=== PATIENT | female | born 1985 | race African-American/Black ===

== ENCOUNTER 2021-06-19 17:02 | Emergency (ER) | payer MEDICAID, OTHER ==
[2021-06-19 21:24] VITALS: BP 117/75
--- NOTE | 2021-06-19 21:38 | REPVR ---
PROCEDURE INFORMATION: Exam: XR Left Ankle Exam date and time: 06/19/2021 8:50 PM Age: 35 years old Clinical indication: Other: Left; Additional info: Left ankle pain TECHNIQUE: Imaging protocol: XR Left ankle. Views: 3 or more views. COMPARISON: No relevant prior studies available. FINDINGS: Bones/joints: Normal. Soft tissues: Normal. IMPRESSION: No acute findings. Electronically signed by: Joe Andrea On 06/19/2021 21:37:33 PM
== END 2021-06-19 21:26 | disposition home or self-care (01) ==
LOC: M ED 17:02
DX: F43.0 Acute stress reaction (principal); F31.9 Bipolar disorder, unspecified; Z88.5 Allergy status to narcotic agent; Z88.8 Allergy status to other drugs, medicaments and biological substances; Z91.040 Latex allergy status; J30.2 Other seasonal allergic rhinitis; F17.210 Nicotine dependence, cigarettes, uncomplicated; F12.20 Cannabis dependence, uncomplicated

== ENCOUNTER 2021-06-21 20:52 | Emergency (ER) | payer MEDICAID, OTHER ==
[~2021-06-21] VITALS: Ht 154.9 cm; Wt 62.7 kg
--- OUTSIDE RECORDS SUMMARY | 2021-06-21 20:56 | CCD | Continuity of Care Document ---
Author [place] Resendez [facility] Organization Unknown Address [facility] [address] [place] [address] Phone [phone] Care Team Providers Care Chief Dispatcher Name Role Phone Narinder Lima M.D. AUTM [phone] [facility]M [facility] 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 other cause Narinder Lima MD Onset: 12/14/2016 Mood disorder Ry Rodriguez PA-C Onset: 11/04/2017 Personality disorder Jesus Soliz LCSW Onset: 06/19/2020 Cannabis dependence, uncomplicated Jesus Soliz LCSW Onse t: 06/19/2020 Cobalamin deficiency Narinder Lima MD Onset: 05/07/2021 Allergic rhinitis Narinder Lima MD Onset: 02/04/2021 Migraine without aura, not refractory Narinder Lima MD On set: 02/04/2021 Social History Type Date Description Comments Sex Unknown Tobacco Use Start: Unknown Light tobacco smoker (10 or fewe r cigarettes/day) Tobacco Use Start: Unknown Never Smoked Cigars Tobacco Use Start: Unknown Never Smoked A Pipe Tobacco Use Start: Unknown Never Used Smokeless Tobacco ETOH Use Denies alcohol use Recreational Drug Use Regularly uses Marijuana s tates she will stop during Tobacco Use Start: Unknown Patient is a current smoker, smo kes every day ANASTASIA: 01/06/2020 Estimated Date of Delivery Based on LMP ANASTASIA: 07/12/2016 Estimated Date of Delivery Based on Final ANASTASIA Allergies and adverse reactions Active Allergies Criticality Reaction | Severity Comments Date Opioids Unable to assess criticality Urticaria | Mild 03/23/2016 NKFA Unable to assess criticality 03/23/2016 Latex Unable to assess criticality Hives | Moderate 01/11/2017 Seasonal Unable to assess criticality 08/12/2020 Medications Active Medications SIG Qnty Indications Ordering Provide r Date Metronidazole 500mg Tablets one tab by mouth twice daily for 7 days 14tabs Carlos Ybarra M.D. 05/19/2021 Fluconazole 150mg Tablets take 1 by mouth once on days 1, 3 and 7 #3 3tabs Ezequiel Capone 05/19/2021 Cipro 250mg Tablets 1 tab by mouth twice a day 6tabs Narinder Lima MD 05/08/2021 Emgality 120mg/ml Solution Auto-In ject give one dose sc monthly. 3ml G43.009 Narinder Lima MD Fluconazole 150mg Tablets take 1 by mouth once on days 1, 3 and 7 #3 3tabs B37.3 Ezequiel Capone 05/07/2021 Vitamin B-12 1000mcg Tablets 1 by mouth every day 90tabs Narinder Lima MD 03/24/2021 Rizatriptan Benzoate 10mg Tablets Dispers dissolve 1 tablet in mouth once daily as needed max of 6 headaches per week (may repeat once after two hrs) 18tabs Narinder Lima MD 01/02/2021 Vraylar 1.5mg Capsules take one capsule by mouth daily for thoughts 30caps F31.60 Derek Pyle MD 1 10/11/2019 F60.9 F06.33 Ibuprofen 800mg Tablets Garret Donohue 08/09/2020 Vitamin D (Ergocalciferol) 1.25mg (29878 Ut) Capsules 1 cap by mouth every two weeks 6caps E55.9 Narinder Lima MD 05/13/2020 Montelukast Sodium 10mg Tablets 1 by mouth every day 90tabs J30.9 Narinder Lima MD 05/13/2020 History Medications Rizatriptan Benzoate 10mg Tablets Dispers Dissolve 1 Tablet In Mouth Once Daily as Needed Max Of 2-4 Headaches Per Week 12tabs G43.109 Narinder Lima MD 01/02/2021 - 01/02/2021 Naproxen 500mg Tablets one tablet by mouth twice a day, after meals, as needed, for pain. 28tabs M62.830 Gray Schmitt MD 12/24/2020 - 05/07/2021 Tizanidine HCL 4mg Tablets 1 tablet by mouth every [address], or operate machinery, while taking this medication. 42tabs M62.830 Kat Schmitt MD 12/24/2020 - Medications Administered in Office Medication SIG Qnty Indications Ordering Provider Date Ketorolac (Toradol) Inj 30MG/ML Injection Juliana Hogan PA-C 1 Ketorolac (Toradol) Inj 30MG/ML Injection Jose F Negro PA-C 12/01/19 21 Ketorolac (Toradol) Inj 30MG/ML Injection Narinder Lima MD 11/18/19 17 Immunizations CPT Code Status Date Vaccine Lot # [id number] Given 05/13/2020 Influenza (>= 6 Months) P.F. Vaccine [id number] Given 06/14/2018 Influenza (>= 6 Months) P.F. Vaccine [id number] Vital Signs Date Vital Result Comment 05/07/2021 1:52pm BP Systolic 128 mmHg BP Diastolic 82 mmHg Respiratory Rate 16 /min 05/07/2021 1:24pm BP Systolic 134 mmHg BP Diastolic 72 mmHg Heart Rate 88 /min Body Temperature 97.3 F Respiratory Rate 18 /min O2 % BldC Oximetry 93 % Weight 148.00 lb Weight 67.133 kg Height 61 inches 5'1" BMI (Body Mass Index) 28.0 kg/m2 BSA (Body Surface Area) 1.66 m2 Results Test Acquired Date Facility Test Result H/L Range Note Covid And Flu 05/30/2021 [facility] Influenza A Amplification NEGATIVE Normal Negative 1 Influenza B Amplification NEGATIVE Normal Negative 2 RSV Amplification NEGATIVE Normal Negative 3 Sars Covid-19 Amplification NEGATIVE Normal Negative 4 Laboratory test finding 05/30/2021 [facility] [place] Level 0.34 mEq/L Low 0.60-1.20 5 Liver Profile 05/30/2021 [facility] Ast/Sgot 19 U/L Normal 7-37 Alt/SGPT 23 U/L Normal 12-78 Alkaline Phosphatase 83 U/L Normal 45-117 Bilirubin,Total 0.7 mg/dL Normal 0.2-1.0 Bilirubin,Direct 0.2 mg/dL Normal 0.0-0.2 Total Protein 8.1 GM/DL Normal 6.4-8.2 Albumin 4.4 GM/DL Normal 3.2-5.2 Albumin/Globulin Ratio 1.2 Normal 1.2-2.2 Basic Metabolic Profile 05/30/2021 [facility] Glucose, Fasting 96 mg/dL Normal 70-100 Blood Urea Nitrogen 18 mg/dL Normal 7-18 Creatinine For GFR 1.05 mg/dL Normal 0.55-1.30 Glomerular Filtration Rate > 60.0 Normal >60 6 Sodium Level 141 mEq/L Normal 136-145 Potassium Serum 3.8 mEq/L Normal 3.5-5.1 Chloride Level 107 mEq/L Normal 98-107 Carbon Dioxide Level 26 mEq/L Normal 21-32 Anion Gap 8 mEq/L Normal 8-16 Calcium Level 10.2 mg/dL High 8.5-10.1 Laboratory test finding 05/30/2021 [facility] Ethyl Alcohol (Ethanol) < 0.003 % Normal 0.000-0.010 7 Salicylate Level 5.4 mg/dL Normal 5.0-30.0 8 Acetaminophen Level < 2.0 UG/ML Low 10.0-30.0 9 Thyroid Stimulating Hormone 0.283 uIU/ML Low 0.358-3.740 10 HCG Serum Qualitative NEGATIVE Normal Negative 11 Drug Eval Toxicology ED Only 05/30/2021 [facility] Amphetamines Level Urine NEGATIVE Normal Negative Barbiturates Urine NEGATIVE Normal Negative Benzodiazepines Urine NEGATIVE Normal Negative Cannabinoids Urine POSITIVE High Negative Cocaine Metabolite Urine POSITIVE High Negative Methadone Urine NEGATIVE Normal Negative Opiates Urine NEGATIVE Normal Negative Phencyclidine Urine NEGATIVE Normal Negative 12 Complete Blood Count 05/30/2021 [facility] White Blood Count 17.0 10 High 4.0-10.0 Red Blood Count 4.67 10 Normal 4.00-5.40 Hemoglobin 14.4 g/dL Normal 12.0-15.5 Hematocrit 44.1 % Normal 36.0-47.0 Mean Corpuscular Volume 94.4 fl Normal 80.0-96.0 Mean Corpuscular Hemoglobin 30.8 pg Normal 27.0-33.0 Mean Corpuscular HGB Conc 32.7 g/dL Normal 32.0-36.5 Red Cell Distribution Width 13.5 % Normal 11.5-14.5 Platelet Count, Automated 356 10 Normal 150-450 Nucleated Red Blood Cell % 0.0 % Normal 0-0 Comprehensive Metabolic Panel 05/16/2021 [facility] Comprehensive Metabo (SEE NOTE) 13, 14 Sodium 138 mEq/L 134 - 153 Potassium 4.0 mEq/L 3.6 - 5.0 Chloride 104 mEq/L 98 - 107 Co2 23 mEq/L 22 - 30 Glucose 100 mg/dL High 70 - 99 BUN 12 mg/dL 7 - 21 Creatinine 0.6 mg/dL Low 0.7 - 1.5 BUN/Creat 20 8 - 27 Total Protein 7.1 g/dL 6.3 - 8.2 Albumin 4.8 g/dL 3.9 - 5.0 Globulin 2.3 GM/DL Low 2.4 - 3.2 A/G Ratio 2.1 High 0.8 - 2.0 Calcium 9.6 mg/dL 8.4 - 10.2 Total Bili <0.7 mg/dL 0.2 - 1.3 Alkaline Phos 75 U/L 38 - 126 Sgot/Ast 13 U/L 5 - 40 SGPT/Alt 11 U/L 7 - 56 Anion Gap 11.0 mmol/L 8.0 - 16.0 Age 35 yrs Non-Aa GFR >60 mL/min Afr Amer GFR >60 mL/min 15 HCV Fibrosure 05/16/2021 [facility] Fibrosis Score 0.02 NA 0.00-0.21 Fibrosis Stage COMMENT 16 Necroinflammat ActivityScore 0.03 NA 0.00-0.17 Necroinflammat ActivityGrade A0-No activity Alpha 2-Macroglobulins,Qn 157 mg/dL 110-276 Haptoglobin 228 mg/dL 33-278 Apolipoprotein A-1 105 mg/dL Low 116-209 Bilirubin, Total 0.1 mg/dL 0.0-1.2 GGT 12 IU/L 0-60 Alt (SGPT) P5P 13 IU/L 0-40 Interpretations: COMMENT 17 Fibrosis Scoring: COMMENT 18 Necroinflamm ActivityScoring: COMMENT 19 Limitations: COMMENT 20 Comment: WILL FOLLOW Herpes I&II Igm AB 05/16/2021 [facility] HSV, IgM I/II Combination <0.91 Ratio 0.00-0.90 21 Herpes Simplex Virus I/II Igg 05/16/2021 [facility] HSV 1 IgG, Type Spec <0.91 index 0.00-0.90 22 HSV 2 IgG, Type Spec 2.06 index High 0.00-0.90 23 HSV-2 IgG SupplementalTest Positive Abnormal Negative 2 4 HIV Panel 05/16/2021 [facility] HIV Screen 4thGeneration wRfx Non Reactive Non Reacti ve Laboratory test finding 05/16/2021 [facility] Syphilis NON-REACTIVE Normal:Non Reactive Hepatitis B Surf Antigen NONREACTIVE Normal:Non React stephanie Hep C Antibody With Reflex Quant PCR <0.1 s/coratio 0. 0-0.9 Laboratory test finding 05/16/2021 [facility] Ferritin Fallon 47.6 ng/mL 3.0 - 105 Iron Binding Capacity 05/16/2021 [facility] Iron 45 g/dL 42 - 135 Uibc 215 g/dL 112 - 347 Tibc 260 g/dL 250 - 450 Iron Sat 17 % Laboratory test finding 05/16/2021 [facility] Vitamin D (25-Hydroxy) 23 NG/ML 25 CBC W/Automated Diff 05/16/2021 [facility] CBC W/Automated Diff (SEE NOTE) 26 WBC 12.6 10^3/uL High 4.2 - 11.0 RBC 4.44 10^6/uL 4.20 - 5.40 Hemoglobin 14.0 g/dL 12.0 - 16.0 Hematocrit 41.6 % 37.0 - 47.0 MCV 93.7 fL 81.0 - 101 MCH 31.5 pg 27.0 - 34.0 MCHC 33.7 g/dL 31.0 - 36.0 RDW 13.9 % 11.5 - 14.5 Platelets 210 10^3/uL 150 - 450 MPV 9.1 fL 7.4 - 10.4 Neut 66.7 % 37.0 - 80.0 Lymph 24.8 % Low 25.0 - 40.0 Kendall 6.6 % 3.0 - 8.0 Eos 1.4 % 0.0 - 7.0 Baso 0.2 % 0.0 - 2.5 %Ig 0.3 % High 0.0 - 0.0 %NRBC 0.0 % 0.0 - 0.0 #Neut 8.36 10^3/uL High 2.00 - 6.90 #Lymph 3.12 10^3/uL 0.60 - 3.40 #Kendall 0.83 10^3/uL 0.00 - 0.90 #Eos 0.18 10^3/uL 0.00 - 0.70 #Baso 0.03 10^3/uL 0.00 - 0.20 #Ig 0.04 10^3/uL 0.00 - 0.10 #NRBC 0.00 10^3/uL 0.00 - 0.00 Manual Diff NOT INDICATED RBC Morph NOT INDICATED Laboratory test finding 05/16/2021 [facility] Vitamin B12 Serum 353 pg/mL 232 - 1245 Covid-19 05/12/2021 [facility] Sars-CoV-2, Bev Not Detected Not Detected 27, 28 Sars-CoV-2, Bev 2 Day Tat Performed Cuture Urine 05/07/2021 [facility] Culture Urine (SEE NOTE) 29, 30 Ua With Reflex To Ua Culture 05/07/2021 [facility] Ua Reflex To Ua Cult (SEE NOTE) 31 Source R Color yellow Normal: Yellow Clarity hazy Normal: Clear Spec Krebs 1.020 1.001 - 1.030 pH 6 5 - 9 Glucose NORM Normal: Negative Bilirubin NEG Normal: Negative Ketone NEG Normal: Negative Protein 15 Normal: Negative Nitrite POS Normal: Negative Blood 10 Abnormal Normal: Negative Leuk Est 25 Normal: Negative Urobilinogen NOR less than 1.0 mg/dL Microscopic See Below WBC 5 - 7 Abnormal Normal: None Seen RBC 1 - 3 Normal: None Seen Epithelial None Seen Normal: None Seen Bacteria 3+ LARGE Abnormal Normal: None Seen Mucous 1+ Normal: None Seen Yeast Few Abnormal 32 Chlamydia GC/Trich 05/07/2021 [facility] Source: Genital 33 Chlamydia by Bev Negative Negative Gonococcus by Bev Negative Negative Trich vag by Bev Negative Negative Bacterial Vaginosis 05/07/2021 [facility] Source: Genital Ladi species Positive Abnormal Negative Gardnerella vaginalis Positive Abnormal Negative Trichomonas vaginalis Negative Negative Chlamydia/GC 05/07/2021 [facility] Chlam Trach QL Dna Probe <pending> GC By Dna Cervical Mucus <pending> Affirm Vaginitis Panel 05/07/2021 [facility] Z#Other Observations <pending> Covid-19 04/13/2021 [facility] Sars-CoV-2, Bev Not Detected Not Detected 34 Sars-CoV-2, Bev 2 Day Tat Performed Laboratory test finding 03/26/2021 [facility] Ferritin 73 NG/ML Normal 8-252 35 Total Iron Binding Capacit 03/26/2021 [facility] Iron (Fe) 78 g/dL Normal 50-170 Total Iron Binding Capacity 256 g/dL Normal 250-450 Percent Saturation 30.5 % Normal 13.2-45.0 Comprehensive Metabolic Profil 03/26/2021 [facility] Glucose, Fasting 109 mg/dL High 70-100 Blood Urea Nitrogen 14 mg/dL Normal 7-18 Creatinine For GFR 0.66 mg/dL Normal 0.55-1.30 Glomerular Filtration Rate > 60.0 Normal >60 3 6 Sodium Level 141 mEq/L Normal 136-145 Potassium Serum 3.9 mEq/L Normal 3.5-5.1 Chloride Level 111 mEq/L High 98-107 Carbon Dioxide Level 26 mEq/L Normal 21-32 Anion Gap 4 mEq/L Low 8-16 Calcium Level 8.9 mg/dL Normal 8.5-10.1 Ast/Sgot 12 U/L Normal 7-37 Alt/SGPT 18 U/L Normal 12-78 Alkaline Phosphatase 76 U/L Normal 45-117 Bilirubin,Total 0.5 mg/dL Normal 0.2-1.0 Total Protein 7.2 GM/DL Normal 6.4-8.2 Albumin 3.9 GM/DL Normal 3.2-5.2 Albumin/Globulin Ratio 1.2 Normal 1.2-2.2 CBC With Differential 03/26/2021 [facility] White Blood Count 9.9 10 Normal 4.0-10.0 Red Blood Count 4.22 10 Normal 4.00-5.40 Hemoglobin 13.1 g/dL Normal 12.0-15.5 Hematocrit 39.7 % Normal 36.0-47.0 Mean Corpuscular Volume 94.1 fl Normal 80.0-96.0 Mean Corpuscular Hemoglobin 31.0 pg Normal 27.0-33.0 Mean Corpuscular HGB Conc 33.0 g/dL Normal 32.0-36.5 Red Cell Distribution Width 14.5 % Normal 11.5-14.5 Platelet Count, Automated 245 10 Normal 150-450 Neutrophils % 64.3 % Normal 36.0-66.0 Lymph % 27.1 % Normal 24.0-44.0 Kendall % 6.4 % Normal 2.0-8.0 Eos % 1.5 % Normal 0.0-3.0 Baso % 0.3 % Normal 0.0-1.0 Immature Granulocyte % 0.4 % Normal 0-3.0 Nucleated Red Blood Cell % 0.0 % Normal 0-0 Neutrophils # 6.4 10 Normal 1.5-8.5 Lymph # 2.7 10 Normal 1.5-5.0 Kendall # 0.6 10 Normal 0.0-0.8 Eos # 0.2 10 Normal 0.0-0.5 Baso # 0.0 10 Normal 0.0-0.2 Covid-19 02/07/2021 [facility] Sars-CoV-2, Bev Not Detected Not Detected 37 Sars-CoV-2, Bev 2 Day Tat Performed Laboratory test finding 02/04/2021 [facility] l Ferritin Fallon 63.5 ng/mL 3.0 - 105 38 Iron Binding Capacity 02/04/2021 [facility] Iron 58 g/dL 42 - 135 Uibc 173 g/dL 112 - 347 Tibc 231 g/dL Low 250 - 450 Iron Sat 25 % CBC W/Automated Diff 02/04/2021 [facility] CBC W/Automated Diff (SEE NOTE) 39 WBC 10.1 10^3/uL 4.2 - 11.0 RBC 4.55 10^6/uL 4.20 - 5.40 Hemoglobin 13.7 g/dL 12.0 - 16.0 Hematocrit 41.2 % 37.0 - 47.0 MCV 90.5 fL 81.0 - 101 MCH 30.1 pg 27.0 - 34.0 MCHC 33.3 g/dL 31.0 - 36.0 RDW 15.1 % High 11.5 - 14.5 Platelets 259 10^3/uL 150 - 450 MPV 9.1 fL 7.4 - 10.4 Neut 54.3 % 37.0 - 80.0 Lymph 34.6 % 25.0 - 40.0 Kendall 7.5 % 3.0 - 8.0 Eos 2.8 % 0.0 - 7.0 Baso 0.4 % 0.0 - 2.5 %Ig 0.4 % High 0.0 - 0.0 %NRBC 0.0 % 0.0 - 0.0 #Neut 5.48 10^3/uL 2.00 - 6.90 #Lymph 3.49 10^3/uL High 0.60 - 3.40 #Kendall 0.76 10^3/uL 0.00 - 0.90 #Eos 0.28 10^3/uL 0.00 - 0.70 #Baso 0.04 10^3/uL 0.00 - 0.20 #Ig 0.04 10^3/uL 0.00 - 0.10 #NRBC 0.00 10^3/uL 0.00 - 0.00 Manual Diff NOT INDICATED RBC Morph NOT INDICATED Laboratory test finding 02/04/2021 [facility] l Vitamin B12 Serum 204 pg/mL Low 232 - 1245 Vitamin D (25-Hydroxy) 19 NG/ML 40 Comprehensive Metabolic Panel 02/04/2021 [facility] Comprehensive Metabo (SEE NOTE) 41 Sodium 138 mEq/L 134 - 153 Potassium 4.2 mEq/L 3.6 - 5.0 Chloride 104 mEq/L 98 - 107 Co2 24 mEq/L 22 - 30 Glucose 106 mg/dL High 70 - 99 BUN 8 mg/dL 7 - 21 Creatinine 0.6 mg/dL Low 0.7 - 1.5 BUN/Creat 13 8 - 27 Total Protein 6.8 g/dL 6.3 - 8.2 Albumin 4.5 g/dL 3.9 - 5.0 Globulin 2.3 GM/DL Low 2.4 - 3.2 A/G Ratio 2.0 0.8 - 2.0 Calcium 9.3 mg/dL 8.4 - 10.2 Total Bili <0.7 mg/dL 0.2 - 1.3 Alkaline Phos 89 U/L 38 - 126 Sgot/Ast 16 U/L 5 - 40 SGPT/Alt 7 U/L 7 - 56 Anion Gap 10.0 mmol/L 8.0 - 16.0 Age 35 yrs Non-Aa GFR >60 mL/min Afr Amer GFR >60 mL/min 42 Laboratory test finding 01/27/2021 [facility] T4 - Free 1.27 ng/dL 0.93 - 1.70 TSH Highly Sensitive 0.34 uIU/mL Low 0.47 - 5.01 Inhouse-Influenza A&B Rna Prob 12/13/2020 In Office Influenza Virus A QL PCR negative Negative Influenza Virus B QL PCR negative Negative Laboratory test finding 12/13/2020 [facility] Coronavirus Covid-19 Not Detected Not Detected 43 1 Negative results do not prec lude influenza or RSV virus infection and should not be used as the sole basis for treatment or other patient management decisions. 2 Negative results do not prec lude influenza or RSV virus infection and should not be used as the sole basis for treatment or other patient management decisions. 3 Negative results do not prec lude influenza or RSV virus infection and should not be used as the sole basis for treatment or other patient management decisions. 4 A false negative result may occur if a specimen is improperly collected, transported or handled. False negative results may also occur if inadequate numbers of organisms are present in the specimen. As with any molecular test, mutations within the target regions of Xpert Xpress SARS-CoV-2 could affect primer and/or probe binding resulting in failure to detect the presence of virus. This test cannot rule out diseases caused by other bacterial or viral pathogens. DISCLAIMER: Testing was performed using the [employer] SARS-CoV-2 test. This test was developed and its performance characteristics determined by [employer]. This test has not been FDA cleared or approved. This test has been authorized by FDA under an Emergency Use Authorization (EUA). This test is only authorized for the duration of time the declaration that circumstances exist justifying the authorization of the emergency use of in vitro diagnostic tests for detection of SARS-CoV-2 virus and/or diagnosis of COVID-19 infection under section 564(b)(1) of the Act, 21 U.S.C. 360bbb-3(b)(1), unless the authorization is terminated or revoked sooner. 5 note:<nlbl:demographic_chang ed> 6 Units are mL/min/1.73 m2 Chronic Kidney Disease Staging per NKF: Stage I & II GFR >=60 Normal to Mildly Decreased Stage III GFR 30-59 Moderately Decreased Stage IV GFR 15-29 Severely Decreased Stage V GFR <15 Very Little GFR Left ESRD GFR <15 on [facility] 7 note:<nlbl:demographic_chang ed> 8 note:<nlbl:demographic_chang ed> 9 note:<nlbl:demographic_[facility] ed> 10 note:<nlbl:demographic_[facility] ed> 11 note:<nlbl:demographic_[facility] ed> 12 ALL PRESUMPTIVE POSITIVE FINDINGS ARE UNCONFIRMED THRESHOLD IN NG/ML AMPHETAMINES/METHAMPHET 1000 BARBITURATES 200 BENZODIAZEPINES 200 CANNABINOIDS (THC) 50 COCAINE METABOLITE 300 METHADONE 300 OPIATES 300 PHENCYCLIDINE 25 RESULTS ARE FOR MEDICAL PURPOSES ONLY. ALL URINE SPECIMENS WILL BE SAVED FOR 3 DAYS. IF CONFIRMATION OF A PRESUMPTIVE POSITIVE SCREEN RESULT IS DESIRED, CALL CHEMISTRY ([phone]) AND REQUEST URINE TO BE SENT TO REFERENCE LAB. FOR A LIST OF CLOSELY RELATED COMPOUNDS PLEASE CALL THE LAB. 13 .~.~<DG1.3.1>D51.9</DG1.3.1><DG1.3.1>D51.9</DG1.3.1><DG1.3.1>E55.9</DG1.3.1><DG1 .3.1 Is patient fasting? N~.~.~<DG1.3.1>D51.9</DG1.3.1><DG1.3.1> D51.9</DG1.3.1><DG1.3.1>E55.9</DG1.3. .~.~<DG1.3.1>D51.9</DG1.3.1><DG1.3.1>D51.9</DG1.3.1><DG1.3.1>E55.9</DG1.3.1><DG1 .3.1 .~.~<DG1.3.1>D51.9& lt;/DG1.3.1><DG1.3.1>D51.9</DG1.3.1><DG1.3.1>E55.9</DG1.3.1><DG1.3.1 .~.~<DG1.3.1>D51.9</DG1.3.1><DG1.3.1>D51.9</DG1.3.1><DG1.3.1>E55.9</DG1.3.1><DG1 .3.1 14 COMPREHENSIVE METABOLIC PANE L 15 Male GFR Interprentation 20-49 yrs >60 mL/min Normal 50-59 yrs >56 mL/min Normal 60-69 yrs >49 mL/min Normal 70-79yrs >42 mL/min Normal 80 and above >35 mL/min Normal Female GFR Interpretation 20-39 yrs >60 mL/min Normal 40-49 yrs >58 mL/min Normal 50-59 yrs >51 mL/min Normal 60-69 yrs >45 mL/min Normal 70-79 yrs >39 mL/min Normal 80 and above >32 mL/min Normal 16 F0 - No fibrosis 17 Quantitative results of 6 bi ochemical tests are analyzed using a computational algorithm to provide a quantitative surrogate marker (0.0-1.0) for liver fibrosis (METAVIR F0-F4) and for necroinflammatory activity (METAVIR A0-A3). 18 <=0.21 = Stage F0 - No fibro sis 0.21 - 0.27 = Stage F0 - F1 0.27 - 0.31 = Stage F1 - Portal fibrosis 0.31 - 0.48 = Stage F1 - F2 0.48 - 0.58 = Stage F2 - Bridging fibros is with few septa 0.58 - 0.72 = Stage F3 - Bridging fibros is with many septa 0.72 - 0.74 = Stage F3 - F4 >0.74 = Stage F4 - Cirrhosis 19 <0.17 = Grade A0 - No Activi ty 0.17 - 0.29 = Grade A0 - A1 0.29 - 0.36 = Grade A1 - Minimal activit y 0.36 - 0.52 = Grade A1 - A2 0.52 - 0.60 = Grade A2 - Moderate activi ty 0.60 - 0.62 = Grade A2 - A3 >0.62 = Grade A3 - Severe activity 20 The negative predictive valu e of a Fibrotest score <0.31 (absence of clinically significant fibrosis) was 85% when compared to liver biopsy in 1,270 HCV infected patients with a 38% prevalence of significant liver fibrosis (F2, 3 or 4). The positive predictive value of a Fibro- test score >0.48 (F2, 3, 4) was 61% in that same patient cohort. HCV FibroSURE is not recommended in patients with Gilbert Disease, acute hemolysis (e.g. HCV ribavirin therapy mediated hemolysis) acute hepa- titis of the liver, extra-hepatic cholestasis, transplant patients, and/or renal insufficiency patients. Any of these clinical situations may lead to inaccurate quantitative predictions of fibrosis and necroinflammatory activity in the liver. 21 Negative <0.91 Equivocal 0.91 - 1.09 Positive >1.09 22 Negative <0.91 Equivocal 0.91 - 1.09 Positive >1.09 Note: Negative indicates no antibodies detected to HSV-1. Equivocal may suggest early infection. If clinically appropriate, retest at later date. Positive indicates antibodies detected to HSV-1. 23 Negative <0.91 Equivocal 0.91 - 1.09 Positive >1.09 Note: Negative indicates no antibodies detected to HSV-2. Equivocal may suggest early infection. If clinically appropriate, retest at later date. Positive indicates antibodies detected to HSV-2. 24 HSV-2 IgG HSV-2 IgG Type Specific Confirmation Interpretation Positive/Equivocal Positive Indicates the presence of detectable IgG antibodies to HSV-2. Positive/Equivocal Negative Unable to confirm the presence of IgG antibodies to HSV-2. Recommend retesting in 2-4 weeks. 25 VITAMIN-D(25HYDROXY) Deficiency: <=20 ng/ml Insufficiency: 21-29 ng/ml Preferred level: => 30 ng/ml 26 COMPLETE BLOOD COUNT 27 .~.~Z11.59 28 This nucleic acid amplificat ion test was developed and its performance characteristics determined by [employer]. Nucleic acid amplification tests include RT-PCR and TMA. This test has not been FDA cleared or approved. This test has been authorized by FDA under an Emergency Use Authorization (EUA). This test is only authorized for the duration of time the declaration that circumstances exist justifying the authorization of the emergency use of in vitro diagnostic tests for detection of SARS-CoV-2 virus and/or diagnosis of COVID-19 infection under section 564(b)(1) of the Act, 21 U.S.C. 360bbb-3(b) (1), unless the authorizatio n is terminated or revoked sooner. When diagnostic testing is negative, the possibility of a false negative result should be considered in the context of a patient's recent exposures and the presence of clinical signs and symptoms consistent with COVID-19. An individual without symptoms of COVID-19 and who is not shedding SARS-CoV-2 virus would expect to have a negative (not detected) result in this assay. 29 .~.~R30.0 30 _CULTURE URINE_ ^$[id number] ^^[id number] $$[id number] ^^[id number] $$[id number] $$802113 $$431069 $$521880 $$134280 $$167370 $$523439 $$652342 $$604336 $$396670 $$643484 $$157361 $$000880 $$306326 $$903817 $$932123 $$723211 $$158035 $$482564 $$507748 $$258491 $$440477 $$625174 ^^058116 $$986273 $$557592 $$[id number] -- Continued on next page -- Patient: POORNIMA Denney Order: [id number] Page 2 Culture: CULTURE URINE Status: Final -- Continued on next page -- Patient: POORNIMA Denney Order: [id number] Page 2 Culture: CULTURE URINE Status: Prelim -- Continued on next page -- Patient: POORNIMA Denney Order: [id number] Page 2 Culture: CULTURE URINE Status: Prelim $$[id number] $$[id number] REPORTED DATE/TIME: 05/14/2021 12:06 Culture: CULTURE URINE Status: Final Isolate 1 Escherichia coli Flag: A . . . . . . .1 Greater than 100,000 colony forming units per mL Cefazolin <=4 ug/mL Cefazolin with an CRISTINA <=16 predicts susceptibility to the oral agents cefaclor, cefdinir, cefpodoxime, cefprozil, cefuroxime, cephalexin, and loracarbef when used for therapy of uncomplicated urinary tract infections due to E. coli, Klebsiella pneumoniae, and Proteus mirabilis. Previous result entered on 05/13/2021 09:26 ET Escherichia coli Susceptibility results being verified. Final report to follow. Previous result entered on 05/11/2021 07:12 ET Gram negative rods Urine Culture,Comprehensive: P1 Escherichia coli Flag: A Patient: POORNIMA Denney Order: [id number] Page 3 Culture: CULTURE URINE Status: Final ISOLATE 1 Escherichia coli Isolate 1 Antibiotic CRISTINA Int Units ug/mL Amoxicillin/Clavulanic Acid S S . . . . . .20-8 Ampicillin S S . . . . . .28-1 Cefepime S S . . . . . .6644-9 Ceftriaxone S S . . . . . .141-2 Cefuroxime S S . . . . . .145-3 Ciprofloxacin S S . . . . . .185-9 Ertapenem S S . . . . . .48062-1 Gentamicin S S . . . . . .267-5 Imipenem S S . . . . . .279-0 Levofloxacin S S . . . . . .26798-6 Meropenem S S . . . . . .6652-2 Nitrofurantoin S S . . . . . .363-2 Piperacillin/Tazobactam S S . . . . . .412-7 Tetracycline S S . . . . . .496-0 Tobramycin S S . . . . . .508-2 Trimethoprim/Sulfa S S . . . . . .516-5 P1 Test performed by: [facility] #: [id number] [address] [place] [address] [id number] [facility] [id number] Materials Development Engineer : Armando Lang MD NPI #: Molded Rubber Goods Cutter : 05/12/[id number].XMT.SENT REF 05/13/21.1623.XMT.SENT REF 05/14/21.1406.XMT.SENT REF 31 URINALYSIS 32 HYPAE YEAST 33 {SOURCE: Genital 34 This nucleic acid amplificat ion test was developed and its performance characteristics determined by [employer]. Nucleic acid amplification tests include RT-PCR and TMA. This test has not been FDA cleared or approved. This test has been authorized by FDA under an Emergency Use Authorization (EUA). This test is only authorized for the duration of time the declaration that circumstances exist justifying the authorization of the emergency use of in vitro diagnostic tests for detection of SARS-CoV-2 virus and/or diagnosis of COVID-19 infection under section 564(b)(1) of the Act, 21 U.S.C. 360bbb-3(b) (1), unless the authorizatio n is terminated or revoked sooner. When diagnostic testing is negative, the possibility of a false negative result should be considered in the context of a patient's recent exposures and the presence of clinical signs and symptoms consistent with COVID-19. An individual without symptoms of COVID-19 and who is not shedding SARS-CoV-2 virus would expect to have a negative (not detected) result in this assay. 35 note:<nlbl:[facility]_chang ed> 36 Units are mL/min/1.73 m2 Chronic Kidney Disease Staging per NKF: Stage I & II GFR >=60 Normal to Mildly Decreased Stage III GFR 30-59 Moderately Decreased Stage IV GFR 15-29 Severely Decreased Stage V GFR <15 Very Little GFR Left ESRD GFR <15 on [facility] 37 This nucleic acid amplificat ion test was developed and its performance characteristics determined by [employer]. Nucleic acid amplification tests include RT-PCR and TMA. This test has not been FDA cleared or approved. This test has been authorized by FDA under an Emergency Use Authorization (EUA). This test is only authorized for the duration of time the declaration that circumstances exist justifying the authorization of the emergency use of in vitro diagnostic tests for detection of SARS-CoV-2 virus and/or diagnosis of COVID-19 infection under section 564(b)(1) of the Act, 21 U.S.C. 360bbb-3(b) (1), unless the authorizatio n is terminated or revoked sooner. When diagnostic testing is negative, the possibility of a false negative result should be considered in the context of a patient's recent exposures and the presence of clinical signs and symptoms consistent with COVID-19. An individual without symptoms of COVID-19 and who is not shedding SARS-CoV-2 virus would expect to have a negative (not detected) result in this assay. 38 Is patient fasting? N 39 COMPLETE BLOOD COUNT 40 VITAMIN-D(25HYDROXY) Deficiency: <=20 ng/ml Insufficiency: 21-29 ng/ml Preferred level: => 30 ng/ml 41 COMPREH[address]IVE METABOLIC PANE L 42 Male GFR Interprentation 20-49 yrs >60 mL/min Normal 50-59 yrs >56 mL/min Normal 60-69 yrs >49 mL/min Normal 70-79yrs >42 mL/min Normal 80 and above >35 mL/min Normal Female GFR Interpretation 20-39 yrs >60 mL/min Normal 40-49 yrs >58 mL/min Normal 50-59 yrs >51 mL/min Normal 60-69 yrs >45 mL/min Normal 70-79 yrs >39 mL/min Normal 80 and above >32 mL/min Normal 43 This nucleic acid amplificat ion test was developed and its performance characteristics determined by [employer]. Nucleic acid amplification tests include RT-PCR and TMA. This test has not been FDA cleared or approved. This test has been authorized by FDA under an Emergency Use Authorization (EUA). This test is only authorized for the duration of time the declaration that circumstances exist justifying the authorization of the emergency use of in vitro diagnostic tests for detection of SARS-CoV-2 virus and/or diagnosis of COVID-19 infection under section 564(b)(1) of the Act, 21 U.S.C. 360bbb-3(b) (1), unless the authorizatio n is terminated or revoked sooner. When diagnostic testing is negative, the possibility of a false negative result should be considered in the context of a patient's recent exposures and the presence of clinical signs and symptoms consistent with COVID-19. An individual without symptoms of COVID-19 and who is not shedding SARS-CoV-2 virus would expect to have a negative (not detected) result in this assay. Procedures Date Code Description Status 05/07/2021 51078 Office/Outpatient Established Lo w MDM 20-29 Min Completed 05/07/2021 26319 Office/Outpatient New Low MDM 30 -44 Minutes Completed 05/07/2021 13879 Admin Patient Focused Health Ris k Assessment Instrument Completed 05/07/2021 14987 Brief Emotional/Beha v Assessment W/ Scoring Doc Per Standard Inst Completed 04/30/2021 27314 Office/Outpatient Established Mo d MDM 30-39 Min Completed 04/18/2021 74758 Office Visit New Level 1 Complet ed 04/13/2021 38500 Office/Outpatient Established Lo w MDM 20-29 Min Completed 04/13/2021 45586 Pulse Oximetry Single Determinat ion Completed 02/04/2021 52957 Office/Outpatient Established Lo w MDM 20-29 Min Completed 01/27/2021 82337 Office/Outpatient Established Mo d MDM 30-39 Min Completed 12/24/2020 48740 Office/Outpatient Established Lo w MDM 20-29 Min Completed 12/21/2020 52078 Office/Outpatient Established Lo w MDM 20-29 Min Completed 12/13/2020 31369 Office/Outpatient Established Lo w MDM 20-29 Min Completed Medical Devices Description No Information Available Encounters Description No Information Available Assessments Date Code Description Provider 06/11/2021 F31.60 Bipolar disorder, current episod e mixed, unspecified EM Muñiz, CASAC 06/11/2021 F12.20 Cannabis dependence, uncomplicat ed EM Muñiz, CASAC 06/03/2021 F31.60 Bipolar disorder, current episod e mixed, unspecified EM Muñiz, CASAC 06/03/2021 F12.20 Cannabis dependence, uncomplicat ed Amara Velazquez LM, CASAC 05/28/2021 F31.60 Bipolar disorder, current episod e mixed, unspecified Amara Velazquez LM, CASAC 05/28/2021 F12.20 Cannabis dependence, uncomplicat ed EM Muñiz, CASAC 05/14/2021 F31.60 Bipolar disorder, current episod e mixed, unspecified EM Muñiz, CASAC 05/14/2021 F12.20 Cannabis dependence, uncomplicat ed EM Muñiz, CASAC 05/07/2021 B37.3 Candidiasis of vulva and vagina Alma Kristyn, POT PUSHER 05/07/2021 Z11.3 Encounter for screen ing for infections with a predominantly sexual mode of transmission Alma O'joshua, POT PUSHER 05/07/2021 G43.009 Migraine without aur a, not intractable, without status migrainosus Narinder Lima MD 05/07/2021 E55.9 Vitamin D deficiency, unspecifie d Narinder Lima MD 05/07/2021 D51.9 Vitamin B12 deficiency anemia, u nspecified Narinder Lima MD 04/30/2021 F31.60 Bipolar disorder, current episod e mixed, unspecified Ry Rodriguez PA-C 04/30/2021 F12.20 Cannabis dependence, uncomplicat ed Ry Rodriguez PA-C 04/30/2021 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, in remission HANSEL FrancisC 04/18/2021 J06.9 Acute upper respiratory infectio n, unspecified Antwan Ragland, HANSELC 04/13/2021 A09 Infectious gastroenteritis and c olitis, unspecified Emmie Baker, IRIS-C 04/11/2021 F31.60 Bipolar disorder, current episod e mixed, unspecified EM Muñiz, CASAC 04/11/2021 F12.20 Cannabis dependence, uncomplicat ed EM Muñiz, CASAC 04/11/2021 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, in remission EM Greco, CASAC 03/12/2021 F31.60 Bipolar disorder, current episod e mixed, unspecified EM Muñiz, CASAC 03/12/2021 F12.20 Cannabis dependence, uncomplicat ed EM Muñiz, CASAC 03/12/2021 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, in remission EM Greco, CASAC 02/05/2021 F31.60 Bipolar disorder, current episod e mixed, unspecified EM Muñiz, CASAC 02/05/2021 F12.20 Cannabis dependence, uncomplicat ed EM Muñiz, CASAC 02/05/2021 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, in remission EM Greco, CASAC 02/04/2021 G43.009 Migraine without aur a, not intractable, without status migrainosus Narinder Lima MD 02/04/2021 E55.9 Vitamin D deficiency, unspecifie d Narinder Lima MD 02/04/2021 J30.9 Allergic rhinitis, unspecified H arjuank Patricia Lima MD 02/04/2021 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 Narinder Lima MD 02/04/2021 E61.1 Iron deficiency Narinder Lima MD 01/27/2021 F31.60 Bipolar disorder, current episod e mixed, unspecified Ry Rodriguez PA-C 01/27/2021 F12.20 Cannabis dependence, uncomplicat ed Ry Rodriguez PA-C 01/27/2021 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, in remission Santiago Rodriguez PA-C 01/01/2021 F31.60 Bipolar disorder, current episod e mixed, unspecified EM Muñiz, CASASHER 01/01/2021 F12.20 Cannabis dependence, uncomplicat ed EM Muñiz, MILTONAC 01/01/2021 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, in remission EM Greco, CASAC 12/24/2020 M62.830 Muscle spasm of back Ynoi Medel, NEETA 12/21/2020 G43.009 Migraine without aur a, not intractable, without status migrainosus Juliana Hogan PA-C 12/13/2020 R05 Cough Chiki Baldwin NP Plan of Treatment Future Appointment(s):* 07/02/2021 3:00 pm - EM Muñiz CASAC at [facility] * 06/25/2021 3:00 pm - EM Muñiz CASAC at [facility] * 06/18/2021 2:00 pm - EM Muñiz CASAC at [facility] * 06/18/2021 11:00 am - Narinder Lima MD at [facility] * 06/17/2021 1:40 pm - Ry Rodriguez PA-C at [facility] * 08/14/2021 1:00 pm - Narinder Lima MD at [facility] 12/10/2019 - IRIS Dooley* W19.xxxA Accidental fall* Instructions:* 1. Stay at home for 3 days for recovery. 2. Acetaminophen 325, mg. q8h. po. prn. patient has this at home 3. follow up with PCP as needed. go to ER for any vaginal leakage, bleeding. abnormal fetus activity or any worse symptoms. Patient ud erstood well. * Z34.00 Normal * S89.90xA Injury of knee Functional Status Description No Information Available Mental Status Description No Information Available Referrals Description No Information Available
--- OUTSIDE RECORDS SUMMARY | 2021-06-21 20:56 | CCD | Continuity of Care Document ---
Author [place] Resendez [facility] Organization Unknown Address [facility] [address] [place] [address] Phone [phone] Care Team Providers Care Poem Writer Name Role Phone Narinder Lima M.D. AUTM [phone] [facility] AUTM [facility] AUTM [phone] [facility] AUTM Problems Active Problems Provider Date Migraine with [...] Garret Donohue 08/09/2020 Vitamin D (Ergocalciferol) 1.25mg (02684 Ut) Capsules 1 cap by mouth every [...] CPT Code Status Date Vaccine Lot # [id number] Given 05/13/2020 Influenza (>= 6 Months) P.F. Vaccine [id number] Given 06/14/2018 Influenza (>= 6 Months) P.F. [...] H/L Range Note Covid And Flu 05/30/2021 [facility] Influenza A Amplification NEGATIVE Normal Negative 1 Influenza B Amplification NEGATIVE Normal Negative 2 RSV Amplification NEGATIVE Normal Negative 3 Sars Covid-19 Amplification NEGATIVE Normal Negative 4 Laboratory test finding 05/30/2021 [facility] [place] Level 0.34 mEq/L Low 0.60-1.20 5 Liver Profile 05/30/2021 [facility] Ast/Sgot 19 U/L Normal 7-37 Alt/SGPT 23 U/L Normal 12-78 Alkaline Phosphatase 83 U/L Normal 45-117 Bilirubin,Total 0.7 mg/dL Normal 0.2-1.0 Bilirubin,Direct 0.2 mg/dL Normal 0.0-0.2 Total Protein 8.1 GM/DL Normal 6.4-8.2 Albumin 4.4 GM/DL Normal 3.2-5.2 Albumin/Globulin Ratio 1.2 Normal 1.2-2.2 Basic Metabolic Profile 05/30/2021 [facility] Glucose, Fasting 96 mg/dL Normal 70-100 Blood [...] mg/dL High 8.5-10.1 Laboratory test finding 05/30/2021 [facility] Ethyl Alcohol (Ethanol) < 0.003 % Normal 0.000-0.010 7 Salicylate Level 5.4 mg/dL Normal 5.0-30.0 8 Acetaminophen Level < 2.0 UG/ML Low 10.0-30.0 9 Thyroid Stimulating Hormone 0.283 uIU/ML Low 0.358-3.740 10 HCG Serum Qualitative NEGATIVE Normal Negative 11 Drug Eval Toxicology ED Only 05/30/2021 [facility] Amphetamines Level Urine NEGATIVE Normal Negative Barbiturates Urine NEGATIVE Normal Negative Benzodiazepines Urine NEGATIVE Normal Negative Cannabinoids Urine POSITIVE High Negative Cocaine Metabolite Urine POSITIVE High Negative Methadone Urine NEGATIVE Normal Negative Opiates Urine NEGATIVE Normal Negative Phencyclidine Urine NEGATIVE Normal Negative 12 Complete Blood Count 05/30/2021 [facility] White Blood Count 17.0 10 High 4.0-10.0 [...] % Normal 0-0 Comprehensive Metabolic Panel 05/16/2021 [facility] Comprehensive Metabo (SEE NOTE) 13, 14 Sodium [...] GFR >60 mL/min 15 HCV Fibrosure 05/16/2021 [facility] Fibrosis Score 0.02 NA 0.00-0.21 Fibrosis Stage [...] WILL FOLLOW Herpes I&II Igm AB 05/16/2021 [facility] HSV, IgM I/II Combination <0.91 Ratio 0.00-0.90 21 Herpes Simplex Virus I/II Igg 05/16/2021 [facility] HSV 1 IgG, Type Spec <0.91 index 0.00-0.90 22 HSV 2 IgG, Type Spec 2.06 index High 0.00-0.90 23 HSV-2 IgG SupplementalTest Positive Abnormal Negative 2 4 HIV Panel 05/16/2021 [facility] HIV Screen 4thGeneration wRfx Non Reactive Non Reacti ve Laboratory test finding 05/16/2021 [facility] Syphilis NON-REACTIVE Normal:Non Reactive Hepatitis B Surf Antigen NONREACTIVE Normal:Non React stephanie Hep C Antibody With Reflex Quant PCR <0.1 s/coratio 0. 0-0.9 Laboratory test finding 05/16/2021 [facility] Ferritin Fallon 47.6 ng/mL 3.0 - 105 Iron Binding Capacity 05/16/2021 [facility] Iron 45 g/dL 42 - 135 Uibc 215 g/dL 112 - 347 Tibc 260 g/dL 250 - 450 Iron Sat 17 % Laboratory test finding 05/16/2021 [facility] Vitamin D (25-Hydroxy) 23 NG/ML 25 CBC W/Automated Diff 05/16/2021 [facility] CBC W/Automated Diff (SEE NOTE) 26 WBC [...] Lymph 24.8 % Low 25.0 - 40.0 [place] 6.6 % 3.0 - 8.0 Eos 1.4 % 0.0 - 7.0 Baso 0.2 % 0.0 - 2.5 %Ig 0.3 % High 0.0 - 0.0 %NRBC 0.0 % 0.0 - 0.0 #Neut 8.36 10^3/uL High 2.00 - 6.90 #Lymph 3.12 10^3/uL 0.60 - 3.40 #Bleckley 0.83 10^3/uL 0.00 - 0.90 #Eos 0.18 10^3/uL 0.00 - 0.70 #Baso 0.03 10^3/uL 0.00 - 0.20 #Ig 0.04 10^3/uL 0.00 - 0.10 #NRBC 0.00 10^3/uL 0.00 - 0.00 Manual Diff NOT INDICATED RBC Morph NOT INDICATED Laboratory test finding 05/16/2021 [facility] Vitamin B12 Serum 353 pg/mL 232 - 1245 Covid-19 05/12/2021 [facility] Sars-CoV-2, Bev Not Detected Not Detected 27, 28 Sars-CoV-2, Bev 2 Day Tat Performed Cuture Urine 05/07/2021 [facility] Culture Urine (SEE NOTE) 29, 30 Ua With Reflex To Ua Culture 05/07/2021 [facility] spital Ua Reflex To Ua Cult (SEE NOTE) 31 Source R Color yellow Normal: Yellow Clarity hazy Normal: Clear Spec [place] 1.020 1.001 - 1.030 pH 6 5 [...] Yeast Few Abnormal 32 Chlamydia GC/Trich 05/07/2021 [facility] Source: Genital 33 Chlamydia by Bev Negative Negative Gonococcus by Bev Negative Negative Trich vag by Bev Negative Negative Bacterial Vaginosis 05/07/2021 [facility] Source: Genital Ladi species Positive Abnormal Negative Gardnerella vaginalis Positive Abnormal Negative Trichomonas vaginalis Negative Negative Chlamydia/GC 05/07/2021 [facility] Chlam Trach QL Dna Probe <pending> GC By Dna Cervical Mucus <pending> Affirm Vaginitis Panel 05/07/2021 [facility] Z#Other Observations <pending> Covid-19 04/13/2021 [facility] Sars-CoV-2, Bev Not Detected Not Detected 34 Sars-CoV-2, Bev 2 Day Tat Performed Laboratory test finding 03/26/2021 [facility] Ferritin 73 NG/ML Normal 8-252 35 Total Iron Binding Capacit 03/26/2021 [facility] Iron (Fe) 78 g/dL Normal 50-170 Total Iron Binding Capacity 256 g/dL Normal 250-450 Percent Saturation 30.5 % Normal 13.2-45.0 Comprehensive Metabolic Profil 03/26/2021 [facility] Glucose, Fasting 109 mg/dL High 70-100 Blood [...] 1.2 Normal 1.2-2.2 CBC With Differential 03/26/2021 [facility] White Blood Count 9.9 10 Normal 4.0-10.0 [...] 36.0-66.0 Lymph % 27.1 % Normal 24.0-44.0 Ble[place] % 6.4 % Normal 2.0-8.0 Eos % 1.5 % Normal 0.0-3.0 Baso % 0.3 % Normal 0.0-1.0 Immature Granulocyte % 0.4 % Normal 0-3.0 Nucleated Red Blood Cell % 0.0 % Normal 0-0 Neutrophils # 6.4 10 Normal 1.5-8.5 Lymph # 2.7 10 Normal 1.5-5.0 [place]ley # 0.6 10 Normal 0.0-0.8 Eos # 0.2 10 Normal 0.0-0.5 Baso # 0.0 10 Normal 0.0-0.2 Covid-19 02/07/2021 [facility] Sars-CoV-2, Bev Not Detected Not Detected 37 Sars-CoV-2, Bev 2 Day Tat Performed Laboratory test finding 02/04/2021 [facility] l Ferritin Fallon 63.5 ng/mL 3.0 - 105 38 Iron Binding Capacity 02/04/2021 [facility] Iron 58 g/dL 42 - 135 Uibc 173 g/dL 112 - 347 Tibc 231 g/dL Low 250 - 450 Iron Sat 25 % CBC W/Automated Diff 02/04/2021 [facility] CBC W/Automated Diff (SEE NOTE) 39 WBC [...] 80.0 Lymph 34.6 % 25.0 - 40.0 [place] 7.5 % 3.0 - 8.0 Eos 2.8 % 0.0 - 7.0 Baso 0.4 % 0.0 - 2.5 %Ig 0.4 % High 0.0 - 0.0 %NRBC 0.0 % 0.0 - 0.0 #Neut 5.48 10^3/uL 2.00 - 6.90 #Lymph 3.49 10^3/uL High 0.60 - 3.40 #Bleckley 0.76 10^3/uL 0.00 - 0.90 #Eos 0.28 10^3/uL 0.00 - 0.70 #Baso 0.04 10^3/uL 0.00 - 0.20 #Ig 0.04 10^3/uL 0.00 - 0.10 #NRBC 0.00 10^3/uL 0.00 - 0.00 Manual Diff NOT INDICATED RBC Morph NOT INDICATED Laboratory test finding 02/04/2021 [facility] l Vitamin B12 Serum 204 pg/mL Low 232 - 1245 Vitamin D (25-Hydroxy) 19 NG/ML 40 Comprehensive Metabolic Panel 02/04[facility] Comprehensive Metabo (SEE NOTE) 41 [...] >60 mL/min 42 Laboratory test finding 01/27/2021 [facility] T4 - Free 1.27 ng/dL 0.93 - 1.70 TSH Highly Sensitive 0.34 uIU/mL Low 0.47 - 5.01 Inhouse-Influenza A&B Rna Prob 12/13/2020 In Office Influenza Virus A QL PCR negative Negative Influenza Virus B QL PCR negative Negative Laboratory test finding 12/13/2020 [facility] Coronavirus Covid-19 Not Detected Not Detected [...] pathogens. DISCLAIMER: Testing was performed using the [employer] SARS-CoV-2 test. This test was developed and its performance characteristics determined by [employer]. This test has not been FDA cleared [...] Little GFR Left ESRD GFR <15 on [employer] 7 note:<nlbl:demographic_chang ed> 8 note:<nlbl:demographic_chang ed> 9 note:<nlbl:demographic_[facility] ed> 10 note:<nlbl:demographic_[facility] ed> 11 note:<nlbl:demographic_[facility] ed> 12 ALL PRESUMPTIVE POSITIVE FINDINGS [...] developed and its performance characteristics determined by [employer]. Nucleic acid amplification tests include RT-PCR and [...] this assay. 29 .~.~R30.0 30 _CULTURE URINE_ ^$552178 ^^[id number] $$466027 ^^025632 $$853826 $$472406 $$000126 $$696646 $$826565 $$691741 $$827464 $$649541 $$504239 $$153062 $$171565 $$940548 $$412599 $$611034 $$971386 $$222282 $$671731 $$931916 $$449934 $$279904 $$502063 $$083070 $$561163 ^^272761 $$064891 $$588962 $$643257 -- Continued on next page -- Patient: POORNIMA Denney Order: [id number] Page 2 Culture: CULTURE URINE Status: Final -- Continued on next page -- Patient: POORNIMA Denney Order: [id number] Page 2 Culture: CULTURE URINE Status: Prelim -- Continued on next page -- Patient: POORNIMA Denney Order: [id number] Page 2 Culture: CULTURE URINE Status: Prelim $$[id number] $$[id number] REPORTED DATE/TIME: 05/14/2021 12:06 Culture: CULTURE URINE [...] coli Flag: A Patient: POORNIMA Denney Order: [id number] Page 3 Culture: CULTURE URINE Status: Final [...] S S . . . . . .36296-7 Gentamicin S S . . . . . .267-5 Imipenem S S . . . . . .279-0 Levofloxacin S S . . . . . .87405-0 Meropenem S S . . . . . .6652-2 Nitrofurantoin S S . . . . . .363-2 Piperacillin/Tazobactam S S . . . . . .412-7 Tetracycline S S . . . . . .496-0 Tobramycin S S . . . . . .508-2 Trimethoprim/Sulfa S S . . . . . .516-5 P1 [facility] #: [id number] [address] [place] [address] Avenue [id number] [facility] [id number] Access Services Assistant : Armando Lang MD NPI #: Balloon Sander : 05/12/[email or web address].XMT.SENT REF 05/13/21.1623.XMT.SENT REF 05/14/21.1406.XMT.SENT REF 31 URINALYSIS 32 HYPAE YEAST 33 {SOURCE: Genital 34 This nucleic acid amplificat ion test was developed and its performance characteristics determined by [employer]. Nucleic acid amplification tests include RT-PCR and [...] (not detected) result in this assay. 35 note:<nlbl:[facility]_chang ed> 36 Units are mL/min/1.73 m2 Chronic Kidney Disease Staging per NKF: Stage I & II GFR >=60 Normal to Mildly Decreased Stage III GFR 30-59 Moderately Decreased Stage IV GFR 15-29 Severely Decreased Stage V GFR <15 Very Little GFR Left ESRD GFR <15 on [employer] 37 This nucleic acid amplificat ion test was developed and its performance characteristics determined by [employer]. Nucleic acid amplification tests include RT-PCR and [...] developed and its performance characteristics determined by [employer]. Nucleic acid amplification tests include RT-PCR and [...] assay. Procedures Date Code Description Status 05/07/2021 99981 Office/Outpatient Established Lo w MDM 20-29 Min Completed 05/07/2021 17964 Office/Outpatient New Low MDM 30 -44 Minutes Completed 05/07/2021 57093 Admin Patient Focused Health Ris k Assessment Instrument Completed 05/07/2021 45806 Brief Emotional/Beha v Assessment W/ Scoring Doc Per Standard Inst Completed 04/30/2021 60710 Office/Outpatient Established Mo d MDM 30-39 Min Completed 04/18/2021 87827 Office Visit New Level 1 Complet ed 04/13/2021 67984 Office/Outpatient Established Lo w MDM 20-29 Min Completed 04/13/2021 24105 Pulse Oximetry Single Determinat ion Completed 02/04/2021 75652 Office/Outpatient Established Lo w MDM 20-29 Min Completed 01/27/2021 87348 Office/Outpatient Established Mo d MDM 30-39 Min Completed 12/24/2020 33952 Office/Outpatient Established Lo w MDM 20-29 Min Completed 12/21/2020 82145 Office/Outpatient Established Lo w MDM 20-29 Min Completed 12/13/2020 39439 Office/Outpatient Established Lo w MDM 20-29 Min [...] Candidiasis of vulva and vagina Alma Kristyn, [employer] 05/07/2021 Z11.3 Encounter for screen ing for infections with a predominantly sexual mode of transmission Alma O'joshua, MACHINE TO[employer] RE[employer]DER 05/07/2021 G43.009 Migraine without aur a, not [...] CASAC 12/24/2020 M62.830 Muscle spasm of back Yoni Medel, NEETA 12/21/2020 G43.009 Migraine without aur a, not intractable, without status migrainosus Juliana Hogan PA-C 12/13/2020 R05 Cough Chiki Baldwin NP Plan of Treatment Future Appointment(s):* 07/02/2021 3:00 pm - EM Muñiz CASAC at [facility] * 06/25/2021 3:00 pm - EM Muñiz CASAC at [facility] * 06/18/2021 2:00 pm - EM Muñiz CASAC at [facility] * 06/18/2021 11:00 am - Narinder Lima MD at [facility] * 06/17/2021 1:40 pm - Ry Rodriguez PA-C at [facility] * 08/14/2021 1:00 pm - Narinder Lima MD at [facility] 12/10/2019 - IRIS Dooley* W19.xxxA Accidental fall* [...]
--- OUTSIDE RECORDS SUMMARY | 2021-06-21 20:56 | CCD | Continuity of Care Document ---
Author Author Houston LIMA M.D. Organization Unknown Address [address] [place] [id number] Phone [phone] Care Team Providers Care Cloth Worker Name Role Phone Narinder Lima M.D. AUTM [phone] [facility] [address] [facility] AUTM [facility] AUTM [phone] [facility] AUTM Problems Active [...] and 7 #3 3tabs Ezequiel Capone 05/19/2021 Emgality 120mg/ml Solution Auto-In ject give one [...] Garret Donohue 08/09/2020 Vitamin D (Ergocalciferol) 1.25mg (07637 Ut) Capsules 1 cap by mouth every two weeks 6caps E55.9 Narinder Lima MD 05/13/2020 Montelukast Sodium 10mg Tablets 1 by mouth every day 90tabs J30.9 Narinder Lima MD 05/13/2020 History Medications Cipro 250mg Tablets 1 tab by mouth twice a day 6tabs Narinder Lima MD 05/08/2021 - 06/18/2021 Rizatriptan Benzoate 10mg Tablets Dispers Dissolve 1 [...] CPT Code Status Date Vaccine Lot # [id number] Given 05/13/2020 Influenza (>= 6 Months) P.F. Vaccine [id number] Given 06/14/2018 Influenza (>= 6 Months) P.F. Vaccine [id number] Vital Signs Date Vital Result Comment 06/18/2021 11:09am BP Systolic 110 mmHg BP Diastolic 72 mmHg Heart Rate 70 /min Body Temperature 97.1 F Respiratory Rate 18 /min O2 % BldC Oximetry 99 % Weight 139.00 lb Weight 63.050 kg Height 64 inches 5'4" BMI (Body Mass Index) 23.9 kg/m2 BSA (Body Surface Area) 1.68 m2 05/07/2021 1:52pm BP Systolic 128 mmHg BP Diastolic 82 mmHg Respiratory Rate 16 /min Results Test Acquired Date Facility Test Result H/L Range Note Covid And Flu 05/30/2021 [facility] Influenza A Amplification NEGATIVE Normal Negative 1 Influenza B Amplification NEGATIVE Normal Negative 2 RSV Amplification NEGATIVE Normal Negative 3 Sars Covid-19 Amplification NEGATIVE Normal Negative 4 Laboratory test finding 05/30/2021 [facility] Merritt Level 0.34 mEq/L Low 0.60-1.20 5 Liver Profile 05/30/2021 [facility] Ast/Sgot 19 U/L Normal 7-37 Alt/SGPT 23 U/L Normal 12-78 Alkaline Phosphatase 83 U/L Normal 45-117 Bilirubin,Total 0.7 mg/dL Normal 0.2-1.0 Bilirubin,Direct 0.2 mg/dL Normal 0.0-0.2 Total Protein 8.1 GM/DL Normal 6.4-8.2 Albumin 4.4 GM/DL Normal 3.2-5.2 Albumin/Globulin Ratio 1.2 Normal 1.2-2.2 Basic Metabolic Profile 05/30/2021 [facility] Glucose, Fasting 96 mg/dL Normal 70-100 [...] mg/dL High 8.5-10.1 Laboratory test finding 05/30/2021 [facility] Ethyl Alcohol (Ethanol) < 0.003 % Normal 0.000-0.010 7 Salicylate Level 5.4 mg/dL Normal 5.0-30.0 8 Acetaminophen Level < 2.0 UG/ML Low 10.0-30.0 9 Thyroid Stimulating Hormone 0.283 uIU/ML Low 0.358-3.740 10 HCG Serum Qualitative NEGATIVE Normal Negative 11 Drug Eval Toxicology ED Only 05/30/2021 [facility] Amphetamines Level Urine NEGATIVE Normal Negative Barbiturates Urine NEGATIVE Normal Negative Benzodiazepines Urine NEGATIVE Normal Negative Cannabinoids Urine POSITIVE High Negative Cocaine Metabolite Urine POSITIVE High Negative Methadone Urine NEGATIVE Normal Negative Opiates Urine NEGATIVE Normal Negative Phencyclidine Urine NEGATIVE Normal Negative 12 Complete Blood Count 05/30/2021 [facility] White Blood Count 17.0 10 High [...] % Normal 0-0 Comprehensive Metabolic Panel 05/16/2021 [facility] Comprehensive Metabo (SEE NOTE) 13, 14 [...] GFR >60 mL/min 15 HCV Fibrosure 05/16/2021 [facility] Fibrosis Score 0.02 NA 0.00-0.21 Fibrosis [...] WILL FOLLOW Herpes I&II Igm AB 05/16/2021 [facility] HSV, IgM I/II Combination <0.91 Ratio 0.00-0.90 21 Herpes Simplex Virus I/II Igg 05/16/2021 [facility] HSV 1 IgG, Type Spec <0.91 index 0.00-0.90 22 HSV 2 IgG, Type Spec 2.06 index High 0.00-0.90 23 HSV-2 IgG SupplementalTest Positive Abnormal Negative 2 4 HIV Panel 05/16/2021 [facility] HIV Screen 4thGeneration wRfx Non Reactive Non Reacti ve Laboratory test finding 05/16/2021 [facility] Syphilis NON-REACTIVE Normal:Non Reactive Hepatitis B Surf Antigen NONREACTIVE Normal:Non React stephanie Hep C Antibody With Reflex Quant PCR <0.1 s/coratio 0. 0-0.9 Laboratory test finding 05/16/2021 [facility] Ferritin Fallon 47.6 ng/mL 3.0 - 105 Iron Binding Capacity 05/16/2021 [facility] Iron 45 g/dL 42 - 135 Uibc 215 g/dL 112 - 347 Tibc 260 g/dL 250 - 450 Iron Sat 17 % Laboratory test finding 05/16/2021 [facility] Vitamin D (25-Hydroxy) 23 NG/ML 25 CBC W/Automated Diff 05/16/2021 [facility] CBC W/Automated Diff (SEE NOTE) 26 [...] Lymph 24.8 % Low 25.0 - 40.0 Gregg 6.6 % 3.0 - 8.0 Eos 1.4 % 0.0 - 7.0 Baso 0.2 % 0.0 - 2.5 %Ig 0.3 % High 0.0 - 0.0 %NRBC 0.0 % 0.0 - 0.0 #Neut 8.36 10^3/uL High 2.00 - 6.90 #Lymph 3.12 10^3/uL 0.60 - 3.40 #Gregg 0.83 10^3/uL 0.00 - 0.90 #Eos 0.18 10^3/uL 0.00 - 0.70 #Baso 0.03 10^3/uL 0.00 - 0.20 #Ig 0.04 10^3/uL 0.00 - 0.10 #NRBC 0.00 10^3/uL 0.00 - 0.00 Manual Diff NOT INDICATED RBC Morph NOT INDICATED Laboratory test finding 05/16/2021 [facility] l Vitamin B12 Serum 353 pg/mL 232 - 1245 Covid-19 05/12/2021 [facility] Sars-CoV-2, Bev Not Detected Not Detected 27, 28 Sars-CoV-2, Bev 2 Day Tat Performed Chlamydia/GC 05/07/2021 [facility] Chlam Trach QL Dna Probe <pending> GC By Dna Cervical Mucus <pending> Cuture Urine 05/07/2021 [facility] Culture Urine (SEE NOTE) 29, 30 Ua With Reflex To Ua Culture 05/07/2021 [facility] spital Ua Reflex To Ua Cult (SEE NOTE) 31 Source R Color yellow Normal: Yellow Clarity hazy Normal: Clear Spec [place] 1.020 1.001 - 1.030 pH 6 5 [...] Yeast Few Abnormal 32 Chlamydia GC/Trich 05/07/2021 [facility] Source: Genital 33 Chlamydia by Bev Negative Negative Gonococcus by Bev Negative Negative Trich vag by Bev Negative Negative Bacterial Vaginosis 05/07/2021 [facility] Source: Genital Ladi species Positive Abnormal Negative Gardnerella vaginalis Positive Abnormal Negative Trichomonas vaginalis Negative Negative Affirm Vaginitis Panel 05/07/2021 [facility] Z#Other Observations <pending> Covid-19 04/13/2021 [facility] Sars-CoV-2, Bev Not Detected Not Detected 34 Sars-CoV-2, Bev 2 Day Tat Performed Total Iron Binding Capacit 03/26/2021 [facility] Iron (Fe) 78 g/dL Normal 50-170 Total Iron Binding Capacity 256 g/dL Normal 250-450 Percent Saturation 30.5 % Normal 13.2-45.0 Laboratory test finding 03/26/2021 [facility] Ferritin 73 NG/ML Normal 8-252 35 Comprehensive Metabolic Profil 03/26/2021 [facility] Glucose, Fasting 109 mg/dL High 70-100 [...] 1.2 Normal 1.2-2.2 CBC With Differential 03/26/2021 [facility] White Blood Count 9.9 10 Normal [...] 36.0-66.0 Lymph % 27.1 % Normal 24.0-44.0 Gregg % 6.4 % Normal 2.0-8.0 Eos % 1.5 % Normal 0.0-3.0 Baso % 0.3 % Normal 0.0-1.0 Immature Granulocyte % 0.4 % Normal 0-3.0 Nucleated Red Blood Cell % 0.0 % Normal 0-0 Neutrophils # 6.4 10 Normal 1.5-8.5 Lymph # 2.7 10 Normal 1.5-5.0 Gregg # 0.6 10 Normal 0.0-0.8 Eos # 0.2 10 Normal 0.0-0.5 Baso # 0.0 10 Normal 0.0-0.2 Covid-19 02/07/2021 [facility] Sars-CoV-2, Bev Not Detected Not Detected 37 Sars-CoV-2, Bev 2 Day Tat Performed Laboratory test finding 02/04/2021 [facility] l Ferritin Fallon 63.5 ng/mL 3.0 - 105 38 Iron Binding Capacity 02/04/2021 [facility] Iron 58 g/dL 42 - 135 Uibc 173 g/dL 112 - 347 Tibc 231 g/dL Low 250 - 450 Iron Sat 25 % CBC W/Automated Diff 02/04/2021 [facility] CBC W/Automated Diff (SEE NOTE) 39 [...] 80.0 Lymph 34.6 % 25.0 - 40.0 Gregg 7.5 % 3.0 - 8.0 Eos 2.8 % 0.0 - 7.0 Baso 0.4 % 0.0 - 2.5 %Ig 0.4 % High 0.0 - 0.0 %NRBC 0.0 % 0.0 - 0.0 #Neut 5.48 10^3/uL 2.00 - 6.90 #Lymph 3.49 10^3/uL High 0.60 - 3.40 #Gregg 0.76 10^3/uL 0.00 - 0.90 #Eos 0.28 10^3/uL 0.00 - 0.70 #Baso 0.04 10^3/uL 0.00 - 0.20 #Ig 0.04 10^3/uL 0.00 - 0.10 #NRBC 0.00 10^3/uL 0.00 - 0.00 Manual Diff NOT INDICATED RBC Morph NOT INDICATED Laboratory test finding 02/04/2021 [facility] l Vitamin B12 Serum 204 pg/mL Low 232 - 1245 Vitamin D (25-Hydroxy) 19 NG/ML 40 Comprehensive Metabolic Panel 02/04/2021 [facility] Comprehensive Metabo (SEE NOTE) 41 [...] >60 mL/min 42 Laboratory test finding 01/27/2021 [facility] T4 - Free 1.27 ng/dL 0.93 - 1.70 TSH Highly Sensitive 0.34 uIU/mL Low 0.47 - 5.01 1 Negative results do not prec lude [...] pathogens. DISCLAIMER: Testing was performed using the [employer] SARS-CoV-2 test. This test was developed and its performance characteristics determined by [employer]. This test has not been FDA cleared [...] Little GFR Left ESRD GFR <15 on [facility] [employer] 7 note:<nlbl:demographic_[facility] ed> 8 note:<nlbl:demographic_[facility] ed> 9 note:<nlbl:demographic_[facility] ed> 10 note:<nlbl:demographic_ ed> 11 note:<nlbl:demographic_[facility] ed> 12 ALL PRESUMPTIVE POSITIVE FINDINGS [...] developed and its performance characteristics determined by [employer]. Nucleic acid amplification tests include RT-PCR and [...] this assay. 29 .~.~R30.0 30 _CULTURE URINE_ ^$[id number] ^^887486 $$725874 ^^072568 $$986049 $$540183 $$724719 $$471528 $$054888 $$699682 $$355102 $$110141 $$491206 $$489059 $$154593 $$798655 $$975156 $$140679 $$909972 $$284490 $$344499 $$591604 $$127647 $$066137 $$561782 $$258356 $$280125 ^^578138 $$934481 $$559434 $$590079 -- Continued on next page -- Patient: POORNIMA Denney Order: [id number] Page 2 Culture: CULTURE URINE Status: Final -- Continued on next page -- Patient: POORNIMA Denney Order: Page 2 Culture: CULTURE URINE Status: Prelim -- Continued on next page -- Patient: POORNIMA Denney Order: Page 2 Culture: CULTURE URINE Status: Prelim $$[id number] $$[id number] REPORTED DATE/TIME: 05/14/2021 12:06 Culture: CULTURE URINE [...] coli Flag: A Patient: POORNIMA Denney Order: [id number] Page 3 Culture: CULTURE URINE Status: Final [...] S S . . . . . .95520-7 Gentamicin S S . . . . . .267-5 Imipenem S S . . . . . .279-0 Levofloxacin S S . . . . . .95333-1 Meropenem S S . . . . . .6652-2 Nitrofurantoin S S . . . . . .363-2 Piperacillin/Tazobactam S S . . . . . .412-7 Tetracycline S S . . . . . .496-0 Tobramycin S S . . . . . .508-2 Trimethoprim/Sulfa S S . . . . . .516-5 P1 Test performed by: [facility] #: [id number] [address] [id number] [facility] [address] Sales Associate Fishing : Armando Lang MD NPI #: Applications Consultant : 05/12/[email or web address].SENT REF 05/13/21.1623.XMT.SENT REF 05/14/21.1406.XMT.SENT REF 31 URINALYSIS 32 HYPAE YEAST 33 {SOURCE: Genital 34 This nucleic acid amplificat ion test was developed and its performance characteristics determined by [employer]. Nucleic acid amplification tests include RT-PCR and [...] (not detected) result in this assay. 35 note:<nlbl:demographic_chang ed> 36 Units are mL/min/1.73 m2 Chronic Kidney Disease Staging per NKF: Stage I & II GFR >=60 Normal to Mildly Decreased Stage III GFR 30-59 Moderately Decreased Stage IV GFR 15-29 Severely Decreased Stage V GFR <15 Very Little GFR Left ESRD GFR <15 on [employer] [employer] 37 This nucleic acid amplificat ion test was developed and its performance characteristics determined by [employer]. Nucleic acid amplification tests include RT-PCR and [...] Normal 80 and above >32 mL/min Normal Procedures Date Code Description Status 05/07/2021 17844 Office/Outpatient Established Lo w MDM 20-29 Min Completed 05/07/2021 51996 Office/Outpatient New Low MDM 30 -44 Minutes Completed 05/07/2021 35916 Admin Patient Focused Health Ris k Assessment Instrument Completed 05/07/2021 48573 Brief Emotional/Beha v Assessment W/ Scoring Doc Per Standard Inst Completed 04/30/2021 81499 Office/Outpatient Established Mo d MDM 30-39 Min Completed 04/18/2021 18975 Office Visit New Level 1 Complet ed 04/13/2021 20278 Office/Outpatient Established Lo w MDM 20-29 Min Completed 04/13/2021 33327 Pulse Oximetry Single Determinat ion Completed 02/04/2021 09882 Office/Outpatient Established Lo w MDM 20-29 Min Completed 01/27/2021 55896 Office/Outpatient Established Mo d MDM 30-39 Min Completed 12/24/2020 37420 Office/Outpatient Established Lo w MDM 20-29 Min Completed 12/21/2020 63521 Office/Outpatient Established Lo w MDM 20-29 Min Completed Medical Devices Description No Information Available Encounters Description No Information Available Assessments Date Code Description Provider 06/11/2021 F31.60 Bipolar disorder, current episod e mixed, unspecified Amara Velazquez LM, CASAC 06/11/2021 F12.20 Cannabis dependence, uncomplicat ed Amara Velazquez LM, CASAC 06/03/2021 F31.60 Bipolar disorder, current episod e mixed, unspecified Amara Velazquez [facility], [facility] 06/03/2021 F12.20 Cannabis dependence, uncomplicat ed Amara Velazquez [facility], [facility] 05/28/2021 F31.60 Bipolar disorder, current episod e mixed, unspecified Amara Velazquez [facility], [facility] 05/28/2021 F12.20 Cannabis dependence, uncomplicat ed Amara Velazquez [facility], [facility] 05/14/2021 F31.60 Bipolar disorder, current episod e mixed, unspecified Amara Velazquez [facility], [facility] 05/14/2021 F12.20 Cannabis dependence, uncomplicat ed Amara Velazquez [facility], [facility] 05/07/2021 B37.3 Candidiasis of vulva and vagina Alma Simons, SENIOR ANALYST [employer] 05/07/2021 Z11.3 Encounter for screen ing for infections with a predominantly sexual mode of transmission Alma Simons, NEETA 05/07/2021 G43.009 Migraine without aur a, not intractable, without status migrainosus Narinder Lima MD 05/07/2021 E55.9 Vitamin D deficiency, unspecifie d Narinder Lima MD 05/07/2021 D51.9 Vitamin B12 deficiency anemia, u nspecified Narinder Lima MD 04/30/2021 F31.60 Bipolar disorder, current episod e mixed, unspecified Ry Rodriguez PA-C 04/30/2021 F12.20 Cannabis dependence, uncomplicat ed Ry Rodriguez PA-C 04/30/2021 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, in remission Santiago Rodriguez PA-C 04/18/2021 J06.9 Acute upper respiratory infectio n, unspecified Antwan Ragland PA-C 04/13/2021 A09 Infectious gastroenteritis and c olitis, unspecified Emmie Baker PA-C 04/11/2021 F31.60 Bipolar disorder, current episod e mixed, unspecified Amara Marcus [facility], [facility] 04/11/2021 F12.20 Cannabis dependence, uncomplicat ed Amara Velazquez LM, CASAC 04/11/2021 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, in remission Alec Velazquez [facility], [facility] 03/12/2021 F31.60 Bipolar disorder, current episod e mixed, unspecified Amara Velazquez [facility], [facility] 03/12/2021 F12.20 Cannabis dependence, uncomplicat ed Amara Velazquez [facility], [facility] 03/12/2021 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, in remission Alec Velazquez [facility], [facility] 02/05/2021 F31.60 Bipolar disorder, current episod e mixed, unspecified Amara Velazquez [facility], [facility] 02/05/2021 F12.20 Cannabis dependence, uncomplicat ed Amara Velazquez [facility], [facility] 02/05/2021 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, in remission Alec Velazquez [facility], [facility] 02/04/2021 G43.009 Migraine without aur a, not intractable, without status migrainosus Narinder Lima MD 02/04/2021 E55.9 Vitamin D deficiency, unspecifie d Narinder Lima MD 02/04/2021 J30.9 Allergic rhinitis, unspecified H jes Lima MD 02/04/2021 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 Narinder Lima MD 02/04/2021 E61.1 Iron deficiency Narinder Lima MD 01/27/2021 F31.60 Bipolar disorder, current episod e mixed, unspecified Ry Rodriguez PA-C 01/27/2021 F12.20 Cannabis dependence, uncomplicat ed Ry Rodriguez PA-C 01/27/2021 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, in remission Santiago Rodriguez PA-C 01/01/2021 F31.60 Bipolar disorder, current episod e mixed, unspecified Amara Velazquez [facility], [facility] 01/01/2021 F12.20 Cannabis dependence, uncomplicat ed Amara Velazquez [facility], [facility] 01/01/2021 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, in remission Alec Velazquez [facility], [facility] 12/24/2020 M62.830 Muscle spasm of back Yoni Medel, SENIOR ANALYST [employer] 12/21/2020 G43.009 Migraine without aur a, not intractable, without status migrainosus Juliana Hogan PA-C Plan of Treatment Future Appointment(s):* 12/17/2021 7:20 am - Narinder Lima MD at [facility] * 07/02/2021 3:00 pm - EM Muñiz, DIANDRA at [facility] * 06/25/2021 3:00 pm - EM Muñiz, DIANDRA at [facility] Functional Status Description No Information Available Mental Status Description No Information Available Referrals Description No Information Available
--- OUTSIDE RECORDS SUMMARY | 2021-06-21 20:56 | CCD | Continuity of Care Document ---
Author Houston Resendez [facility] Organization Unknown Address [facility] [address] [place] [address] Phone [phone] Care Team Providers Care Spray Ii Painter Name Role Phone Narinder Lima M.D. AUTM [phone] [facility]M [facility] AUTM [facility] AUTM [phone] Problems Active Problems Provider Date Migraine with [...] Garret Donohue 08/09/2020 Vitamin D (Ergocalciferol) 1.25mg (08771 Ut) Capsules 1 cap by mouth every [...] CPT Code Status Date Vaccine Lot # [id number] Given 05/13/2020 Influenza (>= 6 Months) P.F. Vaccine [id number] Given 06/14/2018 Influenza (>= 6 Months) P.F. [...] H/L Range Note Covid And Flu 05/30/2021 [facility] Influenza A Amplification NEGATIVE Normal Negative 1 Influenza B Amplification NEGATIVE Normal Negative 2 RSV Amplification NEGATIVE Normal Negative 3 Sars Covid-19 Amplification NEGATIVE Normal Negative 4 Laboratory test finding 05/30/2021 [facility] [place] Level 0.34 mEq/L Low 0.60-1.20 5 Liver Profile 05/30/2021 [facility] Ast/Sgot 19 U/L Normal 7-37 Alt/SGPT 23 U/L Normal 12-78 Alkaline Phosphatase 83 U/L Normal 45-117 Bilirubin,Total 0.7 mg/dL Normal 0.2-1.0 Bilirubin,Direct 0.2 mg/dL Normal 0.0-0.2 Total Protein 8.1 GM/DL Normal 6.4-8.2 Albumin 4.4 GM/DL Normal 3.2-5.2 Albumin/Globulin Ratio 1.2 Normal 1.2-2.2 Basic Metabolic Profile 05/30/2021 [facility] Glucose, Fasting 96 mg/dL Normal 70-100 [...] mg/dL High 8.5-10.1 Laboratory test finding 05/30/2021 [facility] Ethyl Alcohol (Ethanol) < 0.003 % Normal 0.000-0.010 7 Salicylate Level 5.4 mg/dL Normal 5.0-30.0 8 Acetaminophen Level < 2.0 UG/ML Low 10.0-30.0 9 Thyroid Stimulating Hormone 0.283 uIU/ML Low 0.358-3.740 10 HCG Serum Qualitative NEGATIVE Normal Negative 11 Drug Eval Toxicology ED Only 05/30/2021 [facility] Ronald Amphetamines Level Urine NEGATIVE Normal Negative Barbiturates Urine NEGATIVE Normal Negative Benzodiazepines Urine NEGATIVE Normal Negative Cannabinoids Urine POSITIVE High Negative Cocaine Metabolite Urine POSITIVE High Negative Methadone Urine NEGATIVE Normal Negative Opiates Urine NEGATIVE Normal Negative Phencyclidine Urine NEGATIVE Normal Negative 12 Complete Blood Count 05/30/2021 [facility] White Blood Count 17.0 10 High [...] % Normal 0-0 Comprehensive Metabolic Panel 05/16/2021 [facility] Comprehensive Metabo (SEE NOTE) 13, 14 [...] GFR >60 mL/min 15 HCV Fibrosure 05/16/2021 [facility] Fibrosis Score 0.02 NA 0.00-0.21 [...] WILL FOLLOW Herpes I&II Igm AB 05/16/2021 [facility] HSV, IgM I/II Combination <0.91 Ratio 0.00-0.90 21 Herpes Simplex Virus I/II Igg 05/16/2021 [facility] HSV 1 IgG, Type Spec <0.91 index 0.00-0.90 22 HSV 2 IgG, Type Spec 2.06 index High 0.00-0.90 23 HSV-2 IgG SupplementalTest Positive Abnormal Negative 2 4 HIV Panel 05/16/2021 [facility] HIV Screen 4thGeneration wRfx Non Reactive Non Reacti ve Laboratory test finding 05/16/2021 [facility] Syphilis NON-REACTIVE Normal:Non Reactive Hepatitis B Surf Antigen NONREACTIVE Normal:Non React stephanie Hep C Antibody With Reflex Quant PCR <0.1 s/coratio 0. 0-0.9 Laboratory test finding 05/16/2021 [facility] Ferritin Fallon 47.6 ng/mL 3.0 - 105 Iron Binding Capacity 05/16/2021 [facility] Iron 45 g/dL 42 - 135 Uibc 215 g/dL 112 - 347 Tibc 260 g/dL 250 - 450 Iron Sat 17 % Laboratory test finding 05/16/2021 [facility] Vitamin D (25-Hydroxy) 23 NG/ML 25 CBC W/Automated Diff 05/16/2021 [facility] CBC W/Automated Diff (SEE NOTE) [...] Lymph 24.8 % Low 25.0 - 40.0 [place] 6.6 % 3.0 - 8.0 Eos 1.4 % 0.0 - 7.0 Baso 0.2 % 0.0 - 2.5 %Ig 0.3 % High 0.0 - 0.0 %NRBC 0.0 % 0.0 - 0.0 #Neut 8.36 10^3/uL High 2.00 - 6.90 #Lymph 3.12 10^3/uL 0.60 - 3.40 #[place] 0.83 10^3/uL 0.00 - 0.90 #Eos 0.18 10^3/uL 0.00 - 0.70 #Baso 0.03 10^3/uL 0.00 - 0.20 #Ig 0.04 10^3/uL 0.00 - 0.10 #NRBC 0.00 10^3/uL 0.00 - 0.00 Manual Diff NOT INDICATED RBC Morph NOT INDICATED Laboratory test finding 05/16/2021 [facility] Vitamin B12 Serum 353 pg/mL 232 - 1245 Covid-19 05/12/2021 [facility] Sars-CoV-2, Bev Not Detected Not Detected 27, 28 Sars-CoV-2, Bev 2 Day Tat Performed Cuture Urine 05/07/2021 [facility] Culture Urine (SEE NOTE) 29, 30 Ua With Reflex To Ua Culture 05/07/2021 [facility] Ua Reflex To Ua Cult (SEE NOTE) 31 Source R Color yellow Normal: Yellow Clarity hazy Normal: Clear Spec [place] 1.020 1.001 - 1.030 pH 6 5 [...] Yeast Few Abnormal 32 Chlamydia GC/Trich 05/07/2021 [facility] Source: Genital 33 Chlamydia by Bev Negative Negative Gonococcus by Bev Negative Negative Trich vag by Bev Negative Negative Bacterial Vaginosis 05/07/2021 [facility] Source: Genital Ladi species Positive Abnormal Negative Gardnerella vaginalis Positive Abnormal Negative Trichomonas vaginalis Negative Negative Chlamydia/GC 05/07/2021 [facility] Chlam Trach QL Dna Probe <pending> GC By Dna Cervical Mucus <pending> Affirm Vaginitis Panel 05/07/2021 [facility] Z#Other Observations <pending> Covid-19 04/13/2021 [facility] Sars-CoV-2, Bev Not Detected Not Detected 34 Sars-CoV-2, Bev 2 Day Tat Performed Laboratory test finding 03/26/2021 [facility] Ferritin 73 NG/ML Normal 8-252 35 Total Iron Binding Capacit 03/26/2021 [facility] Iron (Fe) 78 g/dL Normal 50-170 Total Iron Binding Capacity 256 g/dL Normal 250-450 Percent Saturation 30.5 % Normal 13.2-45.0 Comprehensive Metabolic Profil 03/26/2021 [facility] Glucose, Fasting 109 mg/dL High 70-100 [...] 1.2 Normal 1.2-2.2 CBC With Differential 03/26/2021 [facility] White Blood Count 9.9 10 Normal [...] 36.0-66.0 Lymph % 27.1 % Normal 24.0-44.0 [place] % 6.4 % Normal 2.0-8.0 Eos % 1.5 % Normal 0.0-3.0 Baso % 0.3 % Normal 0.0-1.0 Immature Granulocyte % 0.4 % Normal 0-3.0 Nucleated Red Blood Cell % 0.0 % Normal 0-0 Neutrophils # 6.4 10 Normal 1.5-8.5 Lymph # 2.7 10 Normal 1.5-5.0 [place] # 0.6 10 Normal 0.0-0.8 Eos # 0.2 10 Normal 0.0-0.5 Baso # 0.0 10 Normal 0.0-0.2 Covid-19 02/07/2021 [facility] Sars-CoV-2, Bev Not Detected Not Detected 37 Sars-CoV-2, Bev 2 Day Tat Performed Laboratory test finding 02/04/2021 [facility] l Ferritin Fallon 63.5 ng/mL 3.0 - 105 38 Iron Binding Capacity 02/04/2021 [facility] Iron 58 g/dL 42 - 135 Uibc 173 g/dL 112 - 347 Tibc 231 g/dL Low 250 - 450 Iron Sat 25 % CBC W/Automated Diff 02/04/2021 [facility] CBC W/Automated Diff (SEE NOTE) [...] 80.0 Lymph 34.6 % 25.0 - 40.0 [place] 7.5 % 3.0 - 8.0 Eos 2.8 % 0.0 - 7.0 Baso 0.4 % 0.0 - 2.5 %Ig 0.4 % High 0.0 - 0.0 %NRBC 0.0 % 0.0 - 0.0 #Neut 5.48 10^3/uL 2.00 - 6.90 #Lymph 3.49 10^3/uL High 0.60 - 3.40 #[place] 0.76 10^3/uL 0.00 - 0.90 #Eos 0.28 10^3/uL 0.00 - 0.70 #Baso 0.04 10^3/uL 0.00 - 0.20 #Ig 0.04 10^3/uL 0.00 - 0.10 #NRBC 0.00 10^3/uL 0.00 - 0.00 Manual Diff NOT INDICATED RBC Morph NOT INDICATED Laboratory test finding 02/04/2021 [facility] l Vitamin B12 Serum 204 pg/mL Low 232 - 1245 Vitamin D (25-Hydroxy) 19 NG/ML 40 Comprehensive Metabolic Panel 02/04/2021 [facility] Comprehensive Metabo (SEE NOTE) 41 [...] >60 mL/min 42 Laboratory test finding 01/27/2021 [facility] T4 - Free 1.27 ng/dL 0.93 - 1.70 TSH Highly Sensitive 0.34 uIU/mL Low 0.47 - 5.01 Inhouse-Influenza A&B Rna Prob 12/13/2020 In Office Influenza Virus A QL PCR negative Negative Influenza Virus B QL PCR negative Negative Laboratory test finding 12/13/2020 [facility] Coronavirus Covid-19 Not Detected Not Detected [...] pathogens. DISCLAIMER: Testing was performed using the [employer] SARS-CoV-2 test. This test was developed and its performance characteristics determined by [employer]. This test has not been FDA cleared [...] Little GFR Left ESRD GFR <15 on [facility] 7 note:<nlbl:demographic_chang ed> 8 note:<nlbl:demographic_chang ed> 9 note:<nlbl:demographic_[facility]> 10 note:<nlbl:demographic[facility]> 11 note:<nlbl:demographic_[facility]> 12 ALL PRESUMPTIVE POSITIVE FINDINGS ARE [...] developed and its performance characteristics determined by [employer]. Nucleic acid amplification tests include RT-PCR and [...] this assay. 29 .~.~R30.0 30 _CULTURE URINE_ ^$233372 ^^[id number] $$536101 ^^831865 $$099051 $$035135 $$748560 $$259924 $$308180 $$056957 $$595086 $$081967 $$618417 $$574599 $$425912 $$869101 $$050040 $$070464 $$307003 $$416087 $$668239 $$772875 $$393199 $$989821 $$108568 $$282183 $$875650 ^^070717 $$679699 $$350043 $$816012 -- Continued on next page -- Patient: POORNIMA Denney Order: [id number] Page 2 Culture: CULTURE URINE Status: Final -- Continued on next page -- Patient: POORNIMA Denney Order: [id number] Page 2 Culture: CULTURE URINE Status: Prelim -- Continued on next page -- Patient: POORNIMA Denney Order: [id number] Page 2 Culture: CULTURE URINE Status: Prelim $$[id number] $$[id number] REPORTED DATE/TIME: 05/14/2021 12:06 Culture: CULTURE URINE [...] coli Flag: A Patient: POORNIMA Denney Order: [id number] Page 3 Culture: CULTURE URINE Status: Final [...] S S . . . . . .64001-9 Gentamicin S S . . . . . .267-5 Imipenem S S . . . . . .279-0 Levofloxacin S S . . . . . .51938-4 Meropenem S S . . . . . .6652-2 Nitrofurantoin S S . . . . . .363-2 Piperacillin/Tazobactam S S . . . . . .412-7 Tetracycline S S . . . . . .496-0 Tobramycin S S . . . . . .508-2 Trimethoprim/Sulfa S S . . . . . .516-5 P1 [facility]: [facility] #: [id number] [address] [place] [address] Avenue [id number] [facility] [address] Commercial Manager : Armando Lang MD NPI #: Bun Panner : 05/12/[email or web address].XMT.SENT REF 05/13/21.1623.XMT.SENT REF 05/14/21.1406.XMT.SENT REF 31 URINALYSIS 32 HYPAE YEAST 33 {SOURCE: Genital 34 This nucleic acid amplificat ion test was developed and its performance characteristics determined by [employer]. Nucleic acid amplification tests include RT-PCR and [...] (not detected) result in this assay. 35 note:<nlbl:[facility] ed> 36 Units are mL/min/1.73 m2 Chronic Kidney Disease Staging per NKF: Stage I & II GFR >=60 Normal to Mildly Decreased Stage III GFR 30-59 Moderately Decreased Stage IV GFR 15-29 Severely Decreased Stage V GFR <15 Very Little GFR Left ESRD GFR <15 on PHARMACY CLINICAL SPECIALIST 37 This nucleic acid amplificat ion test was developed and its performance characteristics determined by [employer]. Nucleic acid amplification tests include RT-PCR and [...] developed and its performance characteristics determined by [employer]. Nucleic acid amplification tests include RT-PCR and [...] assay. Procedures Date Code Description Status 05/07/2021 33017 Office/Outpatient Established Lo w MDM 20-29 Min Completed 05/07/2021 17643 Office/Outpatient New Low MDM 30 -44 Minutes Completed 05/07/2021 83880 Admin Patient Focused Health Ris k Assessment Instrument Completed 05/07/2021 40149 Brief Emotional/Beha v Assessment W/ Scoring Doc Per Standard Inst Completed 04/30/2021 99612 Office/Outpatient Established Mo d MDM 30-39 Min Completed 04/18/2021 17951 Office Visit New Level 1 Complet ed 04/13/2021 82213 Office/Outpatient Established Lo w MDM 20-29 Min Completed 04/13/2021 78147 Pulse Oximetry Single Determinat ion Completed 02/04/2021 18403 Office/Outpatient Established Lo w MDM 20-29 Min Completed 01/27/2021 82132 Office/Outpatient Established Mo d MDM 30-39 Min Completed 12/24/2020 45279 Office/Outpatient Established Lo w MDM 20-29 Min Completed 12/21/2020 34915 Office/Outpatient Established Lo w MDM 20-29 Min Completed 12/13/2020 22499 Office/Outpatient Established Lo w MDM 20-29 Min [...] Candidiasis of vulva and vagina Alma Kristyn, BRICK SORTER 05/07/2021 Z11.3 Encounter for screen ing for infections with a predominantly sexual mode of transmission Alma O'joshua, BRICK SORTER 05/07/2021 G43.009 Migraine without aur a, not [...] 3:00 pm - EM Muñiz CASAC at [facility] * 06/25/2021 3:00 pm - EM Muñiz CASAC at [facility] * 06/18/2021 2:00 pm - EM Muñiz CASAC at [facility] * 06/18/2021 11:00 am - Narinder Lima MD at [facility] * 06/17/2021 1:40 pm - Ry Rodriguez PA-C at [facility] * 08/14/2021 1:00 pm - Narinder Lima MD at [facility] 12/10/2019 - IRIS Dooley* [id number] Accidental fall* [...]
--- OUTSIDE RECORDS SUMMARY | 2021-06-21 20:57 | CCD | Continuity of Care Document ---
Author Houston Resendez [facility] Organization Unknown Address [facility] [address] [place] [address] Phone [phone] Care Team Providers Care Processing Associate Name Role Phone Narinder Lima M.D. AUTM [phone] [facility] AUTM [phone] [facility] AUTM [phone] [facility] AUTM [phone] Problems Active Problems Provider Date Migraine with [...] Date of Delivery Based on Final ANASTASIA Allergies, Adverse Reactions, Alerts Active Allergies Criticality Reaction | Severity Comments [...] Garret Donohue 08/09/2020 Vitamin D (Ergocalciferol) 1.25mg (82881 Ut) Capsules 1 cap by mouth every [...] CPT Code Status Date Vaccine Lot # [id number] Given 05/13/2020 Influenza (>= 6 Months) P.F. Vaccine [id number] Given 06/14/2018 Influenza (>= 6 Months) P.F. [...] Date Facility Test Result H/L Range Note Herpes Simplex Virus I/II Igg 05[facility]16[facility]20[facility] 1 IgG, Type Spec <0.91 index 0.00-0.90 1 HSV 2 IgG, Type Spec 2.06 index High 0.00-0.90 2 HSV-2 IgG SupplementalTest Positive Abnormal Negative 3 Laboratory test finding 05/16/2021 [facility] Vitamin B12 Serum 353 pg/mL 232 - 1245 4 HCV Fibrosure 05/16/2021 [facility] Fibrosis Score 0.02 NA 0.00-0.21 Fibrosis Stage COMMENT 5 Necroinflammat ActivityScore 0.03 NA 0.00-0.17 Necroinflammat ActivityGrade A0-No activity Alpha 2-Macroglobulins,Qn 157 mg/dL 110-276 Haptoglobin 228 mg/dL 33-278 Apolipoprotein A-1 105 mg/dL Low 116-209 Bilirubin, Total 0.1 mg/dL 0.0-1.2 GGT 12 IU/L 0-60 Alt (SGPT) P5P 13 IU/L 0-40 Interpretations: COMMENT 6 Fibrosis Scoring: COMMENT 7 Necroinflamm ActivityScoring: COMMENT 8 Limitations: COMMENT 9 Comment: WILL FOLLOW Herpes I&II Igm AB 05/16/2021 [facility] HSV, IgM I/II Combination <0.91 Ratio 0.00-0.90 10 HIV Panel 05/16/2021 [facility] HIV Screen 4thGeneration wRfx Non Reactive Non Reacti ve Laboratory test finding 05/16/2021 [facility] Syphilis NON-REACTIVE Normal:Non Reactive Hepatitis B Surf Antigen NONREACTIVE Normal:Non React stephanie Hep C Antibody With Reflex Quant PCR <0.1 s/coratio 0. 0-0.9 Comprehensive Metabolic Panel 05/16/2021 [facility] Comprehensive Metabo (SEE NOTE) 11 Sodium 138 mEq/L 134 - 153 Potassium [...] >60 mL/min Afr Amer GFR >60 mL/min 12 Laboratory test finding 05/16/2021 [facility] Ferritin Fallon 47.6 ng/mL 3.0 - 105 Iron Binding Capacity 05/16/2021 [facility] Iron 45 g/dL 42 - 135 Uibc 215 g/dL 112 - 347 Tibc 260 g/dL 250 - 450 Iron Sat 17 % Laboratory test finding 05/16/2021 [facility] Vitamin D (25-Hydroxy) 23 NG/ML 13 CBC W/Automated Diff 05/16/2021 [facility] CBC W/Automated Diff (SEE NOTE) 14 WBC 12.6 10^3/uL High 4.2 - 11.0 [...] Lymph 24.8 % Low 25.0 - 40.0 [place] 6.6 % 3.0 - 8.0 Eos 1.4 % 0.0 - 7.0 Baso 0.2 % 0.0 - 2.5 %Ig 0.3 % High 0.0 - 0.0 %NRBC 0.0 % 0.0 - 0.0 #Neut 8.36 10^3/uL High 2.00 - 6.90 #Lymph 3.12 10^3/uL 0.60 - 3.40 #[place] 0.83 10^3/uL 0.00 - 0.90 #Eos 0.18 10^3/uL 0.00 - 0.70 #Baso 0.03 10^3/uL 0.00 - 0.20 #Ig 0.04 10^3/uL 0.00 - 0.10 #NRBC 0.00 10^3/uL 0.00 - 0.00 Manual Diff NOT INDICATED RBC Morph NOT INDICATED Covid-19 05/12/2021 [facility] Sars-CoV-2, Bev Not Detected Not Detected 15, 16 Sars-CoV-2, Bev 2 Day Tat Performed Cuture Urine 05/07/2021 [facility] Culture Urine (SEE NOTE) 17, 18 Ua With Reflex To Ua Culture 05/07/2021 [facility] spital Ua Reflex To Ua Cult (SEE NOTE) 19 Source R Color yellow Normal: Yellow Clarity hazy Normal: Clear Spec [place] 1.020 1.001 - 1.030 pH 6 5 [...] 1+ Normal: None Seen Yeast Few Abnormal 20 Chlamydia GC/Trich 05/07/2021 [facility] Source: Genital 21 Chlamydia by Bev Negative Negative Gonococcus by Bev Negative Negative Trich vag by Bev Negative Negative Bacterial Vaginosis 05/07/2021 [facility] Source: Genital Ladi species Positive Abnormal Negative Gardnerella vaginalis Positive Abnormal Negative Trichomonas vaginalis Negative Negative Chlamydia/GC 05/07/2021 [facility] Chlam Trach QL Dna Probe <pending> GC By Dna Cervical Mucus <pending> Affirm Vaginitis Panel 05/07/2021 [facility] Z#Other Observations <pending> Covid-19 04/13/2021 [facility] Sars-CoV-2, Bev Not Detected Not Detected 22 Sars-CoV-2, Bev 2 Day Tat Performed Laboratory test finding 03/26/2021 [facility] Ferritin 73 NG/ML Normal 8-252 23 Total Iron Binding Capacit 03/26/2021 [facility] Iron (Fe) 78 g/dL Normal 50-170 Total Iron Binding Capacity 256 g/dL Normal 250-450 Percent Saturation 30.5 % Normal 13.2-45.0 Comprehensive Metabolic Profil 03/26/2021 [facility] Glucose, Fasting 109 mg/dL High 70-100 Blood Urea Nitrogen 14 mg/dL Normal 7-18 Creatinine For GFR 0.66 mg/dL Normal 0.55-1.30 Glomerular Filtration Rate > 60.0 Normal >60 2 4 Sodium Level 141 mEq/L Normal 136-145 Potassium [...] 1.2 Normal 1.2-2.2 CBC With Differential 03/26/2021 [facility] White Blood Count 9.9 10 [...] 36.0-66.0 Lymph % 27.1 % Normal 24.0-44.0 [place] % 6.4 % Normal 2.0-8.0 Eos % 1.5 % Normal 0.0-3.0 Baso % 0.3 % Normal 0.0-1.0 Immature Granulocyte % 0.4 % Normal 0-3.0 Nucleated Red Blood Cell % 0.0 % Normal 0-0 Neutrophils # 6.4 10 Normal 1.5-8.5 Lymph # 2.7 10 Normal 1.5-5.0 [place] # 0.6 10 Normal 0.0-0.8 Eos # 0.2 10 Normal 0.0-0.5 Baso # 0.0 10 Normal 0.0-0.2 Covid-19 02/07/2021 [facility] Sars-CoV-2, Bev Not Detected Not Detected 25 Sars-CoV-2, Bev 2 Day Tat Performed Laboratory test finding 02/04/2021 [facility] l Ferritin Fallon 63.5 ng/mL 3.0 - 105 26 Iron Binding Capacity 02/04/2021 [facility] Iron 58 g/dL 42 - 135 Uibc 173 g/dL 112 - 347 Tibc 231 g/dL Low 250 - 450 Iron Sat 25 % CBC W/Automated Diff 02/04/2021 [facility] CBC W/Automated Diff (SEE NOTE) 27 WBC 10.1 10^3/uL 4.2 - 11.0 RBC [...] 80.0 Lymph 34.6 % 25.0 - 40.0 [place] 7.5 % 3.0 - 8.0 Eos 2.8 % 0.0 - 7.0 Baso 0.4 % 0.0 - 2.5 %Ig 0.4 % High 0.0 - 0.0 %NRBC 0.0 % 0.0 - 0.0 #Neut 5.48 10^3/uL 2.00 - 6.90 #Lymph 3.49 10^3/uL High 0.60 - 3.40 #[place] 0.76 10^3/uL 0.00 - 0.90 #Eos 0.28 10^3/uL 0.00 - 0.70 #Baso 0.04 10^3/uL 0.00 - 0.20 #Ig 0.04 10^3/uL 0.00 - 0.10 #NRBC 0.00 10^3/uL 0.00 - 0.00 Manual Diff NOT INDICATED RBC Morph NOT INDICATED Laboratory test finding [facility] B12 Serum 204 pg/mL Low 232 - 1245 Vitamin D (25-Hydroxy) 19 NG/ML 28 Comprehensive Metabolic Panel 02/04/2021 [facility] Comprehensive Metabo (SEE NOTE) 29 Sodium 138 mEq/L 134 - 153 Potassium [...] >60 mL/min Afr Amer GFR >60 mL/min 30 Laboratory test finding 01/27/2021 [facility] T4 - Free 1.27 ng/dL 0.93 - 1.70 TSH Highly Sensitive 0.34 uIU/mL Low 0.47 - 5.01 Inhouse-Influenza A&B Rna Prob 12/13/2020 In Office Influenza Virus A QL PCR negative Negative Influenza Virus B QL PCR negative Negative Laboratory test finding 12/13/2020 [facility] Coronavirus Covid-19 Not Detected Not Detected 31 1 Negative <0.91 Equivocal 0.91 - 1.09 Positive >1.09 Note: Negative indicates no antibodies detected to HSV-1. Equivocal may suggest early infection. If clinically appropriate, retest at later date. Positive indicates antibodies detected to HSV-1. 2 Negative <0.91 Equivocal 0.91 - 1.09 Positive >1.09 Note: Negative indicates no antibodies detected to HSV-2. Equivocal may suggest early infection. If clinically appropriate, retest at later date. Positive indicates antibodies detected to HSV-2. 3 HSV-2 IgG HSV-2 IgG Type Specific Confirmation Interpretation Positive/Equivocal Positive Indicates the presence of detectable IgG antibodies to HSV-2. Positive/Equivocal Negative Unable to confirm the presence of IgG antibodies to HSV-2. Recommend retesting in 2-4 weeks. 4 .~.~<DG1.3.1>D51.9</DG1.3.1><DG1.3.1>D51.9</DG1.3.1><DG1.3.1>E55.9</DG1.3.1><DG1 .3.1 Is patient fasting? N~.~.~<DG1.3.1>D51.9</DG1.3.1><DG1.3.1> D51.9</DG1.3.1><DG1.3.1>E55.9</DG1.3. .~.~<DG1.3.1>D51.9</DG1.3.1><DG1.3.1>D51.9</DG1.3.1><DG1.3.1>E55.9</DG1.3.1><DG1 .3.1 .~.~<DG1.3.1>D51.9& lt;/DG1.3.1><DG1.3.1>D51.9</DG1.3.1><DG1.3.1>E55.9</DG1.3.1><DG1.3.1 .~.~<DG1.3.1>D51.9</DG1.3.1><DG1.3.1>D51.9</DG1.3.1><DG1.3.1>E55.9</DG1.3.1><DG1 .3.1 5 F0 - No fibrosis 6 Quantitative results of 6 bi ochemical tests are analyzed using a computational algorithm to provide a quantitative surrogate marker (0.0-1.0) for liver fibrosis (METAVIR F0-F4) and for necroinflammatory activity (METAVIR A0-A3). 7 <=0.21 = Stage F0 - No fibro [...] F4 >0.74 = Stage F4 - Cirrhosis 8 <0.17 = Grade A0 - No Activi ty 0.17 - 0.29 = Grade A0 - A1 0.29 - 0.36 = Grade A1 - Minimal activit y 0.36 - 0.52 = Grade A1 - A2 0.52 - 0.60 = Grade A2 - Moderate activi ty 0.60 - 0.62 = Grade A2 - A3 >0.62 = Grade A3 - Severe activity 9 The negative predictive valu e of a [...] fibrosis and necroinflammatory activity in the liver. 10 Negative <0.91 Equivocal 0.91 - 1.09 Positive >1.09 11 COMPREHENSIVE METABOLIC PANE L 12 Male GFR Interprentation 20-49 yrs >60 mL/min Normal 50-59 yrs >56 mL/min Normal 60-69 yrs >49 mL/min Normal 70-79yrs >42 mL/min Normal 80 and above >35 mL/min Normal Female GFR Interpretation 20-39 yrs >60 mL/min Normal 40-49 yrs >58 mL/min Normal 50-59 yrs >51 mL/min Normal 60-69 yrs >45 mL/min Normal 70-79 yrs >39 mL/min Normal 80 and above >32 mL/min Normal 13 VITAMIN-D(25HYDROXY) Deficiency: <=20 ng/ml Insufficiency: 21-29 ng/ml Preferred level: => 30 ng/ml 14 COMPLETE BLOOD COUNT 15 .~.~Z11.59 16 This nucleic acid amplificat ion test was developed and its performance characteristics determined by [employer]. Nucleic acid amplification tests include RT-PCR and [...] negative (not detected) result in this assay. 17 .~.~R30.0 18 _CULTURE URINE_ ^$200527 ^^031770 $$278397 ^^775358 $$397610 $$114445 $$001263 $$217403 $$124070 $$699833 $$243621 $$601172 $$652430 $$042482 $$594509 $$031396 $$476760 $$594211 $$635153 $$227999 $$787236 $$553551 $$105408 $$639220 $$163368 $$968008 $$002142 ^^227072 $$541156 $$793012 $$147780 -- Continued on next page -- Patient: POORNIMA eDnney Order: [id number] Page 2 Culture: CULTURE URINE Status: Final -- Continued on next page -- Patient: POORNIMA Denney Order: [id number] Page 2 Culture: CULTURE URINE Status: Prelim -- Continued on next page -- Patient: POORNIMA Denney Order: [id number] Page 2 Culture: CULTURE URINE Status: Prelim $$[id number] $$[id number] REPORTED DATE/TIME: 05/14/2021 12:06 Culture: CULTURE URINE [...] coli Flag: A Patient: POORNIMA Denney Order: [id number] Page 3 Culture: CULTURE URINE Status: Final [...] S S . . . . . .87532-7 Gentamicin S S . . . . . .267-5 Imipenem S S . . . . . .279-0 Levofloxacin S S . . . . . .25418-6 Meropenem S S . . . . . .6652-2 Nitrofurantoin S S . . . . . .363-2 Piperacillin/Tazobactam S S . . . . . .412-7 Tetracycline S S . . . . . .496-0 Tobramycin S S . . . . . .508-2 Trimethoprim/Sulfa S S . . . . . .516-5 P1 Test performed by: [facility] #: [id number] [address] [place] [address] [address] [id number] [facility] [address] Motorboat Operator : Armando Lang MD NPI #: Tip Banding Machine Operator : 05/12/21.0645.XMT.SENT REF 05/13/21.1623.XMT.SENT REF 05/14/21.1406.XMT.SENT REF 19 URINALYSIS 20 HYPAE YEAST 21 {SOURCE: Genital 22 This nucleic acid amplificat ion test was developed and its performance characteristics determined by [employer]. Nucleic acid amplification tests include RT-PCR and [...] negative (not detected) result in this assay. 23 note:<nlbl:kristan_manuel ed> 24 Units are mL/min/1.73 m2 Chronic Kidney Disease Staging per NKF: Stage I & II GFR >=60 Normal to Mildly Decreased Stage III GFR 30-59 Moderately Decreased Stage IV GFR 15-29 Severely Decreased Stage V GFR <15 Very Little GFR Left ESRD GFR <15 on COMPLAINT SPECIALIST 25 This nucleic acid amplificat ion test was developed and its performance characteristics determined by [employer]. Nucleic acid amplification tests include RT-PCR and [...] negative (not detected) result in this assay. 26 Is patient fasting? N 27 COMPLETE BLOOD COUNT 28 VITAMIN-D(25HYDROXY) Deficiency: <=20 ng/ml Insufficiency: 21-29 ng/ml Preferred level: => 30 ng/ml 29 COMPREHENSIVE METABOLIC PANE L 30 Male GFR Interprentation 20-49 yrs >60 mL/min Normal 50-59 yrs >56 mL/min Normal 60-69 yrs >49 mL/min Normal 70-79yrs >42 mL/min Normal 80 and above >35 mL/min Normal Female GFR Interpretation 20-39 yrs >60 mL/min Normal 40-49 yrs >58 mL/min Normal 50-59 yrs >51 mL/min Normal 60-69 yrs >45 mL/min Normal 70-79 yrs >39 mL/min Normal 80 and above >32 mL/min Normal 31 This nucleic acid amplificat ion test was developed and its performance characteristics determined by [employer]. Nucleic acid amplification tests include RT-PCR and [...] assay. Procedures Date Code Description Status 05/07/2021 54580 Office/Outpatient Established Lo w MDM 20-29 Min Completed 05/07/2021 81439 Office/Outpatient New Low MDM 30 -44 Minutes Completed 05/07/2021 48928 Admin Patient Focused Health Ris k Assessment Instrument Completed 05/07/2021 87347 Brief Emotional/Beha v Assessment W/ Scoring Doc Per Standard Inst Completed 04/30/2021 72405 Office/Outpatient Established Mo d MDM 30-39 Min Completed 04/18/2021 71835 Office Visit New Level 1 Complet ed 04/13/2021 32476 Office/Outpatient Established Lo w MDM 20-29 Min Completed 04/13/2021 66719 Pulse Oximetry Single Determinat ion Completed 02/04/2021 44168 Office/Outpatient Established Lo w MDM 20-29 Min Completed 01/27/2021 75378 Office/Outpatient Established Mo d MDM 30-39 Min Completed 12/24/2020 79803 Office/Outpatient Established Lo w MDM 20-29 Min Completed 12/21/2020 90982 Office/Outpatient Established Lo w MDM 20-29 Min Completed 12/13/2020 01135 Office/Outpatient Established Lo w MDM 20-29 Min Completed 11/30/2020 87118 Office Visit New Level 1 Complet ed Medical Devices Description No Information Available Encounters Description No Information Available Assessments Date Code Description Provider 05/28/2021 F31.60 Bipolar disorder, current episod e mixed, unspecified EM Muñiz, CASAC 05/28/2021 F12.20 Cannabis dependence, uncomplicat ed EM Muñiz, CASAC 05/14/2021 F31.60 Bipolar disorder, current episod e mixed, unspecified EM Muñiz, CASAC 05/14/2021 F12.20 Cannabis dependence, uncomplicat ed EM Muñiz, CASAC 05/07/2021 B37.3 Candidiasis of vulva and vagina Alma Simons, NEETA 05/07/2021 Z11.3 Encounter for screen ing for [...] current episod e mixed, unspecified Amara Velazquez [facility], CASAC 03/12/2021 F12.20 Cannabis dependence, uncomplicat ed Amara Velazquez [facility], CASAC 03/12/2021 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, in remission Alec Velazquez LM, CASAC 02/05/2021 F31.60 Bipolar disorder, current episod e mixed, unspecified Amara Velazquez [facility], CASAC 02/05/2021 F12.20 Cannabis dependence, uncomplicat ed Amara Velazquez [facility], CASAC 02/05/2021 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, in remission Alec Velazquez [facility], CASAC 02/04/2021 G43.009 Migraine without aur a, [...] current episod e mixed, unspecified Amara Velazquez [facility], CASAC 01/01/2021 F12.20 Cannabis dependence, uncomplicat ed Amara Velazquez [facility], CASAC 01/01/2021 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, in remission Alec Velazquez [facility], CASAC 12/24/2020 M62.830 Muscle spasm of back Yoni Dsouza vondachuy, CONTENT ANALYST 12/21/2020 G43.009 Migraine without aur a, not intractable, without status migrainosus Juliana Hogan PA-C 12/13/2020 R05 Cough Chiki Baldwin NP 12/04/2020 F31.60 Bipolar disorder, current episod e mixed, unspecified EM Muñiz, DIANDRA 12/04/2020 F12.20 Cannabis dependence, uncomplicat ed EM Muñiz, DIANDRA 12/04/2020 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, in remission EM Greco, DIANDRA 11/30/2020 G43.009 Migraine without aur a, not intractable, without status migrainosus Jose F Negro PA-C Plan of Treatment Future Appointment(s):* 06/11/2021 5:00 pm - EM Muñiz CASAC at [facility] * 06/17/2021 1:40 pm - Ry Rodriguez PA-C at Behavioral Health * 08/14/2021 1:00 pm - Narinder Lima MD at [facility] * 05/29/2021 10:00 am - Alma Simons NP at [facility] * 06/10/2021 2:40 pm - Ry Rodriguez PA-C at Behavior[facility] Health * 06/10/2021 2:00 pm - EM Muñiz CASAC at Behavior[facility] Health 04/18/2021 - Antwan Ragland PA-C* J06.9 Acute upper respiratory infection, unspecified Functional Status Description No Information Available Mental Status Description No Information Available Referrals Description No Information Available
--- OUTSIDE RECORDS SUMMARY | 2021-06-21 20:57 | CCD | Continuity of Care Document ---
Author Houston Resendez [facility] Organization Unknown Address [facility] [address] [place] [address] Phone [phone] Care Team Providers Care Sample Washer Name Role Phone Narinder Lima M.D. AUTM [phone] [facility] AUTM [phone] [facility] AUTM [facility] AUTM Problems Active Problems [...] Soliz LCSW Onset: 06/19/2020 Cannabis dependence, uncomplicated Jessu Soliz LCSW Onse t: 06/19/2020 Cobalamin deficiency [...] Garret Donohue 08/09/2020 Vitamin D (Ergocalciferol) 1.25mg (34139 Ut) Capsules 1 cap by mouth every [...] CPT Code Status Date Vaccine Lot # [id number] Given 05/13/2020 Influenza (>= 6 Months) P.F. Vaccine [id number] Given 06/14/2018 Influenza (>= 6 Months) P.F. [...] Note Herpes Simplex Virus I/II Igg 05/16/2021 [facility] HSV 1 IgG, Type Spec <0.91 index 0.00-0.90 1 HSV 2 IgG, Type Spec 2.06 index High 0.00-0.90 2 HSV-2 IgG SupplementalTest Positive Abnormal Negative 3 Laboratory test finding 05/16/2021 [facility] Vitamin B12 Serum 353 pg/mL 232 - 1245 4 HCV Fibrosure 05/16/2021 [facility] Fibrosis Score 0.02 NA 0.00-0.21 Fibrosis [...] WILL FOLLOW Herpes I&II Igm AB 05/16/2021 [facility] HSV, IgM I/II Combination <0.91 Ratio 0.00-0.90 10 HIV Panel 05/16/2021 [facility] HIV Screen 4thGeneration wRfx Non Reactive Non Reacti ve Laboratory test finding 05/16/2021 [facility] Syphilis NON-REACTIVE Normal:Non Reactive Hepatitis B Surf Antigen NONREACTIVE Normal:Non React stephanie Hep C Antibody With Reflex Quant PCR <0.1 s/coratio 0. 0-0.9 Comprehensive Metabolic Panel 05/16/2021 [facility] Comprehensive Metabo (SEE NOTE) 11 [...] >60 mL/min 12 Laboratory test finding 05/16/2021 [facility] Ferritin Fallon 47.6 ng/mL 3.0 - 105 Iron Binding Capacity 05/16/2021 [facility] Iron 45 g/dL 42 - 135 Uibc 215 g/dL 112 - 347 Tibc 260 g/dL 250 - 450 Iron Sat 17 % Laboratory test finding 05/16/2021 [facility] Vitamin D (25-Hydroxy) 23 NG/ML 13 CBC W/Automated Diff 05/16/2021 [facility] CBC W/Automated Diff (SEE NOTE) 14 [...] Lymph 24.8 % Low 25.0 - 40.0 [place] 6.6 % 3.0 - 8.0 Eos 1.4 % 0.0 - 7.0 Baso 0.2 % 0.0 - 2.5 %Ig 0.3 % High 0.0 - 0.0 %NRBC 0.0 % 0.0 - 0.0 #Neut 8.36 10^3/uL High 2.00 - 6.90 #Lymph 3.12 10^3/uL 0.60 - 3.40 #[place] 0.83 10^3/uL 0.00 - 0.90 #Eos 0.18 10^3/uL 0.00 - 0.70 #Baso 0.03 10^3/uL 0.00 - 0.20 #Ig 0.04 10^3/uL 0.00 - 0.10 #NRBC 0.00 10^3/uL 0.00 - 0.00 Manual Diff NOT INDICATED RBC Morph NOT INDICATED Covid-19 05/12/2021 [facility] Sars-CoV-2, Bev Not Detected Not Detected 15, 16 Sars-CoV-2, Bev 2 Day Tat Performed Cuture Urine 05/07/2021 [facility] Culture Urine (SEE NOTE) 17, 18 Ua With Reflex To Ua Culture 05/07/2021 [facility] spital Ua Reflex To Ua Cult (SEE NOTE) 19 Source R Color yellow Normal: Yellow Clarity hazy Normal: Clear Spec Eugene 1.020 1.001 - 1.030 pH 6 5 [...] Yeast Few Abnormal 20 Chlamydia GC/Trich 05/07/2021 [facility] Source: Genital 21 Chlamydia by Bev Negative Negative Gonococcus by Bev Negative Negative Trich vag by Bev Negative Negative Bacterial Vaginosis 05/07/2021 [facility] Source: Genital Ladi species Positive Abnormal Negative Gardnerella vaginalis Positive Abnormal Negative Trichomonas vaginalis Negative Negative Chlamydia/GC 05/07/2021 [facility] Chlam Trach QL Dna Probe <pending> GC By Dna Cervical Mucus <pending> Affirm Vaginitis Panel 05/07/2021 [facility] Z#Other Observations <pending> Covid-19 04/13/2021 [facility] Sars-CoV-2, Bev Not Detected Not Detected 22 Sars-CoV-2, Bev 2 Day Tat Performed Laboratory test finding 03/26/2021 [facility] Ferritin 73 NG/ML Normal 8-252 23 Total Iron Binding Capacit 03/26/2021 [facility] Iron (Fe) 78 g/dL Normal 50-170 Total Iron Binding Capacity 256 g/dL Normal 250-450 Percent Saturation 30.5 % Normal 13.2-45.0 Comprehensive Metabolic Profil 03/26/2021 [facility] Glucose, Fasting 109 mg/dL High 70-100 [...] 1.2 Normal 1.2-2.2 CBC With Differential 03/26/2021 [facility] White Blood Count 9.9 10 Normal [...] 36.0-66.0 Lymph % 27.1 % Normal 24.0-44.0 [place] % 6.4 % Normal 2.0-8.0 Eos % 1.5 % Normal 0.0-3.0 Baso % 0.3 % Normal 0.0-1.0 Immature Granulocyte % 0.4 % Normal 0-3.0 Nucleated Red Blood Cell % 0.0 % Normal 0-0 Neutrophils # 6.4 10 Normal 1.5-8.5 Lymph # 2.7 10 Normal 1.5-5.0 [place] # 0.6 10 Normal 0.0-0.8 Eos # 0.2 10 Normal 0.0-0.5 Baso # 0.0 10 Normal 0.0-0.2 Covid-19 02/07/2021 [facility] Sars-CoV-2, Bev Not Detected Not Detected 25 Sars-CoV-2, Bev 2 Day Tat Performed Laboratory test finding 02/04/2021 [facility] Ferritin Fallon 63.5 ng/mL 3.0 - 105 26 Iron Binding Capacity 02/04/2021 [facility] Iron 58 g/dL 42 - 135 Uibc 173 g/dL 112 - 347 Tibc 231 g/dL Low 250 - 450 Iron Sat 25 % CBC W/Automated Diff 02/04/2021 [facility] CBC W/Automated Diff (SEE NOTE) 27 [...] 80.0 Lymph 34.6 % 25.0 - 40.0 [place] 7.5 % 3.0 - 8.0 Eos 2.8 % 0.0 - 7.0 Baso 0.4 % 0.0 - 2.5 %Ig 0.4 % High 0.0 - 0.0 %NRBC 0.0 % 0.0 - 0.0 #Neut 5.48 10^3/uL 2.00 - 6.90 #Lymph 3.49 10^3/uL High 0.60 - 3.40 #[place] 0.76 10^3/uL 0.00 - 0.90 #Eos 0.28 10^3/uL 0.00 - 0.70 #Baso 0.04 10^3/uL 0.00 - 0.20 #Ig 0.04 10^3/uL 0.00 - 0.10 #NRBC 0.00 10^3/uL 0.00 - 0.00 Manual Diff NOT INDICATED RBC Morph NOT INDICATED Laboratory test [facility] B12 Serum 204 pg/mL Low 232 - 1245 Vitamin D (25-Hydroxy) 19 NG/ML 28 Comprehensive Metabolic Panel 02/04/2021 [facility] Comprehensive Metabo (SEE NOTE) 29 [...] >60 mL/min 30 Laboratory test finding 01/27/2021 [facility] T4 - Free 1.27 ng/dL 0.93 - 1.70 TSH Highly Sensitive 0.34 uIU/mL Low 0.47 - 5.01 Inhouse-Influenza A&B Rna Prob 12/13/2020 In Office Influenza Virus A QL PCR negative Negative Influenza Virus B QL PCR negative Negative Laboratory test finding 12/13/2020 [facility] Coronavirus Covid-19 Not Detected Not Detected [...] developed and its performance characteristics determined by [employer]. Nucleic acid amplification tests include RT-PCR and [...] this assay. 17 .~.~R30.0 18 _CULTURE URINE_ ^$703494 ^^587561 $$540025 ^^738475 $$188124 $$931668 $$398436 $$580851 $$014377 $$263229 $$253878 $$208893 $$211467 $$090180 $$819791 $$590635 $$291411 $$616438 $$904285 $$023224 $$008584 $$173749 $$709296 $$825530 $$326195 $$336243 $$336926 ^^956215 $$593101 $$830391 $$915114 -- Continued on next page -- Patient: POORNIMA Denney Order: [id number] Page 2 Culture: CULTURE URINE Status: Final -- Continued on next page -- Patient: POORNIMA Denney Order: [id number] Page 2 Culture: CULTURE URINE Status: Prelim -- Continued on next page -- Patient: POORNIMA Denney Order: [id number] Page 2 Culture: CULTURE URINE Status: Prelim $$[id number] $$[id number] REPORTED DATE/TIME: 05/14/2021 12:06 Culture: CULTURE URINE [...] coli Flag: A Patient: POORNIMA Denney Order: [id number] Page 3 Culture: CULTURE URINE Status: Final [...] S S . . . . . .91449-5 Gentamicin S S . . . . . .267-5 Imipenem S S . . . . . .279-0 Levofloxacin S S . . . . . .48960-1 Meropenem S S . . . . . .6652-2 Nitrofurantoin S S . . . . . .363-2 Piperacillin/Tazobactam S S . . . . . .412-7 Tetracycline S S . . . . . .496-0 Tobramycin S S . . . . . .508-2 Trimethoprim/Sulfa S S . . . . . .516-5 P1 Test performed by: [employer] [facility] #: [id number] [address] [place] [address] [address] [phone] [facility] [address] [address] And Building Decorator : Armando Lang MD NPI #: Maternity Floor Supervisor : 05/12/[email or web address].SENT REF 05/13/21.1623.XMT.SENT REF 05/14/21.1406.XMT.SENT REF 19 URINALYSIS 20 HYPAE YEAST 21 {SOURCE: Genital 22 This nucleic acid amplificat ion test was developed and its performance characteristics determined by [employer]. 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 Nucleic acid amplification tests include RT-PCR and [...] developed and its performance characteristics determined by [employer]. Nucleic acid amplification tests include RT-PCR and [...] assay. Procedures Date Code Description Status 05/07/2021 18070 Office/Outpatient Established Lo w MDM 20-29 Min Completed 05/07/2021 38543 Office/Outpatient New Low MDM 30 -44 Minutes Completed 05/07/2021 04136 Admin Patient Focused Health Ris k Assessment Instrument Completed 05/07/2021 85453 Brief Emotional/Beha v Assessment W/ Scoring Doc Per Standard Inst Completed 04/30/2021 32130 Office/Outpatient Established Mo d MDM 30-39 Min Completed 04/18/2021 14293 Office Visit New Level 1 Complet ed 04/13/2021 17314 Office/Outpatient Established Lo w MDM 20-29 Min Completed 04/13/2021 02836 Pulse Oximetry Single Determinat ion Completed 02/04/2021 51940 Office/Outpatient Established Lo w MDM 20-29 Min Completed 01/27/2021 20699 Office/Outpatient Established Mo d MDM 30-39 Min Completed 12/24/2020 36658 Office/Outpatient Established Lo w MDM 20-29 Min Completed 12/21/2020 91446 Office/Outpatient Established Lo w MDM 20-29 Min Completed 12/13/2020 88727 Office/Outpatient Established Lo w MDM 20-29 Min Completed 11/30/2020 48012 Office Visit New Level 1 Complet ed [...] current episod e mixed, unspecified Amara Velazquez [facility], [facility] 03/12/2021 F12.20 Cannabis dependence, uncomplicat ed Amara Velazquez [facility], [facility] 03/12/2021 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, in remission Alec Velazquez LM, [facility] 02/05/2021 F31.60 Bipolar disorder, current episod e mixed, unspecified Amara Velazquez [facility], [facility] 02/05/2021 F12.20 Cannabis dependence, uncomplicat ed Amara Velazquez [facility], [facility] 02/05/2021 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, in remission Alec Velazquez [facility], [facility] 02/04/2021 G43.009 Migraine without aur [...] current episod e mixed, unspecified Amara Velazquez [facility], [facility] 01/01/2021 F12.20 Cannabis dependence, uncomplicat ed Amara Velazquez [facility], [facility] 01/01/2021 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, in remission Alec Velazquez [facility], [facility] 12/24/2020 M62.830 Muscle spasm of back Yoni Dsouza vondachuy, [employer] 12/21/2020 G43.009 Migraine without aur a, not [...] pm - Narinder Lima MD at [facility] * 05/29/2021 10:00 am - Alma Simons NP at [facility] * 06/10/2021 2:40 pm - Ry Rodriguez PA-C at [facility] * 06/10/2021 2:00 pm - EM Muñiz [facility] at [facility] 04/18/2021 - Antwan Ragland PA-C* J06.9 Acute upper respiratory infection, unspecified Functional Status Description No Information Available Mental Status Description No Information Available Referrals Description No Information Available
--- OUTSIDE RECORDS SUMMARY | 2021-06-21 20:57 | CCD | Continuity of Care Document ---
Author Author Houston LIMA M.D. Organization Unknown Address [address] [place] [id number] Phone [phone] Care Team Providers Care Maintenance Man Name Role Phone Narinder Lima M.D. AUTM [phone] [facility] [address] [facility] AUTM [facility] AUTM [phone] [facility] AUTM [phone] Problems Active Problems Provider Date Migraine with [...] Garret Donohue 08/09/2020 Vitamin D (Ergocalciferol) 1.25mg (07680 Ut) Capsules 1 cap by mouth every [...] CPT Code Status Date Vaccine Lot # [id number] Given 05/13/2020 Influenza (>= 6 Months) P.F. Vaccine [id number] Given 06/14/2018 Influenza (>= 6 Months) P.F. [...] H/L Range Note Covid And Flu 05/30/2021 [facility] Influenza A Amplification NEGATIVE Normal Negative 1 Influenza B Amplification NEGATIVE Normal Negative 2 RSV Amplification NEGATIVE Normal Negative 3 Sars Covid-19 Amplification NEGATIVE Normal Negative 4 Laboratory test finding 05/30/2021 [facility] Honalo Level 0.34 mEq/L Low 0.60-1.20 5 Liver Profile 05/30/2021 [facility] Ast/Sgot 19 U/L Normal 7-37 Alt/SGPT 23 U/L Normal 12-78 Alkaline Phosphatase 83 U/L Normal 45-117 Bilirubin,Total 0.7 mg/dL Normal 0.2-1.0 Bilirubin,Direct 0.2 mg/dL Normal 0.0-0.2 Total Protein 8.1 GM/DL Normal 6.4-8.2 Albumin 4.4 GM/DL Normal 3.2-5.2 Albumin/Globulin Ratio 1.2 Normal 1.2-2.2 Basic Metabolic Profile 05/30/2021 [facility] Glucose, Fasting 96 mg/dL Normal 70-100 Blood [...] mg/dL High 8.5-10.1 Laboratory test finding 05/30/2021 [facility] Ethyl Alcohol (Ethanol) < 0.003 % Normal 0.000-0.010 7 Salicylate Level 5.4 mg/dL Normal 5.0-30.0 8 Acetaminophen Level < 2.0 UG/ML Low 10.0-30.0 9 Thyroid Stimulating Hormone 0.283 uIU/ML Low 0.358-3.740 10 HCG Serum Qualitative NEGATIVE Normal Negative 11 Drug Eval Toxicology ED Only 05/30/2021 [facility] ([place], [place]) Ronald Amphetamines Level Urine NEGATIVE Normal Negative Barbiturates Urine NEGATIVE Normal Negative Benzodiazepines Urine NEGATIVE Normal Negative Cannabinoids Urine POSITIVE High Negative Cocaine Metabolite Urine POSITIVE High Negative Methadone Urine NEGATIVE Normal Negative Opiates Urine NEGATIVE Normal Negative Phencyclidine Urine NEGATIVE Normal Negative 12 Complete Blood Count 05/30/2021 [facility] White Blood Count 17.0 10 High 4.0-10.0 [...] % Normal 0-0 Comprehensive Metabolic Panel 05/16/2021 [facility] Comprehensive Metabo (SEE NOTE) 13, 14 [...] GFR >60 mL/min 15 HCV Fibrosure 05/16/2021 [facility] Fibrosis Score 0.02 NA 0.00-0.21 Fibrosis [...] WILL FOLLOW Herpes I&II Igm AB 05/16/2021 [facility] HSV, IgM I/II Combination <0.91 Ratio 0.00-0.90 21 Herpes Simplex Virus I/II Igg 05/16/2021 [facility]ital HSV 1 IgG, Type Spec <0.91 index 0.00-0.90 22 HSV 2 IgG, Type Spec 2.06 index High 0.00-0.90 23 HSV-2 IgG SupplementalTest Positive Abnormal Negative 2 4 HIV Panel 05/16/2021 [facility] HIV Screen 4thGeneration wRfx Non Reactive Non Reacti ve Laboratory test finding 05/16/2021 [facility] Syphilis NON-REACTIVE Normal:Non Reactive Hepatitis B Surf Antigen NONREACTIVE Normal:Non React stephanie Hep C Antibody With Reflex Quant PCR <0.1 s/coratio 0. 0-0.9 Laboratory test finding 05/16/2021 [facility] Ferritin Fallon 47.6 ng/mL 3.0 - 105 Iron Binding Capacity 05/16/2021 [facility] Iron 45 g/dL 42 - 135 Uibc 215 g/dL 112 - 347 Tibc 260 g/dL 250 - 450 Iron Sat 17 % Laboratory test finding 05/16/2021 [facility] Vitamin D (25-Hydroxy) 23 NG/ML 25 CBC W/Automated Diff 05/16/2021 [facility] CBC W/Automated Diff (SEE NOTE) 26 [...] Lymph 24.8 % Low 25.0 - 40.0 [place] 6.6 % 3.0 - 8.0 Eos 1.4 % 0.0 - 7.0 Baso 0.2 % 0.0 - 2.5 %Ig 0.3 % High 0.0 - 0.0 %NRBC 0.0 % 0.0 - 0.0 #Neut 8.36 10^3/uL High 2.00 - 6.90 #Lymph 3.12 10^3/uL 0.60 - 3.40 #[place] 0.83 10^3/uL 0.00 - 0.90 #Eos 0.18 10^3/uL 0.00 - 0.70 #Baso 0.03 10^3/uL 0.00 - 0.20 #Ig 0.04 10^3/uL 0.00 - 0.10 #NRBC 0.00 10^3/uL 0.00 - 0.00 Manual Diff NOT INDICATED RBC Morph NOT INDICATED Laboratory test finding 05/16/2021 [facility] l Vitamin B12 Serum 353 pg/mL 232 - 1245 Covid-19 05/12/2021 [facility] Sars-CoV-2, Bev Not Detected Not Detected 27, 28 Sars-CoV-2, Bev 2 Day Tat Performed Cuture Urine 05/07/2021 [facility] Culture Urine (SEE NOTE) 29, 30 Ua With Reflex To Ua Culture 05/07/2021 [facility] spital Ua Reflex To Ua Cult (SEE NOTE) 31 Source R Color yellow Normal: Yellow Clarity hazy Normal: Clear Spec [place] 1.020 1.001 - 1.030 pH 6 5 [...] Yeast Few Abnormal 32 Chlamydia GC/Trich 05/07/2021 [facility] Source: Genital 33 Chlamydia by Bev Negative Negative Gonococcus by Bev Negative Negative Trich vag by Bev Negative Negative Bacterial Vaginosis 05/07/2021 [facility] Source: Genital Ladi species Positive Abnormal Negative Gardnerella vaginalis Positive Abnormal Negative Trichomonas vaginalis Negative Negative Chlamydia/GC 05/07/2021 [facility] Chlam Trach QL Dna Probe <pending> GC By Dna Cervical Mucus <pending> Affirm Vaginitis Panel 05/07/2021 [facility] Z#Other Observations <pending> Covid-19 04/13/2021 [facility] Sars-CoV-2, Bev Not Detected Not Detected 34 Sars-CoV-2, Bev 2 Day Tat Performed Laboratory test finding 03/26/2021 [facility] Ferritin 73 NG/ML Normal 8-252 35 Total Iron Binding Capacit 03/26/2021 [facility] Iron (Fe) 78 g/dL Normal 50-170 Total Iron Binding Capacity 256 g/dL Normal 250-450 Percent Saturation 30.5 % Normal 13.2-45.0 Comprehensive Metabolic Profil 03/26/2021 [facility] Glucose, Fasting 109 mg/dL High 70-100 Blood [...] 1.2 Normal 1.2-2.2 CBC With Differential 03/26/2021 [facility] White Blood Count 9.9 10 Normal 4.0-10.0 [...] 36.0-66.0 Lymph % 27.1 % Normal 24.0-44.0 [place] % 6.4 % Normal 2.0-8.0 Eos % 1.5 % Normal 0.0-3.0 Baso % 0.3 % Normal 0.0-1.0 Immature Granulocyte % 0.4 % Normal 0-3.0 Nucleated Red Blood Cell % 0.0 % Normal 0-0 Neutrophils # 6.4 10 Normal 1.5-8.5 Lymph # 2.7 10 Normal 1.5-5.0 [place] # 0.6 10 Normal 0.0-0.8 Eos # 0.2 10 Normal 0.0-0.5 Baso # 0.0 10 Normal 0.0-0.2 Covid-19 02/07/2021 [facility] Sars-CoV-2, Bev Not Detected Not Detected 37 Sars-CoV-2, Bev 2 Day Tat Performed Laboratory test finding 02/04/2021 [facility] l Ferritin Fallon 63.5 ng/mL 3.0 - 105 38 Iron Binding Capacity 02/04/2021 [facility] Iron 58 g/dL 42 - 135 Uibc 173 g/dL 112 - 347 Tibc 231 g/dL Low 250 - 450 Iron Sat 25 % CBC W/Automated Diff 02/04/2021 [facility] CBC W/Automated Diff (SEE NOTE) 39 [...] 80.0 Lymph 34.6 % 25.0 - 40.0 [place] 7.5 % 3.0 - 8.0 Eos 2.8 % 0.0 - 7.0 Baso 0.4 % 0.0 - 2.5 %Ig 0.4 % High 0.0 - 0.0 %NRBC 0.0 % 0.0 - 0.0 #Neut 5.48 10^3/uL 2.00 - 6.90 #Lymph 3.49 10^3/uL High 0.60 - 3.40 #[place] 0.76 10^3/uL 0.00 - 0.90 #Eos 0.28 10^3/uL 0.00 - 0.70 #Baso 0.04 10^3/uL 0.00 - 0.20 #Ig 0.04 10^3/uL 0.00 - 0.10 #NRBC 0.00 10^3/uL 0.00 - 0.00 Manual Diff NOT INDICATED RBC Morph NOT INDICATED Laboratory test finding 02/04/2021 [facility] l Vitamin B12 Serum 204 pg/mL Low 232 - 1245 Vitamin D (25-Hydroxy) 19 NG/ML 40 Comprehensive Metabolic Panel 02/04/2021 [facility] Comprehensive Metabo (SEE NOTE) 41 [...] >60 mL/min 42 Laboratory test finding 01/27/2021 [facility] l T4 - Free 1.27 ng/dL 0.93 - 1.70 TSH Highly Sensitive 0.34 uIU/mL Low 0.47 - 5.01 Inhouse-Influenza A&B Rna Prob 12/13/2020 In Office Influenza Virus A QL PCR negative Negative Influenza Virus B QL PCR negative Negative Laboratory test finding 12/13/2020 [facility] Coronavirus Covid-19 Not Detected Not Detected 43 [...] pathogens. DISCLAIMER: Testing was performed using the [employer] SARS-CoV-2 test. This test was developed and its performance characteristics determined by [employer]. This test has not been FDA cleared [...] Little GFR Left ESRD GFR <15 on EXTRUDING PRESS OPERATOR 7 note:<nlbl:demographic_chang ed> 8 note:<nlbl:demographic_chang ed> 9 note:<nlbl:demographic_[facility] ed> 10 note:<nlbl:demographic_[facility] ed> 11 note:<nlbl:demographic_[facility] ed> 12 ALL PRESUMPTIVE POSITIVE FINDINGS [...] developed and its performance characteristics determined by [employer]. Nucleic acid amplification tests include RT-PCR and [...] this assay. 29 .~.~R30.0 30 _CULTURE URINE_ ^$084584 ^^[id number] $$560093 ^^615018 $$980664 $$123561 $$066255 $$977467 $$488750 $$921558 $$557745 $$804889 $$757627 $$577897 $$415188 $$705167 $$369919 $$146066 $$647265 $$210251 $$139901 $$410794 $$986257 $$952432 $$355455 $$182467 $$187451 ^^263451 $$518042 $$405500 $$330604 -- Continued on next page -- Patient: POORNIMA Denney Order: Page 2 Culture: CULTURE URINE Status: Final -- Continued on next page -- Patient: POORNIMA Denney Order: Page 2 Culture: CULTURE URINE Status: Prelim -- Continued on next page -- Patient: POORNIMA Denney Order: Page 2 Culture: CULTURE URINE Status: Prelim $$[id number] $$[id number] REPORTED DATE/TIME: 05/14/2021 12:06 Culture: CULTURE URINE [...] coli Flag: A Patient: POORNIMA Denney Order: [id number] Page 3 Culture: CULTURE URINE Status: Final [...] S S . . . . . .35336-3 Gentamicin S S . . . . . .267-5 Imipenem S S . . . . . .279-0 Levofloxacin S S . . . . . .96634-3 Meropenem S S . . . . . .6652-2 Nitrofurantoin S S . . . . . .363-2 Piperacillin/Tazobactam S S . . . . . .412-7 Tetracycline S S . . . . . .496-0 Tobramycin S S . . . . . .508-2 Trimethoprim/Sulfa S S . . . . . .516-5 P1 Test performed by: [facility] #: [id number] [address] [id number] [facility] [id number] Corporate Travel Expert : Armando Lang MD NPI #: Production Stage Manager : 05/12/21.0645.XMT.SENT REF 05/13/21.1623.XMT.SENT REF 05/14/21.1406.XMT.SENT REF 31 URINALYSIS 32 HYPAE YEAST 33 {SOURCE: Genital 34 This nucleic acid amplificat ion test was developed and its performance characteristics determined by [employer]. Nucleic acid amplification tests include RT-PCR and [...] (not detected) result in this assay. 35 note:<nlbl:[facility]_chang ed> 36 Units are mL/min/1.73 m2 Chronic Kidney Disease Staging per NKF: Stage I & II GFR >=60 Normal to Mildly Decreased Stage III GFR 30-59 Moderately Decreased Stage IV GFR 15-29 Severely Decreased Stage V GFR <15 Very Little GFR Left ESRD GFR <15 on EXTRUDING PRESS OPERATOR 37 This nucleic acid amplificat ion test was developed and its performance characteristics determined by [employer]. Nucleic acid amplification tests include RT-PCR and [...] developed and its performance characteristics determined by [employer]. Nucleic acid amplification tests include RT-PCR and [...] assay. Procedures Date Code Description Status 05/07/2021 85151 Office/Outpatient Established Lo w MDM 20-29 Min Completed 05/07/2021 79111 Office/Outpatient New Low MDM 30 -44 Minutes Completed 05/07/2021 62585 Admin Patient Focused Health Ris k Assessment Instrument Completed 05/07/2021 11151 Brief Emotional/Beha v Assessment W/ Scoring Doc Per Standard Inst Completed 04/30/2021 87967 Office/Outpatient Established Mo d MDM 30-39 Min Completed 04/18/2021 91284 Office Visit New Level 1 Complet ed 04/13/2021 90570 Office/Outpatient Established Lo w MDM 20-29 Min Completed 04/13/2021 17517 Pulse Oximetry Single Determinat ion Completed 02/04/2021 99035 Office/Outpatient Established Lo w MDM 20-29 Min Completed 01/27/2021 24162 Office/Outpatient Established Mo d MDM 30-39 Min Completed 12/24/2020 98394 Office/Outpatient Established Lo w MDM 20-29 Min Completed 12/21/2020 87961 Office/Outpatient Established Lo w MDM 20-29 Min Completed 12/13/2020 50531 Office/Outpatient Established Lo w MDM 20-29 Min Completed Medical Devices Description No Information Available Encounters Description No Information Available Assessments Date Code Description Provider 06/03/2021 F31.60 Bipolar disorder, current episod e mixed, unspecified Amara Velazquez LM, CASAC 06/03/2021 F12.20 Cannabis dependence, uncomplicat ed Amara Velazquez LM, CASAC 05/28/2021 F31.60 Bipolar disorder, current episod e mixed, unspecified Amara Velazquez LM, CASAC 05/28/2021 F12.20 Cannabis dependence, uncomplicat ed Amara Velazquez [facility], CASAC 05/14/2021 F31.60 Bipolar disorder, current episod e mixed, unspecified Amara Velazquez LM, CASAC 05/14/2021 F12.20 Cannabis dependence, uncomplicat ed Amara Velazquez LM, CASAC 05/07/2021 B37.3 Candidiasis of vulva and vagina Alma Simons NP 05/07/2021 Z11.3 Encounter for screen ing for infections with a predominantly sexual mode of transmission Alma Simons NP 05/07/2021 G43.009 Migraine without aur a, not intractable, without status migrainosus Narinder Lima MD 05/07/2021 E55.9 Vitamin D deficiency, unspecifie d Narinder Lima MD 05/07/2021 D51.9 Vitamin B12 deficiency anemia, u nspecified Narinder Lima MD 04/30/2021 F31.60 Bipolar disorder, current episod e mixed, unspecified HANSEL MedinaC 04/30/2021 F12.20 Cannabis dependence, uncomplicat ed Ry Rodriguez, HANSELC 04/30/2021 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, in remission HANSEL FrancisC 04/18/2021 J06.9 Acute upper respiratory infectio n, unspecified Antwan Ragland, HANSELC 04/13/2021 A09 Infectious gastroenteritis and c olitis, unspecified [facility] Baker[facility] 04/11/2021 F31.60 Bipolar disorder, current episod e mixed, unspecified Amara Velazquez LM, CASAC 04/11/2021 F12.20 Cannabis dependence, uncomplicat ed Amara Velazquez [facility], CASAC 04/11/2021 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, in remission Alec Velazquez LM, CASAC 03/12/2021 F31.60 Bipolar disorder, current episod e mixed, unspecified Amara Velazquez LM, CASAC 03/12/2021 F12.20 Cannabis dependence, uncomplicat ed Amara Velazquez [facility], CASAC 03/12/2021 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, in remission Alec Velazquez LM, CASAC 02/05/2021 F31.60 Bipolar disorder, current episod e mixed, unspecified Amara Velazquez [facility], CASAC 02/05/2021 F12.20 Cannabis dependence, uncomplicat ed Amara Velazquez [facility], CASAC 02/05/2021 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, in remission Alec Velazquez LM, CASAC 02/04/2021 G43.009 Migraine without aur a, [...] episod e mixed, unspecified EM Muñiz, CASAC 01/01/2021 F12.20 Cannabis dependence, uncomplicat ed EM Muñiz, CASAC 01/01/2021 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, in remission EM Greco, CASAC 12/24/2020 M62.830 Muscle spasm of back Yoni Medel, NEETA 12/21/2020 G43.009 Migraine without aur a, not intractable, without status migrainosus Juliana Hogan PA-C 12/13/2020 R05 Cough Chiki Baldwin NP Plan of Treatment Future Appointment(s):* 07/02/2021 3:00 pm - EM Mu[facility]iz, [facility]A [facility] * 06/25/2021 3:00 pm - EM Muñiz, DIANDRA at [facility] * 06/18/2021 2:00 pm - EM Muñiz, DIANDRA at [facility] * 06/12/2021 2:00 pm - EM Muñiz, DIANDRA at [facility] * 06/18/2021 11:00 am - Narinder Lima MD at [facility] * 06/11/2021 5:00 pm - EM Muñiz, DIANDRA at [facility] * 06/17/2021 1:40 pm - Ry Rodriguez PA-C at [facility] * 08/14/2021 1:00 pm - Narinder Lima MD at [facility] * 06/10/2021 2:40 pm - Ry Rodriguez PA-C at [facility] 12/10/2019 - IRIS Dooley* W19.xxxA Accidental fall* [...]
--- OUTSIDE RECORDS SUMMARY | 2021-06-21 20:57 | CCD | Continuity of Care Document ---
Author Author Houston LIMA M.D. Organization Unknown Address [address] [place] [id number] Phone [phone] Care Team Providers Care Battery Checker Name Role Phone Narinder Lima M.D. AUTM [phone] [facility] [address] [facility] AUTM [facility] AUTM [facility] AUTM Problems Active [...] Garret Donohue 08/09/2020 Vitamin D (Ergocalciferol) 1.25mg (25485 Ut) Capsules 1 cap by mouth every [...] CPT Code Status Date Vaccine Lot # [id number] Given 05/13/2020 Influenza (>= 6 Months) P.F. Vaccine [id number] Given 06/14/2018 Influenza (>= 6 Months) P.F. [...] H/L Range Note Covid And Flu 05/30/2021 [facility] Influenza A Amplification NEGATIVE Normal Negative 1 Influenza B Amplification NEGATIVE Normal Negative 2 RSV Amplification NEGATIVE Normal Negative 3 Sars Covid-19 Amplification NEGATIVE Normal Negative 4 Laboratory test finding 05/30/2021 [facility] [place] Level 0.34 mEq/L Low 0.60-1.20 5 Liver Profile 05/30/2021 [facility] Ast/Sgot 19 U/L Normal 7-37 Alt/SGPT 23 U/L Normal 12-78 Alkaline Phosphatase 83 U/L Normal 45-117 Bilirubin,Total 0.7 mg/dL Normal 0.2-1.0 Bilirubin,Direct 0.2 mg/dL Normal 0.0-0.2 Total Protein 8.1 GM/DL Normal 6.4-8.2 Albumin 4.4 GM/DL Normal 3.2-5.2 Albumin/Globulin Ratio 1.2 Normal 1.2-2.2 Basic Metabolic Profile 05/30/2021 [facility] Glucose, Fasting 96 mg/dL Normal 70-100 [...] mg/dL High 8.5-10.1 Laboratory test finding 05/30/2021 [facility] Ethyl Alcohol (Ethanol) < 0.003 % Normal 0.000-0.010 7 Salicylate Level 5.4 mg/dL Normal 5.0-30.0 8 Acetaminophen Level < 2.0 UG/ML Low 10.0-30.0 9 Thyroid Stimulating Hormone 0.283 uIU/ML Low 0.358-3.740 10 HCG Serum Qualitative NEGATIVE Normal Negative 11 Drug Eval Toxicology ED Only 05/30/2021 [facility] [place] Amphetamines Level Urine NEGATIVE Normal Negative Barbiturates Urine NEGATIVE Normal Negative Benzodiazepines Urine NEGATIVE Normal Negative Cannabinoids Urine POSITIVE High Negative Cocaine Metabolite Urine POSITIVE High Negative Methadone Urine NEGATIVE Normal Negative Opiates Urine NEGATIVE Normal Negative Phencyclidine Urine NEGATIVE Normal Negative 12 Complete Blood Count 05/30/2021 [facility] White Blood Count 17.0 10 High [...] % Normal 0-0 Comprehensive Metabolic Panel 05/16/2021 [facility] Comprehensive Metabo (SEE NOTE) 13, 14 Sodium [...] GFR >60 mL/min 15 HCV Fibrosure 05/16/2021 [facility] Fibrosis Score 0.02 NA 0.00-0.21 Fibrosis [...] WILL FOLLOW Herpes I&II Igm AB 05/16/2021 [facility] HSV, IgM I/II Combination <0.91 Ratio 0.00-0.90 21 Herpes Simplex Virus I/II Igg 05/16/2021 [facility] HSV 1 IgG, Type Spec <0.91 index 0.00-0.90 22 HSV 2 IgG, Type Spec 2.06 index High 0.00-0.90 23 HSV-2 IgG SupplementalTest Positive Abnormal Negative 2 4 HIV Panel 05/16/2021 [facility] HIV Screen 4thGeneration wRfx Non Reactive Non Reacti ve Laboratory test finding 05/16/2021 [facility] Syphilis NON-REACTIVE Normal:Non Reactive Hepatitis B Surf Antigen NONREACTIVE Normal:Non React stephanie Hep C Antibody With Reflex Quant PCR <0.1 s/coratio 0. 0-0.9 Laboratory test finding 05/16/2021 [facility] Ferritin [place] 47.6 ng/mL 3.0 - 105 Iron Binding Capacity 05/16/2021 [facility] Iron 45 g/dL 42 - 135 Uibc 215 g/dL 112 - 347 Tibc 260 g/dL 250 - 450 Iron Sat 17 % Laboratory test finding 05/16/2021 [facility] Vitamin D (25-Hydroxy) 23 NG/ML 25 CBC W/Automated Diff 05/16/2021 [facility] CBC W/Automated Diff (SEE NOTE) 26 [...] Lymph 24.8 % Low 25.0 - 40.0 [place] 6.6 % 3.0 - 8.0 Eos 1.4 % 0.0 - 7.0 Baso 0.2 % 0.0 - 2.5 %Ig 0.3 % High 0.0 - 0.0 %NRBC 0.0 % 0.0 - 0.0 #Neut 8.36 10^3/uL High 2.00 - 6.90 #Lymph 3.12 10^3/uL 0.60 - 3.40 #[place] 0.83 10^3/uL 0.00 - 0.90 #Eos 0.18 10^3/uL 0.00 - 0.70 #Baso 0.03 10^3/uL 0.00 - 0.20 #Ig 0.04 10^3/uL 0.00 - 0.10 #NRBC 0.00 10^3/uL 0.00 - 0.00 Manual Diff NOT INDICATED RBC Morph NOT INDICATED Laboratory test finding 05/16/2021 [facility] Vitamin B12 Serum 353 pg/mL 232 - 1245 Covid-19 05/12/2021 [facility] Sars-CoV-2, Bev Not Detected Not Detected 27, 28 Sars-CoV-2, Bev 2 Day Tat Performed Cuture Urine 05/07/2021 [facility] Culture Urine (SEE NOTE) 29, 30 Ua With Reflex To Ua Culture 05/07/2021 [facility] spital Ua Reflex To Ua Cult (SEE NOTE) 31 Source R Color yellow Normal: Yellow Clarity hazy Normal: Clear Spec [place] 1.020 1.001 - 1.030 pH 6 5 [...] Yeast Few Abnormal 32 Chlamydia GC/Trich 05/07/2021 [facility] Source: Genital 33 Chlamydia by Bev Negative Negative Gonococcus by Bev Negative Negative Trich vag by Bev Negative Negative Bacterial Vaginosis 05/07/2021 [facility] Source: Genital Ladi species Positive Abnormal Negative Gardnerella vaginalis Positive Abnormal Negative Trichomonas vaginalis Negative Negative Chlamydia/GC 05/07/2021 [facility] Chlam Trach QL Dna Probe <pending> GC By Dna Cervical Mucus <pending> Affirm Vaginitis Panel 05/07/2021 [facility] Z#Other Observations <pending> Covid-19 04/13/2021 [facility] Sars-CoV-2, Bev Not Detected Not Detected 34 Sars-CoV-2, Bev 2 Day Tat Performed Laboratory test finding 03/26/2021 [facility] Ferritin 73 NG/ML Normal 8-252 35 Total Iron Binding Capacit 03/26/2021 [facility] Iron (Fe) 78 g/dL Normal 50-170 Total Iron Binding Capacity 256 g/dL Normal 250-450 Percent Saturation 30.5 % Normal 13.2-45.0 Comprehensive Metabolic Profil 03/26/2021 [facility] Glucose, Fasting 109 mg/dL High 70-100 [...] 1.2 Normal 1.2-2.2 CBC With Differential 03/26/2021 [facility] White Blood Count 9.9 10 Normal [...] 36.0-66.0 Lymph % 27.1 % Normal 24.0-44.0 [place] % 6.4 % Normal 2.0-8.0 Eos % 1.5 % Normal 0.0-3.0 Baso % 0.3 % Normal 0.0-1.0 Immature Granulocyte % 0.4 % Normal 0-3.0 Nucleated Red Blood Cell % 0.0 % Normal 0-0 Neutrophils # 6.4 10 Normal 1.5-8.5 Lymph # 2.7 10 Normal 1.5-5.0 [place] # 0.6 10 Normal 0.0-0.8 Eos # 0.2 10 Normal 0.0-0.5 Baso # 0.0 10 Normal 0.0-0.2 Covid-19 02/07/2021 [facility] Sars-CoV-2, Bev Not Detected Not Detected 37 Sars-CoV-2, Bev 2 Day Tat Performed Laboratory test finding 02/04/2021 [facility] Ferritin [place] 63.5 ng/mL 3.0 - 105 38 Iron Binding Capacity 02/04/2021 [facility] Iron 58 g/dL 42 - 135 Uibc 173 g/dL 112 - 347 Tibc 231 g/dL Low 250 - 450 Iron Sat 25 % CBC W/Automated Diff 02/04/2021 [facility] CBC W/Automated Diff (SEE NOTE) 39 [...] 80.0 Lymph 34.6 % 25.0 - 40.0 [place] 7.5 % 3.0 - 8.0 Eos 2.8 % 0.0 - 7.0 Baso 0.4 % 0.0 - 2.5 %Ig 0.4 % High 0.0 - 0.0 %NRBC 0.0 % 0.0 - 0.0 #Neut 5.48 10^3/uL 2.00 - 6.90 #Lymph 3.49 10^3/uL High 0.60 - 3.40 #[place] 0.76 10^3/uL 0.00 - 0.90 #Eos 0.28 10^3/uL 0.00 - 0.70 #Baso 0.04 10^3/uL 0.00 - 0.20 #Ig 0.04 10^3/uL 0.00 - 0.10 #NRBC 0.00 10^3/uL 0.00 - 0.00 Manual Diff NOT INDICATED RBC Morph NOT INDICATED Laboratory test finding 02/04/2021 [facility] l Vitamin B12 Serum 204 pg/mL Low 232 - 1245 Vitamin D (25-Hydroxy) 19 NG/ML 40 Comprehensive Metabolic Panel 02/04/2021 [facility] Comprehensive Metabo (SEE NOTE) 41 [...] >60 mL/min 42 Laboratory test finding 01/27/2021 [facility] T4 - Free 1.27 ng/dL 0.93 - 1.70 TSH Highly Sensitive 0.34 uIU/mL Low 0.47 - 5.01 Inhouse-Influenza A&B Rna Prob 12/13/2020 In Office Influenza Virus A QL PCR negative Negative Influenza Virus B QL PCR negative Negative Laboratory test finding 12/13/2020 [facility] Coronavirus Covid-19 Not Detected Not Detected [...] pathogens. DISCLAIMER: Testing was performed using the [employer] SARS-CoV-2 test. This test was developed and its performance characteristics determined by [employer]. This test has not been FDA cleared [...] Little GFR Left ESRD GFR <15 on CSO 7 note:<nlbl:demographic_chang ed> 8 note:<nlbl:demographic_chang ed> 9 note:<nlbl:demographic_[facility] ed> 10 note:<nlbl:demographic_[facility] ed> 11 note:<nlbl:demographic_[facility] ed> 12 ALL PRESUMPTIVE POSITIVE FINDINGS [...] developed and its performance characteristics determined by [employer]. Nucleic acid amplification tests include RT-PCR and [...] this assay. 29 .~.~R30.0 30 _CULTURE URINE_ ^$[id number] ^^[id number] $$740710 ^^712162 $$390664 $$183713 $$388018 $$870010 $$389066 $$535972 $$923573 $$819904 $$886061 $$616630 $$597322 $$518422 $$923282 $$430938 $$583632 $$407067 $$588106 $$757566 $$807478 $$608280 $$509899 $$951111 $$425979 ^^110997 $$529883 $$146107 $$916583 -- Continued on next page -- Patient: POORNIMA Denney Order: Page 2 Culture: CULTURE URINE Status: Final -- Continued on next page -- Patient: POORNIMA Denney Order: Page 2 Culture: CULTURE URINE Status: Prelim -- Continued on next page -- Patient: POORNIMA Denney Order: Page 2 Culture: CULTURE URINE Status: Prelim $$[id number] $$[id number] REPORTED DATE/TIME: 05/14/2021 12:06 Culture: CULTURE URINE [...] coli Flag: A Patient: POORNIMA Denney Order: [id number] Page 3 Culture: CULTURE URINE Status: Final [...] S S . . . . . .23882-1 Gentamicin S S . . . . . .267-5 Imipenem S S . . . . . .279-0 Levofloxacin S S . . . . . .22659-6 Meropenem S S . . . . [...] by: [facility] #: [id number] [address] [id number] [facility] [id number] Sports Intern : Armando Lang MD NPI #: Insights Strategist : 05/12/[email or web address].SENT REF 05/13/21.1623.XMT.SENT REF 05/14/21.1406.XMT.SENT REF 31 URINALYSIS 32 HYPAE YEAST 33 {SOURCE: Genital 34 This nucleic acid amplificat ion test was developed and its performance characteristics determined by [employer]. Nucleic acid amplification tests include RT-PCR and [...] (not detected) result in this assay. 35 note:<nlbl:[facility]_chang ed> 36 Units are mL/min/1.73 m2 Chronic Kidney Disease Staging per NKF: Stage I & II GFR >=60 Normal to Mildly Decreased Stage III GFR 30-59 Moderately Decreased Stage IV GFR 15-29 Severely Decreased Stage V GFR <15 Very Little GFR Left ESRD GFR <15 on CSO 37 This nucleic acid amplificat ion test was developed and its performance characteristics determined by [employer]. Nucleic acid amplification tests include RT-PCR and [...] developed and its performance characteristics determined by [employer]. Nucleic acid amplification tests include RT-PCR and [...] assay. Procedures Date Code Description Status 05/07/2021 09265 Office/Outpatient Established Lo w MDM 20-29 Min Completed 05/07/2021 42602 Office/Outpatient New Low MDM 30 -44 Minutes Completed 05/07/2021 50338 Admin Patient Focused Health Ris k Assessment Instrument Completed 05/07/2021 44432 Brief Emotional/Beha v Assessment W/ Scoring Doc Per Standard Inst Completed 04/30/2021 31487 Office/Outpatient Established Mo d MDM 30-39 Min Completed 04/18/2021 79111 Office Visit New Level 1 Complet ed 04/13/2021 93362 Office/Outpatient Established Lo w MDM 20-29 Min Completed 04/13/2021 53660 Pulse Oximetry Single Determinat ion Completed 02/04/2021 87303 Office/Outpatient Established Lo w MDM 20-29 Min Completed 01/27/2021 45239 Office/Outpatient Established Mo d MDM 30-39 Min Completed 12/24/2020 41671 Office/Outpatient Established Lo w MDM 20-29 Min Completed 12/21/2020 93180 Office/Outpatient Established Lo w MDM 20-29 Min Completed 12/13/2020 49631 Office/Outpatient Established Lo w MDM 20-29 Min [...] dependence, uncomplicat ed Amara Velazquez [facility], [facility] 05/14/2021 F31.60 Bipolar disorder, [...] gastroenteritis and c olitis, unspecified Emmie Baker, [facility] 04/11/2021 F31.60 Bipolar disorder, current episod e mixed, unspecified Amara Velazquez LM, [facility] 04/11/2021 F12.20 Cannabis dependence, uncomplicat ed Amara Velazquez [facility], [facility] 04/11/2021 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, in remission Alec Velazquez LM, [facility] 03/12/2021 F31.60 Bipolar disorder, current episod e mixed, unspecified Amara Velazquez LM, [facility] 03/12/2021 F12.20 Cannabis dependence, uncomplicat ed Amara Velazquez [facility], [facility] 03/12/2021 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, in remission Alec Velazquez LM, [facility] 02/05/2021 F31.60 Bipolar disorder, current episod e mixed, unspecified Amara Velazquez [facility], [facility] 02/05/2021 F12.20 Cannabis dependence, uncomplicat ed Amara Velazquez [facility] 02/05/2021 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, [...] Appointment(s):* 07/02/2021 3:00 pm - EM Muñiz, IDANDRA at [facility] * 06/25/2021 3:00 pm - EM Muñiz, DIANDRA at [facility] * 06/18/2021 2:00 pm - EM Muñiz, DIANDRA at [facility] * 06/12/2021 2:00 pm - EM Muñiz, DIANDRA at [facility] * 06/18/2021 11:00 am - Narinder Lima MD at [facility] * 06/11/2021 5:00 pm - EM Muñiz, DIANDRA at [facility] * 06/17/2021 1:40 pm - Ry Rodriguez PA-C at [facility] * 08/14/2021 1:00 pm - Narinder Lima MD at [facility] Practice * 06/10/2021 2:40 pm - Ry Rodriguez PA-C at [facility] 12/10/2019 - IRIS Dooley* [id number] Accidental [...]
--- OUTSIDE RECORDS SUMMARY | 2021-06-21 20:57 | CCD | Continuity of Care Document ---
Author [facility] Organization Unknown Address [facility] [address] [place] [address] Phone [phone] Care Team Providers Care Content Development Manager Name Role Phone Narinder Lima M.D. AUTM [phone] [facility] AUTM Problems Active [...] Garret Donohue 08/09/2020 Vitamin D (Ergocalciferol) 1.25mg (10868 Ut) Capsules 1 cap by mouth every [...] CPT Code Status Date Vaccine Lot # [id number] Given 05/13/2020 Influenza (>= 6 Months) P.F. Vaccine [id number] Given 06/14/2018 Influenza (>= 6 Months) P.F. [...] H/L Range Note Covid And Flu 05/30/2021 [facility] Influenza A Amplification NEGATIVE Normal Negative 1 Influenza B Amplification NEGATIVE Normal Negative 2 RSV Amplification NEGATIVE Normal Negative 3 Sars Covid-19 Amplification NEGATIVE Normal Negative 4 Laboratory test finding 05/30/2021 [facility] Clarita Level 0.34 mEq/L Low 0.60-1.20 5 Liver Profile 05/30/2021 [facility] Ast/Sgot 19 U/L Normal 7-37 Alt/SGPT 23 U/L Normal 12-78 Alkaline Phosphatase 83 U/L Normal 45-117 Bilirubin,Total 0.7 mg/dL Normal 0.2-1.0 Bilirubin,Direct 0.2 mg/dL Normal 0.0-0.2 Total Protein 8.1 GM/DL Normal 6.4-8.2 Albumin 4.4 GM/DL Normal 3.2-5.2 Albumin/Globulin Ratio 1.2 Normal 1.2-2.2 Basic Metabolic Profile 05/30/2021 [facility] Glucose, Fasting 96 mg/dL Normal 70-100 Blood [...] mg/dL High 8.5-10.1 Laboratory test finding 05/30/2021 [facility] Ethyl Alcohol (Ethanol) < 0.003 % Normal 0.000-0.010 7 Salicylate Level 5.4 mg/dL Normal 5.0-30.0 8 Acetaminophen Level < 2.0 UG/ML Low 10.0-30.0 9 Thyroid Stimulating Hormone 0.283 uIU/ML Low 0.358-3.740 10 HCG Serum Qualitative NEGATIVE Normal Negative 11 Drug Eval Toxicology ED Only 05/30/2021 [facility] Ronald Amphetamines Level Urine NEGATIVE Normal Negative Barbiturates Urine NEGATIVE Normal Negative Benzodiazepines Urine NEGATIVE Normal Negative Cannabinoids Urine POSITIVE High Negative Cocaine Metabolite Urine POSITIVE High Negative Methadone Urine NEGATIVE Normal Negative Opiates Urine NEGATIVE Normal Negative Phencyclidine Urine NEGATIVE Normal Negative 12 Complete Blood Count 05/30/2021 [facility] White Blood Count 17.0 10 High 4.0-10.0 [...] % Normal 0-0 Comprehensive Metabolic Panel 05/16/2021 [facility] Comprehensive Metabo (SEE NOTE) 13, 14 [...] GFR >60 mL/min 15 HCV Fibrosure 05/16/2021 [facility] Fibrosis Score 0.02 NA 0.00-0.21 [...] WILL FOLLOW Herpes I&II Igm AB 05/16/2021 [facility] HSV, IgM I/II Combination <0.91 Ratio 0.00-0.90 21 Herpes Simplex Virus I/II Igg 05/16/2021 [facility] HSV 1 IgG, Type Spec <0.91 index 0.00-0.90 22 HSV 2 IgG, Type Spec 2.06 index High 0.00-0.90 23 HSV-2 IgG SupplementalTest Positive Abnormal Negative 2 4 HIV Panel 05/16/2021 [facility] HIV Screen 4thGeneration wRfx Non Reactive Non Reacti ve Laboratory test finding 05/16/2021 [facility] Syphilis NON-REACTIVE Normal:Non Reactive Hepatitis B Surf Antigen NONREACTIVE Normal:Non React stephanie Hep C Antibody With Reflex Quant PCR <0.1 s/coratio 0. 0-0.9 Laboratory test finding 05/16/2021 [facility] Ferritin Fallon 47.6 ng/mL 3.0 - 105 Iron Binding Capacity 05/16/2021 [facility] Iron 45 g/dL 42 - 135 Uibc 215 g/dL 112 - 347 Tibc 260 g/dL 250 - 450 Iron Sat 17 % Laboratory test finding 05/16/2021 [facility] Vitamin D (25-Hydroxy) 23 NG/ML 25 CBC W/Automated Diff 05/16/2021 [facility] CBC W/Automated Diff (SEE NOTE) [...] Lymph 24.8 % Low 25.0 - 40.0 [place] 6.6 % 3.0 - 8.0 Eos 1.4 % 0.0 - 7.0 Baso 0.2 % 0.0 - 2.5 %Ig 0.3 % High 0.0 - 0.0 %NRBC 0.0 % 0.0 - 0.0 #Neut 8.36 10^3/uL High 2.00 - 6.90 #Lymph 3.12 10^3/uL 0.60 - 3.40 #[place] 0.83 10^3/uL 0.00 - 0.90 #Eos 0.18 10^3/uL 0.00 - 0.70 #Baso 0.03 10^3/uL 0.00 - 0.20 #Ig 0.04 10^3/uL 0.00 - 0.10 #NRBC 0.00 10^3/uL 0.00 - 0.00 Manual Diff NOT INDICATED RBC Morph NOT INDICATED Laboratory test finding 05/16/2021 [facility] l Vitamin B12 Serum 353 pg/mL 232 - 1245 Covid-19 05/12/2021 [facility] Sars-CoV-2, Bev Not Detected Not Detected 27, 28 Sars-CoV-2, Bev 2 Day Tat Performed Cuture Urine 05/07/2021 [facility] Culture Urine (SEE NOTE) 29, 30 Ua With Reflex To Ua Culture 05/07/[address] [facility] spital Ua Reflex To Ua Cult (SEE NOTE) 31 Source R Color yellow Normal: Yellow Clarity hazy Normal: Clear Spec [place] 1.020 1.001 - 1.030 pH 6 5 [...] Yeast Few Abnormal 32 Chlamydia GC/Trich 05/07/2021 [facility] Source: Genital 33 Chlamydia by Bev Negative Negative Gonococcus by Bev Negative Negative Trich vag by Bev Negative Negative Bacterial Vaginosis 05/07/2021 [facility] Source: Genital Ladi species Positive Abnormal Negative Gardnerella vaginalis Positive Abnormal Negative Trichomonas vaginalis Negative Negative Chlamydia/GC 05/07/2021 [facility] Chlam Trach QL Dna Probe <pending> GC By Dna Cervical Mucus <pending> Affirm Vaginitis Panel 05/07/2021 [facility] Z#Other Observations <pending> Covid-19 04/13/2021 [facility] Sars-CoV-2, Bev Not Detected Not Detected 34 Sars-CoV-2, Bev 2 Day Tat Performed Laboratory test finding 03/26/2021 [facility] Ferritin 73 NG/ML Normal 8-252 35 Total Iron Binding Capacit 03/26/2021 [facility] Iron (Fe) 78 g/dL Normal 50-170 Total Iron Binding Capacity 256 g/dL Normal 250-450 Percent Saturation 30.5 % Normal 13.2-45.0 Comprehensive Metabolic Profil 03/26/2021 [facility] Glucose, Fasting 109 mg/dL High 70-100 Blood [...] 1.2 Normal 1.2-2.2 CBC With Differential 03/26/2021 [facility] White Blood Count 9.9 10 Normal 4.0-10.0 [...] 36.0-66.0 Lymph % 27.1 % Normal 24.0-44.0 [place] % 6.4 % Normal 2.0-8.0 Eos % 1.5 % Normal 0.0-3.0 Baso % 0.3 % Normal 0.0-1.0 Immature Granulocyte % 0.4 % Normal 0-3.0 Nucleated Red Blood Cell % 0.0 % Normal 0-0 Neutrophils # 6.4 10 Normal 1.5-8.5 Lymph # 2.7 10 Normal 1.5-5.0 [place] # 0.6 10 Normal 0.0-0.8 Eos # 0.2 10 Normal 0.0-0.5 Baso # 0.0 10 Normal 0.0-0.2 Covid-19 02/07/2021 [facility] Sars-CoV-2, Bev Not Detected Not Detected 37 Sars-CoV-2, Bev 2 Day Tat Performed Laboratory test finding 02/04/2021 [facility] l Ferritin Fallon 63.5 ng/mL 3.0 - 105 38 Iron Binding Capacity 02/04/2021 [facility] Iron 58 g/dL 42 - 135 Uibc 173 g/dL 112 - 347 Tibc 231 g/dL Low 250 - 450 Iron Sat 25 % CBC W/Automated Diff 02/04/2021 [facility] CBC W/Automated Diff (SEE NOTE) [...] 80.0 Lymph 34.6 % 25.0 - 40.0 [place] 7.5 % 3.0 - 8.0 Eos 2.8 % 0.0 - 7.0 Baso 0.4 % 0.0 - 2.5 %Ig 0.4 % High 0.0 - 0.0 %NRBC 0.0 % 0.0 - 0.0 #Neut 5.48 10^3/uL 2.00 - 6.90 #Lymph 3.49 10^3/uL High 0.60 - 3.40 #[place] 0.76 10^3/uL 0.00 - 0.90 #Eos 0.28 10^3/uL 0.00 - 0.70 #Baso 0.04 10^3/uL 0.00 - 0.20 #Ig 0.04 10^3/uL 0.00 - 0.10 #NRBC 0.00 10^3/uL 0.00 - 0.00 Manual Diff NOT INDICATED RBC Morph NOT INDICATED Laboratory test finding 02/04/2021 [facility] l Vitamin B12 Serum 204 pg/mL Low 232 - 1245 Vitamin D (25-Hydroxy) 19 NG/ML 40 Comprehensive Metabolic Panel 02/04/2021 [facility] Comprehensive Metabo (SEE NOTE) 41 [...] >60 mL/min 42 Laboratory test finding 01/27/2021 [facility] T4 - Free 1.27 ng/dL 0.93 - 1.70 TSH Highly Sensitive 0.34 uIU/mL Low 0.47 - 5.01 Inhouse-Influenza A&B Rna Prob 12/13/2020 In Office Influenza Virus A QL PCR negative Negative Influenza Virus B QL PCR negative Negative Laboratory test finding 12/13/2020 [facility] Coronavirus Covid-19 Not Detected Not Detected [...] pathogens. DISCLAIMER: Testing was performed using the [employer] SARS-CoV-2 test. This test was developed and its performance characteristics determined by [employer]. This test has not been FDA cleared [...] Little GFR Left ESRD GFR <15 on FILM PAINTER 7 note:<nlbl:demographic_chang ed> 8 note:<nlbl:demographic_chang ed> 9 note:<nlbl:demographic_[facility] ed> 10 note:<nlbl:demographic_[facility] ed> 11 note:<nlbl:demographic_[facility] ed> 12 ALL PRESUMPTIVE POSITIVE FINDINGS [...] developed and its performance characteristics determined by [employer]. Nucleic acid amplification tests include RT-PCR and [...] this assay. 29 .~.~R30.0 30 _CULTURE URINE_ ^$[id number] ^^239200 $$059753 ^^349122 $$043881 $$625952 $$365010 $$229112 $$638986 $$331803 $$799623 $$952194 $$402751 $$454153 $$920097 $$438116 $$091308 $$830732 $$090271 $$207629 $$823113 $$340937 $$766556 $$751624 $$687505 $$611250 $$699333 ^^045673 $$683422 $$577723 $$565406 -- Continued on next page -- Patient: POORNIMA Denney Order: [id number] Page 2 Culture: CULTURE URINE Status: Final -- Continued on next page -- Patient: POORNIMA Denney Order: [id number] Page 2 Culture: CULTURE URINE Status: Prelim -- Continued on next page -- Patient: POORNIMA Denney Order: [id number] Page 2 Culture: CULTURE URINE Status: Prelim $$[id number] $$[id number] REPORTED DATE/TIME: 05/14/2021 12:06 Culture: CULTURE URINE [...] coli Flag: A Patient: POORNIMA Denney Order: [id number] Page 3 Culture: CULTURE URINE Status: Final [...] S S . . . . . .59650-8 Gentamicin S S . . . . . .267-5 Imipenem S S . . . . . .279-0 Levofloxacin S S . . . . . .43968-5 Meropenem S S . . . . . .6652-2 Nitrofurantoin S S . . . . . .363-2 Piperacillin/Tazobactam S S . . . . . .412-7 Tetracycline S S . . . . . .496-0 Tobramycin S S . . . . . .508-2 Trimethoprim/Sulfa S S . . . . . .516-5 P1 Test performed by: [facility] #: [id number] [facility] [address] [id number] [facility] [address] Animal Caregiver : Armando Lang MD NPI #: Piano Stringer : 05/12/[email or web address].XMT.SENT REF 05/13/21.1623.XMT.SENT REF 05/14/21.1406.XMT.SENT REF 31 URINALYSIS 32 HYPAE YEAST 33 {SOURCE: Genital 34 This nucleic acid amplificat ion test was developed and its performance characteristics determined by [employer]. Nucleic acid amplification tests include RT-PCR and [...] (not detected) result in this assay. 35 note:<nlbl:[facility]_chang ed> 36 Units are mL/min/1.73 m2 Chronic Kidney Disease Staging per NKF: Stage I & II GFR >=60 Normal to Mildly Decreased Stage III GFR 30-59 Moderately Decreased Stage IV GFR 15-29 Severely Decreased Stage V GFR <15 Very Little GFR Left ESRD GFR <15 on FILM PAINTER 37 This nucleic acid amplificat ion test was developed and its performance characteristics determined by [employer]. Nucleic acid amplification tests include RT-PCR and [...] developed and its performance characteristics determined by [employer]. Nucleic acid amplification tests include RT-PCR and [...] assay. Procedures Date Code Description Status 05/07/2021 15664 Office/Outpatient Established Lo w MDM 20-29 Min Completed 05/07/2021 79827 Office/Outpatient New Low MDM 30 -44 Minutes Completed 05/07/2021 43024 Admin Patient Focused Health Ris k Assessment Instrument Completed 05/07/2021 70056 Brief Emotional/Beha v Assessment W/ Scoring Doc Per Standard Inst Completed 04/30/2021 17407 Office/Outpatient Established Mo d MDM 30-39 Min Completed 04/18/2021 78809 Office Visit New Level 1 Complet ed 04/13/2021 27170 Office/Outpatient Established Lo w MDM 20-29 Min Completed 04/13/2021 77031 Pulse Oximetry Single Determinat ion Completed 02/04/2021 74401 Office/Outpatient Established Lo w MDM 20-29 Min Completed 01/27/2021 95458 Office/Outpatient Established Mo d MDM 30-39 Min Completed 12/24/2020 84111 Office/Outpatient Established Lo w MDM 20-29 Min Completed 12/21/2020 08203 Office/Outpatient Established Lo w MDM 20-29 Min Completed 12/13/2020 12688 Office/Outpatient Established Lo w MDM 20-29 Min [...] F12.20 Cannabis dependence, uncomplicat ed Amara [facility] 05/14/2021 F31.60 Bipolar disorder, [...] gastroenteritis and c olitis, unspecified Emmie Baker, [facility] 04/11/2021 F31.60 Bipolar disorder, current episod e mixed, unspecified Amara Velazquez LM, [facility] 04/11/2021 F12.20 Cannabis dependence, uncomplicat ed Am[facility]az[facility] 04/11/2021 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, in remission Alec Velazquez LM, [facility] 03/12/2021 F31.60 Bipolar disorder, current episod e mixed, unspecified Amara Velazquez LM, [facility] 03/12/2021 F12.20 Cannabis dependence, uncomplicat ed Amara Velazquez LM, [facility] 03/12/2021 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, in remission Alec Velazquez LM, [facility] 02/05/2021 F31.60 Bipolar disorder, current episod e mixed, unspecified Amara Velazquez [facility] 02/05/2021 F12.20 Cannabis dependence, uncomplicat ed Amara Velazquez [facility] 02/05/2021 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, [...] M62.830 Muscle spasm of back Yoni Medel, [employer] 12/21/2020 G43.009 Migraine without aur a, not intractable, without status migrainosus Juliana Hogan PA-C 12/13/2020 R05 Cough Chiki Baldwin , [employer] 12/04/2020 F31.60 Bipolar disorder, current episod e mixed, unspecified EM Muñiz, [facility] 12/04/2020 F12.20 Cannabis dependence, uncomplicat ed EM Muñiz, [facility] 12/04/2020 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, in remission EM Greco, [facility] Plan of Treatment Future Appointment(s):* 07/02/2021 3:00 pm - EM Muñiz [facility] * 06/25/2021 3:00 pm - EM Muñiz [facility] at [facility] * 06/18/2021 2:00 pm - EM Muñiz [facility] at [facility] * 06/12/2021 2:00 pm - EM Muñiz [facility] at [facility] * 06/18/2021 11:00 am - Narinder Lima MD at [facility] * 06/11/2021 5:00 pm - Amara Velazquez LM, [facility] at [facility] * 06/17/2021 1:40 pm - Ry Rodriguez PA-C at Behavior[facility] * 08/14/2021 1:00 pm - Narinder Lima MD at [facility] * 06/10/2021 2:40 pm - Ry Rodriguez PA-C at [facility] 04/18/2021 - Antwan Ragland PA-C* J06.9 Acute upper respiratory infection, unspecified Functional Status Description No Information Available Mental Status Description No Information Available Referrals Description No Information Available
--- OUTSIDE RECORDS SUMMARY | 2021-06-21 20:58 | CCD | Continuity of Care Document ---
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 AUTM [phone] [facility] [address] [facility] AUTM [facility] AUTM [phone] [facility] AUTM [phone] Problems Active Problems Provider Date Migraine with [...] Garret Donohue 08/09/2020 Vitamin D (Ergocalciferol) 1.25mg (41092 Ut) Capsules 1 cap by mouth every [...] CPT Code Status Date Vaccine Lot # [id number] Given 05/13/2020 Influenza (>= 6 Months) P.F. Vaccine [id number] Given 06/14/2018 Influenza (>= 6 Months) P.F. [...] Date Facility Test Result H/L Range Note CBC W/Automated Diff 05/16/2021 [facility] CBC W/Automated Diff (SEE NOTE) 1, 2 WBC 12.6 10^3/uL High 4.2 - 11.0 [...] Lymph 24.8 % Low 25.0 - 40.0 Erath 6.6 % 3.0 - 8.0 Eos 1.4 % 0.0 - 7.0 Baso 0.2 % 0.0 - 2.5 %Ig 0.3 % High 0.0 - 0.0 %NRBC 0.0 % 0.0 - 0.0 #Neut 8.36 10^3/uL High 2.00 - 6.90 #Lymph 3.12 10^3/uL 0.60 - 3.40 #Erath 0.83 10^3/uL 0.00 - 0.90 #Eos 0.18 10^3/uL 0.00 - 0.70 #Baso 0.03 10^3/uL 0.00 - 0.20 #Ig 0.04 10^3/uL 0.00 - 0.10 #NRBC 0.00 10^3/uL 0.00 - 0.00 Manual Diff NOT INDICATED RBC Morph NOT INDICATED Laboratory test finding 05/16/2021 [facility] Vitamin D (25-Hydroxy) 23 NG/ML 3 Iron Binding Capacity 05/16/2021 [facility] Iron 45 g/dL 42 - 135 Uibc 215 g/dL 112 - 347 Tibc 260 g/dL 250 - 450 Iron Sat 17 % Laboratory test finding 05/16/2021 [facility] Ferritin Fallon 47.6 ng/mL 3.0 - 105 Comprehensive Metabolic Panel 05/16/2021 [facility] Comprehensive Metabo (SEE NOTE) 4 Sodium 138 mEq/L 134 - 153 Potassium [...] >60 mL/min Afr Amer GFR >60 mL/min 5 Laboratory test finding 05/16/2021 [facility] Syphilis NON-REACTIVE Normal:Non Reactive Hepatitis B Surf Antigen NONREACTIVE Normal:Non React stephanie Hep C Antibody With Reflex Quant PCR <0.1 s/coratio 0. 0-0.9 HIV Panel 05/16/2021 [facility] HIV Screen 4thGeneration wRfx Non Reactive Non Reacti ve Herpes Simplex Virus I/II Igg 05/16/2021 [facility] HSV 1 IgG, Type Spec <0.91 index 0.00-0.90 6 HSV 2 IgG, Type Spec 2.06 index High 0.00-0.90 7 HSV-2 IgG SupplementalTest Positive Abnormal Negative 8 Herpes I&II Igm AB 05/16/2021 [facility] HSV, IgM I/II Combination <0.91 Ratio 0.00-0.90 9 Laboratory test finding 05/16/2021 [facility] Vitamin B12 Serum 353 pg/mL 232 - 1245 Covid-19 05/12/2021 [facility] Sars-CoV-2, Bev Not Detected Not Detected 10, 11 Sars-CoV-2, Bev 2 Day Tat Performed Bacterial Vaginosis 05/07/2021 [facility] Source: Genital 12 Ladi species Positive Abnormal Negative Gardnerella vaginalis Positive Abnormal Negative Trichomonas vaginalis Negative Negative Cuture Urine 05/07/2021 [facility] Culture Urine (SEE NOTE) 13, 14 Ua With Reflex To Ua Culture 05/07/2021 [facility] spital Ua Reflex To Ua Cult (SEE NOTE) 15 Source R Color yellow Normal: Yellow Clarity hazy Normal: Clear Spec [place] 1.020 1.001 - 1.030 pH 6 5 [...] 1+ Normal: None Seen Yeast Few Abnormal 16 Chlamydia GC/Trich 05/07/2021 [facility] Source: Genital 17 Chlamydia by Bev Negative Negative Gonococcus by Bev Negative Negative Trich vag by Bev Negative Negative Chlamydia/GC 05/07/2021 [facility] Chlam Trach QL Dna Probe <pending> GC By Dna Cervical Mucus <pending> Affirm Vaginitis Panel 05/07/2021 [facility] Z#Other Observations <pending> Covid-19 04/13/2021 [facility] Sars-CoV-2, Bev Not Detected Not Detected 18 Sars-CoV-2, Bev 2 Day Tat Performed Laboratory test finding 03/26/2021 [facility] Ferritin 73 NG/ML Normal 8-252 19 Total Iron Binding Capacit 03/26/2021 [facility] Iron (Fe) 78 g/dL Normal 50-170 Total Iron Binding Capacity 256 g/dL Normal 250-450 Percent Saturation 30.5 % Normal 13.2-45.0 Comprehensive Metabolic Profil 03/26/2021 [facility] Glucose, Fasting 109 mg/dL High 70-100 Blood Urea Nitrogen 14 mg/dL Normal 7-18 Creatinine For GFR 0.66 mg/dL Normal 0.55-1.30 Glomerular Filtration Rate > 60.0 Normal >60 2 0 Sodium Level 141 mEq/L Normal 136-145 Potassium [...] 1.2 Normal 1.2-2.2 CBC With Differential 03/26/2021 [facility] White Blood Count 9.9 10 [...] 36.0-66.0 Lymph % 27.1 % Normal 24.0-44.0 Erath % 6.4 % Normal 2.0-8.0 Eos % 1.5 % Normal 0.0-3.0 Baso % 0.3 % Normal 0.0-1.0 Immature Granulocyte % 0.4 % Normal 0-3.0 Nucleated Red Blood Cell % 0.0 % Normal 0-0 Neutrophils # 6.4 10 Normal 1.5-8.5 Lymph # 2.7 10 Normal 1.5-5.0 Erath # 0.6 10 Normal 0.0-0.8 Eos # 0.2 10 Normal 0.0-0.5 Baso # 0.0 10 Normal 0.0-0.2 Covid-19 02/07/2021 [facility] Sars-CoV-2, Bev Not Detected Not Detected 21 Sars-CoV-2, Bev 2 Day Tat Performed Laboratory test finding 02/04/2021 [facility] Ferritin Fallon 63.5 ng/mL 3.0 - 105 22 Iron Binding Capacity 02/04/2021 [facility] Iron 58 g/dL 42 - 135 Uibc 173 g/dL 112 - 347 Tibc 231 g/dL Low 250 - 450 Iron Sat 25 % CBC W/Automated Diff 02/04/2021 [facility] CBC W/Automated Diff (SEE NOTE) 23 WBC 10.1 10^3/uL 4.2 - 11.0 RBC [...] 80.0 Lymph 34.6 % 25.0 - 40.0 Erath 7.5 % 3.0 - 8.0 Eos 2.8 % 0.0 - 7.0 Baso 0.4 % 0.0 - 2.5 %Ig 0.4 % High 0.0 - 0.0 %NRBC 0.0 % 0.0 - 0.0 #Neut 5.48 10^3/uL 2.00 - 6.90 #Lymph 3.49 10^3/uL High 0.60 - 3.40 #Erath 0.76 10^3/uL 0.00 - 0.90 #Eos 0.28 10^3/uL 0.00 - 0.70 #Baso 0.04 10^3/uL 0.00 - 0.20 #Ig 0.04 10^3/uL 0.00 - 0.10 #NRBC 0.00 10^3/uL 0.00 - 0.00 Manual Diff NOT INDICATED RBC Morph NOT INDICATED Laboratory test finding 02/04/2021 [facility] Vitamin B12 Serum 204 pg/mL Low 232 - 1245 Vitamin D (25-Hydroxy) 19 NG/ML 24 Comprehensive Metabolic Panel 02/04/2021 [facility] Comprehensive Metabo (SEE NOTE) 25 Sodium 138 mEq/L 134 - 153 Potassium [...] >60 mL/min Afr Amer GFR >60 mL/min 26 Laboratory test finding 01/27/2021 [facility] T4 - Free 1.27 ng/dL 0.93 - 1.70 TSH Highly Sensitive 0.34 uIU/mL Low 0.47 - 5.01 Inhouse-Influenza A&B Rna Prob 12/13/2020 In Office Influenza Virus A QL PCR negative Negative Influenza Virus B QL PCR negative Negative Laboratory test finding 12/13/2020 [facility] Coronavirus Covid-19 Not Detected Not Detected 27 Covid-19 11/21/2020 [facility] Sars-CoV-2, Bev Not Detected Not Detected 28 Sars-CoV-2, Bev 2 Day Tat Performed 1 .~.~<DG1.3.1>D51.9</DG1.3.1><DG1.3.1>D51.9</DG1.3.1><DG1.3.1>E55.9</DG1.3.1><DG1 .3.1 Is patient fasting? N~.~.~<DG1.3.1>D51.9</DG1.3.1><DG1.3.1> D51.9</DG1.3.1><DG1.3.1>E55.9</DG1.3. .~.~<DG1.3.1>D51.9</DG1.3.1><DG1.3.1>D51.9</DG1.3.1><DG1.3.1>E55.9</DG1.3.1><DG1 .3.1 .~.~<DG1.3.1>D51.9& lt;/DG1.3.1><DG1.3.1>D51.9</DG1.3.1><DG1.3.1>E55.9</DG1.3.1><DG1.3.1 .~.~<DG1.3.1>D51.9</DG1.3.1><DG1.3.1>D51.9</DG1.3.1><DG1.3.1>E55.9</DG1.3.1><DG1 .3.1 2 COMPLETE BLOOD COUNT 3 VITAMIN-D(25HYDROXY) Deficiency: <=20 ng/ml Insufficiency: 21-29 ng/ml Preferred level: => 30 ng/ml 4 COMPREHENSIVE METABOLIC PANE L 5 Male GFR Interprentation 20-49 yrs >60 mL/min Normal 50-59 yrs >56 mL/min Normal 60-69 yrs >49 mL/min Normal 70-79yrs >42 mL/min Normal 80 and above >35 mL/min Normal Female GFR Interpretation 20-39 yrs >60 mL/min Normal 40-49 yrs >58 mL/min Normal 50-59 yrs >51 mL/min Normal 60-69 yrs >45 mL/min Normal 70-79 yrs >39 mL/min Normal 80 and above >32 mL/min Normal 6 Negative <0.91 Equivocal 0.91 - 1.09 Positive >1.09 Note: Negative indicates no antibodies detected to HSV-1. Equivocal may suggest early infection. If clinically appropriate, retest at later date. Positive indicates antibodies detected to HSV-1. 7 Negative <0.91 Equivocal 0.91 - 1.09 Positive >1.09 Note: Negative indicates no antibodies detected to HSV-2. Equivocal may suggest early infection. If clinically appropriate, retest at later date. Positive indicates antibodies detected to HSV-2. 8 HSV-2 IgG HSV-2 IgG Type Specific Confirmation Interpretation Positive/Equivocal Positive Indicates the presence of detectable IgG antibodies to HSV-2. Positive/Equivocal Negative Unable to confirm the presence of IgG antibodies to HSV-2. Recommend retesting in 2-4 weeks. 9 Negative <0.91 Equivocal 0.91 - 1.09 Positive >1.09 10 .~.~Z11.59 11 This nucleic acid amplificat ion test was developed and its performance characteristics determined by [employer]. Nucleic acid amplification tests include RT-PCR and [...] negative (not detected) result in this assay. 12 {SOURCE: Genital 13 .~.~R30.0 14 _CULTURE URINE_ ^$[id number] ^^503900 $$372111 ^^839329 $$031020 $$523639 $$473551 $$861316 $$874370 $$675927 $$385854 $$146027 $$401203 $$378155 $$009352 $$750670 $$747963 $$275049 $$416167 $$542996 $$246793 $$819345 $$459131 $$714825 $$869639 $$212391 $$544976 ^^208635 $$861463 $$996328 $$142887 -- Continued on next page -- Patient: POORNIMA Denney Order: [id number] Page 2 Culture: CULTURE URINE Status: Final -- Continued on next page -- Patient: POORNIMA Denney Order: [id number] Page 2 Culture: CULTURE URINE Status: Prelim -- Continued on next page -- Patient: POORNIMA CURRY L Order: [id number] Page 2 Culture: CULTURE URINE Status: Prelim $$[id number] $$[id number] REPORTED DATE/TIME: 05/14/2021 12:06 Culture: CULTURE URINE [...] coli Flag: A Patient: POORNIMA Denney Order: [id number] Page 3 Culture: CULTURE URINE Status: Final [...] S S . . . . . .77924-9 Gentamicin S S . . . . . .267-5 Imipenem S S . . . . . .279-0 Levofloxacin S S . . . . . .45453-4 Meropenem S S . . . . . .6652-2 Nitrofurantoin S S . . . . . .363-2 Piperacillin/Tazobactam S S . . . . . .412-7 Tetracycline S S . . . . . .496-0 Tobramycin S S . . . . . .508-2 Trimethoprim/Sulfa S S . . . . . .516-5 P1 Test performed by: [facility] #: [id number] [address] [place] [id number] [facility] [address] Inventory Control Supervisor : Armando Lang MD NPI #: Supervisor Of Guidance And Testing : 05/12/21.0645.XMT.SENT REF 05/13/21.1623.XMT.SENT REF 05/14/21.1406.XMT.SENT REF 15 URINALYSIS 16 HYPAE YEAST 17 {SOURCE: Genital 18 This nucleic acid amplificat ion test was developed and its performance characteristics determined by [employer]. Nucleic acid amplification tests include RT-PCR and [...] negative (not detected) result in this assay. 19 note:<nlbl:demographic_chang ed> 20 Units are mL/min/1.73 m2 Chronic Kidney Disease Staging per NKF: Stage I & II GFR >=60 Normal to Mildly Decreased Stage III GFR 30-59 Moderately Decreased Stage IV GFR 15-29 Severely Decreased Stage V GFR <15 Very Little GFR Left ESRD GFR <15 on BUILDING SERVICES TECHNICIAN 21 This nucleic acid amplificat ion test was developed and its performance characteristics determined by [employer]. Nucleic acid amplification tests include RT-PCR and [...] negative (not detected) result in this assay. 22 Is patient fasting? N 23 COMPLETE BLOOD COUNT 24 VITAMIN-D(25HYDROXY) Deficiency: <=20 ng/ml Insufficiency: 21-29 ng/ml Preferred level: => 30 ng/ml 25 COMPREHENSIVE METABOLIC PANE L 26 Male GFR Interprentation 20-49 yrs >60 mL/min Normal 50-59 yrs >56 mL/min Normal 60-69 yrs >49 mL/min Normal 70-79yrs >42 mL/min Normal 80 and above >35 mL/min Normal Female GFR Interpretation 20-39 yrs >60 mL/min Normal 40-49 yrs >58 mL/min Normal 50-59 yrs >51 mL/min Normal 60-69 yrs >45 mL/min Normal 70-79 yrs >39 mL/min Normal 80 and above >32 mL/min Normal 27 This nucleic acid amplificat ion test was developed and its performance characteristics determined by [employer]. Nucleic acid amplification tests include RT-PCR and [...] negative (not detected) result in this assay. 28 This nucleic acid amplificat ion test was developed and its performance characteristics determined by [employer]. Nucleic acid amplification tests include RT-PCR and [...] assay. Procedures Date Code Description Status 05/07/2021 59949 Office/Outpatient Established Lo w MDM 20-29 Min Completed 05/07/2021 76662 Office/Outpatient New Low MDM 30 -44 Minutes Completed 05/07/2021 51158 Admin Patient Focused Health Ris k Assessment Instrument Completed 05/07/2021 49597 Brief Emotional/Beha v Assessment W/ Scoring Doc Per Standard Inst Completed 04/30/2021 22313 Office/Outpatient Established Mo d MDM 30-39 Min Completed 04/18/2021 15960 Office Visit New Level 1 [facility] ed 04/13/2021 41736 Office/Outpatient Established Lo w MDM 20-29 Min Completed 04/13/2021 45335 Pulse Oximetry Single Determinat ion Completed 02/04/2021 98346 Office/Outpatient Established Lo w MDM 20-29 Min Completed 01/27/2021 60201 Office/Outpatient Established Mo d MDM 30-39 Min Completed 12/24/2020 01712 Office/Outpatient Established Lo w MDM 20-29 Min Completed 12/21/2020 86301 Office/Outpatient Established Lo w MDM 20-29 Min Completed 12/13/2020 62796 Office/Outpatient Established Lo w MDM 20-29 Min Completed 11/30/2020 48717 Office Visit [facility] 1 [facility] ed Medical Devices Description No Information Available Encounters Description No Information Available Assessments Date Code Description Provider 05/14/2021 F31.60 Bipolar disorder, current episod e [...] 04/30/2021 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, in remission Santiago Rodriguez, TOMAS 04/18/2021 J06.9 Acute upper respiratory infectio n, unspecified Antwan Burnettecht, TOMAS 04/13/2021 A09 Infectious gastroenteritis and c olitis, unspecified Emmie Wattsbetsy, HANSELC 04/11/2021 F31.60 Bipolar disorder, current episod e mixed, unspecified Amarameño Velazquez [facility], CASAC 04/11/2021 F12.20 Cannabis dependence, uncomplicat ed Amara Marcus [facility], [facility] 04/11/2021 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, in remission Alec urena Marcus [facility], [facility] 03/12/2021 F31.60 Bipolar disorder, current episod e mixed, unspecified Amara Marcus [facility], [facility] 03/12/2021 F12.20 Cannabis dependence, uncomplicat ed Amara Marcus [facility], [facility] 03/12/2021 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, in remission Alec urena Marcus [facility], [facility] 02/05/2021 F31.60 Bipolar disorder, current episod e mixed, unspecified Amara Velazquez [facility], [facility] 02/05/2021 F12.20 Cannabis dependence, uncomplicat ed Amara Marcus [facility], [facility] 02/05/2021 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, in remission Alec Velazquez [facility], CASAC 02/04/2021 G43.009 Migraine without aur [...] e mixed, unspecified Amara Velazquez LM, CASAC 01/01/2021 F12.20 Cannabis dependence, uncomplicat ed Amara BRIGHT Velazquez, CASAC 01/01/2021 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, in remission Alec urena BRIGHT Velazquez, CASAC 12/24/2020 M62.830 Muscle spasm of back Yoni Medel, TRUCKSMITH 12/21/2020 G43.009 Migraine without aur a, not intractable, without status migrainosus Juliana Hogan PA-C 12/13/2020 R05 Cough Chiki Baldwin , TRUCKSMITH 12/04/2020 F31.60 Bipolar disorder, current episod e mixed, unspecified Amara Velazquez LM, CASAC 12/04/2020 F12.20 Cannabis dependence, uncomplicat ed Amara BRIGHT Velazqeuz, CASAC 12/04/2020 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, in remission Alec urena BRIGHT Velazquez, CASAC 11/30/2020 G43.009 Migraine without aur a, not intractable, without status migrainosus Jose F Negro PA-C Plan of Treatment Future Appointment(s):* 05/28/2021 2:40 pm - Ry [facility]-C [facility] * 05/28/2021 3:00 pm - EM Muñiz CASAC at [facility] * 08/14/2021 1:00 pm - Narinder Lima MD at [facility] * 05/29/2021 10:00 am - Alma Simons NP at [facility] * 06/10/2021 2:40 pm - Ry Rodriguez PA-C at [facility] * 06/10/2021 2:00 pm - EM Muñiz, DIANDRA at [facility] 04/18/2021 - Antwan Ragland PA-C* J06.9 Acute upper respiratory infection, unspecified Functional Status Description No Information Available Mental Status Description No Information Available Referrals Description No Information Available
--- OUTSIDE RECORDS SUMMARY | 2021-06-21 20:58 | CCD | Continuity of Care Document ---
Author Author Houston LIND Organization Unknown Address [address] [place] [id number] Phone [phone] Care Team Providers Care Social Studies Department Chair Name Role Phone Narinder Lima M.D. AUTM [phone] [facility] [address] [facility] AUTM [facility] AUTM [phone] Problems Active Problems Provider Date Migraine with [...] LCSW Onse t: 06/19/2020 Cobalamin deficiency Narinder iLma MD Onset: 05/07/2021 Allergic rhinitis Narinder Lima [...] Garret Donohue 08/09/2020 Vitamin D (Ergocalciferol) 1.25mg (02662 Ut) Capsules 1 cap by mouth every [...] CPT Code Status Date Vaccine Lot # [id number] Given 05/13/2020 Influenza (>= 6 Months) P.F. Vaccine [id number] Given 06/14/2018 Influenza (>= 6 Months) P.F. [...] H/L Range Note CBC W/Automated Diff 05/16/2021 [facility] CBC W/Automated Diff (SEE NOTE) 1, 2 [...] Lymph 24.8 % Low 25.0 - 40.0 Lamoure 6.6 % 3.0 - 8.0 Eos 1.4 % 0.0 - 7.0 Baso 0.2 % 0.0 - 2.5 %Ig 0.3 % High 0.0 - 0.0 %NRBC 0.0 % 0.0 - 0.0 #Neut 8.36 10^3/uL High 2.00 - 6.90 #Lymph 3.12 10^3/uL 0.60 - 3.40 #Lamoure 0.83 10^3/uL 0.00 - 0.90 #Eos 0.18 10^3/uL 0.00 - 0.70 #Baso 0.03 10^3/uL 0.00 - 0.20 #Ig 0.04 10^3/uL 0.00 - 0.10 #NRBC 0.00 10^3/uL 0.00 - 0.00 Manual Diff NOT INDICATED RBC Morph NOT INDICATED Laboratory test finding 05/16/2021 [facility] Vitamin B12 Serum 353 pg/mL 232 - 1245 Herpes I&II Igm AB 05/16/2021 [facility] HSV, IgM I/II Combination <0.91 Ratio 0.00-0.90 3 Herpes Simplex Virus I/II Igg 05/16/2021 [facility] HSV 1 IgG, Type Spec <0.91 index 0.00-0.90 4 HSV 2 IgG, Type Spec 2.06 index High 0.00-0.90 5 HSV-2 IgG SupplementalTest Positive Abnormal Negative 6 HIV Panel 05/16/2021 [facility] HIV Screen 4thGeneration wRfx Non Reactive Non Reacti ve Laboratory test finding 05/16/2021 [facility] Syphilis NON-REACTIVE Normal:Non Reactive Hepatitis B Surf Antigen NONREACTIVE Normal:Non React stephanie Hep C Antibody With Reflex Quant PCR <0.1 s/coratio 0. 0-0.9 Comprehensive Metabolic Panel 05/16/2021 [facility] Comprehensive Metabo (SEE NOTE) 7 Sodium 138 mEq/L 134 - 153 Potassium [...] >60 mL/min Afr Amer GFR >60 mL/min 8 Laboratory test finding 05/16/2021 [facility] Ferritin Fallon 47.6 ng/mL 3.0 - 105 Iron Binding Capacity 05/16/2021 [facility] Iron 45 g/dL 42 - 135 Uibc 215 g/dL 112 - 347 Tibc 260 g/dL 250 - 450 Iron Sat 17 % Laboratory test finding 05/16/2021 [facility] Vitamin D (25-Hydroxy) 23 NG/ML 9 Covid-19 05/12/2021 [facility] Sars-CoV-2, Bev Not Detected Not Detected 10, 11 Sars-CoV-2, Bev 2 Day Tat Performed Cuture Urine 05/07/2021 [facility] Culture Urine (SEE NOTE) 12, 13 Ua With Reflex To Ua Culture 05/07/2021 [facility] sp[facility] Ua Reflex To Ua Cult (SEE NOTE) 14 Source R Color yellow Normal: Yellow Clarity hazy Normal: Clear Spec Juliaetta 1.020 1.001 - 1.030 pH 6 5 [...] 1+ Normal: None Seen Yeast Few Abnormal 15 Chlamydia GC/Trich 05/07/2021 [facility] Source: Genital 16 Chlamydia by Bev Negative Negative Gonococcus by Bev Negative Negative Trich vag by Bev Negative Negative Bacterial Vaginosis 05/07/2021 [facility] Source: Genital Ladi species Positive Abnormal Negative Gardnerella vaginalis Positive Abnormal Negative Trichomonas vaginalis Negative Negative Laboratory test finding 05/07/2021 [facility] Pallidum AB QL Serum <pending> Hepatitis C Fibrosure 05/07/2021 [facility] Hepatitis C AB Ser QN Eia <pending> .STI Panel WWW 05/07/2021 [facility] Pallidum Igg AB W/RFX Ser <pending> Hepatitis C Antibody W/Refelx <pending> Hepatitis B Surface Ag QL Eia <pending> Chlamydia/GC 05/07/2021 [facility] Chlam Trach QL Dna Probe <pending> GC By Dna Cervical Mucus <pending> Affirm Vaginitis Panel 05/07/2021 [facility] Z#Other Observations <pending> Covid-19 04/13/2021 [facility] Sars-CoV-2, Bev Not Detected Not Detected 17 Sars-CoV-2, Bev 2 Day Tat Performed Laboratory test finding 03/26/2021 [facility] Ferritin 73 NG/ML Normal 8-252 18 Total Iron Binding Capacit 03/26/2021 [facility] Iron (Fe) 78 g/dL Normal 50-170 Total Iron Binding Capacity 256 g/dL Normal 250-450 Percent Saturation 30.5 % Normal 13.2-45.0 Comprehensive Metabolic Profil 03/26/2021 [facility] Glucose, Fasting 109 mg/dL High 70-100 Blood Urea Nitrogen 14 mg/dL Normal 7-18 Creatinine For GFR 0.66 mg/dL Normal 0.55-1.30 Glomerular Filtration Rate > 60.0 Normal >60 1 9 Sodium Level 141 mEq/L Normal 136-145 Potassium [...] 1.2 Normal 1.2-2.2 CBC With Differential 03/26/2021 [facility] White Blood Count 9.9 10 [...] 36.0-66.0 Lymph % 27.1 % Normal 24.0-44.0 Lamoure % 6.4 % Normal 2.0-8.0 Eos % 1.5 % Normal 0.0-3.0 Baso % 0.3 % Normal 0.0-1.0 Immature Granulocyte % 0.4 % Normal 0-3.0 Nucleated Red Blood Cell % 0.0 % Normal 0-0 Neutrophils # 6.4 10 Normal 1.5-8.5 Lymph # 2.7 10 Normal 1.5-5.0 Lamoure # 0.6 10 Normal 0.0-0.8 Eos # 0.2 10 Normal 0.0-0.5 Baso # 0.0 10 Normal 0.0-0.2 Covid-19 02/07/2021 [facility] Sars-CoV-2, Bev Not Detected Not Detected 20 Sars-CoV-2, Bev 2 Day Tat Performed Laboratory test finding 02/04/2021 [facility] l Ferritin Fallon 63.5 ng/mL 3.0 - 105 21 Iron Binding Capacity 02/04/2021 [facility] Iron 58 g/dL 42 - 135 Uibc 173 g/dL 112 - 347 Tibc 231 g/dL Low 250 - 450 Iron Sat 25 % CBC W/Automated Diff 02/04/2021 [facility] CBC W/Automated Diff (SEE NOTE) 22 WBC 10.1 10^3/uL 4.2 - 11.0 RBC [...] 80.0 Lymph 34.6 % 25.0 - 40.0 Lamoure 7.5 % 3.0 - 8.0 Eos 2.8 % 0.0 - 7.0 Baso 0.4 % 0.0 - 2.5 %Ig 0.4 % High 0.0 - 0.0 %NRBC 0.0 % 0.0 - 0.0 #Neut 5.48 10^3/uL 2.00 - 6.90 #Lymph 3.49 10^3/uL High 0.60 - 3.40 #Lamoure 0.76 10^3/uL 0.00 - 0.90 #Eos 0.28 10^3/uL 0.00 - 0.70 #Baso 0.04 10^3/uL 0.00 - 0.20 #Ig 0.04 10^3/uL 0.00 - 0.10 #NRBC 0.00 10^3/uL 0.00 - 0.00 Manual Diff NOT INDICATED RBC Morph NOT INDICATED Laboratory test finding 02/04/2021 [facility] Vitamin B12 Serum 204 pg/mL Low 232 - 1245 Vitamin D (25-Hydroxy) 19 NG/ML 23 Comprehensive Metabolic Panel 02/04/2021 [facility] Comprehensive Metabo (SEE NOTE) 24 Sodium 138 mEq/L 134 - 153 Potassium [...] >60 mL/min Afr Amer GFR >60 mL/min 25 Laboratory test finding 01/27/2021 [facility] T4 - Free 1.27 ng/dL 0.93 - 1.70 TSH Highly Sensitive 0.34 uIU/mL Low 0.47 - 5.01 Inhouse-Influenza A&B Rna Prob 12/13/2020 In Office Influenza Virus A QL PCR negative Negative Influenza Virus B QL PCR negative Negative Laboratory test finding 12/13/2020 [facility] Coronavirus Covid-19 Not Detected Not Detected 26 Covid-19 11/21/2020 [facility] Sars-CoV-2, Bev Not Detected Not Detected 27 Sars-CoV-2, Bev 2 Day Tat Performed 1 .~.~<DG1.3.1>D51.9</DG1.3.1><DG1.3.1>D51.9</DG1.3.1><DG1.3.1>E55.9</DG1.3.1><DG1 .3.1 Is patient fasting? N~.~.~<DG1.3.1>D51.9</DG1.3.1><DG1.3.1> D51.9</DG1.3.1><DG1.3.1>E55.9</DG1.3. .~.~<DG1.3.1>D51.9</DG1.3.1><DG1.3.1>D51.9</DG1.3.1><DG1.3.1>E55.9</DG1.3.1><DG1 .3.1 .~.~<DG1.3.1>D51.9& lt;/DG1.3.1><DG1.3.1>D51.9</DG1.3.1><DG1.3.1>E55.9</DG1.3.1><DG1.3.1 .~.~<DG1.3.1>D51.9</DG1.3.1><DG1.3.1>D51.9</DG1.3.1><DG1.3.1>E55.9</DG1.3.1><DG1 .3.1 2 COMPLETE BLOOD COUNT 3 Negative <0.91 Equivocal 0.91 - 1.09 Positive >1.09 4 Negative <0.91 Equivocal 0.91 - 1.09 Positive >1.09 Note: Negative indicates no antibodies detected to HSV-1. Equivocal may suggest early infection. If clinically appropriate, retest at later date. Positive indicates antibodies detected to HSV-1. 5 Negative <0.91 Equivocal 0.91 - 1.09 Positive >1.09 Note: Negative indicates no antibodies detected to HSV-2. Equivocal may suggest early infection. If clinically appropriate, retest at later date. Positive indicates antibodies detected to HSV-2. 6 HSV-2 IgG HSV-2 IgG Type Specific Confirmation Interpretation Positive/Equivocal Positive Indicates the presence of detectable IgG antibodies to HSV-2. Positive/Equivocal Negative Unable to confirm the presence of IgG antibodies to HSV-2. Recommend retesting in 2-4 weeks. 7 COMPREHENSIVE METABOLIC PANE L 8 Male GFR Interprentation 20-49 yrs >60 mL/min Normal 50-59 yrs >56 mL/min Normal 60-69 yrs >49 mL/min Normal 70-79yrs >42 mL/min Normal 80 and above >35 mL/min Normal Female GFR Interpretation 20-39 yrs >60 mL/min Normal 40-49 yrs >58 mL/min Normal 50-59 yrs >51 mL/min Normal 60-69 yrs >45 mL/min Normal 70-79 yrs >39 mL/min Normal 80 and above >32 mL/min Normal 9 VITAMIN-D(25HYDROXY) Deficiency: <=20 ng/ml Insufficiency: 21-29 ng/ml Preferred level: => 30 ng/ml 10 .~.~Z11.59 11 This nucleic acid amplificat ion test was developed and its performance characteristics determined by [employer]. Nucleic acid amplification tests include RT-PCR and [...] (not detected) result in this assay. 12 .~.~R30.0 13 _CULTURE URINE_ ^$111359 ^^577122 $$399415 ^^458210 $$186866 $$957602 $$502902 $$201280 $$892530 $$716347 $$169765 $$463650 $$293079 $$743144 $$780480 $$483324 $$547393 $$707181 $$912592 $$791924 $$343960 $$829143 $$396424 $$570795 $$463031 $$455195 $$420895 ^^486032 $$541840 $$597454 $$193980 -- Continued on next page -- Patient: POORNIMA Denney Order: [id number] Page 2 Culture: CULTURE URINE Status: Final -- Continued on next page -- Patient: POORNIMA Denney Order: [id number] Page 2 Culture: CULTURE URINE Status: Prelim -- Continued on next page -- Patient: POORNIMA Denney Order: [id number] Page 2 Culture: CULTURE URINE Status: Prelim $$[id number] $$[id number] REPORTED DATE/TIME: 05/14/2021 12:06 Culture: CULTURE URINE [...] coli Flag: A Patient: POORNIMA Denney Order: [id number] Page 3 Culture: CULTURE URINE Status: Final [...] S S . . . . . .44500-9 Gentamicin S S . . . . . .267-5 Imipenem S S . . . . . .279-0 Levofloxacin S S . . . . . .49877-8 Meropenem S S . . . . . .6652-2 Nitrofurantoin S S . . . . . .363-2 Piperacillin/Tazobactam S S . . . . . .412-7 Tetracycline S S . . . . . .496-0 Tobramycin S S . . . . . .508-2 Trimethoprim/Sulfa S S . . . . . .516-5 P1 Test performed by: [employer] [facility] #: [id number] [address] [place] [phone] [facility] [phone] [employer] Operator : Armando Lang MD NPI #: Animal [employer] Hunter : 05/12/21.0645.XMT.SENT REF 05/13/21.1623.XMT.SENT REF 05/14/21.1406.XMT.SENT REF 14 URINALYSIS 15 HYPAE YEAST 16 {SOURCE: Genital 17 This nucleic acid amplificat ion test was developed and its performance characteristics determined by [employer]. Nucleic acid amplification tests include RT-PCR and [...] negative (not detected) result in this assay. 18 note:<nlbl:kristan_chang ed> 19 Units are mL/min/1.73 m2 Chronic Kidney Disease Staging per NKF: Stage I & II GFR >=60 Normal to Mildly Decreased Stage III GFR 30-59 Moderately Decreased Stage IV GFR 15-29 Severely Decreased Stage V GFR <15 Very Little GFR Left ESRD GFR <15 on [employer] 20 This nucleic acid amplificat ion test was developed and its performance characteristics determined by [employer]. Nucleic acid amplification tests include RT-PCR and [...] negative (not detected) result in this assay. 21 Is patient fasting? N 22 COMPLETE BLOOD COUNT 23 VITAMIN-D(25HYDROXY) Deficiency: <=20 ng/ml Insufficiency: 21-29 ng/ml Preferred level: => 30 ng/ml 24 COMPREHENSIVE METABOLIC PANE L 25 Male GFR Interprentation 20-49 yrs >60 mL/min Normal 50-59 yrs >56 mL/min Normal 60-69 yrs >49 mL/min Normal 70-79yrs >42 mL/min Normal 80 and above >35 mL/min Normal Female GFR Interpretation 20-39 yrs >60 mL/min Normal 40-49 yrs >58 mL/min Normal 50-59 yrs >51 mL/min Normal 60-69 yrs >45 mL/min Normal 70-79 yrs >39 mL/min Normal 80 and above >32 mL/min Normal 26 This nucleic acid amplificat ion test was developed and its performance characteristics determined by [employer]. Nucleic acid amplification tests include RT-PCR and [...] negative (not detected) result in this assay. 27 This nucleic acid amplificat ion test was developed and its performance characteristics determined by [employer]. Nucleic acid amplification tests include RT-PCR and [...] assay. Procedures Date Code Description Status 05/07/2021 73266 Office/Outpatient Established Lo w MDM 20-29 Min Completed 05/07/2021 94570 Office/Outpatient New Low MDM 30 -44 Minutes Completed 05/07/2021 19362 Admin Patient Focused Health Ris k Assessment Instrument Completed 05/07/2021 90881 Brief Emotional/Beha v Assessment W/ Scoring Doc Per Standard Inst Completed 04/30/2021 57054 Office/Outpatient Established Mo d MDM 30-39 Min Completed 04/18/2021 21927 Office Visit New Level 1 [facility] ed 04/13/2021 62610 Office/Outpatient Established Lo w MDM 20-29 Min Completed 04/13/2021 16058 Pulse Oximetry Single Determinat ion Completed 02/04/2021 32645 Office/Outpatient Established Lo w MDM 20-29 Min Completed 01/27/2021 79834 Office/Outpatient Established Mo d MDM 30-39 Min Completed 12/24/2020 72981 Office/Outpatient Established Lo w MDM 20-29 Min Completed 12/21/2020 59444 Office/Outpatient Established Lo w MDM 20-29 Min Completed 12/13/2020 05296 Office/Outpatient Established Lo w MDM 20-29 Min Completed 11/30/2020 20314 Office Visit New Level 1 [facility] ed Medical Devices Description No Information Available [...] J06.9 Acute upper respiratory infectio n, unspecified HANSEL LopezC 04/13/2021 A09 Infectious gastroenteritis and c olitis, unspecified Emmie Baker, HANSELC 04/11/2021 F31.60 Bipolar disorder, current episod e mixed, unspecified Amara Velazquez LM, CASAC 04/11/2021 F12.20 Cannabis dependence, uncomplicat ed Amara Velazquez LM, CASAC 04/11/2021 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, CASAC 03/12/2021 F12.20 Cannabis dependence, uncomplicat ed Amara Velazquez [facility], CASAC 03/12/2021 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, in remission Alec Velazquez LM, CASAC 02/05/2021 F31.60 Bipolar disorder, current episod e mixed, unspecified Amara Velazquez LM, CASAC 02/05/2021 F12.20 Cannabis dependence, uncomplicat ed Amara Velazquez [facility], CASAC 02/05/2021 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, in [...] M62.830 Muscle spasm of back Yoni Medel, [employer]OT WORK[employer] 12/21/2020 G43.009 Migraine without aur a, not intractable, without status migrainosus Juliana Hogan PA-C 12/13/2020 R05 Cough Star ADarlene Baldwin , [employer] 12/04/2020 F31.60 Bipolar disorder, current episod e mixed, unspecified EM Muñiz, CASAC 12/04/2020 F12.20 Cannabis dependence, uncomplicat ed EM Muñiz, CASAC 12/04/2020 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, in remission EM Greco, CASAC 11/30/2020 G43.009 Migraine without aur a, not intractable, without status migrainosus Jose F Negro PA-C Plan of Treatment Future Appointment(s):* 05/28/2021 2:40 pm - Ry Rodriguez PA-C at [facility] * 05/28/2021 3:00 pm - EM Muñiz, DIANDRA at [facility] * 08/14/2021 1:00 pm - Narinder Lima MD at [facility] * 05/29/2021 10:00 am - Alma Simons NP [facility] * 06/10/2021 2:40 pm - Ry Rodriguez PA-C at [facility] * 06/10/2021 2:00 pm - Amara Velazquez [facility], DIANDRA at [facility] 04/18/2021 - Antwan Ragland PA-C* J06.9 Acute upper respiratory infection, unspecified Functional Status Description No Information Available Mental Status Description No Information Available Referrals Description No Information Available
--- OUTSIDE RECORDS SUMMARY | 2021-06-21 20:58 | CCD | Continuity of Care Document ---
Author Author Houston LIND Organization Unknown Address [address] [place] [address] Phone [phone] Care Team Providers Care Retail Advertising Executive Name Role Phone Narinder Lima M.D. AUTM [phone] [facility] [address] [facility] AUTM [phone] [facility] AUTM [facility] AUTM Problems Active [...] Garret Donohue 08/09/2020 Vitamin D (Ergocalciferol) 1.25mg (62035 Ut) Capsules 1 cap by mouth every [...] CPT Code Status Date Vaccine Lot # [id number] Given 05/13/2020 Influenza (>= 6 Months) P.F. Vaccine [id number] Given 06/14/2018 Influenza (>= 6 Months) P.F. [...] H/L Range Note CBC W/Automated Diff 05/16/2021 [facility] CBC W/Automated Diff (SEE NOTE) 1, 2 [...] Lymph 24.8 % Low 25.0 - 40.0 Vilas 6.6 % 3.0 - 8.0 Eos 1.4 % 0.0 - 7.0 Baso 0.2 % 0.0 - 2.5 %Ig 0.3 % High 0.0 - 0.0 %NRBC 0.0 % 0.0 - 0.0 #Neut 8.36 10^3/uL High 2.00 - 6.90 #Lymph 3.12 10^3/uL 0.60 - 3.40 #Vilas 0.83 10^3/uL 0.00 - 0.90 #Eos 0.18 10^3/uL 0.00 - 0.70 #Baso 0.03 10^3/uL 0.00 - 0.20 #Ig 0.04 10^3/uL 0.00 - 0.10 #NRBC 0.00 10^3/uL 0.00 - 0.00 Manual Diff NOT INDICATED RBC Morph NOT INDICATED Laboratory test finding 05/16/2021 [facility] Vitamin D (25-Hydroxy) 23 NG/ML 3 Iron Binding Capacity 05/16/2021 [facility] Iron 45 g/dL 42 - 135 Uibc 215 g/dL 112 - 347 Tibc 260 g/dL 250 - 450 Iron Sat 17 % Laboratory test finding 05/16/2021 [facility] Ferritin Fallon 47.6 ng/mL 3.0 - 105 Comprehensive Metabolic Panel 05/16/2021 [facility] ospital Comprehensive Metabo (SEE NOTE) 4 Sodium [...] >60 mL/min 5 Laboratory test finding 05/16/2021 [facility] Syphilis NON-REACTIVE Normal:Non Reactive Hepatitis B Surf Antigen NONREACTIVE Normal:Non React stephanie Hep C Antibody With Reflex Quant PCR <0.1 s/coratio 0. 0-0.9 HIV Panel 05/16/2021 [facility] HIV Screen 4thGeneration wRfx Non Reactive Non Reacti ve Herpes Simplex Virus I/II Igg 05/16/2021 [facility] 1 IgG, Type Spec <0.91 index 0.00-0.90 6 HSV 2 IgG, Type Spec 2.06 index High 0.00-0.90 7 HSV-2 IgG SupplementalTest Positive Abnormal Negative 8 Herpes I&II Igm AB 05/16/2021 [facility] HSV, IgM I/II Combination <0.91 Ratio 0.00-0.90 9 Laboratory test finding 05/16/2021 [facility] Vitamin B12 Serum 353 pg/mL 232 - 1245 Covid-19 05/12/2021 [facility] Sars-CoV-2, Bev Not Detected Not Detected 10, 11 Sars-CoV-2, Bev 2 Day Tat Performed Bacterial Vaginosis 05/07/2021 [facility] Source: Genital 12 Ladi species Positive Abnormal Negative Gardnerella vaginalis Positive Abnormal Negative Trichomonas vaginalis Negative Negative Cuture Urine 05/07/2021 [facility] Culture Urine (SEE NOTE) 13, 14 Ua With Reflex To Ua Culture 05/07/[address] [facility] spital Ua Reflex To Ua Cult (SEE NOTE) 15 Source R Color yellow Normal: Yellow Clarity hazy Normal: Clear Spec [place] 1.020 1.001 - 1.030 pH 6 5 [...] Yeast Few Abnormal 16 Chlamydia GC/Trich 05/07/2021 [facility] Source: Genital 17 Chlamydia by Bev Negative Negative Gonococcus by Bev Negative Negative Trich vag by Bev Negative Negative Chlamydia/GC 05/07/2021 [facility] Chlam Trach QL Dna Probe <pending> GC By Dna Cervical Mucus <pending> Affirm Vaginitis Panel 05/07/2021 [facility] Z#Other Observations <pending> Covid-19 04/13/2021 [facility] Sars-CoV-2, Bev Not Detected Not Detected 18 Sars-CoV-2, Bev 2 Day Tat Performed Laboratory test finding 03/26/2021 [facility] Ferritin 73 NG/ML Normal 8-252 19 Total Iron Binding Capacit 03/26/2021 [facility] [...] 36.0-66.0 Lymph % 27.1 % Normal 24.0-44.0 Vilas % 6.4 % Normal 2.0-8.0 Eos % 1.5 % Normal 0.0-3.0 Baso % 0.3 % Normal 0.0-1.0 Immature Granulocyte % 0.4 % Normal 0-3.0 Nucleated Red Blood Cell % 0.0 % Normal 0-0 Neutrophils # 6.4 10 Normal 1.5-8.5 Lymph # 2.7 10 Normal 1.5-5.0 Vilas # 0.6 10 Normal 0.0-0.8 Eos # 0.2 10 Normal 0.0-0.5 Baso # 0.0 10 Normal 0.0-0.2 Covid-19 02/07/2021 [facility] Sars-CoV-2, Bev Not Detected Not Detected 21 Sars-CoV-2, Bev 2 Day Tat Performed Laboratory test finding 02/04/2021 [facility] Ferritin Fallon 63.5 ng/mL 3.0 - 105 22 Iron Binding Capacity 02/04/2021 [facility] Iron 58 g/dL 42 - 135 Uibc 173 g/dL 112 - 347 Tibc 231 g/dL Low 250 - 450 Iron Sat 25 % CBC W/Automated Diff 02/04/2021 [facility] CBC W/Automated Diff (SEE NOTE) 23 WBC [...] 80.0 Lymph 34.6 % 25.0 - 40.0 Vilas 7.5 % 3.0 - 8.0 Eos 2.8 % 0.0 - 7.0 Baso 0.4 % 0.0 - 2.5 %Ig 0.4 % High 0.0 - 0.0 %NRBC 0.0 % 0.0 - 0.0 #Neut 5.48 10^3/uL 2.00 - 6.90 #Lymph 3.49 10^3/uL High 0.60 - 3.40 #Vilas 0.76 10^3/uL 0.00 - 0.90 #Eos 0.28 10^3/uL 0.00 - 0.70 #Baso 0.04 10^3/uL 0.00 - 0.20 #Ig 0.04 10^3/uL 0.00 - 0.10 #NRBC 0.00 10^3/uL 0.00 - 0.00 Manual Diff NOT INDICATED RBC Morph NOT INDICATED Laboratory test finding 02/04/2021 [facility] Vitamin B12 Serum 204 pg/mL Low 232 - 1245 Vitamin D (25-Hydroxy) 19 NG/ML 24 Comprehensive Metabolic Panel 02/04/2021 [facility] Comprehensive Metabo (SEE NOTE) 25 [...] >60 mL/min 26 Laboratory test finding 01/27/2021 [facility] T4 - Free 1.27 ng/dL 0.93 - 1.70 TSH Highly Sensitive 0.34 uIU/mL Low 0.47 - 5.01 Inhouse-Influenza A&B Rna Prob 12/13/2020 In Office Influenza Virus A QL PCR negative Negative Influenza Virus B QL PCR negative Negative Laboratory test finding 12/13/2020 [facility] Coronavirus Covid-19 Not Detected Not Detected 27 Covid-19 11/21/2020 [facility] Sars-CoV-2, Bev Not Detected Not Detected 28 [...] developed and its performance characteristics determined by [employer]. Nucleic acid amplification tests include RT-PCR and [...] {SOURCE: Genital 13 .~.~R30.0 14 _CULTURE URINE_ ^$261486 ^^149055 $$154501 ^^014817 $$777609 $$838119 $$312192 $$254703 $$789222 $$612029 $$743627 $$258557 $$972961 $$157601 $$480257 $$961476 $$581066 $$195531 $$611268 $$628296 $$016477 $$428005 $$590888 $$231489 $$978959 $$975238 $$831420 ^^739487 $$824828 $$015162 $$969525 -- Continued on next page -- Patient: POORNIMA Denney Order: [id number] Page 2 Culture: CULTURE URINE Status: Final -- Continued on next page -- Patient: POORNIMA Denney Order: [id number] Page 2 Culture: CULTURE URINE Status: Prelim -- Continued on next page -- Patient: POORNIMA CURRY L Order: [id number] Page 2 Culture: CULTURE URINE Status: Prelim $$[id number] $$[id number] REPORTED DATE/TIME: 05/14/2021 12:06 Culture: CULTURE URINE [...] coli Flag: A Patient: POORNIMA Denney Order: [id number] Page 3 Culture: CULTURE URINE Status: Final [...] S S . . . . . .12164-0 Gentamicin S S . . . . . .267-5 Imipenem S S . . . . . .279-0 Levofloxacin S S . . . . . .47249-4 Meropenem S S . . . . . .6652-2 Nitrofurantoin S S . . . . . .363-2 Piperacillin/Tazobactam S S . . . . . .412-7 Tetracycline S S . . . . . .496-0 Tobramycin S S . . . . . .508-2 Trimethoprim/Sulfa S S . . . . . .516-5 P1 Test performed by: [employer] [facility] #: [id number] [address] [place] [phone] [facility] [address] Slate Splitter : Armando Lang MD NPI #: Environmental Services Supervisor : 05/12/21.0645.XMT.SENT REF 05/13/21.1623.XMT.SENT REF 05/14/21.1406.XMT.SENT REF 15 URINALYSIS 16 HYPAE YEAST 17 {SOURCE: Genital 18 This nucleic acid amplificat ion test was developed and its performance characteristics determined by [employer]. Nucleic acid amplification tests include RT-PCR and [...] Little GFR Left ESRD GFR <15 on WIRE STITCHER OPERATOR 21 This nucleic acid amplificat ion test was developed and its performance characteristics determined by [employer]. Nucleic acid amplification tests include RT-PCR and [...] developed and its performance characteristics determined by [employer]. Nucleic acid amplification tests include RT-PCR and [...] developed and its performance characteristics determined by [employer]. Nucleic acid amplification tests include RT-PCR and [...] assay. Procedures Date Code Description Status 05/07/2021 04561 Office/Outpatient Established Lo w MDM 20-29 Min Completed 05/07/2021 35812 Office/Outpatient New Low MDM 30 -44 Minutes Completed 05/07/2021 11037 Admin Patient Focused Health Ris k Assessment Instrument Completed 05/07/2021 22767 Brief Emotional/Beha v Assessment W/ Scoring Doc Per Standard Inst Completed 04/30/2021 67539 Office/Outpatient Established Mo d MDM 30-39 Min Completed 04/18/2021 44711 Office Visit New Level 1 [facility] ed 04/13/2021 23173 Office/Outpatient Established Lo w MDM 20-29 Min Completed 04/13/2021 42376 Pulse Oximetry Single Determinat ion Completed 02/04/2021 99312 Office/Outpatient Established Lo w MDM 20-29 Min Completed 01/27/2021 44503 Office/Outpatient Established Mo d MDM 30-39 Min Completed 12/24/2020 91016 Office/Outpatient Established Lo w MDM 20-29 Min Completed 12/21/2020 65859 Office/Outpatient Established Lo w MDM 20-29 Min Completed 12/13/2020 73269 Office/Outpatient Established Lo w MDM 20-29 Min Completed 11/30/2020 50423 Office Visit [facility] 1 [facility] ed [...] current episod e mixed, unspecified Amarameño Velazquez [facility], [facility] 04/11/2021 F12.20 Cannabis dependence, uncomplicat ed Amara Marcus [facility] 04/11/2021 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, in remission Alec urena Marcus [facility] 03/12/2021 F31.60 Bipolar disorder, current episod e mixed, unspecified Amara Marcus [facility], [facility] 03/12/2021 F12.20 Cannabis dependence, uncomplicat ed Amara Marcus [facility] 03/12/2021 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, in remission Alec urena Marcus [facility] 02/05/2021 F31.60 Bipolar disorder, current episod e mixed, unspecified Amara Velazquez [facility] 02/05/2021 F12.20 Cannabis dependence, uncomplicat ed Amara Marcus [facility] 02/05/2021 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, in remission Alec Velazquez [facility] 02/04/2021 G43.009 Migraine without aur a, [...] M62.830 Muscle spasm of back Yoni Medel, INVESTMENT RECOVERY TECHNICIAN 12/21/2020 G43.009 Migraine without aur a, not intractable, without status migrainosus Juliana Hogan PA-C 12/13/2020 R05 Cough Chiki Baldwin , INVESTMENT RECOVERY TECHNICIAN 12/04/2020 F31.60 Bipolar disorder, current episod e mixed, unspecified Amara Velazquez LM, CASAC 12/04/2020 F12.20 Cannabis dependence, uncomplicat ed Amara BRIGHT Velazquez, CASAC 12/04/2020 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, in remission Alec urena BRIGHT Velazquez, CASAC 11/30/2020 G43.009 Migraine without aur a, not intractable, without status migrainosus Jose F Negro PA-C Plan of Treatment Future Appointment(s):* 05/28/2021 2:40 pm - Ry Rodriguez PA-C at [facility] * 05/28/2021 3:00 pm - EM Muñiz [facility] at [facility] * 08/14/2021 1:00 pm - Narinder Lima MD at [facility] * 05/29/2021 10:00 am - [facility] * 06/10/2021 2:40 pm - Ry Rodriguez PA-C at [facility] * 06/10/2021 2:00 pm - EM Muñiz, DIANDRA at [facility] 04/18/2021 - Antwan Ragland PA-C* J06.9 Acute upper respiratory infection, unspecified Functional Status Description No Information Available Mental Status Description No Information Available Referrals Description No Information Available
--- OUTSIDE RECORDS SUMMARY | 2021-06-21 20:58 | CCD | Continuity of Care Document ---
Author Author Houston LIND Organization Unknown Address [address] [place] [address] Phone [phone] Care Team Providers Care Commissioning Specialist Name Role Phone Narinder Lima M.D. AUTM [phone] [facility] [address] [facility] AUTM [facility] AUTM [phone] [facility] AUTM [phone] Problems Active Problems Provider Date Migraine with [...] Garret Donohue 08/09/2020 Vitamin D (Ergocalciferol) 1.25mg (67648 Ut) Capsules 1 cap by mouth every [...] CPT Code Status Date Vaccine Lot # 96101 Given 05/13/2020 Influenza (>= 6 Months) P.F. Vaccine [id number] Given 06/14/2018 Influenza (>= 6 Months) P.F. [...] H/L Range Note CBC W/Automated Diff 05/16/2021 [facility] CBC W/Automated Diff (SEE NOTE) 1, [...] Lymph 24.8 % Low 25.0 - 40.0 Kaufman 6.6 % 3.0 - 8.0 Eos 1.4 % 0.0 - 7.0 Baso 0.2 % 0.0 - 2.5 %Ig 0.3 % High 0.0 - 0.0 %NRBC 0.0 % 0.0 - 0.0 #Neut 8.36 10^3/uL High 2.00 - 6.90 #Lymph 3.12 10^3/uL 0.60 - 3.40 #Kaufman 0.83 10^3/uL 0.00 - 0.90 #Eos 0.18 10^3/uL 0.00 - 0.70 #Baso 0.03 10^3/uL 0.00 - 0.20 #Ig 0.04 10^3/uL 0.00 - 0.10 #NRBC 0.00 10^3/uL 0.00 - 0.00 Manual Diff NOT INDICATED RBC Morph NOT INDICATED Laboratory test finding 05/16/2021 [facility] Vitamin B12 Serum 353 pg/mL 232 - 1245 Herpes I&II Igm AB 05/16/2021 [facility] HSV, IgM I/II Combination <0.91 Ratio 0.00-0.90 3 Herpes Simplex Virus I/II Igg 05/16/2021 [facility] ospital HSV 1 IgG, Type Spec <0.91 index 0.00-0.90 4 HSV 2 IgG, Type Spec 2.06 index High 0.00-0.90 5 HSV-2 IgG SupplementalTest Positive Abnormal Negative 6 HIV Panel 05/16/2021 [facility] HIV Screen 4thGeneration wRfx Non Reactive Non Reacti ve Laboratory test finding 05/16/2021 [facility] Syphilis NON-REACTIVE Normal:Non Reactive Hepatitis B Surf Antigen NONREACTIVE Normal:Non React stephanie Hep C Antibody With Reflex Quant PCR <0.1 s/coratio 0. 0-0.9 Comprehensive Metabolic Panel 05/16/2021 [facility]ital Comprehensive Metabo (SEE NOTE) 7 Sodium [...] >60 mL/min 8 Laboratory test finding 05/16/2021 [facility] Ferritin Fallon 47.6 ng/mL 3.0 - 105 Iron Binding Capacity 05/16/2021 [facility] Iron 45 g/dL 42 - 135 Uibc 215 g/dL 112 - 347 Tibc 260 g/dL 250 - 450 Iron Sat 17 % Laboratory test finding 05/16/2021 [facility] Vitamin D (25-Hydroxy) 23 NG/ML 9 Covid-19 05/12/2021 [facility] Sars-CoV-2, Bev Not Detected Not Detected 10, 11 Sars-CoV-2, Bev 2 Day Tat Performed Cuture Urine 05/07/2021 [facility] Culture Urine (SEE NOTE) 12, 13 Ua With Reflex To Ua Culture 05/07/2021 [facility] spital Ua Reflex To Ua Cult (SEE NOTE) 14 Source R Color yellow Normal: Yellow Clarity hazy Normal: Clear Spec [place] 1.020 1.001 - 1.030 pH 6 5 [...] Yeast Few Abnormal 15 Chlamydia GC/Trich 05/07/2021 [facility] Source: Genital 16 Chlamydia by Bev Negative Negative Gonococcus by Bev Negative Negative Trich vag by Bev Negative Negative Bacterial Vaginosis 05/07/2021 [facility] Source: Genital Ladi species Positive Abnormal [...] Z#Other Observations <pending> Covid-19 04/13/2021 [facility] Sars-CoV-2, Bev Not Detected Not Detected 17 Sars-CoV-2, Bev 2 Day Tat Performed Laboratory test finding 03/26/2021 [facility] Ferritin 73 NG/ML Normal 8-252 18 Total Iron Binding Capacit 03/26/2021 [facility] Iron (Fe) 78 g/dL Normal 50-170 Total Iron Binding Capacity 256 g/dL Normal 250-450 Percent Saturation 30.5 % Normal 13.2-45.0 Comprehensive Metabolic Profil 03/26/2021 [facility] Glucose, Fasting 109 mg/dL High 70-100 Blood [...] With Differential 03/26/2021 [facility] White Blood Count 9.9 10 Normal 4.0-10.0 [...] 36.0-66.0 Lymph % 27.1 % Normal 24.0-44.0 Kaufman % 6.4 % Normal 2.0-8.0 Eos % 1.5 % Normal 0.0-3.0 Baso % 0.3 % Normal 0.0-1.0 Immature Granulocyte % 0.4 % Normal 0-3.0 Nucleated Red Blood Cell % 0.0 % Normal 0-0 Neutrophils # 6.4 10 Normal 1.5-8.5 Lymph # 2.7 10 Normal 1.5-5.0 Kaufman # 0.6 10 Normal 0.0-0.8 Eos # 0.2 10 Normal 0.0-0.5 Baso # 0.0 10 Normal 0.0-0.2 Covid-19 02/07/2021 [facility] Sars-CoV-2, Bev Not Detected Not Detected 20 Sars-CoV-2, Bev 2 Day Tat Performed Laboratory test finding 02/04/2021 [facility] l Ferritin Fallon 63.5 ng/mL 3.0 - 105 21 Iron Binding Capacity 02/04/2021 [facility] Iron 58 g/dL 42 - 135 Uibc 173 g/dL 112 - 347 Tibc 231 g/dL Low 250 - 450 Iron Sat 25 % CBC W/Automated Diff 02/04/2021 [facility] CBC W/Automated Diff (SEE NOTE) 22 WBC [...] 80.0 Lymph 34.6 % 25.0 - 40.0 Kaufman 7.5 % 3.0 - 8.0 Eos 2.8 % 0.0 - 7.0 Baso 0.4 % 0.0 - 2.5 %Ig 0.4 % High 0.0 - 0.0 %NRBC 0.0 % 0.0 - 0.0 #Neut 5.48 10^3/uL 2.00 - 6.90 #Lymph 3.49 10^3/uL High 0.60 - 3.40 #Kaufman 0.76 10^3/uL 0.00 - 0.90 #Eos 0.28 10^3/uL 0.00 - 0.70 #Baso 0.04 10^3/uL 0.00 - 0.20 #Ig 0.04 10^3/uL 0.00 - 0.10 #NRBC 0.00 10^3/uL 0.00 - 0.00 Manual Diff NOT INDICATED RBC Morph NOT INDICATED Laboratory test finding 02/04/2021 [facility] Vitamin B12 Serum 204 pg/mL Low 232 - 1245 Vitamin D (25-Hydroxy) 19 NG/ML 23 Comprehensive Metabolic Panel 02/04/2021 [facility] Comprehensive Metabo (SEE NOTE) 24 Sodium [...] >60 mL/min 25 Laboratory test finding 01/27/2021 [facility] T4 - Free 1.27 ng/dL 0.93 - 1.70 TSH Highly Sensitive 0.34 uIU/mL Low 0.47 - 5.01 Inhouse-Influenza A&B Rna Prob 12/13/2020 In Office Influenza Virus A QL PCR negative Negative Influenza Virus B QL PCR negative Negative Laboratory test finding 12/13/2020 [facility] Coronavirus Covid-19 Not Detected Not Detected 26 Covid-19 11/21/2020 [facility] Sars-CoV-2, Bev Not Detected Not Detected 27 [...] developed and its performance characteristics determined by [employer]. Nucleic acid amplification tests include RT-PCR and [...] this assay. 12 .~.~R30.0 13 _CULTURE URINE_ ^$358289 ^^323131 $$034555 ^^868185 $$852825 $$482166 $$671496 $$825825 $$665350 $$670318 $$242875 $$145478 $$315003 $$820229 $$744612 $$142791 $$242202 $$390919 $$230149 $$650766 $$363316 $$416851 $$077630 $$298735 $$343529 $$353170 $$808904 ^^742903 $$706736 $$659580 $$802090 -- Continued on next page -- Patient: POORNIMA Denney Order: [id number] Page 2 Culture: CULTURE URINE Status: Final -- Continued on next page -- Patient: POORNIMA Denney Order: [id number] Page 2 Culture: CULTURE URINE Status: Prelim -- Continued on next page -- Patient: POORNIMA Denney Order: [id number] Page 2 Culture: CULTURE URINE Status: Prelim $$[id number] $$[id number] REPORTED DATE/TIME: 05/14/2021 12:06 Culture: CULTURE URINE [...] coli Flag: A Patient: POORNIMA Denney Order: [id number] Page 3 Culture: CULTURE URINE Status: Final [...] S S . . . . . .97438-4 Gentamicin S S . . . . . .267-5 Imipenem S S . . . . . .279-0 Levofloxacin S S . . . . . .28271-0 Meropenem S S . . . . . .6652-2 Nitrofurantoin S S . . . . . .363-2 Piperacillin/Tazobactam S S . . . . . .412-7 Tetracycline S S . . . . . .496-0 Tobramycin S S . . . . . .508-2 Trimethoprim/Sulfa S S . . . . . .516-5 P1 Test performed by: [employer] [facility] #: [id number] [address] [place] [address] [phone] [facility] [address] Cook Helper Pastry : Armando Lang MD NPI #: Patient Intake Representative : 05/12/21.0645.XMT.SENT REF 05/13/21.1623.XMT.SENT REF 05/14/21.1406.XMT.SENT REF 14 URINALYSIS 15 HYPAE YEAST 16 {SOURCE: Genital 17 This nucleic acid amplificat ion test was developed and its performance characteristics determined by [employer]. Nucleic acid amplification tests include RT-PCR and [...] Little GFR Left ESRD GFR <15 on HOMICIDE SQUAD COMMANDING OFFICER 20 This nucleic acid amplificat ion test was developed and its performance characteristics determined by [employer]. Nucleic acid amplification tests include RT-PCR and [...] developed and its performance characteristics determined by [employer]. Nucleic acid amplification tests include RT-PCR and [...] developed and its performance characteristics determined by [employer]. Nucleic acid amplification tests include RT-PCR and [...] assay. Procedures Date Code Description Status 05/07/2021 91136 Office/Outpatient Established Lo w MDM 20-29 Min Completed 05/07/2021 34292 Office/Outpatient New Low MDM 30 -44 Minutes Completed 05/07/2021 09609 Admin Patient Focused Health Ris k Assessment Instrument Completed 05/07/2021 87272 Brief Emotional/Beha v Assessment W/ Scoring Doc Per Standard Inst Completed 04/30/2021 43404 Office/Outpatient Established Mo d MDM 30-39 Min Completed 04/18/2021 12844 Office Visit New Level 1 [facility] ed 04/13/2021 02683 Office/Outpatient Established Lo w MDM 20-29 Min Completed 04/13/2021 47006 Pulse Oximetry Single Determinat ion Completed 02/04/2021 41401 Office/Outpatient Established Lo w MDM 20-29 Min Completed 01/27/2021 88815 Office/Outpatient Established Mo d MDM 30-39 Min Completed 12/24/2020 75768 Office/Outpatient Established Lo w MDM 20-29 Min Completed 12/21/2020 03720 Office/Outpatient Established Lo w MDM 20-29 Min Completed 12/13/2020 35516 Office/Outpatient Established Lo w MDM 20-29 Min Completed 11/30/2020 12109 Office Visit New Level 1 [facility] ed Medical Devices Description No Information Available Encounters Description No Information Available Assessments Date Code Description Provider 05/14/2021 F31.60 Bipolar disorder, current episod e mixed, unspecified EM Muñiz, CASAC 05/14/2021 F12.20 Cannabis dependence, uncomplicat ed ME Muñiz, CASAC 05/07/2021 B37.3 Candidiasis of vulva [...] mixed, unspecified Amara Velazquez [facility] 03/12/2021 F12.20 Cannabis dependence, uncomplicat ed Amara Velazquez [facility] 03/12/2021 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, in remission Alec Velazquez LM, CASAC 02/05/2021 F31.60 Bipolar disorder, current episod e mixed, unspecified Amara Velazquez LM, CASAC 02/05/2021 F12.20 Cannabis dependence, uncomplicat ed Amara Velazquez [facility] 02/05/2021 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, [...] M62.830 Muscle spasm of back Yoni Medel, DECATING MACHINE OPERATOR 12/21/2020 G43.009 Migraine without aur a, not intractable, without status migrainosus Juliana Hogan PA-C 12/13/2020 R05 Cough Star ADarlene Baldwin , DECATING MACHINE OPERATOR 12/04/2020 F31.60 Bipolar disorder, current episod [...] 1:00 pm - Narinder Lima MD at [facility] * 05/29/2021 10:00 am - Alma Simons NP [facility] * 06/10/2021 2:40 pm - Ry Rodriguez PA-C at [facility] * 06/10/2021 2:00 pm - Amara Velazquez [facility], DIANDRA at [facility] 04/18/2021 - Antwan Ragland PA-C* J06.9 Acute upper respiratory infection, unspecified Functional Status Description No Information Available Mental Status Description No Information Available Referrals Description No Information Available
--- OUTSIDE RECORDS SUMMARY | 2021-06-21 20:58 | CCD | Continuity of Care Document ---
Author Author Houston LIMA M.D. Organization Unknown Address [address] [place] [address] Phone [phone] Care Team Providers Care Test Automation Architect Name Role Phone Narinder Lima M.D. AUTM [phone] [facility] [address] [facility] AUTM [facility] AUTM [facility] AUTM Problems Active [...] SIG Qnty Indications Ordering Provide r Date Cipro 250mg Tablets 1 tab by mouth [...] Garret Donohue 08/09/2020 Vitamin D (Ergocalciferol) 1.25mg (77397 Ut) Capsules 1 cap by mouth every [...] CPT Code Status Date Vaccine Lot # 15034 Given 05/13/2020 Influenza (>= 6 Months) P.F. Vaccine [id number] Given 06/14/2018 Influenza (>= 6 Months) P.F. [...] Date Facility Test Result H/L Range Note Covid-19 05/12/2021 [facility] Sars-CoV-2, Bev Not Detected Not Detected 1, 2 Sars-CoV-2, Bev 2 Day Tat Performed Affirm Vaginitis Panel 05/07/2021 [facility] Z#Other Observations <pending> Chlamydia/GC 05/07/2021 [facility] Chlam Trach QL Dna Probe <pending> GC By Dna Cervical Mucus <pending> .STI Panel WWW 05/07/2021 [facility] T Pallidum Igg AB W/RFX Ser <pending> Hepatitis C Antibody W/Refelx <pending> Hepatitis B Surface Ag QL Eia <pending> Hepatitis C Fibrosure 05/07/2021 [facility] Hepatitis C AB Ser QN Eia <pending> Laboratory test finding 05/07/2021 [facility] T Pallidum AB QL Serum <pending> Bacterial Vaginosis 05/07/2021 [facility] Source: Genital 3 Ladi species Positive Abnormal Negative Gardnerella vaginalis Positive Abnormal Negative Trichomonas vaginalis Negative Negative Chlamydia GC/Trich 05/07/2021 [facility] Source: Genital Chlamydia by Bev Negative Negative Gonococcus by Bev Negative Negative Trich vag by Bev Negative Negative Ua With Reflex To Ua Culture 05/07/2021 [facility] spital Ua Reflex To Ua Cult (SEE NOTE) 4, 5 Source R Color yellow Normal: Yellow Clarity hazy Normal: Clear Spec Bishop 1.020 1.001 - 1.030 pH 6 5 [...] 1+ Normal: None Seen Yeast Few Abnormal 6 Cuture Urine 05/07/2021 [facility] Culture Urine (SEE NOTE) 7 Covid-19 04/13/2021 [facility] Sars-CoV-2, Bev Not Detected Not Detected 8 Sars-CoV-2, Bev 2 Day Tat Performed CBC With Differential 03/26/2021 [facility] White Blood Count 9.9 10 Normal [...] 36.0-66.0 Lymph % 27.1 % Normal 24.0-44.0 [place] % 6.4 % Normal 2.0-8.0 Eos % 1.5 % Normal 0.0-3.0 Baso % 0.3 % Normal 0.0-1.0 Immature Granulocyte % 0.4 % Normal 0-3.0 Nucleated Red Blood Cell % 0.0 % Normal 0-0 Neutrophils # 6.4 10 Normal 1.5-8.5 Lymph # 2.7 10 Normal 1.5-5.0 [place] # 0.6 10 Normal 0.0-0.8 Eos # 0.2 10 Normal 0.0-0.5 Baso # 0.0 10 Normal 0.0-0.2 Laboratory test finding 03/26/2021 [facility] Ferritin 73 NG/ML Normal 8-252 9 Total Iron Binding Capacit 03/26/2021 [facility] Iron (Fe) 78 g/dL Normal 50-170 Total Iron Binding Capacity 256 g/dL Normal 250-450 Percent Saturation 30.5 % Normal 13.2-45.0 Comprehensive Metabolic Profil 03/26/2021 [facility] Glucose, Fasting 109 mg/dL High 70-100 Blood Urea Nitrogen 14 mg/dL Normal 7-18 Creatinine For GFR 0.66 mg/dL Normal 0.55-1.30 Glomerular Filtration Rate > 60.0 Normal >60 1 0 Sodium Level 141 mEq/L Normal 136-145 [...] Normal 3.2-5.2 Albumin/Globulin Ratio 1.2 Normal 1.2-2.2 Covid-19 02/07/2021 [facility] Sars-CoV-2, Bev Not Detected Not Detected 11 Sars-CoV-2, Bev 2 Day Tat Performed Laboratory test finding 02/04/2021 [facility] l Ferritin Fallon 63.5 ng/mL 3.0 - 105 12 Iron Binding Capacity 02/04/2021 [facility] Iron 58 g/dL 42 - 135 Uibc 173 g/dL 112 - 347 Tibc 231 g/dL Low 250 - 450 Iron Sat 25 % CBC W/Automated Diff 02/04/2021 [facility] CBC W/Automated Diff (SEE NOTE) 13 WBC 10.1 10^3/uL 4.2 - 11.0 RBC [...] 80.0 Lymph 34.6 % 25.0 - 40.0 [place] 7.5 % 3.0 - 8.0 Eos 2.8 % 0.0 - 7.0 Baso 0.4 % 0.0 - 2.5 %Ig 0.4 % High 0.0 - 0.0 %NRBC 0.0 % 0.0 - 0.0 #Neut 5.48 10^3/uL 2.00 - 6.90 #Lymph 3.49 10^3/uL High 0.60 - 3.40 #[place]yenne 0.76 10^3/uL 0.00 - 0.90 #Eos 0.28 10^3/uL 0.00 - 0.70 #Baso 0.04 10^3/uL 0.00 - 0.20 #Ig 0.04 10^3/uL 0.00 - 0.10 #NRBC 0.00 10^3/uL 0.00 - 0.00 Manual Diff NOT INDICATED RBC Morph NOT INDICATED Laboratory test finding 02/04/2021 [facility] Vitamin B12 Serum 204 pg/mL Low 232 - 1245 Vitamin D (25-Hydroxy) 19 NG/ML 14 Comprehensive Metabolic Panel 02/04/2021 [facility] ospital Comprehensive Metabo (SEE NOTE) 15 Sodium 138 mEq/L 134 - 153 Potassium [...] >60 mL/min Afr Amer GFR >60 mL/min 16 Laboratory test finding 01/27/2021 [facility] T4 - Free 1.27 ng/dL 0.93 - 1.70 TSH Highly Sensitive 0.34 uIU/mL Low 0.47 - 5.01 Inhouse-Influenza A&B Rna Prob 12/13/2020 In Office Influenza Virus A QL PCR negative Negative Influenza Virus B QL PCR negative Negative Laboratory test finding 12/13/2020 [facility] Coronavirus Covid-19 Not Detected Not Detected 17 Covid-19 11/21/2020 [facility] Sars-CoV-2, Bev Not Detected Not Detected 18 Sars-CoV-2, Bev 2 Day Tat Performed 1 .~.~Z11.59 2 This nucleic acid amplificat ion test was developed and its performance characteristics determined by [employer]. Nucleic acid amplification tests include RT-PCR [...] negative (not detected) result in this assay. 3 {SOURCE: Genital 4 .~.~R30.0 5 URINALYSIS 6 HYPAE YEAST 7 _CULTURE URINE_ ^$787285 ^^066574 $$817809 ^^185103 $$670518 $$170280 $$403033 $$670234 $$665484 $$859124 $$820308 $$334729 $$376297 $$390250 $$759690 $$822043 $$224368 $$024120 $$151785 $$868386 $$216970 $$256656 $$674493 $$975100 $$771770 $$079704 $$784398 ^^296562 $$973317 $$468737 $$222326 -- Continued on next page -- Patient: POORNIMA Denney Order: [id number] Page 2 Culture: CULTURE URINE Status: Final -- Continued on next page -- Patient: POORNIMA Denney Order: [id number] Page 2 Culture: CULTURE URINE Status: Prelim -- Continued on next page -- Patient: POORNIMA Denney Order: [id number] Page 2 Culture: CULTURE URINE Status: Prelim $$[id number] $$[id number] REPORTED DATE/TIME: 05/14/2021 12:06 Culture: CULTURE URINE [...] coli Flag: A Patient: POORNIMA Denney Order: [id number] Page 3 Culture: CULTURE URINE Status: Final [...] S S . . . . . .28585-8 Gentamicin S S . . . . . .267-5 Imipenem S S . . . . . .279-0 Levofloxacin S S . . . . . .63686-9 Meropenem S S . . . . . .6652-2 Nitrofurantoin S S . . . . . .363-2 Piperacillin/Tazobactam S S . . . . . .412-7 Tetracycline S S . . . . . .496-0 Tobramycin S S . . . . . .508-2 Trimethoprim/Sulfa S S . . . . . .516-5 P1 Test performed by: [employer] [facility] #: [id number] [address] [place] [id number] [facility] [address] Plate Grainer : Armando Lang MD NPI #: Multigraph Operator : 05/12/21.0645.XMT.SENT REF 05/13/21.1623.XMT.SENT REF 05/14/21.1406.XMT.SENT REF 8 This nucleic acid amplificat ion test was developed and its performance characteristics determined by [employer]. Nucleic acid amplification tests include RT-PCR [...] negative (not detected) result in this assay. 9 note:<nlbl:demographic_chang ed> 10 Units are mL/min/1.73 m2 Chronic Kidney Disease Staging per NKF: Stage I & II GFR >=60 Normal to Mildly Decreased Stage III GFR 30-59 Moderately Decreased Stage IV GFR 15-29 Severely Decreased Stage V GFR <15 Very Little GFR Left ESRD GFR <15 on HELICOPTER MECHANIC 11 This nucleic acid amplificat ion test was developed and its performance characteristics determined by [employer]. Nucleic acid amplification tests include RT-PCR [...] (not detected) result in this assay. 12 Is patient fasting? N 13 COMPLETE BLOOD COUNT 14 VITAMIN-D(25HYDROXY) Deficiency: <=20 ng/ml Insufficiency: 21-29 ng/ml Preferred level: => 30 ng/ml 15 COMPREHENSIVE METABOLIC PANE L 16 Male GFR Interprentation 20-49 yrs >60 mL/min Normal 50-59 yrs >56 mL/min Normal 60-69 yrs >49 mL/min Normal 70-79yrs >42 mL/min Normal 80 and above >35 mL/min Normal Female GFR Interpretation 20-39 yrs >60 mL/min Normal 40-49 yrs >58 mL/min Normal 50-59 yrs >51 mL/min Normal 60-69 yrs >45 mL/min Normal 70-79 yrs >39 mL/min Normal 80 and above >32 mL/min Normal 17 This nucleic acid amplificat ion test was developed and its performance characteristics determined by [employer]. Nucleic acid amplification tests include RT-PCR [...] (not detected) result in this assay. 18 This nucleic acid amplificat ion test was developed and its performance characteristics determined by [employer]. Nucleic acid amplification tests include RT-PCR [...] assay. Procedures Date Code Description Status 05/07/2021 66473 Office/Outpatient Established Lo w MDM 20-29 Min Completed 05/07/2021 03221 Office/Outpatient New Low MDM 30 -44 Minutes Completed 05/07/2021 62861 Admin Patient Focused Health Ris k Assessment Instrument Completed 05/07/2021 59886 Brief Emotional/Beha v Assessment W/ Scoring Doc Per Standard Inst Completed 04/30/2021 69908 Office/Outpatient Established Mo d MDM 30-39 Min Completed 04/18/2021 97415 Office Visit New Level 1 [facility] ed 04/13/2021 18826 Office/Outpatient Established Lo w MDM 20-29 Min Completed 04/13/2021 88475 Pulse Oximetry Single Determinat ion Completed 02/04/2021 03739 Office/Outpatient Established Lo w MDM 20-29 Min Completed 01/27/2021 20818 Office/Outpatient Established Mo d MDM 30-39 Min Completed 12/24/2020 85700 Office/Outpatient Established Lo w MDM 20-29 Min Completed 12/21/2020 51043 Office/Outpatient Established Lo w MDM 20-29 Min Completed 12/13/2020 63917 Office/Outpatient Established Lo w MDM 20-29 Min Completed 11/30/2020 92581 Office Visit New Level 1 [facility] ed Medical Devices Description No Information Available Encounters Description No Information Available Assessments Date Code Description Provider 05/14/2021 F31.60 Bipolar disorder, current episod e mixed, unspecified EM Muñiz, DIANDRA 05/14/2021 F12.20 Cannabis dependence, uncomplicat ed EM Muñiz, DIANDRA 05/07/2021 B37.3 Candidiasis of vulva and vagina Alma O'joshua, NEETA 05/07/2021 Z11.3 Encounter for screen ing [...] current episod e mixed, unspecified Amara Velazquez [facility] 01/01/2021 F12.20 Cannabis dependence, uncomplicat ed Amara Velazquez [facility] 01/01/2021 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, in remission Alec Velazquez [facility] 12/24/2020 M62.830 Muscle spasm of back Yoni Medel, WEDGER 12/21/2020 G43.009 Migraine without aur a, not intractable, without status migrainosus Juliana Hogan PA-C 12/13/2020 R05 Cough Chiki Baldwin , WEDGER 12/04/2020 F31.60 Bipolar disorder, current episod e mixed, unspecified Amara Velazquez [facility] 12/04/2020 F12.20 Cannabis dependence, uncomplicat ed Amara Velazquez [facility] 12/04/2020 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, in remission Alec Velazquez [facility] 11/30/2020 G43.009 Migraine without aur a, not intractable, without status migrainosus Jose F Negro PA-C Plan of Treatment Future Appointment(s):* 05/28/2021 2:40 pm - Ry Rodriguez [facility]-C at [facility] * 05/28/2021 3:00 pm - EM Muñiz, DIANDRA at [facility] * 08/14/2021 1:00 pm - Narinder Lima MD at [facility] * 05/29/2021 10:00 am - Alma Simons NP at [facility] * 06/10/2021 2:40 pm - Ry Rodriguez PA-C at [facility] * 06/10/2021 2:00 pm - EM Muñiz, DIANDRA at [facility] 04/18/2021 - Antwan Ragland PA-C* J06.9 Acute upper respiratory infection, unspecified Functional Status Description No Information Available Mental Status Description No Information Available Referrals Description No Information Available
--- OUTSIDE RECORDS SUMMARY | 2021-06-21 20:58 | CCD | Continuity of Care Document ---
Author Author Houston LIMA M.D. Organization Unknown Address [address] [place] [address] Phone [phone] Care Team Providers Care Twenty One Dealer Name Role Phone Narinder Lima M.D. AUTM [phone] [facility] [address] [facility] AUTM [phone] [facility] AUTM [facility] AUTM [phone] Problems Active Problems Provider Date Migraine with [...] Garret Donohue 08/09/2020 Vitamin D (Ergocalciferol) 1.25mg (16233 Ut) Capsules 1 cap by mouth every [...] CPT Code Status Date Vaccine Lot # 40521 Given 05/13/2020 Influenza (>= 6 Months) P.F. Vaccine [id number] Given 06/14/2018 Influenza (>= 6 Months) P.F. [...] H/L Range Note CBC W/Automated Diff 05/16/2021 [facility] CBC W/Automated Diff (SEE NOTE) 1, [...] Lymph 24.8 % Low 25.0 - 40.0 [place] 6.6 % 3.0 - 8.0 Eos 1.4 % 0.0 - 7.0 Baso 0.2 % 0.0 - 2.5 %Ig 0.3 % High 0.0 - 0.0 %NRBC 0.0 % 0.0 - 0.0 #Neut 8.36 10^3/uL High 2.00 - 6.90 #Lymph 3.12 10^3/uL 0.60 - 3.40 #[place] 0.83 10^3/uL 0.00 - 0.90 #Eos 0.18 10^3/uL 0.00 - 0.70 #Baso 0.03 10^3/uL 0.00 - 0.20 #Ig 0.04 10^3/uL 0.00 - 0.10 #NRBC 0.00 10^3/uL 0.00 - 0.00 Manual Diff NOT INDICATED RBC Morph NOT INDICATED Laboratory test finding 05/16/2021 [facility] Vitamin D (25-Hydroxy) 23 NG/ML 3 Iron Binding Capacity 05/16/2021 [facility] Iron 45 g/dL 42 - 135 Uibc 215 g/dL 112 - 347 Tibc 260 g/dL 250 - 450 Iron Sat 17 % Laboratory test finding 05/16/2021 [facility] Ferritin Fallon 47.6 ng/mL 3.0 - 105 Comprehensive Metabolic Panel 05/16/2021 [facility] ospital Comprehensive Metabo (SEE NOTE) 4 [...] >60 mL/min 5 Laboratory test finding 05/16/2021 [facility] Syphilis NON-REACTIVE Normal:Non Reactive Hepatitis B Surf Antigen NONREACTIVE Normal:Non React stephanie Hep C Antibody With Reflex Quant PCR <0.1 s/coratio 0. 0-0.9 HIV Panel 05/16/2021 [facility] HIV Screen 4thGeneration wRfx Non Reactive Non Reacti ve Herpes Simplex Virus I/II Igg 05/16/2021 [facility] HSV 1 IgG, Type Spec <0.91 index 0.00-0.90 6 HSV 2 IgG, Type Spec 2.06 index High 0.00-0.90 7 HSV-2 IgG SupplementalTest Positive Abnormal Negative 8 Herpes I&II Igm AB 05/16/2021 [facility] HSV, IgM I/II Combination <0.91 Ratio 0.00-0.90 9 Laboratory test finding 05/16/2021 [facility] Vitamin B12 Serum 353 pg/mL 232 - 1245 Covid-19 05/12/2021 [facility] Sars-CoV-2, Bev Not Detected Not Detected 10, 11 Sars-CoV-2, Bev 2 Day Tat Performed Bacterial Vaginosis 05/07/2021 [facility] Source: Genital 12 Ladi species Positive Abnormal Negative Gardnerella vaginalis Positive Abnormal Negative Trichomonas vaginalis Negative Negative Cuture Urine 05/07/2021 [facility] Culture Urine (SEE NOTE) 13, 14 Ua With Reflex To Ua Culture 05/07/2021 [facility] spital Ua Reflex To Ua Cult (SEE NOTE) 15 Source R Color yellow Normal: Yellow Clarity hazy Normal: Clear Spec [place] 1.020 1.001 - 1.030 pH 6 5 [...] Yeast Few Abnormal 16 Chlamydia GC/Trich 05/07/2021 [facility] Source: Genital 17 Chlamydia by Bev Negative Negative Gonococcus by Bev Negative Negative Trich vag by Bev Negative Negative Chlamydia/GC 05/07/2021 [facility] Chlam Trach QL Dna Probe <pending> GC By Dna Cervical Mucus <pending> Affirm Vaginitis Panel 05/07/2021 [facility] Z#Other Observations <pending> Covid-19 04/13/2021 [facility] Sars-CoV-2, Bev Not Detected Not Detected 18 Sars-CoV-2, Bev 2 Day Tat Performed Laboratory test finding 03/26/2021 [facility] Ferritin 73 NG/ML Normal 8-252 19 Total Iron Binding Capacit 03/26/2021 [facility] Iron (Fe) 78 g/dL Normal 50-170 Total Iron Binding Capacity 256 g/dL Normal 250-450 Percent Saturation 30.5 % Normal 13.2-45.0 Comprehensive Metabolic Profil 03/26/2021 [facility] Glucose, Fasting 109 mg/dL High 70-100 Blood [...] 1.2 Normal 1.2-2.2 CBC With Differential 03/26/2021 [facility] White Blood Count 9.9 10 Normal 4.0-10.0 [...] 36.0-66.0 Lymph % 27.1 % Normal 24.0-44.0 [place] % 6.4 % Normal 2.0-8.0 Eos % 1.5 % Normal 0.0-3.0 Baso % 0.3 % Normal 0.0-1.0 Immature Granulocyte % 0.4 % Normal 0-3.0 Nucleated Red Blood Cell % 0.0 % Normal 0-0 Neutrophils # 6.4 10 Normal 1.5-8.5 Lymph # 2.7 10 Normal 1.5-5.0 [place] # 0.6 10 Normal 0.0-0.8 Eos # 0.2 10 Normal 0.0-0.5 Baso # 0.0 10 Normal 0.0-0.2 Covid-19 02/07/2021 [facility] Sars-CoV-2, Bev Not Detected Not Detected 21 Sars-CoV-2, Bev 2 Day Tat Performed Laboratory test finding 02/04/2021 [facility] Ferritin Fallon 63.5 ng/mL 3.0 - 105 22 Iron Binding Capacity 02/04/2021 [facility] Iron 58 g/dL 42 - 135 Uibc 173 g/dL 112 - 347 Tibc 231 g/dL Low 250 - 450 Iron Sat 25 % CBC W/Automated Diff 02/04/2021 [facility] CBC W/Automated Diff (SEE NOTE) 23 [...] 80.0 Lymph 34.6 % 25.0 - 40.0 [place] 7.5 % 3.0 - 8.0 Eos 2.8 % 0.0 - 7.0 Baso 0.4 % 0.0 - 2.5 %Ig 0.4 % High 0.0 - 0.0 %NRBC 0.0 % 0.0 - 0.0 #Neut 5.48 10^3/uL 2.00 - 6.90 #Lymph 3.49 10^3/uL High 0.60 - 3.40 #[place] 0.76 10^3/uL 0.00 - 0.90 #Eos 0.28 10^3/uL 0.00 - 0.70 #Baso 0.04 10^3/uL 0.00 - 0.20 #Ig 0.04 10^3/uL 0.00 - 0.10 #NRBC 0.00 10^3/uL 0.00 - 0.00 Manual Diff NOT INDICATED RBC Morph NOT INDICATED Laboratory test finding 02/04/2021 [facility] Vitamin B12 Serum 204 pg/mL Low 232 - 1245 Vitamin D (25-Hydroxy) 19 NG/ML 24 Comprehensive Metabolic Panel 02/04/2021 [facility] Metabo (SEE NOTE) 25 Sodium [...] >60 mL/min 26 Laboratory test finding 01/27/2021 [facility] T4 - Free 1.27 ng/dL 0.93 - 1.70 TSH Highly Sensitive 0.34 uIU/mL Low 0.47 - 5.01 Inhouse-Influenza A&B Rna Prob 12/13/2020 In Office Influenza Virus A QL PCR negative Negative Influenza Virus B QL PCR negative Negative Laboratory test finding 12/13/2020 [facility] Coronavirus Covid-19 Not Detected Not Detected 27 Covid-19 11/21/2020 [facility] Sars-CoV-2, Bev Not Detected Not Detected [...] developed and its performance characteristics determined by [employer]. Nucleic acid amplification tests include RT-PCR and [...] {SOURCE: Genital 13 .~.~R30.0 14 _CULTURE URINE_ ^$541537 ^^131110 $$684100 ^^812307 $$608407 $$236191 $$778261 $$740166 $$538720 $$340512 $$221738 $$768959 $$596546 $$823999 $$985280 $$773184 $$021239 $$079823 $$223945 $$718838 $$321962 $$397765 $$072537 $$199277 $$088634 $$779051 $$590806 ^^786510 $$254912 $$944610 $$210345 -- Continued on next page -- Patient: POORNIMA Denney Order: [id number] Page 2 Culture: CULTURE URINE Status: Final -- Continued on next page -- Patient: POORNIMA Denney Order: [id number] Page 2 Culture: CULTURE URINE Status: Prelim -- Continued on next page -- Patient: POORNIMA CURRY L Order: [id number] Page 2 Culture: CULTURE URINE Status: Prelim $$[id number] $$[id number] REPORTED DATE/TIME: 05/14/2021 12:06 Culture: CULTURE URINE [...] coli Flag: A Patient: POORNIMA Denney Order: [id number] Page 3 Culture: CULTURE URINE Status: Final [...] S S . . . . . .47191-8 Gentamicin S S . . . . . .267-5 Imipenem S S . . . . . .279-0 Levofloxacin S S . . . . . .11736-5 Meropenem S S . . . . . .6652-2 Nitrofurantoin S S . . . . . .363-2 Piperacillin/Tazobactam S S . . . . . .412-7 Tetracycline S S . . . . . .496-0 Tobramycin S S . . . . . .508-2 Trimethoprim/Sulfa S S . . . . . .516-5 P1 Test performed by: [employer] [facility] #: [id number] [address] [place] [address] [id number] [facility] [address] Longshore Equipment Operator : Armando Lang MD NPI #: Journeyman Welder : 05/12/21.0645.XMT.SENT REF 05/13/21.1623.XMT.SENT REF 05/14/21.1406.XMT.SENT REF 15 URINALYSIS 16 HYPAE YEAST 17 {SOURCE: Genital 18 This nucleic acid amplificat ion test was developed and its performance characteristics determined by [employer]. Nucleic acid amplification tests include RT-PCR and [...] Little GFR Left ESRD GFR <15 on TRICOT KNITTING MACHINE OPERATOR 21 This nucleic acid amplificat ion test was developed and its performance characteristics determined by [employer]. Nucleic acid amplification tests include RT-PCR and [...] developed and its performance characteristics determined by [employer]. Nucleic acid amplification tests include RT-PCR and [...] developed and its performance characteristics determined by [employer]. Nucleic acid amplification tests include RT-PCR and [...] assay. Procedures Date Code Description Status 05/07/2021 96214 Office/Outpatient Established Lo w MDM 20-29 Min Completed 05/07/2021 30429 Office/Outpatient New Low MDM 30 -44 Minutes Completed 05/07/2021 77850 Admin Patient Focused Health Ris k Assessment Instrument Completed 05/07/2021 18094 Brief Emotional/Beha v Assessment W/ Scoring Doc Per Standard Inst Completed 04/30/2021 80939 Office/Outpatient Established Mo d MDM 30-39 Min Completed 04/18/2021 47929 Office Visit New Level 1 [facility] ed 04/13/2021 87069 Office/Outpatient Established Lo w MDM 20-29 Min Completed 04/13/2021 82273 Pulse Oximetry Single Determinat ion Completed 02/04/2021 19912 Office/Outpatient Established Lo w MDM 20-29 Min Completed 01/27/2021 21327 Office/Outpatient Established Mo d MDM 30-39 Min Completed 12/24/2020 57981 Office/Outpatient Established Lo w MDM 20-29 Min Completed 12/21/2020 62894 Office/Outpatient Established Lo w MDM 20-29 Min Completed 12/13/2020 72173 Office/Outpatient Established Lo w MDM 20-29 Min Completed 11/30/2020 69940 Office Visit [facility] 1 [facility] ed Medical Devices Description No Information [...] current episod e mixed, unspecified Amarameño Velazquez [facility] 04/11/2021 F12.20 Cannabis dependence, uncomplicat ed Amara Marcus [facility] 04/11/2021 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, in remission Alec urena Marcus [facility] 03/12/2021 F31.60 Bipolar disorder, current episod e mixed, unspecified Amara Marcus [facility] 03/12/2021 F12.20 Cannabis dependence, uncomplicat ed Amara Marcus [facility] 03/12/2021 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, in remission Alec urena Marcus [facility] 02/05/2021 F31.60 Bipolar disorder, current episod e mixed, unspecified Amara Velazquez [facility] 02/05/2021 F12.20 Cannabis dependence, uncomplicat ed Amara Marcus [facility] 02/05/2021 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, in remission Alec Velazquez [facility] 02/04/2021 G43.009 Migraine without aur [...] M62.830 Muscle spasm of back Yoni Medel, PHYSICAL LABORATORY ASSISTANT 12/21/2020 G43.009 Migraine without aur a, not intractable, without status migrainosus Juliana Hogan PA-C 12/13/2020 R05 Cough Chiki Baldwin , PHYSICAL LABORATORY ASSISTANT 12/04/2020 F31.60 Bipolar disorder, current episod e [...] 3:00 pm - EM Muñiz [facility] at [facility] * 08/14/2021 1:00 pm - Narinder Lima MD at [facility] * 05/29/2021 10:00 am - Alma Simons NP at [facility] * 06/10/2021 2:40 pm - Ry Rodriguez PA-C at [facility] * 06/10/2021 2:00 pm - EM Muñiz, DIANDRA at [facility] 04/18/2021 - Antwan Ragland PA-C* J06.9 Acute upper respiratory infection, unspecified Functional Status Description No Information Available Mental Status Description No Information Available Referrals Description No Information Available
--- OUTSIDE RECORDS SUMMARY | 2021-06-21 20:59 | CCD | Continuity of Care Document ---
Author Author Houston YEPEZ VOCATIONAL COORDINATOR Organization Unknown Address [address] [place] [address] Phone [phone] Care Team Providers Care Editor Managing Newspaper Name Role Phone Narinder Lima M.D. AUTM [phone] [facility] AUTM [phone] [facility] AUTM [phone] [facility] AUTM Problems Active [...] Garret Donohue 08/09/2020 Vitamin D (Ergocalciferol) 1.25mg (97956 Ut) Capsules 1 cap by mouth every two weeks 6caps E55.9 Narinder Lima MD 05/13/2020 Montelukast Sodium 10mg Tablets 1 by mouth every day 90tabs Gray30.9 Narinder Lima MD 05/13/2020 History Medications Rizatriptan [...] CPT Code Status Date Vaccine Lot # [id number] Given 05/13/2020 Influenza (>= 6 Months) P.F. Vaccine [id number] Given 06/14/2018 Influenza (>= 6 Months) P.F. [...] Date Facility Test Result H/L Range Note Laboratory test finding 05/12/2021 [facility] Covid-19 <pending> Affirm Vaginitis Panel 05/07/2021 [facility] [...] AB QL Serum <pending> Bacterial Vaginosis 05/07/2021 [facility] Source: Genital 1 Ladi species Positive Abnormal Negative Gardnerella vaginalis Positive Abnormal Negative Trichomonas vaginalis Negative Negative Chlamydia GC/Trich 05/07/2021 [facility] Source: Genital Chlamydia by Bev Negative Negative Gonococcus by Bev Negative Negative Trich vag by Bev Negative Negative Ua With Reflex To Ua Culture 05/07/[address] [facility] spital Ua Reflex To Ua Cult (SEE NOTE) 2, 3 Source R Color yellow Normal: Yellow Clarity hazy Normal: Clear Spec [place] 1.020 1.001 - 1.030 pH 6 5 [...] 1+ Normal: None Seen Yeast Few Abnormal 4 Covid-19 04/13/2021 [facility] Sars-CoV-2, Bev Not Detected Not Detected 5 Sars-CoV-2, Bev 2 Day Tat Performed CBC With Differential 03/26/2021 [facility] White Blood Count 9.9 10 [...] 36.0-66.0 Lymph % 27.1 % Normal 24.0-44.0 [place] % 6.4 % Normal 2.0-8.0 Eos % 1.5 % Normal 0.0-3.0 Baso % 0.3 % Normal 0.0-1.0 Immature Granulocyte % 0.4 % Normal 0-3.0 Nucleated Red Blood Cell % 0.0 % Normal 0-0 Neutrophils # 6.4 10 Normal 1.5-8.5 Lymph # 2.7 10 Normal 1.5-5.0 [place] # 0.6 10 Normal 0.0-0.8 Eos # 0.2 10 Normal 0.0-0.5 Baso # 0.0 10 Normal 0.0-0.2 Laboratory test finding 03/26/2021 [facility] Ferritin 73 NG/ML Normal 8-252 6 Total Iron Binding Capacit 03/26/2021 [facility] Iron (Fe) 78 g/dL Normal 50-170 Total Iron Binding Capacity 256 g/dL Normal 250-450 Percent Saturation 30.5 % Normal 13.2-45.0 Comprehensive Metabolic Profil 03/26/2021 [facility] Glucose, Fasting 109 mg/dL High 70-100 Blood Urea Nitrogen 14 mg/dL Normal 7-18 Creatinine For GFR 0.66 mg/dL Normal 0.55-1.30 Glomerular Filtration Rate > 60.0 Normal >60 7 Sodium Level 141 mEq/L Normal 136-145 Potassium [...] Albumin/Globulin Ratio 1.2 Normal 1.2-2.2 Covid-19 02/07/2021 [facility] Sars-CoV-2, Bev Not Detected Not Detected 8 Sars-CoV-2, Bev 2 Day Tat Performed Laboratory test finding 02/04/2021 [facility] Ferritin Fallon 63.5 ng/mL 3.0 - 105 9 Iron Binding Capacity 02/04/2021 [facility] Iron 58 g/dL 42 - 135 Uibc 173 g/dL 112 - 347 Tibc 231 g/dL Low 250 - 450 Iron Sat 25 % CBC W/Automated Diff 02/04/2021 [facility] CBC W/Automated Diff (SEE NOTE) 10 WBC 10.1 10^3/uL 4.2 - 11.0 RBC [...] 80.0 Lymph 34.6 % 25.0 - 40.0 [place] 7.5 % 3.0 - 8.0 Eos 2.8 % 0.0 - 7.0 Baso 0.4 % 0.0 - 2.5 %Ig 0.4 % High 0.0 - 0.0 %NRBC 0.0 % 0.0 - 0.0 #Neut 5.48 10^3/uL 2.00 - 6.90 #Lymph 3.49 10^3/uL High 0.60 - 3.40 #[place] 0.76 10^3/uL 0.00 - 0.90 #Eos 0.28 10^3/uL 0.00 - 0.70 #Baso 0.04 10^3/uL 0.00 - 0.20 #Ig 0.04 10^3/uL 0.00 - 0.10 #NRBC 0.00 10^3/uL 0.00 - 0.00 Manual Diff NOT INDICATED RBC Morph NOT INDICATED Laboratory test finding 02/04/2021 [facility] Vitamin B12 Serum 204 pg/mL Low 232 - 1245 Vitamin D (25-Hydroxy) 19 NG/ML 11 Comprehensive Metabolic Panel 02/04/2021 [facility] Comprehensive Metabo (SEE NOTE) 12 Sodium 138 mEq/L 134 - 153 Potassium [...] >60 mL/min Afr Amer GFR >60 mL/min 13 Laboratory test finding 01/27/2021 [facility] T4 - Free 1.27 ng/dL 0.93 - 1.70 TSH Highly Sensitive 0.34 uIU/mL Low 0.47 - 5.01 Inhouse-Influenza A&B Rna Prob 12/13/2020 In Office Influenza Virus A QL PCR negative Negative Influenza Virus B QL PCR negative Negative Laboratory test finding 12/13/2020 [facility] Coronavirus Covid-19 Not Detected Not Detected 14 Covid-19 11/21/2020 [facility] Sars-CoV-2, Bev Not Detected Not Detected 15 Sars-CoV-2, Bev 2 Day Tat Performed 1 {SOURCE: Genital 2 .~.~R30.0 3 URINALYSIS 4 HYPAE YEAST 5 This nucleic acid amplificat ion test was developed and its performance characteristics determined by [employer]. Nucleic acid amplification tests include RT-PCR and [...] negative (not detected) result in this assay. 6 note:<nlbl:[facility]> 7 Units are mL/min/1.73 m2 Chronic Kidney Disease Staging per NKF: Stage I & II GFR >=60 Normal to Mildly Decreased Stage III GFR 30-59 Moderately Decreased Stage IV GFR 15-29 Severely Decreased Stage V GFR <15 Very Little GFR Left ESRD GFR <15 on SECURITY ANALYST 8 This nucleic acid amplificat ion test was developed and its performance characteristics determined by [employer]. Nucleic acid amplification tests include RT-PCR and [...] (not detected) result in this assay. 9 Is patient fasting? N 10 COMPLETE BLOOD COUNT 11 VITAMIN-D(25HYDROXY) Deficiency: <=20 ng/ml Insufficiency: 21-29 ng/ml Preferred level: => 30 ng/ml 12 COMPREHENSIVE METABOLIC PANE L 13 Male GFR Interprentation 20-49 yrs >60 mL/min Normal 50-59 yrs >56 mL/min Normal 60-69 yrs >49 mL/min Normal 70-79yrs >42 mL/min Normal 80 and above >35 mL/min Normal Female GFR Interpretation 20-39 yrs >60 mL/min Normal 40-49 yrs >58 mL/min Normal 50-59 yrs >51 mL/min Normal 60-69 yrs >45 mL/min Normal 70-79 yrs >39 mL/min Normal 80 and above >32 mL/min Normal 14 This nucleic acid amplificat ion test was developed and its performance characteristics determined by [employer]. Nucleic acid amplification tests include RT-PCR and [...] negative (not detected) result in this assay. 15 This nucleic acid amplificat ion test was developed and its performance characteristics determined by [employer]. Nucleic acid amplification tests include RT-PCR and [...] assay. Procedures Date Code Description Status 05/07/2021 73925 Office/Outpatient Established Lo w MDM 20-29 Min Completed 05/07/2021 64443 Office/Outpatient New Low MDM 30 -44 Minutes Completed 05/07/2021 71157 Admin Patient Focused Health Ris k Assessment Instrument Completed 05/07/2021 30888 Brief Emotional/Beha v Assessment W/ Scoring Doc Per Standard Inst Completed 04/30/2021 41320 Office/Outpatient Established Mo d MDM 30-39 Min Completed 04/18/2021 62846 Office Visit New Level 1 [facility] 04/13/2021 20895 Office/Outpatient Established Lo w MDM 20-29 Min Completed 04/13/2021 35268 Pulse Oximetry Single Determinat ion Completed 02/04/2021 63587 Office/Outpatient Established Lo w MDM 20-29 Min Completed 01/27/2021 72324 Office/Outpatient Established Mo d MDM 30-39 Min Completed 12/24/2020 18292 Office/Outpatient Established Lo w MDM 20-29 Min Completed 12/21/2020 44260 Office/Outpatient Established Lo w MDM 20-29 Min Completed 12/13/2020 43444 Office/Outpatient Established Lo w MDM 20-29 Min Completed 11/30/2020 52667 Office Visit New Level 1 [facility] Medical Devices Description No Information Available Encounters Type Date Location Provider Dx Diagnosis Office Visit 05/07/2021 2:15[address] [facility] Alma Simons NP B37.3 Candidiasis of vulva and vagina Z11.3 Encntr screen for infections w sexl mode of transmiss Assessments Date Code Description Provider 05/07/2021 B37.3 Candidiasis of vulva and vagina Alma Simons, VOCATIONAL COORDINATOR 05/07/2021 Z11.3 Encounter for screen ing for infections with a predominantly sexual mode of transmission Alma O'joshua, VOCATIONAL COORDINATOR 05/07/2021 G43.009 Migraine without aur a, not [...] gastroenteritis and c olitis, unspecified Emmie Baker, TOMAS 04/11/2021 F31.60 Bipolar disorder, current episod e [...] 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, in remission Alec Velazquez [facility], [facility] 02/04/2021 G43.009 Migraine without aur a, not intractable, without status migrainosus Narinder Lima MD 02/04/2021 E55.9 Vitamin D deficiency, unspecifie d Narinder Lima MD 02/04/2021 J30.9 Allergic rhinitis, unspecified H arjenna Lima MD 02/04/2021 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 Narinder Lima MD 02/04/2021 E61.1 Iron deficiency Narinder Lima MD 01/27/2021 F31.60 Bipolar disorder, current episod e mixed, unspecified Ry Rodriguez PA-C 01/27/2021 F12.20 Cannabis dependence, uncomplicat ed Ry Rodriguez PA-C 01/27/2021 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, in remission Santiago Rodriguez PA-C 01/01/2021 F31.60 Bipolar disorder, current episod e mixed, unspecified Amara Velazquez [facility] 01/01/2021 F12.20 Cannabis dependence, uncomplicat ed Amara Velazquez [facility] 01/01/2021 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, in remission Alec Velazquez [facility] 12/24/2020 M62.830 Muscle spasm of back Yoni Medel, VOCATIONAL COORDINATOR 12/21/2020 G43.009 Migraine without aur a, not intractable, without status migrainosus Juliana Hogan PA-C 12/13/2020 R05 Cough Star ADarlene Yepez , VOCATIONAL COORDINATOR 12/04/2020 F31.60 Bipolar disorder, current episod e mixed, unspecified Amara Velazquez [facility] 12/04/2020 F12.20 Cannabis dependence, uncomplicat ed Amara Velazquez [facility] 12/04/2020 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, in remission Alec Velazquez [facility] 11/30/2020 G43.009 Migraine without aur a, not intractable, without status migrainosus Jsoe F Negro PA-C 11/13/2020 F31.60 Bipolar disorder, current episod e mixed, unspecified EM Muñiz, DIANDRA 11/13/2020 F12.20 Cannabis dependence, uncomplicat ed EM Muñiz, DIANDRA 11/13/2020 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, in remission EM Greco, DIANDRA Plan of Treatment Future Appointment(s):* 08/14/2021 1:00 pm - Narinder Lima MD at [facility] * 05/29/2021 10:00 am - Alma Simons NP at [facility] * 06/10/2021 2:40 pm - Ry Rodriguez PA-C at [facility] * 06/10/2021 2:00 pm - EM Muñiz [facility] at [facility] 04/18/2021 - Antwan Ragland PA-C* J06.9 Acute upper respiratory infection, unspecified Functional Status Description No Information Available Mental Status Description No Information Available Referrals Description No Information Available
--- OUTSIDE RECORDS SUMMARY | 2021-06-21 20:59 | CCD | Continuity of Care Document ---
Author Houston Resendez [facility] Organization Unknown Address [facility] [address] [place] [address] Phone [phone] Care Team Providers Care Industrial Services Worker Name Role Phone Narinder Lima M.D. AUTM [phone] [facility] AUTM [facility] AUTM [phone] [facility] AUTM Problems Active [...] Garret Donohue 08/09/2020 Vitamin D (Ergocalciferol) 1.25mg (85617 Ut) Capsules 1 cap by mouth every two weeks 6caps E55.9 Narinder Lima MD 05/13/2020 Montelukast Sodium 10mg Tablets 1 by mouth every day 90tabs J30.9 Narinder iLma MD 05/13/2020 History Medications Rizatriptan Benzoate 10mg [...] CPT Code Status Date Vaccine Lot # 00864 Given 05/13/2020 Influenza (>= 6 Months) P.F. Vaccine [id number] Given 06/14/2018 Influenza (>= 6 Months) P.F. [...] Test Result H/L Range Note Covid-19 05/12/2021 [facility] Sars-CoV-2, Bev Not Detected Not Detected [...] AB QL Serum <pending> Bacterial Vaginosis 05/07/2021 [facility] Source: Genital 3 Ladi species Positive Abnormal Negative Gardnerella vaginalis Positive Abnormal Negative Trichomonas vaginalis Negative Negative Chlamydia GC/Trich 05/07/2021 [facility] Source: Genital Chlamydia by Bev Negative Negative Gonococcus by Bev Negative Negative Trich vag by Bev Negative Negative Ua With Reflex To Ua Culture 05/07/2021 [facility] spital Ua Reflex To Ua Cult (SEE NOTE) 4, 5 Source R Color yellow Normal: Yellow Clarity hazy Normal: Clear Spec [place] 1.020 1.001 - 1.030 pH 6 5 [...] Yeast Few Abnormal 6 Cuture Urine 05/07/2021 [facility] Culture Urine (SEE NOTE) 7 Covid-19 04/13/2021 [facility] Sars-CoV-2, Bev Not Detected Not Detected 8 Sars-CoV-2, Bev 2 Day Tat Performed CBC With Differential 03/26/2021 [facility] White Blood Count 9.9 10 Normal [...] 36.0-66.0 Lymph % 27.1 % Normal 24.0-44.0 [place] % 6.4 % Normal 2.0-8.0 Eos % 1.5 % Normal 0.0-3.0 Baso % 0.3 % Normal 0.0-1.0 Immature Granulocyte % 0.4 % Normal 0-3.0 Nucleated Red Blood Cell % 0.0 % Normal 0-0 Neutrophils # 6.4 10 Normal 1.5-8.5 Lymph # 2.7 10 Normal 1.5-5.0 [place] # 0.6 10 Normal 0.0-0.8 Eos # 0.2 10 Normal 0.0-0.5 Baso # 0.0 10 Normal 0.0-0.2 Laboratory test finding 03/26/2021 [facility] Ferritin 73 NG/ML Normal 8-252 9 Total Iron Binding Capacit 03/26/2021 [facility] Iron (Fe) 78 g/dL Normal 50-170 Total Iron Binding Capacity 256 g/dL Normal 250-450 Percent Saturation 30.5 % Normal 13.2-45.0 Comprehensive Metabolic Profil 03/26/2021 [facility] Glucose, Fasting 109 mg/dL High 70-100 [...] Albumin/Globulin Ratio 1.2 Normal 1.2-2.2 Covid-19 02/07/2021 [facility] Sars-CoV-2, Bev Not Detected Not Detected 11 Sars-CoV-2, Bev 2 Day Tat Performed Laboratory test finding 02/04/2021 [facility] l Ferritin Fallon 63.5 ng/mL 3.0 - 105 12 Iron Binding Capacity 02/04/2021 [facility] Iron 58 g/dL 42 - 135 Uibc 173 g/dL 112 - 347 Tibc 231 g/dL Low 250 - 450 Iron Sat 25 % CBC W/Automated Diff 02/04/2021 [facility] CBC W/Automated Diff (SEE NOTE) 13 [...] 80.0 Lymph 34.6 % 25.0 - 40.0 [place] 7.5 % 3.0 - 8.0 Eos 2.8 % 0.0 - 7.0 Baso 0.4 % 0.0 - 2.5 %Ig 0.4 % High 0.0 - 0.0 %NRBC 0.0 % 0.0 - 0.0 #Neut 5.48 10^3/uL 2.00 - 6.90 #Lymph 3.49 10^3/uL High 0.60 - 3.40 #[place] 0.76 10^3/uL 0.00 - 0.90 #Eos 0.28 10^3/uL 0.00 - 0.70 #Baso 0.04 10^3/uL 0.00 - 0.20 #Ig 0.04 10^3/uL 0.00 - 0.10 #NRBC 0.00 10^3/uL 0.00 - 0.00 Manual Diff NOT INDICATED RBC Morph NOT INDICATED Laboratory test finding 02/04/2021 [facility] Vitamin B12 Serum 204 pg/mL Low 232 - 1245 Vitamin D (25-Hydroxy) 19 NG/ML 14 Comprehensive Metabolic Panel 02/04/2021 [facility] ospital Comprehensive Metabo (SEE NOTE) 15 Sodium [...] >60 mL/min 16 Laboratory test finding 01/27/2021 [facility] T4 - Free 1.27 ng/dL 0.93 - 1.70 TSH Highly Sensitive 0.34 uIU/mL Low 0.47 - 5.01 Inhouse-Influenza A&B Rna Prob 12/13/2020 In Office Influenza Virus A QL PCR negative Negative Influenza Virus B QL PCR negative Negative Laboratory test finding 12/13/2020 [facility] Coronavirus Covid-19 Not Detected Not Detected 17 Covid-19 11/21/2020 [facility] Sars-CoV-2, Bev Not Detected Not Detected 18 Sars-CoV-2, Bev 2 Day Tat Performed 1 .~.~Z11.59 2 This nucleic acid amplificat ion test was developed and its performance characteristics determined by [email or web address]. Nucleic acid amplification tests include RT-PCR and [...] URINALYSIS 6 HYPAE YEAST 7 _CULTURE URINE_ ^$170956 ^^773946 $$330490 ^^415487 $$177542 $$010424 $$511508 $$753715 $$576483 $$393148 $$549511 $$466337 $$026129 $$578082 $$861833 $$600810 $$425468 $$923090 $$969402 $$836795 $$709569 $$960027 $$650044 $$037081 $$959300 $$146607 $$993716 ^^237309 $$825945 $$146809 $$124813 -- Continued on next page -- Patient: POORNIMA Denney Order: [id number] Page 2 Culture: CULTURE URINE Status: Final -- Continued on next page -- Patient: POORNIMA Denney Order: [id number] Page 2 Culture: CULTURE URINE Status: Prelim -- Continued on next page -- Patient: POORNIMA Denney Order: [id number] Page 2 Culture: CULTURE URINE Status: Prelim $$[id number] $$[id number] REPORTED DATE/TIME: 05/14/2021 12:06 Culture: CULTURE URINE [...] coli Flag: A Patient: POORNIMA Denney Order: [id number] Page 3 Culture: CULTURE URINE Status: Final [...] S S . . . . . .82621-1 Gentamicin S S . . . . . .267-5 Imipenem S S . . . . . .279-0 Levofloxacin S S . . . . . .21681-0 Meropenem S S . . . . . .6652-2 Nitrofurantoin S S . . . . . .363-2 Piperacillin/Tazobactam S S . . . . . .412-7 Tetracycline S S . . . . . .496-0 Tobramycin S S . . . . . .508-2 Trimethoprim/Sulfa S S . . . . . .516-5 P1 Test performed by: [employer] [facility] #: [id number] [address] [place] [address] [id number] [facility] [address] Engine Repairer Service : Armando Lang MD NPI #: [place] : 05/12/21.0645.XMT.SENT REF 05/13/21.1623.XMT.SENT REF 05/14/21.1406.XMT.SENT REF 8 This nucleic acid amplificat ion test was developed and its performance characteristics determined by [email or web address]. Nucleic acid amplification tests include RT-PCR and [...] Little GFR Left ESRD GFR <15 on SHODDY MILL WORKER 11 This nucleic acid amplificat ion test was developed and its performance characteristics determined by [email or web address]. Nucleic acid amplification tests include RT-PCR and [...] developed and its performance characteristics determined by [email or web address]. Nucleic acid amplification tests include RT-PCR and [...] developed and its performance characteristics determined by [email or web address]. Nucleic acid amplification tests include RT-PCR and [...] assay. Procedures Date Code Description Status 05/07/2021 81025 Office/Outpatient Established Lo w MDM 20-29 Min Completed 05/07/2021 44670 Office/Outpatient New Low MDM 30 -44 Minutes Completed 05/07/2021 24371 Admin Patient Focused Health Ris k Assessment Instrument Completed 05/07/2021 93066 Brief Emotional/Beha v Assessment W/ Scoring Doc Per Standard Inst Completed 04/30/2021 70765 Office/Outpatient Established Mo d MDM 30-39 Min Completed 04/18/2021 18602 Office Visit New Level 1 [facility] ed 04/13/2021 99998 Office/Outpatient Established Lo w MDM 20-29 Min Completed 04/13/2021 77192 Pulse Oximetry Single Determinat ion Completed 02/04/2021 26725 Office/Outpatient Established Lo w MDM 20-29 Min Completed 01/27/2021 64745 Office/Outpatient Established Mo d MDM 30-39 Min Completed 12/24/2020 91773 Office/Outpatient Established Lo w MDM 20-29 Min Completed 12/21/2020 25423 Office/Outpatient Established Lo w MDM 20-29 Min Completed 12/13/2020 29771 Office/Outpatient Established Lo w MDM 20-29 Min Completed 11/30/2020 09975 Office Visit New Level 1 [facility] ed Medical Devices Description No Information Available Encounters Description No Information Available Assessments Date Code Description Provider 05/07/2021 B37.3 Candidiasis of vulva and vagina Alma Simons NP 05/07/2021 Z11.3 Encounter for screen ing for infections with a predominantly sexual mode of transmission Alma Simons NP 05/07/2021 G43.009 Migraine without aur a, not intractable, without status migrainosus Narinder I. Lima, MD 05/07/2021 E55.9 Vitamin D deficiency, unspecifie d Narinder Lima MD 05/07/2021 D51.9 Vitamin B12 deficiency anemia, u nspecified Narinder Lima MD 04/30/2021 F31.60 Bipolar disorder, current episod e mixed, unspecified HANSEL [facility] 04/30/2021 F12.20 Cannabis dependence, uncomplicat ed Ry Rodriguez, HANSELC 04/30/2021 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, in remission Santiago Rodriguez, HANSELC 04/18/2021 J06.9 Acute upper respiratory infectio n, unspecified Antwan Ragland, HANSELC 04/13/2021 A09 Infectious gastroenteritis and c olitis, unspecified Emmie Baker, HANSELC 04/11/2021 F31.60 Bipolar disorder, current episod e mixed, unspecified Amara Velazquez LM, [facility] 04/11/2021 F12.20 Cannabis dependence, uncomplicat ed Amara Velazquez [facility] 04/11/2021 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, in remission Alec Velazquez LM, [facility] 03/12/2021 F31.60 Bipolar disorder, current episod e mixed, unspecified Amara Velazquez [facility] 03/12/2021 F12.20 Cannabis dependence, uncomplicat ed Amara Velazquez [facility] 03/12/2021 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, in remission Alec Velazquez LM, [facility] 02/05/2021 F31.60 Bipolar disorder, current episod e mixed, unspecified Amara Vealzquez [facility] 02/05/2021 F12.20 Cannabis dependence, uncomplicat ed Amara Velazquez [facility] 02/05/2021 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, in remission [...] M62.830 Muscle spasm of back Yoni Medel, PLASTERER APPRENTICE 12/21/2020 G43.009 Migraine without aur a, not intractable, without status migrainosus Juliana Hogan PA-C 12/13/2020 R05 Cough Chiki Baldwin , PLASTERER APPRENTICE 12/04/2020 F31.60 Bipolar disorder, current episod e mixed, unspecified EM Muñiz, [facility] 12/04/2020 F12.20 Cannabis dependence, uncomplicat ed EM Muñiz, [facility] 12/04/2020 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, in remission EM Greco, [facility] 11/30/2020 G43.009 Migraine without aur a, not intractable, without status migrainosus Jose F Negro PA-C 11/13/2020 F31.60 Bipolar disorder, current episod e mixed, unspecified EM Muñiz, [facility] 11/13/2020 F12.20 Cannabis dependence, uncomplicat ed EM Muñiz, CAS[facility] 11/13/2020 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, in remission EM Greco, CAS[facility] Plan of Treatment Future Appointment(s):* 05/28/2021 3:00 pm - EM Muñiz, DIANDRA at [facility] * 05/15/2021 10:40 am - Ry Rodriguez PA-C at [facility] * 08/14/2021 1:00 pm - Narinder Lima MD at [facility] * 05/29/2021 10:00 am - Alma Simons NP at [facility] * 06/10/2021 2:40 pm - Ry Rodriguez PA-C at [facility] * 06/10/2021 2:00 pm - EM Muñiz, DIANDRA at [facility] 04/18/2021 - Antwan Ragland PA-C* J06.9 Acute upper respiratory infection, unspecified Functional Status Description No Information Available Mental Status Description No Information Available Referrals Description No Information Available
--- OUTSIDE RECORDS SUMMARY | 2021-06-21 20:59 | CCD | Continuity of Care Document ---
Author Author Houston LIMA M.D. Organization Unknown Address [address] [place] [id number] Phone [phone] Care Team Providers Care Information Security Engineer Name Role Phone Narinder Lima M.D. AUTM [phone] [facility] [address] [facility] AUTM [facility] AUTM [facility] AUTM Problems Active Problems [...] Tablets 1 by mouth every day 90tabs Narindre Lima MD 03/24/2021 Rizatriptan Benzoate 10mg Tablets [...] Garret Donohue 08/09/2020 Vitamin D (Ergocalciferol) 1.25mg (23543 Ut) Capsules 1 cap by mouth every [...] CPT Code Status Date Vaccine Lot # [id number] Given 05/13/2020 Influenza (>= 6 Months) P.F. Vaccine [id number] Given 06/14/2018 Influenza (>= 6 Months) P.F. [...] Date Facility Test Result H/L Range Note Chlamydia/GC 05/07/2021 [facility] Chlam Trach QL [...] Choice T Pallidum AB QL Serum <pending> [facility] (SEE NOTE) 1, 2 Source R Color yellow Normal: Yellow Clarity hazy Normal: Clear Spec [place] 1.020 1.001 - 1.030 pH 6 5 [...] 1+ Normal: None Seen Yeast Few Abnormal 3 Affirm Vaginitis Panel 05/07/2021 [facility] Z#Other Observations <pending> Covid-19 04/13/2021 [facility] Sars-CoV-2, Bev Not Detected Not Detected 4 Sars-CoV-2, Bev 2 Day Tat Performed Total Iron Binding Capacit 03/26/2021 [facility] Iron (Fe) 78 g/dL Normal 50-170 Total Iron Binding Capacity 256 g/dL Normal 250-450 Percent Saturation 30.5 % Normal 13.2-45.0 Laboratory test finding 03/26/2021 [facility] Ferritin 73 NG/ML Normal 8-252 5 Comprehensive Metabolic Profil 03/26/2021 [facility] Glucose, Fasting 109 mg/dL High 70-100 [...] 1.2 Normal 1.2-2.2 CBC With Differential 03/26/2021 [facility] White Blood Count 9.9 10 Normal [...] 36.0-66.0 Lymph % 27.1 % Normal 24.0-44.0 Patrick % 6.4 % Normal 2.0-8.0 Eos % 1.5 % Normal 0.0-3.0 Baso % 0.3 % Normal 0.0-1.0 Immature Granulocyte % 0.4 % Normal 0-3.0 Nucleated Red Blood Cell % 0.0 % Normal 0-0 Neutrophils # 6.4 10 Normal 1.5-8.5 Lymph # 2.7 10 Normal 1.5-5.0 Patrick # 0.6 10 Normal 0.0-0.8 Eos # 0.2 10 Normal 0.0-0.5 Baso # 0.0 10 Normal 0.0-0.2 Covid-19 02/07/2021 [facility] Sars-CoV-2, Bev Not Detected Not Detected 7 Sars-CoV-2, Bev 2 Day Tat Performed Laboratory test finding 02/04/2021 [facility] Ferritin Fallon 63.5 ng/mL 3.0 - 105 8 Iron Binding Capacity 02/04/2021 [facility] Iron 58 g/dL 42 - 135 Uibc 173 g/dL 112 - 347 Tibc 231 g/dL Low 250 - 450 Iron Sat 25 % CBC W/Automated Diff 02/04/2021 [facility] CBC W/Automated Diff (SEE NOTE) 9 WBC 10.1 10^3/uL 4.2 - 11.0 RBC [...] 80.0 Lymph 34.6 % 25.0 - 40.0 Patrick 7.5 % 3.0 - 8.0 Eos 2.8 % 0.0 - 7.0 Baso 0.4 % 0.0 - 2.5 %Ig 0.4 % High 0.0 - 0.0 %NRBC 0.0 % 0.0 - 0.0 #Neut 5.48 10^3/uL 2.00 - 6.90 #Lymph 3.49 10^3/uL High 0.60 - 3.40 #Patrick 0.76 10^3/uL 0.00 - 0.90 #Eos 0.28 10^3/uL 0.00 - 0.70 #Baso 0.04 10^3/uL 0.00 - 0.20 #Ig 0.04 10^3/uL 0.00 - 0.10 #NRBC 0.00 10^3/uL 0.00 - 0.00 Manual Diff NOT INDICATED RBC Morph NOT INDICATED Laboratory test finding 02/04/2021 [facility] Vitamin B12 Serum 204 pg/mL Low 232 - 1245 Vitamin D (25-Hydroxy) 19 NG/ML 10 Comprehensive Metabolic Panel 02/04/2021 [facility] Comprehensive Metabo (SEE NOTE) 11 Sodium 138 [...] GFR >60 mL/min 12 Laboratory test finding 01/27/2021 [facility] T4 - Free 1.27 ng/dL 0.93 - 1.70 TSH Highly Sensitive 0.34 uIU/mL Low 0.47 - 5.01 Inhouse-Influenza A&B Rna Prob 12/13/2020 In Office Influenza Virus A QL PCR negative Negative Influenza Virus B QL PCR negative Negative Laboratory test finding 12/13/2020 [facility] Coronavirus Covid-19 Not Detected Not Detected 13 Covid-19 11/21/2020 [facility] Sars-CoV-2, Bev Not Detected Not Detected 14 Sars-CoV-2, Bev 2 Day Tat Performed 1 .~.~R30.0 2 URINALYSIS 3 HYPAE YEAST 4 This nucleic acid amplificat ion test was developed and its performance characteristics determined by [employer]. Nucleic acid amplification tests include RT-PCR and [...] negative (not detected) result in this assay. 5 note:<nlbl:[facility] ed> 6 Units are mL/min/1.73 m2 Chronic Kidney Disease Staging per NKF: Stage I & II GFR >=60 Normal to Mildly Decreased Stage III GFR 30-59 Moderately Decreased Stage IV GFR 15-29 Severely Decreased Stage V GFR <15 Very Little GFR Left ESRD GFR <15 on COOKEE 7 This nucleic acid amplificat ion test was developed and its performance characteristics determined by [employer]. Nucleic acid amplification tests include RT-PCR and [...] negative (not detected) result in this assay. 8 Is patient fasting? N 9 COMPLETE BLOOD COUNT 10 VITAMIN-D(25HYDROXY) Deficiency: <=20 ng/ml Insufficiency: 21-29 ng/ml Preferred level: => 30 ng/ml 11 COMPREHENSIVE METABOLIC PANE L 12 Male [...] 80 and above >32 mL/min Normal 13 This nucleic acid amplificat ion test was developed and its performance characteristics determined by [employer]. Nucleic acid amplification tests include RT-PCR and [...] negative (not detected) result in this assay. 14 This nucleic acid amplificat ion test was developed and its performance characteristics determined by [employer]. Nucleic acid amplification tests include RT-PCR and [...] assay. Procedures Date Code Description Status 05/07/2021 30790 Office/Outpatient Established Lo w MDM 20-29 Min Completed 05/07/2021 20735 Office/Outpatient New Low MDM 30 -44 Minutes Completed 05/07/2021 13094 Admin Patient Focused Health Ris k Assessment Instrument Completed 05/07/2021 12068 Brief Emotional/Beha v Assessment W/ Scoring Doc Per Standard Inst Completed 04/30/2021 19577 Office/Outpatient Established Mo d MDM 30-39 Min Completed 04/18/2021 02070 Office Visit New Level 1 [facility] ed 04/13/2021 06048 Office/Outpatient Established Lo w MDM 20-29 Min Completed 04/13/2021 90435 Pulse Oximetry Single Determinat ion Completed 02/04/2021 90489 Office/Outpatient Established Lo w MDM 20-29 Min Completed 01/27/2021 20373 Office/Outpatient Established Mo d MDM 30-39 Min Completed 12/24/2020 67648 Office/Outpatient Established Lo w MDM 20-29 Min Completed 12/21/2020 93045 Office/Outpatient Established Lo w MDM 20-29 Min Completed 12/13/2020 52271 Office/Outpatient Established Lo w MDM 20-29 Min Completed 11/30/2020 81898 Office Visit Count Includes [facility] ed Medical Devices Description No Information Available Encounters Type Date Location Provider Dx Diagnosis Office Visit 05/07/2021 2:15p [facility] Alma Simons NP B37.3 Candidiasis of vulva and vagina Z11.3 Encntr screen for infections w sexl mode of transmiss Office Visit 05/07/2021 1:00p Family Practice Narinder Lima MD G4 3.009 Migraine w/o aura, not intractable, w/o status migrainosus E55.9 Vitamin D deficiency, unspec ified D51.9 Vitamin B12 deficiency anemi a, unspecified Assessments Date Code Description Provider 05/07/2021 B37.3 Candidiasis of vulva and vagina Alma Simons NP 05/07/2021 Z11.3 Encounter for screen ing for infections with a predominantly sexual mode of transmission Alma Damian'joshua, [employer]AN DRIVER HELPER 05/07/2021 G43.009 Migraine without aur a, not [...] disorder, current episod e mixed, unspecified EM Muiñz, CASAC 03/12/2021 F12.20 Cannabis dependence, uncomplicat ed EM Muñiz, CASAC 03/12/2021 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, in remission EM Greco, CASAC 02/05/2021 F31.60 Bipolar disorder, current episod e mixed, unspecified EM Muñiz, CASAC 02/05/2021 F12.20 Cannabis dependence, uncomplicat ed Amara Velazquez LM, CASAC 02/05/2021 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, in remission [...] dependence, uncomplicat ed Amara Velazquez LM, CASAC 01/01/2021 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, in remission Alec Velazquez LM, CASAC 12/24/2020 M62.830 Muscle spasm of back Yoni Dsouza vazquez, [employer] 12/21/2020 G43.009 Migraine without aur a, not intractable, without status migrainosus Juliana Hogan, HANSELC 12/13/2020 R05 Cough Chiki Baldwin , [employer] 12/04/2020 F31.60 Bipolar disorder, current episod e mixed, unspecified Amara Velazquez LM, CASAC 12/04/2020 F12.20 Cannabis dependence, uncomplicat ed Amara Velazquez [facility], CASAC 12/04/2020 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, in remission EM Greco, CASAC 11/30/2020 G43.009 Migraine without aur a, not intractable, without status migrainosus HANSEL ButtsC 11/13/2020 F31.60 Bipolar disorder, current episod e mixed, unspecified Amara Velazquez LM, CASAC 11/13/2020 F12.20 Cannabis dependence, uncomplicat ed EM Muñiz, DIANDRA 11/13/2020 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, in remission EM Greco, DIANDRA Plan of Treatment Future Appointment(s):* 08/14/2021 1:00 pm - Narinder Lima MD at [facility] * 05/29/2021 10:00 am - Alma Simons NP at [facility] * 06/10/2021 2:40 pm - Ry Rodriguez PA-C at Behavioral Health * 06/10/2021 2:00 pm - EM Muñiz, DIANDRA at [facility] 05/07/2021 - Narinder Lima MD* G43.009 Migraine without aura, not intractable, without status migrainosus* New Medication:* Emgality 120 mg/ml - give one dose sc monthly. * New Labs:* Comprehensive Metabolic Panel, Ordered: 05/07/21 * Comments:* She has about five headaches a month. Prescribed Emgality 120 mg/mL one dose subcutaneously once a month. * E55.9 Vitamin D deficiency, unspecified* New Labs:* Vitamin D (25-Hydroxy), Ordered: 05/07/21 * Comments:* She is on Vitamin D 1.25 mg twice monthly. Continue to monitor with periodic blood work. * D51.9 Vitamin B12 deficiency anemia, unspecified* New Labs:* Vitamin B12 Serum, Ordered: 05/07/21 * CBC W/Automated Diff, Ordered: 05/07/21 * Iron Binding Capacity, Ordered: 05/07/21 * Iron, Ordered: 05/07/21 * Ferritin Fallon, Ordered: 05/07/21 * Comments:* She is on vitamin B12 1000 mcg one tablet daily. Continue to monitor with periodic blood work. Functional Status Description No Information Available Mental Status Description No Information Available Referrals Description No Information Available
--- OUTSIDE RECORDS SUMMARY | 2021-06-21 20:59 | CCD | Continuity of Care Document ---
Author Author Houston YEPEZ ARCHIVES TECHNICIAN Organization Unknown Address [address] [place] [address] Phone [phone] Care Team Providers Care Distribution Center Administrator Name Role Phone Narinder Lima M.D. AUTM [phone] [facility] AUTM [facility] AUTM [phone] [facility] AUTM [phone] Problems Active Problems Provider Date Migraine with [...] Garret Donohue 08/09/2020 Vitamin D (Ergocalciferol) 1.25mg (54160 Ut) Capsules 1 cap by mouth every [...] CPT Code Status Date Vaccine Lot # [id number] Given 05/13/2020 Influenza (>= 6 Months) P.F. Vaccine [id number] Given 06/14/2018 Influenza (>= 6 Months) P.F. [...] Test Result H/L Range Note Covid-19 05/12/2021 [facility] Sars-CoV-2, Bev Not Detected Not Detected 1, [...] AB QL Serum <pending> Bacterial Vaginosis 05/07/2021 [facility] Source: Genital 3 Ladi species Positive Abnormal Negative Gardnerella vaginalis Positive Abnormal Negative Trichomonas vaginalis Negative Negative Chlamydia GC/Trich 05/07/2021 [facility] Source: Genital Chlamydia by Bev Negative Negative Gonococcus by Bev Negative Negative Trich vag by Bev Negative Negative Ua With Reflex To Ua Culture 05/07/2021 [facility] spital Ua Reflex To Ua Cult (SEE NOTE) 4, 5 Source R Color yellow Normal: Yellow Clarity hazy Normal: Clear Spec [place] 1.020 1.001 - 1.030 pH 6 5 [...] Yeast Few Abnormal 6 Cuture Urine 05/07/2021 [facility] Culture Urine (SEE NOTE) 7 Covid-19 04/13/2021 [facility] Sars-CoV-2, Bev Not Detected Not Detected 8 Sars-CoV-2, Bev 2 Day Tat Performed CBC With Differential 03/26/2021 [facility] White Blood Count 9.9 10 [...] 36.0-66.0 Lymph % 27.1 % Normal 24.0-44.0 Posey % 6.4 % Normal 2.0-8.0 Eos % 1.5 % Normal 0.0-3.0 Baso % 0.3 % Normal 0.0-1.0 Immature Granulocyte % 0.4 % Normal 0-3.0 Nucleated Red Blood Cell % 0.0 % Normal 0-0 Neutrophils # 6.4 10 Normal 1.5-8.5 Lymph # 2.7 10 Normal 1.5-5.0 Posey # 0.6 10 Normal 0.0-0.8 Eos # 0.2 10 Normal 0.0-0.5 Baso # 0.0 10 Normal 0.0-0.2 Laboratory test finding 03/26/2021 [facility] Ferritin 73 NG/ML Normal 8-252 9 Total Iron Binding Capacit 03/26/2021 [facility] Iron (Fe) 78 g/dL Normal 50-170 Total Iron Binding Capacity 256 g/dL Normal 250-450 Percent Saturation 30.5 % Normal 13.2-45.0 Comprehensive Metabolic Profil 03/26/2021 [facility] Glucose, Fasting 109 mg/dL High [...] Albumin/Globulin Ratio 1.2 Normal 1.2-2.2 Covid-19 02/07/2021 [facility] Sars-CoV-2, Bev Not Detected Not Detected 11 Sars-CoV-2, Bev 2 Day Tat Performed Laboratory test finding 02/04/2021 [facility] Ferritin Fallon 63.5 ng/mL 3.0 - 105 12 Iron Binding Capacity 02/04/2021 [facility] Iron 58 g/dL 42 - 135 Uibc 173 g/dL 112 - 347 Tibc 231 g/dL Low 250 - 450 Iron Sat 25 % CBC W/Automated Diff 02/04/2021 [facility] CBC W/Automated Diff (SEE NOTE) 13 WBC [...] 80.0 Lymph 34.6 % 25.0 - 40.0 Posey 7.5 % 3.0 - 8.0 Eos 2.8 % 0.0 - 7.0 Baso 0.4 % 0.0 - 2.5 %Ig 0.4 % High 0.0 - 0.0 %NRBC 0.0 % 0.0 - 0.0 #Neut 5.48 10^3/uL 2.00 - 6.90 #Lymph 3.49 10^3/uL High 0.60 - 3.40 #Posey 0.76 10^3/uL 0.00 - 0.90 #Eos 0.28 10^3/uL 0.00 - 0.70 #Baso 0.04 10^3/uL 0.00 - 0.20 #Ig 0.04 10^3/uL 0.00 - 0.10 #NRBC 0.00 10^3/uL 0.00 - 0.00 Manual Diff NOT INDICATED RBC Morph NOT INDICATED Laboratory test finding 02/04/2021 [facility] Vitamin B12 Serum 204 pg/mL Low 232 - 1245 Vitamin D (25-Hydroxy) 19 NG/ML 14 Comprehensive Metabolic Panel 02/04/2021 [facility]abo (SEE NOTE) 15 Sodium 138 [...] >60 mL/min 16 Laboratory test finding 01/27/2021 [facility] T4 - Free 1.27 ng/dL 0.93 - 1.70 TSH Highly Sensitive 0.34 uIU/mL Low 0.47 - 5.01 Inhouse-Influenza A&B Rna Prob 12/13/2020 In Office Influenza Virus A QL PCR negative Negative Influenza Virus B QL PCR negative Negative Laboratory test finding 12/13/2020 [facility] Coronavirus Covid-19 Not Detected Not Detected 17 Covid-19 11/21/2020 [facility] Sars-CoV-2, Bev Not Detected Not Detected 18 Sars-CoV-2, Bev 2 Day Tat Performed 1 .~.~Z11.59 2 This nucleic acid amplificat ion test was developed and its performance characteristics determined by [email or web address]. Nucleic acid amplification tests include RT-PCR and [...] URINALYSIS 6 HYPAE YEAST 7 _CULTURE URINE_ ^$406596 ^^901250 $$485723 ^^820773 $$151700 $$060450 $$465421 $$380391 $$631751 $$291514 $$129593 $$362390 $$133144 $$561582 $$368249 $$522816 $$764169 $$532125 $$074391 $$177805 $$043924 $$991607 $$314548 $$708196 $$567971 $$359308 $$489131 ^^201280 $$443528 $$548392 $$008122 -- Continued on next page -- Patient: POORNIMA Denney Order: [id number] Page 2 Culture: CULTURE URINE Status: Final -- Continued on next page -- Patient: POORNIMA Denney Order: [id number] Page 2 Culture: CULTURE URINE Status: Prelim -- Continued on next page -- Patient: POORNIMA Denney Order: [id number] Page 2 Culture: CULTURE URINE Status: Prelim $$[id number] $$[id number] REPORTED DATE/TIME: 05/14/2021 12:06 Culture: CULTURE URINE [...] coli Flag: A Patient: POORNIMA Denney Order: [id number] Page 3 Culture: CULTURE URINE Status: Final [...] S S . . . . . .68988-9 Gentamicin S S . . . . . .267-5 Imipenem S S . . . . . .279-0 Levofloxacin S S . . . . . .29075-7 Meropenem S S . . . . . .6652-2 Nitrofurantoin S S . . . . . .363-2 Piperacillin/Tazobactam S S . . . . . .412-7 Tetracycline S S . . . . . .496-0 Tobramycin S S . . . . . .508-2 Trimethoprim/Sulfa S S . . . . . .516-5 P1 Test performed by: [facility] #: [id number] [address] [place] [id number] [facility] [id number] Manual Control Auger Press Operator : Armando Lang MD NPI #: Automatic Engraver : 05/12/[email or web address] REF 05/13/[id number].SENT REF 05/14/21.1406.XMT.SENT REF 8 This nucleic acid amplificat ion test was developed and its performance characteristics determined by [email or web address]. Nucleic acid amplification tests include RT-PCR and [...] Little GFR Left ESRD GFR <15 on MATERIAL LISTER 11 This nucleic acid amplificat ion test was developed and its performance characteristics determined by [email or web address]. Nucleic acid amplification tests include RT-PCR and [...] developed and its performance characteristics determined by [email or web address]. Nucleic acid amplification tests include RT-PCR and [...] developed and its performance characteristics determined by [email or web address]. Nucleic acid amplification tests include RT-PCR and [...] assay. Procedures Date Code Description Status 05/07/2021 83768 Office/Outpatient Established Lo w MDM 20-29 Min Completed 05/07/2021 15382 Office/Outpatient New Low MDM 30 -44 Minutes Completed 05/07/2021 48301 Admin Patient Focused Health Ris k Assessment Instrument Completed 05/07/2021 37003 Brief Emotional/Beha v Assessment W/ Scoring Doc Per Standard Inst Completed 04/30/2021 29670 Office/Outpatient Established Mo d MDM 30-39 Min Completed 04/18/2021 35800 Office Visit New Level 1 [facility] ed 04/13/2021 74591 Office/Outpatient Established Lo w MDM 20-29 Min Completed 04/13/2021 01938 Pulse Oximetry Single Determinat ion Completed 02/04/2021 36059 Office/Outpatient Established Lo w MDM 20-29 Min Completed 01/27/2021 18076 Office/Outpatient Established Mo d MDM 30-39 Min Completed 12/24/2020 72859 Office/Outpatient Established Lo w MDM 20-29 Min Completed 12/21/2020 58173 Office/Outpatient Established Lo w MDM 20-29 Min Completed 12/13/2020 84243 Office/Outpatient Established Lo w MDM 20-29 Min Completed 11/30/2020 78209 Office Visit New Level 1 [facility] ed Medical Devices Description No Information [...] F12.20 Cannabis dependence, uncomplicat ed Amara Velazquez [facility], CASAC 04/11/2021 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, in remission Alec Velazquez LM, CASAC 03/12/2021 F31.60 Bipolar disorder, current episod e mixed, unspecified Amara Velazquez LM, CASAC 03/12/2021 F12.20 Cannabis dependence, uncomplicat ed Amara Velazquez [facility], CASAC 03/12/2021 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, in remission Alec Velazquez LM, CASAC 02/05/2021 F31.60 Bipolar disorder, current episod e mixed, unspecified Amara Velazquez LM, CASAC 02/05/2021 F12.20 Cannabis dependence, uncomplicat ed Amara Velaqzuez LM, CASAC 02/05/2021 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, in [...] M62.830 Muscle spasm of back Yoni Medel, ARCHIVES TECHNICIAN 12/21/2020 G43.009 Migraine without aur a, not intractable, without status migrainosus Juliana Hogan PA-C 12/13/2020 R05 Cough Chiki Yepez , ARCHIVES TECHNICIAN 12/04/2020 F31.60 Bipolar disorder, current episod [...] Greco, CASAC Plan of Treatment Future Appointment(s):* 08/14/2021 1:00 pm - Narinder Lima MD at Family Practice * 05/29/2021 10:00 am - Alma Simons NP at [facility] * 06/10/2021 2:40 pm - Ry Rodriguez PA-C at Behavioral Health * 06/10/2021 2:00 pm - EM Muñiz, CASAC at Behavior[facility] 04/18/2021 - Antwan Ragland PA-C* J06.9 Acute upper respiratory infection, unspecified Functional Status Description No Information Available Mental Status Description No Information Available Referrals Description No Information Available
--- OUTSIDE RECORDS SUMMARY | 2021-06-21 20:59 | CCD | Continuity of Care Document ---
Author Author Houston LIND Organization Unknown Address [address] [place] [address] Phone [phone] Care Team Providers Care Yarn Tester Name Role Phone Narinder Lima M.D. AUTM [phone] [facility] [address] [facility] AUTM [facility] AUTM [facility] AUTM [phone] Problems Active Problems Provider Date Migraine with [...] SIG Qnty Indications Ordering Provide r Date Emgality 120mg/ml Solution Auto-In ject give one [...] Garret Donohue 08/09/2020 Vitamin D (Ergocalciferol) 1.25mg (84883 Ut) Capsules 1 cap by mouth every [...] 12/01/19 21 Ketorolac (Toradol) Inj 30MG/ML Injection Narnider Lima MD 11/18/19 17 Immunizations CPT Code Status Date Vaccine Lot # [id number] Given 05/13/2020 Influenza (>= 6 Months) P.F. Vaccine [id number] Given 06/14/2018 Influenza (>= 6 Months) P.F. [...] Choice T Pallidum AB QL Serum <pending> Affirm Vaginitis Panel 05/07/2021 Patients Choice Z#Other Observations <pending> Covid-19 04/13/2021 [facility] Sars-CoV-2, Bev Not Detected Not Detected 1 Sars-CoV-2, Bev 2 Day Tat Performed Total Iron Binding Capacit 03/26/2021 [facility] Iron (Fe) 78 g/dL Normal 50-170 Total Iron Binding Capacity 256 g/dL Normal 250-450 Percent Saturation 30.5 % Normal 13.2-45.0 Laboratory test finding 03/26/2021 [facility] Ferritin 73 NG/ML Normal 8-252 2 Comprehensive Metabolic Profil 03/26/2021 [facility] Glucose, Fasting 109 mg/dL High 70-100 Blood Urea Nitrogen 14 mg/dL Normal 7-18 Creatinine For GFR 0.66 mg/dL Normal 0.55-1.30 Glomerular Filtration Rate > 60.0 Normal >60 3 Sodium Level 141 mEq/L Normal 136-145 Potassium [...] 1.2 Normal 1.2-2.2 CBC With Differential 03/26/2021 [facility] White Blood Count 9.9 [...] 36.0-66.0 Lymph % 27.1 % Normal 24.0-44.0 Henry % 6.4 % Normal 2.0-8.0 Eos % 1.5 % Normal 0.0-3.0 Baso % 0.3 % Normal 0.0-1.0 Immature Granulocyte % 0.4 % Normal 0-3.0 Nucleated Red Blood Cell % 0.0 % Normal 0-0 Neutrophils # 6.4 10 Normal 1.5-8.5 Lymph # 2.7 10 Normal 1.5-5.0 Henry # 0.6 10 Normal 0.0-0.8 Eos # 0.2 10 Normal 0.0-0.5 Baso # 0.0 10 Normal 0.0-0.2 Covid-19 02/07/2021 [facility] Sars-CoV-2, Bev Not Detected Not Detected 4 Sars-CoV-2, Bev 2 Day Tat Performed Laboratory test finding 02/04/2021 [facility] Ferritin Fallon 63.5 ng/mL 3.0 - 105 5 Iron Binding Capacity 02/04/2021 [facility] Iron 58 g/dL 42 - 135 Uibc 173 g/dL 112 - 347 Tibc 231 g/dL Low 250 - 450 Iron Sat 25 % CBC W/Automated Diff 02/04/2021 [facility] CBC W/Automated Diff (SEE NOTE) 6 WBC 10.1 10^3/uL 4.2 - 11.0 RBC [...] 80.0 Lymph 34.6 % 25.0 - 40.0 Henry 7.5 % 3.0 - 8.0 Eos 2.8 % 0.0 - 7.0 Baso 0.4 % 0.0 - 2.5 %Ig 0.4 % High 0.0 - 0.0 %NRBC 0.0 % 0.0 - 0.0 #Neut 5.48 10^3/uL 2.00 - 6.90 #Lymph 3.49 10^3/uL High 0.60 - 3.40 #Henry 0.76 10^3/uL 0.00 - 0.90 #Eos 0.28 10^3/uL 0.00 - 0.70 #Baso 0.04 10^3/uL 0.00 - 0.20 #Ig 0.04 10^3/uL 0.00 - 0.10 #NRBC 0.00 10^3/uL 0.00 - 0.00 Manual Diff NOT INDICATED RBC Morph NOT INDICATED Laboratory test finding 02/04/2021 [facility] Vitamin B12 Serum 204 pg/mL Low 232 - 1245 Vitamin D (25-Hydroxy) 19 NG/ML 7 Comprehensive Metabolic Panel 02/04/2021 [facility] ospital Comprehensive Metabo (SEE NOTE) 8 Sodium 138 mEq/L 134 - 153 Potassium [...] >60 mL/min Afr Amer GFR >60 mL/min 9 Laboratory test finding 01/27/2021 [facility] T4 - Free 1.27 ng/dL 0.93 - 1.70 TSH Highly Sensitive 0.34 uIU/mL Low 0.47 - 5.01 Inhouse-Influenza A&B Rna Prob 12/13/2020 In Office Influenza Virus A QL PCR negative Negative Influenza Virus B QL PCR negative Negative Laboratory test finding 12/13/2020 [facility] Coronavirus Covid-19 Not Detected Not Detected 10 Covid-19 11/21/2020 [facility] Sars-CoV-2, Bev Not Detected Not Detected 11 Sars-CoV-2, Bev 2 Day Tat Performed 1 This nucleic acid amplificat ion test was developed and its performance characteristics determined by [employer]. Nucleic acid amplification tests include RT-PCR [...] negative (not detected) result in this assay. 2 note:<nlbl:[facility]_chang ed> 3 Units are mL/min/1.73 m2 Chronic Kidney Disease Staging per NKF: Stage I & II GFR >=60 Normal to Mildly Decreased Stage III GFR 30-59 Moderately Decreased Stage IV GFR 15-29 Severely Decreased Stage V GFR <15 Very Little GFR Left ESRD GFR <15 on METAL TEMPLATE MAKER 4 This nucleic acid amplificat ion test was developed and its performance characteristics determined by [employer]. Nucleic acid amplification tests include RT-PCR [...] (not detected) result in this assay. 5 Is patient fasting? N 6 COMPLETE BLOOD COUNT 7 VITAMIN-D(25HYDROXY) Deficiency: <=20 ng/ml Insufficiency: 21-29 ng/ml Preferred level: => 30 ng/ml 8 COMPREHENSIVE METABOLIC PANE L 9 Male GFR Interprentation 20-49 yrs >60 mL/min Normal 50-59 yrs >56 mL/min Normal 60-69 yrs >49 mL/min Normal 70-79yrs >42 mL/min Normal 80 and above >35 mL/min Normal Female GFR Interpretation 20-39 yrs >60 mL/min Normal 40-49 yrs >58 mL/min Normal 50-59 yrs >51 mL/min Normal 60-69 yrs >45 mL/min Normal 70-79 yrs >39 mL/min Normal 80 and above >32 mL/min Normal 10 This nucleic acid amplificat ion test was developed and its performance characteristics determined by [employer]. Nucleic acid amplification tests include RT-PCR [...] negative (not detected) result in this assay. 11 This nucleic acid amplificat ion test was developed and its performance characteristics determined by [employer]. Nucleic acid amplification tests include RT-PCR [...] assay. Procedures Date Code Description Status 05/07/2021 74185 Office/Outpatient Established Lo w MDM 20-29 Min Completed 05/07/2021 62132 Office/Outpatient New Low MDM 30 -44 Minutes Completed 05/07/2021 22587 Admin Patient Focused Health Ris k Assessment Instrument Completed 05/07/2021 31534 Brief Emotional/Beha v Assessment W/ Scoring Doc Per Standard Inst Completed 04/30/2021 02409 Office/Outpatient Established Mo d MDM 30-39 Min Completed 04/18/2021 69075 Office Visit New Level 1 Complet ed 04/13/2021 56284 Office/Outpatient Established Lo w MDM 20-29 Min Completed 04/13/2021 60986 Pulse Oximetry Single Determinat ion Completed 02/04/2021 15014 Office/Outpatient Established Lo w MDM 20-29 Min Completed 01/27/2021 49313 Office/Outpatient Established Mo d MDM 30-39 Min Completed 12/24/2020 10184 Office/Outpatient Established Lo w MDM 20-29 Min Completed 12/21/2020 05824 Office/Outpatient Established Lo w MDM 20-29 Min Completed 12/13/2020 99604 Office/Outpatient Established Lo w MDM 20-29 Min Completed 11/30/2020 29494 Office Visit New Level 1 Complet ed [...] Acute upper respiratory infectio n, unspecified Antwan Ellyn, PA-C 04/13/2021 A09 Infectious gastroenteritis and c olitis, unspecified Emmie Baker PA-C 04/11/2021 F31.60 Bipolar disorder, current episod e mixed, unspecified Amara Velazquez [place], [place] 04/11/2021 F12.20 Cannabis dependence, uncomplicat ed Amara Velazquez [place] 04/11/2021 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, in remission Alec Velazquez [place], [place] 03/12/2021 F31.60 Bipolar disorder, current episod e mixed, unspecified Amara Velazquez [place], [place] 03/12/2021 F12.20 Cannabis dependence, uncomplicat ed Amara Velazquez [place], [place] 03/12/2021 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, in remission Alec Velazquez LM, CAS[facility] 02/05/2021 F31.60 Bipolar disorder, current episod e mixed, unspecified Amara Velazquez [place], [place] 02/05/2021 F12.20 Cannabis dependence, uncomplicat ed Amara Velazquez [place], [place] 02/05/2021 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, in remission [...] 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, in remission Alec urena EM Velazquez, CASAC 12/24/2020 M62.830 Muscle spasm of back Yoni Medel, GAS TREATER 12/21/2020 G43.009 Migraine without aur a, not intractable, without status migrainosus Juliana Hogan PA-C 12/13/2020 R05 Cough Chiki Baldwin , GAS TREATER 12/04/2020 F31.60 Bipolar disorder, current episod e mixed, unspecified Amara Velazquez LM, CASAC 12/04/2020 F12.20 Cannabis dependence, uncomplicat ed Amara Velazquez LM, [facility] 12/04/2020 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, in remission EM Greco, CASAC 11/30/2020 G43.009 Migraine without aur a, not intractable, without status migrainosus Jose F Negro PA-C 11/13/2020 F31.60 Bipolar disorder, current episod e mixed, unspecified Amara Velazquez LM, CASAC 11/13/2020 F12.20 Cannabis dependence, uncomplicat ed Amara BRIGHT Velazquez, CASAC 11/13/2020 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, in remission Alec ayanna Velazquez LM, CASAC Plan of Treatment Future Appointment(s):* 08/14/2021 1:00 pm - Narinder Lima MD at [facility] * 05/29/2021 10:00 am - Alma Simons NP at [facility] * 06/10/2021 2:40 pm - Ry Rodriguez PA-C at [facility] * 06/10/2021 2:00 pm - EM Muñiz, CASAC at [facility] 05/07/2021 - Narinder Lima MD* G43.009 Migraine without aura, not intractable, without status migrainosus* New Medication:* Emgality 120 mg/ml - give one dose sc monthly. * New Labs:* Comprehensive Metabolic Panel, Ordered: 05/07/21 * E55.9 Vitamin D deficiency, unspecified* New Labs:* Vitamin D (25-Hydroxy), Ordered: 05/07/21 * D51.9 Vitamin B12 deficiency anemia, unspecified* New Labs:* Vitamin B12 Serum, Ordered: 05/07/21 * CBC W/Automated Diff, Ordered: 05/07/21 * Iron Binding Capacity, Ordered: 05/07/21 * Iron, Ordered: 05/07/21 * Ferritin Fallon, Ordered: 05/07/21 Functional Status Description No Information Available Mental Status Description No Information Available Referrals Description No Information Available
--- OUTSIDE RECORDS SUMMARY | 2021-06-21 20:59 | CCD | Continuity of Care Document ---
Author Author Houston LIMA M.D. Organization Unknown Address [address] [place] [id number] Phone [phone] Care Team Providers Care Machine Marker Name Role Phone Narinder Lima M.D. AUTM [phone] [facility] [address] [facility] AUTM [facility] AUTM [facility] AUTM Problems Active Problems [...] Garret Donohue 08/09/2020 Vitamin D (Ergocalciferol) 1.25mg (35127 Ut) Capsules 1 cap by mouth every [...] CPT Code Status Date Vaccine Lot # [id number] Given 05/13/2020 Influenza (>= 6 Months) P.F. Vaccine [id number] Given 06/14/2018 Influenza (>= 6 Months) P.F. [...] Choice Z#Other Observations <pending> Covid-19 04/13/2021 [facility] Sars-CoV-2, Bev Not Detected Not Detected 1 Sars-CoV-2, Bev 2 Day Tat Performed Total Iron Binding Capacit 03/26/2021 [facility] Iron (Fe) 78 g/dL Normal 50-170 Total Iron Binding Capacity 256 g/dL Normal 250-450 Percent Saturation 30.5 % Normal 13.2-45.0 Laboratory test finding 03/26/2021 [facility] Ferritin 73 NG/ML Normal 8-252 2 Comprehensive Metabolic Profil 03/26/2021 [facility] Glucose, Fasting 109 mg/dL High 70-100 [...] 1.2 Normal 1.2-2.2 CBC With Differential 03/26/2021 [facility] White Blood Count 9.9 10 Normal [...] 36.0-66.0 Lymph % 27.1 % Normal 24.0-44.0 [place] % 6.4 % Normal 2.0-8.0 Eos % 1.5 % Normal 0.0-3.0 Baso % 0.3 % Normal 0.0-1.0 Immature Granulocyte % 0.4 % Normal 0-3.0 Nucleated Red Blood Cell % 0.0 % Normal 0-0 Neutrophils # 6.4 10 Normal 1.5-8.5 Lymph # 2.7 10 Normal 1.5-5.0 [place] # 0.6 10 Normal 0.0-0.8 Eos # 0.2 10 Normal 0.0-0.5 Baso # 0.0 10 Normal 0.0-0.2 Covid-19 02/07/2021 [facility] Sars-CoV-2, Bev Not Detected Not Detected 4 Sars-CoV-2, Bev 2 Day Tat Performed Laboratory test finding 02/04/2021 [facility] l Ferritin Fallon 63.5 ng/mL 3.0 - 105 5 Iron Binding Capacity 02/04/2021 [facility] Iron 58 g/dL 42 - 135 Uibc 173 g/dL 112 - 347 Tibc 231 g/dL Low 250 - 450 Iron Sat 25 % CBC W/Automated Diff 02/04/2021 [facility] CBC W/Automated Diff (SEE NOTE) 6 WBC [...] 80.0 Lymph 34.6 % 25.0 - 40.0 [place] 7.5 % 3.0 - 8.0 Eos 2.8 % 0.0 - 7.0 Baso 0.4 % 0.0 - 2.5 %Ig 0.4 % High 0.0 - 0.0 %NRBC 0.0 % 0.0 - 0.0 #Neut 5.48 10^3/uL 2.00 - 6.90 #Lymph 3.49 10^3/uL High 0.60 - 3.40 #Boone 0.76 10^3/uL 0.00 - 0.90 #Eos 0.28 10^3/uL 0.00 - 0.70 #Baso 0.04 10^3/uL 0.00 - 0.20 #Ig 0.04 10^3/uL 0.00 - 0.10 #NRBC 0.00 10^3/uL 0.00 - 0.00 Manual Diff NOT INDICATED RBC Morph NOT INDICATED Laboratory test finding 02/04/2021 [facility] l Vitamin B12 Serum 204 pg/mL Low 232 - 1245 Vitamin D (25-Hydroxy) 19 NG/ML 7 Comprehensive Metabolic Panel 02/04/2021 [facility] ospital Comprehensive Metabo (SEE NOTE) 8 Sodium [...] >60 mL/min 9 Laboratory test finding 01/27/2021 [facility] T4 - Free 1.27 ng/dL 0.93 - 1.70 TSH Highly Sensitive 0.34 uIU/mL Low 0.47 - 5.01 Inhouse-Influenza A&B Rna Prob 12/13/2020 In Office Influenza Virus A QL PCR negative Negative Influenza Virus B QL PCR negative Negative Laboratory test finding 12/13/2020 [facility] Coronavirus Covid-19 Not Detected Not Detected 10 Covid-19 11/21/2020 [facility] Sars-CoV-2, Bev Not Detected Not Detected 11 Sars-CoV-2, Bev 2 Day Tat Performed 1 This nucleic acid amplificat ion test was developed and its performance characteristics determined by [employer]. Nucleic acid amplification tests include RT-PCR and [...] (not detected) result in this assay. 2 note:<nlbl:[facility]_chang ed> 3 Units are mL/min/1.73 m2 Chronic Kidney Disease Staging per NKF: Stage I & II GFR >=60 Normal to Mildly Decreased Stage III GFR 30-59 Moderately Decreased Stage IV GFR 15-29 Severely Decreased Stage V GFR <15 Very Little GFR Left ESRD GFR <15 on MUSEUM EXHIBIT TECHNICIAN 4 This nucleic acid amplificat ion test was developed and its performance characteristics determined by [employer]. Nucleic acid amplification tests include RT-PCR and [...] developed and its performance characteristics determined by [employer]. Nucleic acid amplification tests include RT-PCR and [...] developed and its performance characteristics determined by [employer]. Nucleic acid amplification tests include RT-PCR and [...] assay. Procedures Date Code Description Status 05/07/2021 15239 Office/Outpatient Established Lo w MDM 20-29 Min Completed 05/07/2021 49899 Office/Outpatient New Low MDM 30 -44 Minutes Completed 05/07/2021 30540 Admin Patient Focused Health Ris k Assessment Instrument Completed 05/07/2021 26298 Brief Emotional/Beha v Assessment W/ Scoring Doc Per Standard Inst Completed 04/30/2021 29755 Office/Outpatient Established Mo d MDM 30-39 Min Completed 04/18/2021 02013 Office Visit New Level 1 Complet ed 04/13/2021 55971 Office/Outpatient Established Lo w MDM 20-29 Min Completed 04/13/2021 15715 Pulse Oximetry Single Determinat ion Completed 02/04/2021 43672 Office/Outpatient Established Lo w MDM 20-29 Min Completed 01/27/2021 92201 Office/Outpatient Established Mo d MDM 30-39 Min Completed 12/24/2020 63485 Office/Outpatient Established Lo w MDM 20-29 Min Completed 12/21/2020 34487 Office/Outpatient Established Lo w MDM 20-29 Min Completed 12/13/2020 35386 Office/Outpatient Established Lo w MDM 20-29 Min Completed 11/30/2020 92457 Office Visit New Level 1 Complet ed [...] current episod e mixed, unspecified Amara Velazquez [facility], [facility] 04/11/2021 F12.20 Cannabis dependence, uncomplicat ed Amara Velazquez [facility], [facility] 04/11/2021 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, in remission Alec Velazquez [facility], [facility] 03/12/2021 F31.60 Bipolar disorder, current episod e mixed, unspecified Amara Velazquez [facility], [facility] 03/12/2021 F12.20 Cannabis dependence, uncomplicat ed Amara Velazquez [facility], [facility] 03/12/2021 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, in remission Alec Velazquez LM, [facility] 02/05/2021 F31.60 Bipolar disorder, current episod e mixed, unspecified Amara Velazquez [facility], [facility] 02/05/2021 F12.20 Cannabis dependence, uncomplicat ed Amara Velazquez [facility], [facility] 02/05/2021 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, in remission [...] M62.830 Muscle spasm of back Yoni Medel, RN SURGICAL PCU 12/21/2020 G43.009 Migraine without aur a, not intractable, without status migrainosus Juliana Hogan PA-C 12/13/2020 R05 Cough Chiki Baldwin , RN SURGICAL PCU 12/04/2020 F31.60 Bipolar disorder, current episod e [...] 1:00 pm - Narinder Lima MD at [facility] * 05/29/2021 10:00 am - Alma Simons NP at [facility] * 06/10/2021 2:40 pm - Ry Rodriguez PA-C at [facility] * 06/10/2021 2:00 pm - EM Muñiz, CASAC at [facility] 05/07/2021 - Narinder Lima MD* G43.009 [...]
--- OUTSIDE RECORDS SUMMARY | 2021-06-21 21:01 | CCD ---
Author Author [facility] Organization [facility] Address Unknown Phone Unavailable Support Name Relationship Address Phone TONA JOLLEY Next Of Kin [address] [place] [address] VALENTINO NICOLAS Next Of Kin [address] [place] [address] Sonia Boothe DDS Next Of Kin [address] [place], [place] [phone] Arelis Mcwilliams Next Of Kin Unknown Unavailable MCDEVANSMI Next Of Kin [address] [place] [address] MCDPUL Next Of Kin [address] [facility] [address] [place] [address] UNK Next Of Kin Unknown Unavailable MCDONALDS Next Of Kin [address] [place] [address] [place] [id number] ANTOINETTE NOGUERA Next Of Kin [address] [place] [address] Sonia Boothe DDS Next Of Kin [address] [place] [address] BRITTANIE KOENIG Next Of Kin [address] [facility] [address] [place] [address] MAGEN'Martin Next Of Kin [facility] [address] [place] [address] KATI NOGUERA Next Of Kin [address] [place] [address] [employer] Next [place] [address] [facility] [place] [address] [place] Next Of Kin [address] [facility] [address] ST Next Of Kin Unknown Unavailable Gray SAAVEDRA Next Of Kin [address] [place] [address] UNEMPLOYED Next Of Kin [address] [place] [address] UE Next Of Kin Unknown Unavailable Gray MCWILLIAMS Next Of Kin [address] [place] [address] LUCYCELEIE Next Of Kin [address] [place] [address] Arelis Mcwilliams ECON [address] [place] [address] Unavailable Care Team Providers Care Muffler Installer Name Role Phone TOÑA, F GREGG DO Unavailable Unavailable TOÑA, F GREGG DO Unavailable Unavailable TOÑA, F GREGG DO Unavailable Unavailable TOÑA, F GREGG DO Unavailable Unavailable TOÑA, F GREGG DO Unavailable Unavailable TOÑA, F GREGG DO Unavailable Unavailable TOÑA, F GREGG DO Unavailable Unavailable TOÑA, F GREGG DO Unavailable Unavailable TOÑA, F GREGG DO Unavailable Unavailable TOÑA, F GREGG DO Unavailable Unavailable TOÑA, F GREGG DO Unavailable Unavailable TOÑA, F GREGG DO Unavailable Unavailable TOÑA, F GREGG DO Unavailable Unavailable TOÑA, F GREGG DO Unavailable Unavailable TOÑA, F GREGG DO Unavailable Unavailable TOÑA, F GREGG DO Unavailable Unavailable TOÑA, F GREGG DO Unavailable Unavailable TOÑA, F GREGG DO Unavailable Unavailable TOÑA, F GREGG DO Unavailable Unavailable TOÑA, F GREGG DO Unavailable Unavailable TOÑA, F GREGG DO Unavailable Unavailable TOÑA, F GREGG DO Unavailable Unavailable TOÑA, F GREGG DO Unavailable Unavailable TOÑA, F GREGG DO Unavailable Unavailable TOÑA, F GREGG DO Unavailable Unavailable TOÑA, F GREGG DO Unavailable Unavailable TOÑA, F GREGG DO Unavailable Unavailable TOÑA, F GREGG DO Unavailable Unavailable TOÑA, F GREGG DO Unavailable Unavailable TOÑA, F GREGG DO Unavailable Unavailable TOÑA, F GREGG DO Unavailable Unavailable TOÑA, F GREGG DO Unavailable Unavailable TOÑA, F GREGG DO Unavailable Unavailable TOÑA, F GREGG DO Unavailable Unavailable TAYLOR, DOLLY PA Unavailable Unavailable TAYLOR, DOLLY PA Unavailable Unavailable TAYLOR, DOLLY PA Unavailable Unavailable TAYLOR, DOLLY PA Unavailable Unavailable TAYLOR, DOLLY PA Unavailable Unavailable TAYLOR, DOLLY PA Unavailable Unavailable TAYLOR, DOLLY PA Unavailable Unavailable TAYLOR, DOLLY PA Unavailable Unavailable TAYLOR, DOLLY PA Unavailable Unavailable TAYLOR, DOLLY PA Unavailable Unavailable TAYLOR, DOLLY PA Unavailable Unavailable TAYLOR, DOLLY PA Unavailable Unavailable TAYLOR, DOLLY PA Unavailable Unavailable TAYLOR, DOLLY PA Unavailable Unavailable TAYLOR, DOLLY PA Unavailable Unavailable TAYLOR, DOLLY PA Unavailable Unavailable TAYLOR, DOLLY PA Unavailable Unavailable Hogan, M Juliana PA-C Unavailable Unavailable Hogan, M Juliana PA-C Unavailable Unavailable Hogan, M Juliana PA-C Unavailable Unavailable Hogan, M Juliana PA-C Unavailable Unavailable Hogan, M Juliana PA-C Unavailable Unavailable Hogan, M Juliana PA-C Unavailable Unavailable Hogan, M Juliana PA-C Unavailable Unavailable Hogan, M Juliana PA-C Unavailable Unavailable Hogan, M Juliana PA-C Unavailable Unavailable Hogan, M Juliana PA-C Unavailable Unavailable Hogan, M Juliana PA-C Unavailable Unavailable Hogan, M Juliana PA-C Unavailable Unavailable Hogan, M Juliana PA-C Unavailable Unavailable Hogan, M Juliana PA-C Unavailable Unavailable Hogan, M Juliana PA-C Unavailable Unavailable Hogan, M Juliana PA-C Unavailable Unavailable Hogan, M Juliana PA-C Unavailable Unavailable Hogan, M Juliana PA-C Unavailable Unavailable Hogan, M Juliana PA-C Unavailable Unavailable Hogan, M Juliana PA-C Unavailable Unavailable Hogan, M Juliana PA-C Unavailable Unavailable Hogan, M Juliana PA-C Unavailable Unavailable Hogan, M Juliana PA-C Unavailable Unavailable Hogan, M Juliana PA-C Unavailable Unavailable Hogan, M Juliana PA-C Unavailable Unavailable Hogan, M Juliana PA-C Unavailable Unavailable Hogan, M Juliana PA-C Unavailable Unavailable Hogan, M Juliana PA-C Unavailable Unavailable Hogan, M Juliana PA-C Unavailable Unavailable Hogan, M Juliana PA-C Unavailable Unavailable Hogan, M Juliana PA-C Unavailable Unavailable Hogan, M Juliana PA-C Unavailable Unavailable Hogan, M Juliana PA-C Unavailable Unavailable Hogan, M Juliana PA-C Unavailable Unavailable Hogan, M Juliana PA-C Unavailable Unavailable Hogan, M Juliana PA-C Unavailable Unavailable Hogan, M Juliana PA-C Unavailable Unavailable Hogan, M Juliana PA-C Unavailable Unavailable JESS, B REGGIE BEAN SPROUT LABORER Unavailable Unavailable JESS, B REGGIE BEAN SPROUT LABORER Unavailable Unavailable JESS, B REGGIE BEAN SPROUT LABORER Unavailable Unavailable JESS, B REGGIE BEAN SPROUT LABORER Unavailable Unavailable JESS, B REGGIE BEAN SPROUT LABORER Unavailable Unavailable JESS, B REGGIE BEAN SPROUT LABORER Unavailable Unavailable JESS, B REGGIE BEAN SPROUT LABORER Unavailable Unavailable JESS, B REGGIE BEAN SPROUT LABORER Unavailable Unavailable JESS, B REGGIE BEAN SPROUT LABORER Unavailable Unavailable JESS, B REGGIE BEAN SPROUT LABORER Unavailable Unavailable JESS, B REGGIE BEAN SPROUT LABORER Unavailable Unavailable JESS, B REGGIE BEAN SPROUT LABORER Unavailable Unavailable JESS, B REGGIE BEAN SPROUT LABORER Unavailable Unavailable JESS, B REGGIE BEAN SPROUT LABORER Unavailable Unavailable JESS, B REGGIE BEAN SPROUT LABORER Unavailable Unavailable JESS, B REGGIE BEAN SPROUT LABORER Unavailable Unavailable JESS, B REGGIE BEAN SPROUT LABORER Unavailable Unavailable JESS, B REGGIE BEAN SPROUT LABORER Unavailable Unavailable JESS, B REGGIE BEAN SPROUT LABORER Unavailable Unavailable JESS, B REGGIE BEAN SPROUT LABORER Unavailable Unavailable JESS, B REGGIE BEAN SPROUT LABORER Unavailable Unavailable JESS, B REGGIE BEAN SPROUT LABORER Unavailable Unavailable JESS, B REGGIE BEAN SPROUT LABORER Unavailable Unavailable JESS, B REGGIE BEAN SPROUT LABORER Unavailable Unavailable JESS, B REGGIE BEAN SPROUT LABORER Unavailable Unavailable JESS, B REGGIE BEAN SPROUT LABORER Unavailable Unavailable JESS, B REGGIE BEAN SPROUT LABORER Unavailable Unavailable JESS, B REGGIE BEAN SPROUT LABORER Unavailable Unavailable JESS, B REGGIE BEAN SPROUT LABORER Unavailable Unavailable JESS, B REGGIE BEAN SPROUT LABORER Unavailable Unavailable JESS, B REGGIE BEAN SPROUT LABORER Unavailable Unavailable JESS, B REGGIE BEAN SPROUT LABORER Unavailable Unavailable JESS, B REGGIE BEAN SPROUT LABORER Unavailable Unavailable JESS, B REGGIE BEAN SPROUT LABORER Unavailable Unavailable JESS, B REGGIE BEAN SPROUT LABORER Unavailable Unavailable JESS, B REGGIE BEAN SPROUT LABORER Unavailable Unavailable JESS, B REGGIE BEAN SPROUT LABORER Unavailable Unavailable JSES, B REGGIE BEAN SPROUT LABORER Unavailable Unavailable JESS, B REGGIE BEAN SPROUT LABORER Unavailable Unavailable JESS, B REGGIE BEAN SPROUT LABORER Unavailable Unavailable JESS, B REGGIE BEAN SPROUT LABORER Unavailable Unavailable JESS, B REGGIE BEAN SPROUT LABORER Unavailable Unavailable JESS, B REGGIE BEAN SPROUT LABORER Unavailable Unavailable JESS, B REGGIE BEAN SPROUT LABORER Unavailable Unavailable JESS, B REGGIE BEAN SPROUT LABORER Unavailable Unavailable JESS, B REGGIE BEAN SPROUT LABORER Unavailable Unavailable JESS, B REGGIE BEAN SPROUT LABORER Unavailable Unavailable JESS, B REGGIE BEAN SPROUT LABORER Unavailable Unavailable JESS, B REGGIE BEAN SPROUT LABORER Unavailable Unavailable JESS, B REGGIE BEAN SPROUT LABORER Unavailable Unavailable JESS, B REGGIE BEAN SPROUT LABORER Unavailable Unavailable JESS, B REGGIE BEAN SPROUT LABORER Unavailable Unavailable JESS, B REGGIE BEAN SPROUT LABORER Unavailable Unavailable JESS, B REGGIE BEAN SPROUT LABORER Unavailable Unavailable JESS, B REGGIE BEAN SPROUT LABORER Unavailable Unavailable JESS, B REGGIE BEAN SPROUT LABORER Unavailable Unavailable JESS, B REGGIE BEAN SPROUT LABORER Unavailable Unavailable JESS, B REGGIE BEAN SPROUT LABORER Unavailable Unavailable JESS, B REGGIE BEAN SPROUT LABORER Unavailable Unavailable JESS, B REGGIE BEAN SPROUT LABORER Unavailable Unavailable JESS, B REGGIE BEAN SPROUT LABORER Unavailable Unavailable JESS, B REGGIE BEAN SPROUT LABORER Unavailable Unavailable QUINN, J AVINASH PA Unavailable Unavailable QUINN, J AVINASH PA Unavailable Unavailable QUINN, J AVINASH PA Unavailable Unavailable QUINN, J AVINASH PA Unavailable Unavailable QUINN, J AVINASH PA Unavailable Unavailable QUINN, J AVINASH PA Unavailable Unavailable QUINN, J AVINASH PA Unavailable Unavailable QUINN, J AVINASH PA Unavailable Unavailable QUINN, J AVINASH PA Unavailable Unavailable QUINN, J AVINASH PA Unavailable Unavailable QUINN, J AVINASH PA Unavailable Unavailable QUINN, J AVINASH PA Unavailable Unavailable QUINN, J AVINASH PA Unavailable Unavailable QUINN, J AVINASH PA Unavailable Unavailable QUINN, J AVINASH PA Unavailable Unavailable QUINN, J AVINASH PA Unavailable Unavailable QUINN, J AVINASH PA Unavailable Unavailable QUINN, J AVINASH PA Unavailable Unavailable QUINN, J AVINASH PA Unavailable Unavailable QUINN, J AVINASH PA Unavailable Unavailable QUINN, J AVINASH PA Unavailable Unavailable QUINN, J AVINASH PA Unavailable Unavailable QUINN, J AVINASH PA Unavailable Unavailable QUINN, J AVINASH PA Unavailable Unavailable QUINN, J AVINASH PA Unavailable Unavailable QUINN, J AVINASH PA Unavailable Unavailable QUINN, J AVINASH PA Unavailable Unavailable QUINN, J AVINASH PA Unavailable Unavailable QUINN, J AVINASH PA Unavailable Unavailable QUINN, J AVINASH PA Unavailable Unavailable QUINN, J AVINASH PA Unavailable Unavailable QUINN, J AVINASH PA Unavailable Unavailable QUINN, J AVINASH PA Unavailable Unavailable QUINN, J AVINASH PA Unavailable Unavailable QUINN, J AVINASH PA Unavailable Unavailable QUINN, J AVINASH PA Unavailable Unavailable QUINN, J AVINASH PA Unavailable Unavailable QUINN, J AVINASH PA Unavailable Unavailable QUINN, J AVINASH PA Unavailable Unavailable QUINN, J AVINASH PA Unavailable Unavailable QUINN, J AVINASH PA Unavailable Unavailable QUINN, J AVINASH PA Unavailable Unavailable QUINN, J AVINASH PA Unavailable Unavailable QUINN, J AVINASH PA Unavailable Unavailable QUINN, J AVINASH PA Unavailable Unavailable QUINN, J AVINASH PA Unavailable Unavailable QUINN, J AVINASH PA Unavailable Unavailable QUINN, J AVINASH PA Unavailable Unavailable QUINN, J AVINASH PA Unavailable Unavailable QUINN, J AVINASH PA Unavailable Unavailable QUINN, J AVINASH PA Unavailable Unavailable QUINN, J AVINASH PA Unavailable Unavailable QUINN, J AVINASH PA Unavailable Unavailable QUINN, J AVINASH PA Unavailable Unavailable Wineman JR, R Jose F PA-C Unavailable Unavailable Wineman JR, R Jose F PA-C Unavailable Unavailable Wineman JR, R Jose F PA-C Unavailable Unavailable Wineman JR, R Jose F PA-C Unavailable Unavailable Wineman JR, R Jose F PA-C Unavailable Unavailable Wineman JR, R Jose F PA-C Unavailable Unavailable Wineman JR, R Jose F PA-C Unavailable Unavailable Wineman JR, R Jose F PA-C Unavailable Unavailable Wineman JR, R Jose F PA-C Unavailable Unavailable Wineman JR, R Jose F PA-C Unavailable Unavailable Wineman JR, R Jose F PA-C Unavailable Unavailable Wineman JR, R Jose F PA-C Unavailable Unavailable BUMBANAC, A STAR BEAN SPROUT LABORER Unavailable Unavailable BUMBANAC, A STAR BEAN SPROUT LABORER Unavailable Unavailable BUMBANAC, A STAR BEAN SPROUT LABORER Unavailable Unavailable BUMBANAC, A STAR BEAN SPROUT LABORER Unavailable Unavailable BUMBANAC, A STAR BEAN SPROUT LABORER Unavailable Unavailable BUMBANAC, A STAR BEAN SPROUT LABORER Unavailable Unavailable BUMBANAC, A STAR BEAN SPROUT LABORER Unavailable Unavailable BUMBANAC, A STAR BEAN SPROUT LABORER Unavailable Unavailable BUMBANAC, A STAR BEAN SPROUT LABORER Unavailable Unavailable BUMBANAC, A STAR BEAN SPROUT LABORER Unavailable Unavailable BUMBANAC, A STAR BEAN SPROUT LABORER Unavailable Unavailable BUMBANAC, A STAR BEAN SPROUT LABORER Unavailable Unavailable BUMBANAC, A STAR BEAN SPROUT LABORER Unavailable Unavailable BUMBANAC, A STAR BEAN SPROUT LABORER Unavailable Unavailable BUMBANAC, A STAR BEAN SPROUT LABORER Unavailable Unavailable BUMBANAC, A STAR BEAN SPROUT LABORER Unavailable Unavailable BUMBANAC, A STAR BEAN SPROUT LABORER Unavailable Unavailable BUMBANAC, A STAR BEAN SPROUT LABORER Unavailable Unavailable BUMBANAC, A STAR BEAN SPROUT LABORER Unavailable Unavailable BUMBANAC, A STAR BEAN SPROUT LABORER Unavailable Unavailable BUMBANAC, A STAR BEAN SPROUT LABORER Unavailable Unavailable BUMBANAC, A STAR BEAN SPROUT LABORER Unavailable Unavailable BUMBANAC, A STAR BEAN SPROUT LABORER Unavailable Unavailable BUMBANAC, A STAR BEAN SPROUT LABORER Unavailable Unavailable BUMBANAC, A STAR BEAN SPROUT LABORER Unavailable Unavailable BUMBANAC, A STAR BEAN SPROUT LABORER Unavailable Unavailable BUMBANAC, A STAR BEAN SPROUT LABORER Unavailable Unavailable BUMBANAC, A STAR BEAN SPROUT LABORER Unavailable Unavailable BUMBANAC, A STAR BEAN SPROUT LABORER Unavailable Unavailable BUMBANAC, A STAR BEAN SPROUT LABORER Unavailable Unavailable BUMBANAC, A STAR BEAN SPROUT LABORER Unavailable Unavailable KARENA, BRIAN DENTAL INSURANCE BILLER Unavailable Unavailable KARENA, BRIAN DENTAL INSURANCE BILLER Unavailable Unavailable Esquivel, A Shiv PA Unavailable Unavailable Esquivel, A Shiv PA Unavailable Unavailable Esquivel, A Shiv PA Unavailable Unavailable Esquivel, A Shiv PA Unavailable Unavailable Esquivel, A Shiv PA Unavailable Unavailable Esquivel, A Shiv PA Unavailable Unavailable Esquivel, A Shiv PA Unavailable Unavailable MANSFIELD, SCARLET MD Unavailable Unavailable MANSFIELD, SCARLET MD Unavailable Unavailable MANSFIELD, SCARLET MD Unavailable Unavailable MANSFIELD, SCARLET MD Unavailable Unavailable MANSFIELD, SCARLET MD Unavailable Unavailable MANSFIELD SCARLET MD Unavailable Unavailable MANSFIELD SCARLET MD Unavailable Unavailable MANSFIELD SCARLET MD Unavailable Unavailable MNASFIELD SCARLET MD Unavailable Unavailable MANSFIELD SCARLET MD Unavailable Unavailable MNASFIELD SCARLET MD Unavailable Unavailable MANSFIELD, SCARLET MD Unavailable Unavailable MANSFIELD SCARLET MD Unavailable Unavailable MANSFIELD SCARLET MD Unavailable Unavailable MANSFIELD SCARLET MD Unavailable Unavailable MANSFIELD SCARLET MD Unavailable Unavailable MANSFIELD, SCARLET MD Unavailable Unavailable MANSFIELD, SCARLET MD Unavailable Unavailable MANSFIELD, SCARLET MD Unavailable Unavailable MANSFIELD, SCARLET MD Unavailable Unavailable MANSFIELD, SCARLET MD Unavailable Unavailable MANSFIELD, SCARLET MD Unavailable Unavailable MANSFIELD SCARLET MD Unavailable Unavailable MANSFIELD SCARLET MD Unavailable Unavailable MANSFIELD, SCARLET MD Unavailable Unavailable MANSFIELD, SCARLET MD Unavailable Unavailable MANSFIELD, SCARLET MD Unavailable Unavailable MANSFIELD, SCARLET MD Unavailable Unavailable MANSFIELD SCARLET MD Unavailable Unavailable MANSFIELD, SCARLET MD Unavailable Unavailable MANSFIELD, SCARLET MD Unavailable Unavailable MANSFIELD, SCARLET MD Unavailable Unavailable MANSFIELD, SCARLET MD Unavailable Unavailable MANSFIELD, SCARLET MD Unavailable Unavailable MANSFIELD, SCARLET MD Unavailable Unavailable MANSFIELD, SCARLET MD Unavailable Unavailable MANSFIELD, SCARLET MD Unavailable Unavailable MANSFIELD, SCARLET MD Unavailable Unavailable MANSFIELD, SCARLET MD Unavailable Unavailable MANSFIELD, SCARLET MD Unavailable Unavailable MANSFIELD, SCARLET MD Unavailable Unavailable MANSFIELD, SCARLET MD Unavailable Unavailable MANSFIELD, SCARLET MD Unavailable Unavailable MANSFIELD, SCARLET MD Unavailable Unavailable MANSFIELD, SCARLET MD Unavailable Unavailable MANSFIELD, SCARLET MD Unavailable Unavailable MANSFIELD, SCARLET MD Unavailable Unavailable MANSFIELD, SCARLET MD Unavailable Unavailable MANSFIELD, SCARLET MD Unavailable Unavailable MANSFIELD, SCARLET MD Unavailable Unavailable MANSFIELD, SCARLET MD Unavailable Unavailable MANSFIELD, SCARLET MD Unavailable Unavailable MANSFIELD, SCARLET MD Unavailable Unavailable MANSFIELD, SCARLET MD Unavailable Unavailable MANSFIELD, SCARLET MD Unavailable Unavailable MANSFIELD, SCARLET MD Unavailable Unavailable MANSFIELD, SCARLET MD Unavailable Unavailable MANSFIELD, SCARLET MD Unavailable Unavailable MANSFIELD, SCARLET MD Unavailable Unavailable MANSFIELD, SCARLET MD Unavailable Unavailable MANSFIELD, SCARLET MD Unavailable Unavailable MANSFIELD, SCARLET MD Unavailable Unavailable MANSFIELD, SCARLET MD Unavailable Unavailable MANSFIELD, SCARLET MD Unavailable Unavailable MANSFIELD, SCARLET MD Unavailable Unavailable MANSFIELD, SCARLET MD Unavailable Unavailable MANSFIELD, SCARLET MD Unavailable Unavailable MANSFIELD, SCARLET MD Unavailable Unavailable MANSFIELD, SCARLET MD Unavailable Unavailable MANSFIELD, SCARLET MD Unavailable Unavailable BUMBANAC, A STAR BEAN SPROUT LABORER Unavailable Unavailable BUMBANAC, A STAR BEAN SPROUT LABORER Unavailable Unavailable BUMBANAC, A STAR BEAN SPROUT LABORER Unavailable Unavailable BUMBANAC, A STAR BEAN SPROUT LABORER Unavailable Unavailable BUMBANAC, A STAR BEAN SPROUT LABORER Unavailable Unavailable BUMBANAC, A STAR BEAN SPROUT LABORER Unavailable Unavailable BUMBANAC, A STAR BEAN SPROUT LABORER Unavailable Unavailable BUMBANAC, A STAR BEAN SPROUT LABORER Unavailable Unavailable BUMBANAC, A STAR BEAN SPROUT LABORER Unavailable Unavailable BUMBANAC, A STAR BEAN SPROUT LABORER Unavailable Unavailable BUMBANAC, A STAR BEAN SPROUT LABORER Unavailable Unavailable BUMBANAC, A STAR BEAN SPROUT LABORER Unavailable Unavailable BUMBANAC, A STAR BEAN SPROUT LABORER Unavailable Unavailable BUMBANAC, A STAR BEAN SPROUT LABORER Unavailable Unavailable BUMBANAC, A STAR BEAN SPROUT LABORER Unavailable Unavailable BUMBANAC, A STAR BEAN SPROUT LABORER Unavailable Unavailable BUMBANAC, A STAR BEAN SPROUT LABORER Unavailable Unavailable BUMBANAC, A STAR BEAN SPROUT LABORER Unavailable Unavailable BUMBANAC, A STAR BEAN SPROUT LABORER Unavailable Unavailable BUMBANAC, A STAR BEAN SPROUT LABORER Unavailable Unavailable BUMBANAC, A STAR BEAN SPROUT LABORER Unavailable Unavailable BUMBANAC, A STAR BEAN SPROUT LABORER Unavailable Unavailable BUMBANAC, A STAR BEAN SPROUT LABORER Unavailable Unavailable BUMBANAC, A STAR BEAN SPROUT LABORER Unavailable Unavailable BUMBANAC, A STAR BEAN SPROUT LABORER Unavailable Unavailable BUMBANAC, A STAR BEAN SPROUT LABORER Unavailable Unavailable BUMBANAC, A STAR BEAN SPROUT LABORER Unavailable Unavailable BUMBANAC, A STAR BEAN SPROUT LABORER Unavailable Unavailable BUMBANAC, A STAR BEAN SPROUT LABORER Unavailable Unavailable BUMBANAC, A STAR BEAN SPROUT LABORER Unavailable Unavailable BUMBANAC, A STAR BEAN SPROUT LABORER Unavailable Unavailable RICCI, KERRY MALVIN BEAN SPROUT LABORER Unavailable Unavailable RICCI, KERRY MALVIN BEAN SPROUT LABORER Unavailable Unavailable RICCI, KERRY MALVIN BEAN SPROUT LABORER Unavailable Unavailable RICCI, KERRY MALVIN BEAN SPROUT LABORER Unavailable Unavailable RICCI, KERRY MALVIN BEAN SPROUT LABORER Unavailable Unavailable RICCI, KERRY MALVIN BEAN SPROUT LABORER Unavailable Unavailable RICCI, KERRY MALVIN BEAN SPROUT LABORER Unavailable Unavailable RICCI, KERRY MALVIN BEAN SPROUT LABORER Unavailable Unavailable RICCI, KERRY MALVIN BEAN SPROUT LABORER Unavailable Unavailable RICCI, KERRY MALVIN BEAN SPROUT LABORER Unavailable Unavailable RICCI, KERRY MALVIN BEAN SPROUT LABORER Unavailable Unavailable RICCI, KERRY MALVIN BEAN SPROUT LABORER Unavailable Unavailable RICCI, KERRY MALVIN BEAN SPROUT LABORER Unavailable Unavailable RICCI, KERRY MALVIN BEAN SPROUT LABORER Unavailable Unavailable RICCI, KERRY MALVIN BEAN SPROUT LABORER Unavailable Unavailable RICCI, KERRY MALVIN BEAN SPROUT LABORER Unavailable Unavailable RICCI, KERRY MALVIN BEAN SPROUT LABORER Unavailable Unavailable RICCI, KERRY MALVIN BEAN SPROUT LABORER Unavailable Unavailable RICCI, KERRY MALVIN BEAN SPROUT LABORER Unavailable Unavailable RICCI, KERRY MALVIN BEAN SPROUT LABORER Unavailable Unavailable RICCI, KERRY MALVIN BEAN SPROUT LABORER Unavailable Unavailable RICCI, KERRY MALVIN BEAN SPROUT LABORER Unavailable Unavailable RICCI, KERRY MALVIN BEAN SPROUT LABORER Unavailable Unavailable TURRIN, PARAMJIT Unavailable Unavailable TURRIN, PARAMJIT Unavailable Unavailable TURRIN, PARAMJIT Unavailable Unavailable TURRIN, PARAMJIT Unavailable Unavailable Rao, D Yoni BEAN SPROUT LABORER Unavailable Unavailable Rao, D Yoni BEAN SPROUT LABORER Unavailable Unavailable Rao, D Yoni BEAN SPROUT LABORER Unavailable Unavailable Rao, D Yoni BEAN SPROUT LABORER Unavailable Unavailable Rao, D Yoni BEAN SPROUT LABORER Unavailable Unavailable Rao, D Yoni BEAN SPROUT LABORER Unavailable Unavailable Rao, D Yoni BEAN SPROUT LABORER Unavailable Unavailable Rao, D Yoni BEAN SPROUT LABORER Unavailable Unavailable Rao, D Yoni BEAN SPROUT LABORER Unavailable Unavailable Rao, D Yoni BEAN SPROUT LABORER Unavailable Unavailable Rao, D Yoni BEAN SPROUT LABORER Unavailable Unavailable Rao, D Yoni BEAN SPROUT LABORER Unavailable Unavailable Rao, D Yoni BEAN SPROUT LABORER Unavailable Unavailable Rao, D Yoni BEAN SPROUT LABORER Unavailable Unavailable Rao, D Yoni BEAN SPROUT LABORER Unavailable Unavailable Rao, D Yoni BEAN SPROUT LABORER Unavailable Unavailable Rao, D Yoni BEAN SPROUT LABORER Unavailable Unavailable Rao, D Yoni BEAN SPROUT LABORER Unavailable Unavailable Rao, D Yoni BEAN SPROUT LABORER Unavailable Unavailable Rao, D Yoni BEAN SPROUT LABORER Unavailable Unavailable Aro, D Yoni BEAN SPROUT LABORER Unavailable Unavailable Rao, D Yoni BEAN SPROUT LABORER Unavailable Unavailable Rao, D Yoni BEAN SPROUT LABORER Unavailable Unavailable Rao, D Yoni BEAN SPROUT LABORER Unavailable Unavailable Rao, D Yoni BEAN SPROUT LABORER Unavailable Unavailable Rao, D Yoni BEAN SPROUT LABORER Unavailable Unavailable Rao, D Yoni BEAN SPROUT LABORER Unavailable Unavailable Rao, D Yoni BEAN SPROUT LABORER Unavailable Unavailable Rao, D Yoni BEAN SPROUT LABORER Unavailable Unavailable Rao, D Yoni BEAN SPROUT LABORER Unavailable Unavailable Rao, D Yoni BEAN SPROUT LABORER Unavailable Unavailable Rao, D Yoni BEAN SPROUT LABORER Unavailable Unavailable Rao, D Yoni BEAN SPROUT LABORER Unavailable Unavailable Rao, D Yoni BEAN SPROUT LABORER Unavailable Unavailable Rao, D Yoni BEAN SPROUT LABORER Unavailable Unavailable Rao, D Yoni BEAN SPROUT LABORER Unavailable Unavailable Rao, D Yoni BEAN SPROUT LABORER Unavailable Unavailable Rao, D Yoni BEAN SPROUT LABORER Unavailable Unavailable Rao, D Yoni BEAN SPROUT LABORER Unavailable Unavailable Rao D Yoni BEAN SPROUT LABORER Unavailable Unavailable Precious Rubio MD Unavailable Unavailable Ramiro, Precious Torres MD Unavailable Unavailable FishPrecious MD Unavailable Unavailable Fish, Precious Torres MD Unavailable Unavailable Fish, Precious Torres MD Unavailable Unavailable Fish, Precious Torres MD Unavailable Unavailable Fish, Precious Torres MD Unavailable Unavailable Fish, Precious Torres MD Unavailable Unavailable FishPrecious MD Unavailable Unavailable Fish, Precious Torres MD Unavailable Unavailable FishPrecious MD Unavailable Unavailable Fish, Precious Torres MD Unavailable Unavailable Fish, Precious Torres MD Unavailable Unavailable Fish, Precious Torres MD Unavailable Unavailable Fish, Precious Torres MD Unavailable Unavailable Fish, Precious Torres MD Unavailable Unavailable Fish, Precious Torres MD Unavailable Unavailable Fish, Precious Torres MD Unavailable Unavailable Fish, Precious Torres MD Unavailable Unavailable Fish, Precious Torres MD Unavailable Unavailable Fish, Precious Torres MD Unavailable Unavailable Fish, Precious Torres MD Unavailable Unavailable FishPrecious MD Unavailable Unavailable FishPrecious MD Unavailable Unavailable FishPrecious MD Unavailable Unavailable FishPrecious MD Unavailable Unavailable Fish, Precious Torres MD Unavailable Unavailable Fish, Preciosu Torres MD Unavailable Unavailable FishPrecious MD Unavailable Unavailable Fish, Precious Torres MD Unavailable Unavailable FishPrecious MD Unavailable Unavailable Precious Rubio MD Unavailable Unavailable FishPrecious MD Unavailable Unavailable FishPrecious MD Unavailable Unavailable FishPrecious MD Unavailable Unavailable FishPrecious MD Unavailable Unavailable FishPrecious MD Unavailable Unavailable FishPrecious MD Unavailable Unavailable FishPrecious MD Unavailable Unavailable Precious Rubio MD Unavailable Unavailable FishPrecious MD Unavailable Unavailable Precious Rubio MD Unavailable Unavailable Precious Rubio MD Unavailable Unavailable Fish, Precious Torres MD Unavailable Unavailable FishPrecious MD Unavailable Unavailable FishPrecious MD Unavailable Unavailable FishPrecious MD Unavailable Unavailable Precious Rubio MD Unavailable Unavailable Precious Rubio MD Unavailable Unavailable FishPrecious MD Unavailable Unavailable FishPrecious MD Unavailable Unavailable Fish, Precious Torres MD Unavailable Unavailable Fish, Precious Torres MD Unavailable Unavailable FishPrecious MD Unavailable Unavailable FishPrecious MD Unavailable Unavailable Ramiro B Melissa COLLINS Unavailable Unavailable Fish B Melissa COLLINS Unavailable Unavailable Ramiro B Melissa COLLINS Unavailable Unavailable Ramiro B Melissa COLLINS Unavailable Unavailable Ramiro, B Melissa COLLINS Unavailable Unavailable Ramiro, B Melissa COLLINS Unavailable Unavailable Ramiro, B Melissa COLLINS Unavailable Unavailable Ramiro, B Melissa COLLINS Unavailable Unavailable Ramiro, B Melissa COLLINS Unavailable Unavailable Fish, B Melissa COLLINS Unavailable Unavailable Wineman JR, R Jose F PA-C Unavailable Unavailable Wineman JR, R Jose F PA-C Unavailable Unavailable Wineman JR, R Jose F PA-C Unavailable Unavailable Wineman JR, R Jose F PA-C Unavailable Unavailable Wineman JR, R Jose F PA-C Unavailable Unavailable Wineman JR, R Jose F PA-C Unavailable Unavailable Wineman JR, R Jose F PA-C Unavailable Unavailable Wineman JR, R Jose F PA-C Unavailable Unavailable Wineman JR, R Jose F PA-C Unavailable Unavailable Wineman JR, R Jose F PA-C Unavailable Unavailable Wineman JR, R Jose F PA-C Unavailable Unavailable [id number], [id number] Unavailable Unavailable RUBEN, TONA MAYE PA Unavailable Unavailable RUBEN, TONA MAYE PA Unavailable Unavailable RUBEN, TONA MAYE PA Unavailable Unavailable RUBEN, TONA MAYE PA Unavailable Unavailable RUBEN, TONA MAYE PA Unavailable Unavailable RUBEN, TONA MAYE PA Unavailable Unavailable RUBEN, TONA MAYE PA Unavailable Unavailable RUBEN, TONA MAYE PA Unavailable Unavailable RUBEN, TONA MAYE PA Unavailable Unavailable RUBEN, TONA MAYE PA Unavailable Unavailable RUBEN, TONA MAYE PA Unavailable Unavailable RUBEN, TONA MAYE PA Unavailable Unavailable RUBEN, TONA MAYE PA Unavailable Unavailable RUBEN, TONA MAYE PA Unavailable Unavailable RUBEN, TONA MAYE PA Unavailable Unavailable RUBEN, TONA MAYE PA Unavailable Unavailable RUBEN, TONA MAYE PA Unavailable Unavailable RUBEN, TONA MAYE PA Unavailable Unavailable RUBEN, TONA MAYE PA Unavailable Unavailable RUBEN, TONA MAYE PA Unavailable Unavailable RUBEN, TONA MAYE PA Unavailable Unavailable RUBEN, TONA MAYE PA Unavailable Unavailable Darrel Pyle MD Unavailable Unavailable Darrel Pyle MD Unavailable Unavailable Darrel Pyle MD Unavailable Unavailable Darrel Pyle MD Unavailable Unavailable Darrel Pyle MD Unavailable Unavailable Darrel Pyle MD Unavailable Unavailable Darrel Pyle MD Unavailable Unavailable Darrel Pyle MD Unavailable Unavailable Darrel Pyle MD Unavailable Unavailable Darrel Pyle MD Unavailable Unavailable Darrel Pyle MD Unavailable Unavailable Darrel Pyle MD Unavailable Unavailable Darrel Pyle MD Unavailable Unavailable Darrel Pyle MD Unavailable Unavailable Darrel Pyle MD Unavailable Unavailable Darrel Pyle MD Unavailable Unavailable Darrel Pyle MD Unavailable Unavailable Darrel Pyle MD Unavailable Unavailable Darrel Pyle MD Unavailable Unavailable Darrel Pyle MD Unavailable Unavailable Darrel Pyle MD Unavailable Unavailable Darrel Pyle MD Unavailable Unavailable Darrel Pyle MD Unavailable Unavailable Darrel Pyle MD Unavailable Unavailable Darrel Pyle MD Unavailable Unavailable Darrel Pyle MD Unavailable Unavailable DJOUINI, KIANNA PA-C Unavailable Unavailable DJOUINI, KIANNA PA-C Unavailable Unavailable DJOUINI, KIANNA PA-C Unavailable Unavailable DJOUINI, KIANNA PA-C Unavailable Unavailable DJOUINI, KIANNA PA-C Unavailable Unavailable DJOUINI, KIANNA PA-C Unavailable Unavailable DJOUINI, KIANNA PA-C Unavailable Unavailable Velazquez, Amara MHC Unavailable Unavailable Velazquez, Amara MHC Unavailable Unavailable DJOUINI, KIANNA PA-C Unavailable Unavailable DJOUINI, KIANNA PA-C Unavailable Unavailable DJOUINI, KIANNA PA-C Unavailable Unavailable DJOUINI, KIANNA PA-C Unavailable Unavailable DJOUINI, KIANNA PA-C Unavailable Unavailable ARABELLAOUINI, KIANNA PA-C Unavailable Unavailable Garret Donohue MD Unavailable Unavailable Garret Donohue MD Unavailable Unavailable Garret Donohue MD Unavailable Unavailable Garret Donohue MD Unavailable Unavailable Garret Donohue MD Unavailable Unavailable Garret Donohue MD Unavailable Unavailable Garret Donohue MD Unavailable Unavailable Garret Donohue MD Unavailable Unavailable Garret Donohue MD Unavailable Unavailable Garret Donohue MD Unavailable Unavailable Garret Donohue MD Unavailable Unavailable AliGarret MD Unavailable Unavailable Ali, Garret COLLINS Unavailable Unavailable Ali, Garret COLLINS Unavailable Unavailable Ali, Garret COLLINS Unavailable Unavailable Ali, Garret COLLINS Unavailable Unavailable Ali, Garret COLLINS Unavailable Unavailable Ali, Garret MD Unavailable Unavailable Ali, Garret MD Unavailable Unavailable Ali, Garret MD Unavailable Unavailable Ali, Garret MD Unavailable Unavailable Ali, Garret Unavailable Unavailable Ali, Garret Unavailable Unavailable Ali, Garret Unavailable Unavailable Ali, Garret COLLINS Unavailable Unavailable Ali, Garret Unavailable Unavailable Ali, Garret MD Unavailable Unavailable Ali, Garret MD Unavailable Unavailable Ali, Garret MD Unavailable Unavailable Ali, Garret MD Unavailable Unavailable Ali, Garret Unavailable Unavailable Ali, Garret Unavailable Unavailable Ali, Garret Unavailable Unavailable Ali, Garret MD Unavailable Unavailable Ali, Garret MD Unavailable Unavailable Ali, Garret MD Unavailable Unavailable Ali, Garret MD Unavailable Unavailable Ali, Garrte MD Unavailable Unavailable Ali, Garret MD Unavailable Unavailable Ali, Garret MD Unavailable Unavailable Ali, Garret MD Unavailable Unavailable Ali, Garret COLLINS Unavailable Unavailable Ali, Garret COLLINS Unavailable Unavailable Ali, Garret COLLINS Unavailable Unavailable Ali, Garret COLLINS Unavailable Unavailable Ali, Garret COLLINS Unavailable Unavailable Ali, Garret MD Unavailable Unavailable Ali, Garret MD Unavailable Unavailable Ali, Garret COLLINS Unavailable Unavailable Ali, Garret COLLINS Unavailable Unavailable Ali, Garret COLLINS Unavailable Unavailable Haroon Saxena [facility] [place] Unavailable Unavailable Precious Rubio MD Unavailable Unavailable Precious Rubio MD Unavailable Unavailable Preciosu Rubio MD Unavailable Unavailable Precious Rubio MD Unavailable Unavailable Precious Rubio MD Unavailable Unavailable Precious Rubio MD Unavailable Unavailable Precious Rubio MD Unavailable Unavailable Precious Rubio MD Unavailable Unavailable Precious Rubio MD Unavailable Unavailable Precious Rubio MD Unavailable Unavailable Precious Rubio MD Unavailable Unavailable Precious Rubio MD Unavailable Unavailable Precious Rubio MD Unavailable Unavailable Precious Rubio MD Unavailable Unavailable Precious Rubio MD Unavailable Unavailable Precious Rubio MD Unavailable Unavailable Precious Rubio MD Unavailable Unavailable Precious Rubio MD Unavailable Unavailable Precious Rubio MD Unavailable Unavailable Precious Rubio MD Unavailable Unavailable Precious Rubio MD Unavailable Unavailable Precious Rubio MD Unavailable Unavailable Precious Rubio MD Unavailable Unavailable Precious Rubio MD Unavailable Unavailable Precious Rubio MD Unavailable Unavailable Precious Rubio MD Unavailable Unavailable Fish, B Melissa MD Unavailable Unavailable Fish, B Melissa MD Unavailable Unavailable Fish, B Melissa MD Unavailable Unavailable Fish, B Melissa MD Unavailable Unavailable Fish, B Melissa MD Unavailable Unavailable Fish, B Melissa MD Unavailable Unavailable Fish, B Melissa MD Unavailable Unavailable Fish, B Melissa MD Unavailable Unavailable Fish, B Melissa MD Unavailable Unavailable Fish, B Melissa MD Unavailable Unavailable Fish, B Melissa MD Unavailable Unavailable Fish, B Melissa MD Unavailable Unavailable Fish, B Melissa MD Unavailable Unavailable Fish, B Melissa MD Unavailable Unavailable Fish, B Melissa MD Unavailable Unavailable Fish, B Melissa MD Unavailable Unavailable Fish, B Melissa MD Unavailable Unavailable Fish, B Melissa MD Unavailable Unavailable Fish, B Melissa MD Unavailable Unavailable Fish, B Melissa MD Unavailable Unavailable Fish, B Melissa MD Unavailable Unavailable Fish, B Melissa MD Unavailable Unavailable Fish, B Melissa MD Unavailable Unavailable Fish, B Melissa MD Unavailable Unavailable Fish, B Melissa MD Unavailable Unavailable Fish, B Melissa MD Unavailable Unavailable Fish, B Melissa MD Unavailable Unavailable Fish, B Melissa MD Unavailable Unavailable Fish, B Melissa MD Unavailable Unavailable Fish, B Melissa MD Unavailable Unavailable Fish, B Melissa MD Unavailable Unavailable Fish, B Melissa MD Unavailable Unavailable Fish, B Melissa MD Unavailable Unavailable Fish, B Melissa MD Unavailable Unavailable Fish, B Melissa MD Unavailable Unavailable Fish, B Melissa MD Unavailable Unavailable Fish, B Melissa MD Unavailable Unavailable Fish, B Melissa MD Unavailable Unavailable Fish, B Melissa MD Unavailable Unavailable Re-disclosure Warning The records that you are about to access may contain information from federally-assisted alcohol or drug abuse programs. If such information is present, then the following federally mandated warning applies: This information has been disclosed to you from records protected by federal confidentiality rules (42 CFR part 2). The federal rules prohibit you from making any further disclosure of this information unless further disclosure is expressly permitted by the written consent of the person to whom it pertains or as otherwise permitted by 42 CFR part 2. A general authorization for the release of medical or other information is NOT sufficient for this purpose. The Federal rules restrict any use of the information to criminally investigate or prosecute any alcohol or drug abuse patient.The records that you are about to access may contain highly sensitive health information, the redisclosure of which is protected by Article 27-F of the [facility] Public Health law. If you continue you may have access to information: Regarding HIV / AIDS; Provided by facilities licensed or operated by the [facility] Office of Mental Health; or Provided by the [facility] Office for People With Developmental Disabilities. If such information is present, then the following [facility] mandated warning applies: This information has been disclosed to you from confidential records which are protected by state law. State law prohibits you from making any further disclosure of this information without the specific written consent of the person to whom it pertains, or as otherwise permitted by law. Any unauthorized further disclosure in violation of state law may result in a fine or custodial sentence or both. A general authorization for the release of medical or other information is NOT sufficient authorization for further disc losure. Allergies and Adverse Reactions Type Description Substance Reaction Status Data Source(s ) No Known Food Allergies No Known Food Allergies [facility] Propensity to adverse reactions VICODIN VICODIN [facility] Propensity to adverse reactions LATEX LATEX [facility] Drug allergy MORPHINE MORPHINE [facility] Drug allergy CODEINE CODEINE [facility] Propensity to adverse reactions OPIOID OPIOID HIVES [facility] Family History Family Member Name Family Member Gender Family Member Status Date o f Status Description Data Source(s) Unknown Unknown Problem [facility] ([facility] Encounters Encounter Providers Location Date Indications Data Source(s ) Outpatient Attender: SCARLET MANSFIELD MDConsultant: SCARLET Denney MD 06/18/2021 10:55:00 AM EDT - 06/18/2021 10:55:00 AM EDT [facility] Outpatient Attender: Amara Velazquez MHCConsultant: SCARLET DUPONT MD 06/11/2021 05:11:00 PM EDT - 06/11/2021 05:11:00 PM EDT [facility] Outpatient Attender: Amara Velazquez MHCConsultant: SCARLET DUPONT MD 06/03/2021 03:45:00 PM EDT - 06/03/2021 03:45:00 PM [facility] Outpatient Attender: Amara Velazquez MHCConsultant: SCARLET DUPONT MD 05/28/2021 03:07:00 PM EDT - 05/28/2021 03:07:00 PM EDT [facility] Outpatient Attender: SCARLET MANSFIELD MDConsultant: SCARLET Denney MD 05/16/2021 01:13:00 PM EDT - 05/16/2021 02:13:00 PM EDT [facility] Outpatient Attender: MALVIN RICCI NPConsultant: SCARLET MANSFIELD MD 05/16/2021 01:11:00 PM EDT - 05/16/2021 02:11:00 PM EDT [facility] Outpatient Attender: Amara PABLOA ttender: MALVIN RICCI NPConsultant: SCARLET MANSFIELD MD 05/14/2021 03:59:00 PM EDT - 05/14/2021 03:59:00 PM EDT [facility] Outpatient Attender: JENNIE YEPEZ NPConsultant: SCARLET SCHAFER MD 05/12/2021 08:29:00 AM EDT - 05/12/2021 08:29:00 AM EDT [facility] Emergency Attender: PARAMJIT YUSUFConsultant: SCARLET Denney MD 05/12/2021 07:44:00 AM EDT - 05/12/2021 07:59:00 AM EDT [facility] Patient discharged. Outpatient Attender: MALVIN RICCI NP [facility] 05/07/2021 02 :15:00 PM EDT [facility] ([facility]) Outpatient Attender: MALVIN RICCI NPConsultant: SCARLET MANSFIELD MD 05/07/2021 01:50:00 PM EDT - 05/07/2021 01:50:00 PM EDT [facility] Outpatient Attender: SCARLET MANSFIELD MDConsultant: SCARLET Denney MD 05/07/2021 01:23:00 PM EDT - 05/07/2021 01:23:00 PM EDT [facility] Outpatient Attender: SCARLET MANSFIELD MD [facility] 05/07/2021 0 1:00:00 PM EDT [facility] ([facility]) Outpatient Attender: AVINASH QUINN PAConsultant: SCARLET SCHAFER MD 04/30/2021 09:42:00 AM EDT - 04/30/2021 09:42:00 AM EDT [facility] Outpatient Attender: AVINASH SIMMONS [facility] 04/30 09:40:00 AM EDT [facility] ([facility]) Outpatient Attender: MAYE MIRANDA PAConsultant: SCARLET MANSFIELD MD 04/18/2021 02:00:00 PM EDT - 04/18/2021 02:00:00 PM EDT [facility] Outpatient Attender: KIANNA HAMMCConsultant: SCARLET MANSFIELD MD 04/13/2021 02:13:00 PM EDT - 04/13/2021 02:13:00 PM EDT [facility] Outpatient Attender: KIANNA HOLM PA-C Family Practice 02:10:00 PM EDT [facility] ([facility]) Outpatient Attender: Amara Velazquez MHCConsultant: SCARLET DUPONT MD 04/11/2021 01:06:00 PM EDT - 04/11/2021 01:06:00 PM EDT [facility] Outpatient Attender: Amara Velazquez MHCConsultant: SCARLET DUPONT MD 03/12/2021 03:03:00 PM EDT - 03/12/2021 03:03:00 PM EDT [facility] Outpatient Attender: JENNIE YEPEZ NPConsultant: SCARLET SCHAFER MD 02/07/2021 12:31:00 PM EDT - 02/07/2021 12:31:00 PM EDT [facility] Outpatient Attender: Amara Velazquez MHCConsultant: SCARLET DUPONT MD 02/05/2021 03:11:00 PM EDT - 02/05/2021 03:11:00 PM EDT [facility] Outpatient Attender: SCARLET MANSFIELD MD Family Practice 02/04/2021 0 1:00:00 PM EDT [facility] ([facility]) Outpatient Attender: SCARLET MANSFIELD MDConsultant: SCARLET Denney MD 02/04/2021 12:59:00 PM EDT - 02/04/2021 12:59:00 PM EDT [facility] OFFICE OUTPATIENT VISIT 15 MINUTES Attender: Melissa Rubio MD Phy sical Therapy 01/30/2021 10:00:00 AM EDT [facility] ([facility] Outpatient Attender: Melissa Rubio MDConsultant: SCARLET Denney MD 01/27/2021 12:33:00 PM EDT - 01/27/2021 01:33:00 PM EDT [facility] Outpatient Attender: AVINASH QUINN PAConsultant: SCARLET SCHAFER MD 01/27/2021 11:27:00 AM EDT - 01/27/2021 11:27:00 AM EDT [facility] Outpatient Attender: AVINASH SIMMONS [facility] 01/27 11:20:00 AM EDT [facility] ([facility] Outpatient Attender: Amara Velazquez MHCConsultant: SCARLET DUPONT MD 01/01/2021 03:04:00 PM EDT - 01/01/2021 03:04:00 PM EDT [facility] Outpatient Attender: Yoni Yeh NPConsultant: SCARLET ALONSO MD 12/24/2020 01:50:00 PM EDT - 12/24/2020 01:50:00 PM EDT [facility] Outpatient Attender: Juliana SIMMONS-CConsultant: SCARLET DUPONT MD 12/21/2020 01:47:00 PM EDT - 12/21/2020 01:47:00 PM EDT [facility] Outpatient Attender: JENNIE YEPEZ NP Family Practice 12/13 02:50:00 PM EDT [facility] ([facility] Outpatient Attender: JENNIE YEPEZ NPConsultant: SCARLET SCHAFER MD 12/13/2020 02:36:00 PM EDT - 12/13/2020 02:36:00 PM EDT [facility] Outpatient Attender: Amara Velazquez MHCConsultant: SCARLET DUPONT MD 12/04/2020 03:01:00 PM EDT - 12/04/2020 03:01:00 PM EDT [facility] Outpatient Attender: Jose F Negro JR Family Practice 11/30 02:20:00 PM EDT [facility] ([facility] Outpatient Attender: Jose F Negro JRConsultant: SCARLET SCHAFER MD 11/30/2020 02:18:00 PM EDT - 11/30/2020 02:18:00 PM EDT [facility] Outpatient Attender: JENNIE MEJIASJONNATHANNIRANJAN NPConsultant: SCARLET SCHAFER MD 11/21/2020 03:35:00 PM EDT - 11/21/2020 03:35:00 PM EDT [facility] Outpatient Attender: Amara Velazquez MHCConsultant: SCARLET DUPONT MD 11/13/2020 03:03:00 PM EDT - 11/13/2020 03:03:00 PM EDT [facility] Outpatient Attender: Amara Velazquez MHCConsultant: SCARLET DUPONT MD 10/29/2020 02:58:00 PM EST - 10/29/2020 02:58:00 PM [facility] Outpatient Attender: AVINASH QUINN PAConsultant: SCARLET SCHAFER MD 10/25/2020 11:21:00 AM EST - 10/25/2020 11:21:00 AM [facility] Outpatient Attender: AVINASH SIMMONS Family Practice 10/25 10:20:00 AM EST [facility] Outpatient Attender: AVINASH QUINN PAConsultant: SCARLET SCHAFER MD 10/18/2020 01:03:00 PM EST - 10/18/2020 02:03:00 PM [facility] Outpatient Attender: Amara Velazquez MHCConsultant: SCARLET DUPONT MD 10/16/2020 02:56:00 PM EST - 10/16/2020 02:56:00 PM [facility] Outpatient Attender: AVINASH QUINN PAConsultant: SCARLET SCHAFER MD 09/24/2020 11:05:00 AM EST - 09/24/2020 11:05:00 AM [facility] Outpatient Attender: Amara Velazquez MHCConsultant: SCARLET DUPONT MD 09/18/2020 02:50:00 PM EST - 09/18/2020 02:50:00 PM [facility] Outpatient Attender: Shiv Esquivel PAConsultant: SCARLET ALONSO MD 09/17/2020 10:56:00 AM EST - 09/17/2020 10:56:00 AM [facility] Outpatient Attender: Amara Velazquez MHCConsultant: SCARLET DUPONT MD 09/04/2020 02:55:00 PM EST - 09/04/2020 02:55:00 PM [facility] Outpatient Attender: SCARLET MANSFIELD MDConsultant: SCARLET Denney MD 09/02/2020 09:21:00 AM EST - 09/02/2020 09:21:00 AM [facility] Outpatient Attender: SCARLET MANSFIELD MD Family Practice 09/02/2020 0 8:20:00 AM EST [facility] ([facility]) Outpatient Attender: Garret Donohue MD Main office [facility] 08/29/2020 01:15:00 PM EST [facility] ([facility] Outpatient Attender: Amara Velazquez MHCConsultant: SCARLET DUPONT MD 08/12/2020 03:55:00 PM EST - 08/12/2020 03:55:00 PM [facility] Outpatient Attender: AVINASH QUINN PAConsultant: SCARLET SCHAFER MD 08/12/2020 02:50:00 PM EST - 08/12/2020 02:50:00 PM [facility] Outpatient Attender: [id number] 08/12/2020 02:00:00 PM EST [facility] ([facility] Outpatient Attender: Melissa Rubio MD Physical Therapy 08/09 02:00:00 PM EST [facility] ([facility] Outpatient Attender: SCARLET MANSFIELD MDConsultant: SCARLET Denney MD 08/01/2020 02:57:00 PM EST - 08/01/2020 02:57:00 PM [facility] Outpatient Attender: SCARLET MANSFIELD MD Family Practice 08/01/2020 0 2:00:00 PM EST [facility] ([facility] Outpatient Attender: Amara Velazquez MHCConsultant: SCARLET DUPONT MD 07/30/2020 10:40:00 AM EST - 07/30/2020 10:40:00 AM EST [facility] Outpatient Attender: BRIAN MINER WReferrer: Derek Pyle MDConsultant: SCARLET MANSFIELD MD 06/19/2020 10:00:00 AM E DT - 06/19/2020 10:00:00 AM EDT [facility] Outpatient Attender: REGGIE MERCADO NPConsultant: SCARLET ALONSO MD 06/18/2020 11:36:00 AM EDT - 06/18/2020 12:36:00 PM EDT [facility] Outpatient Attender: Melissa Rubio MDRef errer: Melissa Rubio MDConsultant: SCARLET MANSFIELD MD 06/18/2020 09:50:00 AM EDT - 06/18/2020 10:00:00 AM EDT [facility] Patient discharged. Outpatient Attender: Melissa Rubio MD Physical Therapy 06/06 03:00:00 PM EDT [facility] ([facility] Outpatient Attender: REGGIE MERCADO NPConsultant: SCARLET ALONSO MD 06/04/2020 01:53:00 PM EDT - 06/04/2020 02:53:00 PM EDT [facility] Outpatient Attender: DOLLY TAYLOR PAConsultant: SCARLET MANSFIELD MD 05/26/2020 01:52:00 PM EDT - 05/26/2020 01:52:00 PM EDT [facility] Outpatient Attender: JENNIE YEPEZ NPConsultant: SCARLET SCHAFER MD 05/15/2020 12:20:00 PM EDT - 05/15/2020 12:20:00 PM EDT [facility] Outpatient Attender: JENNIE YEPEZ NP Family Practice 05/15 12:15:00 PM EDT [facility] ([facility] Outpatient Attender: SCARLET MANSFIELD MD Family Practice 05/13/2020 0 1:00:00 PM EDT [facility] ([facility]) Outpatient Attender: SCARLET MANSFIELD MDConsultant: SCARLET Denney MD 05/13/2020 12:59:00 PM EDT - 05/13/2020 12:59:00 PM EDT [facility] Outpatient Attender: Dina Saxena [employer] BILLER Referrer: Derek Pyle MDConsultant: SCARLET MANSFIELD MD 04/10/2020 03:03:00 PM EDT - 04/10/2020 03:03:00 PM EDT [facility] Outpatient Attender: SCARLET MANSFIELD MDConsultant: SCARLET Denney MD 04/02/2020 03:49:00 PM EDT - 04/02/2020 04:49:00 PM EDT [facility] Outpatient Attender: SCARLET MANSFIELD MDConsultant: SCARLET Denney MD 04/01/2020 03:02:00 PM EDT - 04/01/2020 03:02:00 PM EDT [facility] Emergency Attender: GREGG DING DOConsultant: SCARLET Denney MD 03/30/2020 12:57:00 PM EDT - 03/30/2020 04:36:00 PM EDT [facility] Patient discharged. Immunizations Vaccine Date Status Description Data Source(s) COVID-19 VACCINE Moderna 01/23/2021 12:00:00 AM EDT completed [facility] Vaccine Series Complete: YESThis Data wa s Submitted to [facility] [employer]. COVID-19 VACCINE Moderna 12/26/2020 12:00:00 AM EDT completed [facility] Vaccine Series Complete: NOThis Data was Submitted to [facility] [employer]. New in 2011. IIV4 05/13/2020 01:40:00 PM EDT completed [facility] ([facility]) Medications Medication Brand Name Start Date Product Form Dose Route Admi nistrative Instructions Pharmacy Instructions Status Indications Reaction Description Data Source(s) Metronidazole 500 MG Oral Tablet Metronidazole 05/19/2021 12:00:00 AM EDT ORAL active [facility] ([facility]) Fluconazole 150 MG Oral Tablet Fluconazole 05/19/2021 12:00:00 AM EDT ORAL active [facility] ([facility]) Ciprofloxacin 250 MG Oral Tablet [Cipro] Cipro 05/08/2021 12:00: 00 AM EDT ORAL completed [facility] ([facility]) Emgality Emgality 05/07/2021 12:00:00 AM EDT activ e [facility] ([facility]) Fluconazole 150 MG Oral Tablet Fluconazole 05/07/2021 12:00:00 AM EDT ORAL active [facility] ([facility]) Vitamin B 12 1 MG Oral Tablet Vitamin B-12 03/24/2021 12:00:00 AM EDT ORAL active [facility] ([facility]) rizatriptan 10 MG Disintegrating Oral Tablet Rizatriptan Joel zoate 01/02/2021 12:00:00 AM EDT completed [facility] ([facility]) rizatriptan 10 MG Disintegrating Oral Tablet Rizatriptan Joel zoate 01/02/2021 12:00:00 AM EDT active M [facility] ([facility]) tizanidine 4 MG Oral Tablet Tizanidine HCL 12/24/2020 12:00:00 AM EDT ORAL completed [facility] ([facility]) Naproxen 500 MG Oral Tablet Naproxen 12/24/2020 12:00:00 AM EDT ORAL completed [facility] ([facility]) Ketorolac (Toradol) Inj 30MG/ML 12/21/2020 12:00:00 AM EDT completed [facility] ([facility]) Medication administered onsite Ketorolac (Toradol) Inj 30MG/ML 11/30/2020 12:00:00 AM EDT completed [facility] ([facility]) Medication administered onsite Pseudoephedrine Hydrochloride 60 MG Oral Tablet Pseudoephedr ine HCL 09/17/2020 12:00:00 AM EST ORAL completed [facility] ([facility]) Aimovig Aimovig 08/29/2020 12:00:00 AM EST active [facility] ([facility]) Vraylar Vraylar 08/10/2020 12:00:00 AM EST ORAL active [facility] ([facility]) Ibuprofen 800 MG Oral Tablet Ibuprofen 08/09/2020 12:00:00 AM EST active [facility] ([facility]) [place] Carbonate 600 MG Oral Capsule [place] Carbonate 12:00:00 AM EST ORAL active [facility] ([facility]) [place] Carbonate 150 MG Oral Capsule [place] Carbonate 12:00:00 AM EST ORAL active [facility] ([facility]) rizatriptan 10 MG Disintegrating Oral Tablet [Maxalt] 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 08/04/2020 12:00:00 AM EST ORAL completed [facility] ([facility]) 24 HR Nicotine 0.583 MG/HR Transdermal Patch Nicotine 07/24/2020 12:00:00 AM EST completed [facility] ([facility]) Ofloxacin 3 MG/ML Ophthalmic Solution Ofloxacin (Ophthalmic) 05/26/2020 12:00:00 AM EDT completed [facility] ([facility]) Ergocalciferol 75101 UNT Oral Capsule Vitamin D (Ergocalcife rol) 05/13/2020 12:00:00 AM EDT ORAL active M [facility]ENT ([facility]) montelukast 10 MG Oral Tablet Montelukast Sodium 05/13/2020 12:00:00 AM EDT ORAL active [facility] ([facility]) Flonase Allergy Relief Flonase Allergy Relief 05/13/2020 12:00:00 AM EDT NASAL active [facility] ([facility]) Amitriptyline Hydrochloride 10 MG Oral Tablet Amitriptyline HCL 04/18/2020 12:00:00 AM EDT ORAL completed [facility] ([facility] Fluconazole 150 MG Oral Tablet Fluconazole 04/01/2020 12:00:00 AM EDT ORAL completed [facility] ([facility]) Escitalopram 10 MG Oral Tablet [Lexapro] Lexapro 04/01/2020 12:00: 00 AM EDT ORAL completed [facility] ([facility]) Sumatriptan Succinate Sumatriptan Succinate 03/25/2020 12:00:00 AM EDT completed [facility] ([facility]) 24 HR Propranolol Hydrochloride 60 MG Extended Release Oral Capsule Propranolol HCL ER 03/25/2020 12:00:00 AM EDT ORAL completed [facility] ([facility]) Loratadine 10 MG Oral Tablet [Claritin] Claritin 03/25/2020 12:00:0 0 AM EDT ORAL completed [facility] ([facility]) Insurance Providers Payer name Policy type / Coverage type Policy ID Covered libertarian ID Covered libertarian's relationship to kyle Policy Kyle Plan Information Medicaid Dental S [id number] [facility] I [id number] Self [id number] [facility] Medigap Part B [id number] Self [employer] COMMUNITY PLAN MCDHMO [id number] SP [id number] [facility] Health Maintenance Organization (HMO) [id number] Self [employer] COMMUNITY PLAN MCDHMO [id number] SP [id number] [employer] COMMUNITY PLAN MCDHMO [id number] SP [id number] UN[employer] AMERICHOICE XIX -HMO [id number] 18 [id number] [employer] COMMUNITY PLAN MCDHMO [id number] SP [id number] [place] [id number] SP [id number] [place] [id number] SP [id number] [employer] COMMUNITY PLAN MCDHMO [id number] SP [id number] SELF PAY ONLY [id number] SP [id number] [facility] COMMUNITY PLAN [place] [id number] 18 [id number] UN[employer] AMERICHOICE XIX -HMO [id number] 18 [id number] [employer] COMMUNITY PLAN MCDHMO [id number] SP [id number] [facility] COMMUNTY PLAN MC [id number] 18 [id number] [employer] COMMUNITY PLAN XIX [id number] 18 [id number] [facility] [id number] SP [id number] MEDICAID [id number] SP [id number] [employer] COMMUNITY PLAN MCDHMO [id number] SP [id number] [facility] Community Plan Commercial [id number] Self [id number] [facility] Community Plan Commercial [id number] Self [id number] [facility] Communty Plan Medicaid [id number] Self [id number] [facility] Health Maintenance Organization (HMO) [id number] Self [id number] [facility] Community Plan Commercial [id number] Self [id number] [facility] Communty Plan Medicaid [id number] 0.6939.0 Self [id number] [facility] Community Plan Commercial [id number] Self [id number] [facility] Communty Plan Medicaid [id number] 0.6939.0 Self [id number] [facility] Community Plan Commercial [id number] .[id number] Self [id number] [facility] Communty Plan Medicaid [id number] 0.6939.0 Self [id number] [facility] Community Plan Commercial [id number] .[id number] Self [id number] [facility] Communty Plan Medicaid [id number] 0.6939.0 Self [id number] [facility] Community Plan Commercial [id number] Self [id number] [facility] COMMUNITY PLAN [id number] 18 [id number] [facility] Community Plan Commercial [id number] .[id number] Self [id number] [facility] Communty Plan Medicaid [id number] 0.6939.0 Self [id number] [facility] Community Plan Commercial [id number] .[id number] Self [id number] [facility] Communty Plan Medicaid [id number] 0.6939.0 Self [id number] [facility] Community Plan Commercial [id number] Self [id number] [facility] Community Plan Commercial [id number] .[id number] Self [id number] [facility] Communty Plan Medicaid [id number] 0.6939.0 Self [id number] [facility] Community Plan Commercial [id number] .[id number] Self [id number] [facility] Communty Plan Medicaid [id number] 0.6939.0 Self [id number] [facility] Communty Plan Medicaid [id number] 0.6939.0 Self [id number] [facility] Community Plan Commercial [id number] .[id number] Self [id number] [place] [id number] [facility] O [id number] S [id number] [facility] Communty Plan Medicaid [id number] [id number] 0.6939.0 Self [id number] Medicaid Commercial [id number] Self [id number] MEDICAID -PHYSICIAN [id number] MEDICAID -O/P EMERGENCY ROOM [id number] [facility] [place] [id number] 18 [id number] SELF PAY ONLY UNAVAILABLE SP UNAV AILABLE [facility] Community Plan Medicaid [id number] Self [id number] [facility](MCAID) O [id number] S [id number] [facility] HEA [id number] S [id number] [facility](MCAID) O [id number] S [id number] [facility] Health Maintenance Organization (HMO) [id number] Family Dependent [employer] AMERICHOICE XIX -HMO [id number] 18 [id number] [facility] [place] [id number] 10 [id number] [facility](MCAID) O [id number] S [id number] D Managed Care [employer] P [id number] S [id number] [facility] Health Maintenance Organization (HMO) [id number] Self [employer]HC AMERICHOICE XIX -HMO [id number] 18 [id number] D Managed Care [facility] P UNAVAILABLE S UNAVAILABLE Medicaid Dental S UNAVAILABLE S UN AVAILABLE [facility] [id number] SP [id number] [facility] [id number] SP [id number] MEDICAID [id number] SP [id number] O BLUE [id number] SP [id number] O BLUE [id number] SP [id number] [facility] [id number] [facility] [id number] MEDICAID [id number] SP [id number] [facility]ALTH [id number] SP [id number] UNHC COMMUNITY PLAN MCDO [id number] SP [id number] [facility] [id number] SP [id number] UNHC COMMUNITY PLAN MCDHMO [id number] SP [id number] [facility] LIBBY [id number] SP [id number] UNHC COMMUNITY PLAN MCDO [id number] SP [id number] [facility] COMMUNITY PLAN CO [id number] 18 [id number] [facility] COMMUNTY PLAN [id number] 18 [id number] [facility] COMMUNITY PLAN XIX [id number] 18 [id number] Problems, Conditions, and Diagnoses Code Display Name Description Problem Type Effective Dates Data Source(s) F1220 Cannabis dependence, uncomplicated Cannabis depe ndence, uncomplicated Diagnosis 06/03/2021 03:45:00 PM EDT [facility] F3160 Bipolar disorder, current episode mixed, unspecified Bipolar disorder, current episode mixed, unspecified Diagnosis 06/03/2021 03:45:00 PM ED T [facility] Z1152 ENCOUNTER FOR SCREENING FOR COVID-19 ENCOUNTER F OR SCREENING FOR COVID-19 Diagnosis 05/12/2021 08:29:00 AM EDT [facility] Z5320 Procedure and treatment not carried out because of patient's decision for unspecified reasons Procedure and treatment not carried out because of patient's decision for unspecified reasons Diagnosis 05/12/2021 07:44:00 AM EDT [facility] B16098 Nicotine dependence, cigarettes, uncompl icated Nicotine dependence, cigarettes, uncomplicated Diagnosis 05/12/2021 07:44:00 AM EDT [facility] J029 Acute pharyngitis, unspecified Acute pharyngitis, unsp ecified Diagnosis 05/12/2021 07:44:00 AM EDT [facility] Z113 Encounter for screening for infections with a predominantly sexual mode of transmission Encounter for screening for infections w ith a predominantly sexual mode of transmission Diagnosis 05/07/2021 01:50:00 PM EDT [facility] B373 Candidiasis of vulva and vagina Candidiasis of vulva a nd vagina Diagnosis 05/07/2021 01:50:00 PM EDT [facility] D519 Vitamin B12 deficiency anemia, unspecifi ed Vitamin B12 deficiency anemia, unspecified Diagnosis 05/07/2021 01:23:00 PM EDT [facility] E559 Vitamin D deficiency, unspecified Vitamin D defi ciency, unspecified Diagnosis 05/07/2021 01:23:00 PM EDT [facility] G51628 Migraine without aura, not intractable, without status migrainosus Migraine without aura, not intractable, without status migrainosus Diagnosis 05/07/2021 01:23:00 PM EDT [facility] 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, in remission Alcohol abuse, in remissio n Diagnosis 04/30/2021 09:42:00 AM EDT [facility] J069 Acute upper respiratory infection, unspe cified Acute upper respiratory infection, unspecified Diagnosis 04/18/2021 02:00:00 PM EDT [facility] E611 Iron deficiency Iron deficiency Diagnosis 02/04/2021 12:5 9:00 PM EDT [facility] J309 Allergic rhinitis, unspecified Allergic rhinitis, unsp ecified Diagnosis 02/04/2021 12:59:00 PM EDT [facility] D693 Immune thrombocytopenic purpura Immune thrombocytopeni c purpura Diagnosis 02/04/2021 12:59:00 PM EDT [facility] R946 Abnormal results of thyroid function sameer dies Abnormal results of thyroid function studies Diagnosis 01/27/2021 12:33:00 PM EDT [facility] Y53687 Muscle spasm of back Muscle spasm of back Diagnosis 12/24/2020 01:50:00 PM EDT [facility] R05 Cough Cough Diagnosis 12/13/2020 02:36:00 PM ED T [facility] F1120 Opioid dependence, uncomplicated Opioid dependen ce, uncomplicated Diagnosis 10/29/2020 02:58:00 PM [facility] 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 Diagnosis 10/16/2020 02:56:00 PM [facility] 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 Diagnosis 09/18/2020 02:50:00 PM [facility] 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 Diagnosis 09/17/2020 10:56:00 AM [facility] A10414 Migraine with aura, not intractable, wit hout status migrainosus Migraine with aura, not intractable, without status migrainosus Diagnosis 09/02/2020 09:21:00 AM [facility] E0590 Thyrotoxicosis, unspecified without thyr otoxic crisis or storm Thyrotoxicosis, unspecified without thyrotoxic crisis or storm Diagnosis 08/01/2020 02:57:00 PM [facility] F609 Personality disorder, unspecified Personality di sorder, unspecified Diagnosis 08/01/2020 02:57:00 PM [facility] X77158 Other mucopurulent conjunctivitis, bilat eral Other mucopurulent conjunctivitis, bilateral Diagnosis 05/26/2020 01:52:00 PM EDT [facility] Z23 Encounter for immunization Encounter for immunization Diagnosis 05/13/2020 12:59:00 PM EDT [facility] D649 Anemia, unspecified Anemia, unspecified Diagnosis 0 05/13/2020 12:59:00 PM EDT [facility] F339 Major depressive disorder, recurrent, un specified Major depressive disorder, recurrent, unspecified Diagnosis 05/13/2020 12:59:00 PM EDT [facility] D51.9 Cobalamin deficiency Cobalamin deficiency Problem 05/07/2021 12:00:00 AM EDT [facility] ([facility]) G43.009 Migraine without aura, not refractory Mi graine without aura, not refractory Problem 02/04/2021 12:00:00 AM EDT [facility] ([facility]) J30.9 Allergic rhinitis Allergic rhinitis Problem 02/04/2021 12:00:00 AM EDT [facility] ([facility]) F12.20 Cannabis dependence, uncomplicated Cannabis depe ndence, uncomplicated Problem 06/19/2020 12:00:00 AM EDT [facility] ([facility]) F60.9 Personality disorder Personality disorder Problem 06/19/2020 12:00:00 AM EDT [facility] ([facility]) Surgeries/Procedures Procedure Description Date Indications Data Source(s) Brief Emotional/Behav Assessment W/ Scoring Doc Per Standard Inst 05/07/2021 12:00:00 AM EDT [facility] ([facility]) Admin Patient Focused Health Risk Assessment Instrument 05/07/2021 12:00:00 AM EDT [facility] ([facility]) OFFICE OUTPATIENT NEW 30 MINUTES 05/07/2021 12:00:00 A M EDT [facility] ([facility]) OFFICE OUTPATIENT VISIT 15 MINUTES 05/07/2021 12:00:00 AM EDT [facility] ([facility]) OFFICE OUTPATIENT VISIT 25 MINUTES 04/30/2021 12:00:00 AM EDT [facility] ([facility]) OFFICE OUTPATIENT NEW 10 MINUTES 04/18/2021 12:00:00 A M EDT [facility] ([facility]) Pulse Oximetry Single Determination 04/13/2021 12:00:0 0 AM EDT [facility] ([facility]) OFFICE OUTPATIENT VISIT 15 MINUTES 04/13/2021 12:00:00 AM EDT [facility] ([facility]) OFFICE OUTPATIENT VISIT 15 MINUTES 02/04/2021 12:00:00 AM EDT [facility] ([facility]) OFFICE OUTPATIENT VISIT 15 MINUTES 01/30/2021 12:00:00 AM EDT [facility] ([facility] ) OFFICE OUTPATIENT VISIT 25 MINUTES 01/27/2021 12:00:00 AM EDT [facility] ([facility]) OFFICE OUTPATIENT VISIT 15 MINUTES 12/24/2020 12:00:00 AM EDT [facility] ([facility]) OFFICE OUTPATIENT VISIT 15 MINUTES 12/21/2020 12:00:00 AM EDT [facility] ([facility]) OFFICE OUTPATIENT VISIT 15 MINUTES 12/13/2020 12:00:00 AM EDT [facility] ([facility]) OFFICE OUTPATIENT NEW 10 MINUTES 11/30/2020 12:00:00 A M EDT [facility] ([facility]) OFFICE OUTPATIENT VISIT 25 MINUTES 10/25/2020 12:00:00 AM EST [facility] ([facility]) Psychiatric Diag Eval W/Medical Service 09/24/2020 12: 00:00 AM EST [facility] ([facility]) OFFICE OUTPATIENT VISIT 25 MINUTES 08/09/2020 12:00:00 AM EST [facility] ([facility]) Psychiatric Diagnostic Evaluation 06/19/2020 12:00:00 AM EDT [facility] ([facility]) Injection, Single Or Multiple trigger points one or two musc les 05/22/2020 12:00:00 AM EDT [facility] ([facility]) INJECTION ANES OTHER PERIPHERAL NERVE/BRANCH 0 12:00:00 AM EDT [facility] ([facility]) Results ID Date Data Source [id number] 06/04/2021 07:40:00 PM EDT [facility] Name Value Range Interpretation Code Description Data Yadi rce(s) Supporting Document(s) SARS coronavirus 2 RNA [Presence] in Res piratory specimen by ANNE with probe detection NEGATIVE [facility] This lab was ordered by [facility] a nd reported by [facility]. ID Date Data Source [id number] 05/30/2021 02:29:00 PM EDT [facility] ([facility]) Name Value Range Interpretation Code Description Data Yadi rce(s) Supporting Document(s) White Blood Count 17.0 10 4.0-10.0 Above high normal [facility] ([facility]) Red Blood Count 4.67 10 4.00-5.40 Normal (applies to non-numeric results) [facility] ([facility]) Hemoglobin 14.4 g/dL 12.0-15.5 Normal (applies to non-numeric resul ts) [facility] ([facility]) Hematocrit 44.1 % 36.0-47.0 Normal (applies to non-numeric resul ts) [facility] ([facility]) Mean Corpuscular Volume 94.4 fl 80.0-96.0 Normal ( applies to non-numeric results) [facility] ([facility]) Mean Corpuscular HGB Conc 32.7 g/dL 32.0-36.5 Normal (applies to non-numeric results) [facility] ([facility]) Mean Corpuscular Hemoglobin 30.8 pg 27.0-33.0 Norm al (applies to non-numeric results) [facility] ([facility]) Nucleated Red Blood Cell % 0.0 % 0-0 Normal (applies to n on-numeric results) [facility] ([facility]) Red Cell Distribution Width 13.5 % 11.5-14.5 Norm al (applies to non-numeric results) [facility] ([facility]) Platelet Count, Automated 356 10 150-450 Normal (applies to non-numeric results) [facility] ([facility]) ID Date Data Source [id number] 05/30/2021 02:29:00 PM EDT [facility] ([facility]) Name Value Range Interpretation Code Description Data Yadi rce(s) Supporting Document(s) Ethanol [Mass/volume] in Serum or Plasma Laboratory test result 0.000-0.010 Normal (applies to non-numeric results) [facility] ([facility]) <content>note:<nlbl:demographic_changed> </content>
<content></content> Salicylates [Mass/volume] in Serum or Plasma 5.4 mg/dL 5.0 -30.0 Normal (applies to non-numeric results) [facility] ([facility]) <content>note:<nlbl:demographic_changed> </content>
<content></content> Acetaminophen [Mass/volume] in Serum or Plasma Laboratory test r esult 10.0-30.0 Below low normal [facility] ([facility]) <content>note:<nlbl:demographic_changed> </content>
<content></content> Thyrotropin [Units/volume] in Serum or Plasma 0.283 uIU/ML 0. 358-3.740 Below low normal [facility] ([facility]) <content>note:<nlbl:demographic_changed> </content>
<content></content> Choriogonadotropin.beta subunit ( test) [Pres ence] in Serum or Plasma Laboratory test result Normal (applies to non-numeric results) [facility] ([facility]) <content>note:<nlbl:demographic_changed> </content>
<content></content> ID Date Data Source [id number] 05/30/2021 02:29:00 PM EDT [facility] ([facility]) Name Value Range Interpretation Code Description Data Yadi rce(s) Supporting Document(s) Glucose, Fasting 96 mg/dL 70-100 Normal (applies to non-numeric results) [facility] [facility] Blood Urea Nitrogen 18 mg/dL 7-18 Normal (applies to non-nume boby results) [facility] ([facility]) Creatinine For GFR 1.05 mg/dL 0.55-1.30 Normal (applies to non -numeric results) [facility] ([facility]) Sodium Level 141 meq/L 136-145 Normal (applies to non-numeric res ults) [facility] ([facility]) Glomerular Filtration Rate Laboratory test result Normal (applies to non- numeric results) [facility] ([facility]) <content>Units are mL/min/1.73 m2</content>
<content></content>
<content>Chronic Kidney Disease Staging per NK[facility]:</content>
<content></content>
<content>Stage I & II GFR >=60 Normal to Mildly Decreased</content>
<content>Stage III GFR 30- 59 Moderately Decreased</content>
<content>Stage IV GFR 15-29 Severely Decreased</content>
<content>Stage V GFR <15 Very Little GFR Left</content>
<content>ESRD GFR <15 on ENGINEERING [employer]ELOPMENT DIRECTOR</content>
<content></content> Potassium Serum 3.8 meq/L 3.5-5.1 Normal (applies to non-numeric results) [facility] ([facility]) Chloride Level 107 meq/L 98-107 Normal (applies to non-numeric r esults) [facility] ([facility]) Carbon Dioxide Level 26 meq/L 21-32 Normal (applies to non-num maye results) [facility] ([facility]) Anion Gap 8 meq/L 8-16 Normal (applies to non-numeric resul ts) [facility] ([facility]) Calcium Level 10.2 mg/dL 8.5-10.1 Above high normal [facility] ([facility]) ID Date Data Source [id number] 05/30/2021 02:29:00 PM EDT [facility] ([facility]) Name Value Range Interpretation Code Description Data Yadi rce(s) Supporting Document(s) Alkaline Phosphatase 83 U/L 45-117 Normal (applies to non-num maye results) [facility] ([facility]) Alt/SGPT 23 U/L 12-78 Normal (applies to non-numeric resul ts) [facility] ([facility]) Ast/Sgot 19 U/L 7-37 Normal (applies to non-numeric resul ts) [facility] ([facility]) Bilirubin,Direct 0.2 mg/dL 0.0-0.2 Normal (applies to non-numeric results) [facility] ([facility]) Bilirubin,Total 0.7 mg/dL 0.2-1.0 Normal (applies to non-numeric results) [facility] ([facility]) Albumin 4.4 GM/DL 3.2-5.2 Normal (applies to non-numeric resul ts) [facility] ([facility]) Total Protein 8.1 GM/DL 6.4-8.2 Normal (applies to non-numeric re sults) [facility] ([facility]) Albumin/Globulin Ratio 1.2 1.2-2.2 Normal (applies to non-n umeric results) [facility] ([facility]) ID Date Data Source [id number] 05/30/2021 02:29:00 PM EDT [facility] ([facility]) Name Value Range Interpretation Code Description Data Yadi rce(s) Supporting Document(s) [place] [Mass/volume] in Serum or Plasma 0.34 meq/L 0.60-1.20 Below low normal [facility] ([facility]) <content>note:<nlbl:[email or web address]> </content>
<content></content> ID Date Data Source [id number] 05/30/2021 02:29:00 PM EDT [facility] ([facility]) Name Value Range Interpretation Code Description Data Yadi rce(s) Supporting Document(s) Influenza A Amplification Laboratory test result Normal (applies to non- numeric results) [facility] ([facility]) Negative results do not preclude influen za or RSV virus infection and should not be used as the sole basis for treatment or other patient management decisions. Influenza B Amplification Laboratory test result Normal (applies to non- numeric results) [facility] ([facility]) Negative results do not preclude influen za or RSV virus infection and should not be used as the sole basis for treatment or other patient management decisions. RSV Amplification Laboratory test result Normal (applies to non-numeric results) [facility] ([facility]) Negative results do not preclude influen za or RSV virus infection and should not be used as the sole basis for treatment or other patient management decisions. Laboratory test finding (navigational concept) Laboratory test r esult Normal (applies to non-numeric results) [facility] ([facility]) A false negative result may occur if a s pecimen is improperly collected, transported or handled. False [...] pathogens. DISCLAIMER: Testing was performed using the [employer] SARS-CoV-2 test. This test was developed and its performance characteristics determined by [employer]. This test has not been FDA cleared [...] the authorization is terminated or revoked sooner. ID Date Data Source [id number] 05/30/2021 02:29:00 PM EDT [facility] Name Value Range Interpretation Code Description Data Yadi rce(s) Supporting Document(s) SARS coronavirus 2 RNA [Presence] in Res piratory specimen by ANNE with probe detection NEGATIVE [facility] This lab was ordered by [facility] a nd reported by [facility]. ID Date Data Source [id number] 05/30/2021 01:36:00 PM EDT [facility] ([facility]) Name Value Range Interpretation Code Description Data Yadi rce(s) Supporting Document(s) Barbiturates Urine Laboratory test result Normal (applies to non-numeric results) [facility] ([facility]) Amphetamines Level Urine Laboratory test result Normal (applies to non-numeric results) [facility] ([facility]) Benzodiazepines Urine Laboratory test result [place] (applies to non-numeric results) [facility] ([facility]) Cocaine Metabolite Urine Laboratory test result Above high normal [facility] ([facility]) Cannabinoids Urine Laboratory test result Above high sharon l [facility] ([facility]) Opiates Urine Laboratory test result Normal (applies t o non-numeric results) [facility] ([facility]) Phencyclidine Urine Laboratory test result Sharon l (applies to non-numeric results) [facility] ([facility]) ALL PRESUMPTIVE POSITIVE FINDINGS AR E UNCONFIRMED THRESHOLD IN NG/ML AMPHETAMINES/METHAMPHET 1000 BARBITURATES [...] CLOSELY RELATED COMPOUNDS PLEASE CALL THE LAB. Methadone Urine Laboratory test result Normal (a pplies to non-numeric results) [facility] ([facility]) ID Date Data Source [id number] 05/16/2021 01:24:00 PM EDT [facility] ([facility]) Name Value Range Interpretation Code Description Data Yadi rce(s) Supporting Document(s) Cobalamin (Vitamin B12) [Mass/volume] in Serum or Plasma 353 pg/mL 2 [id number] [facility]) .~.~<DG1.3.1>D51.9</DG1.3.1><DG1.3.1>D51.9</DG1.3.1><DG1.3.1>E55.9</DG1.3.1><DG1 .3.1 Is patient fasting? N~.~.~<DG1.3.1>D51.9</DG1.3.1><DG1.3.1>D51.9</DG1.3.1><DG1.3.1>E55.9</DG1.3. .~.~<DG1.3.1> D51.9</DG1.3.1><DG1.3.1>D51.9</DG1.3.1><DG1.3.1>E55.9</DG1.3.1><DG1.3.1 .~.~<DG1.3.1>D51.9</DG1.3.1><DG1.3.1>D51.9</DG1.3.1><DG1.3.1>E55.9</DG1.3.1><DG1 .3.1 .~.~<DG1.3.1>D51.9</DG1.3.1><DG1.3.1> D51.9</DG1.3.1><DG1.3.1>E55.9</DG1.3.1><DG1.3.1 ID Date Data Source [id number] 05/16/2021 01:24:00 PM EDT [facility] ([facility]) Name Value Range Interpretation Code Description Data Yadi rce(s) Supporting Document(s) CBC W/Automated Diff Laboratory test result [facility] ([facility]) COMPLETE BLOOD COUNT WBC 12.6 10^3/uL 4.2-11.0 Above high normal [facility] ([facility]) .~.~<DG1.3.1>D51.9</DG1.3.1><DG1.3.1>D51.9</DG1.3.1><DG1.3.1>E55.9</DG1.3.1><DG1 .3.1 Is patient fasting? N~.~.~<DG1.3.1>D51.9</DG1.3.1><DG1.3.1>D51.9</DG1.3.1><DG1.3.1>E55.9</DG1.3. .~.~<DG1.3.1> D51.9</DG1.3.1><DG1.3.1>D51.9</DG1.3.1><DG1.3.1>E55.9</DG1.3.1><DG1.3.1 .~.~<DG1.3.1>D51.9</DG1.3.1><DG1.3.1>D51.9</DG1.3.1><DG1.3.1>E55.9</DG1.3.1><DG1 .3.1 .~.~<DG1.3.1>D51.9</DG1.3.1><DG1.3.1> D51.9</DG1.3.1><DG1.3.1>E55.9</DG1.3.1><DG1.3.1 RBC 4.44 10^6/uL 4.20-5.40 [facility]) .~.~<DG1.3.1>D51.9</DG1.3.1><DG1.3.1>D51.9</DG1.3.1><DG1.3.1>E55.9</DG1.3.1><DG1 .3.1 Is patient fasting? N~.~.~<DG1.3.1>D51.9</DG1.3.1><DG1.3.1>D51.9</DG1.3.1><DG1.3.1>E55.9</DG1.3. .~.~<DG1.3.1> D51.9</DG1.3.1><DG1.3.1>D51.9</DG1.3.1><DG1.3.1>E55.9</DG1.3.1><DG1.3.1 .~.~<DG1.3.1>D51.9</DG1.3.1><DG1.3.1>D51.9</DG1.3.1><DG1.3.1>E55.9</DG1.3.1><DG1 .3.1 .~.~<DG1.3.1>D51.9</DG1.3.1><DG1.3.1> D51.9</DG1.3.1><DG1.3.1>E55.9</DG1.3.1><DG1.3.1 Hemoglobin 14.0 g/dL 12.0-16.0 [facility] ([facility]) .~.~<DG1.3.1>D51.9</DG1.3.1><DG1.3.1>D51.9</DG1.3.1><DG1.3.1>E55.9</DG1.3.1><DG1 .3.1 Is patient fasting? N~.~.~<DG1.3.1>D51.9</DG1.3.1><DG1.3.1>D51.9</DG1.3.1><DG1.3.1>E55.9</DG1.3. .~.~<DG1.3.1> D51.9</DG1.3.1><DG1.3.1>D51.9</DG1.3.1><DG1.3.1>E55.9</DG1.3.1><DG1.3.1 .~.~<DG1.3.1>D51.9</DG1.3.1><DG1.3.1>D51.9</DG1.3.1><DG1.3.1>E55.9</DG1.3.1><DG1 .3.1 .~.~<DG1.3.1>D51.9</DG1.3.1><DG1.3.1> D51.9</DG1.3.1><DG1.3.1>E55.9</DG1.3.1><DG1.3.1 Hematocrit 41.6 % 37.0-47.0 [facility] ([facility]) .~.~<DG1.3.1>D51.9</DG1.3.1><DG1.3.1>D51.9</DG1.3.1><DG1.3.1>E55.9</DG1.3.1><DG1 .3.1 Is patient fasting? N~.~.~<DG1.3.1>D51.9</DG1.3.1><DG1.3.1>D51.9</DG1.3.1><DG1.3.1>E55.9</DG1.3. .~.~<DG1.3.1> D51.9</DG1.3.1><DG1.3.1>D51.9</DG1.3.1><DG1.3.1>E55.9</DG1.3.1><DG1.3.1 .~.~<DG1.3.1>D51.9</DG1.3.1><DG1.3.1>D51.9</DG1.3.1><DG1.3.1>E55.9</DG1.3.1><DG1 .3.1 .~.~<DG1.3.1>D51.9</DG1.3.1><DG1.3.1> D51.9</DG1.3.1><DG1.3.1>E55.9</DG1.3.1><DG1.3.1 MCV 93.7 fL 81.0-101 [facility] ([facility]) .~.~<DG1.3.1>D51.9</DG1.3.1><DG1.3.1>D51.9</DG1.3.1><DG1.3.1>E55.9</DG1.3.1><DG1 .3.1 Is patient fasting? N~.~.~<DG1.3.1>D51.9</DG1.3.1><DG1.3.1>D51.9</DG1.3.1><DG1.3.1>E55.9</DG1.3. .~.~<DG1.3.1> D51.9</DG1.3.1><DG1.3.1>D51.9</DG1.3.1><DG1.3.1>E55.9</DG1.3.1><DG1.3.1 .~.~<DG1.3.1>D51.9</DG1.3.1><DG1.3.1>D51.9</DG1.3.1><DG1.3.1>E55.9</DG1.3.1><DG1 .3.1 .~.~<DG1.3.1>D51.9</DG1.3.1><DG1.3.1> D51.9</DG1.3.1><DG1.3.1>E55.9</DG1.3.1><DG1.3.1 MCH 31.5 pg 27.0-34.0 [facility] ([facility]) .~.~<DG1.3.1>D51.9</DG1.3.1><DG1.3.1>D51.9</DG1.3.1><DG1.3.1>E55.9</DG1.3.1><DG1 .3.1 Is patient fasting? N~.~.~<DG1.3.1>D51.9</DG1.3.1><DG1.3.1>D51.9</DG1.3.1><DG1.3.1>E55.9</DG1.3. .~.~<DG1.3.1> D51.9</DG1.3.1><DG1.3.1>D51.9</DG1.3.1><DG1.3.1>E55.9</DG1.3.1><DG1.3.1 .~.~<DG1.3.1>D51.9</DG1.3.1><DG1.3.1>D51.9</DG1.3.1><DG1.3.1>E55.9</DG1.3.1><DG1 .3.1 .~.~<DG1.3.1>D51.9</DG1.3.1><DG1.3.1> D51.9</DG1.3.1><DG1.3.1>E55.9</DG1.3.1><DG1.3.1 MCHC 33.7 g/dL 31.0-36.0 [facility] ([facility]) .~.~<DG1.3.1>D51.9</DG1.3.1><DG1.3.1>D51.9</DG1.3.1><DG1.3.1>E55.9</DG1.3.1><DG1 .3.1 Is patient fasting? N~.~.~<DG1.3.1>D51.9</DG1.3.1><DG1.3.1>D51.9</DG1.3.1><DG1.3.1>E55.9</DG1.3. .~.~<DG1.3.1> D51.9</DG1.3.1><DG1.3.1>D51.9</DG1.3.1><DG1.3.1>E55.9</DG1.3.1><DG1.3.1 .~.~<DG1.3.1>D51.9</DG1.3.1><DG1.3.1>D51.9</DG1.3.1><DG1.3.1>E55.9</DG1.3.1><DG1 .3.1 .~.~<DG1.3.1>D51.9</DG1.3.1><DG1.3.1> D51.9</DG1.3.1><DG1.3.1>E55.9</DG1.3.1><DG1.3.1 RDW 13.9 % 11.5-14.5 [facility] ([facility]) .~.~<DG1.3.1>D51.9</DG1.3.1><DG1.3.1>D51.9</DG1.3.1><DG1.3.1>E55.9</DG1.3.1><DG1 .3.1 Is patient fasting? N~.~.~<DG1.3.1>D51.9</DG1.3.1><DG1.3.1>D51.9</DG1.3.1><DG1.3.1>E55.9</DG1.3. .~.~<DG1.3.1> D51.9</DG1.3.1><DG1.3.1>D51.9</DG1.3.1><DG1.3.1>E55.9</DG1.3.1><DG1.3.1 .~.~<DG1.3.1>D51.9</DG1.3.1><DG1.3.1>D51.9</DG1.3.1><DG1.3.1>E55.9</DG1.3.1><DG1 .3.1 .~.~<DG1.3.1>D51.9</DG1.3.1><DG1.3.1> D51.9</DG1.3.1><DG1.3.1>E55.9</DG1.3.1><DG1.3.1 Platelets 210 10^3/uL 150-450 [facility] ([facility]) .~.~<DG1.3.1>D51.9</DG1.3.1><DG1.3.1>D51.9</DG1.3.1><DG1.3.1>E55.9</DG1.3.1><DG1 .3.1 Is patient fasting? N~.~.~<DG1.3.1>D51.9</DG1.3.1><DG1.3.1>D51.9</DG1.3.1><DG1.3.1>E55.9</DG1.3. .~.~<DG1.3.1> D51.9</DG1.3.1><DG1.3.1>D51.9</DG1.3.1><DG1.3.1>E55.9</DG1.3.1><DG1.3.1 .~.~<DG1.3.1>D51.9</DG1.3.1><DG1.3.1>D51.9</DG1.3.1><DG1.3.1>E55.9</DG1.3.1><DG1 .3.1 .~.~<DG1.3.1>D51.9</DG1.3.1><DG1.3.1> D51.9</DG1.3.1><DG1.3.1>E55.9</DG1.3.1><DG1.3.1 MPV 9.1 fL 7.4-10.4 [facility] ([facility]) .~.~<DG1.3.1>D51.9</DG1.3.1><DG1.3.1>D51.9</DG1.3.1><DG1.3.1>E55.9</DG1.3.1><DG1 .3.1 Is patient fasting? N~.~.~<DG1.3.1>D51.9</DG1.3.1><DG1.3.1>D51.9</DG1.3.1><DG1.3.1>E55.9</DG1.3. .~.~<DG1.3.1> D51.9</DG1.3.1><DG1.3.1>D51.9</DG1.3.1><DG1.3.1>E55.9</DG1.3.1><DG1.3.1 .~.~<DG1.3.1>D51.9</DG1.3.1><DG1.3.1>D51.9</DG1.3.1><DG1.3.1>E55.9</DG1.3.1><DG1 .3.1 .~.~<DG1.3.1>D51.9</DG1.3.1><DG1.3.1> D51.9</DG1.3.1><DG1.3.1>E55.9</DG1.3.1><DG1.3.1 Neut 66.7 % 37.0-80.0 [facility] ([facility]) .~.~<DG1.3.1>D51.9</DG1.3.1><DG1.3.1>D51.9</DG1.3.1><DG1.3.1>E55.9</DG1.3.1><DG1 .3.1 Is patient fasting? N~.~.~<DG1.3.1>D51.9</DG1.3.1><DG1.3.1>D51.9</DG1.3.1><DG1.3.1>E55.9</DG1.3. .~.~<DG1.3.1> D51.9</DG1.3.1><DG1.3.1>D51.9</DG1.3.1><DG1.3.1>E55.9</DG1.3.1><DG1.3.1 .~.~<DG1.3.1>D51.9</DG1.3.1><DG1.3.1>D51.9</DG1.3.1><DG1.3.1>E55.9</DG1.3.1><DG1 .3.1 .~.~<DG1.3.1>D51.9</DG1.3.1><DG1.3.1> D51.9</DG1.3.1><DG1.3.1>E55.9</DG1.3.1><DG1.3.1 Lymph 24.8 % 25.0-40.0 Below low normal [facility] ( [facility]) .~.~<DG1.3.1>D51.9</DG1.3.1><DG1.3.1>D51.9</DG1.3.1><DG1.3.1>E55.9</DG1.3.1><DG1 .3.1 Is patient fasting? N~.~.~<DG1.3.1>D51.9</DG1.3.1><DG1.3.1>D51.9</DG1.3.1><DG1.3.1>E55.9</DG1.3. .~.~<DG1.3.1> D51.9</DG1.3.1><DG1.3.1>D51.9</DG1.3.1><DG1.3.1>E55.9</DG1.3.1><DG1.3.1 .~.~<DG1.3.1>D51.9</DG1.3.1><DG1.3.1>D51.9</DG1.3.1><DG1.3.1>E55.9</DG1.3.1><DG1 .3.1 .~.~<DG1.3.1>D51.9</DG1.3.1><DG1.3.1> D51.9</DG1.3.1><DG1.3.1>E55.9</DG1.3.1><DG1.3.1 [facility] 6.6 % 3.0-8.0 [facility] ([facility]) .~.~<DG1.3.1>D51.9</DG1.3.1><DG1.3.1>D51.9</DG1.3.1><DG1.3.1>E55.9</DG1.3.1><DG1 .3.1 Is patient fasting? N~.~.~<DG1.3.1>D51.9</DG1.3.1><DG1.3.1>D51.9</DG1.3.1><DG1.3.1>E55.9</DG1.3. .~.~<DG1.3.1> D51.9</DG1.3.1><DG1.3.1>D51.9</DG1.3.1><DG1.3.1>E55.9</DG1.3.1><DG1.3.1 .~.~<DG1.3.1>D51.9</DG1.3.1><DG1.3.1>D51.9</DG1.3.1><DG1.3.1>E55.9</DG1.3.1><DG1 .3.1 .~.~<DG1.3.1>D51.9</DG1.3.1><DG1.3.1> D51.9</DG1.3.1><DG1.3.1>E55.9</DG1.3.1><DG1.3.1 Eos 1.4 % 0.0-7.0 [facility] ([facility]) .~.~<DG1.3.1>D51.9</DG1.3.1><DG1.3.1>D51.9</DG1.3.1><DG1.3.1>E55.9</DG1.3.1><DG1 .3.1 Is patient fasting? N~.~.~<DG1.3.1>D51.9</DG1.3.1><DG1.3.1>D51.9</DG1.3.1><DG1.3.1>E55.9</DG1.3. .~.~<DG1.3.1> D51.9</DG1.3.1><DG1.3.1>D51.9</DG1.3.1><DG1.3.1>E55.9</DG1.3.1><DG1.3.1 .~.~<DG1.3.1>D51.9</DG1.3.1><DG1.3.1>D51.9</DG1.3.1><DG1.3.1>E55.9</DG1.3.1><DG1 .3.1 .~.~<DG1.3.1>D51.9</DG1.3.1><DG1.3.1> D51.9</DG1.3.1><DG1.3.1>E55.9</DG1.3.1><DG1.3.1 Baso 0.2 % 0.0-2.5 [facility] ([facility]) .~.~<DG1.3.1>D51.9</DG1.3.1><DG1.3.1>D51.9</DG1.3.1><DG1.3.1>E55.9</DG1.3.1><DG1 .3.1 Is patient fasting? N~.~.~<DG1.3.1>D51.9</DG1.3.1><DG1.3.1>D51.9</DG1.3.1><DG1.3.1>E55.9</DG1.3. .~.~<DG1.3.1> D51.9</DG1.3.1><DG1.3.1>D51.9</DG1.3.1><DG1.3.1>E55.9</DG1.3.1><DG1.3.1 .~.~<DG1.3.1>D51.9</DG1.3.1><DG1.3.1>D51.9</DG1.3.1><DG1.3.1>E55.9</DG1.3.1><DG1 .3.1 .~.~<DG1.3.1>D51.9</DG1.3.1><DG1.3.1> D51.9</DG1.3.1><DG1.3.1>E55.9</DG1.3.1><DG1.3.1 %NRBC 0.0 % 0.0-0.0 [facility] ([facility]) .~.~<DG1.3.1>D51.9</DG1.3.1><DG1.3.1>D51.9</DG1.3.1><DG1.3.1>E55.9</DG1.3.1><DG1 .3.1 Is patient fasting? N~.~.~<DG1.3.1>D51.9</DG1.3.1><DG1.3.1>D51.9</DG1.3.1><DG1.3.1>E55.9</DG1.3. .~.~<DG1.3.1> D51.9</DG1.3.1><DG1.3.1>D51.9</DG1.3.1><DG1.3.1>E55.9</DG1.3.1><DG1.3.1 .~.~<DG1.3.1>D51.9</DG1.3.1><DG1.3.1>D51.9</DG1.3.1><DG1.3.1>E55.9</DG1.3.1><DG1 .3.1 .~.~<DG1.3.1>D51.9</DG1.3.1><DG1.3.1> D51.9</DG1.3.1><DG1.3.1>E55.9</DG1.3.1><DG1.3.1 %Ig 0.3 % 0.0-0.0 Above high normal [facility] ([facility]) .~.~<DG1.3.1>D51.9</DG1.3.1><DG1.3.1>D51.9</DG1.3.1><DG1.3.1>E55.9</DG1.3.1><DG1 .3.1 Is patient fasting? N~.~.~<DG1.3.1>D51.9</DG1.3.1><DG1.3.1>D51.9</DG1.3.1><DG1.3.1>E55.9</DG1.3. .~.~<DG1.3.1> D51.9</DG1.3.1><DG1.3.1>D51.9</DG1.3.1><DG1.3.1>E55.9</DG1.3.1><DG1.3.1 .~.~<DG1.3.1>D51.9</DG1.3.1><DG1.3.1>D51.9</DG1.3.1><DG1.3.1>E55.9</DG1.3.1><DG1 .3.1 .~.~<DG1.3.1>D51.9</DG1.3.1><DG1.3.1> D51.9</DG1.3.1><DG1.3.1>E55.9</DG1.3.1><DG1.3.1 #Neut 8.36 10^3/uL 2.00-6.90 Above high normal [facility] ([facility]) .~.~<DG1.3.1>D51.9</DG1.3.1><DG1.3.1>D51.9</DG1.3.1><DG1.3.1>E55.9</DG1.3.1><DG1 .3.1 Is patient fasting? N~.~.~<DG1.3.1>D51.9</DG1.3.1><DG1.3.1>D51.9</DG1.3.1><DG1.3.1>E55.9</DG1.3. .~.~<DG1.3.1> D51.9</DG1.3.1><DG1.3.1>D51.9</DG1.3.1><DG1.3.1>E55.9</DG1.3.1><DG1.3.1 .~.~<DG1.3.1>D51.9</DG1.3.1><DG1.3.1>D51.9</DG1.3.1><DG1.3.1>E55.9</DG1.3.1><DG1 .3.1 .~.~<DG1.3.1>D51.9</DG1.3.1><DG1.3.1> D51.9</DG1.3.1><DG1.3.1>E55.9</DG1.3.1><DG1.3.1 #Lymph 3.12 10^3/uL 0.60-3.40 [facility] ([facility]) .~.~<DG1.3.1>D51.9</DG1.3.1><DG1.3.1>D51.9</DG1.3.1><DG1.3.1>E55.9</DG1.3.1><DG1 .3.1 Is patient fasting? N~.~.~<DG1.3.1>D51.9</DG1.3.1><DG1.3.1>D51.9</DG1.3.1><DG1.3.1>E55.9</DG1.3. .~.~<DG1.3.1> D51.9</DG1.3.1><DG1.3.1>D51.9</DG1.3.1><DG1.3.1>E55.9</DG1.3.1><DG1.3.1 .~.~<DG1.3.1>D51.9</DG1.3.1><DG1.3.1>D51.9</DG1.3.1><DG1.3.1>E55.9</DG1.3.1><DG1 .3.1 .~.~<DG1.3.1>D51.9</DG1.3.1><DG1.3.1> D51.9</DG1.3.1><DG1.3.1>E55.9</DG1.3.1><DG1.3.1 #[facility] 0.83 10^3/uL 0.00-0.90 [facility] ([facility]) .~.~<DG1.3.1>D51.9</DG1.3.1><DG1.3.1>D51.9</DG1.3.1><DG1.3.1>E55.9</DG1.3.1><DG1 .3.1 Is patient fasting? N~.~.~<DG1.3.1>D51.9</DG1.3.1><DG1.3.1>D51.9</DG1.3.1><DG1.3.1>E55.9</DG1.3. .~.~<DG1.3.1> D51.9</DG1.3.1><DG1.3.1>D51.9</DG1.3.1><DG1.3.1>E55.9</DG1.3.1><DG1.3.1 .~.~<DG1.3.1>D51.9</DG1.3.1><DG1.3.1>D51.9</DG1.3.1><DG1.3.1>E55.9</DG1.3.1><DG1 .3.1 .~.~<DG1.3.1>D51.9</DG1.3.1><DG1.3.1> D51.9</DG1.3.1><DG1.3.1>E55.9</DG1.3.1><DG1.3.1 #Eos 0.18 10^3/uL 0.00-0.70 [facility] ([facility]) .~.~<DG1.3.1>D51.9</DG1.3.1><DG1.3.1>D51.9</DG1.3.1><DG1.3.1>E55.9</DG1.3.1><DG1 .3.1 Is patient fasting? N~.~.~<DG1.3.1>D51.9</DG1.3.1><DG1.3.1>D51.9</DG1.3.1><DG1.3.1>E55.9</DG1.3. .~.~<DG1.3.1> D51.9</DG1.3.1><DG1.3.1>D51.9</DG1.3.1><DG1.3.1>E55.9</DG1.3.1><DG1.3.1 .~.~<DG1.3.1>D51.9</DG1.3.1><DG1.3.1>D51.9</DG1.3.1><DG1.3.1>E55.9</DG1.3.1><DG1 .3.1 .~.~<DG1.3.1>D51.9</DG1.3.1><DG1.3.1> D51.9</DG1.3.1><DG1.3.1>E55.9</DG1.3.1><DG1.3.1 #Baso 0.03 10^3/uL 0.00-0.20 [facility] ([facility]) .~.~<DG1.3.1>D51.9</DG1.3.1><DG1.3.1>D51.9</DG1.3.1><DG1.3.1>E55.9</DG1.3.1><DG1 .3.1 Is patient fasting? N~.~.~<DG1.3.1>D51.9</DG1.3.1><DG1.3.1>D51.9</DG1.3.1><DG1.3.1>E55.9</DG1.3. .~.~<DG1.3.1> D51.9</DG1.3.1><DG1.3.1>D51.9</DG1.3.1><DG1.3.1>E55.9</DG1.3.1><DG1.3.1 .~.~<DG1.3.1>D51.9</DG1.3.1><DG1.3.1>D51.9</DG1.3.1><DG1.3.1>E55.9</DG1.3.1><DG1 .3.1 .~.~<DG1.3.1>D51.9</DG1.3.1><DG1.3.1> D51.9</DG1.3.1><DG1.3.1>E55.9</DG1.3.1><DG1.3.1 #Ig 0.04 10^3/uL 0.00-0.10 [facility] ([facility]) .~.~<DG1.3.1>D51.9</DG1.3.1><DG1.3.1>D51.9</DG1.3.1><DG1.3.1>E55.9</DG1.3.1><DG1 .3.1 Is patient fasting? N~.~.~<DG1.3.1>D51.9</DG1.3.1><DG1.3.1>D51.9</DG1.3.1><DG1.3.1>E55.9</DG1.3. .~.~<DG1.3.1> D51.9</DG1.3.1><DG1.3.1>D51.9</DG1.3.1><DG1.3.1>E55.9</DG1.3.1><DG1.3.1 .~.~<DG1.3.1>D51.9</DG1.3.1><DG1.3.1>D51.9</DG1.3.1><DG1.3.1>E55.9</DG1.3.1><DG1 .3.1 .~.~<DG1.3.1>D51.9</DG1.3.1><DG1.3.1> D51.9</DG1.3.1><DG1.3.1>E55.9</DG1.3.1><DG1.3.1 #NRBC 0.00 10^3/uL 0.00-0.00 [facility] ([facility]) .~.~<DG1.3.1>D51.9</DG1.3.1><DG1.3.1>D51.9</DG1.3.1><DG1.3.1>E55.9</DG1.3.1><DG1 .3.1 Is patient fasting? N~.~.~<DG1.3.1>D51.9</DG1.3.1><DG1.3.1>D51.9</DG1.3.1><DG1.3.1>E55.9</DG1.3. .~.~<DG1.3.1> D51.9</DG1.3.1><DG1.3.1>D51.9</DG1.3.1><DG1.3.1>E55.9</DG1.3.1><DG1.3.1 .~.~<DG1.3.1>D51.9</DG1.3.1><DG1.3.1>D51.9</DG1.3.1><DG1.3.1>E55.9</DG1.3.1><DG1 .3.1 .~.~<DG1.3.1>D51.9</DG1.3.1><DG1.3.1> D51.9</DG1.3.1><DG1.3.1>E55.9</DG1.3.1><DG1.3.1 Manual Diff Laboratory test result Angela [facility]BA ([facility]) .~.~<DG1.3.1>D51.9</DG1.3.1><DG1.3.1>D51.9</DG1.3.1><DG1.3.1>E55.9</DG1.3.1><DG1 .3.1 Is patient fasting? N~.~.~<DG1.3.1>D51.9</DG1.3.1><DG1.3.1>D51.9</DG1.3.1><DG1.3.1>E55.9</DG1.3. .~.~<DG1.3.1> D51.9</DG1.3.1><DG1.3.1>D51.9</DG1.3.1><DG1.3.1>E55.9</DG1.3.1><DG1.3.1 .~.~<DG1.3.1>D51.9</DG1.3.1><DG1.3.1>D51.9</DG1.3.1><DG1.3.1>E55.9</DG1.3.1><DG1 .3.1 .~.~<DG1.3.1>D51.9</DG1.3.1><DG1.3.1> D51.9</DG1.3.1><DG1.3.1>E55.9</DG1.3.1><DG1.3.1 RBC Morph Laboratory test result [facility] ([facility]) .~.~<DG1.3.1>D51.9</DG1.3.1><DG1.3.1>D51.9</DG1.3.1><DG1.3.1>E55.9</DG1.3.1><DG1 .3.1 Is patient fasting? N~.~.~<DG1.3.1>D51.9</DG1.3.1><DG1.3.1>D51.9</DG1.3.1><DG1.3.1>E55.9</DG1.3. .~.~<DG1.3.1> D51.9</DG1.3.1><DG1.3.1>D51.9</DG1.3.1><DG1.3.1>E55.9</DG1.3.1><DG1.3.1 .~.~<DG1.3.1>D51.9</DG1.3.1><DG1.3.1>D51.9</DG1.3.1><DG1.3.1>E55.9</DG1.3.1><DG1 .3.1 .~.~<DG1.3.1>D51.9</DG1.3.1><DG1.3.1> D51.9</DG1.3.1><DG1.3.1>E55.9</DG1.3.1><DG1.3.1 ID Date Data Source [id number] 05/16/2021 01:24:00 PM EDT [facility] ([facility]) Name Value Range Interpretation Code Description Data Yadi rce(s) Supporting Document(s) Calcidiol [Mass/volume] in Serum or Plasma 23 ng/mL [facility] ([facility]) <content>VITAMIN-D(25HYDROXY)</content>< br/><content>Deficiency: <=20 ng/ml</content>
<content>Insufficiency: 21-29 ng/ml</content>
<content>Preferred level: => 30 ng/ml</content>
<conten t></content> ID Date Data Source [id number] 05/16/2021 01:24:00 PM EDT [facility] ([facility]) Name Value Range Interpretation Code Description Data Yadi rce(s) Supporting Document(s) Uibc 215 ug/dL 112-347 [facility] ([facility]) .~.~<DG1.3.1>D51.9</DG1.3.1><DG1.3.1>D51.9</DG1.3.1><DG1.3.1>E55.9</DG1.3.1><DG1 .3.1 Is patient fasting? N~.~.~<DG1.3.1>D51.9</DG1.3.1><DG1.3.1>D51.9</DG1.3.1><DG1.3.1>E55.9</DG1.3. .~.~<DG1.3.1> D51.9</DG1.3.1><DG1.3.1>D51.9</DG1.3.1><DG1.3.1>E55.9</DG1.3.1><DG1.3.1 .~.~<DG1.3.1>D51.9</DG1.3.1><DG1.3.1>D51.9</DG1.3.1><DG1.3.1>E55.9</DG1.3.1><DG1 .3.1 .~.~<DG1.3.1>D51.9</DG1.3.1><DG1.3.1> D51.9</DG1.3.1><DG1.3.1>E55.9</DG1.3.1><DG1.3.1 Iron 45 ug/dL 42-135 [facility] ([facility]) .~.~<DG1.3.1>D51.9</DG1.3.1><DG1.3.1>D51.9</DG1.3.1><DG1.3.1>E55.9</DG1.3.1><DG1 .3.1 Is patient fasting? N~.~.~<DG1.3.1>D51.9</DG1.3.1><DG1.3.1>D51.9</DG1.3.1><DG1.3.1>E55.9</DG1.3. .~.~<DG1.3.1> D51.9</DG1.3.1><DG1.3.1>D51.9</DG1.3.1><DG1.3.1>E55.9</DG1.3.1><DG1.3.1 .~.~<DG1.3.1>D51.9</DG1.3.1><DG1.3.1>D51.9</DG1.3.1><DG1.3.1>E55.9</DG1.3.1><DG1 .3.1 .~.~<DG1.3.1>D51.9</DG1.3.1><DG1.3.1> D51.9</DG1.3.1><DG1.3.1>E55.9</DG1.3.1><DG1.3.1 Tibc 260 ug/dL 250-450 [facility] ([facility]) .~.~<DG1.3.1>D51.9</DG1.3.1><DG1.3.1>D51.9</DG1.3.1><DG1.3.1>E55.9</DG1.3.1><DG1 .3.1 Is patient fasting? N~.~.~<DG1.3.1>D51.9</DG1.3.1><DG1.3.1>D51.9</DG1.3.1><DG1.3.1>E55.9</DG1.3. .~.~<DG1.3.1> D51.9</DG1.3.1><DG1.3.1>D51.9</DG1.3.1><DG1.3.1>E55.9</DG1.3.1><DG1.3.1 .~.~<DG1.3.1>D51.9</DG1.3.1><DG1.3.1>D51.9</DG1.3.1><DG1.3.1>E55.9</DG1.3.1><DG1 .3.1 .~.~<DG1.3.1>D51.9</DG1.3.1><DG1.3.1> D51.9</DG1.3.1><DG1.3.1>E55.9</DG1.3.1><DG1.3.1 Iron Sat 17 % [facility] ([facility]) .~.~<DG1.3.1>D51.9</DG1.3.1><DG1.3.1>D51.9</DG1.3.1><DG1.3.1>E55.9</DG1.3.1><DG1 .3.1 Is patient fasting? N~.~.~<DG1.3.1>D51.9</DG1.3.1><DG1.3.1>D51.9</DG1.3.1><DG1.3.1>E55.9</DG1.3. .~.~<DG1.3.1> D51.9</DG1.3.1><DG1.3.1>D51.9</DG1.3.1><DG1.3.1>E55.9</DG1.3.1><DG1.3.1 .~.~<DG1.3.1>D51.9</DG1.3.1><DG1.3.1>D51.9</DG1.3.1><DG1.3.1>E55.9</DG1.3.1><DG1 .3.1 .~.~<DG1.3.1>D51.9</DG1.3.1><DG1.3.1> D51.9</DG1.3.1><DG1.3.1>E55.9</DG1.3.1><DG1.3.1 ID Date Data Source [id number] 05/16/2021 01:24:00 PM EDT [facility] ([facility]) Name Value Range Interpretation Code Description Data Yadi rce(s) Supporting Document(s) Ferritin [Mass/volume] in Serum or Plasma 47.6 ng/mL 3.0-105 [facility] ([facility]) .~.~<DG1.3.1>D51.9</DG1.3.1><DG1.3.1>D51.9</DG1.3.1><DG1.3.1>E55.9</DG1.3.1><DG1 .3.1 Is patient fasting? N~.~.~<DG1.3.1>D51.9</DG1.3.1><DG1.3.1>D51.9</DG1.3.1><DG1.3.1>E55.9</DG1.3. .~.~<DG1.3.1> D51.9</DG1.3.1><DG1.3.1>D51.9</DG1.3.1><DG1.3.1>E55.9</DG1.3.1><DG1.3.1 .~.~<DG1.3.1>D51.9</DG1.3.1><DG1.3.1>D51.9</DG1.3.1><DG1.3.1>E55.9</DG1.3.1><DG1 .3.1 .~.~<DG1.3.1>D51.9</DG1.3.1><DG1.3.1> D51.9</DG1.3.1><DG1.3.1>E55.9</DG1.3.1><DG1.3.1 ID Date Data Source [id number] 05/16/2021 01:24:00 PM EDT [facility] ([facility]) Name Value Range Interpretation Code Description Data Yadi rce(s) Supporting Document(s) Comprehensive [employer] Laboratory test result [facility] ([facility]) .~.~<DG1.3.1>D51.9</DG1.3.1><DG1.3.1>D51.9</DG1.3.1><DG1.3.1>E55.9</DG1.3.1><DG1 .3.1 Is patient fasting? N~.~.~<DG1.3.1>D51.9</DG1.3.1><DG1.3.1>D51.9</DG1.3.1><DG1.3.1>E55.9</DG1.3. .~.~<DG1.3.1> D51.9</DG1.3.1><DG1.3.1>D51.9</DG1.3.1><DG1.3.1>E55.9</DG1.3.1><DG1.3.1 .~.~<DG1.3.1>D51.9</DG1.3.1><DG1.3.1>D51.9</DG1.3.1><DG1.3.1>E55.9</DG1.3.1><DG1 .3.1 .~.~<DG1.3.1>D51.9</DG1.3.1><DG1.3.1> D51.9</DG1.3.1><DG1.3.1>E55.9</DG1.3.1><DG1.3.1 Sodium 138 meq/L 134-153 [facility] ([facility]) .~.~<DG1.3.1>D51.9</DG1.3.1><DG1.3.1>D51.9</DG1.3.1><DG1.3.1>E55.9</DG1.3.1><DG1 .3.1 Is patient fasting? N~.~.~<DG1.3.1>D51.9</DG1.3.1><DG1.3.1>D51.9</DG1.3.1><DG1.3.1>E55.9</DG1.3. .~.~<DG1.3.1> D51.9</DG1.3.1><DG1.3.1>D51.9</DG1.3.1><DG1.3.1>E55.9</DG1.3.1><DG1.3.1 .~.~<DG1.3.1>D51.9</DG1.3.1><DG1.3.1>D51.9</DG1.3.1><DG1.3.1>E55.9</DG1.3.1><DG1 .3.1 .~.~<DG1.3.1>D51.9</DG1.3.1><DG1.3.1> D51.9</DG1.3.1><DG1.3.1>E55.9</DG1.3.1><DG1.3.1 Potassium 4.0 meq/L 3.6-5.0 [facility] ([facility]) .~.~<DG1.3.1>D51.9</DG1.3.1><DG1.3.1>D51.9</DG1.3.1><DG1.3.1>E55.9</DG1.3.1><DG1 .3.1 Is patient fasting? N~.~.~<DG1.3.1>D51.9</DG1.3.1><DG1.3.1>D51.9</DG1.3.1><DG1.3.1>E55.9</DG1.3. .~.~<DG1.3.1> D51.9</DG1.3.1><DG1.3.1>D51.9</DG1.3.1><DG1.3.1>E55.9</DG1.3.1><DG1.3.1 .~.~<DG1.3.1>D51.9</DG1.3.1><DG1.3.1>D51.9</DG1.3.1><DG1.3.1>E55.9</DG1.3.1><DG1 .3.1 .~.~<DG1.3.1>D51.9</DG1.3.1><DG1.3.1> D51.9</DG1.3.1><DG1.3.1>E55.9</DG1.3.1><DG1.3.1 Chloride 104 meq/L 98-107 [facility] ([facility]) .~.~<DG1.3.1>D51.9</DG1.3.1><DG1.3.1>D51.9</DG1.3.1><DG1.3.1>E55.9</DG1.3.1><DG1 .3.1 Is patient fasting? N~.~.~<DG1.3.1>D51.9</DG1.3.1><DG1.3.1>D51.9</DG1.3.1><DG1.3.1>E55.9</DG1.3. .~.~<DG1.3.1> D51.9</DG1.3.1><DG1.3.1>D51.9</DG1.3.1><DG1.3.1>E55.9</DG1.3.1><DG1.3.1 .~.~<DG1.3.1>D51.9</DG1.3.1><DG1.3.1>D51.9</DG1.3.1><DG1.3.1>E55.9</DG1.3.1><DG1 .3.1 .~.~<DG1.3.1>D51.9</DG1.3.1><DG1.3.1> D51.9</DG1.3.1><DG1.3.1>E55.9</DG1.3.1><DG1.3.1 Glucose 100 mg/dL 70-99 Above high normal [facility] ([facility]) .~.~<DG1.3.1>D51.9</DG1.3.1><DG1.3.1>D51.9</DG1.3.1><DG1.3.1>E55.9</DG1.3.1><DG1 .3.1 Is patient fasting? N~.~.~<DG1.3.1>D51.9</DG1.3.1><DG1.3.1>D51.9</DG1.3.1><DG1.3.1>E55.9</DG1.3. .~.~<DG1.3.1> D51.9</DG1.3.1><DG1.3.1>D51.9</DG1.3.1><DG1.3.1>E55.9</DG1.3.1><DG1.3.1 .~.~<DG1.3.1>D51.9</DG1.3.1><DG1.3.1>D51.9</DG1.3.1><DG1.3.1>E55.9</DG1.3.1><DG1 .3.1 .~.~<DG1.3.1>D51.9</DG1.3.1><DG1.3.1> D51.9</DG1.3.1><DG1.3.1>E55.9</DG1.3.1><DG1.3.1 Co2 23 meq/L 22-30 [facility] ([facility]) .~.~<DG1.3.1>D51.9</DG1.3.1><DG1.3.1>D51.9</DG1.3.1><DG1.3.1>E55.9</DG1.3.1><DG1 .3.1 Is patient fasting? N~.~.~<DG1.3.1>D51.9</DG1.3.1><DG1.3.1>D51.9</DG1.3.1><DG1.3.1>E55.9</DG1.3. .~.~<DG1.3.1> D51.9</DG1.3.1><DG1.3.1>D51.9</DG1.3.1><DG1.3.1>E55.9</DG1.3.1><DG1.3.1 .~.~<DG1.3.1>D51.9</DG1.3.1><DG1.3.1>D51.9</DG1.3.1><DG1.3.1>E55.9</DG1.3.1><DG1 .3.1 .~.~<DG1.3.1>D51.9</DG1.3.1><DG1.3.1> D51.9</DG1.3.1><DG1.3.1>E55.9</DG1.3.1><DG1.3.1 BUN 12 mg/dL 7-21 [facility] ([facility]) .~.~<DG1.3.1>D51.9</DG1.3.1><DG1.3.1>D51.9</DG1.3.1><DG1.3.1>E55.9</DG1.3.1><DG1 .3.1 Is patient fasting? N~.~.~<DG1.3.1>D51.9</DG1.3.1><DG1.3.1>D51.9</DG1.3.1><DG1.3.1>E55.9</DG1.3. .~.~<DG1.3.1> D51.9</DG1.3.1><DG1.3.1>D51.9</DG1.3.1><DG1.3.1>E55.9</DG1.3.1><DG1.3.1 .~.~<DG1.3.1>D51.9</DG1.3.1><DG1.3.1>D51.9</DG1.3.1><DG1.3.1>E55.9</DG1.3.1><DG1 .3.1 .~.~<DG1.3.1>D51.9</DG1.3.1><DG1.3.1> D51.9</DG1.3.1><DG1.3.1>E55.9</DG1.3.1><DG1.3.1 Creatinine 0.6 mg/dL 0.7-1.5 Below low normal [facility] ( [facility]) .~.~<DG1.3.1>D51.9</DG1.3.1><DG1.3.1>D51.9</DG1.3.1><DG1.3.1>E55.9</DG1.3.1><DG1 .3.1 Is patient fasting? N~.~.~<DG1.3.1>D51.9</DG1.3.1><DG1.3.1>D51.9</DG1.3.1><DG1.3.1>E55.9</DG1.3. .~.~<DG1.3.1> D51.9</DG1.3.1><DG1.3.1>D51.9</DG1.3.1><DG1.3.1>E55.9</DG1.3.1><DG1.3.1 .~.~<DG1.3.1>D51.9</DG1.3.1><DG1.3.1>D51.9</DG1.3.1><DG1.3.1>E55.9</DG1.3.1><DG1 .3.1 .~.~<DG1.3.1>D51.9</DG1.3.1><DG1.3.1> D51.9</DG1.3.1><DG1.3.1>E55.9</DG1.3.1><DG1.3.1 Total Protein 7.1 g/dL 6.3-8.2 [facility]) .~.~<DG1.3.1>D51.9</DG1.3.1><DG1.3.1>D51.9</DG1.3.1><DG1.3.1>E55.9</DG1.3.1><DG1 .3.1 Is patient fasting? N~.~.~<DG1.3.1>D51.9</DG1.3.1><DG1.3.1>D51.9</DG1.3.1><DG1.3.1>E55.9</DG1.3. .~.~<DG1.3.1> D51.9</DG1.3.1><DG1.3.1>D51.9</DG1.3.1><DG1.3.1>E55.9</DG1.3.1><DG1.3.1 .~.~<DG1.3.1>D51.9</DG1.3.1><DG1.3.1>D51.9</DG1.3.1><DG1.3.1>E55.9</DG1.3.1><DG1 .3.1 .~.~<DG1.3.1>D51.9</DG1.3.1><DG1.3.1> D51.9</DG1.3.1><DG1.3.1>E55.9</DG1.3.1><DG1.3.1 BUN/[place] 20 04-18 [facility] ([facility]) .~.~<DG1.3.1>D51.9</DG1.3.1><DG1.3.1>D51.9</DG1.3.1><DG1.3.1>E55.9</DG1.3.1><DG1 .3.1 Is patient fasting? N~.~.~<DG1.3.1>D51.9</DG1.3.1><DG1.3.1>D51.9</DG1.3.1><DG1.3.1>E55.9</DG1.3. .~.~<DG1.3.1> D51.9</DG1.3.1><DG1.3.1>D51.9</DG1.3.1><DG1.3.1>E55.9</DG1.3.1><DG1.3.1 .~.~<DG1.3.1>D51.9</DG1.3.1><DG1.3.1>D51.9</DG1.3.1><DG1.3.1>E55.9</DG1.3.1><DG1 .3.1 .~.~<DG1.3.1>D51.9</DG1.3.1><DG1.3.1> D51.9</DG1.3.1><DG1.3.1>E55.9</DG1.3.1><DG1.3.1 Albumin 4.8 g/dL 3.9-5.0 [facility] ([facility]) .~.~<DG1.3.1>D51.9</DG1.3.1><DG1.3.1>D51.9</DG1.3.1><DG1.3.1>E55.9</DG1.3.1><DG1 .3.1 Is patient fasting? N~.~.~<DG1.3.1>D51.9</DG1.3.1><DG1.3.1>D51.9</DG1.3.1><DG1.3.1>E55.9</DG1.3. .~.~<DG1.3.1> D51.9</DG1.3.1><DG1.3.1>D51.9</DG1.3.1><DG1.3.1>E55.9</DG1.3.1><DG1.3.1 .~.~<DG1.3.1>D51.9</DG1.3.1><DG1.3.1>D51.9</DG1.3.1><DG1.3.1>E55.9</DG1.3.1><DG1 .3.1 .~.~<DG1.3.1>D51.9</DG1.3.1><DG1.3.1> D51.9</DG1.3.1><DG1.3.1>E55.9</DG1.3.1><DG1.3.1 Globulin 2.3 GM/DL 2.4-3.2 Below low normal [facility] ( [facility]) .~.~<DG1.3.1>D51.9</DG1.3.1><DG1.3.1>D51.9</DG1.3.1><DG1.3.1>E55.9</DG1.3.1><DG1 .3.1 Is patient fasting? N~.~.~<DG1.3.1>D51.9</DG1.3.1><DG1.3.1>D51.9</DG1.3.1><DG1.3.1>E55.9</DG1.3. .~.~<DG1.3.1> D51.9</DG1.3.1><DG1.3.1>D51.9</DG1.3.1><DG1.3.1>E55.9</DG1.3.1><DG1.3.1 .~.~<DG1.3.1>D51.9</DG1.3.1><DG1.3.1>D51.9</DG1.3.1><DG1.3.1>E55.9</DG1.3.1><DG1 .3.1 .~.~<DG1.3.1>D51.9</DG1.3.1><DG1.3.1> D51.9</DG1.3.1><DG1.3.1>E55.9</DG1.3.1><DG1.3.1 A/G Ratio 2.1 0.8-2.0 Above high normal [facility] ([facility]) .~.~<DG1.3.1>D51.9</DG1.3.1><DG1.3.1>D51.9</DG1.3.1><DG1.3.1>E55.9</DG1.3.1><DG1 .3.1 Is patient fasting? N~.~.~<DG1.3.1>D51.9</DG1.3.1><DG1.3.1>D51.9</DG1.3.1><DG1.3.1>E55.9</DG1.3. .~.~<DG1.3.1> D51.9</DG1.3.1><DG1.3.1>D51.9</DG1.3.1><DG1.3.1>E55.9</DG1.3.1><DG1.3.1 .~.~<DG1.3.1>D51.9</DG1.3.1><DG1.3.1>D51.9</DG1.3.1><DG1.3.1>E55.9</DG1.3.1><DG1 .3.1 .~.~<DG1.3.1>D51.9</DG1.3.1><DG1.3.1> D51.9</DG1.3.1><DG1.3.1>E55.9</DG1.3.1><DG1.3.1 Calcium 9.6 mg/dL 8.4-10.2 [facility] ([facility]) .~.~<DG1.3.1>D51.9</DG1.3.1><DG1.3.1>D51.9</DG1.3.1><DG1.3.1>E55.9</DG1.3.1><DG1 .3.1 Is patient fasting? N~.~.~<DG1.3.1>D51.9</DG1.3.1><DG1.3.1>D51.9</DG1.3.1><DG1.3.1>E55.9</DG1.3. .~.~<DG1.3.1> D51.9</DG1.3.1><DG1.3.1>D51.9</DG1.3.1><DG1.3.1>E55.9</DG1.3.1><DG1.3.1 .~.~<DG1.3.1>D51.9</DG1.3.1><DG1.3.1>D51.9</DG1.3.1><DG1.3.1>E55.9</DG1.3.1><DG1 .3.1 .~.~<DG1.3.1>D51.9</DG1.3.1><DG1.3.1> D51.9</DG1.3.1><DG1.3.1>E55.9</DG1.3.1><DG1.3.1 Total Bili Laboratory test result 0.2-1.3 [facility] ([facility]) .~.~<DG1.3.1>D51.9</DG1.3.1><DG1.3.1>D51.9</DG1.3.1><DG1.3.1>E55.9</DG1.3.1><DG1 .3.1 Is patient fasting? N~.~.~<DG1.3.1>D51.9</DG1.3.1><DG1.3.1>D51.9</DG1.3.1><DG1.3.1>E55.9</DG1.3. .~.~<DG1.3.1> D51.9</DG1.3.1><DG1.3.1>D51.9</DG1.3.1><DG1.3.1>E55.9</DG1.3.1><DG1.3.1 .~.~<DG1.3.1>D51.9</DG1.3.1><DG1.3.1>D51.9</DG1.3.1><DG1.3.1>E55.9</DG1.3.1><DG1 .3.1 .~.~<DG1.3.1>D51.9</DG1.3.1><DG1.3.1> D51.9</DG1.3.1><DG1.3.1>E55.9</DG1.3.1><DG1.3.1 Alkaline Phos 75 U/L 38-126 [facility] ([facility]) .~.~<DG1.3.1>D51.9</DG1.3.1><DG1.3.1>D51.9</DG1.3.1><DG1.3.1>E55.9</DG1.3.1><DG1 .3.1 Is patient fasting? N~.~.~<DG1.3.1>D51.9</DG1.3.1><DG1.3.1>D51.9</DG1.3.1><DG1.3.1>E55.9</DG1.3. .~.~<DG1.3.1> D51.9</DG1.3.1><DG1.3.1>D51.9</DG1.3.1><DG1.3.1>E55.9</DG1.3.1><DG1.3.1 .~.~<DG1.3.1>D51.9</DG1.3.1><DG1.3.1>D51.9</DG1.3.1><DG1.3.1>E55.9</DG1.3.1><DG1 .3.1 .~.~<DG1.3.1>D51.9</DG1.3.1><DG1.3.1> D51.9</DG1.3.1><DG1.3.1>E55.9</DG1.3.1><DG1.3.1 Sgot/Ast 13 U/L 5-40 [facility] ([facility]) .~.~<DG1.3.1>D51.9</DG1.3.1><DG1.3.1>D51.9</DG1.3.1><DG1.3.1>E55.9</DG1.3.1><DG1 .3.1 Is patient fasting? N~.~.~<DG1.3.1>D51.9</DG1.3.1><DG1.3.1>D51.9</DG1.3.1><DG1.3.1>E55.9</DG1.3. .~.~<DG1.3.1> D51.9</DG1.3.1><DG1.3.1>D51.9</DG1.3.1><DG1.3.1>E55.9</DG1.3.1><DG1.3.1 .~.~<DG1.3.1>D51.9</DG1.3.1><DG1.3.1>D51.9</DG1.3.1><DG1.3.1>E55.9</DG1.3.1><DG1 .3.1 .~.~<DG1.3.1>D51.9</DG1.3.1><DG1.3.1> D51.9</DG1.3.1><DG1.3.1>E55.9</DG1.3.1><DG1.3.1 Anion Gap 11.0 mmol/L 8.0-16.0 [facility]) .~.~<DG1.3.1>D51.9</DG1.3.1><DG1.3.1>D51.9</DG1.3.1><DG1.3.1>E55.9</DG1.3.1><DG1 .3.1 Is patient fasting? N~.~.~<DG1.3.1>D51.9</DG1.3.1><DG1.3.1>D51.9</DG1.3.1><DG1.3.1>E55.9</DG1.3. .~.~<DG1.3.1> D51.9</DG1.3.1><DG1.3.1>D51.9</DG1.3.1><DG1.3.1>E55.9</DG1.3.1><DG1.3.1 .~.~<DG1.3.1>D51.9</DG1.3.1><DG1.3.1>D51.9</DG1.3.1><DG1.3.1>E55.9</DG1.3.1><DG1 .3.1 .~.~<DG1.3.1>D51.9</DG1.3.1><DG1.3.1> D51.9</DG1.3.1><DG1.3.1>E55.9</DG1.3.1><DG1.3.1 SGPT/Alt 11 U/L 7-56 [facility] ([facility]) .~.~<DG1.3.1>D51.9</DG1.3.1><DG1.3.1>D51.9</DG1.3.1><DG1.3.1>E55.9</DG1.3.1><DG1 .3.1 Is patient fasting? N~.~.~<DG1.3.1>D51.9</DG1.3.1><DG1.3.1>D51.9</DG1.3.1><DG1.3.1>E55.9</DG1.3. .~.~<DG1.3.1> D51.9</DG1.3.1><DG1.3.1>D51.9</DG1.3.1><DG1.3.1>E55.9</DG1.3.1><DG1.3.1 .~.~<DG1.3.1>D51.9</DG1.3.1><DG1.3.1>D51.9</DG1.3.1><DG1.3.1>E55.9</DG1.3.1><DG1 .3.1 .~.~<DG1.3.1>D51.9</DG1.3.1><DG1.3.1> D51.9</DG1.3.1><DG1.3.1>E55.9</DG1.3.1><DG1.3.1 Age 35 yrs [facility] ([facility]) .~.~<DG1.3.1>D51.9</DG1.3.1><DG1.3.1>D51.9</DG1.3.1><DG1.3.1>E55.9</DG1.3.1><DG1 .3.1 Is patient fasting? N~.~.~<DG1.3.1>D51.9</DG1.3.1><DG1.3.1>D51.9</DG1.3.1><DG1.3.1>E55.9</DG1.3. .~.~<DG1.3.1> D51.9</DG1.3.1><DG1.3.1>D51.9</DG1.3.1><DG1.3.1>E55.9</DG1.3.1><DG1.3.1 .~.~<DG1.3.1>D51.9</DG1.3.1><DG1.3.1>D51.9</DG1.3.1><DG1.3.1>E55.9</DG1.3.1><DG1 .3.1 .~.~<DG1.3.1>D51.9</DG1.3.1><DG1.3.1> D51.9</DG1.3.1><DG1.3.1>E55.9</DG1.3.1><DG1.3.1 Non-Aa GFR Laboratory test result [facility] ([facility]) .~.~<DG1.3.1>D51.9</DG1.3.1><DG1.3.1>D51.9</DG1.3.1><DG1.3.1>E55.9</DG1.3.1><DG1 .3.1 Is patient fasting? N~.~.~<DG1.3.1>D51.9</DG1.3.1><DG1.3.1>D51.9</DG1.3.1><DG1.3.1>E55.9</DG1.3. .~.~<DG1.3.1> D51.9</DG1.3.1><DG1.3.1>D51.9</DG1.3.1><DG1.3.1>E55.9</DG1.3.1><DG1.3.1 .~.~<DG1.3.1>D51.9</DG1.3.1><DG1.3.1>D51.9</DG1.3.1><DG1.3.1>E55.9</DG1.3.1><DG1 .3.1 .~.~<DG1.3.1>D51.9</DG1.3.1><DG1.3.1> D51.9</DG1.3.1><DG1.3.1>E55.9</DG1.3.1><DG1.3.1 Afr Amer GFR Laboratory test result [facility] ([facility]) .~.~<DG1.3.1>D51.9</DG1.3.1><DG1.3.1>D51.9</DG1.3.1><DG1.3.1>E55.9</DG1.3.1><DG1 .3.1 Is patient fasting? N~.~.~<DG1.3.1>D51.9</DG1.3.1><DG1.3.1>D51.9</DG1.3.1><DG1.3.1>E55.9</DG1.3. .~.~<DG1.3.1> D51.9</DG1.3.1><DG1.3.1>D51.9</DG1.3.1><DG1.3.1>E55.9</DG1.3.1><DG1.3.1 .~.~<DG1.3.1>D51.9</DG1.3.1><DG1.3.1>D51.9</DG1.3.1><DG1.3.1>E55.9</DG1.3.1><DG1 .3.1 .~.~<DG1.3.1>D51.9</DG1.3.1><DG1.3.1> D51.9</DG1.3.1><DG1.3.1>E55.9</DG1.3.1><DG1.3.1 ID Date Data Source [id number] 05/16/2021 02:27:00 PM EDT [facility] Name Value Range Interpretation Code Description Data Yadi rce(s) Supporting Document(s) Ferritin [Mass/volume] in Serum or Plasma 47.6 ng/mL 3.0 - 105 [facility] ID Date Data Source [id number] 05/16/2021 02:27:00 PM EDT [facility] Name Value Range Interpretation Code Description Data Yadi rce(s) Supporting Document(s) Calcidiol [Moles/volume] in Serum or Plasma 23 NG/ML [facility] VITAMIN-D(2 5HYDROXY) Deficiency: <=20 ng/ml Insufficiency: 21-29 ng/ml Preferred level: => 30 ng/ml ID Date Data Source [id number] 05/16/2021 02:27:[address] [facility] Value Range Interpretation Code Description Data Yadi rce(s) Supporting Document(s) Cobalamin (Vitamin B12) [Mass/volume] in Serum or Plasma 353 PG/ML 232 - 1245 [facility] ID Date Data Source [id number] 05/16/2021 02:08:00 PM EDT [facility] Name Value Range Interpretation Code Description Data [facility](s) Supporting Document(s) COMPREHENSIVE METABOLIC PANEL [facility] COMPREHENSIVE METABOLIC PANEL Sodium [Moles/volume] in Serum or Plasma 138 mEq/L 134 - 153 [facility] Potassium [Moles/volume] in Serum or Plasma 4.0 mEq/L 3.6 - 5.0 [facility] Chloride [Moles/volume] in Serum or Plasma 104 mEq/L 98 - 107 [facility] Carbon dioxide, total [Moles/volume] in Serum or Plasma 23 MEQ/L 22 - 30 [facility] Glucose [Mass/volume] in Serum or Plasma 100 MG/DL 70 - 99 H [facility] BUN 12 [facility]DL 7 - [facility] Creat[facility] [Mass/volume] in Serum or Plasma 0.6 MG/DL 0.7 - 1.5 L [facility] BUN/CREAT 20 8 - 27 [facility] al Protein [Mass/volume] in Serum or Plasma 7.1 G/DL 6.3 - 8.2 [facility] Albumin [Mass/volume] in Serum or Plasma 4.8 G/DL 3.9 - 5.0 [facility] Globulin [Mass/volume] in Serum by calculation 2.3 GM/DL 2.4 - 3.2 L [facility] A/G RATIO 2.1 0.8 - 2.0 H [facility] al Calcium [Mass/volume] in Serum or Plasma 9.6 MG/DL 8.4 - 10.2 [facility] Bilirubin.total [Mass/volume] in Serum or Plasma <0.7 MG/DL 0.2 - 1.3 [facility] Alkaline phosphatase [Enzymatic activity/volume] in Serum or Plasma 75 U/L 38 - 126 [facility] Aspartate aminotransferase [Enzymatic activity/volume] in Serum or Plasma 13 U/L 5 - 40 [facility] Alanine aminotransferase [Enzymatic activity/volume] in Seru m or Plasma 11 U/L 7 - 56 [facility] Anion gap 3 in Serum or Plasma 11.0 mmol/L 8.0 - 16.0 [facility] AGE 35 yrs [facility] NON-AA GFR >60 mL/min [facility] ital AFR AMER GFR >60 mL/min [facility] Ho spital Male GFR In terprentation 20-49 yrs >60 mL/min Normal 50-59 yrs >56 mL/min Normal 60-69 yrs >49 mL/min Normal 70-79yrs >42 mL/min Normal 80 and above >35 mL/min Normal Female GFR Interpretation 20-39 yrs >60 mL/min Normal 40-49 yrs >58 mL/min Normal 50-59 yrs >51 mL/min Normal 60-69 yrs >45 mL/min Normal 70-79 yrs >39 mL/min Normal 80 and above >32 mL/min Normal ID Date Data Source [id number] 05/16/2021 02:04:00 PM EDT [facility] Name Value Range Interpretation Code Description Data Yadi rce(s) Supporting Document(s) Iron [Mass/volume] in Serum or Plasma 45 UG/DL 42 - 135 [facility] Iron binding capacity.unsaturated [Mass/volume] in Serum or Plasma 215 UG/DL 112 - 347 [facility] Iron binding capacity [Mass/volume] in Serum or Plasma 260 ug/dL 250 - 450 [facility] Iron saturation [Mass Fraction] in Serum or Plasma 17 % [facility] ID Date Data Source [id number] 05/16/2021 01:43:00 PM EDT [facility] Name Value Range Interpretation Code Description Data Yadi rce(s) Supporting Document(s) CBC W/AUTOMATED DIFF [facility] COMPLETE BLOOD COUNT Leukocytes [#/volume] in Blood by Automated count 12.6 10^3/uL 4.2 - 11.0 H [facility] Erythrocytes [#/volume] in Blood by Automated count 4.44 10^6/uL 4. 20 - 5.40 [facility] Hemoglobin [Mass/volume] in Blood 14.0 g/dL 12.0 - 16.0 [facility] Hematocrit [Volume Fraction] of Blood by Automated count 41.6 % 3 7.0 - 47.0 [facility] Erythrocyte mean corpuscular volume [Entitic volume] by Auto mated count 93.7 fL 81.0 - 101 [facility] Erythrocyte mean corpuscular hemoglobin [Entitic mass] by Automated count 31.5 pg 27.0 - 34.0 [facility] Erythrocyte mean corpuscular hemoglobin concentration [Mass/volume] by Automated count 33.7 g/dL 31.0 - 36.0 [facility] Erythrocyte distribution width [Ratio] by Automated count 13.9 % 11.5 - 14.5 [facility] Platelets [#/volume] in Blood by Automated count 210 10^3/uL 150 - 45 0 [facility] Platelet mean volume [Entitic volume] in Blood by Automated count 9.1 fL 7.4 - 10.4 [facility] Neutrophils/100 leukocytes in Blood by Automated count 66.7 % 37. 0 - 80.0 [facility] Lymphocytes/100 leukocytes in Blood by Manual count 24.8 % 25.0 - 40.0 L [facility] Monocytes/100 leukocytes in Blood by Automated count 6.6 % 3.0 - 8.0 [facility] Eosinophils/100 leukocytes in Blood by Automated count 1.4 % 0.0 - 7.0 [facility] Basophils/100 leukocytes in Blood by Automated count 0.2 % 0.0 - 2.5 [facility] %IG 0.3 % 0.0 - 0.0 H [facility] al %NRBC 0.0 % 0.0 - 0.0 [facility] al Neutrophils [#/volume] in Blood by Automated count 8.36 10^3/uL 2.00 - 6.90 H [facility] Lymphocytes [#/volume] in Blood by Automated count 3.12 10^3/uL 0.60 - 3.40 [facility] Monocytes [#/volume] in Blood by Automated count 0.83 10^3/uL 0.00 - 0.90 [facility] Eosinophils [#/volume] in Blood by Automated count 0.18 10^3/uL 0.00 - 0.70 [facility] Basophils [#/volume] in Blood by Automated count 0.03 10^3/uL 0.00 - 0.20 [facility] #IG 0.04 10^3/uL 0.00 - 0.10 [facility] #NRBC 0.00 10^3/uL 0.00 - 0.00 [facility] ospital MANUAL DIFF NOT INDICATED [facility] RBC MORPH NOT INDICATED [facility] ID Date Data Source [id number] 05/16/2021 01:22:00 PM EDT [facility] ([facility]) Name Value Range Interpretation Code Description Data Yadi rce(s) Supporting Document(s) Laboratory test finding (navigational concept) Laboratory test resu lt 0.0-0.9 [facility] ([facility]) Treponema pallidum Ab [Presence] in Serum Laboratory test result [facility] ([facility]) Hepatitis B virus surface Ag [Presence] in Serum or Pl asma by Immunoassay Laboratory test result [facility] ([facility]) ID Date Data Source [id number] 05/16/2021 01:22:00 PM EDT [facility] ([facility]) Name Value Range Interpretation Code Description Data Yadi rce(s) Supporting Document(s) HIV Screen 4thGeneration wRfx Laboratory test result [facility] ([facility]) ID Date Data Source [id number] 05/16/2021 01:22:00 PM EDT [facility] ([facility]) Name Value Range Interpretation Code Description Data Yadi rce(s) Supporting Document(s) HSV 1 IgG, Type Spec Laboratory test result 0.00-0.90 [facility] ([facility]) <content>Negative <0.91</content>
<content>Equivocal 0.91 - 1.09</content>
<content>Positive >1.09</content>
<content>Note: Negative indicates no antibodies detected to</content>
<content>HSV-1. Equivocal may suggest early infection. If</content>
<content>clinically appropriate, retest at later date. Positive</content>
<content>indicates antibodies detected to HSV-1.</content>
<content></content> HSV 2 IgG, Type Spec 2.06 index 0.00-0.90 Above high normal [facility] ([facility]) <content>Negative <0.91</content>
<content>Equivocal 0.91 - 1.09</content>
<content>Positive >1.09</content>
<content>Note: Negative indicates no antibodies detected to</content>
<content>HSV-2. Equivocal may suggest early infection. If</content>
<content>clinically appropriate, retest at later date. Positive</content>
<content>indicates antibodies detected to HSV-2.</content>
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 Positive/Equivocal Negative Unable to confirm the presence of IgG antibodies to HSV-2. Recommend retesting in 2-4 weeks. ID Date Data Source [id number] 05/16/2021 01:22:00 PM EDT [facility] ([facility]) Name Value Range Interpretation Code Description Data Yadi rce(s) Supporting Document(s) HSV, IgM I/II Combination Laboratory test result 0.00-0.90 [facility] ([facility]) <content>Negative <0.91</content>
<content>Equivocal 0.91 - 1.09</content>
<content>Positive >1.09</content>
<content></content> ID Date Data Source [id number] 05/16/2021 01:22:00 PM EDT [facility] ([facility]) Name Value Range Interpretation Code Description Data Yadi rce(s) Supporting Document(s) Fibrosis Score 0.02 NA 0.00-0.21 [facility] ([facility]) Fibrosis Stage Laboratory test result [facility] ([facility]) F0 - No fibrosis Necroinflammat ActivityScore 0.03 NA 0.00-0.17 [facility] ([facility]) Necroinflammat ActivityGrade Laboratory test result [facility] ([facility]) Haptoglobin 228 mg/dL 33-278 [facility] ([facility]) Alpha 2-Macroglobulins,Qn 157 mg/dL 110-276 [facility] ([facility]) Apolipoprotein A-1 105 mg/dL 116-209 Below low normal [facility] ([facility]) Bilirubin, Total 0.1 mg/dL 0.0-1.2 [facility] ([facility]) Laboratory test finding (navigational concept) Laboratory test result [facility] ([facility]) Quantitative results of 6 biochemical te sts are analyzed using a computational algorithm to provide a quantitative surrogate marker (0.0-1.0) for liver fibrosis (METAVIR F0-F4) and for necroinflammatory activity (METAVIR A0-A3). GGT 12 IU/L 0-60 [facility] ([facility]) Alt (SGPT) P5P 13 IU/L 0-40 [facility] ([facility]) Laboratory test finding (navigational concept) Laboratory test result [facility] [facility]) <content><=0.21 = Stage F0 - No fibrosis </content>
<content>0.21 - 0.27 = Stage F0 - F1</content>
<content>0.27 - 0.31 = Stage F1 - Portal fibrosis</content>
<content>0.31 - 0.48 = Stage F1 - F2</content>
<content>0.48 - 0.58 = Stage F2 - Bridging fibrosis with few septa</content>
<content>0.58 - 0.72 = Stage F3 - Bridging fibrosis with many septa</content>
<content>0.72 - 0.74 = Stage F3 - F4</content>
<content>>0.74 = Stage F4 - Cirrhosis</content>
<content></content> Laboratory test finding (navigational concept) Laboratory test result [facility] ([facility]) <content><0.17 = Grade A0 - No Activity< /content>
<content>0.17 - 0.29 = Grade A0 - A1</content>
<content>0.29 - 0.36 = Grade A1 - Minimal activity</content>
<content>0.36 - 0.52 = Grade A1 - A2</content>
<content>0.52 - 0.60 = Grade A2 - Moderate activity</content>
<content>0.60 - 0.62 = Grade A2 - A3</content>
<content>>0.62 = Grade A3 - Severe activity</content>
<content></content> Comment: Laboratory test result [facility] ([facility]) Laboratory test finding (navigational concept) Laboratory test result [facility] ([facility]) <content>The negative predictive value o f a Fibrotest score <0.31 (absence of</content>
<content>clinically significant fibrosis) was 85% when compared to liver biopsy</content>
<content>in 1,270 HCV infected patients with a 38% prevalence of significant</content>
<content>liver fibrosis (F2, 3 or 4). The positive predictive value of a Fibro-</content>
<content>test score >0.48 (F2, 3, 4) was 61% in that same patient cohort. HCV</content>
<content>FibroSURE is not recommended in patients with Gilbert Disease, acute</content>
<content>hemolysis (e.g. HCV ribavirin therapy mediated hemolysis) acute hepa-</content>
<content>titis of the liver, extra-hepatic cholestasis, transplant patients,</content>
<content>and/or renal insufficiency patients. Any of these clinical situations</content>
<content>may lead to inaccurate quantitative predictions of fibrosis and</content>
<content>necroinflammatory activity in the liver.</content>
<content></content> ID Date Data Source [id number] 05/20/2021 07:41:00 AM EDT [facility] Name Value Range Interpretation Code Description Data Yadi rce(s) Supporting Document(s) Fibrosis score 0.02 NA 0.00-0.21 [facility] ospital Fibrosis stage COMMENT [facility] ospital F0 - No fibrosis Necroinflammatory activity score 0.03 NA 0.00-0.17 [facility] Necroinflammatory activity grade A0-No activity [facility] Glixl-9-[id number] [Mass/volume] in Serum or Plasma 157 mg/dL 110 -276 [facility] Haptoglobin [Mass/volume] in Serum or Plasma 228 mg/dL 33-278 [facility] Apolipoprotein A-I [Mass/volume] in Serum or Plasma 105 mg/dL 116-20 9 L [facility] Bilirubin.total [Mass/volume] in Serum or Plasma 0.1 mg/dL 0.0-1.2 [facility] Gamma glutamyl transferase [Enzymatic activity/volume] in Serum or Plasma 12 IU/L 0-60 [facility] Alanine aminotransferase [Enzymatic acti vity/volume] in Serum or Plasma by With P-5'-P 13 IU/L 0-40 [facility] Interpretations: COMMENT [facility] Quantitative results of 6 biochemical te sts are analyzed usinga computational algorithm to provide a quantitative surrogatemarker (0.0-1.0) for liver fibrosis (METAVIR F0-F4) and fornecroinflammatory activity (METAVIR A0-A3). Fibrosis Scoring: COMMENT [facility] <=0.21 = Stage F0 - No fibrosis0.21 - 0.27 = Stage F0 - F10.27 - 0.31 = Stage F1 - Portal fibrosis0.31 - 0.48 = Stage F1 - F20.48 - 0.58 = Stage F2 - Bridging fibrosis with few septa0.58 - 0.72 = Stage F3 - Bridging fibrosis with many septa0.72 - 0.74 = Stage F3 - F4 >0.74 = Stage F4 - Cirrhosis Necroinflamm ActivityScoring: COMMENT [facility] <0.17 = Grade A0 - No Activity0.17 - 0.29 = Grade A0 - A10.29 - 0.36 = Grade A1 - Minimal activity0.36 - 0.52 = Grade A1 - A20.52 - 0.60 = Grade A2 - Moderate activity0.60 - 0.62 = Grade A2 - A3 >0.62 = Grade A3 - Severe activity Service comment COMMENT [facility] The negative predictive value of a Fibro test score <0.31 (absence ofclinically significant fibrosis) was 85% when compared to liver biopsyin 1,270 HCV infected patients with a 38% prevalence of significantliver fibrosis (F2, 3 or 4). The positive predictive value of a Fibro-test score >0.48 (F2, 3, 4) was 61% in that same patient cohort. HCVFibroSURE is not recommended in patients with Gilbert Disease, acutehemolysis (e.g. HCV ribavirin therapy mediated hemolysis) acute hepa-titis of the liver, extra-hepatic cholestasis, transplant patients,and/or renal insufficiency patients. Any of these clinical situationsmay lead to inaccurate quantitative predictions of fibrosis andnecroinflammatory activity in the liver. Laboratory comment [Text] in Report Narrative WILL FOLLOW [facility] ID Date Data Source [id number] 05/18/2021 04:18:00 PM EDT [facility] Name Value Range Interpretation Code Description Data Yadi rce(s) Supporting Document(s) Herpes simplex virus 1+2 IgM Ab [Units/volume] in Seru m by Immunoassay <0.91 Ratio 0.00-0.90 [facility] Negative <0.91 Equivocal 0.91 - 1.09 Positive >1.09 ID Date Data Source [id number] 05/17/2021 04:56:[address] [facility] Value Range Interpretation Code Description Data Yadi rce(s) Supporting Document(s) Herpes simplex virus 1 IgG Ab [Units/volume] in Serum by Immunoassay <0.91 index 0.00-0.90 [facility] Negative <0.91 Equivocal 0.91 - 1.09 Positive >1.09 Note: Negative indicates no antibodies detected to HSV-1. Equivocal may suggest early infection. If clinically appropriate, retest at later date. Positive indicates antibodies detected to HSV-1. Herpes simplex virus 2 IgG Ab [Units/volume] in Serum by Imm unoassay 2.06 index 0.00-0.90 H [facility] Negative <0.91 Equivocal 0.91 - 1.09 Positive >1.09 Note: Negative indicates no antibodies detected to HSV-2. Equivocal may suggest early infection. If clinically appropriate, retest at later date. Positive indicates antibodies detected to HSV-2. Herpes simplex virus 2 IgG Ab [Presence] in Serum or P lasma by Immunoassay Positive Negative A [facility] HSV-2 IgG HSV-2 IgG Type Specific Confirmation Interpretation Positiv e/Equivocal Positive Indicates the presence of detectable IgG antibodies to HSV-2. ------ Positive/Equivocal Negative Unable to confirm the presence of IgG antibodies to HSV-2. Recommend retesting in 2-4 weeks. ID Date Data Source [id number] [facility]/17[facility]21 [facility]:48[facility] Interpretation Code Description Data Yadi rce(s) Supporting Document(s) HIV 1+2 Ab+HIV1 p24 Ag [Presence] in Serum or Plasma b y Immunoassay Non Reactive Non Reactive [facility] ID Date Data Source [id number] 05/17/2021 04:48:00 PM EDT [facility] Name Value Range Interpretation Code Description Data Yadi rce(s) Supporting Document(s) Hepatitis C virus Ab Signal/Cutoff in Serum or Plasma by Immunoassay <0.1 s/coratio 0.0-0.9 [facility] ID Date Data Source [id number] 05/16/2021 02:29:00 PM EDT [facility] Name Value Range Interpretation Code Description Data Yadi rce(s) Supporting Document(s) Hepatitis B virus surface Ab [Units/volume] in Serum o r Plasma by Immunoassay NONREACTIVE NORMAL:NON REACTIVE [facility] ID Date Data Source [id number] 05/16/2021 02:29:00 PM EDT [facility] Name Value Range Interpretation Code Description Data Yadi rce(s) Supporting Document(s) Treponema pallidum Ab [Presence] in Serum NON-REACTIVE NORMAL:NON KALPA[place] CTIVE [facility] ID Date Data Source [id number] 05/12/2021 08:28:00 AM EDT [facility] ([facility]) Name Value Range Interpretation Code Description Data Yadi rce(s) Supporting Document(s) Laboratory test finding (navigational concept) Laboratory test result [facility] ([facility]) .~.~Z11.59 Sars-CoV-2, Anne Laboratory test result [facility] ([facility]) .~.~Z11.59 ID Date Data Source [id number] 05/12/2021 08:28:00 AM EDT [facility] Name Value Range Interpretation Code Description Data Yadi rce(s) Supporting Document(s) SARS coronavirus 2 RNA Not Detected [facility] This lab was ordered by [facility] Charlie montero and reported by [facility]. ID Date Data Source [id number] 05/14/2021 06:53:00 AM EDT [facility] Name Value Range Interpretation Code Description Data Yadi rce(s) Supporting Document(s) SARS-CoV-2, ANNE Not Detected Not Detected [facility] This nucleic acid amplification test was developed and its performancecharacteristics determined by [employer]. Nucleic acidamplification tests include RT-PCR and TMA. This test has not beenFDA cleared or approved. This test has been authorized by FDA underan Emergency Use Authorization (EUA). This test is only authorizedfor the duration of time the declaration that circumstances existjustifying the authorization of the emergency use of in vitrodiagnostic tests for detection of SARS-CoV-2 virus and/or diagnosisof COVID-19 infection under section 564(b)(1) of the Act, 21 U.S.C.360bbb-3(b) (1), unless the authorization is terminated or revokedsooner.When diagnostic testing is negative, the possibility of a falsenegative result should be considered in the context of a patient'srecent exposures and the presence of clinical signs and symptomsconsistent with COVID- 19. An individual without symptoms of COVID-19and who is not shedding SARS-CoV-2 virus would expect to have anegative (not detected) result in this assay. SARS-CoV-2, ANNE 2 DAY TAT Performed [facility] ID Date Data Source [id number] 05/12/2021 08:28:00 AM EDT [facility] ([facility]) Name Value Range Interpretation Code Description Data Yadi rce(s) Supporting Document(s) Covid-19 Laboratory test result [facility] ([facility]) ID Date Data Source [id number] 05/12/2021 07:44:00 AM EDT [facility] 1 Medication Reconciliation Report [facility] Emergency Department [address] [place] [address] Phone #: ext- [phone] 05/12/2021 07:40 Patient: ANTOINETTE NOGUERA Sex: F : 1985 Age: 35yWeight: 67.1 kgHeight/Length: 61 in.BMI: 28.0ALLERGIES: Morphine and RelatedThe patient's Home Medications are listed below:THE FOLLOWING MEDICATIONS NEED TO BE RECONCILED: PropanololThe source(s) of the original Home Medication information:Not obtained.The following Medications were given to the patient in the Emergency Department:None.The following Medications were prescribed to the patient:None. Name Value Range Interpretation Code Description Data Yadi rce(s) Supporting Document(s) ID Date Data Source [id number] 05/12/2021 07:44:00 AM EDT [facility] 1 Medication Administration Record [facility] Emergency Department [address] [place] [address] Phone #: ext- [phone] 05/12/2021 07:40 Patient: ANTOINETTE NOGUERA Sex: F : 1985 Age: 35yWeight: 67.1 kgHeight/Length: 61 inBMI: 28ALLERGIES: Morphine and RelatedDate/Time Medication Administered Medication Ordered Name Value Range Interpretation Code Description Data Yadi [facility](s) Supporting Document(s) ID Date Data Source [id number] 05/12/2021 07:44:00 AM EDT [facility] 1 General Instructions [facility] Emergency Department [address] [place] [address] Phone #: ext- [phone] 05/12/2021 07:40 Patient: ANTOINETTE NOGUERA Sex: F : 1985 Age: 35yAcute sore throat.Left Without Being Seen.INSTRUCTIONSEloped: Patient left the Emergency Department; (during history taking). Notified the charge nurse andprimary nurse of patient departure. Stated is leaving the ED due to personal reasons.(Electronically signed by Paramjit Yusuf M.D. 05/12/2021 08:21) Name Value Range Interpretation Code Description Data Yadi rce(s) Supporting Document(s) ID Date Data Source [id number] 05/12/2021 07:44:00 AM EDT [facility] 1 Clinical Report - Nurses [facility] Emergency Department [address] [place] [address] Phone #: ext- [phone] 05/12/2021 07:40 Patient: ANTOINETTE NOGUERA Sex: F : 1985 Age: 35yTRIAGEArrived by private vehicle. Historian: patient. Unaccompanied. ( here today because she has a sorethroat and cough, now states she wants a test because she had a faint line on a homepregnancy test but had her tubes tied).Acuity: LEVEL 4.Chief Complaint: SORE THROAT and CHILLS.Alert. No acute distress.Onset. (5 days). She has had fever (wednesday). ( runny nose, congtestion).Treatment INSULATOR TECHNICIAN:Took ibuprofen. (330).SEPSIS SCREEN: SIRS SCREEN NEGATIVE. SEPSIS SCREEN NEGATIVE. No suspected or confirmedsigns of infection present. --07:46 05/12/21 Simi Maradiaga R.N.07:41 05/12/21. BP: 135/92. MAP: 106. HR: 105. RR: 18. O2 saturation: 99%. Temp: 98 F. Pain levelnow: 12/30. --07:46 05/12/21 Simi Maradiaga R.N.Weight: 67.1 kg stated. Height/Length: 61 inches Per Patient. BMI: 28. --07:41 05/12/21 Simi Maradiaga R.N.MedicationsPropanolol. --07:48 05/12/21 Simi Maradiaga R.N.AllergiesMorphine and Related.(hives, rash) --07:48 05/12/21 Simi Maradiaga R.N.The following entry was struck by Simi Maradiaga R.N., 07:48 (05/12/21) Reason - other. Opiates. --07:42 05/12/21 Simi Maradiaga R.N. .PROBLEMS:Abdominal Pain.Chronic Headache.Intrauterine .Bipolar Disorder.Borderline personality disorder.Diarrhea.Headache.Schizophrenia. 2 Clinical Report - Nurses [facility] Emergency Department [address] [place] [address] Phone #: ext- [phone] 05/12/2021 07:40 [id number] Sex[facility] F : 1985 Age: 35yVomiting.Seasonal allergic rhinitis.Mood Disorder. --07:49 05/12/21 Simi Maradiaga R.N.The following entry was modified by Simi Maradiaga R.N., 07:49 05/12/21Hyperthyroidism. --07:48 05/12/21 Simi Maradiaga R.N.The following entry was modified by Simi Maradiaga R.N., 07:49 05/12/21ITP. --07:48 05/12/21 Simi Maradiaga R.N.The following entry was modified by Simi Maradiaga R.N., 07:49 05/12/21Migraine Headache. --07:48 05/12/21 Simi Maradiaga R.N..ADDITIONAL SURGERIES: (X4).Tonsillectomy.Tubal Ligation. --07:49 05/12/21 Simi Maradiaga R.N.HistoryPAST MEDICAL HX: Immunizations: up-to-date. Last normal menstrual period- Apr 26, tubal.SOCIAL HX: Light tobacco smoker- less than 1/2 a pack per day. Occasional alcohol use. Heavy druguse: marijuana. She was offered HIV testing but declined and hepatitis C testing but declined. She hasnot traveled outside the [place]Infectious disease exposure: No infectious disease exposure. The patient was not exposed to Coronavirus.(has been vaccinated). Patient is not a known carrier of tuberculosis, hepatitis, HIV, MRSA or VRE. Patientis not a known carrier of CRE.SELF HARM ASSESSMENT: Self harm assessment was performed. The p atient answered "no" to thequestion(s) "Have you recently felt down, depressed, or hopeless?" and "Do you have thoughts of harmingor killing yourself?".ABUSE ASSESSMENT: Abuse assessment. Abuse denied. No suspicion of abuse. No report of abuse.NUTRITIONAL RISK ASSESSMENT: The nutritional risk assessment revealed no deficiencies.FUNCTIONAL ASSESSMENT: Functional assessment: no impairments noted.LEARNING NEEDS ASSESSMENT: The learning needs assessment revealed no barriers.FALL RISK ASSESSMENT: Fall risk assessment completed. No risk factors identified.SKIN INTEGRITY ASSESSMENT: Skin integrity risk assessment completed. No skin integrity riskidentified. --07:46 05/12/21 Simi Maradiaga R.N.InterventionsIdentification band on patient. To treatment room. --07:46 05/12/21 Simi Maradiaga R.N. 3 Clinical Report - Nurses [facility] Emergency Department [address] [place] [address] Phone #: ext- [phone] 05/12/2021 07:40 Patient: ANTOINETTE NOGUERA Sex: F : 1985 Age: 35yPHYSICAL ASSESSMENTAmbulatory to room.GENERAL / NEURO / PSYCH: Alert. Oriented X 4. Appears in no acute distress.HEENT: Runny nose. Mouth within normal limits upon inspection. No dental injury noted. Mucousmembranes are pink.RESPIRATORY: Respirations not labored. Cough.CVS: Capillary refill less than 2 seconds.SKIN: Skin is warm and dry. Normal skin turgor. --07:47 05/12/21 Simi Maradiaga R.N.NURSING PROGRESS NOTESPatient gowned. Reassurance given. Two patient identifiers checked. Call light placed in reach. Siderails up x 2. Bed placed in lowest position. Brakes of bed on. Patient ready for evaluation. --07:489 Simi Maradiaga R.N.DISPOSITION / DISCHARGE The patient left the Emergency Department without being seen by a physician; patient was unaccompanied. The patient appears to be alert, oriented x4 and coherent. She notified staff prior to leaving the department and stated is leaving due to personal reasons. Notified the ED physician of patient departure. She left the Emergency Department ambulatory and via private vehicle. The patient eloped. -- 07:58 05/12/21 Simi Maradiaga R.N. Departure time: 07:58 05/12/2021. --07:58 05/12/21 Simi Maradiaga R.N.Locked/Released at 05/12/2021 07:59 by Simi Maradiaga R.N. Name Value Range Interpretation Code Description Data Yadi rce(s) Supporting Document(s) ID Date Data Source [id number] 05/12/2021 07:44:00 AM EDT [facility] 1 Clinical Report - Physicians/Mid Levels [facility] Emergency Department [address] [place] [address] Phone #: ext- [phone] 05/12/2021 07:40 Patient: ANTOINETTE NOGUERA Sex: F : 1985 Age: 35y Time Seen: 07:48 05/12/2021; initial patient contact. Arrived- By private vehicle. Historian- patient. Disposition decision: 07:56 05/12/2021.HISTORY OF PRESENT ILLNESS Chief Complaint: SORE THROAT. This started 5 days ago and is still present. Pain described as mild. The patient has had a sore throat and nasal congestion. Similar symptoms previously. Recent medical care: Not recently seen/assessed.REVIEW OF SYSTEMSNo fever, eye discomfort, difficulty breathing, chest pain or nausea. No diarrhea, abdominal pain, difficultywith urination, headache or fainting episodes. No joint pain, skin rash, enlarged lymph nodes or vomiting.The patient has had a mild nonproductive cough. All other systems reviewed and are negative.PAST HISTORYSee nurses notes. Problems: ITP. Migraine Headache. Idiopathic thrombocytopenia purpura. Hyperthyroidism. Chronic Headache. Bipolar Disorder. Borderline personality disorder. Schizophrenia. UTI - Urinary Tract Infection. Seasonal allergic rhinitis. Additional Surgeries: . (X4) Tonsillectomy. Tubal Ligation. Medications: Propanolol. Allergies: Morphine and Related.(hives, rash). 2 Clinical Report - Physicians/Mid [facility] Emergency Department [address] [place] [address] Phone #: ext- [phone] 05/12/2021 07:40 Patient: ANTOINETTE NOGUERA Sex: F : 1985 Age: 35ySOCIAL HISTORYLight tobacco smoker- less than 1/2 a pack per day. Occasional alcohol use. Heavy drug use:marijuana.ADDITIONAL NOTESThe nursing notes have been reviewed with agreement regarding the chief complaint, HPI, ROS, PMH andpatient medications and allergies.PHYSICAL EXAMVital Signs: 05/12/2021 07:41 BP: 135/92. MAP: 106. HR: 105. RR: 18. O2 saturation: 99%. Temp: 98 F.Pain level now: 5/10. Have been reviewed and appear to be correct.PROGRESS AND PROCEDURESCourse of Care: 07:59 05/12/21. pt was initially rude to wash test checker, berated her, then I came into roomafterwards taking usually History, on side of stretcher, and was about to do physical exam, she shouted atme "move away, you're making me feel uncomfortable, I'm leaving"; so I answered back, " I'm not sure whyyou are saying that, I'm here to help you", and she interrupted me repeating, "please leave the room, you'remaking feel uncomfortable", so I left the room; she came out and told the RN's at nurse's station, "I'm goingto leave because he's making me feel uncomfortable"; and she left the ER ([facility]BS).CLINICAL IMPRESSION Acute sore throat. Left Without Being Seen.INSTRUCTIONS Eloped: Patient left the Emergency Department; (during history taking). Notified the charge nurse and primary nurse of patient departure. Stated is leaving the ED due to personal reasons.(Electronically signed by Paramjit Yusuf M.D. 05/12/2021 08:21) Name Value Range Interpretation Code Description Data Yadi rce(s) Supporting Document(s) ID Date Data Source [id number] 05/07/2021 02:29:00 PM EDT [facility] ([facility]) Name Value Range Interpretation Code Description Data Yadi rce(s) Supporting Document(s) Z#Other Observations Laboratory test result [facility] ([facility]) ID Date Data Source [id number] 05/07/2021 02:29:00 PM EDT [facility] ([facility]) Name Value Range Interpretation Code Description Data Yadi rce(s) Supporting Document(s) Chlamydia trachomatis rRNA [Presence] in Unspecified s pecimen by DNA probe Laboratory test result [facility] ([facility]) Neisseria gonorrhoeae DNA [Presence] in Cervical mucus by Probe and target amplification method Laboratory test result [facility] ([facility]) ID Date Data Source [id number] 05/07/2021 02:27:00 PM EDT [facility] ([facility]) Name Value Range Interpretation Code Description Data Yadi rce(s) Supporting Document(s) Source: Laboratory test result [facility] ([facility]) {SOURCE: Genital Ladi species Laboratory test result Abnormal (applies to non-numeric results) [facility] ([facility]) {SOURCE: Genital Gardnerella vaginalis Laboratory test result Abn ormal (applies to non-numeric results) [facility] ([facility]) {SOURCE: Genital Trichomonas vaginalis Laboratory test result [facility] ([facility]) {SOURCE: Genital ID Date Data Source [id number] 05/07/2021 02:27:00 PM EDT [facility] ([facility]) Name Value Range Interpretation Code Description Data Yadi rce(s) Supporting Document(s) Chlamydia by Anne Laboratory test result [facility] ([facility]) {SOURCE: Genital Source: Laboratory test result [facility] ([facility]) {SOURCE: Genital Trich vag by Anne Laboratory test result [facility] ([facility]) {SOURCE: Genital Gonococcus by Anne Laboratory test result [facility] ([facility]) {SOURCE: Genital ID Date Data Source [id number] 05/07/2021 02:27:00 PM EDT [facility] ([facility]) Name Value Range Interpretation Code Description Data Yadi rce(s) Supporting Document(s) Treponema pallidum IgG Ab [Presence] in Serum Laboratory test result [facility] ([facility]) Laboratory test finding (navigational concept) Laboratory test result [facility] ([facility]) Hepatitis B virus surface Ag [Presence] in Serum or Pl asma by Immunoassay Laboratory test result [facility] ([facility]) ID Date Data Source [id number] 05/07/2021 02:27:00 PM EDT [facility] ([facility]) Name Value Range Interpretation Code Description Data Yadi rce(s) Supporting Document(s) Hepatitis C virus Ab [Units/volume] in Serum by Immuno assay Laboratory test result [facility] ([facility]) ID Date Data Source [id number] 05/07/2021 02:27:00 PM EDT [facility] ([facility]) Name Value Range Interpretation Code Description Data Yadi rce(s) Supporting Document(s) Treponema pallidum Ab [Presence] in Serum Laboratory test result [facility] ([facility]) ID Date Data Source [id number] 05/10/2021 06:44:00 AM EDT [facility] Name Value Range Interpretation Code Description Data Yadi rce(s) Supporting Document(s) SOURCE: Genital [facility] Chlamydia trachomatis rRNA [Presence] in Unspecified specimen by Probe and target amplification method Negative Negative [facility] Neisseria gonorrhoeae rRNA [Presence] in Unspecified specimen by Probe and target amplification method Negative Negative [facility] Trichomonas vaginalis DNA [Presence] in Unspecified specimen by Probe and target amplification method Negative Negative [facility] ID Date Data Source [id number] 05/09/2021 07:41:00 PM EDT [facility] Name Value Range Interpretation Code Description Data Yadi rce(s) Supporting Document(s) [facility] [Presence] in Vaginal fluid by DNA probe Positive N egative [facility] Gardnerella vaginalis rRNA [Presence] in Genital specimen by DNA probe Positive Negative A [facility] Trichomonas vaginalis rRNA [Presence] in Genital specimen by DNA probe Negative Negative [facility] ID Date Data Source [id number] 05/07/2021 02:05:00 PM EDT [facility] ([facility]) Name Value Range Interpretation Code Description Data Yadi rce(s) Supporting Document(s) Laboratory test finding (navigational concept) Laboratory test result [facility] ([facility]) .~.~R30.0 Color Laboratory test result [facility] ([facility]) .~.~R30.0 Source Laboratory test result [facility] ([facility]) .~.~R30.0 Spec [place] 1.020 1.001-1.030 [facility] ([facility]) .~.~R30.0 Clarity Laboratory test result [facility] ([facility]) .~.~R30.0 Glucose Laboratory test result [facility] ([facility]) .~.~R30.0 pH 6 5-9 [facility] ([facility]) .~.~R30.0 Bilirubin Laboratory test result [facility] ([facility]) .~.~R30.0 Ketone Laboratory test result [facility] ([facility]) .~.~R30.0 Nitrite Laboratory test result [facility] ([facility]) .~.~R30.0 Protein 15 [facility] ([facility]) .~.~R30.0 Leuk Est 25 [facility] ([facility]) .~.~R30.0 Blood 10 Abnormal (applies to non-numeric res ults) [facility] ([facility]) .~.~R30.0 Urobilinogen Laboratory test result [facility] ([facility]) .~.~R30.0 Microscopic Laboratory test result [facility] ([facility]) .~.~R30.0 RBC Laboratory test result [facility] ([facility]) .~.~R30.0 WBC Laboratory test result Abnormal (applies to non -numeric results) [facility] ([facility]) .~.~R30.0 Bacteria Laboratory test result Abnormal (applies to non -numeric results) [facility] ([facility]) .~.~R30.0 Epithelial Laboratory test result [facility] ([facility]) .~.~R30.0 Mucous Laboratory test result [facility] ([facility]) .~.~R30.0 Yeast Laboratory test result Abnormal (applies to non -numeric results) [facility] ([facility]) .~.~R30.0 ID Date Data Source [id number] 05/07/2021 02:05:00 PM EDT [facility] ([facility]) Name Value Range Interpretation Code Description Data Yadi rce(s) Supporting Document(s) Culture Urine Laboratory test result [facility] ([facility]) .~.~R30.0 ID Date Data Source [id number] 05/14/2021 02:06:00 PM EDT [facility] Name Value Range Interpretation Code Description Data Yadi rce(s) Supporting Document(s) CULTURE URINE [facility] spital _CULTURE URINE_$$[id number]$$[id number]$$[id number]$$466023$$321839$$141715$$949979$$450423$$850661$$ 176338$$417217$$811436$$431137$$510739$$308561$$423022$$042407$$364944$$043954$$ 837993$$306720$$593083$$340562$$919021$$255833$$[id number]$$[id number] -- Continued on next page --Patient: POORNIMA Denney Order: [id number] Page 2Culture: CULTURE URINE Status: Final ==== -- Continued on next page --Patient: POORNIMA Denney Order: [id number] Page 2Culture: CULTURE URINE Status: Prelim ===== -- Continued on next page --Patient: POORNIMA Denney Order: [id number] Page 2Culture: CULTURE URINE Status: Prelim =====$$[id number]$$[id number] DATE/TIME: 05/14/2021 12:06Culture: CULTURE URINE Status: FinalIsolate 1 Escherichia coli Flag: A . . . . . . .1Greater than 100,000 colony forming units per mLCefazolin <=4 ug/mLCefazolin with an CRISTINA <=16 predicts susceptibility to the oral agentscefaclor, cefdinir, cefpodoxime, cefprozil, cefuroxime, cephalexin,and loracarbef when used for therapy of uncomplicated urinary tractinfections due to E. coli, Klebsiella pneumoniae, and Proteusmirabilis. Previous result entered on 05/13/2021 09:26 ET Escherichia coliSusceptibility results being verified. Final report to follow. Previous result entered on 05/11/2021 07:12 ET Gram negative rodsUrine Culture,Comprehensive: [id number] coli Flag: APatient: POORNIMA Denney Order: [id number] Page 3Culture: CULTURE URINE Status: Final ====ISOLATE 1 Escherichia coli Isolate 1Antibiotic CRISTINA IntUnits ug/mL ----Amoxicillin/Clavulanic Acid S S . . . . . .20-8Ampicillin S S . . . . . .28-1Cefepime S S . . . . . .6644-9Ceftriaxone S S . . . . . .141-2Cefuroxime S S . . . . . .145- 3Ciprofloxacin S S . . . . . .185-9Ertapenem S S . . . . . .00313-3Sadojueedd S S . . . . . .267-5Imipenem S S . . . . . .279-0Levofloxacin S S . . . . . .59990-9Uaggtfyqy S S . . . . . .6652-2Nitrofurantoin S S . . . . . .363- 2Piperacillin/Tazobactam S S . . . . . .412-7Tetracycline S S . . . . . .496-0Tobramycin S S . . . . . .508-2Trimethoprim/Sulfa S S . . . . . .516-5P1 Test performed by: [facility] #: [id number] [address] [id number] [facility] [id number] Director : Armando Lang MD NPI #:[employer] : 05/12/[id number].SENT REF 05/13/21.1623.XMT.SENT REF 05/14/21.1406.XMT.SENT REF ID Date Data Source [id number] 05/07/2021 08:53:00 PM EDT [facility] Name Value Range Interpretation Code Description Data Yadi rce(s) Supporting Document(s) UA REFLEX TO UA CULTURE [facility] URINALYSIS SOURCE R [facility] COLOR yellow NORMAL: Yellow [facility]spital CLARITY hazy NORMAL: Clear [facility] Ho spital Specific gravity of Urine by Test strip 1.020 1.001 - 1.030 [facility] pH 6 5 - 9 [facility] Gl[facility] [Mass/volume] in Urine by Test strip NORM [facility] Bilirubin.total [Presence] in Urine by Test strip NEG NORMAL: Negative [facility] Ketones [Presence] in Urine by Test strip NEG NORMAL: Negative [facility] Protein [Mass/volume] in Urine by Test strip 15 [facility] Nitrite [Presence] in Urine by Test strip POS NORMAL: Negative [facility] BLOOD 10 NORMAL: Negative [facility] Leukocyte esterase [Presence] in Urine by Test strip 25 SHARON L: Negative [facility] Urobilinogen [Mass/volume] in Urine by Test strip NOR less lynette n 1.0 mg/dL [facility] MICROSCOPIC See Below [facility] ital WBC 5 - [address]: NONE SE[address] [facility] Erythrocytes [#/volume] in Urine by Test strip 1 - 3 NORMAL: NON E SEEN [facility] EPITHELIAL None Seen NORMAL: NONE SEEN [facility] Bacteria [Presence] in Urine sediment by Light microscopy 3+ LARGE NORMAL: NONE SEEN A [facility] Mucus [Presence] in Urine sediment by Light microscopy 1+ NOR MAL: NONE SEEN [facility] YEAST Few A [facility] HYPAE YEAST ID Date Data Source [id number] 04/13/2021 02:54:00 PM EDT [facility] ([facility]) Name Value Range Interpretation Code Description Data Yadi rce(s) Supporting Document(s) Sars-CoV-2, Anne Laboratory test result [facility] ([facility]) This nucleic acid amplification test was developed and its performance characteristics determined by [employer]. Nucleic acid amplification tests include RT-PCR [...] negative (not detected) result in this assay. Laboratory test finding (navigational concept) Laboratory test result [facility] ([facility]) ID Date Data Source [id number] 04/16/2021 03:33:00 PM EDT [facility] Name Value Range Interpretation Code Description Data Yadi rce(s) Supporting Document(s) SARS-CoV-2, ANNE Not Detected Not Detected [facility] This nucleic acid amplification test was developed and its performancecharacteristics determined by [employer]. Nucleic acidamplification tests include RT-PCR and TMA. This test has not beenFDA cleared or approved. This test has been authorized by FDA underan Emergency Use Authorization (EUA). This test is only authorizedfor the duration of time the declaration that circumstances existjustifying the authorization of the emergency use of in vitrodiagnostic tests for detection of SARS-CoV-2 virus and/or diagnosisof COVID-19 infection under section 564(b)(1) of the Act, 21 U.S.C.360bbb-3(b) (1), unless the authorization is terminated or revokedsooner.When diagnostic testing is negative, the possibility of a falsenegative result should be considered in the context of a patient'srecent exposures and the presence of clinical signs and symptomsconsistent with COVID- 19. An individual without symptoms of COVID-19and who is not shedding SARS-CoV-2 virus would expect to have anegative (not detected) result in this assay. SARS-CoV-2, ANNE 2 DAY TAT Performed [facility] ID Date Data Source [id number] 04/13/2021 02:53:00 PM EDT [facility] Name Value Range Interpretation Code Description Data Yadi rce(s) Supporting Document(s) SARS coronavirus 2 RNA Not Detected [facility] This lab was ordered by [facility] Charlie montero and reported by [facility]. ID Date Data Source [id number] 03/26/2021 02:11:00 PM EDT [facility] ([facility]) Name Value Range Interpretation Code Description Data Yadi rce(s) Supporting Document(s) White Blood Count 9.9 10 4.0-10.0 Normal (applies to non-numeri c results) [facility] ([facility]) Red Blood Count 4.22 10 4.00-5.40 Normal (applies to non-numeric results) [facility] ([facility]) Hemoglobin 13.1 g/dL 12.0-15.5 Normal (applies to non-numeric resul ts) [facility] ([facility]) Hematocrit 39.7 % 36.0-47.0 Normal (applies to non-numeric resul ts) [facility] ([facility]) Mean Corpuscular Volume 94.1 fl 80.0-96.0 Normal ( applies to non-numeric results) [facility] ([facility]) Mean Corpuscular Hemoglobin 31.0 pg 27.0-33.0 Norm al (applies to non-numeric results) [facility] ([facility]) Mean Corpuscular HGB Conc 33.0 g/dL 32.0-36.5 Normal (applies to non-numeric results) [facility] ([facility]) Red Cell Distribution Width 14.5 % 11.5-14.5 Norm al (applies to non-numeric results) [facility] ([facility]) Platelet Count, Automated 245 10 150-450 Normal (applies to non-numeric results) [facility] ([facility]) Neutrophils % 64.3 % 36.0-66.0 Normal (applies to non-numeric re sults) [facility] ([facility]) Lymph % 27.1 % 24.0-44.0 Normal (applies to non-numeric resul ts) [facility] ([facility]) Eos % 1.5 % 0.0-3.0 Normal (applies to non-numeric resul ts) [facility] ([facility]) [facility] % 6.4 % 2.0-8.0 Normal (applies to non-numeric resul ts) [facility] ([facility]) Nucleated Red Blood Cell % 0.0 % 0-0 Normal (applies to n on-numeric results) [facility] ([facility]) Baso % 0.3 % 0.0-1.0 Normal (applies to non-numeric resul ts) [facility] ([facility]) Immature Granulocyte % 0.4 % 0-3.0 Normal (applies to non-n umeric results) [facility] ([facility]) Neutrophils # 6.4 10 1.5-8.5 Normal (applies to non-numeric re sults) [facility] ([facility]) Lymph # 2.7 10 1.5-5.0 Normal (applies to non-numeric resul ts) [facility] ([facility]) Eos # 0.2 10 0.0-0.5 Normal (applies to non-numeric resul ts) [facility] ([facility]) [facility]ension # 0.6 10 0.0-0.8 Normal (applies to non-numeric resul ts) [facility] ([facility]) Baso # 0.0 10 0.0-0.2 Normal (applies to non-numeric resul ts) [facility] ([facility]) ID Date Data Source [id number] 03/26/2021 02:11:00 PM EDT [facility] ([facility]) Name Value Range Interpretation Code Description Data Yadi rce(s) Supporting Document(s) Glucose, Fasting 109 mg/dL 70-100 Above high normal [facility] ([facility]) Blood Urea Nitrogen 14 mg/dL 7-18 Normal (applies to non-nume boby results) [facility] ([facility]) Creatinine For GFR 0.66 mg/dL 0.55-1.30 Normal (applies to non -numeric results) [facility] ([facility]) Glomerular Filtration Rate Laboratory test result Normal (applies to non- numeric results) [facility] ([facility]) <content>Units are mL/min/1.73 m2</content>
<content></content>
<content>Chronic Kidney Disease Staging per NKF:</content>
<content></content>
<content>Stage I & II GFR >=60 Normal to Mildly Decreased</content>
<content>Stage III GFR 30- 59 Moderately Decreased</content>
<content>Stage IV GFR 15-29 Severely Decreased</content>
<content>Stage V GFR <15 Very Little GFR Left</content>
<content>ESRD GFR <15 on ENGINEERING AND DEVELOPMENT DIRECTOR</content>
<content></content> Sodium Level 141 meq/L 136-145 Normal (applies to non-numeric res ults) [facility] ([facility]) Potassium Serum 3.9 meq/L 3.5-5.1 Normal (applies to non-numeric results) [facility] ([facility]) Chloride Level 111 meq/L 98-107 Above high normal [facility] ([facility]) Carbon Dioxide Level 26 meq/L 21-32 Normal (applies to non-num maye results) [facility] ([facility]) Calcium Level 8.9 mg/dL 8.5-10.1 Normal (applies to non-numeric re sults) [facility] ([facility]) Anion Gap 4 meq/L 8-16 Below low normal [facility] ( [facility]) Ast/Sgot 12 U/L 7-37 Normal (applies to non-numeric resul ts) [facility] ([facility]) Alt/SGPT 18 U/L 12-78 Normal (applies to non-numeric resul ts) [facility] ([facility]) Alkaline Phosphatase 76 U/L 45-117 Normal (applies to non-num maye results) [facility] ([facility]) Bilirubin,Total 0.5 mg/dL 0.2-1.0 Normal (applies to non-numeric results) [facility] ([facility]) Albumin 3.9 GM/DL 3.2-5.2 Normal (applies to non-numeric resul ts) [facility] ([facility]) Total Protein 7.2 GM/DL 6.4-8.2 Normal (applies to non-numeric re sults) [facility] ([facility]) Albumin/Globulin Ratio 1.2 1.2-2.2 Normal (applies to non-n umeric results) [facility] ([facility]) ID Date Data Source [id number] 03/26/2021 02:11:00 PM EDT [facility] ([facility]) Name Value Range Interpretation Code Description Data Yadi rce(s) Supporting Document(s) Ferritin [Mass/volume] in Serum or Plasma 73 ng/mL 8-252 Normal (applies to non- numeric results) [facility] ([facility]) <content>note:<nlbl:demographic_changed> </content>
<content></content> ID Date Data Source [id number] 03/26/2021 02:11:00 PM EDT [facility] ([facility]) Name Value Range Interpretation Code Description Data Yadi rce(s) Supporting Document(s) Iron (Fe) 78 ug/dL 50-170 Normal (applies to non-numeric resul ts) [facility] ([facility]) Total Iron Binding Capacity 256 ug/dL 250-450 Norm al (applies to non-numeric results) [facility] ([facility]) Percent Saturation 30.5 % 13.2-45.0 Normal (applies to non-numer ic results) [facility] ([facility]) ID Date Data Source [id number] 02/07/2021 01:35:00 PM EDT [facility] ([facility]) Name Value Range Interpretation Code Description Data Yadi rce(s) Supporting Document(s) Sars-CoV-2, Anne Laboratory test result [facility] ([facility]) This nucleic acid amplification test was developed and its performance characteristics determined by [employer]. Nucleic acid amplification tests include RT-PCR [...] negative (not detected) result in this assay. Laboratory test finding (navigational concept) Laboratory test result [facility] ([facility]) ID Date Data Source [id number] 02/09/2021 12:30:00 PM EDT [facility] Name Value Range Interpretation Code Description Data Yadi rce(s) Supporting Document(s) SARS-CoV-2, ANNE Not Detected Not Detected [facility] This nucleic acid amplification test was developed and its performancecharacteristics determined by [employer]. Nucleic acidamplification tests include RT-PCR and TMA. This test has not beenFDA cleared or approved. This test has been authorized by FDA underan Emergency Use Authorization (EUA). This test is only authorizedfor the duration of time the declaration that circumstances existjustifying the authorization of the emergency use of in vitrodiagnostic tests for detection of SARS-CoV-2 virus and/or diagnosisof COVID-19 infection under section 564(b)(1) of the Act, 21 U.S.C.360bbb-3(b) (1), unless the authorization is terminated or revokedsooner.When diagnostic testing is negative, the possibility of a falsenegative result should be considered in the context of a patient'srecent exposures and the presence of clinical signs and symptomsconsistent with COVID- 19. An individual without symptoms of COVID-19and who is not shedding SARS-CoV-2 virus would expect to have anegative (not detected) result in this assay. SARS-CoV-2, ANNE 2 DAY TAT Performed [facility] ID Date Data Source [id number] 02/07/2021 01:35:00 PM EDT [facility] Name Value Range Interpretation Code Description Data Yadi rce(s) Supporting Document(s) SARS coronavirus 2 RNA Not Detected [facility] This lab was ordered by [facility] Charlie montero and reported by [facility]. ID Date Data Source [id number] 02/04/2021 01:31:00 PM EDT [facility] ([facility]) Name Value Range Interpretation Code Description Data Yadi rce(s) Supporting Document(s) Uibc 173 ug/dL 112-347 [facility] ([facility]) Is patient fasting? N Iron 58 ug/dL 42-135 [facility] ([facility]) Is patient fasting? N Iron Sat 25 % [facility] ([facility]) Is patient fasting? N Tibc 231 ug/dL 250-450 Below low normal [facility] ( [facility]) Is patient fasting? N ID Date Data Source [id number] 02/04/2021 01:31:00 PM EDT [facility] ([facility]) Name Value Range Interpretation Code Description Data Yadi rce(s) Supporting Document(s) Iron binding capacity [Mass/volume] in Serum or Plasma Laborator y test result [facility] ([facility]) Iron [Mass/volume] in Serum or Plasma Laboratory test result [facility] ([facility]) Ferritin [Mass/volume] in Serum or Plasma 63.5 ng/mL 3.0-105 [facility] ([facility]) Is patient fasting? N ID Date Data Source [id number] 02/04/2021 01:31:00 PM EDT [facility] ([facility]) Name Value Range Interpretation Code Description Data Yadi rce(s) Supporting Document(s) Comprehensive [employer] Laboratory test result [facility] ([facility]) Is patient fasting? N Sodium 138 meq/L 134-153 [facility] ([facility]) Is patient fasting? N Potassium 4.2 meq/L 3.6-5.0 [facility] ([facility]) Is patient fasting? N Chloride 104 meq/L 98-107 [facility] ([facility]) Is patient fasting? N Co2 24 meq/L 22-30 [facility] ([facility]) Is patient fasting? N Glucose 106 mg/dL 70-99 Above high normal [facility] ([facility]) Is patient fasting? N BUN 8 mg/dL 7-21 [facility] ([facility]) Is patient fasting? N Total Protein 6.8 g/dL 6.3-8.2 [facility] ([facility]) Is patient fasting? N Creatinine 0.6 mg/dL 0.7-1.5 Below low normal [facility] ( [facility]) Is patient fasting? N BUN/Creat 13 8-27 [facility] ([facility]) Is patient fasting? N Globulin 2.3 GM/DL 2.4-3.2 Below low normal [facility] ( [facility]) Is patient fasting? N Albumin 4.5 g/dL 3.9-5.0 [facility] ([facility]) Is patient fasting? N A/G Ratio 2.0 0.8-2.0 [facility] ([facility]) Is patient fasting? N Total Bili Laboratory test result 0.2-1.3 [facility] ([facility]) Is patient fasting? N Calcium 9.3 mg/dL 8.4-10.2 [facility] ([facility]) Is patient fasting? N Alkaline Phos 89 U/L 38-126 [facility] ([facility]) Is patient fasting? N SGPT/Alt 7 U/L 7-56 [facility] ([facility]) Is patient fasting? N Sgot/Ast 16 U/L 5-40 [facility] ([facility]) Is patient fasting? N Age 35 yrs [facility] ([facility]) Is patient fasting? N Anion Gap 10.0 mmol/L 8.0-16.0 [facility] ([facility]) Is patient fasting? N Afr Amer GFR Laboratory test result [facility] ([facility]) Is patient fasting? N Non-Aa GFR Laboratory test result [facility] ([facility]) Is patient fasting? N ID Date Data Source [id number] 02/04/2021 01:31:00 PM EDT [facility] ([facility]) Name Value Range Interpretation Code Description Data Yadi rce(s) Supporting Document(s) Calcidiol [Mass/volume] in Serum or Plasma 19 ng/mL [facility] ([facility]) Is patient fasting? N Cobalamin (Vitamin B12) [Mass/volume] in Serum or Plasma 204 pg/ mL 232-1245 Below low normal [facility] ([facility]) Is patient fasting? N ID Date Data Source [id number] 02/04/2021 01:31:00 PM EDT [facility] ([facility]) Name Value Range Interpretation Code Description Data Yadi rce(s) Supporting Document(s) WBC 10.1 10^3/uL 4.2-11.0 [facility] ([facility]) Is patient fasting? N CBC W/Automated Diff Laboratory test result [facility] ([facility]) Is patient fasting? N Hematocrit 41.2 % 37.0-47.0 [facility] ([facility]) Is patient fasting? N RBC 4.55 10^6/uL 4.20-5.40 [facility] ([facility]) Is patient fasting? N Hemoglobin 13.7 g/dL 12.0-16.0 [facility] ([facility]) Is patient fasting? N MCH 30.1 pg 27.0-34.0 [facility] ([facility]) Is patient fasting? N MCV 90.5 fL 81.0-101 [facility] ([facility]) Is patient fasting? N MCHC 33.3 g/dL 31.0-36.0 [facility] ([facility]) Is patient fasting? N Platelets 259 10^3/uL 150-450 [facility] ([facility]) Is patient fasting? N MPV 9.1 fL 7.4-10.4 [facility] ([facility]) Is patient fasting? N RDW 15.1 % 11.5-14.5 Above high normal [facility] ([facility]) Is patient fasting? N Lymph 34.6 % 25.0-40.0 [facility] ([facility]) Is patient fasting? N Neut 54.3 % 37.0-80.0 [facility] ([facility]) Is patient fasting? N Eos 2.8 % 0.0-7.0 [facility] ([facility]) Is patient fasting? N [facility] 7.5 % 3.0-8.0 [facility] ([facility]) Is patient fasting? N %NRBC 0.0 % 0.0-0.0 [facility] ([facility]) Is patient fasting? N Baso 0.4 % 0.0-2.5 [facility] ([facility]) Is patient fasting? N %Ig 0.4 % 0.0-0.0 Above high normal [facility] ([facility]) Is patient fasting? N #Neut 5.48 10^3/uL 2.00-6.90 [facility] ([facility]) Is patient fasting? N #Lymph 3.49 10^3/uL 0.60-3.40 Above high normal MEDEN T ([facility]) Is patient fasting? N #[facility] 0.76 10^3/uL 0.00-0.90 [facility] ([facility]) Is patient fasting? N #Eos 0.28 10^3/uL 0.00-0.70 [facility] ([facility]) Is patient fasting? N #Baso 0.04 10^3/uL 0.00-0.20 [facility] ([facility]) Is patient fasting? N #NRBC 0.00 10^3/uL 0.00-0.00 [facility] ([facility]) Is patient fasting? N #Ig 0.04 10^3/uL 0.00-0.10 [facility] ([facility]) Is patient fasting? N RBC Morph Laboratory test result [facility] ([facility]) Is patient fasting? N Manual Diff Laboratory test result M [facility] ([facility]) Is patient fasting? N ID Date Data Source [id number] 02/04/2021 06:29:00 PM EDT [facility] Name Value Range Interpretation Code Description Data Yadi rce(s) Supporting Document(s) COMPREHENSIVE METABOLIC PANEL [facility] COMPREHENSIVE METABOLIC PANEL Sodium [Moles/volume] in Serum or Plasma 138 mEq/L 134 - 153 [facility] Potassium [Moles/volume] in Serum or Plasma 4.2 mEq/L 3.6 - 5.0 [facility] Chloride [Moles/volume] in Serum or Plasma 104 mEq/L 98 - 107 [facility] Carbon dioxide, total [Moles/volume] in Serum or Plasma 24 MEQ/L 22 - 30 [facility] Glucose [Mass/volume] in Serum or Plasma 106 MG/DL 70 - 99 H [facility] BUN 8 MG/DL 7 - 21 [facility] al Creatinine [Mass/volume] in Serum or Plasma 0.6 MG/DL 0.7 - 1.5 L [facility] BUN/CREAT 13 8 - 27 [facility] al Protein [Mass/volume] in Serum or Plasma 6.8 G/DL 6.3 - 8.2 [facility] Albumin [Mass/volume] in Serum or Plasma 4.5 G/DL 3.9 - 5.0 [facility] Globulin [Mass/volume] in Serum by calculation 2.3 GM/DL 2.4 - 3.2 L [facility] A/G RATIO 2.0 0.8 - 2.0 [facility] Calcium [Mass/volume] in Serum or Plasma 9.3 MG/DL 8.4 - 10.2 [facility] Bilirubin.total [Mass/volume] in Serum or Plasma <0.7 MG/DL 0.2 - 1.3 [facility] Alkaline phosphatase [Enzymatic activity/volume] in Serum or Plasma 89 U/L 38 - 126 [facility] Aspartate aminotransferase [Enzymatic activity/volume] in Serum or Plasma 16 U/L 5 - 40 [facility] Alanine aminotransferase [Enzymatic activity/volume] in Seru m or Plasma 7 U/L 7 - 56 [facility] Anion gap 3 in Serum or Plasma 10.0 mmol/L 8.0 - 16.0 [facility] AGE 35 yrs [facility] Hospit al NON-AA GFR >60 mL/min [facility] Hosp ital AFR AMER GFR >60 mL/min [facility] Ho spital Male GFR In terprentation 20-49 yrs >60 mL/min Normal 50-59 yrs >56 mL/min Normal 60-69 yrs >49 mL/min Normal 70-79yrs >42 mL/min Normal 80 and above >35 mL/min Normal Female GFR Interpretation 20-39 yrs >60 mL/min Normal 40-49 yrs >58 mL/min Normal 50-59 yrs >51 mL/min Normal 60-69 yrs >45 mL/min Normal 70-79 yrs >39 mL/min Normal 80 and above >32 mL/min Normal ID Date Data Source [id number] 02/04/2021 06:00:00 PM EDT [facility] Name Value Range Interpretation Code Description Data Yadi rce(s) Supporting Document(s) Cobalamin (Vitamin B12) [Mass/volume] in Serum or Plasma 204 PG/ML 232 - 1245 L [facility] ID Date Data Source [id number] 02/04/2021 05:58:00 PM EDT [facility] Name Value Range Interpretation Code Description Data Yadi rce(s) Supporting Document(s) Calcidiol [Moles/volume] in Serum or Plasma 19 NG/ML [facility] VITAMIN-D(2 5HYDROXY) Deficiency: <=20 ng/ml Insufficiency: 21-29 ng/ml Preferred level: => 30 ng/ml ID Date Data Source [id number] 02/04/2021 05:58:00 PM EDT [facility] Name Value Range Interpretation Code Description Data Yadi rce(s) Supporting Document(s) Ferritin [Mass/volume] in Serum or Plasma 63.5 ng/mL 3.0 - 105 [facility] ID Date Data Source [id number] 02/04/2021 05:36:00 PM EDT [facility] Name Value Range Interpretation Code Description Data Yadi rce(s) Supporting Document(s) Iron [Mass/volume] in Serum or Plasma 58 UG/DL 42 - 135 [facility] Iron binding capacity.unsaturated [Mass/volume] in Serum or Plasma 173 UG/DL 112 - 347 [facility] Iron binding capacity [Mass/volume] in Serum or Plasma 231 ug/dL 250 - 450 L [facility] Iron saturation [Mass Fraction] in Serum or Plasma 25 % [facility] ID Date Data Source [id number] 02/04/2021 05:32:00 PM EDT [facility] Name Value Range Interpretation Code Description Data Yadi rce(s) Supporting Document(s) CBC W/AUTOMATED DIFF [facility] COMPLETE BLOOD COUNT Leukocytes [#/volume] in Blood by Automated count 10.1 10^3/uL 4.2 - 11.0 [facility] Erythrocytes [#/volume] in Blood by Automated count 4.55 10^6/uL 4. 20 - 5.40 [facility] Hemoglobin [Mass/volume] in Blood 13.7 g/dL 12.0 - 16.0 [facility] Hematocrit [Volume Fraction] of Blood by Automated count 41.2 % 3 7.0 - 47.0 [facility] Erythrocyte mean corpuscular volume [Entitic volume] by Auto mated count 90.5 fL 81.0 - 101 [facility] Erythrocyte mean corpuscular hemoglobin [Entitic mass] by Automated count 30.1 pg 27.0 - 34.0 [facility] Erythrocyte mean corpuscular hemoglobin concentration [Mass/volume] by Automated count 33.3 g/dL 31.0 - 36.0 [facility] Erythrocyte distribution width [Ratio] by Automated count 15.1 % 11.5 - 14.5 H [facility] Platelets [#/volume] in Blood by Automated count 259 10^3/uL 150 - 45 0 [facility] Platelet mean volume [Entitic volume] in Blood by Automated count 9.1 fL 7.4 - 10.4 [facility] Neutrophils/100 leukocytes in Blood by Automated count 54.3 % 37. 0 - 80.0 [facility] Lymphocytes/100 leukocytes in Blood by Manual count 34.6 % 25.0 - 40.0 [facility] Monocytes/100 leukocytes in Blood by Automated count 7.5 % 3.0 - 8.0 [facility] Eosinophils/100 leukocytes in Blood by Automated count 2.8 % 0.0 - 7.0 [facility] Basophils/100 leukocytes in Blood by Automated count 0.4 % 0.0 - 2.5 [facility] %IG 0.4 % 0.0 - 0.0 [facility] 0.0 % 0.0 - 0.0 [facility] al Neutrophils [#/volume] in Blood by Automated count 5.48 10^3/uL 2.00 - 6.90 [facility] Lymphocytes [#/volume] in Blood by Automated count 3.49 10^3/uL 0.60 - 3.40 H [facility] Monocytes [#/volume] in Blood by Automated count 0.76 10^3/uL 0.00 - 0.90 [facility] Eosinophils [#/volume] in Blood by Automated count 0.28 10^3/uL 0.00 - 0.70 [facility] Basophils [#/volume] in Blood by Automated count 0.04 10^3/uL 0.00 - 0.20 [facility] #IG 0.04 10^3/uL 0.00 - 0.10 [facility] ospital #NRBC 0.00 10^3/uL 0.00 - 0.00 [facility] H ospital MANUAL DIFF NOT INDICATED [facility] RBC MORPH NOT INDICATED [facility] spital ID Date Data Source [id number] 01/27/2021 12:38:00 PM EDT [facility] ([facility]) Name Value Range Interpretation Code Description Data Yadi rce(s) Supporting Document(s) Thyroxine (T4) free [Mass/volume] in Serum or Plasma 1.27 ng/dL 0.93- 1.70 [facility] ([facility]) Thyrotropin [Units/volume] in Serum or Plasma 0.34 uIU/mL 0. 47-5.01 Below low normal [facility] ([facility]) ID Date Data Source [id number] 01/27/2021 12:38:00 PM EDT [facility] ([facility]) Name Value Range Interpretation Code Description Data Yadi rce(s) Supporting Document(s) Thyroxine (T4) free [Mass/volume] in Serum or Plasma 1.27 ng/dL 0.93- 1.70 [facility] ([facility]) Thyrotropin [Units/volume] in Serum or Plasma 0.34 uIU/mL 0.47-5.01 [facility] ([facility]) ID Date Data Source [id number] 01/27/2021 08:25:00 PM EDT [facility] Name Value Range Interpretation Code Description Data Yadi rce(s) Supporting Document(s) Thyrotropin [Units/volume] in Serum or Plasma by Detec tion limit <= 0.05 mIU/L 0.34 uIU/mL 0.47 - 5.01 L [facility] ID Date Data Source [id number] 01/27/2021 01:42:00 PM EDT [facility] Name Value Range Interpretation Code Description Data Yadi rce(s) Supporting Document(s) Thyroxine (T4) free index in Serum or Plasma by calculation 1.27 NG/DL 0.93 - 1.70 [facility] ID Date Data Source [id number] 12/13/2020 03:37:00 PM EDT [facility] ([facility]) Name Value Range Interpretation Code Description Data Yadi rce(s) Supporting Document(s) Coronavirus Covid-19 Laboratory test result [facility] ([facility]) This nucleic acid amplification test was developed and its performance characteristics determined by [employer]. Nucleic acid amplification tests include RT-PCR [...] negative (not detected) result in this assay. ID Date Data Source [id number] 12/13/2020 03:37:00 PM EDT [facility] ([facility]) Name Value Range Interpretation Code Description Data Yadi rce(s) Supporting Document(s) Influenza virus A RNA [Presence] in Unsp ecified specimen by Probe and target amplification method Laboratory test result [facility] ([facility]) Influenza virus B RNA [Presence] in Unsp ecified specimen by Probe and target amplification method Laboratory test result [facility] ([facility]) ID Date Data Source [id number] 12/13/2020 03:37:00 PM EDT [facility] Name Value Range Interpretation Code Description Data Yadi rce(s) Supporting Document(s) SARS coronavirus 2 RNA Not Detected [facility] This lab was ordered by [facility] kylah and reported by [email or web address]. ID Date Data Source [id number] 12/16/2020 03:20:00 PM EDT [facility] Name Value Range Interpretation Code Description Data Yadi rce(s) Supporting Document(s) SARS-CoV-2, ANNE Not Detected Not Detected [facility] This nucleic acid amplification test was developed and its performancecharacteristics determined by [employer]. Nucleic acidamplification tests include RT-PCR and TMA. This test has not beenFDA cleared or approved. This test has been authorized by FDA underan Emergency Use Authorization (EUA). This test is only authorizedfor the duration of time the declaration that circumstances existjustifying the authorization of the emergency use of in vitrodiagnostic tests for detection of SARS-CoV-2 virus and/or diagnosisof COVID-19 infection under section 564(b)(1) of the Act, 21 U.S.C.360bbb-3(b) (1), unless the authorization is terminated or revokedsooner.When diagnostic testing is negative, the possibility of a falsenegative result should be considered in the context of a patient'srecent exposures and the presence of clinical signs and symptomsconsistent with COVID- 19. An individual without symptoms of COVID-19and who is not shedding SARS-CoV-2 virus would expect to have anegative (not detected) result in this assay. ID Date Data Source [id number] 11/21/2020 03:43:00 PM EDT [facility] ([facility]) Name Value Range Interpretation Code Description Data Yadi rce(s) Supporting Document(s) Sars-CoV-2, Anne Laboratory test result [facility] ([facility]) This nucleic acid amplification test was developed and its performance characteristics determined by [employer]. Nucleic acid amplification tests include RT-PCR [...] negative (not detected) result in this assay. Laboratory test finding (navigational concept) Laboratory test result [facility] ([facility]) ID Date Data Source [id number] 11/21/2020 03:43:00 PM EDT [facility] Name Value Range Interpretation Code Description Data Yadi rce(s) Supporting Document(s) SARS coronavirus 2 RNA Not Detected [facility] This lab was ordered by [facility] Charlie montero and reported by [email or web address]. ID Date Data Source [id number] 11/24/2020 07:21:00 AM EDT [facility] Name Value Range Interpretation Code Description Data Yadi rce(s) Supporting Document(s) SARS-CoV-2, ANNE Not Detected Not Detected [facility] This nucleic acid amplification test was developed and its performancecharacteristics determined by [employer]. Nucleic acidamplification tests include RT-PCR and TMA. This test has not beenFDA cleared or approved. This test has been authorized by FDA underan Emergency Use Authorization (EUA). This test is only authorizedfor the duration of time the declaration that circumstances existjustifying the authorization of the emergency use of in vitrodiagnostic tests for detection of SARS-CoV-2 virus and/or diagnosisof COVID-19 infection under section 564(b)(1) of the Act, 21 U.S.C.360bbb-3(b) (1), unless the authorization is terminated or revokedsooner.When diagnostic testing is negative, the possibility of a falsenegative result should be considered in the context of a patient'srecent exposures and the presence of clinical signs and symptomsconsistent with COVID- 19. An individual without symptoms of COVID-19and who is not shedding SARS-CoV-2 virus would expect to have anegative (not detected) result in this assay. SARS-CoV-2, ANNE 2 DAY TAT Performed [facility] ID Date Data Source [id number] 11/21/2020 03:43:00 PM EDT [facility] ([facility]) Name Value Range Interpretation Code Description Data Yadi rce(s) Supporting Document(s) Covid-19 Laboratory test result [facility] ([facility]) ID Date Data Source [id number] 10/18/2020 01:04:00 PM EST [facility] ([facility]) Name Value Range Interpretation Code Description Data Yadi rce(s) Supporting Document(s) [place] [Mass/volume] in Serum or Plasma 0.5 mmol/L 0.6-1.2 Below low normal [facility] ([facility]) <content>Detection Limit = 0.1</content>
<content><0.1 indicates None Detected</content>
<content></content> ID Date Data Source [id number] 10/18/2020 01:04:00 PM EST [facility] ([facility]) Name Value Range Interpretation Code Description Data Yadi rce(s) Supporting Document(s) Cholesterol 218 mg/dL 131-200 Above high normal [facility] ([facility]) Is patient fasting? N Cve Panel Laboratory test result [facility] ([facility]) LIPID PANEL Triglycerides 89 mg/dL 35-160 [facility] ([facility]) Is patient fasting? N HDL 51 mg/dL 29-86 [facility] ([facility]) Is patient fasting? N LDL 170 mg/dL 65-175 [facility] ([facility]) Is patient fasting? N Risk Factor 4.3 3.2-4.4 [facility] ([facility]) Is patient fasting? N LDL/HDL 3.33 1.47-3.22 Above high normal [facility] ([facility]) CVE RISK CHOL/HDL LDL/HDL MEN: 1/2 AVERAGE 3.43 1.00 AVERAGE 4.97 3.55 2X AVERAGE 9.55 6.25 3X AVERAGE 23.99 7.99 WOMEN: 1/2 AVERAGE 3.27 1.47 AVERAGE 4.44 3.22 2X AVERAGE 7.05 5.03 3X AVERAGE 11.04 6.14 ID Date Data Source [id number] 10/18/2020 01:04:00 PM EST [facility] ([facility]) Name Value Range Interpretation Code Description Data Yadi rce(s) Supporting Document(s) Hemoglobin A1c/Hemoglobin.total in Blood 5.1 % 4.4-6.1 [facility] ([facility]) {A1] {HB] ID Date Data Source [id number] 10/18/2020 01:04:00 PM EST [facility] ([facility]) Name Value Range Interpretation Code Description Data Yadi rce(s) Supporting Document(s) Comprehensive [employer] Laboratory test result [facility] ([facility]) COMPREHENSIVE METABOLIC PANEL Sodium 139 meq/L 134-153 [facility] ([facility]) Is patient fasting? N Potassium 4.1 meq/L 3.6-5.0 [facility] ([facility]) Is patient fasting? N Chloride 105 meq/L 98-107 [facility] ([facility]) Is patient fasting? N Co2 26 meq/L 22-30 [facility] ([facility]) Is patient fasting? N Glucose 99 mg/dL 70-99 [facility] ([facility]) Is patient fasting? N BUN 13 mg/dL 7-21 [facility] ([facility]) Is patient fasting? N Creatinine 0.6 mg/dL 0.7-1.5 Below low normal [facility] ( [facility]) Is patient fasting? N Total Protein 6.7 g/dL 6.3-8.2 [facility] ([facility]) Is patient fasting? N BUN/Creat 22 8-27 [facility] ([facility]) Is patient fasting? N Albumin 4.4 g/dL 3.9-5.0 [facility] ([facility]) Is patient fasting? N Globulin 2.3 GM/DL 2.4-3.2 Below low normal [facility] ( [facility]) Is patient fasting? N A/G Ratio 1.9 0.8-2.0 [facility] ([facility]) Is patient fasting? N Calcium 9.1 mg/dL 8.4-10.2 [facility] ([facility]) Is patient fasting? N Total Bili Laboratory test result 0.2-1.3 [facility] ([facility]) Is patient fasting? N Alkaline Phos 67 U/L 38-126 [facility] ([facility]) Is patient fasting? N Sgot/Ast 12 U/L 5-40 [facility] ([facility]) Is patient fasting? N Anion Gap 8.0 mmol/L 8.0-16.0 [facility] ([facility]) Is patient fasting? N SGPT/Alt 10 U/L 7-56 [facility] ([facility]) Is patient fasting? N Age 35 yrs [facility] ([facility]) Is patient fasting? N Non-Aa GFR Laboratory test result [facility] ([facility]) Is patient fasting? N Afr Amer GFR Laboratory test result [facility] ([facility]) Male GFR Interprentation 20-49 yrs >60 mL/min Normal 50-59 yrs >56 mL/min Normal 60-69 yrs >49 mL/min Normal 70-79yrs >42 mL/min Normal 80 and above >35 mL/min Normal Female GFR Interpretation 20-39 yrs >60 mL/min Normal 40-49 yrs >58 mL/min Normal 50-59 yrs >51 mL/min Normal 60-69 yrs >45 mL/min Normal 70-79 yrs >39 mL/min Normal 80 and above >32 mL/min Normal ID Date Data Source [id number] 10/18/2020 01:04:00 PM EST [facility] ([facility]) Name Value Range Interpretation Code Description Data Yadi rce(s) Supporting Document(s) CBC W/Automated Diff Laboratory test result [facility] ([facility]) COMPLETE BLOOD COUNT WBC 11.1 10^3/uL 4.2-11.0 Above high normal [facility] T ([facility]) Is patient fasting? N RBC 4.52 10^6/uL 4.20-5.40 [facility] ([facility]) Is patient fasting? N Hemoglobin 13.5 g/dL 12.0-16.0 [facility] ([facility]) Is patient fasting? N Hematocrit 40.8 % 37.0-47.0 [facility] ([facility]) Is patient fasting? N MCV 90.3 fL 81.0-101 [facility] ([facility]) Is patient fasting? N MCH 29.9 pg 27.0-34.0 [facility] ([facility]) Is patient fasting? N RDW 13.1 % 11.5-14.5 [facility] ([facility]) Is patient fasting? N MCHC 33.1 g/dL 31.0-36.0 [facility] ([facility]) Is patient fasting? N Platelets 239 10^3/uL 150-450 [facility] ([facility]) Is patient fasting? N MPV 8.3 fL 7.4-10.4 [facility] ([facility]) Is patient fasting? N Neut 49.1 % 37.0-80.0 [facility] ([facility]) Is patient fasting? N Lymph 40.2 % 25.0-40.0 Above high normal [facility] ([facility]) Is patient fasting? N Eos 2.8 % 0.0-7.0 [facility] ([facility]) Is patient fasting? N [facility] 7.2 % 3.0-8.0 [facility] ([facility]) Is patient fasting? N Baso 0.5 % 0.0-2.5 [facility] ([facility]) Is patient fasting? N %Ig 0.2 % 0.0-0.0 Above high normal [facility] ([facility]) Is patient fasting? N %NRBC 0.0 % 0.0-0.0 [facility] ([facility]) Is patient fasting? N #Lymph 4.46 10^3/uL 0.60-3.40 Above high normal [facility] T ([facility]) Is patient fasting? N #Neut 5.46 10^3/uL 2.00-6.90 [facility] ([facility]) Is patient fasting? N #[facility] 0.80 10^3/uL 0.00-0.90 [facility] ([facility]) Is patient fasting? N #Baso 0.05 10^3/uL 0.00-0.20 [facility] ([facility]) Is patient fasting? N #Eos 0.31 10^3/uL 0.00-0.70 [facility] ([facility]) Is patient fasting? N #Ig 0.02 10^3/uL 0.00-0.10 [facility] ([facility]) Is patient fasting? N #NRBC 0.00 10^3/uL 0.00-0.00 [facility] ([facility]) Is patient fasting? N Manual Diff Laboratory test result M [facility]ENT ([facility]) Is patient fasting? N RBC Morph Laboratory test result [facility] ([facility]) Is patient fasting? N ID Date Data Source [id number] 10/19/2020 04:29:00 PM EST [facility] Name Value Range Interpretation Code Description Data Yadi rce(s) Supporting Document(s) [place] [Moles/volume] in Serum or Plasma 0.5 mmol/L 0.6-1.2 L [facility] Detection Limit = 0.1 <0.1 indicates None Detected ID Date Data Source [id number] 10/18/2020 02:11:00 PM EST [facility] Name Value Range Interpretation Code Description Data Yadi rce(s) Supporting Document(s) CVE PANEL [facility] al LIPID PANEL Cholesterol [Mass/volume] in Serum or Plasma 218 MG/DL 131 - 200 H [facility] Deprecated Triglyceride [Mass/volume] in Serum or Plasma 89 MG/DL 3 5 - 160 [facility] HDL 51 MG/DL 29 - 86 [facility] al Cholesterol in LDL [Mass/volume] in Serum or Plasma by Direc t assay 170 mg/dL 65 - 175 [facility] Cholesterol.total/Cholesterol in HDL [Mass Ratio] in Serum o r Plasma 4.3 3.2 - 4.4 [facility] LDL/HDL 3.33 1.47 - 3.22 H [facility] ital CVE RISK CHOL/HDL LDL/HDLMEN: 1/2 AVERAGE 3.43 1.00 AVERAGE 4.97 3.55 2X AVERAGE 9.55 6.25 3X AVERAGE 23.99 7.99WOMEN: 1/2 AVERAGE 3.27 1.47 AVERAGE 4.44 3.22 2X AVERAGE 7.05 5.03 3X AVERAGE 11.04 6.14 ID Date Data Source [id number] 10/18/2020 02:11:00 PM EST [facility] Name Value Range Interpretation Code Description Data Yadi rce(s) Supporting Document(s) COMPREHENSIVE METABOLIC PANEL [facility] COMPREHENSIVE METABOLIC PANEL Sodium [Moles/volume] in Serum or Plasma 139 mEq/L 134 - 153 [facility] Potassium [Moles/volume] in Serum or Plasma 4.1 mEq/L 3.6 - 5.0 [facility] Chloride [Moles/volume] in Serum or Plasma 105 mEq/L 98 - 107 [facility] Carbon dioxide, total [Moles/volume] in Serum or Plasma 26 MEQ/L 22 - 30 [facility] Glucose [Mass/volume] in Serum or Plasma 99 MG/DL 70 - 99 [facility] BUN 13 MG/DL 7 - 21 [facility] al Creatinine [Mass/volume] in Serum or Plasma 0.6 MG/DL 0.7 - 1.5 L [facility] BUN/CREAT 22 8 - 27 [facility] al Protein [Mass/volume] in Serum or Plasma 6.7 G/DL 6.3 - 8.2 [facility] Albumin [Mass/volume] in Serum or Plasma 4.4 G/DL 3.9 - 5.0 [facility] Globulin [Mass/volume] in Serum by calculation 2.3 GM/DL 2.4 - 3.2 L [facility] A/G RATIO 1.9 0.8 - 2.0 [facility] Calcium [Mass/volume] in Serum or Plasma 9.1 MG/DL 8.4 - 10.2 [facility] Bilirubin.total [Mass/volume] in Serum or Plasma <0.7 MG/DL 0.2 - 1.3 [facility] Alkaline phosphatase [Enzymatic activity/volume] in Serum or Plasma 67 U/L 38 - 126 [facility] Aspartate aminotransferase [Enzymatic activity/volume] in Serum or Plasma 12 U/L 5 - 40 [facility] Alanine aminotransferase [Enzymatic activity/volume] in Seru m or Plasma 10 U/L 7 - 56 [facility] Anion gap 3 in Serum or Plasma 8.0 mmol/L 8.0 - 16.0 [facility] AGE 35 yrs [facility] al NON-AA GFR >60 mL/min [facility] ital AFR AMER GFR >60 mL/min [facility] Ho spital Male GFR In terprentation 20-49 yrs >60 mL/min Normal 50-59 yrs >56 mL/min Normal 60-69 yrs >49 mL/min Normal 70-79yrs >42 mL/min Normal 80 and above >35 mL/min Normal Female GFR Interpretation 20-39 yrs >60 mL/min Normal 40-49 yrs >58 mL/min Normal 50-59 yrs >51 mL/min Normal 60-69 yrs >45 mL/min Normal 70-79 yrs >39 mL/min Normal 80 and above >32 mL/min Normal ID Date Data Source [id number] 10/18/2020 01:43:00 PM EST [facility] Name Value Range Interpretation Code Description Data Yadi rce(s) Supporting Document(s) Hemoglobin A1c/Hemoglobin.total in Blood 5.1 % 4.4 - 6.1 [facility] {A1]{HB] ID Date Data Source [id number] 10/18/2020 01:22:00 PM EST [facility] Name Value Range Interpretation Code Description Data Yadi [facility](s) Supporting Document(s) CBC W/AUTOMATED DIFF [facility] COMPLETE BLOOD COUNT Leukocytes [#/volume] in Blood by Automated count 11.1 10^3/uL 4.2 - 11.0 H [facility] Erythrocytes [#/volume] in Blood by Automated count 4.52 10^6/uL 4. 20 - 5.40 [facility] Hemoglobin [Mass/volume] in Blood 13.5 g/dL 12.0 - 16.0 [facility] Hematocrit [Volume Fraction] of Blood by Automated count 40.8 % 3 7.0 - 47.0 [facility] Erythrocyte mean corpuscular volume [Entitic volume] by Auto mated count 90.3 fL 81.0 - 101 [facility] Erythrocyte mean corpuscular hemoglobin [Entitic mass] by Automated count 29.9 pg 27.0 - 34.0 [facility] Erythrocyte mean corpuscular hemoglobin concentration [Mass/volume] by Automated count 33.1 g/dL 31.0 - 36.0 [facility] Erythrocyte distribution width [Ratio] by Automated count 13.1 % 11.5 - 14.5 [facility] Platelets [#/volume] in Blood by Automated count 239 10^3/uL 150 - 45 0 [facility] Platelet mean volume [Entitic volume] in Blood by Automated count 8.3 fL 7.4 - 10.4 [facility] Neutrophils/100 leukocytes in Blood by Automated count 49.1 % 37. 0 - 80.0 [facility] Lymphocytes/100 leukocytes in Blood by Manual count 40.2 % 25.0 - 40.0 H [facility] Monocytes/100 leukocytes in Blood by Automated count 7.2 % 3.0 - 8.0 [facility] Eosinophils/100 leukocytes in Blood by Automated count 2.8 % 0.0 - 7.0 [facility] Basophils/100 leukocytes in Blood by Automated count 0.5 % 0.0 - 2.5 [facility] %IG 0.2 % 0.0 - 0.0 H [facility] al %NRBC 0.0 % 0.0 - 0.0 [facility] al Neutrophils [#/volume] in Blood by Automated count 5.46 10^3/uL 2.00 - 6.90 [facility] Lymphocytes [#/volume] in Blood by Automated count 4.46 10^3/uL 0.60 - 3.40 H [facility] Monocytes [#/volume] in Blood by Automated count 0.80 10^3/uL 0.00 - 0.90 [facility] Eosinophils [#/volume] in Blood by Automated count 0.31 10^3/uL 0.00 - 0.70 [facility] Basophils [#/volume] in Blood by Automated count 0.05 10^3/uL 0.00 - 0.20 [facility] #IG 0.02 10^3/uL 0.00 - 0.10 [facility] ospital #NRBC 0.00 10^3/uL 0.00 - 0.00 [facility] ospital MANUAL DIFF NOT INDICATED [facility] RBC MORPH NOT INDICATED [facility] spital ID Date Data Source [id number] 10/01/2020 03:36:00 PM EST [facility] ([facility]) Name Value Range Interpretation Code Description Data Yadi rce(s) Supporting Document(s) Ferritin [Mass/volume] in Serum or Plasma 66 ng/mL 8-252 Normal (applies to non- numeric results) [facility] ([facility]) <content>note:<nlbl:demographic_[email or web address]> </content>
<content></content> ID Date Data Source [id number] 10/01/2020 03:36:00 PM EST [facility] ([facility]) Name Value Range Interpretation Code Description Data Yadi rce(s) Supporting Document(s) Iron (Fe) 34 ug/dL 50-170 Below low normal [facility] ( [facility]) Percent Saturation 13.1 % 13.2-45.0 Below low normal [facility] ([facility]) Total Iron Binding Capacity 259 ug/dL 250-450 Norm al (applies to non-numeric results) [facility] ([facility]) ID Date Data Source [id number] 10/01/2020 03:36:00 PM EST [facility] ([facility]) Name Value Range Interpretation Code Description Data Yadi rce(s) Supporting Document(s) Red Blood Count 4.42 10 4.00-5.40 Normal (applies to non-numeric results) [facility] ([facility]) White Blood Count 14.5 10 4.0-10.0 Above high normal [facility] ([facility]) Hematocrit 41.2 % 36.0-47.0 Normal (applies to non-numeric resul ts) [facility] ([facility]) Hemoglobin 13.2 g/dL 12.0-15.5 Normal (applies to non-numeric resul ts) [facility] ([facility]) Mean Corpuscular Volume 93.2 fl 80.0-96.0 Normal ( applies to non-numeric results) [facility] ([facility]) Mean Corpuscular Hemoglobin 29.9 pg 27.0-33.0 Norm al (applies to non-numeric results) [facility] ([facility]) Mean Corpuscular HGB Conc 32.0 g/dL 32.0-36.5 Normal (applies to non-numeric results) [facility] ([facility]) Red Cell Distribution Width 13.0 % 11.5-14.5 Norm al (applies to non-numeric results) [facility] ([facility]) Platelet Count, Automated 274 10 150-450 Normal (applies to non-numeric results) [facility] ([facility]) Lymph % 28.4 % 24.0-44.0 Normal (applies to non-numeric resul ts) [facility] ([facility]) Neutrophils % 63.4 % 36.0-66.0 Normal (applies to non-numeric re sults) [facility] ([facility]) Eos % 2.2 % 0.0-3.0 Normal (applies to non-numeric resul ts) [facility] ([facility]) [facility] % 5.3 % 0.0-5.0 Above high normal [facility] ([facility]) Baso % 0.3 % 0.0-1.0 Normal (applies to non-numeric resul ts) [facility] ([facility]) Immature Granulocyte % 0.4 % 0-3.0 Normal (applies to non-n umeric results) [facility] ([facility]) Nucleated Red Blood Cell % 0.0 % 0-0 Normal (applies to n on-numeric results) [facility] ([facility]) Neutrophils # 9.2 10 1.5-8.5 Above high normal MEDE NT ([facility]) Lymph # 4.1 10 1.5-5.0 Normal (applies to non-numeric resul ts) [facility] ([facility]) [facility] # 0.8 10 0.0-0.8 Normal (applies to non-numeric resul ts) [facility] ([facility]) Eos # 0.3 10 0.0-0.5 Normal (applies to non-numeric resul ts) [facility] ([facility]) Baso # 0.1 10 0.0-0.2 Normal (applies to non-numeric resul ts) [facility] ([facility]) ID Date Data Source [id number] 09/17/2020 01:03:00 PM EST [facility] ([facility]) Name Value Range Interpretation Code Description Data Yadi rce(s) Supporting Document(s) Sars-CoV-2, Anne Laboratory test result [facility] ([facility]) This nucleic acid amplification test was developed and its performance characteristics determined by [employer]. Nucleic acid amplification tests include RT-PCR [...] negative (not detected) result in this assay. Laboratory test finding (navigational concept) Laboratory test result [facility] ([facility]) ID Date Data Source [id number] 09/17/2020 01:03:00 PM EST [facility] Name Value Range Interpretation Code Description Data Yadi rce(s) Supporting Document(s) SARS coronavirus 2 RNA Not Detected [facility] This lab was ordered by [facility] kylah and reported by [email or web address]. ID Date Data Source [id number] 09/19/2020 05:20:00 PM EST [facility] Name Value Range Interpretation Code Description Data Yadi rce(s) Supporting Document(s) SARS-CoV-2, ANNE Not Detected Not Detected [facility] This nucleic acid amplification test was developed and its performancecharacteristics determined by [facility]. Nucleic acidamplification tests include RT-PCR and TMA. This test has not beenFDA cleared or approved. This test has been authorized by FDA underan Emergency Use Authorization (EUA). This test is only authorizedfor the duration of time the declaration that circumstances existjustifying the authorization of the emergency use of in vitrodiagnostic tests for detection of SARS-CoV-2 virus and/or diagnosisof COVID-19 infection under section 564(b)(1) of the Act, 21 U.S.C.360bbb-3(b) (1), unless the authorization is terminated or revokedsooner.When diagnostic testing is negative, the possibility of a falsenegative result should be considered in the context of a patient'srecent exposures and the presence of clinical signs and symptomsconsistent with COVID- 19. An individual without symptoms of COVID-19and who is not shedding SARS-CoV-2 virus would expect to have anegative (not detected) result in this assay. ORDER COVID 19 2 DAY YES [facility] ID Date Data Source [id number] 09/17/2020 01:03:00 PM EST [facility] ([facility]) Name Value Range Interpretation Code Description Data Yadi rce(s) Supporting Document(s) Laboratory test finding (navigational concept) Laboratory test result [facility] ([facility]) ID Date Data Source [id number] 08/12/2020 03:55:00 PM EST [facility] ([facility]) Name Value Range Interpretation Code Description Data Yadi rce(s) Supporting Document(s) PDF Laboratory test result [facility] ([facility]) {DIAGNOSIS: F12.20~{MEDICATIONS/DECLARE D: IBUPROFEN, LITHIUM, MAXALT~{PRESCRIPTION INFO: PROPR Laboratory test finding (navigational concept) Laboratory test result [facility] ([facility]) {DIAGNOSIS: F12.20~{MEDICATIONS/DECLARE D: IBUPROFEN, LITHIUM, MAXALT~{PRESCRIPTION INFO: PROPR ID Date Data Source [id number] 08/18/2020 12:10:00 PM [facility] Name Value Range Interpretation Code Description Data Yadi rce(s) Supporting Document(s) Drugs identified in Urine FINAL [facility] TOXASSURE SELECT 13 (MW) Test Result Flag UnitsDrug Present not Declared for Prescription Verification Carboxy-THC 76 UNEXPECTED ng/mg creat Carboxy-THC is a metabolite of tetrahydrocannabinol ( THC). Source of THC is most commonly illicit, but THC is also present in a scheduled prescription medication. T est Result Flag Units Ref Range Creatinine 173 mg/dL >=20 Declared Medications: The flagging and interpretation on this report are based on the following declared medications. Unexpected results may arise from inaccuracies in the declared medications. Note: The testing scope of this panel does not include following reported medications: Cariprazine (Vraylar) Ibuprofen [place] Propranolol Rizatriptan (Maxalt) For clinical consultation, please call . Report . [facility] ID Date Data Source [id number] 06/18/2020 11:46:00 AM EDT [facility] ([facility]) Name Value Range Interpretation Code Description Data Yadi rce(s) Supporting Document(s) Thyrotropin [Units/volume] in Serum or Plasma 0.44 uIU/mL 0. 47-5.01 Below low normal [facility] ([facility]) Thyroxine (T4) free [Mass/volume] in Serum or Plasma 1.72 ng/dL 0.93-1.70 Above high normal [facility] ([facility]) Triiodothyronine (T3) [Mass/volume] in Serum or Plasma 130 ng/dL 71- 180 [facility] ([facility]) Thyrotropin receptor Ab [Units/volume] in Serum Laboratory t est result 0.00-1.75 [facility] ([facility]) Thyroid stimulating immunoglobulins actual/normal in [facility] Laboratory test result 0.00-0.55 [facility] ([facility]) ID Date Data Source [id number] 06/18/2020 11:46:00 AM EDT [facility] ([facility] ) Name Value Range Interpretation Code Description Data Yadi rce(s) Supporting Document(s) Triiodothyronine (T3) [Mass/volume] in Serum or Plasma 130 ng/dL 71- 180 [facility] ([facility]) Thyrotropin [Units/volume] in Serum or Plasma 0.44 uIU/mL 0.47-5.01 [facility] ([facility] ) Thyroxine (T4) free [Mass/volume] in Serum or Plasma 1.72 ng/dL 0.93- 1.70 [facility] ([facility]) Thyrotropin receptor Ab [Units/volume] in Serum Laboratory t est result 0.00-1.75 [facility] ([facility]) Thyroid-Stimulating Immunoglobulin (Tsi) Laboratory test result 0.00- 0.55 [facility] ([facility]) ID Date Data Source [id number] 06/22/2020 01:58:00 PM EDT [facility] Name Value Range Interpretation Code Description Data Yadi rce(s) Supporting Document(s) Thyrotropin receptor Ab [Units/volume] in Serum <1.10 IU/L 0.00-1.75 [facility] ID Date Data Source [id number] 06/20/2020 07:36:00 AM EDT [facility] Name Value Range Interpretation Code Description Data Yadi rce(s) Supporting Document(s) Thyroid stimulating immunoglobulins [Units/volume] in Serum <0.10 IU/L 0.00-0.55 [facility] ID Date Data Source [id number] 06/19/2020 08:27:00 AM EDT [facility] Name Value Range Interpretation Code Description Data Yadi rce(s) Supporting Document(s) Triiodothyronine (T3) [Mass/volume] in Serum or Plasma 130 ng/dL 71- 180 [facility] ID Date Data Source [id number] 06/18/2020 12:36:00 PM EDT [facility] Name Value Range Interpretation Code Description Data Yadi rce(s) Supporting Document(s) Thyroxine (T4) free index in Serum or Plasma by calculation 1.72 NG/DL 0.93 - 1.70 H [facility] ID Date Data Source [id number] 06/18/2020 12:36:00 PM EDT [facility] Name Value Range Interpretation Code Description Data Yadi rce(s) Supporting Document(s) Thyrotropin [Units/volume] in Serum or Plasma by Detec tion limit <= 0.05 mIU/L 0.44 uIU/mL 0.47 - 5.01 L [facility] ID Date Data Source [id number] 06/04/2020 02:00:00 PM EDT [facility] ([facility]) Name Value Range Interpretation Code Description Data Yadi rce(s) Supporting Document(s) Thyrotropin [Units/volume] in Serum or Plasma 0.26 uIU/mL 0. 47-5.01 Below low normal [facility] ([facility]) Thyroxine (T4) free [Mass/volume] in Serum or Plasma 1.73 ng/dL 0.93-1.70 Above high normal [facility] ([facility]) Thyroid stimulating immunoglobulins actual/normal in [facility] Laboratory test result 0.00-0.55 [facility] ([facility]) ID Date Data Source [id number] 06/04/2020 02:00:00 PM EDT [facility] ([facility] ) Name Value Range Interpretation Code Description Data Yadi rce(s) Supporting Document(s) Thyrotropin [Units/volume] in Serum or Plasma 0.26 uIU/mL 0.47-5.01 [facility] ([facility] ) Thyroid-Stimulating Immunoglobulin (Tsi) Laboratory test result 0.00- 0.55 [facility] ([facility]) Thyroxine (T4) free [Mass/volume] in Serum or Plasma 1.73 ng/dL 0.93- 1.70 [facility] ([facility]) ID Date Data Source [id number] 06/07/2020 01:50:00 PM EDT [facility] Name Value Range Interpretation Code Description Data Yadi rce(s) Supporting Document(s) Thyroid stimulating immunoglobulins [Units/volume] in Serum <0.10 IU/L 0.00-0.55 [facility] ID Date Data Source [id number] 06/04/2020 03:05:00 PM EDT [facility] Name Value Range Interpretation Code Description Data Yadi rce(s) Supporting Document(s) Thyroxine (T4) free index in Serum or Plasma by calculation 1.73 NG/DL 0.93 - 1.70 H [facility] ID Date Data Source [id number] 06/04/2020 03:05:00 PM EDT [facility] Name Value Range Interpretation Code Description Data Yadi rce(s) Supporting Document(s) Thyrotropin [Units/volume] in Serum or Plasma by Detec tion limit <= 0.05 mIU/L 0.26 uIU/mL 0.47 - 5.01 L [facility] ID Date Data Source [id number] 05/13/2020 01:33:00 PM EDT [facility] ([facility]) Name Value Range Interpretation Code Description Data Yadi rce(s) Supporting Document(s) Thyrotropin [Units/volume] in Serum or Plasma 0.11 uIU/mL 0. 47-5.01 Below low normal [facility] ([facility]) Thyroxine (T4) free [Mass/volume] in Serum or Plasma 1.52 ng/dL 0.93- 1.70 [facility] ([facility]) Cobalamin (Vitamin B12) [Mass/volume] in Serum or Plasma 299 pg/mL 2 32-1245 [facility] ([facility]) ID Date Data Source [id number] 05/13/2020 01:33:00 PM EDT [facility] ([facility]) Name Value Range Interpretation Code Description Data Yadi rce(s) Supporting Document(s) Uibc 162 ug/dL 112-347 [facility] ([facility]) Tibc 211 ug/dL 250-450 Below low normal [facility] ( [facility]) Iron 49 ug/dL 42-135 [facility] ([facility]) Iron Sat 23 % [facility] ([facility]) ID Date Data Source [id number] 05/13/2020 01:33:00 PM EDT [facility] ([facility]) Name Value Range Interpretation Code Description Data Yadi rce(s) Supporting Document(s) Ferritin [Mass/volume] in Serum or Plasma 198.7 ng/mL 3.0-105 Above high normal [facility] ([facility]) ID Date Data Source [id number] 05/13/2020 05:37:[address] [facility] Value Range Interpretation Code Description Data Yadi rce(s) Supporting Document(s) Cobalamin (Vitamin B12) [Mass/volume] in Serum or Plasma 299 PG/ML 232 - 1245 [facility] ID Date Data Source [id number] 05/13/2020 05:37:[address] [facility] Value Range Interpretation Code Description Data Yadi rce(s) Supporting Document(s) Thyroxine (T4) free index in Serum or Plasma by calculation 1.52 NG/DL 0.93 - 1.70 [facility] ID Date Data Source [id number] 05/13/2020 05:37:[address] [facility] Value Range Interpretation Code Description Data Yadi rce(s) Supporting Document(s) Thyrotropin [Units/volume] in Serum or Plasma by Detec tion limit <= 0.05 mIU/L 0.11 uIU/mL 0.47 - 5.01 L [facility] ID Date Data Source [id number] 05/13/2020 05:36:[address] [facility] Value Range Interpretation Code Description Data Yadi rce(s) Supporting Document(s) Ferritin [Mass/volume] in Serum or Plasma 198.7 ng/mL 3.0 - 105 H [facility] ID Date Data Source [id number] 05/13/2020 05:27:00 PM EDT [facility] Name Value Range Interpretation Code Description Data Yadi rce(s) Supporting Document(s) Iron [Mass/volume] in Serum or Plasma 49 UG/DL 42 - 135 [facility] Iron binding capacity.unsaturated [Mass/volume] in Serum or Plasma 162 UG/DL 112 - 347 [facility] Iron binding capacity [Mass/volume] in Serum or Plasma 211 ug/dL 250 - 450 L [facility] Iron saturation [Mass Fraction] in Serum or Plasma 23 % [facility] Procedure Social History Code Duration Value Status Description Data Source(s ) Smoking 01/30/2021 12:00:00 AM EDT Patient is a former smoker completed Patient is a former smoker [facility] ([facility]) Vital Signs ID Date Data Source UNK Name Value Range Interpretation Code Description Data Source(s) Body surface area Derived from formula 1.68 m2 1.68 m2 [facility] ([facility]) Systolic blood pressure 110 mm[Hg] 110 mm[Hg] M [facility] ([facility]) Body mass index (BMI) [Ratio] 23.9 kg/m2 23.9 k g/m2 [facility] ([facility]) Body height 64 [in_i] 64 [in_i] [facility] ([facility]) 5'4" Diastolic blood pressure 72 mm[Hg] 72 mm[Hg] [facility] ([facility]) Heart rate 70 /min 70 /min [facility] ([facility]) Body temperature 97.1 [degF] 97.1 [degF] [facility] ([facility]) Respiratory rate 18 /min 18 /min [facility] ( [facility]) Oxygen saturation in Arterial blood by Pulse oximetry 99 % 99 % [facility] ([facility]) Body weight 139.00 [lb_av] 139.00 [lb_av] [facility] ([facility]) Body weight 63.050 kg 63.050 kg [facility] ([facility]) Respiratory rate 16 /min 16 /min [facility] ( [facility]) Diastolic blood pressure 82 mm[Hg] 82 mm[Hg] [facility] ([facility]) Systolic blood pressure 128 mm[Hg] 128 mm[Hg] [facility] ([facility]) Body height 61 [in_i] 61 [in_i] [facility] ([facility]) 5'1" Body mass index (BMI) [Ratio] 28.0 kg/m2 28.0 k g/m2 [facility] ([facility]) Body surface area Derived from formula 1.66 m2 1.66 m2 [facility] ([facility]) Diastolic blood pressure 72 mm[Hg] 72 mm[Hg] [facility] ([facility]) Heart rate 88 /min 88 /min [facility] ([facility]) Body temperature 97.3 [degF] 97.3 [degF] [facility] ([facility]) Respiratory rate 18 /min 18 /min [facility] ( [facility]) Oxygen saturation in Arterial blood by Pulse oximetry 93 % 93 % [facility] ([facility]) Body weight 148.00 [lb_av] 148.00 [lb_av] [facility] ([facility]) Body weight 67.133 kg 67.133 kg [facility] ([facility]) Systolic blood pressure 134 mm[Hg] 134 mm[Hg] [facility] ([facility]) Oxygen saturation in Arterial blood by Pulse oximetry 100 % 100 % [facility] ([facility]) Systolic blood pressure 112 mm[Hg] 112 mm[Hg] [facility] ([facility]) Diastolic blood pressure 71 mm[Hg] 71 mm[Hg] [facility] ([facility]) Heart rate 100 /min 100 /min [facility] ([facility]) Body temperature 98.0 [degF] 98.0 [degF] [facility] ([facility]) Systolic blood pressure 128 mm[Hg] 128 mm[Hg] [facility] ([facility]) Respiratory rate 18 /min 18 /min [facility] ( [facility]) Oxygen saturation in Arterial blood by Pulse oximetry 99 % 99 % [facility] ([facility]) Diastolic blood pressure 82 mm[Hg] 82 mm[Hg] [facility] ([facility]) Heart rate 94 /min 94 /min [facility] ([facility]) Body temperature 98.4 [degF] 98.4 [degF] [facility] ([facility]) Body temperature 99.1 [degF] 99.1 [degF] [facility] ([facility]) [facility] 101 /min 101 /[facility] Oxygen saturation in Arterial blood by Pulse oximetry 96 % 96 % [facility] ([facility]) Body mass index (BMI) [Ratio] 30.0 kg/m2 30.0 k g/m2 [facility] ([facility]) Body surface area Derived from formula 1.71 m2 1.71 m2 [facility] ([facility]) Body height 61 [in_i] 61 [in_i] [facility] ([facility]) 5'1" Heart rate 83 /min 83 /min [facility] ([facility]) Body temperature 96.2 [degF] 96.2 [degF] [facility] ([facility]) Body weight 72.122 kg 72.122 kg [facility] ([facility]) Systolic blood pressure 102 mm[Hg] 102 mm[Hg] [facility] ([facility]) Diastolic blood pressure 60 mm[Hg] 60 mm[Hg] [facility] ([facility]) Respiratory rate 14 /min 14 /min [facility] ( [facility]) Oxygen saturation in Arterial blood by Pulse oximetry 95 % 95 % [facility] ([facility]) Body weight 159.00 [lb_av] 159.00 [lb_av] [facility] ([facility]) Diastolic blood pressure 60 mm[Hg] 60 mm[Hg] [facility] ([facility] ) Heart rate 64 /min 64 /min [facility] ([facility] ) Oxygen saturation in Arterial blood by Pulse oximetry 98 % 98 % [facility] ([facility] ) Body temperature 97.3 [degF] 97.3 [degF] [facility] ([facility] ) Body height 61 [in_i] 61 [in_i] [facility] ([facility] ) 5'1" Body weight 158.44 [lb_av] 158.44 [lb_av] [facility] ([facility] ) Body mass index (BMI) [Ratio] 29.9 kg/m2 29.9 k g/m2 [facility] ([facility]) Systolic blood pressure 120 mm[Hg] 120 mm[Hg] [facility] ([facility]) Oxygen saturation in Arterial blood by Pulse oximetry 96 % 96 % [facility] ([facility]) Systolic blood pressure 102 mm[Hg] 102 mm[Hg] [facility] ([facility]) Diastolic blood pressure 62 mm[Hg] 62 mm[Hg] [facility] ([facility]) Heart rate 102 /min 102 /min [facility] ([facility]) Body temperature 99.2 [degF] 99.2 [degF] [facility] ([facility]) Systolic blood pressure 123 mm[Hg] 123 mm[Hg] [facility]) Diastolic blood pressure 73 mm[Hg] 73 mm[Hg] [facility] ([facility]) Heart rate 100 /min 100 /min [facility] ([facility]) Body temperature 98.2 [degF] 98.2 [degF] [facility] ([facility]) Respiratory rate 16 /min 16 /min [facility] ( [facility]) Oxygen saturation in Arterial blood by Pulse oximetry 98 % 98 % [facility] ([facility]) Systolic blood pressure 102 mm[Hg] 102 mm[Hg] M [facility] ([facility]) Diastolic blood pressure 76 mm[Hg] 76 mm[Hg] [facility] ([facility]) Heart rate 107 /min 107 /min [facility] ([facility]) Body temperature 98.8 [degF] 98.8 [degF] [facility] ([facility]) Oxygen saturation in Arterial blood by Pulse oximetry 96 % 96 % [facility] ([facility]) Body temperature 98.6 [degF] 98.6 [degF] [facility] ([facility]) Oxygen saturation in Arterial blood by Pulse oximetry 96 % 96 % [facility] ([facility]) Systolic blood pressure 102 mm[Hg] 102 mm[Hg] [facility] ([facility]) Diastolic blood pressure 80 mm[Hg] 80 mm[Hg] [facility] ([facility]) Heart rate 87 /min 87 /min [facility] ([facility]) Heart rate 113 /min 113 /min [facility] ([facility]) Body temperature 98.9 [degF] 98.9 [degF] [facility] Oxygen saturation in Arterial blood by Pulse oximetry 98 % 98 % [facility] ([facility]) Systolic blood pressure 90 mm[Hg] 90 mm[Hg] M [facility] ([facility]) Body weight 155.00 [lb_av] 155.00 [lb_av] [facility] ([facility]) Oxygen saturation in Arterial blood by Pulse oximetry 98 % 98 % [facility] ([facility]) Body height 61 [in_i] 61 [in_i] [facility] ([facility]) 5'1" Body surface area Derived from formula 1.69 m2 1.69 m2 [facility] ([facility]) Body mass index (BMI) [Ratio] 29.3 kg/m2 29.3 k g/m2 [facility] ([facility]) Diastolic blood pressure 40 mm[Hg] 40 mm[Hg] [facility] ([facility]) Body temperature 99.0 [degF] 99.0 [degF] [facility] ([facility]) Body weight 70.308 kg 70.308 kg [facility] ([facility]) Respiratory rate 18 /min 18 /min [facility] ( [facility]) Heart rate 98 /min 98 /min [facility] ([facility]) Diastolic blood pressure--sitting 52 mm[Hg] 52 mm[Hg] [facility] ([facility]) Manual Left Arm Body temperature 98.2 [degF] 98.2 [degF] [facility] ([facility]) Oral Heart rate 68 /min 68 /min [facility] ([facility]) Body weight 66.736 kg 66.736 kg [facility] ([facility]) Body weight 147.12 [lb_av] 147.12 [lb_av] [facility] ([facility]) Respiratory rate 16 /min 16 /min [facility] ( [facility]) Oxygen saturation in Arterial blood by Pulse oximetry 98 % 98 % [facility] ([facility]) Body surface area Derived from formula 1.66 m2 1.66 m2 [facility] ([facility]) Body height 61 [in_i] 61 [in_i] [facility] ([facility]) 5'1" Systolic blood pressure--sitting 98 mm[Hg] 98 mm[Hg] [facility] ([facility]) Manual Left Arm Body mass index (BMI) [Ratio] 27.8 kg/m2 27.8 k g/m2 [facility] ([facility]) Diastolic blood pressure 88 mm[Hg] 88 mm[Hg] [facility] ([facility] ) Heart rate 84 /min 84 /min [facility] ([facility] ) Oxygen saturation in Arterial blood by Pulse oximetry 98 % 98 % [facility] ([facility]) Body temperature 98.4 [degF] 98.4 [degF] [facility] ([facility] ) Body height 61 [in_i] 61 [in_i] [facility] ([facility]) 5'1" Body weight 152.25 [lb_av] 152.25 [lb_av] [facility] ([facility] ) Body mass index (BMI) [Ratio] 28.8 kg/m2 28.8 k g/m2 [facility] ([facility] ) Systolic blood pressure 132 mm[Hg] 132 mm[Hg] M [facility] ([facility] ) Oxygen saturation in Arterial blood by Pulse oximetry 98 % 98 % [facility] ([facility]) Body weight 152.00 [lb_av] 152.00 [lb_av] [facility] ([facility]) Body temperature 98.9 [degF] 98.9 [degF] [facility] ([facility]) Body weight 68.947 kg 68.947 kg [facility] ([facility]) Respiratory rate 16 /min 16 /min [facility] ( [facility]) Body height 61 [in_i] 61 [in_i] [facility] ([facility]) 5'1" Body mass index (BMI) [Ratio] 28.7 kg/m2 28.7 k g/m2 [facility] ([facility]) Body surface area Derived from formula 1.68 m2 1.68 m2 [facility] ([facility]) Systolic blood pressure 116 mm[Hg] 116 mm[Hg] M [facility] ([facility]) Diastolic blood pressure 80 mm[Hg] 80 mm[Hg] [facility] ([facility]) Heart rate 73 /min 73 /min [facility] ([facility]) Systolic blood pressure 126 mm[Hg] 126 mm[Hg] M [facility] ([facility] ) Diastolic blood pressure 76 mm[Hg] 76 mm[Hg] [facility] ([facility] ) Heart rate 87 /min 87 /min [facility] ([facility]) Body temperature 97.6 [degF] 97.6 [degF] [facility] ([facility]) Body height 61 [in_i] 61 [in_i] [facility] ([facility]) 5'1" Body weight 133.50 [lb_av] 133.50 [lb_av] [facility] ([facility] ) Body mass index (BMI) [Ratio] 25.2 kg/m2 25.2 k g/m2 [facility] ([facility]) Oxygen saturation in Arterial blood by Pulse oximetry 98 % 98 % [facility] ([facility]) Respiratory rate 16 /min 16 /min [facility] ( [facility]) Diastolic blood pressure 80 mm[Hg] 80 mm[Hg] [facility] ([facility]) Heart rate 88 /min 88 /min [facility] ([facility]) Oxygen saturation in Arterial blood by Pulse oximetry 99 % 99 % [facility] ([facility]) Body temperature 98.2 [degF] 98.2 [degF] [facility] ([facility]) Systolic blood pressure 115 mm[Hg] 115 mm[Hg] M [facility] ([facility]) Systolic blood pressure 113 mm[Hg] 113 mm[Hg] [facility] ([facility]) Heart rate 87 /min 87 /min [facility] ([facility]) Body temperature 98.7 [degF] 98.7 [degF] [facility] ([facility]) Oxygen saturation in Arterial blood by Pulse oximetry 99 % 99 % [facility] ([facility]) Diastolic blood pressure 74 mm[Hg] 74 mm[Hg] [facility] ([facility]) Respiratory rate 16 /min 16 /min [facility] ( [facility]) Systolic blood pressure 118 mm[Hg] 118 mm[Hg] [facility] ([facility]) Diastolic blood pressure 74 mm[Hg] 74 mm[Hg] [facility] ([facility]) Heart rate 86 /min 86 /min [facility] ([facility]) Body temperature 97.2 [degF] 97.2 [degF] [facility] ([facility]) Respiratory rate 18 /min 18 /min [facility] ( [facility]) Oxygen saturation in Arterial blood by Pulse oximetry 96 % 96 % [facility] ([facility]) Body weight 138.00 [lb_av] 138.00 [lb_av] [facility] ([facility]) Body weight 62.597 kg 62.597 kg [facility] ([facility]) Body height 61 [in_i] 61 [in_i] [facility] ([facility]) 5'1" Body mass index (BMI) [Ratio] 26.1 kg/m2 26.1 k g/m2 [facility] ([facility]) Body surface area Derived from formula 1.61 m2 1.61 m2 [facility] ([facility])
[2021-06-21 21:49] LABS: HEMATOCRIT 35.2 % (36.0-47.0); HEMOGLOBIN 11.5 g/dl (12.0-15.5); MEAN CORPUSCULAR HEMOGLOBIN 30.7 pg (27.0-33.0); MEAN CORPUSCULAR HGB CONC 32.7 g/dl (32.0-36.5); MEAN CORPUSCULAR VOLUME 94.1 fl (80.0-96.0); PLATELET COUNT, AUTOMATED 315 10^3/uL (150-450); RED BLOOD COUNT 3.74 10^6/uL (4.00-5.40); WHITE BLOOD COUNT 12.1 10^3/uL (4.0-10.0)
[2021-06-21] MEDS ORDERED: PRAZ1CAP PO (21:49)
[2021-06-21] MEDS ORDERED: medical marijuana (21:49)
[2021-06-21] MEDS ORDERED: LITH300C PO (21:49)
--- OUTSIDE RECORDS SUMMARY | 2021-06-21 21:52 | CCD ---
Author Author [facility] Organization [facility] Address Unknown Phone Unavailable Support Name Relationship Address Phone TONA JOLLEY Next Of Kin [address] [place] [address] VALENTINO NICOLAS Next Of Kin [address] [place] [address] Sonia Boothe DDS Next Of Kin [address] [place], [place] [phone] Arelis Mcwilliams Next Of Kin Unknown Unavailable MCDEVANSMI Next Of Kin [address] [place] [address] MCDPUL Next Of Kin [address] [facility] [address] [place] [address] UNK Next Of Kin Unknown Unavailable MCDONALDS Next Of Kin [address] [place] [address] [place] [phone] ANTOINETTE NOGUERA Next Of Kin [address] [place] [address] Sonia Boothe DDS Next Of Kin [address] [place] [address] BRITTANIE KOENIG Next Of Kin [address] [facility] [address] [place] [address] MAGEN'Martin Next Of Kin [facility] [address] [place] [address] KATI NOGUERA Next Of Kin [address] [place] [address] KMART Next Of Kin [address] [facility] [place] [address] SALMONRUN Next Of Kin [address] [facility] [address] ST Next Of Kin Unknown Unavailable Gray SAAVEDRA Next Of Kin [address] [place] [address] UNEMPLOYED Next Of Kin [address] [place] [address] UE Next Of Kin Unknown Unavailable Gray MCWILLIAMS Next Of Kin [address] [place] [address] LUCYCELEIE Next Of Kin [address] [place] [address] Arelis Mcwilliams ECON [address] [place] [address] Unavailable Care Team Providers Care Automotive Service Technician Name Role Phone TOÑA, F GREGG DO [...] Juliana PA-C Unavailable Unavailable JESS, B REGGIE DRILLING FOREMAN Unavailable Unavailable JESS, B REGGIE DRILLING FOREMAN Unavailable Unavailable JESS, B REGGIE DRILLING FOREMAN Unavailable Unavailable JESS, B REGGIE DRILLING FOREMAN Unavailable Unavailable JESS, B REGGIE DRILLING FOREMAN Unavailable Unavailable JESS, B REGGIE DRILLING FOREMAN Unavailable Unavailable JESS, B REGGIE DRILLING FOREMAN Unavailable Unavailable JESS, B REGGIE DRILLING FOREMAN Unavailable Unavailable JESS, B REGGIE DRILLING FOREMAN Unavailable Unavailable JESS, B REGGIE DRILLING FOREMAN Unavailable Unavailable JESS, B REGGIE DRILLING FOREMAN Unavailable Unavailable JESS, B REGGIE DRILLING FOREMAN Unavailable Unavailable JESS, B REGGIE DRILLING FOREMAN Unavailable Unavailable JESS, B REGGIE DRILLING FOREMAN Unavailable Unavailable JESS, B REGGIE DRILLING FOREMAN Unavailable Unavailable JESS, B REGGIE DRILLING FOREMAN Unavailable Unavailable JESS, B REGGIE DRILLING FOREMAN Unavailable Unavailable JESS, B REGGIE DRILLING FOREMAN Unavailable Unavailable JESS, B REGGIE DRILLING FOREMAN Unavailable Unavailable JESS, B REGGIE DRILLING FOREMAN Unavailable Unavailable JESS, B REGGIE DRILLING FOREMAN Unavailable Unavailable JESS, B REGGIE DRILLING FOREMAN Unavailable Unavailable JESS, B REGGIE DRILLING FOREMAN Unavailable Unavailable JESS, B REGGIE DRILLING FOREMAN Unavailable Unavailable JESS, B REGGIE DRILLING FOREMAN Unavailable Unavailable JESS, B REGGIE DRILLING FOREMAN Unavailable Unavailable JESS, B REGGIE DRILLING FOREMAN Unavailable Unavailable JESS, B REGGIE DRILLING FOREMAN Unavailable Unavailable JESS, B REGGIE DRILLING FOREMAN Unavailable Unavailable JESS, B REGGIE DRILLING FOREMAN Unavailable Unavailable JESS, B REGGIE DRILLING FOREMAN Unavailable Unavailable JESS, B REGGIE DRILLING FOREMAN Unavailable Unavailable JESS, B REGGIE DRILLING FOREMAN Unavailable Unavailable JESS, B REGGIE DRILLING FOREMAN Unavailable Unavailable JESS, B REGGIE DRILLING FOREMAN Unavailable Unavailable JESS, B REGGIE DRILLING FOREMAN Unavailable Unavailable JESS, B REGGIE DRILLING FOREMAN Unavailable Unavailable JESS, B REGGIE DRILLING FOREMAN Unavailable Unavailable JESS, B REGGIE DRILLING FOREMAN Unavailable Unavailable JESS, B REGGIE DRILLING FOREMAN Unavailable Unavailable JESS, B REGGIE DRILLING FOREMAN Unavailable Unavailable JESS, B REGGIE DRILLING FOREMAN Unavailable Unavailable JESS, B REGGIE DRILLING FOREMAN Unavailable Unavailable JESS, B REGGIE DRILLING FOREMAN Unavailable Unavailable JESS, B REGGIE DRILLING FOREMAN Unavailable Unavailable JESS, B REGGIE DRILLING FOREMAN Unavailable Unavailable JESS, B REGGIE DRILLING FOREMAN Unavailable Unavailable JESS, B REGGIE DRILLING FOREMAN Unavailable Unavailable JESS, B REGGIE DRILLING FOREMAN Unavailable Unavailable JESS, B REGGIE DRILLING FOREMAN Unavailable Unavailable JESS, B REGGIE DRILLING FOREMAN Unavailable Unavailable JESS, B REGGIE DRILLING FOREMAN Unavailable Unavailable JESS, B REGGIE DRILLING FOREMAN Unavailable Unavailable JESS, B REGGIE DRILLING FOREMAN Unavailable Unavailable JESS, B REGGIE DRILLING FOREMAN Unavailable Unavailable JESS, B REGGIE DRILLING FOREMAN Unavailable Unavailable JESS, B REGGIE DRILLING FOREMAN Unavailable Unavailable JESS, B REGGIE DRILLING FOREMAN Unavailable Unavailable JESS, B REGGIE DRILLING FOREMAN Unavailable Unavailable JESS, B REGGIE DRILLING FOREMAN Unavailable Unavailable JESS, B REGGIE DRILLING FOREMAN Unavailable Unavailable JESS, B REGGIE DRILLING FOREMAN Unavailable Unavailable QUINN, J AVINASH PA Unavailable [...] J AVINASH PA Unavailable Unavailable QUINN, J AVINSAH PA Unavailable Unavailable QUINN, J AVINASH PA [...] F PA-C Unavailable Unavailable BUMBANAC, A STAR DRILLING FOREMAN Unavailable Unavailable BUMBANAC, A STAR DRILLING FOREMAN Unavailable Unavailable BUMBANAC, A STAR DRILLING FOREMAN Unavailable Unavailable BUMBANAC, A STAR DRILLING FOREMAN Unavailable Unavailable BUMBANAC, A STAR DRILLING FOREMAN Unavailable Unavailable BUMBANAC, A STAR DRILLING FOREMAN Unavailable Unavailable BUMBANAC, A STAR DRILLING FOREMAN Unavailable Unavailable BUMBANAC, A STAR DRILLING FOREMAN Unavailable Unavailable BUMBANAC, A STAR DRILLING FOREMAN Unavailable Unavailable BUMBANAC, A STAR DRILLING FOREMAN Unavailable Unavailable BUMBANAC, A STAR DRILLING FOREMAN Unavailable Unavailable BUMBANAC, A STAR DRILLING FOREMAN Unavailable Unavailable BUMBANAC, A STAR DRILLING FOREMAN Unavailable Unavailable BUMBANAC, A STAR DRILLING FOREMAN Unavailable Unavailable BUMBANAC, A STAR DRILLING FOREMAN Unavailable Unavailable BUMBANAC, A STAR DRILLING FOREMAN Unavailable Unavailable BUMBANAC, A STAR DRILLING FOREMAN Unavailable Unavailable BUMBANAC, A STAR DRILLING FOREMAN Unavailable Unavailable BUMBANAC, A STAR DRILLING FOREMAN Unavailable Unavailable BUMBANAC, A STAR DRILLING FOREMAN Unavailable Unavailable BUMBANAC, A STAR DRILLING FOREMAN Unavailable Unavailable BUMBANAC, A STAR DRILLING FOREMAN Unavailable Unavailable BUMBANAC, A STAR DRILLING FOREMAN Unavailable Unavailable BUMBANAC, A STAR DRILLING FOREMAN Unavailable Unavailable BUMBANAC, A STAR DRILLING FOREMAN Unavailable Unavailable BUMBANAC, A STAR DRILLING FOREMAN Unavailable Unavailable BUMBANAC, A STAR DRILLING FOREMAN Unavailable Unavailable BUMBANAC, A STAR DRILLING FOREMAN Unavailable Unavailable BUMBANAC, A STAR DRILLING FOREMAN Unavailable Unavailable BUMBANAC, A STAR DRILLING FOREMAN Unavailable Unavailable BUMBANAC, A STAR DRILLING FOREMAN Unavailable Unavailable KARENA, BRIAN ANALYSIS MGR Unavailable Unavailable KARENA, BRIAN ANALYSIS MGR Unavailable Unavailable Esquivel, A Shiv PA Unavailable [...] Unavailable MANSFIELD, SCARLET MD Unavailable Unavailable MANSFIELD, SCALRET MD Unavailable Unavailable MANSFIELD, SCARLET MD Unavailable [...] Unavailable MANSFIELD, SCARLET MD Unavailable Unavailable MANSFIELD, CSARLET MD Unavailable Unavailable MANSFIELD, SCARLET MD Unavailable [...] SCARLET MD Unavailable Unavailable BUMBANAC, A STAR DRILLING FOREMAN Unavailable Unavailable BUMBANAC, A STAR DRILLING FOREMAN Unavailable Unavailable BUMBANAC, A STAR DRILLING FOREMAN Unavailable Unavailable BUMBANAC, A STAR DRILLING FOREMAN Unavailable Unavailable BUMBANAC, A STAR DRILLING FOREMAN Unavailable Unavailable BUMBANAC, A STAR DRILLING FOREMAN Unavailable Unavailable BUMBANAC, A STAR DRILLING FOREMAN Unavailable Unavailable BUMBANAC, A STAR DRILLING FOREMAN Unavailable Unavailable BUMBANAC, A STAR DRILLING FOREMAN Unavailable Unavailable BUMBANAC, A STAR DRILLING FOREMAN Unavailable Unavailable BUMBANAC, A STAR DRILLING FOREMAN Unavailable Unavailable BUMBANAC, A STAR DRILLING FOREMAN Unavailable Unavailable BUMBANAC, A STAR DRILLING FOREMAN Unavailable Unavailable BUMBANAC, A STAR DRILLING FOREMAN Unavailable Unavailable BUMBANAC, A STAR DRILLING FOREMAN Unavailable Unavailable BUMBANAC, A STAR DRILLING FOREMAN Unavailable Unavailable BUMBANAC, A STAR DRILLING FOREMAN Unavailable Unavailable BUMBANAC, A STAR DRILLING FOREMAN Unavailable Unavailable BUMBANAC, A STAR DRILLING FOREMAN Unavailable Unavailable BUMBANAC, A STAR DRILLING FOREMAN Unavailable Unavailable BUMBANAC, A STAR DRILLING FOREMAN Unavailable Unavailable BUMBANAC, A STAR DRILLING FOREMAN Unavailable Unavailable BUMBANAC, A STAR DRILLING FOREMAN Unavailable Unavailable BUMBANAC, A STAR DRILLING FOREMAN Unavailable Unavailable BUMBANAC, A STAR DRILLING FOREMAN Unavailable Unavailable BUMBANAC, A STAR DRILLING FOREMAN Unavailable Unavailable BUMBANAC, A STAR DRILLING FOREMAN Unavailable Unavailable BUMBANAC, A STAR DRILLING FOREMAN Unavailable Unavailable BUMBANAC, A STAR DRILLING FOREMAN Unavailable Unavailable BUMBANAC, A STAR DRILLING FOREMAN Unavailable Unavailable BUMBANAC, A STAR DRILLING FOREMAN Unavailable Unavailable RICCI, KERRY MALVIN DRILLING FOREMAN Unavailable Unavailable RICCI, KERRY MALVIN DRILLING FOREMAN Unavailable Unavailable RICCI, KERRY MALVIN DRILLING FOREMAN Unavailable Unavailable RICCI, KERRY MALVIN DRILLING FOREMAN Unavailable Unavailable RICCI, KERRY MALVIN DRILLING FOREMAN Unavailable Unavailable RICCI, KERRY MALVIN DRILLING FOREMAN Unavailable Unavailable RICCI, KERRY MALVIN DRILLING FOREMAN Unavailable Unavailable RICCI, KERRY MALVIN DRILLING FOREMAN Unavailable Unavailable RICCI, KERRY MALVIN DRILLING FOREMAN Unavailable Unavailable RICCI, KERRY MALVIN DRILLING FOREMAN Unavailable Unavailable RICCI, KERRY MALVIN DRILLING FOREMAN Unavailable Unavailable RICCI, KERRY MALVIN DRILLING FOREMAN Unavailable Unavailable RICCI, KERRY MALVIN DRILLING FOREMAN Unavailable Unavailable RICCI, KERRY MALVIN DRILLING FOREMAN Unavailable Unavailable RICCI, KERRY MALVIN DRILLING FOREMAN Unavailable Unavailable RICCI, KERRY MALVIN DRILLING FOREMAN Unavailable Unavailable RICCI, KERRY MALVIN DRILLING FOREMAN Unavailable Unavailable RICCI, KERRY MALVIN DRILLING FOREMAN Unavailable Unavailable RICCI, KERRY MALVIN DRILLING FOREMAN Unavailable Unavailable RICCI, KERRY MALVIN DRILLING FOREMAN Unavailable Unavailable RICCI, KERRY MALVIN DRILLING FOREMAN Unavailable Unavailable RICCI, KERRY MALVIN DRILLING FOREMAN Unavailable Unavailable RICCI, KERRY MALVIN DRILLING FOREMAN Unavailable Unavailable TURRIN, PARAMJIT Unavailable Unavailable TURRIN, PARAMJIT Unavailable Unavailable TURRIN, PARAMJIT Unavailable Unavailable TURRIN, PARAMJIT Unavailable Unavailable Rao, D Yoni DRILLING FOREMAN Unavailable Unavailable Rao, D Yoni DRILLING FOREMAN Unavailable Unavailable Rao, D Yoni DRILLING FOREMAN Unavailable Unavailable Rao, D Yoni DRILLING FOREMAN Unavailable Unavailable Rao, D Yoni DRILLING FOREMAN Unavailable Unavailable Rao, D Yoni DRILLING FOREMAN Unavailable Unavailable Rao, D Yoni DRILLING FOREMAN Unavailable Unavailable Rao, D Yoni DRILLING FOREMAN Unavailable Unavailable Rao, D Yoni DRILLING FOREMAN Unavailable Unavailable Rao, D Yoni DRILLING FOREMAN Unavailable Unavailable Rao, D Yoni DRILLING FOREMAN Unavailable Unavailable Rao, D Yoni DRILLING FOREMAN Unavailable Unavailable Rao, D Yoni DRILLING FOREMAN Unavailable Unavailable Rao, D Yoni DRILLING FOREMAN Unavailable Unavailable Rao, D Yoni DRILLING FOREMAN Unavailable Unavailable Rao, D Yoni DRILLING FOREMAN Unavailable Unavailable Rao, D Yoni DRILLING FOREMAN Unavailable Unavailable Rao, D Yoni DRILLING FOREMAN Unavailable Unavailable Rao, D Yoni DRILLING FOREMAN Unavailable Unavailable Rao, D Yoni DRILLING FOREMAN Unavailable Unavailable Rao, D Yoni DRILLING FOREMAN Unavailable Unavailable Rao, D Yoni DRILLING FOREMAN Unavailable Unavailable Rao, D Yoni DRILLING FOREMAN Unavailable Unavailable Rao, D Yoni DRILLING FOREMAN Unavailable Unavailable Rao, D Yoni DRILLING FOREMAN Unavailable Unavailable Rao, D Yoni DRILLING FOREMAN Unavailable Unavailable Rao, D Yoni DRILLING FOREMAN Unavailable Unavailable Rao, D Yoni DRILLING FOREMAN Unavailable Unavailable Rao, D Yoni DRILLING FOREMAN Unavailable Unavailable Rao, D Yoni DRILLING FOREMAN Unavailable Unavailable Rao, D Yoni DRILLING FOREMAN Unavailable Unavailable Rao, D Yoni DRILLING FOREMAN Unavailable Unavailable Rao, D Yoni DRILLING FOREMAN Unavailable Unavailable Roa, D Yoni DRILLING FOREMAN Unavailable Unavailable Rao, D Yoni DRILLING FOREMAN Unavailable Unavailable Rao, D Yoni DRILLING FOREMAN Unavailable Unavailable Rao, D Yoni DRILLING FOREMAN Unavailable Unavailable Rao, D Yoni DRILLING FOREMAN Unavailable Unavailable Rao, D Yoni DRILLING FOREMAN Unavailable Unavailable Rao D Yoni DRILLING FOREMAN Unavailable Unavailable Precious Rubio MD Unavailable Unavailable [...] JR, R Jose F PA-C Unavailable Unavailable [id number], [phone] Unavailable Unavailable RUBEN, TONA MAYE PA Unavailable [...] Unavailable Unavailable Darrel Pyle MD Unavailable Unavailable Darrle Pyle MD Unavailable Unavailable Darrel Pyle MD [...] Ali, Garret COLLINS Unavailable Unavailable Haroon Saxena [facility] Unavailable Unavailable Precious Rubio MD Unavailable Unavailable [...] is protected by Article 27-F of the [facility] Public Health law. If you continue you may have access to information: Regarding HIV / AIDS; Provided by facilities licensed or operated by the [facility] Office of Mental Health; or Provided by the [facility] Office for People With Developmental Disabilities. If such information is present, then the following [facility] mandated warning applies: This information [...] law may result in a fine or longterm sentence or both. A general authorization for the release of medical or other information is NOT sufficient authorization for further disc losure. Allergies and Adverse Reactions Type Description Substance Reaction Status Data Source(s ) No Known Food Allergies No Known Food Allergies [facility] Propensity to adverse reactions VICODIN VICODIN [facility] Propensity to adverse reactions LATEX LATEX [facility] Drug allergy MORPHINE MORPHINE [facility] Drug allergy CODEINE CODEINE [facility] Propensity to adverse reactions OPIOID OPIOID HIVES [facility] Family History Family Member Name Family Member Gender Family Member Status Date o f Status Description Data Source(s) Unknown Unknown Problem [facility] ([facility]) Encounters Encounter Providers Location Date Indications Data Source(s ) Outpatient Attender: SCARLET MANSFIELD MDConsultant: SCARLET Denney MD 06/18/2021 10:55:00 AM EDT - 06/18/2021 10:55:00 AM EDT [facility] Outpatient Attender: Amara Velazquez MHCConsultant: SCARLET DUPONT MD 06/11/2021 05:11:00 PM EDT - 06/11/2021 05:11:00 PM EDT [facility] Outpatient Attender: Amara Velazquez MHCConsultant: SCARLET DUPONT MD 06/03/2021 03:45:00 PM EDT - 06/03/2021 03:45:00 PM [facility] Outpatient Attender: Amara Velazquez MHCConsultant: SCARLET DUPONT MD 05/28/2021 03:07:00 PM EDT - 05/28/2021 03:07:00 PM EDT [facility] Outpatient Attender: SCARLET MANSFIELD MDConsultant: SCARLET Denney MD 05/16/2021 01:13:00 PM EDT - 05/16/2021 02:13:00 PM EDT [facility] Outpatient Attender: MALVIN RICCI NPConsultant: SCARLET MANSFIELD MD 05/16/2021 01:11:00 PM EDT - 05/16/2021 02:11:00 PM EDT [facility] Outpatient Attender: Amara PABLOA ttender: MALVIN RICCI NPConsultant: SCARLET MANSFIELD MD 05/14/2021 03:59:00 PM EDT - 05/14/2021 03:59:00 PM EDT [facility] Outpatient Attender: JENNIE YEPEZ NPConsultant: SCARLET SCHAFER MD 05/12/2021 08:29:00 AM EDT - 05/12/2021 08:29:00 AM EDT [facility] Emergency Attender: PARAMJIT YUSUFConsultant: SCARLET Denney MD 05/12/2021 07:44:00 AM EDT - 05/12/2021 07:59:00 AM EDT [facility] Patient discharged. Outpatient Attender: MALVIN RICCI NP [facility] 05/07/2021 02 :15:00 PM EDT [facility] ([facility]) Outpatient Attender: MALVIN RICCI NPConsultant: SCARLET MANSFIELD MD 05/07/2021 01:50:00 PM EDT - 05/07/2021 01:50:00 PM EDT [facility] Outpatient Attender: SCARLET MANSFIELD MDConsultant: SCARLET Denney MD 05/07/2021 01:23:00 PM EDT - 05/07/2021 01:23:00 PM EDT [facility] Outpatient Attender: SCARLET MANSFIELD MD [facility] 05/07/2021 0 1:00:00 PM EDT [facility] ([facility]) Outpatient Attender: AVINASH QUINN PAConsultant: SCARLET SCHAFER MD 04/30/2021 09:42:00 AM EDT - 04/30/2021 09:42:00 AM EDT [facility] Outpatient Attender: AVINASH SIMMONS [facility] 04/30 09:40:00 AM EDT [facility] ([facility]) Outpatient Attender: MAYE MIRANDA PAConsultant: SCARLET MANSFIELD MD 04/18/2021 02:00:00 PM EDT - 04/18/2021 02:00:00 PM EDT [facility] Outpatient Attender: KIANNA HAMMCConsultant: SCARLET MANSFIELD MD 04/13/2021 02:13:00 PM EDT - 04/13/2021 02:13:00 PM EDT [facility] Outpatient Attender: KIANNA HOLM PA-C Family Practice 02:10:00 PM EDT [facility] ([facility]) Outpatient Attender: Amara Velazquez MHCConsultant: SCARLET DUPONT MD 04/11/2021 01:06:00 PM EDT - 04/11/2021 01:06:00 PM EDT [facility] Outpatient Attender: Amara Velazquez MHCConsultant: SCARLET DUPONT MD 03/12/2021 03:03:00 PM EDT - 03/12/2021 03:03:00 PM EDT [facility] Outpatient Attender: JENNIE YEPEZ NPConsultant: SCARLET SCHAFER MD 02/07/2021 12:31:00 PM EDT - 02/07/2021 12:31:00 PM EDT [facility] Outpatient Attender: Amara Velazquez MHCConsultant: SCARLET DUPONT MD 02/05/2021 03:11:00 PM EDT - 02/05/2021 03:11:00 PM EDT [facility] Outpatient Attender: SCARLET MANSFIELD MD Family Practice 02/04/2021 0 1:00:00 PM EDT [facility] ([facility]) Outpatient Attender: SCARLET MANSFIELD MDConsultant: SCARLET Denney MD 02/04/2021 12:59:00 PM EDT - 02/04/2021 12:59:00 PM EDT [facility] OFFICE OUTPATIENT VISIT 15 MINUTES Attender: Melissa Rubio MD Phy sical Therapy 01/30/2021 10:00:00 AM EDT [facility] ([facility]) Outpatient Attender: Melissa Rubio MDConsultant: SCARLET Denney MD 01/27/2021 12:33:00 PM EDT - 01/27/2021 01:33:00 PM EDT [facility] Outpatient Attender: AVINASH QUINN PAConsultant: SCARLET SCHAFER MD 01/27/2021 11:27:00 AM EDT - 01/27/2021 11:27:00 AM EDT [facility] Outpatient Attender: AVINASH SIMMONS [facility] 01/27 11:20:00 AM EDT [facility] ([facility] Outpatient Attender: Amara Velazquez MHCConsultant: SCARLET DUPONT MD 01/01/2021 03:04:00 PM EDT - 01/01/2021 03:04:00 PM EDT [facility] Outpatient Attender: Yoni Yeh NPConsultant: SCARLET ALONSO MD 12/24/2020 01:50:00 PM EDT - 12/24/2020 01:50:00 PM EDT [facility] Outpatient Attender: Juliana SIMMONS-CConsultant: SCARLET DUPONT MD 12/21/2020 01:47:00 PM EDT - 12/21/2020 01:47:00 PM EDT [facility] Outpatient Attender: JENNIE YEPEZ NP Family Practice 12/13 02:50:00 PM EDT [facility] ([facility] Outpatient Attender: JENNIE YEPEZ NPConsultant: SCARLET SCHAFER MD 12/13/2020 02:36:00 PM EDT - 12/13/2020 02:36:00 PM EDT [facility] Outpatient Attender: Amara Velazquez MHCConsultant: SCARLET DUPONT MD 12/04/2020 03:01:00 PM EDT - 12/04/2020 03:01:00 PM EDT [facility] Outpatient Attender: Jose F Negro JR Family Practice 11/30 02:20:00 PM EDT [facility] ([facility] Outpatient Attender: Jose F Negro JRConsultant: SCARLET SCHAFER MD 11/30/2020 02:18:00 PM EDT - 11/30/2020 02:18:00 PM EDT [facility] Outpatient Attender: JENNIE MEJIASJONNATHANNIRANJAN NPConsultant: SCARLET SCHAFER MD 11/21/2020 03:35:00 PM EDT - 11/21/2020 03:35:00 PM EDT [facility] Outpatient Attender: Amara Velazquez MHCConsultant: SCARLET DUPONT MD 11/13/2020 03:03:00 PM EDT - 11/13/2020 03:03:00 PM EDT [facility] Outpatient Attender: Amara Velazquez MHCConsultant: SCARLET DUPONT MD 10/29/2020 02:58:00 PM EST - 10/29/2020 02:58:00 PM [facility] Outpatient Attender: AVINASH QUINN PAConsultant: SCARLET SCHAFER MD 10/25/2020 11:21:00 AM EST - 10/25/2020 11:21:00 AM [facility] Outpatient Attender: AVINASH SIMMONS Family Practice 10/25 10:20:00 AM EST [facility] ([facility] Outpatient Attender: AVINASH QUINN PAConsultant: SCARLET SCHAFER MD 10/18/2020 01:03:00 PM EST - 10/18/2020 02:03:00 PM [facility] Outpatient Attender: Amara Velazquez MHCConsultant: SCARLET DUPONT MD 10/16/2020 02:56:00 PM EST - 10/16/2020 02:56:00 PM [facility] Outpatient Attender: AVINASH QUINN PAConsultant: SCARLET SCHAFER MD 09/24/2020 11:05:00 AM EST - 09/24/2020 11:05:00 AM [facility] Outpatient Attender: Amara Velazquez MHCConsultant: SCARLET DUPONT MD 09/18/2020 02:50:00 PM EST - 09/18/2020 02:50:00 PM [facility] Outpatient Attender: Shiv Esquivel PAConsultant: SCARLET ALONSO MD 09/17/2020 10:56:00 AM EST - 09/17/2020 10:56:00 AM [facility] Outpatient Attender: Amara Velazquez MHCConsultant: SCARLET DUPONT MD 09/04/2020 02:55:00 PM EST - 09/04/2020 02:55:00 PM [facility] Outpatient Attender: SCARLET MANSFIELD MDConsultant: SCARLET Denney MD 09/02/2020 09:21:00 AM EST - 09/02/2020 09:21:00 AM [facility] Outpatient Attender: SCARLET MANSFIELD MD Family Practice 09/02/2020 0 8:20:00 AM EST [facility] ([facility]) Outpatient Attender: Garret Donohue MD Main office [facility] 08/29/2020 01:15:00 PM EST [facility] ([facility] Outpatient Attender: Amara Velazquez MHCConsultant: SCARLET DUPONT MD 08/12/2020 03:55:00 PM EST - 08/12/2020 03:55:00 PM [facility] Outpatient Attender: AVINASH QUINN PAConsultant: SCARLET SCHAFER MD 08/12/2020 02:50:00 PM EST - 08/12/2020 02:50:00 PM [facility] Outpatient Attender: [id number] [id number] 08/12/2020 02:00:00 PM EST [facility] ([facility] Outpatient Attender: Melissa Rubio MD Physical Therapy 08/09 02:00:00 PM EST [facility] ([facility] Outpatient Attender: SCARLET MANSFIELD MDConsultant: SCARLET Denney MD 08/01/2020 02:57:00 PM EST - 08/01/2020 02:57:00 PM [facility] Outpatient Attender: SCARLET MANSFIELD MD Family Practice 08/01/2020 0 2:00:00 PM EST [facility] ([facility]) Outpatient Attender: Amara Velazquez MHCConsultant: SCARLET DUPONT MD 07/30/2020 10:40:00 AM EST - 07/30/2020 10:40:00 AM EST [facility] Outpatient Attender: BRIAN MINER WReferrer: Derek Pyle MDConsultant: SCARLET MANSFIELD MD 06/19/2020 10:00:00 AM E DT - 06/19/2020 10:00:00 AM EDT [facility] Outpatient Attender: REGGIE MERCADO NPConsultant: SCARLET ALONSO MD 06/18/2020 11:36:00 AM EDT - 06/18/2020 12:36:00 PM EDT [facility] Outpatient Attender: Melissa Rubio MDRef errer: Melissa Rubio MDConsultant: SCARLET MANSFIELD MD 06/18/2020 09:50:00 AM EDT - 06/18/2020 10:00:00 AM EDT [facility] Patient discharged. Outpatient Attender: Melissa Rubio MD Physical Therapy 06/06 03:00:00 PM EDT [facility] ([facility]) Outpatient Attender: REGGIE MERCADO NPConsultant: SCARLET ALONSO MD 06/04/2020 01:53:00 PM EDT - 06/04/2020 02:53:00 PM EDT [facility] Outpatient Attender: DOLLY TAYLOR PAConsultant: SCARLET MANSFIELD MD 05/26/2020 01:52:00 PM EDT - 05/26/2020 01:52:00 PM EDT [facility] Outpatient Attender: JENNIE YEPEZ NPConsultant: SCARLET SCHAFER MD 05/15/2020 12:20:00 PM EDT - 05/15/2020 12:20:00 PM EDT [facility] Outpatient Attender: JENNIE YEPEZ NP Family Practice 05/15 12:15:00 PM EDT [facility] ([facility] Outpatient Attender: SCARLET MANSFIELD MD Family Practice 05/13/2020 0 1:00:00 PM EDT [facility] ([facility]) Outpatient Attender: SCARLET MANSFIELD MDConsultant: SCARLET Denney MD 05/13/2020 12:59:00 PM EDT - 05/13/2020 12:59:00 PM EDT [facility] Outpatient Attender: Dina Saxena ANALYSIS MGR Referrer: Derek Pyle MDConsultant: SCARLET MANSFIELD MD 04/10/2020 03:03:00 PM EDT - 04/10/2020 03:03:00 PM EDT [facility] Outpatient Attender: SCARLET MANSFIELD MDConsultant: SCARLET Denney MD 04/02/2020 03:49:00 PM EDT - 04/02/2020 04:49:00 PM EDT [facility] Outpatient Attender: SCARLET MANSFIELD MDConsultant: SCARLET Denney MD 04/01/2020 03:02:00 PM EDT - 04/01/2020 03:02:00 PM EDT [facility] Emergency Attender: GREGG DING DOConsultant: SCARLET Denney MD 03/30/2020 12:57:00 PM EDT - 03/30/2020 04:36:00 PM EDT [facility] Patient discharged. Immunizations Vaccine Date Status Description Data Source(s) COVID-19 VACCINE Moderna 01/23/2021 12:00:00 AM EDT completed [facility] Vaccine Series Complete: YESThis Data wa s Submitted to [facility] Via [employer]. COVID-19 VACCINE Moderna 12/26/2020 12:00:00 AM EDT completed [facility] Vaccine Series Complete: NOThis Data was Submitted to [facility] Via [employer]. New in 2011. IIV4 05/13/2020 01:40:00 PM EDT completed [facility] ([facility]) Medications Medication Brand Name Start Date Product Form Dose Route Admi nistrative Instructions Pharmacy Instructions Status Indications Reaction Description Data Source(s) Metronidazole 500 MG Oral Tablet Metronidazole 05/19/2021 12:00:00 AM EDT ORAL active [facility] ([facility]) Fluconazole 150 MG Oral Tablet Fluconazole 05/19/2021 12:00:00 AM EDT ORAL active [facility] ([facility]) Ciprofloxacin 250 MG Oral Tablet [Cipro] Cipro 05/08/2021 12:00: 00 AM EDT ORAL completed [facility] ([facility]) Emgality Emgality 05/07/2021 12:00:00 AM EDT activ e [facility] ([facility]) Fluconazole 150 MG Oral Tablet Fluconazole 05/07/2021 12:00:00 AM EDT ORAL active [facility] ([facility]) Vitamin B 12 1 MG Oral Tablet Vitamin B-12 03/24/2021 12:00:00 AM EDT ORAL active [facility] ([facility]) rizatriptan 10 MG Disintegrating Oral Tablet Rizatriptan Joel zoate 01/02/2021 12:00:00 AM EDT completed [facility] ([facility]) rizatriptan 10 MG Disintegrating Oral Tablet Rizatriptan Joel zoate 01/02/2021 12:00:00 AM EDT active M [facility]ENT ([facility]) tizanidine 4 MG Oral Tablet Tizanidine HCL 12/24/2020 12:00:00 AM EDT ORAL completed [facility] ([facility]) Naproxen 500 MG Oral Tablet Naproxen 12/24/2020 12:00:00 AM EDT ORAL completed [facility] ([facility]) Ketorolac (Toradol) Inj 30MG/ML 12/21/2020 12:00:00 AM EDT completed [facility] ([facility]) Medication administered onsite Ketorolac (Toradol) Inj 30MG/ML 11/30/2020 12:00:00 AM EDT completed [facility] ([facility]) Medication administered onsite Pseudoephedrine Hydrochloride 60 MG Oral Tablet Pseudoephedr ine HCL 09/17/2020 12:00:00 AM EST ORAL completed [facility] ([facility]) Aimovig Aimovig 08/29/2020 12:00:00 AM EST active [facility] ([facility]) Vraylar Vraylar 08/10/2020 12:00:00 AM EST ORAL active [facility] ([facility]) Ibuprofen 800 MG Oral Tablet Ibuprofen 08/09/2020 12:00:00 AM EST active [facility] ([facility]) [place] Carbonate 600 MG Oral Capsule [place] Carbonate 12:00:00 AM EST ORAL active [facility] ([facility]) [place] Carbonate 150 MG Oral Capsule [place] Carbonate 12:00:00 AM EST ORAL active [facility] ([facility]) rizatriptan 10 MG Disintegrating Oral Tablet [Maxalt] Maxalt -GRANTS MANAGER 08/04/2020 12:00:00 AM EST ORAL completed [facility] ([facility]) 24 HR Nicotine 0.583 MG/HR Transdermal Patch Nicotine 07/24/2020 12:00:00 AM EST completed [facility] ([facility]) Ofloxacin 3 MG/ML Ophthalmic Solution Ofloxacin (Ophthalmic) 05/26/2020 12:00:00 AM EDT completed [facility] ([facility]) Ergocalciferol 56442 UNT Oral Capsule Vitamin D (Ergocalcife rol) 05/13/2020 12:00:00 AM EDT ORAL active M [facility] ([facility]) montelukast 10 MG Oral Tablet Montelukast Sodium 05/13/2020 12:00:00 AM EDT ORAL active [facility] ([facility]) Flonase Allergy Relief Flonase Allergy Relief 05/13/2020 12:00:00 AM EDT NASAL active [facility] ([facility]) Amitriptyline Hydrochloride 10 MG Oral Tablet Amitriptyline HCL 04/18/2020 12:00:00 AM EDT ORAL completed [facility] ([facility] Fluconazole 150 MG Oral Tablet Fluconazole 04/01/2020 12:00:00 AM EDT ORAL completed [facility] ([facility]) Escitalopram 10 MG Oral Tablet [Lexapro] Lexapro 04/01/2020 12:00: 00 AM EDT ORAL completed [facility] ([facility]) Sumatriptan Succinate Sumatriptan Succinate 03/25/2020 12:00:00 AM EDT completed [facility] ([facility]) 24 HR Propranolol Hydrochloride 60 MG Extended Release Oral Capsule Propranolol HCL ER 03/25/2020 12:00:00 AM EDT ORAL completed [facility] ([facility]) Loratadine 10 MG Oral Tablet [Claritin] Claritin 03/25/2020 12:00:0 0 AM EDT ORAL completed [facility] ([facility]) Insurance Providers Payer name Policy type / Coverage type Policy ID Covered libertarian ID Covered libertarian's relationship to kyle Policy Kyle Plan Information Medicaid Dental S [id number] [facility] I [id number] Self [id number] [facility] Medigap Part B [id number] Self [employer] COMM[employer]ITY [employer]AN MCDHMO [id number] SP [id number] [facility] Health Maintenance Organization (HMO) [id number] Self [employer] COMMUNITY PLAN MCDHMO [id number] SP [id number] [employer] COMMUNITY PLAN MCDHMO [id number] SP [id number] UNHC AMERICHOICE XIX -HMO [id number] 18 [id number] [employer] COMMUNITY PLAN MCDHMO [id number] SP [id number] [place] [id number] SP [id number] [place] [id number] SP [id number] [employer] COMMUNITY PLAN MCDHMO [id number] SP [id number] SELF PAY ONLY [id number] SP [id number] [facility] COMMUNITY [place] [id number] 18 [id number] UNHC AMERICHOICE XIX -HMO [id number] 18 [id number] [employer] COMMUNITY PLAN MCDHMO [id number] SP [id number] [facility] COMMUNTY PLAN MC [id number] 18 [id number] UN[employer] COMMUNITY PLAN XIX [id number] 18 [id number] [facility] [id number] SP [id number] MEDICAID [id number] SP [id number] [employer] COMMUNITY PLAN MCDHMO [id number] SP [id number] [facility] Community Plan Commercial [id number] Self [id number] [facility] Community Plan Commercial [id number] Self [id number] [facility] Communty Plan Medicaid [id number] Self [id number] [facility] Health Maintenance Organization (HMO) [id number] Self [id number] [facility] Community Plan Commercial [id number] Self [id number] [facility] Communty Plan Medicaid [id number] 0.6939.0 Self [id number] [facility] Community Plan Commercial [id number] .[id number] Self [id number] [facility] Communty Plan Medicaid [id number] 0.6939.0 Self [id number] [facility] Community Plan Commercial [id number] .[id number] Self [id number] [facility] Communty Plan Medicaid [id number] 0.6939.0 Self [id number] [facility] Community Plan Commercial [id number] .[id number] Self [id number] [facility] Communty Plan Medicaid [id number] 0.6939.0 Self [id number] [facility] Community Plan Commercial [id number] Self [id number] [facility] COMMUNITY PLAN [id number] 18 [id number] [facility] Community Plan Commercial [id number] .[id number] Self [id number] [facility] Communty Plan Medicaid [id number] 0.6939.0 Self [id number] [facility] Community Plan Commercial [id number] .[id number] Self [id number] [facility] Communty Plan Medicaid [id number] 0.6939.0 Self [id number] [facility] Community Plan Commercial [id number] Self [id number] [facility] Community Plan Commercial [id number] .[id number] Self [id number] [facility] Communty Plan Medicaid [id number] 0.6939.0 Self [id number] [facility] Community Plan Commercial [id number] .[id number] Self [id number] [facility] Communty Plan Medicaid [id number] 0.6939.0 Self [id number] [facility] Communty Plan Medicaid [id number] 0.6939.0 Self [id number] [facility] Community Plan Commercial [id number] .[id number] Self [id number] [place] [id number] [facility] O [id number] S [id number] [facility] Communty Plan Medicaid [id number] 0.6939.0 Self [id number] Medicaid Commercial [id number] Self [id number] MEDICAID -PHYSICIAN [id number] MEDICAID -O/P EMERGENCY ROOM [id number] [facility] [place] [id number] 18 [id number] SELF PAY ONLY UNAVAILABLE SP UNAV AILABLE [facility] Community Plan Medicaid [id number] Self [id number] [facility](MCAID) O [id number] S [id number] [facility] HEA [id number] S [id number] [facility](MCAID) O [id number] S [id number] [facility] Health Maintenance Organization (HMO) [id number] Family Dependent [employer] AMERICHOICE XIX -HMO [id number] 18 [id number] [facility] [place] [id number] 10 [id number] [facility](MCAID) O [id number] S [id number] D Managed Care [employer] P [id number] S [id number] [facility] Health Maintenance Organization (HMO) [id number] Self UNHC AMERICHOICE XIX -HMO [id number] 18 [id number] D Managed Care [facility] P UNAVAILABLE S UNAVAILABLE Medicaid Dental S UNAVAILABLE S UN AVAILABLE [facility] [id number] SP [id number] [facility] [id number] SP [id number] MEDICAID [id number] SP [id number] O BLUE [id number] SP [id number] O BLUE [id number] SP [id number] [facility] [id number] [facility] [id number] MEDICAID [id number] SP [id number] [facility] [id number] SP [id number] UNHC COMMUNITY PLAN MCDO [id number] SP [id number] [facility] [id number] SP [id number] UN[employer] COMMUNITY PLAN MCDHMO [id number] SP [id number] [facility] LIBBY [id number] SP [id number] UNHC COMMUNITY PLAN MCDO [id number] SP [id number] [facility] COMMUNITY PLAN [place] [id number] 18 [id number] [facility] COMMUNTY PLAN [id number] 18 [id number] [facility] COMMUNITY PLAN XIX [id number] 18 [id number] Problems, Conditions, and Diagnoses Code Display Name Description Problem Type Effective Dates Data Source(s) F1220 Cannabis dependence, uncomplicated Cannabis depe ndence, uncomplicated Diagnosis 06/03/2021 03:45:00 PM EDT [facility] F3160 Bipolar disorder, current episode mixed, unspecified Bipolar disorder, current episode mixed, unspecified Diagnosis 06/03/2021 03:45:00 PM ED T [facility] Z1152 ENCOUNTER FOR SCREENING FOR COVID-19 ENCOUNTER F OR SCREENING FOR COVID-19 Diagnosis 05/12/2021 08:29:00 AM EDT [facility] Z5320 Procedure and treatment not carried out because of patient's decision for unspecified reasons Procedure and treatment not carried out because of patient's decision for unspecified reasons Diagnosis 05/12/2021 07:44:00 AM EDT [facility] L04518 Nicotine dependence, cigarettes, uncompl icated Nicotine dependence, cigarettes, uncomplicated Diagnosis 05/12/2021 07:44:[address] [facility] J029 Acute pharyngitis, unspecified Acute pharyngitis, unsp ecified Diagnosis 05/12/2021 07:44:00 AM EDT [facility] Z113 Encounter for screening for infections with a predominantly sexual mode of transmission Encounter for screening for infections w ith a predominantly sexual mode of transmission Diagnosis 05/07/2021 01:50:00 PM EDT [facility] B373 Candidiasis of vulva and vagina Candidiasis of vulva a nd vagina Diagnosis 05/07/2021 01:50:00 PM EDT [facility] D519 Vitamin B12 deficiency anemia, unspecifi ed Vitamin B12 deficiency anemia, unspecified Diagnosis 05/07/2021 01:23:00 PM EDT [facility] E559 Vitamin D deficiency, unspecified Vitamin D defi ciency, unspecified Diagnosis 05/07/2021 01:23:00 PM EDT [facility] T27493 Migraine without aura, not intractable, without status migrainosus Migraine without aura, not intractable, without status migrainosus Diagnosis 05/07/2021 01:23:00 PM EDT 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 J069 Acute upper respiratory infection, unspe cified Acute upper respiratory infection, unspecified Diagnosis 04/18/2021 02:00:00 PM EDT [facility] E611 Iron deficiency Iron deficiency Diagnosis 02/04/2021 12:5 9:00 PM EDT [facility] J309 Allergic rhinitis, unspecified Allergic rhinitis, unsp ecified Diagnosis 02/04/2021 12:59:00 PM EDT [facility] D693 Immune thrombocytopenic purpura Immune thrombocytopeni c purpura Diagnosis 02/04/2021 12:59:00 PM EDT [facility] R946 Abnormal results of thyroid function sameer dies Abnormal results of thyroid function studies Diagnosis 01/27/2021 12:33:00 PM EDT [facility] F48064 Muscle spasm of back Muscle spasm of back Diagnosis 12/24/2020 01:50:00 PM EDT [facility] R05 Cough Cough Diagnosis 12/13/2020 02:36:00 PM ED T 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 Diagnosis 09/17/2020 10:56:00 AM [facility] J29662 Migraine with aura, not intractable, wit hout status migrainosus Migraine with aura, not intractable, without status migrainosus Diagnosis 09/02/2020 09:21:00 AM [facility] E0590 Thyrotoxicosis, unspecified without thyr otoxic crisis or storm Thyrotoxicosis, unspecified without thyrotoxic crisis or storm Diagnosis 08/01/2020 02:57:00 PM [facility] F609 Personality disorder, unspecified Personality di sorder, unspecified Diagnosis 08/01/2020 02:57:00 PM [facility] M96034 Other mucopurulent conjunctivitis, bilat eral Other mucopurulent conjunctivitis, bilateral Diagnosis 05/26/2020 01:52:[address] [facility] Z23 Encounter for immunization Encounter for immunization Diagnosis 05/13/2020 12:59:00 PM EDT [facility] D649 Anemia, unspecified Anemia, unspecified Diagnosis 0 05/13/2020 12:59:00 PM EDT [facility] F339 Major depressive disorder, recurrent, un specified Major depressive disorder, recurrent, unspecified Diagnosis 05/13/2020 12:59:00 PM EDT [facility] D51.9 Cobalamin deficiency Cobalamin deficiency Problem 05/07/2021 12:00:00 AM EDT [facility] ([facility]) G43.009 Migraine without aura, not refractory Mi graine without aura, not refractory Problem 02/04/2021 12:00:00 AM EDT [facility] ([facility]) J30.9 Allergic rhinitis Allergic rhinitis Problem 02/04/2021 12:00:00 AM EDT [facility] ([facility]) F12.20 Cannabis dependence, uncomplicated Cannabis depe ndence, uncomplicated Problem 06/19/2020 12:00:00 AM EDT [facility] ([facility]) F60.9 Personality disorder Personality disorder Problem 06/19/2020 12:00:00 AM EDT [facility] ([facility]) Surgeries/Procedures Procedure Description Date Indications Data Source(s) Brief Emotional/Behav Assessment W/ Scoring Doc Per Standard Inst 05/07/2021 12:00:00 AM EDT [facility] ([facility]) Admin Patient Focused Health Risk Assessment Instrument 05/07/2021 12:00:00 AM EDT [facility] ([facility]) OFFICE OUTPATIENT NEW 30 MINUTES 05/07/2021 12:00:00 A M EDT [facility] ([facility]) OFFICE OUTPATIENT VISIT 15 MINUTES 05/07/2021 12:00:00 AM EDT [facility] ([facility]) OFFICE OUTPATIENT VISIT 25 MINUTES 04/30/2021 12:00:00 AM EDT [facility] ([facility]) OFFICE OUTPATIENT NEW 10 MINUTES 04/18/2021 12:00:00 A M EDT [facility] ([facility]) Pulse Oximetry Single Determination 04/13/2021 12:00:0 0 AM EDT [facility] ([facility]) OFFICE OUTPATIENT VISIT 15 MINUTES 04/13/2021 12:00:00 AM EDT [facility] ([facility]) OFFICE OUTPATIENT VISIT 15 MINUTES 02/04/2021 12:00:00 AM EDT [facility] ([facility]) OFFICE OUTPATIENT VISIT 15 MINUTES 01/30/2021 12:00:00 AM EDT [facility] ([facility] OFFICE OUTPATIENT VISIT 25 MINUTES 01/27/2021 12:00:00 AM EDT [facility] ([facility]) OFFICE OUTPATIENT VISIT 15 MINUTES 12/24/2020 12:00:00 AM EDT [facility] ([facility]) OFFICE OUTPATIENT VISIT 15 MINUTES 12/21/2020 12:00:00 AM EDT [facility] ([facility]) OFFICE OUTPATIENT VISIT 15 MINUTES 12/13/2020 12:00:00 AM EDT [facility] ([facility]) OFFICE OUTPATIENT NEW 10 MINUTES 11/30/2020 12:00:00 A M EDT [facility] ([facility]) OFFICE OUTPATIENT VISIT 25 MINUTES 10/25/2020 12:00:00 AM EST [facility] ([facility]) Psychiatric Diag Eval W/Medical Service 09/24/2020 12: 00:00 AM EST [facility] ([facility]) OFFICE OUTPATIENT VISIT 25 MINUTES 08/09/2020 12:00:00 AM EST [facility] ([facility]) Psychiatric Diagnostic Evaluation 06/19/2020 12:00:00 AM EDT [facility] ([facility]) Injection, Single Or Multiple trigger points one or two musc les 05/22/2020 12:00:00 AM EDT [facility] ([facility]) INJECTION ANES OTHER PERIPHERAL NERVE/BRANCH 0 12:00:00 AM EDT [facility] ([facility]) Results ID Date Data Source [id number] 06/04/2021 07:40:00 PM EDT [facility] Name Value Range Interpretation Code Description Data Yadi rce(s) Supporting Document(s) SARS coronavirus 2 RNA [Presence] in Res piratory specimen by ANNE with probe detection NEGATIVE [facility] This lab was ordered by [facility] a nd reported by [facility]. ID Date Data Source [id number] 05/30/2021 02:29:00 PM EDT [facility] ([facility]) Name Value Range Interpretation Code Description Data Yadi rce(s) Supporting Document(s) White Blood Count 17.0 10 4.0-10.0 Above high normal [facility] ([facility]) Red Blood Count 4.67 10 4.00-5.40 Normal (applies to non-numeric results) [facility] ([facility]) Hemoglobin 14.4 g/dL 12.0-15.5 Normal (applies to non-numeric resul ts) [facility] ([facility]) Hematocrit 44.1 % 36.0-47.0 Normal (applies to non-numeric resul ts) [facility] ([facility]) Mean Corpuscular Volume 94.4 fl 80.0-96.0 Normal ( applies to non-numeric results) [facility] ([facility]) Mean Corpuscular HGB Conc 32.7 g/dL 32.0-36.5 Normal (applies to non-numeric results) [facility] ([facility]) Mean Corpuscular Hemoglobin 30.8 pg 27.0-33.0 Norm al (applies to non-numeric results) [facility] ([facility]) Nucleated Red Blood Cell % 0.0 % 0-0 Normal (applies to n on-numeric results) [facility] ([facility]) Red Cell Distribution Width 13.5 % 11.5-14.5 Norm al (applies to non-numeric results) [facility] ([facility]) Platelet Count, Automated 356 10 150-450 Normal (applies to non-numeric results) [facility] ([facility]) ID Date Data Source [id number] 05/30/2021 02:29:00 PM EDT [facility] ([facility]) Name Value Range Interpretation Code Description Data Yadi rce(s) Supporting Document(s) Ethanol [Mass/volume] in Serum or Plasma Laboratory test result 0.000-0.010 Normal (applies to non-numeric results) [facility] ([facility]) <content>note:<nlbl:demographic_changed> </content>
<content></content> Salicylates [Mass/volume] in Serum or Plasma 5.4 mg/dL 5.0 -30.0 Normal (applies to non-numeric results) [facility] ([facility]) <content>note:<nlbl:demographic_changed> </content>
<content></content> Acetaminophen [Mass/volume] in Serum or Plasma Laboratory test r esult 10.0-30.0 Below low normal [facility] ([facility]) <content>note:<nlbl:demographic_changed> </content>
<content></content> Thyrotropin [Units/volume] in Serum or Plasma 0.283 uIU/ML 0. 358-3.740 Below low normal [facility] ([facility]) <content>note:<nlbl:demographic_changed> </content>
<content></content> Choriogonadotropin.beta subunit ( test) [Pres ence] in Serum or Plasma Laboratory test result Normal (applies to non-numeric results) [facility] ([facility]) <content>note:<nlbl:demographic_changed> </content>
<content></content> ID Date Data Source [id number] 05/30/2021 02:29:00 PM EDT [facility] ([facility]) Name Value Range Interpretation Code Description Data Yadi rce(s) Supporting Document(s) Glucose, Fasting 96 mg/dL 70-100 Normal (applies to non-numeric results) [facility] ([facility]) Blood Urea Nitrogen 18 mg/dL 7-18 Normal (applies to non-nume boby results) [facility] ([facility]) Creatinine For GFR 1.05 mg/dL 0.55-1.30 Normal (applies to non -numeric results) [facility] ([facility]) Sodium Level 141 meq/L 136-145 Normal (applies to non-numeric res ults) [facility] ([facility]) Glomerular Filtration Rate Laboratory test result Normal (applies to non- numeric results) [facility] ([facility]) <content>Units are mL/min/1.73 m2</content>
<content></content>
<content>Chronic Kidney Disease Staging per NKF:</content>
<content></content>
<content>Stage I & II GFR >=60 Normal to Mildly Decreased</content>
<content>Stage III GFR 30- 59 Moderately Decreased</content>
<content>Stage IV GFR 15-29 Severely Decreased</content>
<content>Stage V GFR <15 Very Little GFR Left</content>
<content>ESRD GFR <15 on [employer]PRESENTATIVE</content>
<content></content> Potassium Serum 3.8 meq/L 3.5-5.1 Normal (applies to non-numeric results) [facility] ([facility]) Chloride Level 107 meq/L 98-107 Normal (applies to non-numeric r esults) [facility] ([facility]) Carbon Dioxide Level 26 meq/L 21-32 Normal (applies to non-num maye results) [facility] ([facility]) Anion Gap 8 meq/L 8-16 Normal (applies to non-numeric resul ts) [facility] ([facility]) Calcium Level 10.2 mg/dL 8.5-10.1 Above high normal [facility] ([facility]) ID Date Data Source [id number] 05/30/2021 02:29:00 PM EDT [facility] ([facility]) Name Value Range Interpretation Code Description Data Yadi rce(s) Supporting Document(s) Alkaline Phosphatase 83 U/L 45-117 Normal (applies to non-num maye results) [facility] ([facility]) Alt/SGPT 23 U/L 12-78 Normal (applies to non-numeric resul ts) [facility] ([facility]) Ast/Sgot 19 U/L 7-37 Normal (applies to non-numeric resul ts) [facility] ([facility]) Bilirubin,Direct 0.2 mg/dL 0.0-0.2 Normal (applies to non-numeric results) [facility] ([facility]) Bilirubin,Total 0.7 mg/dL 0.2-1.0 Normal (applies to non-numeric results) [facility] ([facility]) Albumin 4.4 GM/DL 3.2-5.2 Normal (applies to non-numeric resul ts) [facility] ([facility]) Total Protein 8.1 GM/DL 6.4-8.2 Normal (applies to non-numeric re sults) [facility] ([facility]) Albumin/Globulin Ratio 1.2 1.2-2.2 Normal (applies to non-n umeric results) [facility] ([facility]) ID Date Data Source [id number] 05/30/2021 02:29:00 PM EDT [facility] ([facility]) Name Value Range Interpretation Code Description Data Yadi rce(s) Supporting Document(s) [place] [Mass/volume] in Serum or Plasma 0.34 meq/L 0.60-1.20 Below low normal [facility] ([facility]) <content>note:<nlbl:demographic_changed> </content>
<content></content> ID Date Data Source [id number] 05/30/2021 02:29:00 PM EDT [facility] ([facility]) Name Value Range Interpretation Code Description Data Yadi rce(s) Supporting Document(s) Influenza A Amplification Laboratory test result Normal (applies to non- numeric results) [facility] ([facility]) Negative results do not preclude influen za or RSV virus infection and should not be used as the sole basis for treatment or other patient management decisions. Influenza B Amplification Laboratory test result Normal (applies to non- numeric results) [facility] ([facility]) Negative results do not preclude influen za or RSV virus infection and should not be used as the sole basis for treatment or other patient management decisions. RSV Amplification Laboratory test result Normal (applies to non-numeric results) [facility] ([facility]) Negative results do not preclude influen za or RSV virus infection and should not be used as the sole basis for treatment or other patient management decisions. Laboratory test finding (navigational concept) Laboratory test r esult Normal (applies to non-numeric results) [facility] ([facility]) A false negative result may [...] pathogens. DISCLAIMER: Testing was performed using the [employer] SARS-CoV-2 test. This test was developed and its performance characteristics determined by [employer]. This test has not been FDA cleared [...] or revoked sooner. ID Date Data Source [id number] 05/30/2021 02:29:00 PM EDT [facility] Name Value Range Interpretation Code Description Data Yadi rce(s) Supporting Document(s) SARS coronavirus 2 RNA [Presence] in Res piratory specimen by ANNE with probe detection NEGATIVE [facility] This lab was ordered by [facility] a nd reported by [facility]. ID Date Data Source [id number] 05/30/2021 01:36:00 PM EDT [facility] ([facility]) Name Value Range Interpretation Code Description Data Yadi rce(s) Supporting Document(s) Barbiturates Urine Laboratory test result Normal (applies to non-numeric results) [facility] ([facility]) Amphetamines Level Urine Laboratory test result Normal (applies to non-numeric results) [facility] ([facility]) Benzodiazepines Urine Laboratory test result [place] (applies to non-numeric results) [facility] ([facility]) Cocaine Metabolite Urine Laboratory test result Above high normal [facility] ([facility]) Cannabinoids Urine Laboratory test result Above high sharon l [facility] ([facility]) Opiates Urine Laboratory test result Normal (applies t o non-numeric results) [facility] ([facility]) Phencyclidine Urine Laboratory test result [place] (applies to non-numeric results) [facility] ([facility]) ALL PRESUMPTIVE POSITIVE FINDINGS AR E UNCONFIRMED [...] result Normal (a pplies to non-numeric results) [facility] ([facility]) ID Date Data Source [id number] 05/16/2021 01:24:00 PM EDT [facility] ([facility]) Name Value Range Interpretation Code Description Data Yadi rce(s) Supporting Document(s) Cobalamin (Vitamin B12) [Mass/volume] in Serum or Plasma 353 pg/mL 2 32-0345 [facility]) .~.~<DG1.3.1>D51.9</DG1.3.1><DG1.3.1>D51.9</DG1.3.1><DG1.3.1>E55.9</DG1.3.1><DG1 .3.1 Is patient fasting? N~.~.~<DG1.3.1>D51.9</DG1.3.1><DG1.3.1>D51.9</DG1.3.1><DG1.3.1>E55.9</DG1.3. .~.~<DG1.3.1> D51.9</DG1.3.1><DG1.3.1>D51.9</DG1.3.1><DG1.3.1>E55.9</DG1.3.1><DG1.3.1 .~.~<DG1.3.1>D51.9</DG1.3.1><DG1.3.1>D51.9</DG1.3.1><DG1.3.1>E55.9</DG1.3.1><DG1 .3.1 .~.~<DG1.3.1>D51.9</DG1.3.1><DG1.3.1> D51.9</DG1.3.1><DG1.3.1>E55.9</DG1.3.1><DG1.3.1 ID Date Data Source [id number] 05/16/2021 01:24:00 PM EDT [facility] ([facility]) Name Value Range Interpretation Code Description Data Yadi rce(s) Supporting Document(s) CBC W/Automated Diff Laboratory test result [facility] ([facility]) COMPLETE BLOOD COUNT WBC 12.6 10^3/uL 4.2-11.0 Above high normal [facility] ([facility]) .~.~<DG1.3.1>D51.9</DG1.3.1><DG1.3.1>D51.9</DG1.3.1><DG1.3.1>E55.9</DG1.3.1><DG1 .3.1 Is patient fasting? N~.~.~<DG1.3.1>D51.9</DG1.3.1><DG1.3.1>D51.9</DG1.3.1><DG1.3.1>E55.9</DG1.3. .~.~<DG1.3.1> D51.9</DG1.3.1><DG1.3.1>D51.9</DG1.3.1><DG1.3.1>E55.9</DG1.3.1><DG1.3.1 .~.~<DG1.3.1>D51.9</DG1.3.1><DG1.3.1>D51.9</DG1.3.1><DG1.3.1>E55.9</DG1.3.1><DG1 .3.1 .~.~<DG1.3.1>D51.9</DG1.3.1><DG1.3.1> D51.9</DG1.3.1><DG1.3.1>E55.9</DG1.3.1><DG1.3.1 RBC 4.44 10^6/uL 4.20-5.40 [facility]) .~.~<DG1.3.1>D51.9</DG1.3.1><DG1.3.1>D51.9</DG1.3.1><DG1.3.1>E55.9</DG1.3.1><DG1 .3.1 Is patient fasting? N~.~.~<DG1.3.1>D51.9</DG1.3.1><DG1.3.1>D51.9</DG1.3.1><DG1.3.1>E55.9</DG1.3. .~.~<DG1.3.1> D51.9</DG1.3.1><DG1.3.1>D51.9</DG1.3.1><DG1.3.1>E55.9</DG1.3.1><DG1.3.1 .~.~<DG1.3.1>D51.9</DG1.3.1><DG1.3.1>D51.9</DG1.3.1><DG1.3.1>E55.9</DG1.3.1><DG1 .3.1 .~.~<DG1.3.1>D51.9</DG1.3.1><DG1.3.1> D51.9</DG1.3.1><DG1.3.1>E55.9</DG1.3.1><DG1.3.1 Hemoglobin 14.0 g/dL 12.0-16.0 [facility] ([facility]) .~.~<DG1.3.1>D51.9</DG1.3.1><DG1.3.1>D51.9</DG1.3.1><DG1.3.1>E55.9</DG1.3.1><DG1 .3.1 Is patient fasting? N~.~.~<DG1.3.1>D51.9</DG1.3.1><DG1.3.1>D51.9</DG1.3.1><DG1.3.1>E55.9</DG1.3. .~.~<DG1.3.1> D51.9</DG1.3.1><DG1.3.1>D51.9</DG1.3.1><DG1.3.1>E55.9</DG1.3.1><DG1.3.1 .~.~<DG1.3.1>D51.9</DG1.3.1><DG1.3.1>D51.9</DG1.3.1><DG1.3.1>E55.9</DG1.3.1><DG1 .3.1 .~.~<DG1.3.1>D51.9</DG1.3.1><DG1.3.1> D51.9</DG1.3.1><DG1.3.1>E55.9</DG1.3.1><DG1.3.1 Hematocrit 41.6 % 37.0-47.0 [facility] ([facility]) .~.~<DG1.3.1>D51.9</DG1.3.1><DG1.3.1>D51.9</DG1.3.1><DG1.3.1>E55.9</DG1.3.1><DG1 .3.1 Is patient fasting? N~.~.~<DG1.3.1>D51.9</DG1.3.1><DG1.3.1>D51.9</DG1.3.1><DG1.3.1>E55.9</DG1.3. .~.~<DG1.3.1> D51.9</DG1.3.1><DG1.3.1>D51.9</DG1.3.1><DG1.3.1>E55.9</DG1.3.1><DG1.3.1 .~.~<DG1.3.1>D51.9</DG1.3.1><DG1.3.1>D51.9</DG1.3.1><DG1.3.1>E55.9</DG1.3.1><DG1 .3.1 .~.~<DG1.3.1>D51.9</DG1.3.1><DG1.3.1> D51.9</DG1.3.1><DG1.3.1>E55.9</DG1.3.1><DG1.3.1 MCV 93.7 fL 81.0-101 [facility] ([facility]) .~.~<DG1.3.1>D51.9</DG1.3.1><DG1.3.1>D51.9</DG1.3.1><DG1.3.1>E55.9</DG1.3.1><DG1 .3.1 Is patient fasting? N~.~.~<DG1.3.1>D51.9</DG1.3.1><DG1.3.1>D51.9</DG1.3.1><DG1.3.1>E55.9</DG1.3. .~.~<DG1.3.1> D51.9</DG1.3.1><DG1.3.1>D51.9</DG1.3.1><DG1.3.1>E55.9</DG1.3.1><DG1.3.1 .~.~<DG1.3.1>D51.9</DG1.3.1><DG1.3.1>D51.9</DG1.3.1><DG1.3.1>E55.9</DG1.3.1><DG1 .3.1 .~.~<DG1.3.1>D51.9</DG1.3.1><DG1.3.1> D51.9</DG1.3.1><DG1.3.1>E55.9</DG1.3.1><DG1.3.1 MCH 31.5 pg 27.0-34.0 [facility] ([facility]) .~.~<DG1.3.1>D51.9</DG1.3.1><DG1.3.1>D51.9</DG1.3.1><DG1.3.1>E55.9</DG1.3.1><DG1 .3.1 Is patient fasting? N~.~.~<DG1.3.1>D51.9</DG1.3.1><DG1.3.1>D51.9</DG1.3.1><DG1.3.1>E55.9</DG1.3. .~.~<DG1.3.1> D51.9</DG1.3.1><DG1.3.1>D51.9</DG1.3.1><DG1.3.1>E55.9</DG1.3.1><DG1.3.1 .~.~<DG1.3.1>D51.9</DG1.3.1><DG1.3.1>D51.9</DG1.3.1><DG1.3.1>E55.9</DG1.3.1><DG1 .3.1 .~.~<DG1.3.1>D51.9</DG1.3.1><DG1.3.1> D51.9</DG1.3.1><DG1.3.1>E55.9</DG1.3.1><DG1.3.1 MCHC 33.7 g/dL 31.0-36.0 [facility] ([facility]) .~.~<DG1.3.1>D51.9</DG1.3.1><DG1.3.1>D51.9</DG1.3.1><DG1.3.1>E55.9</DG1.3.1><DG1 .3.1 Is patient fasting? N~.~.~<DG1.3.1>D51.9</DG1.3.1><DG1.3.1>D51.9</DG1.3.1><DG1.3.1>E55.9</DG1.3. .~.~<DG1.3.1> D51.9</DG1.3.1><DG1.3.1>D51.9</DG1.3.1><DG1.3.1>E55.9</DG1.3.1><DG1.3.1 .~.~<DG1.3.1>D51.9</DG1.3.1><DG1.3.1>D51.9</DG1.3.1><DG1.3.1>E55.9</DG1.3.1><DG1 .3.1 .~.~<DG1.3.1>D51.9</DG1.3.1><DG1.3.1> D51.9</DG1.3.1><DG1.3.1>E55.9</DG1.3.1><DG1.3.1 RDW 13.9 % 11.5-14.5 [facility] ([facility]) .~.~<DG1.3.1>D51.9</DG1.3.1><DG1.3.1>D51.9</DG1.3.1><DG1.3.1>E55.9</DG1.3.1><DG1 .3.1 Is patient fasting? N~.~.~<DG1.3.1>D51.9</DG1.3.1><DG1.3.1>D51.9</DG1.3.1><DG1.3.1>E55.9</DG1.3. .~.~<DG1.3.1> D51.9</DG1.3.1><DG1.3.1>D51.9</DG1.3.1><DG1.3.1>E55.9</DG1.3.1><DG1.3.1 .~.~<DG1.3.1>D51.9</DG1.3.1><DG1.3.1>D51.9</DG1.3.1><DG1.3.1>E55.9</DG1.3.1><DG1 .3.1 .~.~<DG1.3.1>D51.9</DG1.3.1><DG1.3.1> D51.9</DG1.3.1><DG1.3.1>E55.9</DG1.3.1><DG1.3.1 Platelets 210 10^3/uL 150-450 [facility] ([facility]) .~.~<DG1.3.1>D51.9</DG1.3.1><DG1.3.1>D51.9</DG1.3.1><DG1.3.1>E55.9</DG1.3.1><DG1 .3.1 Is patient fasting? N~.~.~<DG1.3.1>D51.9</DG1.3.1><DG1.3.1>D51.9</DG1.3.1><DG1.3.1>E55.9</DG1.3. .~.~<DG1.3.1> D51.9</DG1.3.1><DG1.3.1>D51.9</DG1.3.1><DG1.3.1>E55.9</DG1.3.1><DG1.3.1 .~.~<DG1.3.1>D51.9</DG1.3.1><DG1.3.1>D51.9</DG1.3.1><DG1.3.1>E55.9</DG1.3.1><DG1 .3.1 .~.~<DG1.3.1>D51.9</DG1.3.1><DG1.3.1> D51.9</DG1.3.1><DG1.3.1>E55.9</DG1.3.1><DG1.3.1 MPV 9.1 fL 7.4-10.4 [facility] ([facility]) .~.~<DG1.3.1>D51.9</DG1.3.1><DG1.3.1>D51.9</DG1.3.1><DG1.3.1>E55.9</DG1.3.1><DG1 .3.1 Is patient fasting? N~.~.~<DG1.3.1>D51.9</DG1.3.1><DG1.3.1>D51.9</DG1.3.1><DG1.3.1>E55.9</DG1.3. .~.~<DG1.3.1> D51.9</DG1.3.1><DG1.3.1>D51.9</DG1.3.1><DG1.3.1>E55.9</DG1.3.1><DG1.3.1 .~.~<DG1.3.1>D51.9</DG1.3.1><DG1.3.1>D51.9</DG1.3.1><DG1.3.1>E55.9</DG1.3.1><DG1 .3.1 .~.~<DG1.3.1>D51.9</DG1.3.1><DG1.3.1> D51.9</DG1.3.1><DG1.3.1>E55.9</DG1.3.1><DG1.3.1 Neut 66.7 % 37.0-80.0 [facility] ([facility]) .~.~<DG1.3.1>D51.9</DG1.3.1><DG1.3.1>D51.9</DG1.3.1><DG1.3.1>E55.9</DG1.3.1><DG1 .3.1 Is patient fasting? N~.~.~<DG1.3.1>D51.9</DG1.3.1><DG1.3.1>D51.9</DG1.3.1><DG1.3.1>E55.9</DG1.3. .~.~<DG1.3.1> D51.9</DG1.3.1><DG1.3.1>D51.9</DG1.3.1><DG1.3.1>E55.9</DG1.3.1><DG1.3.1 .~.~<DG1.3.1>D51.9</DG1.3.1><DG1.3.1>D51.9</DG1.3.1><DG1.3.1>E55.9</DG1.3.1><DG1 .3.1 .~.~<DG1.3.1>D51.9</DG1.3.1><DG1.3.1> D51.9</DG1.3.1><DG1.3.1>E55.9</DG1.3.1><DG1.3.1 Lymph 24.8 % 25.0-40.0 Below low normal [facility] ( [facility]) .~.~<DG1.3.1>D51.9</DG1.3.1><DG1.3.1>D51.9</DG1.3.1><DG1.3.1>E55.9</DG1.3.1><DG1 .3.1 Is patient fasting? N~.~.~<DG1.3.1>D51.9</DG1.3.1><DG1.3.1>D51.9</DG1.3.1><DG1.3.1>E55.9</DG1.3. .~.~<DG1.3.1> D51.9</DG1.3.1><DG1.3.1>D51.9</DG1.3.1><DG1.3.1>E55.9</DG1.3.1><DG1.3.1 .~.~<DG1.3.1>D51.9</DG1.3.1><DG1.3.1>D51.9</DG1.3.1><DG1.3.1>E55.9</DG1.3.1><DG1 .3.1 .~.~<DG1.3.1>D51.9</DG1.3.1><DG1.3.1> D51.9</DG1.3.1><DG1.3.1>E55.9</DG1.3.1><DG1.3.1 [place] 6.6 % 3.0-8.0 [facility] ([facility]) .~.~<DG1.3.1>D51.9</DG1.3.1><DG1.3.1>D51.9</DG1.3.1><DG1.3.1>E55.9</DG1.3.1><DG1 .3.1 Is patient fasting? N~.~.~<DG1.3.1>D51.9</DG1.3.1><DG1.3.1>D51.9</DG1.3.1><DG1.3.1>E55.9</DG1.3. .~.~<DG1.3.1> D51.9</DG1.3.1><DG1.3.1>D51.9</DG1.3.1><DG1.3.1>E55.9</DG1.3.1><DG1.3.1 .~.~<DG1.3.1>D51.9</DG1.3.1><DG1.3.1>D51.9</DG1.3.1><DG1.3.1>E55.9</DG1.3.1><DG1 .3.1 .~.~<DG1.3.1>D51.9</DG1.3.1><DG1.3.1> D51.9</DG1.3.1><DG1.3.1>E55.9</DG1.3.1><DG1.3.1 Eos 1.4 % 0.0-7.0 [facility] ([facility]) .~.~<DG1.3.1>D51.9</DG1.3.1><DG1.3.1>D51.9</DG1.3.1><DG1.3.1>E55.9</DG1.3.1><DG1 .3.1 Is patient fasting? N~.~.~<DG1.3.1>D51.9</DG1.3.1><DG1.3.1>D51.9</DG1.3.1><DG1.3.1>E55.9</DG1.3. .~.~<DG1.3.1> D51.9</DG1.3.1><DG1.3.1>D51.9</DG1.3.1><DG1.3.1>E55.9</DG1.3.1><DG1.3.1 .~.~<DG1.3.1>D51.9</DG1.3.1><DG1.3.1>D51.9</DG1.3.1><DG1.3.1>E55.9</DG1.3.1><DG1 .3.1 .~.~<DG1.3.1>D51.9</DG1.3.1><DG1.3.1> D51.9</DG1.3.1><DG1.3.1>E55.9</DG1.3.1><DG1.3.1 Baso 0.2 % 0.0-2.5 [facility] ([facility]) .~.~<DG1.3.1>D51.9</DG1.3.1><DG1.3.1>D51.9</DG1.3.1><DG1.3.1>E55.9</DG1.3.1><DG1 .3.1 Is patient fasting? N~.~.~<DG1.3.1>D51.9</DG1.3.1><DG1.3.1>D51.9</DG1.3.1><DG1.3.1>E55.9</DG1.3. .~.~<DG1.3.1> D51.9</DG1.3.1><DG1.3.1>D51.9</DG1.3.1><DG1.3.1>E55.9</DG1.3.1><DG1.3.1 .~.~<DG1.3.1>D51.9</DG1.3.1><DG1.3.1>D51.9</DG1.3.1><DG1.3.1>E55.9</DG1.3.1><DG1 .3.1 .~.~<DG1.3.1>D51.9</DG1.3.1><DG1.3.1> D51.9</DG1.3.1><DG1.3.1>E55.9</DG1.3.1><DG1.3.1 %NRBC 0.0 % 0.0-0.0 [facility] ([facility]) .~.~<DG1.3.1>D51.9</DG1.3.1><DG1.3.1>D51.9</DG1.3.1><DG1.3.1>E55.9</DG1.3.1><DG1 .3.1 Is patient fasting? N~.~.~<DG1.3.1>D51.9</DG1.3.1><DG1.3.1>D51.9</DG1.3.1><DG1.3.1>E55.9</DG1.3. .~.~<DG1.3.1> D51.9</DG1.3.1><DG1.3.1>D51.9</DG1.3.1><DG1.3.1>E55.9</DG1.3.1><DG1.3.1 .~.~<DG1.3.1>D51.9</DG1.3.1><DG1.3.1>D51.9</DG1.3.1><DG1.3.1>E55.9</DG1.3.1><DG1 .3.1 .~.~<DG1.3.1>D51.9</DG1.3.1><DG1.3.1> D51.9</DG1.3.1><DG1.3.1>E55.9</DG1.3.1><DG1.3.1 %Ig 0.3 % 0.0-0.0 Above high normal [facility] ([facility]) .~.~<DG1.3.1>D51.9</DG1.3.1><DG1.3.1>D51.9</DG1.3.1><DG1.3.1>E55.9</DG1.3.1><DG1 .3.1 Is patient fasting? N~.~.~<DG1.3.1>D51.9</DG1.3.1><DG1.3.1>D51.9</DG1.3.1><DG1.3.1>E55.9</DG1.3. .~.~<DG1.3.1> D51.9</DG1.3.1><DG1.3.1>D51.9</DG1.3.1><DG1.3.1>E55.9</DG1.3.1><DG1.3.1 .~.~<DG1.3.1>D51.9</DG1.3.1><DG1.3.1>D51.9</DG1.3.1><DG1.3.1>E55.9</DG1.3.1><DG1 .3.1 .~.~<DG1.3.1>D51.9</DG1.3.1><DG1.3.1> D51.9</DG1.3.1><DG1.3.1>E55.9</DG1.3.1><DG1.3.1 #Neut 8.36 10^3/uL 2.00-6.90 Above high normal [facility] ([facility]) .~.~<DG1.3.1>D51.9</DG1.3.1><DG1.3.1>D51.9</DG1.3.1><DG1.3.1>E55.9</DG1.3.1><DG1 .3.1 Is patient fasting? N~.~.~<DG1.3.1>D51.9</DG1.3.1><DG1.3.1>D51.9</DG1.3.1><DG1.3.1>E55.9</DG1.3. .~.~<DG1.3.1> D51.9</DG1.3.1><DG1.3.1>D51.9</DG1.3.1><DG1.3.1>E55.9</DG1.3.1><DG1.3.1 .~.~<DG1.3.1>D51.9</DG1.3.1><DG1.3.1>D51.9</DG1.3.1><DG1.3.1>E55.9</DG1.3.1><DG1 .3.1 .~.~<DG1.3.1>D51.9</DG1.3.1><DG1.3.1> D51.9</DG1.3.1><DG1.3.1>E55.9</DG1.3.1><DG1.3.1 #Lymph 3.12 10^3/uL 0.60-3.40 [facility] ([facility]) .~.~<DG1.3.1>D51.9</DG1.3.1><DG1.3.1>D51.9</DG1.3.1><DG1.3.1>E55.9</DG1.3.1><DG1 .3.1 Is patient fasting? N~.~.~<DG1.3.1>D51.9</DG1.3.1><DG1.3.1>D51.9</DG1.3.1><DG1.3.1>E55.9</DG1.3. .~.~<DG1.3.1> D51.9</DG1.3.1><DG1.3.1>D51.9</DG1.3.1><DG1.3.1>E55.9</DG1.3.1><DG1.3.1 .~.~<DG1.3.1>D51.9</DG1.3.1><DG1.3.1>D51.9</DG1.3.1><DG1.3.1>E55.9</DG1.3.1><DG1 .3.1 .~.~<DG1.3.1>D51.9</DG1.3.1><DG1.3.1> D51.9</DG1.3.1><DG1.3.1>E55.9</DG1.3.1><DG1.3.1 #Jersey 0.83 10^3/uL 0.00-0.90 [place] ([facility]) .~.~<DG1.3.1>D51.9</DG1.3.1><DG1.3.1>D51.9</DG1.3.1><DG1.3.1>E55.9</DG1.3.1><DG1 .3.1 Is patient fasting? N~.~.~<DG1.3.1>D51.9</DG1.3.1><DG1.3.1>D51.9</DG1.3.1><DG1.3.1>E55.9</DG1.3. .~.~<DG1.3.1> D51.9</DG1.3.1><DG1.3.1>D51.9</DG1.3.1><DG1.3.1>E55.9</DG1.3.1><DG1.3.1 .~.~<DG1.3.1>D51.9</DG1.3.1><DG1.3.1>D51.9</DG1.3.1><DG1.3.1>E55.9</DG1.3.1><DG1 .3.1 .~.~<DG1.3.1>D51.9</DG1.3.1><DG1.3.1> D51.9</DG1.3.1><DG1.3.1>E55.9</DG1.3.1><DG1.3.1 #Eos 0.18 10^3/uL 0.00-0.70 [place] ([facility]) .~.~<DG1.3.1>D51.9</DG1.3.1><DG1.3.1>D51.9</DG1.3.1><DG1.3.1>E55.9</DG1.3.1><DG1 .3.1 Is patient fasting? N~.~.~<DG1.3.1>D51.9</DG1.3.1><DG1.3.1>D51.9</DG1.3.1><DG1.3.1>E55.9</DG1.3. .~.~<DG1.3.1> D51.9</DG1.3.1><DG1.3.1>D51.9</DG1.3.1><DG1.3.1>E55.9</DG1.3.1><DG1.3.1 .~.~<DG1.3.1>D51.9</DG1.3.1><DG1.3.1>D51.9</DG1.3.1><DG1.3.1>E55.9</DG1.3.1><DG1 .3.1 .~.~<DG1.3.1>D51.9</DG1.3.1><DG1.3.1> D51.9</DG1.3.1><DG1.3.1>E55.9</DG1.3.1><DG1.3.1 #Baso 0.03 10^3/uL 0.00-0.20 [facility] ([facility]) .~.~<DG1.3.1>D51.9</DG1.3.1><DG1.3.1>D51.9</DG1.3.1><DG1.3.1>E55.9</DG1.3.1><DG1 .3.1 Is patient fasting? N~.~.~<DG1.3.1>D51.9</DG1.3.1><DG1.3.1>D51.9</DG1.3.1><DG1.3.1>E55.9</DG1.3. .~.~<DG1.3.1> D51.9</DG1.3.1><DG1.3.1>D51.9</DG1.3.1><DG1.3.1>E55.9</DG1.3.1><DG1.3.1 .~.~<DG1.3.1>D51.9</DG1.3.1><DG1.3.1>D51.9</DG1.3.1><DG1.3.1>E55.9</DG1.3.1><DG1 .3.1 .~.~<DG1.3.1>D51.9</DG1.3.1><DG1.3.1> D51.9</DG1.3.1><DG1.3.1>E55.9</DG1.3.1><DG1.3.1 #Ig 0.04 10^3/uL 0.00-0.10 [facility] ([facility]) .~.~<DG1.3.1>D51.9</DG1.3.1><DG1.3.1>D51.9</DG1.3.1><DG1.3.1>E55.9</DG1.3.1><DG1 .3.1 Is patient fasting? N~.~.~<DG1.3.1>D51.9</DG1.3.1><DG1.3.1>D51.9</DG1.3.1><DG1.3.1>E55.9</DG1.3. .~.~<DG1.3.1> D51.9</DG1.3.1><DG1.3.1>D51.9</DG1.3.1><DG1.3.1>E55.9</DG1.3.1><DG1.3.1 .~.~<DG1.3.1>D51.9</DG1.3.1><DG1.3.1>D51.9</DG1.3.1><DG1.3.1>E55.9</DG1.3.1><DG1 .3.1 .~.~<DG1.3.1>D51.9</DG1.3.1><DG1.3.1> D51.9</DG1.3.1><DG1.3.1>E55.9</DG1.3.1><DG1.3.1 #NRBC 0.00 10^3/uL 0.00-0.00 [place] ([facility]) .~.~<DG1.3.1>D51.9</DG1.3.1><DG1.3.1>D51.9</DG1.3.1><DG1.3.1>E55.9</DG1.3.1><DG1 .3.1 Is patient fasting? N~.~.~<DG1.3.1>D51.9</DG1.3.1><DG1.3.1>D51.9</DG1.3.1><DG1.3.1>E55.9</DG1.3. .~.~<DG1.3.1> D51.9</DG1.3.1><DG1.3.1>D51.9</DG1.3.1><DG1.3.1>E55.9</DG1.3.1><DG1.3.1 .~.~<DG1.3.1>D51.9</DG1.3.1><DG1.3.1>D51.9</DG1.3.1><DG1.3.1>E55.9</DG1.3.1><DG1 .3.1 .~.~<DG1.3.1>D51.9</DG1.3.1><DG1.3.1> D51.9</DG1.3.1><DG1.3.1>E55.9</DG1.3.1><DG1.3.1 Manual Diff Laboratory test result Angela ALBA ([facility]) .~.~<DG1.3.1>D51.9</DG1.3.1><DG1.3.1>D51.9</DG1.3.1><DG1.3.1>E55.9</DG1.3.1><DG1 .3.1 Is patient fasting? N~.~.~<DG1.3.1>D51.9</DG1.3.1><DG1.3.1>D51.9</DG1.3.1><DG1.3.1>E55.9</DG1.3. .~.~<DG1.3.1> D51.9</DG1.3.1><DG1.3.1>D51.9</DG1.3.1><DG1.3.1>E55.9</DG1.3.1><DG1.3.1 .~.~<DG1.3.1>D51.9</DG1.3.1><DG1.3.1>D51.9</DG1.3.1><DG1.3.1>E55.9</DG1.3.1><DG1 .3.1 .~.~<DG1.3.1>D51.9</DG1.3.1><DG1.3.1> D51.9</DG1.3.1><DG1.3.1>E55.9</DG1.3.1><DG1.3.1 RBC Morph Laboratory test result [facility] ([facility]) .~.~<DG1.3.1>D51.9</DG1.3.1><DG1.3.1>D51.9</DG1.3.1><DG1.3.1>E55.9</DG1.3.1><DG1 .3.1 Is patient fasting? N~.~.~<DG1.3.1>D51.9</DG1.3.1><DG1.3.1>D51.9</DG1.3.1><DG1.3.1>E55.9</DG1.3. .~.~<DG1.3.1> D51.9</DG1.3.1><DG1.3.1>D51.9</DG1.3.1><DG1.3.1>E55.9</DG1.3.1><DG1.3.1 .~.~<DG1.3.1>D51.9</DG1.3.1><DG1.3.1>D51.9</DG1.3.1><DG1.3.1>E55.9</DG1.3.1><DG1 .3.1 .~.~<DG1.3.1>D51.9</DG1.3.1><DG1.3.1> D51.9</DG1.3.1><DG1.3.1>E55.9</DG1.3.1><DG1.3.1 ID Date Data Source [id number] 05/16/2021 01:24:00 PM EDT [facility] ([facility]) Name Value Range Interpretation Code Description Data Yadi rce(s) Supporting Document(s) Calcidiol [Mass/volume] in Serum or Plasma 23 ng/mL [facility] ([facility]) <content>VITAMIN-D(25HYDROXY)</content>< br/><content>Deficiency: <=20 ng/ml</content>
<content>Insufficiency: 21-29 ng/ml</content>
<content>Preferred level: => 30 ng/ml</content>
<conten t></content> ID Date Data Source [id number] 05/16/2021 01:24:00 PM EDT [facility] ([facility]) Name Value Range Interpretation Code Description Data Yadi rce(s) Supporting Document(s) Uibc 215 ug/dL 112-347 [facility] ([facility]) .~.~<DG1.3.1>D51.9</DG1.3.1><DG1.3.1>D51.9</DG1.3.1><DG1.3.1>E55.9</DG1.3.1><DG1 .3.1 Is patient fasting? N~.~.~<DG1.3.1>D51.9</DG1.3.1><DG1.3.1>D51.9</DG1.3.1><DG1.3.1>E55.9</DG1.3. .~.~<DG1.3.1> D51.9</DG1.3.1><DG1.3.1>D51.9</DG1.3.1><DG1.3.1>E55.9</DG1.3.1><DG1.3.1 .~.~<DG1.3.1>D51.9</DG1.3.1><DG1.3.1>D51.9</DG1.3.1><DG1.3.1>E55.9</DG1.3.1><DG1 .3.1 .~.~<DG1.3.1>D51.9</DG1.3.1><DG1.3.1> D51.9</DG1.3.1><DG1.3.1>E55.9</DG1.3.1><DG1.3.1 Iron 45 ug/dL 42-135 [facility] ([facility]) .~.~<DG1.3.1>D51.9</DG1.3.1><DG1.3.1>D51.9</DG1.3.1><DG1.3.1>E55.9</DG1.3.1><DG1 .3.1 Is patient fasting? N~.~.~<DG1.3.1>D51.9</DG1.3.1><DG1.3.1>D51.9</DG1.3.1><DG1.3.1>E55.9</DG1.3. .~.~<DG1.3.1> D51.9</DG1.3.1><DG1.3.1>D51.9</DG1.3.1><DG1.3.1>E55.9</DG1.3.1><DG1.3.1 .~.~<DG1.3.1>D51.9</DG1.3.1><DG1.3.1>D51.9</DG1.3.1><DG1.3.1>E55.9</DG1.3.1><DG1 .3.1 .~.~<DG1.3.1>D51.9</DG1.3.1><DG1.3.1> D51.9</DG1.3.1><DG1.3.1>E55.9</DG1.3.1><DG1.3.1 Tibc 260 ug/dL 250-450 [facility] ([facility]) .~.~<DG1.3.1>D51.9</DG1.3.1><DG1.3.1>D51.9</DG1.3.1><DG1.3.1>E55.9</DG1.3.1><DG1 .3.1 Is patient fasting? N~.~.~<DG1.3.1>D51.9</DG1.3.1><DG1.3.1>D51.9</DG1.3.1><DG1.3.1>E55.9</DG1.3. .~.~<DG1.3.1> D51.9</DG1.3.1><DG1.3.1>D51.9</DG1.3.1><DG1.3.1>E55.9</DG1.3.1><DG1.3.1 .~.~<DG1.3.1>D51.9</DG1.3.1><DG1.3.1>D51.9</DG1.3.1><DG1.3.1>E55.9</DG1.3.1><DG1 .3.1 .~.~<DG1.3.1>D51.9</DG1.3.1><DG1.3.1> D51.9</DG1.3.1><DG1.3.1>E55.9</DG1.3.1><DG1.3.1 Iron Sat 17 % [facility] ([facility]) .~.~<DG1.3.1>D51.9</DG1.3.1><DG1.3.1>D51.9</DG1.3.1><DG1.3.1>E55.9</DG1.3.1><DG1 .3.1 Is patient fasting? N~.~.~<DG1.3.1>D51.9</DG1.3.1><DG1.3.1>D51.9</DG1.3.1><DG1.3.1>E55.9</DG1.3. .~.~<DG1.3.1> D51.9</DG1.3.1><DG1.3.1>D51.9</DG1.3.1><DG1.3.1>E55.9</DG1.3.1><DG1.3.1 .~.~<DG1.3.1>D51.9</DG1.3.1><DG1.3.1>D51.9</DG1.3.1><DG1.3.1>E55.9</DG1.3.1><DG1 .3.1 .~.~<DG1.3.1>D51.9</DG1.3.1><DG1.3.1> D51.9</DG1.3.1><DG1.3.1>E55.9</DG1.3.1><DG1.3.1 ID Date Data Source [id number] 05/16/2021 01:24:00 PM EDT [facility] ([facility]) Name Value Range Interpretation Code Description Data Yadi rce(s) Supporting Document(s) Ferritin [Mass/volume] in Serum or Plasma 47.6 ng/mL 3.0-105 [facility] ([facility]) .~.~<DG1.3.1>D51.9</DG1.3.1><DG1.3.1>D51.9</DG1.3.1><DG1.3.1>E55.9</DG1.3.1><DG1 .3.1 Is patient fasting? N~.~.~<DG1.3.1>D51.9</DG1.3.1><DG1.3.1>D51.9</DG1.3.1><DG1.3.1>E55.9</DG1.3. .~.~<DG1.3.1> D51.9</DG1.3.1><DG1.3.1>D51.9</DG1.3.1><DG1.3.1>E55.9</DG1.3.1><DG1.3.1 .~.~<DG1.3.1>D51.9</DG1.3.1><DG1.3.1>D51.9</DG1.3.1><DG1.3.1>E55.9</DG1.3.1><DG1 .3.1 .~.~<DG1.3.1>D51.9</DG1.3.1><DG1.3.1> D51.9</DG1.3.1><DG1.3.1>E55.9</DG1.3.1><DG1.3.1 ID Date Data Source [id number] 05/16/2021 01:24:00 PM EDT [facility] ([facility]) Name Value Range Interpretation Code Description Data Yadi rce(s) Supporting Document(s) Comprehensive Metabo Laboratory test result [facility] ([facility]) .~.~<DG1.3.1>D51.9</DG1.3.1><DG1.3.1>D51.9</DG1.3.1><DG1.3.1>E55.9</DG1.3.1><DG1 .3.1 Is patient fasting? N~.~.~<DG1.3.1>D51.9</DG1.3.1><DG1.3.1>D51.9</DG1.3.1><DG1.3.1>E55.9</DG1.3. .~.~<DG1.3.1> D51.9</DG1.3.1><DG1.3.1>D51.9</DG1.3.1><DG1.3.1>E55.9</DG1.3.1><DG1.3.1 .~.~<DG1.3.1>D51.9</DG1.3.1><DG1.3.1>D51.9</DG1.3.1><DG1.3.1>E55.9</DG1.3.1><DG1 .3.1 .~.~<DG1.3.1>D51.9</DG1.3.1><DG1.3.1> D51.9</DG1.3.1><DG1.3.1>E55.9</DG1.3.1><DG1.3.1 Sodium 138 meq/L 134-153 [facility] ([facility]) .~.~<DG1.3.1>D51.9</DG1.3.1><DG1.3.1>D51.9</DG1.3.1><DG1.3.1>E55.9</DG1.3.1><DG1 .3.1 Is patient fasting? N~.~.~<DG1.3.1>D51.9</DG1.3.1><DG1.3.1>D51.9</DG1.3.1><DG1.3.1>E55.9</DG1.3. .~.~<DG1.3.1> D51.9</DG1.3.1><DG1.3.1>D51.9</DG1.3.1><DG1.3.1>E55.9</DG1.3.1><DG1.3.1 .~.~<DG1.3.1>D51.9</DG1.3.1><DG1.3.1>D51.9</DG1.3.1><DG1.3.1>E55.9</DG1.3.1><DG1 .3.1 .~.~<DG1.3.1>D51.9</DG1.3.1><DG1.3.1> D51.9</DG1.3.1><DG1.3.1>E55.9</DG1.3.1><DG1.3.1 Potassium 4.0 meq/L 3.6-5.0 [facility] ([facility]) .~.~<DG1.3.1>D51.9</DG1.3.1><DG1.3.1>D51.9</DG1.3.1><DG1.3.1>E55.9</DG1.3.1><DG1 .3.1 Is patient fasting? N~.~.~<DG1.3.1>D51.9</DG1.3.1><DG1.3.1>D51.9</DG1.3.1><DG1.3.1>E55.9</DG1.3. .~.~<DG1.3.1> D51.9</DG1.3.1><DG1.3.1>D51.9</DG1.3.1><DG1.3.1>E55.9</DG1.3.1><DG1.3.1 .~.~<DG1.3.1>D51.9</DG1.3.1><DG1.3.1>D51.9</DG1.3.1><DG1.3.1>E55.9</DG1.3.1><DG1 .3.1 .~.~<DG1.3.1>D51.9</DG1.3.1><DG1.3.1> D51.9</DG1.3.1><DG1.3.1>E55.9</DG1.3.1><DG1.3.1 Chloride 104 meq/L 98-107 [facility] ([facility]) .~.~<DG1.3.1>D51.9</DG1.3.1><DG1.3.1>D51.9</DG1.3.1><DG1.3.1>E55.9</DG1.3.1><DG1 .3.1 Is patient fasting? N~.~.~<DG1.3.1>D51.9</DG1.3.1><DG1.3.1>D51.9</DG1.3.1><DG1.3.1>E55.9</DG1.3. .~.~<DG1.3.1> D51.9</DG1.3.1><DG1.3.1>D51.9</DG1.3.1><DG1.3.1>E55.9</DG1.3.1><DG1.3.1 .~.~<DG1.3.1>D51.9</DG1.3.1><DG1.3.1>D51.9</DG1.3.1><DG1.3.1>E55.9</DG1.3.1><DG1 .3.1 .~.~<DG1.3.1>D51.9</DG1.3.1><DG1.3.1> D51.9</DG1.3.1><DG1.3.1>E55.9</DG1.3.1><DG1.3.1 Glucose 100 mg/dL 70-99 Above high normal [facility] ([facility]) .~.~<DG1.3.1>D51.9</DG1.3.1><DG1.3.1>D51.9</DG1.3.1><DG1.3.1>E55.9</DG1.3.1><DG1 .3.1 Is patient fasting? N~.~.~<DG1.3.1>D51.9</DG1.3.1><DG1.3.1>D51.9</DG1.3.1><DG1.3.1>E55.9</DG1.3. .~.~<DG1.3.1> D51.9</DG1.3.1><DG1.3.1>D51.9</DG1.3.1><DG1.3.1>E55.9</DG1.3.1><DG1.3.1 .~.~<DG1.3.1>D51.9</DG1.3.1><DG1.3.1>D51.9</DG1.3.1><DG1.3.1>E55.9</DG1.3.1><DG1 .3.1 .~.~<DG1.3.1>D51.9</DG1.3.1><DG1.3.1> D51.9</DG1.3.1><DG1.3.1>E55.9</DG1.3.1><DG1.3.1 Co2 23 meq/L 22-30 [facility] ([facility]) .~.~<DG1.3.1>D51.9</DG1.3.1><DG1.3.1>D51.9</DG1.3.1><DG1.3.1>E55.9</DG1.3.1><DG1 .3.1 Is patient fasting? N~.~.~<DG1.3.1>D51.9</DG1.3.1><DG1.3.1>D51.9</DG1.3.1><DG1.3.1>E55.9</DG1.3. .~.~<DG1.3.1> D51.9</DG1.3.1><DG1.3.1>D51.9</DG1.3.1><DG1.3.1>E55.9</DG1.3.1><DG1.3.1 .~.~<DG1.3.1>D51.9</DG1.3.1><DG1.3.1>D51.9</DG1.3.1><DG1.3.1>E55.9</DG1.3.1><DG1 .3.1 .~.~<DG1.3.1>D51.9</DG1.3.1><DG1.3.1> D51.9</DG1.3.1><DG1.3.1>E55.9</DG1.3.1><DG1.3.1 BUN 12 mg/dL 7-21 [facility] ([facility]) .~.~<DG1.3.1>D51.9</DG1.3.1><DG1.3.1>D51.9</DG1.3.1><DG1.3.1>E55.9</DG1.3.1><DG1 .3.1 Is patient fasting? N~.~.~<DG1.3.1>D51.9</DG1.3.1><DG1.3.1>D51.9</DG1.3.1><DG1.3.1>E55.9</DG1.3. .~.~<DG1.3.1> D51.9</DG1.3.1><DG1.3.1>D51.9</DG1.3.1><DG1.3.1>E55.9</DG1.3.1><DG1.3.1 .~.~<DG1.3.1>D51.9</DG1.3.1><DG1.3.1>D51.9</DG1.3.1><DG1.3.1>E55.9</DG1.3.1><DG1 .3.1 .~.~<DG1.3.1>D51.9</DG1.3.1><DG1.3.1> D51.9</DG1.3.1><DG1.3.1>E55.9</DG1.3.1><DG1.3.1 Creatinine 0.6 mg/dL 0.7-1.5 Below low normal [facility] ( [facility]) .~.~<DG1.3.1>D51.9</DG1.3.1><DG1.3.1>D51.9</DG1.3.1><DG1.3.1>E55.9</DG1.3.1><DG1 .3.1 Is patient fasting? N~.~.~<DG1.3.1>D51.9</DG1.3.1><DG1.3.1>D51.9</DG1.3.1><DG1.3.1>E55.9</DG1.3. .~.~<DG1.3.1> D51.9</DG1.3.1><DG1.3.1>D51.9</DG1.3.1><DG1.3.1>E55.9</DG1.3.1><DG1.3.1 .~.~<DG1.3.1>D51.9</DG1.3.1><DG1.3.1>D51.9</DG1.3.1><DG1.3.1>E55.9</DG1.3.1><DG1 .3.1 .~.~<DG1.3.1>D51.9</DG1.3.1><DG1.3.1> D51.9</DG1.3.1><DG1.3.1>E55.9</DG1.3.1><DG1.3.1 Total Protein 7.1 g/dL 6.3-8.2 [facility]) .~.~<DG1.3.1>D51.9</DG1.3.1><DG1.3.1>D51.9</DG1.3.1><DG1.3.1>E55.9</DG1.3.1><DG1 .3.1 Is patient fasting? N~.~.~<DG1.3.1>D51.9</DG1.3.1><DG1.3.1>D51.9</DG1.3.1><DG1.3.1>E55.9</DG1.3. .~.~<DG1.3.1> D51.9</DG1.3.1><DG1.3.1>D51.9</DG1.3.1><DG1.3.1>E55.9</DG1.3.1><DG1.3.1 .~.~<DG1.3.1>D51.9</DG1.3.1><DG1.3.1>D51.9</DG1.3.1><DG1.3.1>E55.9</DG1.3.1><DG1 .3.1 .~.~<DG1.3.1>D51.9</DG1.3.1><DG1.3.1> D51.9</DG1.3.1><DG1.3.1>E55.9</DG1.3.1><DG1.3.1 BUN/[place] 20 04-18 [facility] ([facility]) .~.~<DG1.3.1>D51.9</DG1.3.1><DG1.3.1>D51.9</DG1.3.1><DG1.3.1>E55.9</DG1.3.1><DG1 .3.1 Is patient fasting? N~.~.~<DG1.3.1>D51.9</DG1.3.1><DG1.3.1>D51.9</DG1.3.1><DG1.3.1>E55.9</DG1.3. .~.~<DG1.3.1> D51.9</DG1.3.1><DG1.3.1>D51.9</DG1.3.1><DG1.3.1>E55.9</DG1.3.1><DG1.3.1 .~.~<DG1.3.1>D51.9</DG1.3.1><DG1.3.1>D51.9</DG1.3.1><DG1.3.1>E55.9</DG1.3.1><DG1 .3.1 .~.~<DG1.3.1>D51.9</DG1.3.1><DG1.3.1> D51.9</DG1.3.1><DG1.3.1>E55.9</DG1.3.1><DG1.3.1 Albumin 4.8 g/dL 3.9-5.0 [facility] ([facility]) .~.~<DG1.3.1>D51.9</DG1.3.1><DG1.3.1>D51.9</DG1.3.1><DG1.3.1>E55.9</DG1.3.1><DG1 .3.1 Is patient fasting? N~.~.~<DG1.3.1>D51.9</DG1.3.1><DG1.3.1>D51.9</DG1.3.1><DG1.3.1>E55.9</DG1.3. .~.~<DG1.3.1> D51.9</DG1.3.1><DG1.3.1>D51.9</DG1.3.1><DG1.3.1>E55.9</DG1.3.1><DG1.3.1 .~.~<DG1.3.1>D51.9</DG1.3.1><DG1.3.1>D51.9</DG1.3.1><DG1.3.1>E55.9</DG1.3.1><DG1 .3.1 .~.~<DG1.3.1>D51.9</DG1.3.1><DG1.3.1> D51.9</DG1.3.1><DG1.3.1>E55.9</DG1.3.1><DG1.3.1 Globulin 2.3 GM/DL 2.4-3.2 Below low normal [facility] ( [facility]) .~.~<DG1.3.1>D51.9</DG1.3.1><DG1.3.1>D51.9</DG1.3.1><DG1.3.1>E55.9</DG1.3.1><DG1 .3.1 Is patient fasting? N~.~.~<DG1.3.1>D51.9</DG1.3.1><DG1.3.1>D51.9</DG1.3.1><DG1.3.1>E55.9</DG1.3. .~.~<DG1.3.1> D51.9</DG1.3.1><DG1.3.1>D51.9</DG1.3.1><DG1.3.1>E55.9</DG1.3.1><DG1.3.1 .~.~<DG1.3.1>D51.9</DG1.3.1><DG1.3.1>D51.9</DG1.3.1><DG1.3.1>E55.9</DG1.3.1><DG1 .3.1 .~.~<DG1.3.1>D51.9</DG1.3.1><DG1.3.1> D51.9</DG1.3.1><DG1.3.1>E55.9</DG1.3.1><DG1.3.1 A/G Ratio 2.1 0.8-2.0 Above high normal [facility] ([facility]) .~.~<DG1.3.1>D51.9</DG1.3.1><DG1.3.1>D51.9</DG1.3.1><DG1.3.1>E55.9</DG1.3.1><DG1 .3.1 Is patient fasting? N~.~.~<DG1.3.1>D51.9</DG1.3.1><DG1.3.1>D51.9</DG1.3.1><DG1.3.1>E55.9</DG1.3. .~.~<DG1.3.1> D51.9</DG1.3.1><DG1.3.1>D51.9</DG1.3.1><DG1.3.1>E55.9</DG1.3.1><DG1.3.1 .~.~<DG1.3.1>D51.9</DG1.3.1><DG1.3.1>D51.9</DG1.3.1><DG1.3.1>E55.9</DG1.3.1><DG1 .3.1 .~.~<DG1.3.1>D51.9</DG1.3.1><DG1.3.1> D51.9</DG1.3.1><DG1.3.1>E55.9</DG1.3.1><DG1.3.1 Calcium 9.6 mg/dL 8.4-10.2 [facility] ([facility]) .~.~<DG1.3.1>D51.9</DG1.3.1><DG1.3.1>D51.9</DG1.3.1><DG1.3.1>E55.9</DG1.3.1><DG1 .3.1 Is patient fasting? N~.~.~<DG1.3.1>D51.9</DG1.3.1><DG1.3.1>D51.9</DG1.3.1><DG1.3.1>E55.9</DG1.3. .~.~<DG1.3.1> D51.9</DG1.3.1><DG1.3.1>D51.9</DG1.3.1><DG1.3.1>E55.9</DG1.3.1><DG1.3.1 .~.~<DG1.3.1>D51.9</DG1.3.1><DG1.3.1>D51.9</DG1.3.1><DG1.3.1>E55.9</DG1.3.1><DG1 .3.1 .~.~<DG1.3.1>D51.9</DG1.3.1><DG1.3.1> D51.9</DG1.3.1><DG1.3.1>E55.9</DG1.3.1><DG1.3.1 Total Bili Laboratory test result 0.2-1.3 [facility] ([facility]) .~.~<DG1.3.1>D51.9</DG1.3.1><DG1.3.1>D51.9</DG1.3.1><DG1.3.1>E55.9</DG1.3.1><DG1 .3.1 Is patient fasting? N~.~.~<DG1.3.1>D51.9</DG1.3.1><DG1.3.1>D51.9</DG1.3.1><DG1.3.1>E55.9</DG1.3. .~.~<DG1.3.1> D51.9</DG1.3.1><DG1.3.1>D51.9</DG1.3.1><DG1.3.1>E55.9</DG1.3.1><DG1.3.1 .~.~<DG1.3.1>D51.9</DG1.3.1><DG1.3.1>D51.9</DG1.3.1><DG1.3.1>E55.9</DG1.3.1><DG1 .3.1 .~.~<DG1.3.1>D51.9</DG1.3.1><DG1.3.1> D51.9</DG1.3.1><DG1.3.1>E55.9</DG1.3.1><DG1.3.1 Alkaline Phos 75 U/L 38-126 [facility] ([facility]) .~.~<DG1.3.1>D51.9</DG1.3.1><DG1.3.1>D51.9</DG1.3.1><DG1.3.1>E55.9</DG1.3.1><DG1 .3.1 Is patient fasting? N~.~.~<DG1.3.1>D51.9</DG1.3.1><DG1.3.1>D51.9</DG1.3.1><DG1.3.1>E55.9</DG1.3. .~.~<DG1.3.1> D51.9</DG1.3.1><DG1.3.1>D51.9</DG1.3.1><DG1.3.1>E55.9</DG1.3.1><DG1.3.1 .~.~<DG1.3.1>D51.9</DG1.3.1><DG1.3.1>D51.9</DG1.3.1><DG1.3.1>E55.9</DG1.3.1><DG1 .3.1 .~.~<DG1.3.1>D51.9</DG1.3.1><DG1.3.1> D51.9</DG1.3.1><DG1.3.1>E55.9</DG1.3.1><DG1.3.1 Sgot/Ast 13 U/L 5-40 [facility] ([facility]) .~.~<DG1.3.1>D51.9</DG1.3.1><DG1.3.1>D51.9</DG1.3.1><DG1.3.1>E55.9</DG1.3.1><DG1 .3.1 Is patient fasting? N~.~.~<DG1.3.1>D51.9</DG1.3.1><DG1.3.1>D51.9</DG1.3.1><DG1.3.1>E55.9</DG1.3. .~.~<DG1.3.1> D51.9</DG1.3.1><DG1.3.1>D51.9</DG1.3.1><DG1.3.1>E55.9</DG1.3.1><DG1.3.1 .~.~<DG1.3.1>D51.9</DG1.3.1><DG1.3.1>D51.9</DG1.3.1><DG1.3.1>E55.9</DG1.3.1><DG1 .3.1 .~.~<DG1.3.1>D51.9</DG1.3.1><DG1.3.1> D51.9</DG1.3.1><DG1.3.1>E55.9</DG1.3.1><DG1.3.1 Anion Gap 11.0 mmol/L 8.0-16.0 [facility]) .~.~<DG1.3.1>D51.9</DG1.3.1><DG1.3.1>D51.9</DG1.3.1><DG1.3.1>E55.9</DG1.3.1><DG1 .3.1 Is patient fasting? N~.~.~<DG1.3.1>D51.9</DG1.3.1><DG1.3.1>D51.9</DG1.3.1><DG1.3.1>E55.9</DG1.3. .~.~<DG1.3.1> D51.9</DG1.3.1><DG1.3.1>D51.9</DG1.3.1><DG1.3.1>E55.9</DG1.3.1><DG1.3.1 .~.~<DG1.3.1>D51.9</DG1.3.1><DG1.3.1>D51.9</DG1.3.1><DG1.3.1>E55.9</DG1.3.1><DG1 .3.1 .~.~<DG1.3.1>D51.9</DG1.3.1><DG1.3.1> D51.9</DG1.3.1><DG1.3.1>E55.9</DG1.3.1><DG1.3.1 SGPT/Alt 11 U/L 7-56 [facility] ([facility]) .~.~<DG1.3.1>D51.9</DG1.3.1><DG1.3.1>D51.9</DG1.3.1><DG1.3.1>E55.9</DG1.3.1><DG1 .3.1 Is patient fasting? N~.~.~<DG1.3.1>D51.9</DG1.3.1><DG1.3.1>D51.9</DG1.3.1><DG1.3.1>E55.9</DG1.3. .~.~<DG1.3.1> D51.9</DG1.3.1><DG1.3.1>D51.9</DG1.3.1><DG1.3.1>E55.9</DG1.3.1><DG1.3.1 .~.~<DG1.3.1>D51.9</DG1.3.1><DG1.3.1>D51.9</DG1.3.1><DG1.3.1>E55.9</DG1.3.1><DG1 .3.1 .~.~<DG1.3.1>D51.9</DG1.3.1><DG1.3.1> D51.9</DG1.3.1><DG1.3.1>E55.9</DG1.3.1><DG1.3.1 Age 35 yrs [facility] ([facility]) .~.~<DG1.3.1>D51.9</DG1.3.1><DG1.3.1>D51.9</DG1.3.1><DG1.3.1>E55.9</DG1.3.1><DG1 .3.1 Is patient fasting? N~.~.~<DG1.3.1>D51.9</DG1.3.1><DG1.3.1>D51.9</DG1.3.1><DG1.3.1>E55.9</DG1.3. .~.~<DG1.3.1> D51.9</DG1.3.1><DG1.3.1>D51.9</DG1.3.1><DG1.3.1>E55.9</DG1.3.1><DG1.3.1 .~.~<DG1.3.1>D51.9</DG1.3.1><DG1.3.1>D51.9</DG1.3.1><DG1.3.1>E55.9</DG1.3.1><DG1 .3.1 .~.~<DG1.3.1>D51.9</DG1.3.1><DG1.3.1> D51.9</DG1.3.1><DG1.3.1>E55.9</DG1.3.1><DG1.3.1 Non-Aa GFR Laboratory test result [facility] ([facility]) .~.~<DG1.3.1>D51.9</DG1.3.1><DG1.3.1>D51.9</DG1.3.1><DG1.3.1>E55.9</DG1.3.1><DG1 .3.1 Is patient fasting? N~.~.~<DG1.3.1>D51.9</DG1.3.1><DG1.3.1>D51.9</DG1.3.1><DG1.3.1>E55.9</DG1.3. .~.~<DG1.3.1> D51.9</DG1.3.1><DG1.3.1>D51.9</DG1.3.1><DG1.3.1>E55.9</DG1.3.1><DG1.3.1 .~.~<DG1.3.1>D51.9</DG1.3.1><DG1.3.1>D51.9</DG1.3.1><DG1.3.1>E55.9</DG1.3.1><DG1 .3.1 .~.~<DG1.3.1>D51.9</DG1.3.1><DG1.3.1> D51.9</DG1.3.1><DG1.3.1>E55.9</DG1.3.1><DG1.3.1 Afr Amer GFR Laboratory test result [facility] ([facility]) .~.~<DG1.3.1>D51.9</DG1.3.1><DG1.3.1>D51.9</DG1.3.1><DG1.3.1>E55.9</DG1.3.1><DG1 .3.1 Is patient fasting? N~.~.~<DG1.3.1>D51.9</DG1.3.1><DG1.3.1>D51.9</DG1.3.1><DG1.3.1>E55.9</DG1.3. .~.~<DG1.3.1> D51.9</DG1.3.1><DG1.3.1>D51.9</DG1.3.1><DG1.3.1>E55.9</DG1.3.1><DG1.3.1 .~.~<DG1.3.1>D51.9</DG1.3.1><DG1.3.1>D51.9</DG1.3.1><DG1.3.1>E55.9</DG1.3.1><DG1 .3.1 .~.~<DG1.3.1>D51.9</DG1.3.1><DG1.3.1> D51.9</DG1.3.1><DG1.3.1>E55.9</DG1.3.1><DG1.3.1 ID Date Data Source [id number] 05/16/2021 02:27:00 PM EDT [facility] Name Value Range Interpretation Code Description Data Yadi rce(s) Supporting Document(s) Ferritin [Mass/volume] in Serum or Plasma 47.6 ng/mL 3.0 - 105 [facility] ID Date Data Source [id number] 05/16/2021 02:27:00 PM EDT [facility] Name Value Range Interpretation Code Description Data Yadi rce(s) Supporting Document(s) Calcidiol [Moles/volume] in Serum or Plasma 23 NG/ML [facility] VITAMIN-D(2 5HYDROXY) Deficiency: <=20 ng/ml Insufficiency: 21-29 ng/ml Preferred level: => 30 ng/ml ID Date Data Source [id number] 05/16/2021 02:27:00 PM EDT [facility] Value Range Interpretation Code Description Data Yadi rce(s) Supporting Document(s) Cobalamin (Vitamin B12) [Mass/volume] in Serum or Plasma 353 PG/ML 232 - 1245 [facility] ID Date Data Source [id number] 05/16/2021 02:08:00 PM EDT [facility] Name Value Range Interpretation Code Description Data [facility](s) Supporting Document(s) COMPREHENSIVE METABOLIC PANEL [facility] COMPREHENSIVE METABOLIC PANEL Sodium [Moles/volume] in Serum or Plasma 138 mEq/L 134 - 153 [facility] Potassium [Moles/volume] in Serum or Plasma 4.0 mEq/L 3.6 - 5.0 [facility] Chloride [Moles/volume] in Serum or Plasma 104 mEq/L 98 - 107 [facility] Carbon dioxide, total [Moles/volume] in Serum or Plasma 23 MEQ/L 22 - 30 [facility] Glucose [Mass/volume] in Serum or Plasma 100 MG/DL 70 - 99 H [facility] BUN 12 MG/DL 7 - [facility] Creatinine [Mass/volume] in Serum or Plasma 0.6 MG/DL 0.7 - 1.5 L [facility] BUN/CREAT 20 8 - 27 [facility] al Protein [Mass/volume] in Serum or Plasma 7.1 G/DL 6.3 - 8.2 [facility] Albumin [Mass/volume] in Serum or Plasma 4.8 G/DL 3.9 - 5.0 [facility] Globulin [Mass/volume] in Serum by calculation 2.3 GM/DL 2.4 - 3.2 L [facility] A/G RATIO 2.1 0.8 - 2.0 H [facility] al Calcium [Mass/volume] in Serum or Plasma 9.6 MG/DL 8.4 - 10.2 [facility] Bilirubin.total [Mass/volume] in Serum or Plasma <0.7 MG/DL 0.2 - 1.3 [facility] Alkaline phosphatase [Enzymatic activity/volume] in Serum or Plasma 75 U/L 38 - 126 [facility] Aspartate aminotransferase [Enzymatic activity/volume] in Serum or Plasma 13 U/L 5 - 40 [facility] Alanine aminotransferase [Enzymatic activity/volume] in Seru m or Plasma 11 U/L 7 - 56 [facility] Anion gap 3 in Serum or Plasma 11.0 mmol/L 8.0 - 16.0 [facility] AGE 35 yrs [facility] NON-AA GFR >60 mL/min [facility]osp ital AFR AMER GFR >60 mL/min [facility] Ho spital Male GFR In terprentation 20-49 [...] >32 mL/min Normal ID Date Data Source [id number] 05/16/2021 02:04:00 PM EDT [facility] Name Value Range Interpretation Code Description Data Yadi rce(s) Supporting Document(s) Iron [Mass/volume] in Serum or Plasma 45 UG/DL 42 - 135 [facility] Iron binding capacity.unsaturated [Mass/volume] in Serum or Plasma 215 UG/DL 112 - 347 [facility] Iron binding capacity [Mass/volume] in Serum or Plasma 260 ug/dL 250 - 450 [facility] Iron saturation [Mass Fraction] in Serum or Plasma 17 % [facility] ID Date Data Source [id number] 05/16/2021 01:43:00 PM EDT [facility] Name Value Range Interpretation Code Description Data Yadi rce(s) Supporting Document(s) CBC W/AUTOMATED DIFF [facility] COMPLETE BLOOD COUNT Leukocytes [#/volume] in Blood by Automated count 12.6 10^3/uL 4.2 - 11.0 H [facility] Erythrocytes [#/volume] in Blood by Automated count 4.44 10^6/uL 4. 20 - 5.40 [facility] Hemoglobin [Mass/volume] in Blood 14.0 g/dL 12.0 - 16.0 [facility] Hematocrit [Volume Fraction] of Blood by Automated count 41.6 % 3 7.0 - 47.0 [facility] Erythrocyte mean corpuscular volume [Entitic volume] by Auto mated count 93.7 fL 81.0 - 101 [facility] Erythrocyte mean corpuscular hemoglobin [Entitic mass] by Automated count 31.5 pg 27.0 - 34.0 [facility] Erythrocyte mean corpuscular hemoglobin concentration [Mass/volume] by Automated count 33.7 g/dL 31.0 - 36.0 [facility] Erythrocyte distribution width [Ratio] by Automated count 13.9 % 11.5 - 14.5 [facility] Platelets [#/volume] in Blood by Automated count 210 10^3/uL 150 - 45 0 [facility] Platelet mean volume [Entitic volume] in Blood by Automated count 9.1 fL 7.4 - 10.4 [facility] Neutrophils/100 leukocytes in Blood by Automated count 66.7 % 37. 0 - 80.0 [facility] Lymphocytes/100 leukocytes in Blood by Manual count 24.8 % 25.0 - 40.0 L [facility] Monocytes/100 leukocytes in Blood by Automated count 6.6 % 3.0 - 8.0 [facility] Eosinophils/100 leukocytes in Blood by Automated count 1.4 % 0.0 - 7.0 [facility] Basophils/100 leukocytes in Blood by Automated count 0.2 % 0.0 - 2.5 [facility] %IG 0.3 % 0.0 - 0.0 H [facility] al %NRBC 0.0 % 0.0 - 0.0 [facility] al Neutrophils [#/volume] in Blood by Automated count 8.36 10^3/uL 2.00 - 6.90 H [facility] Lymphocytes [#/volume] in Blood by Automated count 3.12 10^3/uL 0.60 - 3.40 [facility] Monocytes [#/volume] in Blood by Automated count 0.83 10^3/uL 0.00 - 0.90 [facility] Eosinophils [#/volume] in Blood by Automated count 0.18 10^3/uL 0.00 - 0.70 [facility] Basophils [#/volume] in Blood by Automated count 0.03 10^3/uL 0.00 - 0.20 [facility] #IG 0.04 10^3/uL 0.00 - 0.10 [facility] #NRBC 0.00 10^3/uL 0.00 - 0.00 [facility] ospital MANUAL DIFF NOT INDICATED [facility] RBC MORPH NOT INDICATED [facility] ID Date Data Source [id number] 05/16/2021 01:22:00 PM EDT [facility] ([facility]) Name Value Range Interpretation Code Description Data Yadi rce(s) Supporting Document(s) Laboratory test finding (navigational concept) Laboratory test resu lt 0.0-0.9 [facility] ([facility]) Treponema pallidum Ab [Presence] in Serum Laboratory test result [facility] ([facility]) Hepatitis B virus surface Ag [Presence] in Serum or Pl asma by Immunoassay Laboratory test result [facility] ([facility]) ID Date Data Source [id number] 05/16/2021 01:22:00 PM EDT [facility] ([facility]) Name Value Range Interpretation Code Description Data Yadi rce(s) Supporting Document(s) HIV Screen 4thGeneration wRfx Laboratory test result [facility] ([facility]) ID Date Data Source [id number] 05/16/2021 01:22:00 PM EDT [facility] ([facility]) Name Value Range Interpretation Code Description Data Yadi rce(s) Supporting Document(s) HSV 1 IgG, Type Spec Laboratory test result 0.00-0.90 [facility] ([facility]) <content>Negative <0.91</content>
<content>Equivocal 0.91 - 1.09</content>
<content>Positive >1.09</content>
<content>Note: Negative indicates no antibodies detected to</content>
<content>HSV-1. Equivocal may suggest early infection. If</content>
<content>clinically appropriate, retest at later date. Positive</content>
<content>indicates antibodies detected to HSV-1.</content>
<content></content> HSV 2 IgG, Type Spec 2.06 index 0.00-0.90 Above high normal [facility] ([facility]) <content>Negative <0.91</content>
<content>Equivocal 0.91 - 1.09</content>
<content>Positive >1.09</content>
<content>Note: Negative indicates no antibodies detected to</content>
<content>HSV-2. Equivocal may suggest early infection. If</content>
<content>clinically appropriate, retest at later date. Positive</content>
<content>indicates antibodies detected to HSV-2.</content>
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 Positive/Equivocal Negative Unable to confirm the presence of IgG antibodies to HSV-2. Recommend retesting in 2-4 weeks. ID Date Data Source [id number] 05/16/2021 01:22:00 PM EDT [facility]) Name Value Range Interpretation Code Description Data Yadi rce(s) Supporting Document(s) HSV, IgM I/II Combination Laboratory test result 0.00-0.90 [facility] ([facility]) <content>Negative <0.91</content>
<content>Equivocal 0.91 - 1.09</content>
<content>Positive >1.09</content>
<content></content> ID Date Data Source [id number] 05/16/2021 01:22:00 PM EDT [facility] ([facility]) Name Value Range Interpretation Code Description Data Yadi rce(s) Supporting Document(s) Fibrosis Score 0.02 NA 0.00-0.21 [facility] ([facility]) Fibrosis Stage Laboratory test result [facility] ([facility]) F0 - No fibrosis Necroinflammat ActivityScore 0.03 NA 0.00-0.17 [facility] ([facility]) Necroinflammat ActivityGrade Laboratory test result [facility] ([facility]) Haptoglobin 228 mg/dL 33-278 [facility] ([facility]) Alpha 2-Macroglobulins,Qn 157 mg/dL 110-276 [facility] ([facility]) Apolipoprotein A-1 105 mg/dL 116-209 Below low normal [facility] ([facility]) Bilirubin, Total 0.1 mg/dL 0.0-1.2 [facility] ([facility]) Laboratory test finding (navigational concept) Laboratory test result [facility] ([facility]) Quantitative results of 6 biochemical te sts are analyzed using a computational algorithm to provide a quantitative surrogate marker (0.0-1.0) for liver fibrosis (METAVIR F0-F4) and for necroinflammatory activity (METAVIR A0-A3). GGT 12 IU/L 0-60 [facility] ([facility]) Alt (SGPT) P5P 13 IU/L 0-40 [facility] ([facility]) Laboratory test finding (navigational concept) Laboratory test result [facility] ([facility]) <content><=0.21 = Stage F0 - No fibrosis [...] finding (navigational concept) Laboratory test result [facility] ([facility]) <content><0.17 = Grade A0 - No Activity< /content>
<content>0.17 - 0.29 = Grade A0 - A1</content>
<content>0.29 - 0.36 = Grade A1 - Minimal activity</content>
<content>0.36 - 0.52 = Grade A1 - A2</content>
<content>0.52 - 0.60 = Grade A2 - Moderate activity</content>
<content>0.60 - 0.62 = Grade A2 - A3</content>
<content>>0.62 = Grade A3 - Severe activity</content>
<content></content> Comment: Laboratory test result [facility] ([facility]) Laboratory test finding (navigational concept) Laboratory test result [facility] ([facility]) <content>The negative predictive value o f a [...] the liver.</content>
<content></content> ID Date Data Source [id number] 05/20/2021 07:41:00 AM EDT [facility] Name Value Range Interpretation Code Description Data Yadi rce(s) Supporting Document(s) Fibrosis score 0.02 NA 0.00-0.21 [facility] ospital Fibrosis stage COMMENT [facility]ital F0 - No fibrosis Necroinflammatory activity score 0.03 NA 0.00-0.17 [facility] Necroinflammatory activity grade A0-No activity [facility] [id number] [Mass/volume] in Serum or Plasma 157 mg/dL 110 -276 [facility] Haptoglobin [Mass/volume] in Serum or Plasma 228 mg/dL 33-278 [facility] Apolipoprotein A-I [Mass/volume] in Serum or Plasma 105 mg/dL 116-20 9 L [facility] Bilirubin.total [Mass/volume] in Serum or Plasma 0.1 mg/dL 0.0-1.2 [facility] Gamma glutamyl transferase [Enzymatic activity/volume] in Serum or Plasma 12 IU/L 0-60 [facility] Alanine aminotransferase [Enzymatic acti vity/volume] in Serum or Plasma by With P-5'-P 13 IU/L 0-40 [facility] Interpretations: COMMENT [facility] Quantitative results of 6 biochemical te sts are analyzed usinga computational algorithm to provide a quantitative surrogatemarker (0.0-1.0) for liver fibrosis (METAVIR F0-F4) and fornecroinflammatory activity (METAVIR A0-A3). Fibrosis Scoring: COMMENT [facility] <=0.21 = Stage F0 - No fibrosis0.21 [...] Stage F4 - Cirrhosis Necroinflamm ActivityScoring: COMMENT [facility] <0.17 = Grade A0 - No Activity0.17 - 0.29 = Grade A0 - A10.29 - 0.36 = Grade A1 - Minimal activity0.36 - 0.52 = Grade A1 - A20.52 - 0.60 = Grade A2 - Moderate activity0.60 - 0.62 = Grade A2 - A3 >0.62 = Grade A3 - Severe activity Service comment COMMENT [facility] The negative predictive value of a Fibro [...] comment [Text] in Report Narrative WILL FOLLOW [facility] ID Date Data Source [id number] 05/18/2021 04:18:00 PM EDT [facility] Name Value Range Interpretation Code Description Data Yadi rce(s) Supporting Document(s) Herpes simplex virus 1+2 IgM Ab [Units/volume] in Seru m by Immunoassay <0.91 Ratio 0.00-0.90 [facility] Negative <0.91 Equivocal 0.91 - 1.09 Positive >1.09 ID Date Data Source [id number] 05/17/2021 04:56:00 PM EDT [facility] Value Range Interpretation Code Description Data Yadi rce(s) Supporting Document(s) Herpes simplex virus 1 IgG Ab [Units/volume] in Serum by Immunoassay <0.91 index 0.00-0.90 [facility] Negative <0.91 Equivocal 0.91 - 1.09 Positive >1.09 Note: Negative indicates no antibodies detected to HSV-1. Equivocal may suggest early infection. If clinically appropriate, retest at later date. Positive indicates antibodies detected to HSV-1. Herpes simplex virus 2 IgG Ab [Units/volume] in Serum by Imm unoassay 2.06 index 0.00-0.90 H [facility] Negative <0.91 Equivocal 0.91 - 1.09 Positive >1.09 Note: Negative indicates no antibodies detected to HSV-2. Equivocal may suggest early infection. If clinically appropriate, retest at later date. Positive indicates antibodies detected to HSV-2. Herpes simplex virus 2 IgG Ab [Presence] in Serum or P lasma by Immunoassay Positive Negative A [facility] HSV-2 IgG HSV-2 IgG Type Specific Confirmation Interpretation Positiv e/Equivocal Positive Indicates the presence of detectable IgG antibodies to HSV-2. ------ Positive/Equivocal Negative Unable to confirm the presence of IgG antibodies to HSV-2. Recommend retesting in 2-4 weeks. ID Date Data Source [id number] [facility] Interpretation Code Description Data Yadi rce(s) Supporting Document(s) HIV 1+2 Ab+HIV1 p24 Ag [Presence] in Serum or Plasma b y Immunoassay Non Reactive Non Reactive [facility] ID Date Data Source [id number] 05/17/2021 04:48:00 PM EDT [facility] Name Value Range Interpretation Code Description Data Yadi rce(s) Supporting Document(s) Hepatitis C virus Ab Signal/Cutoff in Serum or Plasma by Immunoassay <0.1 s/coratio 0.0-0.9 [facility] ID Date Data Source [id number] 05/16/2021 02:29:00 PM EDT [facility] Name Value Range Interpretation Code Description Data Yadi rce(s) Supporting Document(s) Hepatitis B virus surface Ab [Units/volume] in Serum o r Plasma by Immunoassay NONREACTIVE NORMAL:NON REACTIVE [facility] ID Date Data Source [id number] 05/16/2021 02:29:00 PM EDT [facility] Name Value Range Interpretation Code Description Data Yadi rce(s) Supporting Document(s) Treponema pallidum Ab [Presence] in Serum NON-REACTIVE NORMAL:NON KALPA[place] CTIVE [facility] ID Date Data Source [id number] 05/12/2021 08:28:00 AM EDT [facility] ([facility]) Name Value Range Interpretation Code Description Data Yadi rce(s) Supporting Document(s) Laboratory test finding (navigational concept) Laboratory test result [facility] ([facility]) .~.~Z11.59 Sars-CoV-2, Anne Laboratory test result [facility] ([facility]) .~.~Z11.59 ID Date Data Source [id number] 05/12/2021 08:28:00 AM EDT [facility] Name Value Range Interpretation Code Description Data Yadi rce(s) Supporting Document(s) SARS coronavirus [address] [facility] This lab was ordered by [facility] Charlie montero and reported by [facility]. ID Date Data Source [id number] 05/14/2021 06:53:00 AM EDT [facility] Name Value Range Interpretation Code Description Data Yadi rce(s) Supporting Document(s) SARS-CoV-2, ANNE Not Detected Not Detected [facility] This nucleic acid amplification test was developed and its performancecharacteristics determined by [employer]. Nucleic acidamplification tests include RT-PCR and TMA. [...] assay. SARS-CoV-2, ANNE 2 DAY TAT Performed [facility] ID Date Data Source [id number] 05/12/2021 08:28:00 AM EDT [facility] ([facility]) Name Value Range Interpretation Code Description Data Yadi rce(s) Supporting Document(s) Covid-19 Laboratory test result [facility] ([facility]) ID Date Data Source [id number] 05/12/2021 07:44:00 AM EDT [facility] 1 Medication Reconciliation Report [facility] Emergency Department [address] [place] [address] Phone #: ext- [phone] 05/12/2021 07:40 Patient: [...] rce(s) Supporting Document(s) ID Date Data Source [id number] 05/12/2021 07:44:00 AM EDT [facility] 1 Medication Administration Record [facility] Emergency Department [address] [place] [address] Phone #: ext- [phone] 05/12/2021 07:40 Patient: ANTOINETTE NOGUERA Sex: F : 1985 Age: 35yWeight: 67.1 kgHeight/Length: 61 inBMI: 28ALLERGIES: Morphine and RelatedDate/Time Medication Administered Medication Ordered Name Value Range Interpretation Code Description Data Yadi [facility](s) Supporting Document(s) ID Date Data Source [id number] 05/12/2021 07:44:00 AM EDT [facility] 1 General Instructions [facility] Emergency Department [address] [place] [address] Phone #: ext- [phone] 05/12/2021 07:40 Patient: [...] rce(s) Supporting Document(s) ID Date Data Source [id number] 05/12/2021 07:44:00 AM EDT [facility] 1 Clinical Report - Nurses [facility] Emergency Department [address] [place] [address] Phone #: ext- [phone] 05/12/2021 07:40 Patient: [...] had fever (wednesday). 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 (330).SEPSIS SCREEN: SIRS SCREEN NEGATIVE. SEPSIS [...] personality disorder.Diarrhea.Headache.Schizophrenia. 2 Clinical Report - Nurses [facility] Emergency Department [address] [place] [address] Phone #: ext- [phone] 05/12/2021 07:40 Patient: [id number] Sex: F : 1985 Age: 35yVomiting.Seasonal allergic rhinitis.Mood Disorder. --07:49 05/12/21 Simi Maradiaga R.N.The following entry was modified by Simi Maradiaga R.N., 07:49 05/12/21Hyperthyroidism. --07:48 05/12/21 Simi Maradiaga R.N.The following entry was modified by Simi Maradiaga R.N., 07:49 05/12/21ITP. --07:48 05/12/21 Simi Maradiaga R.N.The following entry was modified by Simi Maradiaga R.N., 07:49 05/12/21Migraine Headache. --07:48 05/12/21 Simi Maradigaa R.N..ADDITIONAL SURGERIES: (X4).Tonsillectomy.Tubal Ligation. --07:49 05/12/21 Simi [...] Maradiaga R.N. 3 Clinical Report - Nurses [facility] Emergency Department [address] [place] [address] Phone #: ext- [phone] 05/12/2021 07:40 Patient: [...] rce(s) Supporting Document(s) ID Date Data Source [id number] 05/12/2021 07:44:00 AM EDT [facility] 1 Clinical Report - Physicians/Mid Levels [facility] Emergency Department [address] [place] [address] Phone #: ext- [phone] 05/12/2021 07:40 Patient: [...] Related.(hives, rash). 2 Clinical Report - Physicians/Mid [facility] Emergency Department [address] [place] [address] Phone #: ext- [phone] 05/12/2021 07:40 Patient: [...] 07:59 05/12/21. pt was initially rude to new grad rn, berated her, then I came into roomafterwards [...] rce(s) Supporting Document(s) ID Date Data Source [id number] 05/07/2021 02:29:00 PM EDT [facility] ([facility]) Name Value Range Interpretation Code Description Data Yadi rce(s) Supporting Document(s) Z#Other Observations Laboratory test result [facility] ([facility]) ID Date Data Source [id number] 05/07/2021 02:29:00 PM EDT [facility] ([facility]) Name Value Range Interpretation Code Description Data Yadi rce(s) Supporting Document(s) Chlamydia trachomatis rRNA [Presence] in Unspecified s pecimen by DNA probe Laboratory test result [facility] ([facility]) Neisseria gonorrhoeae DNA [Presence] in Cervical mucus by Probe and target amplification method Laboratory test result [facility] ([facility]) ID Date Data Source [id number] 05/07/2021 02:27:00 PM EDT [facility] ([facility]) Name Value Range Interpretation Code Description Data Yadi rce(s) Supporting Document(s) Source: Laboratory test result [facility] ([facility]) {SOURCE: Genital Ladi species Laboratory test result Abnormal (applies to non-numeric results) [facility] ([facility]) {SOURCE: Genital Gardnerella vaginalis Laboratory test result Abn ormal (applies to non-numeric results) [facility] ([facility]) {SOURCE: Genital Trichomonas vaginalis Laboratory test result [facility] ([facility]) {SOURCE: Genital ID Date Data Source [id number] 05/07/2021 02:27:00 PM EDT [facility] ([facility]) Name Value Range Interpretation Code Description Data Yadi rce(s) Supporting Document(s) Chlamydia by Anne Laboratory test result [facility] ([facility]) {SOURCE: Genital Source: Laboratory test result [facility] ([facility]) {SOURCE: Genital Trich vag by Anne Laboratory test result [facility] ([facility]) {SOURCE: Genital Gonococcus by Anne Laboratory test result [facility] ([facility]) {SOURCE: Genital ID Date Data Source [id number] 05/07/2021 02:27:00 PM EDT [facility] ([facility]) Name Value Range Interpretation Code Description Data Yadi rce(s) Supporting Document(s) Treponema pallidum IgG Ab [Presence] in Serum Laboratory test result [facility] ([facility]) Laboratory test finding (navigational concept) Laboratory test result [facility] ([facility]) Hepatitis B virus surface Ag [Presence] in Serum or Pl asma by Immunoassay Laboratory test result [facility] ([facility]) ID Date Data Source [id number] 05/07/2021 02:27:00 PM EDT [facility] ([facility]) Name Value Range Interpretation Code Description Data Yadi rce(s) Supporting Document(s) Hepatitis C virus Ab [Units/volume] in Serum by Immuno assay Laboratory test result [facility] ([facility]) ID Date Data Source [id number] 05/07/2021 02:27:00 PM EDT [facility] ([facility]) Name Value Range Interpretation Code Description Data Yadi rce(s) Supporting Document(s) Treponema pallidum Ab [Presence] in Serum Laboratory test result [facility] ([facility]) ID Date Data Source [id number] 05/10/2021 06:44:00 AM EDT [facility] Name Value Range Interpretation Code Description Data Yadi rce(s) Supporting Document(s) SOURCE: Genital [facility] Chlamydia trachomatis rRNA [Presence] in Unspecified specimen by Probe and target amplification method Negative Negative [facility] Neisseria gonorrhoeae rRNA [Presence] in Unspecified specimen by Probe and target amplification method Negative Negative [facility] Trichomonas vaginalis DNA [Presence] in Unspecified specimen by Probe and target amplification method Negative Negative [facility] ID Date Data Source [id number] 05/09/2021 07:41:00 PM EDT [facility] Name Value Range Interpretation Code Description Data Yadi rce(s) Supporting Document(s) [facility]: [facility] [Presence] in Vaginal fluid by DNA probe Positive N egative [facility] Gardnerella vaginalis rRNA [Presence] in Genital specimen by DNA probe Positive Negative A [facility] Trichomonas vaginalis rRNA [Presence] in Genital specimen by DNA probe Negative Negative [facility] ID Date Data Source [id number] 05/07/2021 02:05:00 PM EDT [facility] ([facility]) Name Value Range Interpretation Code Description Data Yadi rce(s) Supporting Document(s) Laboratory test finding (navigational concept) Laboratory test result [facility] ([facility]) .~.~R30.0 Color Laboratory test result [facility] ([facility]) .~.~R30.0 Source Laboratory test result [facility] ([facility]) .~.~R30.0 Spec [place] 1.020 1.001-1.030 [facility] ([facility]) .~.~R30.0 Clarity Laboratory test result [facility] ([facility]) .~.~R30.0 Glucose Laboratory test result [facility] ([facility]) .~.~R30.0 pH 6 5-9 [facility] ([facility]) .~.~R30.0 Bilirubin Laboratory test result [facility] ([facility]) .~.~R30.0 Ketone Laboratory test result [facility] ([facility]) .~.~R30.0 Nitrite Laboratory test result [facility] ([facility]) .~.~R30.0 Protein 15 [facility] ([facility]) .~.~R30.0 Leuk Est 25 [facility] ([facility]) .~.~R30.0 Blood 10 Abnormal (applies to non-numeric res ults) [facility] ([facility]) .~.~R30.0 Urobilinogen Laboratory test result [facility] ([facility]) .~.~R30.0 Microscopic Laboratory test result M [facility] ([facility]) .~.~R30.0 RBC Laboratory test result [facility] ([facility]) .~.~R30.0 WBC Laboratory test result Abnormal (applies to non -numeric results) [facility] ([facility]) .~.~R30.0 Bacteria Laboratory test result Abnormal (applies to non -numeric results) [facility] ([facility]) .~.~R30.0 Epithelial Laboratory test result [facility] ([facility]) .~.~R30.0 Mucous Laboratory test result [facility] ([facility]) .~.~R30.0 Yeast Laboratory test result Abnormal (applies to non -numeric results) [facility] ([facility]) .~.~R30.0 ID Date Data Source [id number] 05/07/2021 02:05:00 PM EDT [facility] ([facility]) Name Value Range Interpretation Code Description Data Yadi rce(s) Supporting Document(s) Culture Urine Laboratory test result [facility] ([facility]) .~.~R30.0 ID Date Data Source [id number] 05/14/2021 02:06:00 PM EDT [facility] Name Value Range Interpretation Code Description Data Yadi rce(s) Supporting Document(s) CULTURE URINE [facility] spital _CULTURE URINE_$$[id number]$$[id number]$$865130$$296250$$488429$$837374$$315598$$272464$$999951$$ 608618$$168578$$865118$$592309$$695323$$045265$$191906$$323662$$752503$$057035$$ 379936$$586015$$801144$$798138$$249669$$812706$$010482$$[id number] -- Continued on next page --Patient: POORNIMA Denney Order: [id number] Page 2Culture: CULTURE URINE Status: Final ==== -- Continued on next page --Patient: POORNIMA Denney Order: [id number] Page 2Culture: CULTURE URINE Status: Prelim ===== -- Continued on next page --Patient: POORNIMA Denney Order: [id number] Page 2Culture: CULTURE URINE Status: Prelim =====$$[id number]$$[id number] DATE/TIME: 05/14/2021 12:06Culture: CULTURE URINE Status: FinalIsolate [...] 05/11/2021 07:12 ET Gram negative rodsUrine Culture,Comprehensive: [id number] coli Flag: APatient: POORNIMA Denney Order: [id number] Page 3Culture: CULTURE URINE Status: Final ====ISOLATE [...] S S . . . . . .86255-2Prgrhnaoyh S S . . . . . .267-5Imipenem S S . . . . . .279-0Levofloxacin S S . . . . . .19723-9Ifadkyfpy S S . . . . . .6652-2Nitrofurantoin S S . . . . . .363- 2Piperacillin/Tazobactam S S . . . . . .412-7Tetracycline S S . . . . . .496-0Tobramycin S S . . . . . .508-2Trimethoprim/Sulfa S S . . . . . .516-5P1 Test performed by: [facility] #: [id number] [address] [id number] [facility] [id number] Director : Armando Lang MD NPI #:Structural Engineering Project Manager : 05/12/21.0645.XMT.SENT REF 05/13/21.1623.XMT.SENT REF 05/14/21.1406.XMT.SENT REF ID Date Data Source [id number] 05/07/2021 08:53:00 PM EDT [facility] Name Value Range Interpretation Code Description Data Yadi rce(s) Supporting Document(s) UA REFLEX TO UA CULTURE [facility] URINALYSIS SOURCE R [facility] COLOR yellow NORMAL: Yellow [facility] CLARITY hazy NORMAL: Clear [facility] Specific gravity of Urine by Test strip 1.020 1.001 - 1.030 [facility] pH 6 5 - [address] [facility] Glucose [Mass/volume] in Urine by Test strip NORM [facility] Bil[facility].total [Presence] in Urine by Test strip NEG NORMAL: Negative [facility] Ketones [Presence] in Urine by Test strip NEG NORMAL: Negative [facility] Protein [Mass/volume] in Urine by Test strip 15 [facility] Nitrite [Presence] in Urine by Test strip POS NORMAL: Negative [facility] BLOOD 10 NORMAL: Negative [facility] Leukocyte esterase [Presence] in Urine by Test strip 25 SHARON L: Negative [facility] Urobilinogen [Mass/volume] in Urine by Test strip NOR less lynette n 1.0 mg/dL [facility] MICROSCOPIC See Below [facility] ital WBC 5 - 7 NORMAL: NONE SEEN [facility] Erythrocytes [#/volume] in Urine by Test strip 1 - 3 NORMAL: NON E SEEN [facility] EPITHELIAL None Seen NORMAL: NONE SEEN [facility] Bacteria [Presence] in Urine sediment by Light microscopy 3+ LARGE NORMAL: NONE SEEN A [facility] Mucus [Presence] in Urine sediment by Light microscopy 1+ NOR MAL: NONE SEEN [facility] YEAST Few A [facility] HYPAE YEAST ID Date Data Source [id number] 04/13/2021 02:54:00 PM EDT [facility] ([facility]) Name Value Range Interpretation Code Description Data Yadi rce(s) Supporting Document(s) Sars-CoV-2, Anne Laboratory test result [facility] ([facility]) This nucleic acid amplification test was developed and its performance characteristics determined by [facility]. Nucleic acid amplification tests include RT-PCR and [...] finding (navigational concept) Laboratory test result [facility] ([facility]) ID Date Data Source [id number] 04/16/2021 03:33:00 PM EDT [facility] Name Value Range Interpretation Code Description Data Yadi rce(s) Supporting Document(s) SARS-CoV-2, ANNE Not Detected Not Detected [facility] This nucleic acid amplification test was developed and its performancecharacteristics determined by [facility]. Nucleic acidamplification tests include RT-PCR and TMA. [...] assay. SARS-CoV-2, ANNE 2 DAY TAT Performed [facility] ID Date Data Source [id number] 04/13/2021 02:53:00 PM EDT [facility] Name Value Range Interpretation Code Description Data Yadi rce(s) Supporting Document(s) SARS coronavirus [address] [facility] This lab was ordered by [facility] Charlie montero and reported by [facility]. ID Date Data Source [id number] 03/26/2021 02:11:00 PM EDT [facility] ([facility]) Name Value Range Interpretation Code Description Data Yadi rce(s) Supporting Document(s) White Blood Count 9.9 10 4.0-10.0 Normal (applies to non-numeri c results) [facility] ([facility]) Red Blood Count 4.22 10 4.00-5.40 Normal (applies to non-numeric results) [facility] ([facility]) Hemoglobin 13.1 g/dL 12.0-15.5 Normal (applies to non-numeric resul ts) [facility] ([facility]) Hematocrit 39.7 % 36.0-47.0 Normal (applies to non-numeric resul ts) [facility] ([facility]) Mean Corpuscular Volume 94.1 fl 80.0-96.0 Normal ( applies to non-numeric results) [facility] ([facility]) Mean Corpuscular Hemoglobin 31.0 pg 27.0-33.0 Norm al (applies to non-numeric results) [facility] ([facility]) Mean Corpuscular HGB Conc 33.0 g/dL 32.0-36.5 Normal (applies to non-numeric results) [facility] ([facility]) Red Cell Distribution Width 14.5 % 11.5-14.5 Norm al (applies to non-numeric results) [facility] ([facility]) Platelet Count, Automated 245 10 150-450 Normal (applies to non-numeric results) [facility] ([facility]) Neutrophils % 64.3 % 36.0-66.0 Normal (applies to non-numeric re sults) [facility] ([facility]) Lymph % 27.1 % 24.0-44.0 Normal (applies to non-numeric resul ts) [facility] ([facility]) Eos % 1.5 % 0.0-3.0 Normal (applies to non-numeric resul ts) [facility] ([facility]) [place] % 6.4 % 2.0-8.0 Normal (applies to non-numeric resul ts) [facility] ([facility]) Nucleated Red Blood Cell % 0.0 % 0-0 Normal (applies to n on-numeric results) [facility] ([facility]) Baso % 0.3 % 0.0-1.0 Normal (applies to non-numeric resul ts) [facility] ([facility]) Immature Granulocyte % 0.4 % 0-3.0 Normal (applies to non-n umeric results) [facility] ([facility]) Neutrophils # 6.4 10 1.5-8.5 Normal (applies to non-numeric re sults) [facility] ([facility]) Lymph # 2.7 10 1.5-5.0 Normal (applies to non-numeric resul ts) [facility] ([facility]) Eos # 0.2 10 0.0-0.5 Normal (applies to non-numeric resul ts) [facility] ([facility]) [place] # 0.6 10 0.0-0.8 Normal (applies to non-numeric resul ts) [facility] ([facility]) Baso # 0.0 10 0.0-0.2 Normal (applies to non-numeric resul ts) [facility] ([facility]) ID Date Data Source [id number] 03/26/2021 02:11:00 PM EDT [facility] ([facility]) Name Value Range Interpretation Code Description Data Yadi rce(s) Supporting Document(s) Glucose, Fasting 109 mg/dL 70-100 Above high normal M [facility] ([facility]) Blood Urea Nitrogen 14 mg/dL 7-18 Normal (applies to non-nume boyb results) [facility] ([facility]) Creatinine For GFR 0.66 mg/dL 0.55-1.30 Normal (applies to non -numeric results) [facility] ([facility]) Glomerular Filtration Rate Laboratory test result Normal (applies to non- numeric results) [facility] ([facility]) <content>Units are mL/min/1.73 m2</content>
<content></content>
<content>Chronic Kidney Disease Staging per NKF:</content>
<content></content>
<content>Stage I & II GFR >=60 Normal to Mildly Decreased</content>
<content>Stage III GFR 30- 59 Moderately Decreased</content>
<content>Stage IV GFR 15-29 Severely Decreased</content>
<content>Stage V GFR <15 Very Little GFR Left</content>
<content>ESRD GFR <15 on [employer]PRESENTATIVE</content>
<content></content> Sodium Level 141 meq/L 136-145 Normal (applies to non-numeric res ults) [facility] ([facility]) Potassium Serum 3.9 meq/L 3.5-5.1 Normal (applies to non-numeric results) [facility] ([facility]) Chloride Level 111 meq/L 98-107 Above high normal [facility] ([facility]) Carbon Dioxide Level 26 meq/L 21-32 Normal (applies to non-num maye results) [facility] ([facility]) Calcium Level 8.9 mg/dL 8.5-10.1 Normal (applies to non-numeric re sults) [facility] ([facility]) Anion Gap 4 meq/L 8-16 Below low normal [facility] ( [facility]) Ast/Sgot 12 U/L 7-37 Normal (applies to non-numeric resul ts) [facility] ([facility]) Alt/SGPT 18 U/L 12-78 Normal (applies to non-numeric resul ts) [facility] ([facility]) Alkaline Phosphatase 76 U/L 45-117 Normal (applies to non-num maye results) [facility] ([facility]) Bilirubin,Total 0.5 mg/dL 0.2-1.0 Normal (applies to non-numeric results) [facility] ([facility]) Albumin 3.9 GM/DL 3.2-5.2 Normal (applies to non-numeric resul ts) [facility] ([facility]) Total Protein 7.2 GM/DL 6.4-8.2 Normal (applies to non-numeric re sults) [facility] ([facility]) Albumin/Globulin Ratio 1.2 1.2-2.2 Normal (applies to non-n umeric results) [facility] ([facility]) ID Date Data Source [id number] 03/26/2021 02:11:00 PM EDT [facility] ([facility]) Name Value Range Interpretation Code Description Data Yadi rce(s) Supporting Document(s) Ferritin [Mass/volume] in Serum or Plasma 73 ng/mL 8-252 Normal (applies to non- numeric results) [facility] ([facility]) <content>note:<nlbl:demographic_changed> </content>
<content></content> ID Date Data Source [id number] 03/26/2021 02:11:00 PM EDT [facility] ([facility]) Name Value Range Interpretation Code Description Data Yadi rce(s) Supporting Document(s) Iron (Fe) 78 ug/dL 50-170 Normal (applies to non-numeric resul ts) [facility] ([facility]) Total Iron Binding Capacity 256 ug/dL 250-450 Norm al (applies to non-numeric results) [facility] ([facility]) Percent Saturation 30.5 % 13.2-45.0 Normal (applies to non-numer ic results) [facility] ([facility]) ID Date Data Source [id number] 02/07/2021 01:35:00 PM EDT [facility] ([facility]) Name Value Range Interpretation Code Description Data Yadi rce(s) Supporting Document(s) Sars-CoV-2, Anne Laboratory test result [facility] ([facility]) This nucleic acid amplification test was developed and its performance characteristics determined by [employer]. Nucleic acid amplification tests include RT-PCR and [...] test finding (navigational concept) Laboratory test result [facility] ([facility]) ID Date Data Source [id number] 02/09/2021 12:30:00 PM EDT [facility] Name Value Range Interpretation Code Description Data Yadi rce(s) Supporting Document(s) SARS-CoV-2, ANNE Not Detected Not Detected [facility] This nucleic acid amplification test was developed and its performancecharacteristics determined by [employer]. Nucleic acidamplification tests include RT-PCR and TMA. [...] assay. SARS-CoV-2, ANNE 2 DAY TAT Performed [facility] ID Date Data Source [id number] 02/07/2021 01:35:00 PM EDT [facility] Name Value Range Interpretation Code Description Data Yadi rce(s) Supporting Document(s) SARS coronavirus [address] [facility] This lab was ordered by [facility] Charlie montero and reported by [facility]. ID Date Data Source [id number] 02/04/2021 01:31:00 PM EDT [facility] ([facility]) Name Value Range Interpretation Code Description Data Yadi rce(s) Supporting Document(s) Uibc 173 ug/dL 112-347 [facility] ([facility]) Is patient fasting? N Iron 58 ug/dL 42-135 [facility] ([facility]) Is patient fasting? N Iron Sat 25 % [facility] ([facility]) Is patient fasting? N Tibc 231 ug/dL 250-450 Below low normal [facility] ( [facility]) Is patient fasting? N ID Date Data Source [id number] 02/04/2021 01:31:00 PM EDT [facility] ([facility]) Name Value Range Interpretation Code Description Data Yadi rce(s) Supporting Document(s) Iron binding capacity [Mass/volume] in Serum or Plasma Laborator y test result [facility] ([facility]) Iron [Mass/volume] in Serum or Plasma Laboratory test result [facility] ([facility]) Ferritin [Mass/volume] in Serum or Plasma 63.5 ng/mL 3.0-105 [facility] ([facility]) Is patient fasting? N ID Date Data Source [id number] 02/04/2021 01:31:00 PM EDT [facility] ([facility]) Name Value Range Interpretation Code Description Data Yadi rce(s) Supporting Document(s) Comprehensive Metabo Laboratory test result [facility] ([facility]) Is patient fasting? N Sodium 138 meq/L 134-153 [facility] ([facility]) Is patient fasting? N Potassium 4.2 meq/L 3.6-5.0 [facility] ([facility]) Is patient fasting? N Chloride 104 meq/L 98-107 [facility] ([facility]) Is patient fasting? N Co2 24 meq/L 22-30 [facility] ([facility]) Is patient fasting? N Glucose 106 mg/dL 70-99 Above high normal [facility] ([facility]) Is patient fasting? N BUN 8 mg/dL 7-21 [facility] ([facility]) Is patient fasting? N Total Protein 6.8 g/dL 6.3-8.2 [facility] ([facility]) Is patient fasting? N Creatinine 0.6 mg/dL 0.7-1.5 Below low normal [facility] ( [facility]) Is patient fasting? N BUN/Creat 13 8-27 [facility] ([facility]) Is patient fasting? N Globulin 2.3 GM/DL 2.4-3.2 Below low normal [facility] ( [facility]) Is patient fasting? N Albumin 4.5 g/dL 3.9-5.0 [facility] ([facility]) Is patient fasting? N A/G Ratio 2.0 0.8-2.0 [facility] ([facility]) Is patient fasting? N Total Bili Laboratory test result 0.2-1.3 [facility] ([facility]) Is patient fasting? N Calcium 9.3 mg/dL 8.4-10.2 [facility] ([facility]) Is patient fasting? N Alkaline Phos 89 U/L 38-126 [facility] ([facility]) Is patient fasting? N SGPT/Alt 7 U/L 7-56 [facility] ([facility]) Is patient fasting? N Sgot/Ast 16 U/L 5-40 [facility] ([facility]) Is patient fasting? N Age 35 yrs [facility] ([facility]) Is patient fasting? N Anion Gap 10.0 mmol/L 8.0-16.0 [facility] ([facility]) Is patient fasting? N Afr Amer GFR Laboratory test result [facility] ([facility]) Is patient fasting? N Non-Aa GFR Laboratory test result [facility] ([facility]) Is patient fasting? N ID Date Data Source [id number] 02/04/2021 01:31:00 PM EDT [facility] ([facility]) Name Value Range Interpretation Code Description Data Yadi rce(s) Supporting Document(s) Calcidiol [Mass/volume] in Serum or Plasma 19 ng/mL [facility] ([facility]) Is patient fasting? N Cobalamin (Vitamin B12) [Mass/volume] in Serum or Plasma 204 pg/ mL 232-1245 Below low normal [facility] ([facility]) Is patient fasting? N ID Date Data Source [id number] 02/04/2021 01:31:00 PM EDT [facility] ([facility]) Name Value Range Interpretation Code Description Data Yadi rce(s) Supporting Document(s) WBC 10.1 10^3/uL 4.2-11.0 [facility] ([facility]) Is patient fasting? N CBC W/Automated Diff Laboratory test result [facility] ([facility]) Is patient fasting? N Hematocrit 41.2 % 37.0-47.0 [facility] ([facility]) Is patient fasting? N RBC 4.55 10^6/uL 4.20-5.40 [facility] ([facility]) Is patient fasting? N Hemoglobin 13.7 g/dL 12.0-16.0 [facility] ([facility]) Is patient fasting? N MCH 30.1 pg 27.0-34.0 [facility] ([facility]) Is patient fasting? N MCV 90.5 fL 81.0-101 [facility] ([facility]) Is patient fasting? N MCHC 33.3 g/dL 31.0-36.0 [facility] ([facility]) Is patient fasting? N Platelets 259 10^3/uL 150-450 [facility] ([facility]) Is patient fasting? N MPV 9.1 fL 7.4-10.4 [facility] ([facility]) Is patient fasting? N RDW 15.1 % 11.5-14.5 Above high normal [facility] ([facility]) Is patient fasting? N Lymph 34.6 % 25.0-40.0 [facility] ([facility]) Is patient fasting? N Neut 54.3 % 37.0-80.0 [facility] ([facility]) Is patient fasting? N Eos 2.8 % 0.0-7.0 [facility] ([facility]) Is patient fasting? N [place] 7.5 % 3.0-8.0 [facility] ([facility]) Is patient fasting? N %NRBC 0.0 % 0.0-0.0 [facility] ([facility]) Is patient fasting? N Baso 0.4 % 0.0-2.5 [facility] ([facility]) Is patient fasting? N %Ig 0.4 % 0.0-0.0 Above high normal [facility] ([facility]) Is patient fasting? N #Neut 5.48 10^3/uL 2.00-6.90 [facility] ([facility]) Is patient fasting? N #Lymph 3.49 10^3/uL 0.60-3.40 Above high normal [facility] ([facility]) Is patient fasting? N #[place] 0.76 10^3/uL 0.00-0.90 [facility] ([facility]) Is patient fasting? N #Eos 0.28 10^3/uL 0.00-0.70 [facility] ([facility]) Is patient fasting? N #Baso 0.04 10^3/uL 0.00-0.20 [facility] ([facility]) Is patient fasting? N #NRBC 0.00 10^3/uL 0.00-0.00 [facility] ([facility]) Is patient fasting? N #Ig 0.04 10^3/uL 0.00-0.10 [facility] ([facility]) Is patient fasting? N RBC Morph Laboratory test result [facility] ([facility]) Is patient fasting? N Manual Diff Laboratory test result [facility] ([facility]) Is patient fasting? N ID Date Data Source [id number] 02/04/2021 06:29:00 PM EDT [facility] Name Value Range Interpretation Code Description Data Yadi rce(s) Supporting Document(s) COMPREHENSIVE METABOLIC PANEL [facility] COMPREHENSIVE METABOLIC PANEL Sodium [Moles/volume] in Serum or Plasma 138 mEq/L 134 - 153 [facility] Potassium [Moles/volume] in Serum or Plasma 4.2 mEq/L 3.6 - 5.0 [facility] Chloride [Moles/volume] in Serum or Plasma 104 mEq/L 98 - 107 [facility] Carbon dioxide, total [Moles/volume] in Serum or Plasma 24 MEQ/L 22 - 30 [facility] Glucose [Mass/volume] in Serum or Plasma 106 MG/DL 70 - 99 H [facility] BUN 8 MG/DL 7 - 21 [facility] al Creatinine [Mass/volume] in Serum or Plasma 0.6 MG/DL 0.7 - 1.5 L [facility] BUN/CREAT 13 8 - 27 [facility] al Protein [Mass/volume] in Serum or Plasma 6.8 G/DL 6.3 - 8.2 [facility] Albumin [Mass/volume] in Serum or Plasma 4.5 G/DL 3.9 - 5.0 [facility] Globulin [Mass/volume] in Serum by calculation 2.3 GM/DL 2.4 - 3.2 L [facility] A/G RATIO 2.0 0.8 - 2.0 [facility] Calcium [Mass/volume] in Serum or Plasma 9.3 MG/DL 8.4 - 10.2 [facility] Bilirubin.total [Mass/volume] in Serum or Plasma <0.7 MG/DL 0.2 - 1.3 [facility] Alkaline phosphatase [Enzymatic activity/volume] in Serum or Plasma 89 U/L 38 - 126 [facility] Aspartate aminotransferase [Enzymatic activity/volume] in Serum or Plasma 16 U/L 5 - 40 [facility] Alanine aminotransferase [Enzymatic activity/volume] in Seru m or Plasma 7 U/L 7 - 56 [facility] Anion gap 3 in Serum or Plasma 10.0 mmol/L 8.0 - 16.0 [facility] AGE 35 yrs [facility] al NON-AA GFR >60 mL/min [facility] Hosp ital AFR AMER GFR >60 mL/min [facility] Ho spital Male GFR In terprentation 20-49 [...] >32 mL/min Normal ID Date Data Source [id number] 02/04/2021 06:00:00 PM EDT [facility] Name Value Range Interpretation Code Description Data Yadi rce(s) Supporting Document(s) Cobalamin (Vitamin B12) [Mass/volume] in Serum or Plasma 204 PG/ML 232 - 1245 L [facility] ID Date Data Source [id number] 02/04/2021 05:58:00 PM EDT [facility] Name Value Range Interpretation Code Description Data Yadi rce(s) Supporting Document(s) Calcidiol [Moles/volume] in Serum or Plasma 19 NG/ML [facility] VITAMIN-D(2 5HYDROXY) Deficiency: <=20 ng/ml Insufficiency: 21-29 ng/ml Preferred level: => 30 ng/ml ID Date Data Source [id number] 02/04/2021 05:58:00 PM EDT [facility] Name Value Range Interpretation Code Description Data Yadi rce(s) Supporting Document(s) Ferritin [Mass/volume] in Serum or Plasma 63.5 ng/mL 3.0 - 105 [facility] ID Date Data Source [id number] 02/04/2021 05:36:00 PM EDT [facility] Name Value Range Interpretation Code Description Data Yadi rce(s) Supporting Document(s) Iron [Mass/volume] in Serum or Plasma 58 UG/DL 42 - 135 [facility] Iron binding capacity.unsaturated [Mass/volume] in Serum or Plasma 173 UG/DL 112 - 347 [facility] Iron binding capacity [Mass/volume] in Serum or Plasma 231 ug/dL 250 - 450 L [facility] Iron saturation [Mass Fraction] in Serum or Plasma 25 % [facility] ID Date Data Source [id number] 02/04/2021 05:32:00 PM EDT [facility] Name Value Range Interpretation Code Description Data Yadi rce(s) Supporting Document(s) CBC W/AUTOMATED DIFF [facility] COMPLETE BLOOD COUNT Leukocytes [#/volume] in Blood by Automated count 10.1 10^3/uL 4.2 - 11.0 [facility] Erythrocytes [#/volume] in Blood by Automated count 4.55 10^6/uL 4. 20 - 5.40 [facility] Hemoglobin [Mass/volume] in Blood 13.7 g/dL 12.0 - 16.0 [facility] Hematocrit [Volume Fraction] of Blood by Automated count 41.2 % 3 7.0 - 47.0 [facility] Erythrocyte mean corpuscular volume [Entitic volume] by Auto mated count 90.5 fL 81.0 - 101 [facility] Erythrocyte mean corpuscular hemoglobin [Entitic mass] by Automated count 30.1 pg 27.0 - 34.0 [facility] Erythrocyte mean corpuscular hemoglobin concentration [Mass/volume] by Automated count 33.3 g/dL 31.0 - 36.0 [facility] Erythrocyte distribution width [Ratio] by Automated count 15.1 % 11.5 - 14.5 H [facility] Platelets [#/volume] in Blood by Automated count 259 10^3/uL 150 - 45 0 [facility] Platelet mean volume [Entitic volume] in Blood by Automated count 9.1 fL 7.4 - 10.4 [facility] Neutrophils/100 leukocytes in Blood by Automated count 54.3 % 37. 0 - 80.0 [facility] Lymphocytes/100 leukocytes in Blood by Manual count 34.6 % 25.0 - 40.0 [facility] Monocytes/100 leukocytes in Blood by Automated count 7.5 % 3.0 - 8.0 [facility] Eosinophils/100 leukocytes in Blood by Automated count 2.8 % 0.0 - 7.0 [facility] Basophils/100 leukocytes in Blood by Automated count 0.4 % 0.0 - 2.5 [facility] %IG 0.4 % 0.0 - 0.[address] [facility] 0.0 % 0.0 - 0.0 [facility] al Neutrophils [#/volume] in Blood by Automated count 5.48 10^3/uL 2.00 - 6.90 [facility] Lymphocytes [#/volume] in Blood by Automated count 3.49 10^3/uL 0.60 - 3.40 H [facility] Monocytes [#/volume] in Blood by Automated count 0.76 10^3/uL 0.00 - 0.90 [facility] Eosinophils [#/volume] in Blood by Automated count 0.28 10^3/uL 0.00 - 0.70 [facility] Basophils [#/volume] in Blood by Automated count 0.04 10^3/uL 0.00 - 0.20 [facility] #IG 0.04 10^3/uL 0.00 - 0.10 [facility] ospital #NRBC 0.00 10^3/uL 0.00 - 0.00 [facility] ospital MANUAL DIFF NOT INDICATED [facility] RBC MORPH NOT INDICATED [facility] spital ID Date Data Source [id number] 01/27/2021 12:38:00 PM EDT [facility] ([facility]) Name Value Range Interpretation Code Description Data Yadi rce(s) Supporting Document(s) Thyroxine (T4) free [Mass/volume] in Serum or Plasma 1.27 ng/dL 0.93- 1.70 [facility] ([facility]) Thyrotropin [Units/volume] in Serum or Plasma 0.34 uIU/mL 0. 47-5.01 Below low normal [facility] ([facility]) ID Date Data Source [id number] 01/27/2021 12:38:00 PM EDT [facility] ([facility]) Name Value Range Interpretation Code Description Data Yadi rce(s) Supporting Document(s) Thyroxine (T4) free [Mass/volume] in Serum or Plasma 1.27 ng/dL 0.93- 1.70 [facility] ([facility]) Thyrotropin [Units/volume] in Serum or Plasma 0.34 uIU/mL 0.47-5.01 [facility] ([facility]) ID Date Data Source [id number] 01/27/2021 08:25:00 PM EDT [facility] Name Value Range Interpretation Code Description Data Yadi rce(s) Supporting Document(s) Thyrotropin [Units/volume] in Serum or Plasma by Detec tion limit <= 0.05 mIU/L 0.34 uIU/mL 0.47 - 5.01 L [facility] ID Date Data Source [id number] 01/27/2021 01:42:00 PM EDT [facility] Name Value Range Interpretation Code Description Data Yadi rce(s) Supporting Document(s) Thyroxine (T4) free index in Serum or Plasma by calculation 1.27 NG/DL 0.93 - 1.70 [facility] ID Date Data Source [id number] 12/13/2020 03:37:00 PM EDT [facility] ([facility]) Name Value Range Interpretation Code Description Data Yadi rce(s) Supporting Document(s) Coronavirus Covid-19 Laboratory test result [facility] ([facility]) This nucleic acid amplification test was developed and its performance characteristics determined by [employer]. Nucleic acid amplification tests include RT-PCR and [...] in this assay. ID Date Data Source [id number] 12/13/2020 03:37:00 PM EDT [facility] ([facility]) Name Value Range Interpretation Code Description Data Yadi rce(s) Supporting Document(s) Influenza virus A RNA [Presence] in Unsp ecified specimen by Probe and target amplification method Laboratory test result [facility] ([facility]) Influenza virus B RNA [Presence] in Unsp ecified specimen by Probe and target amplification method Laboratory test result [facility] ([facility]) ID Date Data Source [id number] 12/13/2020 03:37:00 PM EDT [facility] Name Value Range Interpretation Code Description Data Yadi rce(s) Supporting Document(s) SARS coronavirus [address] [facility] This lab was ordered by [facility] kylah and reported by [email or web address]. ID Date Data Source [id number] 12/16/2020 03:20:00 PM EDT [facility] Name Value Range Interpretation Code Description Data Yadi rce(s) Supporting Document(s) SARS-CoV-2, ANNE Not Detected Not Detected [facility] This nucleic acid amplification test was developed and its performancecharacteristics determined by [employer]. Nucleic acidamplification tests include RT-PCR and TMA. [...] in this assay. ID Date Data Source [id number] 11/21/2020 03:43:00 PM EDT [facility] ([facility]) Name Value Range Interpretation Code Description Data Yadi rce(s) Supporting Document(s) Sars-CoV-2, Anne Laboratory test result [facility] ([facility]) This nucleic acid amplification test was developed and its performance characteristics determined by [employer]. Nucleic acid amplification tests include RT-PCR and [...] finding (navigational concept) Laboratory test result [facility] ([facility]) ID Date Data Source [id number] 11/21/2020 03:43:00 PM EDT [facility] Name Value Range Interpretation Code Description Data Yadi rce(s) Supporting Document(s) SARS coronavirus [address] [facility] This lab was ordered by [facility] Charlie montero and reported by [email or web address]. ID Date Data Source [id number] 11/24/2020 07:21:00 AM EDT [facility] Name Value Range Interpretation Code Description Data Yadi rce(s) Supporting Document(s) SARS-CoV-2, ANNE Not Detected Not Detected [facility] This nucleic acid amplification test was developed and its performancecharacteristics determined by [employer]. Nucleic acidamplification tests include RT-PCR and TMA. [...] assay. SARS-CoV-2, ANNE 2 DAY TAT Performed [facility] ID Date Data Source [id number] 11/21/2020 03:43:00 PM EDT [facility] ([facility]) Name Value Range Interpretation Code Description Data Yadi rce(s) Supporting Document(s) Covid-19 Laboratory test result [facility] ([facility]) ID Date Data Source [id number] 10/18/2020 01:04:00 PM EST [facility] ([facility]) Name Value Range Interpretation Code Description Data Yadi rce(s) Supporting Document(s) [place] [Mass/volume] in Serum or Plasma 0.5 mmol/L 0.6-1.2 Below low normal [facility] ([facility]) <content>Detection Limit = 0.1</content>
<content><0.1 indicates None Detected</content>
<content></content> ID Date Data Source [id number] 10/18/2020 01:04:00 PM EST [facility] ([facility]) Name Value Range Interpretation Code Description Data Yadi rce(s) Supporting Document(s) Cholesterol 218 mg/dL 131-200 Above high normal [facility] ([facility]) Is patient fasting? N Cve Panel Laboratory test result [facility] ([facility]) LIPID PANEL Triglycerides 89 mg/dL 35-160 [facility] ([facility]) Is patient fasting? N HDL 51 mg/dL 29-86 [facility] ([facility]) Is patient fasting? N LDL 170 mg/dL 65-175 [facility] ([facility]) Is patient fasting? N Risk Factor 4.3 3.2-4.4 [facility] ([facility]) Is patient fasting? N LDL/HDL 3.33 1.47-3.22 Above high normal [facility] ([facility]) CVE RISK CHOL/HDL LDL/HDL MEN: 1/2 AVERAGE 3.43 1.00 AVERAGE 4.97 3.55 2X AVERAGE 9.55 6.25 3X AVERAGE 23.99 7.99 WOMEN: 1/2 AVERAGE 3.27 1.47 AVERAGE 4.44 3.22 2X AVERAGE 7.05 5.03 3X AVERAGE 11.04 6.14 ID Date Data Source [id number] 10/18/2020 01:04:00 PM EST [facility] ([facility]) Name Value Range Interpretation Code Description Data Yadi rce(s) Supporting Document(s) Hemoglobin A1c/Hemoglobin.total in Blood 5.1 % 4.4-6.1 [facility] ([facility]) {A1] {HB] ID Date Data Source [id number] 10/18/2020 01:04:00 PM EST [facility] ([facility]) Name Value Range Interpretation Code Description Data Yadi rce(s) Supporting Document(s) Comprehensive [employer] Laboratory test result [facility] ([facility]) COMPREHENSIVE METABOLIC PANEL Sodium 139 meq/L 134-153 [facility] ([facility]) Is patient fasting? N Potassium 4.1 meq/L 3.6-5.0 [facility] ([facility]) Is patient fasting? N Chloride 105 meq/L 98-107 [facility] ([facility]) Is patient fasting? N Co2 26 meq/L 22-30 [facility] ([facility]) Is patient fasting? N Glucose 99 mg/dL 70-99 [facility] ([facility]) Is patient fasting? N BUN 13 mg/dL 7-21 [facility] ([facility]) Is patient fasting? N Creatinine 0.6 mg/dL 0.7-1.5 Below low normal [facility] ( [facility]) Is patient fasting? N Total Protein 6.7 g/dL 6.3-8.2 [facility] ([facility]) Is patient fasting? N BUN/Creat 22 8-27 [facility] ([facility]) Is patient fasting? N Albumin 4.4 g/dL 3.9-5.0 [facility] ([facility]) Is patient fasting? N Globulin 2.3 GM/DL 2.4-3.2 Below low normal [facility] ( [facility]) Is patient fasting? N A/G Ratio 1.9 0.8-2.0 [facility] ([facility]) Is patient fasting? N Calcium 9.1 mg/dL 8.4-10.2 [facility] ([facility]) Is patient fasting? N Total Bili Laboratory test result 0.2-1.3 [facility] ([facility]) Is patient fasting? N Alkaline Phos 67 U/L 38-126 [facility] ([facility]) Is patient fasting? N Sgot/Ast 12 U/L 5-40 [facility] ([facility]) Is patient fasting? N Anion Gap 8.0 mmol/L 8.0-16.0 [facility] ([facility]) Is patient fasting? N SGPT/Alt 10 U/L 7-56 [facility] ([facility]) Is patient fasting? N Age 35 yrs [facility] ([facility]) Is patient fasting? N Non-Aa GFR Laboratory test result [facility] ([facility]) Is patient fasting? N Afr Amer GFR Laboratory test result [facility] ([facility]) Male GFR Interprentation 20-49 yrs >60 mL/min [...] >32 mL/min Normal ID Date Data Source [id number] 10/18/2020 01:04:00 PM EST [facility] ([facility]) Name Value Range Interpretation Code Description Data Yadi rce(s) Supporting Document(s) CBC W/Automated Diff Laboratory test result [facility] ([facility]) COMPLETE BLOOD COUNT WBC 11.1 10^3/uL 4.2-11.0 Above high normal [facility] T ([facility]) Is patient fasting? N RBC 4.52 10^6/uL 4.20-5.40 [facility] ([facility]) Is patient fasting? N Hemoglobin 13.5 g/dL 12.0-16.0 [facility] ([facility]) Is patient fasting? N Hematocrit 40.8 % 37.0-47.0 [facility] ([facility]) Is patient fasting? N MCV 90.3 fL 81.0-101 [facility] ([facility]) Is patient fasting? N MCH 29.9 pg 27.0-34.0 [facility] ([facility]) Is patient fasting? N RDW 13.1 % 11.5-14.5 [facility] ([facility]) Is patient fasting? N MCHC 33.1 g/dL 31.0-36.0 [facility] ([facility]) Is patient fasting? N Platelets 239 10^3/uL 150-450 [facility] ([facility]) Is patient fasting? N MPV 8.3 fL 7.4-10.4 [facility] ([facility]) Is patient fasting? N Neut 49.1 % 37.0-80.0 [facility] ([facility]) Is patient fasting? N Lymph 40.2 % 25.0-40.0 Above high normal [facility] ([facility]) Is patient fasting? N Eos 2.8 % 0.0-7.0 [facility] ([facility]) Is patient fasting? N [place] 7.2 % 3.0-8.0 [facility] ([facility]) Is patient fasting? N Baso 0.5 % 0.0-2.5 [facility] ([facility]) Is patient fasting? N %Ig 0.2 % 0.0-0.0 Above high normal [facility] ([facility]) Is patient fasting? N %NRBC 0.0 % 0.0-0.0 [facility] ([facility]) Is patient fasting? N #Lymph 4.46 10^3/uL 0.60-3.40 Above high normal [facility] T ([facility]) Is patient fasting? N #Neut 5.46 10^3/uL 2.00-6.90 [facility] ([facility]) Is patient fasting? N #[place] 0.80 10^3/uL 0.00-0.90 [facility] ([facility]) Is patient fasting? N #Baso 0.05 10^3/uL 0.00-0.20 [facility] ([facility]) Is patient fasting? N #Eos 0.31 10^3/uL 0.00-0.70 [facility] ([facility]) Is patient fasting? N #Ig 0.02 10^3/uL 0.00-0.10 [facility] ([facility]) Is patient fasting? N #NRBC 0.00 10^3/uL 0.00-0.00 [facility] ([facility]) Is patient fasting? N Manual Diff Laboratory test result [facility] ([facility]) Is patient fasting? N RBC Morph Laboratory test result [facility] ([facility]) Is patient fasting? N ID Date Data Source [id number] 10/19/2020 04:29:00 PM EST [facility] Name Value Range Interpretation Code Description Data Yadi rce(s) Supporting Document(s) [place] [Moles/volume] in Serum or Plasma 0.5 mmol/L 0.6-1.2 L [facility] Detection Limit = 0.1 <0.1 indicates None Detected ID Date Data Source [id number] 10/18/2020 02:11:00 PM EST [facility] Name Value Range Interpretation Code Description Data Yadi rce(s) Supporting Document(s) CVE PANEL [facility] al LIPID PANEL Cholesterol [Mass/volume] in Serum or Plasma 218 MG/DL 131 - 200 H [facility] Deprecated Triglyceride [Mass/volume] in Serum or Plasma 89 MG/DL 3 5 - 160 [facility] HDL 51 MG/DL 29 - 86 [facility] al Cholesterol in LDL [Mass/volume] in Serum or Plasma by Direc t assay 170 mg/dL 65 - 175 [facility] Cholesterol.total/Cholesterol in HDL [Mass Ratio] in Serum o r Plasma 4.3 3.2 - 4.4 [facility] LDL/HDL 3.33 1.47 - 3.[address] [facility] ital CVE RISK CHOL/HDL LDL/HDLMEN: 1/2 AVERAGE 3.43 1.00 AVERAGE 4.97 3.55 2X AVERAGE 9.55 6.25 3X AVERAGE 23.99 7.99WOMEN: 1/2 AVERAGE 3.27 1.47 AVERAGE 4.44 3.22 2X AVERAGE 7.05 5.03 3X AVERAGE 11.04 6.14 ID Date Data Source [id number] 10/18/2020 02:11:00 PM EST [facility] Name Value Range Interpretation Code Description Data Yadi rce(s) Supporting Document(s) COMPREHENSIVE METABOLIC PANEL [facility] COMPREHENSIVE METABOLIC PANEL Sodium [Moles/volume] in Serum or Plasma 139 mEq/L 134 - 153 [facility] Potassium [Moles/volume] in Serum or Plasma 4.1 mEq/L 3.6 - 5.0 [facility] Chloride [Moles/volume] in Serum or Plasma 105 mEq/L 98 - 107 [facility] Carbon dioxide, total [Moles/volume] in Serum or Plasma 26 MEQ/L 22 - 30 [facility] Glucose [Mass/volume] in Serum or Plasma 99 MG/DL 70 - 99 [facility] BUN 13 MG/DL 7 - 21 [facility] al Creatinine [Mass/volume] in Serum or Plasma 0.6 MG/DL 0.7 - 1.5 L [facility] BUN/CREAT 22 8 - 27 [facility] al Protein [Mass/volume] in Serum or Plasma 6.7 G/DL 6.3 - 8.2 [facility] Albumin [Mass/volume] in Serum or Plasma 4.4 G/DL 3.9 - 5.0 [facility] Globulin [Mass/volume] in Serum by calculation 2.3 GM/DL 2.4 - 3.2 L [facility] A/G RATIO 1.9 0.8 - 2.0 [facility] Calcium [Mass/volume] in Serum or Plasma 9.1 MG/DL 8.4 - 10.2 [facility] Bilirubin.total [Mass/volume] in Serum or Plasma <0.7 MG/DL 0.2 - 1.3 [facility] Alkaline phosphatase [Enzymatic activity/volume] in Serum or Plasma 67 U/L 38 - 126 [facility] Aspartate aminotransferase [Enzymatic activity/volume] in Serum or Plasma 12 U/L 5 - 40 [facility] Alanine aminotransferase [Enzymatic activity/volume] in Seru m or Plasma 10 U/L 7 - 56 [facility] Anion gap 3 in Serum or Plasma 8.0 mmol/L 8.0 - 16.0 [facility] AGE 35 yrs [facility] al NON-AA GFR >60 mL/min [facility] ital AFR AMER GFR >60 mL/min [facility] Male GFR In terprentation 20-49 [...] >32 mL/min Normal ID Date Data Source [id number] 10/18/2020 01:43:00 PM EST [facility] Name Value Range Interpretation Code Description Data Yadi rce(s) Supporting Document(s) Hemoglobin A1c/Hemoglobin.total in Blood 5.1 % 4.4 - 6.1 [facility] {A1]{HB] ID Date Data Source [id number] 10/18/2020 01:22:00 PM EST [facility] Name Value Range Interpretation Code Description Data Yadi [facility](s) Supporting Document(s) CBC W/AUTOMATED DIFF [facility] COMPLETE BLOOD COUNT Leukocytes [#/volume] in Blood by Automated count 11.1 10^3/uL 4.2 - 11.0 H [facility] Erythrocytes [#/volume] in Blood by Automated count 4.52 10^6/uL 4. 20 - 5.40 [facility] Hemoglobin [Mass/volume] in Blood 13.5 g/dL 12.0 - 16.0 [facility] Hematocrit [Volume Fraction] of Blood by Automated count 40.8 % 3 7.0 - 47.0 [facility] Erythrocyte mean corpuscular volume [Entitic volume] by Auto mated count 90.3 fL 81.0 - 101 [facility] Erythrocyte mean corpuscular hemoglobin [Entitic mass] by Automated count 29.9 pg 27.0 - 34.0 [facility] Erythrocyte mean corpuscular hemoglobin concentration [Mass/volume] by Automated count 33.1 g/dL 31.0 - 36.0 [facility] Erythrocyte distribution width [Ratio] by Automated count 13.1 % 11.5 - 14.5 [facility] Platelets [#/volume] in Blood by Automated count 239 10^3/uL 150 - 45 0 [facility] Platelet mean volume [Entitic volume] in Blood by Automated count 8.3 fL 7.4 - 10.4 [facility] Neutrophils/100 leukocytes in Blood by Automated count 49.1 % 37. 0 - 80.0 [facility] Lymphocytes/100 leukocytes in Blood by Manual count 40.2 % 25.0 - 40.0 H [facility] Monocytes/100 leukocytes in Blood by Automated count 7.2 % 3.0 - 8.0 [facility] Eosinophils/100 leukocytes in Blood by Automated count 2.8 % 0.0 - 7.0 [facility] Basophils/100 leukocytes in Blood by Automated count 0.5 % 0.0 - 2.5 [facility] %IG 0.2 % 0.0 - 0.0 H [facility] al %NRBC 0.0 % 0.0 - 0.0 [facility] al Neutrophils [#/volume] in Blood by Automated count 5.46 10^3/uL 2.00 - 6.90 [facility] Lymphocytes [#/volume] in Blood by Automated count 4.46 10^3/uL 0.60 - 3.40 H [facility] Monocytes [#/volume] in Blood by Automated count 0.80 10^3/uL 0.00 - 0.90 [facility] Eosinophils [#/volume] in Blood by Automated count 0.31 10^3/uL 0.00 - 0.70 [facility] Basophils [#/volume] in Blood by Automated count 0.05 10^3/uL 0.00 - 0.20 [facility] #IG 0.02 10^3/uL 0.00 - 0.10 [facility] ospital #NRBC 0.00 10^3/uL 0.00 - 0.00 [facility] ospital MANUAL DIFF NOT INDICATED [facility] RBC MORPH NOT INDICATED [facility] spital ID Date Data Source [id number] 10/01/2020 03:36:00 PM EST [facility] ([facility]) Name Value Range Interpretation Code Description Data Yadi rce(s) Supporting Document(s) Ferritin [Mass/volume] in Serum or Plasma 66 ng/mL 8-252 Normal (applies to non- numeric results) [facility] ([facility]) <content>note:<nlbl:demographic_changed> </content>
<content></content> ID Date Data Source [id number] 10/01/2020 03:36:00 PM EST [facility] ([facility]) Name Value Range Interpretation Code Description Data Yadi rce(s) Supporting Document(s) Iron (Fe) 34 ug/dL 50-170 Below low normal [facility] ( [facility]) Percent Saturation 13.1 % 13.2-45.0 Below low normal [facility] ([facility]) Total Iron Binding Capacity 259 ug/dL 250-450 Norm al (applies to non-numeric results) [facility] ([facility]) ID Date Data Source [id number] 10/01/2020 03:36:00 PM EST [facility] ([facility]) Name Value Range Interpretation Code Description Data Yadi rce(s) Supporting Document(s) Red Blood Count 4.42 10 4.00-5.40 Normal (applies to non-numeric results) [facility] ([facility]) White Blood Count 14.5 10 4.0-10.0 Above high normal [facility] ([facility]) Hematocrit 41.2 % 36.0-47.0 Normal (applies to non-numeric resul ts) [facility] ([facility]) Hemoglobin 13.2 g/dL 12.0-15.5 Normal (applies to non-numeric resul ts) [facility] ([facility]) Mean Corpuscular Volume 93.2 fl 80.0-96.0 Normal ( applies to non-numeric results) [facility] ([facility]) Mean Corpuscular Hemoglobin 29.9 pg 27.0-33.0 Norm al (applies to non-numeric results) [facility] ([facility]) Mean Corpuscular HGB Conc 32.0 g/dL 32.0-36.5 Normal (applies to non-numeric results) [facility] ([facility]) Red Cell Distribution Width 13.0 % 11.5-14.5 Norm al (applies to non-numeric results) [facility] ([facility]) Platelet Count, Automated 274 10 150-450 Normal (applies to non-numeric results) [facility] ([facility]) Lymph % 28.4 % 24.0-44.0 Normal (applies to non-numeric resul ts) [facility] ([facility]) Neutrophils % 63.4 % 36.0-66.0 Normal (applies to non-numeric re sults) [facility] ([facility]) Eos % 2.2 % 0.0-3.0 Normal (applies to non-numeric resul ts) [facility] ([facility]) [place] % 5.3 % 0.0-5.0 Above high normal [facility] ([facility]) Baso % 0.3 % 0.0-1.0 Normal (applies to non-numeric resul ts) [facility] ([facility]) Immature Granulocyte % 0.4 % 0-3.0 Normal (applies to non-n umeric results) [facility] ([facility]) Nucleated Red Blood Cell % 0.0 % 0-0 Normal (applies to n on-numeric results) [facility] ([facility]) Neutrophils # 9.2 10 1.5-8.5 Above high normal [facility] NT ([facility]) Lymph # 4.1 10 1.5-5.0 Normal (applies to non-numeric resul ts) [facility] ([facility]) [place] # 0.8 10 0.0-0.8 Normal (applies to non-numeric resul ts) [facility] ([facility]) Eos # 0.3 10 0.0-0.5 Normal (applies to non-numeric resul ts) [facility] ([facility]) Baso # 0.1 10 0.0-0.2 Normal (applies to non-numeric resul ts) [facility] ([facility]) ID Date Data Source [id number] 09/17/2020 01:03:00 PM EST [facility] ([facility]) Name Value Range Interpretation Code Description Data Yadi rce(s) Supporting Document(s) Sars-CoV-2, Anne Laboratory test result [facility] ([facility]) This nucleic acid amplification test was developed and its performance characteristics determined by [employer]. Nucleic acid amplification tests include RT-PCR and [...] finding (navigational concept) Laboratory test result [facility] ([facility]) ID Date Data Source [id number] 09/17/2020 01:03:00 PM EST [facility] Name Value Range Interpretation Code Description Data Yadi rce(s) Supporting Document(s) SARS coronavirus [address] [facility] This lab was ordered by [facility] kylah and reported by [email or web address]. ID Date Data Source [id number] 09/19/2020 05:20:00 PM EST [facility] Name Value Range Interpretation Code Description Data Yadi rce(s) Supporting Document(s) SARS-CoV-2, ANNE Not Detected Not Detected [facility] This nucleic acid amplification test was developed and its performancecharacteristics determined by [facility]. Nucleic acidamplification tests include RT-PCR and [...] assay. ORDER COVID 19 2 DAY YES [facility] ID Date Data Source [id number] 09/17/2020 01:03:00 PM EST [facility] ([facility]) Name Value Range Interpretation Code Description Data Yadi rce(s) Supporting Document(s) Laboratory test finding (navigational concept) Laboratory test result [facility] ([facility]) ID Date Data Source [id number] 08/12/2020 03:55:00 PM EST [facility] ([facility]) Name Value Range Interpretation Code Description Data Yadi rce(s) Supporting Document(s) PDF Laboratory test result [facility] ([facility]) {DIAGNOSIS: F12.20~{MEDICATIONS/DECLARE D: IBUPROFEN, LITHIUM, MAXALT~{PRESCRIPTION INFO: PROPR Laboratory test finding (navigational concept) Laboratory test result [facility] ([facility]) {DIAGNOSIS: F12.20~{MEDICATIONS/DECLARE D: IBUPROFEN, LITHIUM, MAXALT~{PRESCRIPTION INFO: PROPR ID Date Data Source [id number] 08/18/2020 12:10:00 PM [facility] Name Value Range Interpretation Code Description Data Yadi rce(s) Supporting Document(s) Drugs identified in Urine FINAL [facility] TOXASSURE SELECT 13 (MW) Test Result [...] include following reported medications: Cariprazine (Vraylar) Ibuprofen [place] Propranolol Rizatriptan (Maxalt) For clinical consultation, please call . Report . [facility] ID Date Data Source [id number] 06/18/2020 11:46:00 AM EDT [facility] ([facility]) Name Value Range Interpretation Code Description Data Yadi rce(s) Supporting Document(s) Thyrotropin [Units/volume] in Serum or Plasma 0.44 uIU/mL 0. 47-5.01 Below low normal [facility] ([facility]) Thyroxine (T4) free [Mass/volume] in Serum or Plasma 1.72 ng/dL 0.93-1.70 Above high normal [facility] ([facility]) Triiodothyronine (T3) [Mass/volume] in Serum or Plasma 130 ng/dL 71- 180 [facility] ([facility]) Thyrotropin receptor Ab [Units/volume] in Serum Laboratory t est result 0.00-1.75 [facility] ([facility]) Thyroid stimulating immunoglobulins actual/normal in [facility] Laboratory test result 0.00-0.55 [facility] ([facility]) ID Date Data Source [id number] 06/18/2020 11:46:00 AM EDT [facility] ([facility] ) Name Value Range Interpretation Code Description Data Yadi rce(s) Supporting Document(s) Triiodothyronine (T3) [Mass/volume] in Serum or Plasma 130 ng/dL 71- 180 [facility] ([facility]) Thyrotropin [Units/volume] in Serum or Plasma 0.44 uIU/mL 0.47-5.01 [facility] ([facility] ) Thyroxine (T4) free [Mass/volume] in Serum or Plasma 1.72 ng/dL 0.93- 1.70 [facility] ([facility]) Thyrotropin receptor Ab [Units/volume] in Serum Laboratory t est result 0.00-1.75 [facility] ([facility]) Thyroid-Stimulating Immunoglobulin (Tsi) Laboratory test result 0.00- 0.55 [facility] ([facility]) ID Date Data Source [id number] 06/22/2020 01:58:00 PM EDT [facility] Name Value Range Interpretation Code Description Data Yadi rce(s) Supporting Document(s) Thyrotropin receptor Ab [Units/volume] in Serum <1.10 IU/L 0.00-1.75 [facility] ID Date Data Source [id number] 06/20/2020 07:36:00 AM EDT [facility] Name Value Range Interpretation Code Description Data Yadi rce(s) Supporting Document(s) Thyroid stimulating immunoglobulins [Units/volume] in Serum <0.10 IU/L 0.00-0.55 [facility] ID Date Data Source [id number] 06/19/2020 08:27:00 AM EDT [facility] Name Value Range Interpretation Code Description Data Yadi rce(s) Supporting Document(s) Triiodothyronine (T3) [Mass/volume] in Serum or Plasma 130 ng/dL 71- 180 [facility] ID Date Data Source [id number] 06/18/2020 12:36:00 PM EDT [facility] Name Value Range Interpretation Code Description Data Yadi rce(s) Supporting Document(s) Thyroxine (T4) free index in Serum or Plasma by calculation 1.72 NG/DL 0.93 - 1.70 H [facility] ID Date Data Source [id number] 06/18/2020 12:36:00 PM EDT [facility] Name Value Range Interpretation Code Description Data Yadi rce(s) Supporting Document(s) Thyrotropin [Units/volume] in Serum or Plasma by Detec tion limit <= 0.05 mIU/L 0.44 uIU/mL 0.47 - 5.01 L [facility] ID Date Data Source [id number] 06/04/2020 02:00:00 PM EDT [facility] ([facility]) Name Value Range Interpretation Code Description Data Yadi rce(s) Supporting Document(s) Thyrotropin [Units/volume] in Serum or Plasma 0.26 uIU/mL 0. 47-5.01 Below low normal [facility] ([facility]) Thyroxine (T4) free [Mass/volume] in Serum or Plasma 1.73 ng/dL 0.93-1.70 Above high normal [facility] ([facility]) Thyroid stimulating immunoglobulins actual/normal in [facility] Laboratory test result 0.00-0.55 [facility] ([facility]) ID Date Data Source [id number] 06/04/2020 02:00:00 PM EDT [facility] ([facility] ) Name Value Range Interpretation Code Description Data Yadi rce(s) Supporting Document(s) Thyrotropin [Units/volume] in Serum or Plasma 0.26 uIU/mL 0.47-5.01 [facility] ([facility] ) Thyroid-Stimulating Immunoglobulin (Tsi) Laboratory test result 0.00- 0.55 [facility] ([facility]) Thyroxine (T4) free [Mass/volume] in Serum or Plasma 1.73 ng/dL 0.93- 1.70 [facility] ([facility]) ID Date Data Source [id number] 06/07/2020 01:50:00 PM EDT [facility] Name Value Range Interpretation Code Description Data Yadi rce(s) Supporting Document(s) Thyroid stimulating immunoglobulins [Units/volume] in Serum <0.10 IU/L 0.00-0.55 [facility] ID Date Data Source [id number] 06/04/2020 03:05:00 PM EDT [facility] Name Value Range Interpretation Code Description Data Yadi rce(s) Supporting Document(s) Thyroxine (T4) free index in Serum or Plasma by calculation 1.73 NG/DL 0.93 - 1.70 H [facility] ID Date Data Source [id number] 06/04/2020 03:05:00 PM EDT [facility] Name Value Range Interpretation Code Description Data Yadi rce(s) Supporting Document(s) Thyrotropin [Units/volume] in Serum or Plasma by Detec tion limit <= 0.05 mIU/L 0.26 uIU/mL 0.47 - 5.01 L [facility] ID Date Data Source [id number] 05/13/2020 01:33:00 PM EDT [facility] ([facility]) Name Value Range Interpretation Code Description Data Yadi rce(s) Supporting Document(s) Thyrotropin [Units/volume] in Serum or Plasma 0.11 uIU/mL 0. 47-5.01 Below low normal [facility] ([facility]) Thyroxine (T4) free [Mass/volume] in Serum or Plasma 1.52 ng/dL 0.93- 1.70 [facility] ([facility]) Cobalamin (Vitamin B12) [Mass/volume] in Serum or Plasma 299 pg/mL 2 32-1245 [facility] ([facility]) ID Date Data Source [id number] 05/13/2020 01:33:00 PM EDT [facility] ([facility]) Name Value Range Interpretation Code Description Data Yadi rce(s) Supporting Document(s) Uibc 162 ug/dL 112-347 [facility] ([facility]) Tibc 211 ug/dL 250-450 Below low normal [facility] ( [facility]) Iron 49 ug/dL 42-135 [facility] ([facility]) Iron Sat 23 % [facility] ([facility]) ID Date Data Source [id number] 05/13/2020 01:33:00 PM EDT [facility] ([facility]) Name Value Range Interpretation Code Description Data Yadi rce(s) Supporting Document(s) Ferritin [Mass/volume] in Serum or Plasma 198.7 ng/mL 3.0-105 Above high normal [facility] ([facility]) ID Date Data Source [id number] 05/13/2020 05:37:00 PM EDT [facility] Value Range Interpretation Code Description Data Yadi rce(s) Supporting Document(s) Cobalamin (Vitamin B12) [Mass/volume] in Serum or Plasma 299 PG/ML 232 - 1245 [facility] ID Date Data Source [id number] 05/13/2020 05:37:00 PM EDT [facility] Value Range Interpretation Code Description Data Yadi rce(s) Supporting Document(s) Thyroxine (T4) free index in Serum or Plasma by calculation 1.52 NG/DL 0.93 - 1.70 [facility] ID Date Data Source [id number] 05/13/2020 05:37:00 PM EDT [facility] Value Range Interpretation Code Description Data Yadi rce(s) Supporting Document(s) Thyrotropin [Units/volume] in Serum or Plasma by Detec tion limit <= 0.05 mIU/L 0.11 uIU/mL 0.47 - 5.01 L [facility] ID Date Data Source [id number] 05/13/2020 05:36:00 PM EDT [facility] Network Value Range Interpretation Code Description Data Yadi rce(s) Supporting Document(s) Ferritin [Mass/volume] in Serum or Plasma 198.7 ng/mL 3.0 - 105 H [facility] ID Date Data Source [id number] 05/13/2020 05:27:00 PM EDT [facility] Name Value Range Interpretation Code Description Data Yadi rce(s) Supporting Document(s) Iron [Mass/volume] in Serum or Plasma 49 UG/DL 42 - 135 [facility] Iron binding capacity.unsaturated [Mass/volume] in Serum or Plasma 162 UG/DL 112 - 347 [facility] Iron binding capacity [Mass/volume] in Serum or Plasma 211 ug/dL 250 - 450 L [facility] Iron saturation [Mass Fraction] in Serum or Plasma 23 % [facility] Procedure Social History Code Duration Value Status Description Data Source(s ) Smoking 01/30/2021 12:00:00 AM EDT Patient is a former smoker completed Patient is a former smoker [facility] ([facility]) Vital Signs ID Date Data Source UNK Name Value Range Interpretation Code Description Data Source(s) Body surface area Derived from formula 1.68 m2 1.68 m2 [facility] ([facility]) Body mass index (BMI) [Ratio] 23.9 kg/m2 23.9 k g/m2 [facility] ([facility]) Body height 64 [in_i] 64 [in_i] [facility] ([facility]) 5'4" Systolic blood pressure 110 mm[Hg] 110 mm[Hg] M [facility] ([facility]) Diastolic blood pressure 72 mm[Hg] 72 mm[Hg] [facility] ([facility]) Heart rate 70 /min 70 /min [facility] ([facility]) Body temperature 97.1 [degF] 97.1 [degF] [facility] ([facility]) Respiratory rate 18 /min 18 /min [facility] ( [facility]) Oxygen saturation in Arterial blood by Pulse oximetry 99 % 99 % [facility] ([facility]) Body weight 139.00 [lb_av] 139.00 [lb_av] [facility] ([facility]) Body weight 63.050 kg 63.050 kg [facility] ([facility]) Respiratory rate 16 /min 16 /min [facility] ( [facility]) Diastolic blood pressure 82 mm[Hg] 82 mm[Hg] [facility] ([facility]) Systolic blood pressure 128 mm[Hg] 128 mm[Hg] [facility] ([facility]) Body mass index (BMI) [Ratio] 28.0 kg/m2 28.0 k g/m2 [facility] ([facility]) Body height 61 [in_i] 61 [in_i] [facility] ([facility]) 5'1" Diastolic blood pressure 72 mm[Hg] 72 mm[Hg] [facility] ([facility]) Body surface area Derived from formula 1.66 m2 1.66 m2 [facility] ([facility]) Heart rate 88 /min 88 /min [facility] ([facility]) Respiratory rate 18 /min 18 /min [facility] ( [facility]) Oxygen saturation in Arterial blood by Pulse oximetry 93 % 93 % [facility] ([facility]) Body weight 148.00 [lb_av] 148.00 [lb_av] [facility] ([facility]) Body weight 67.133 kg 67.133 kg [facility] ([facility]) Body temperature 97.3 [degF] 97.3 [degF] [facility] ([facility]) Systolic blood pressure 134 mm[Hg] 134 mm[Hg] [facility] ([facility]) Oxygen saturation in Arterial blood by Pulse oximetry 100 % 100 % [facility] ([facility]) Systolic blood pressure 112 mm[Hg] 112 mm[Hg] [facility] ([facility]) Diastolic blood pressure 71 mm[Hg] 71 mm[Hg] [facility] ([facility]) Heart rate 100 /min 100 /min [facility] ([facility]) Body temperature 98.0 [degF] 98.0 [degF] [facility] ([facility]) Systolic blood pressure 128 mm[Hg] 128 mm[Hg] [facility] ([facility]) Respiratory rate 18 /min 18 /min [facility] ( [facility]) Oxygen saturation in Arterial blood by Pulse oximetry 99 % 99 % [facility] ([facility]) Diastolic blood pressure 82 mm[Hg] 82 mm[Hg] [facility] ([facility]) Heart rate 94 /min 94 /min [facility] ([facility]) Body temperature 98.4 [degF] 98.4 [degF] [facility] ([facility]) Heart rate 101 /min 101 /min [facility] ([facility]) Body temperature 99.1 [degF] 99.1 [degF] [facility] ([facility]) Oxygen saturation in Arterial blood by Pulse oximetry 96 % 96 % [facility] ([facility]) Body mass index (BMI) [Ratio] 30.0 kg/m2 30.0 k g/m2 [facility] ([facility]) Body surface area Derived from formula 1.71 m2 1.71 m2 [facility] ([facility]) Body height 61 [in_i] 61 [in_i] [facility] ([facility]) 5'1" Heart rate 83 /min 83 /min [facility] ([facility]) Body temperature 96.2 [degF] 96.2 [degF] [facility] ([facility]) Body weight 72.122 kg 72.122 kg [facility] ([facility]) Systolic blood pressure 102 mm[Hg] 102 mm[Hg] [facility] ([facility]) Diastolic blood pressure 60 mm[Hg] 60 mm[Hg] [facility] ([facility]) Respiratory rate 14 /min 14 /min [facility] ( [facility]) Oxygen saturation in Arterial blood by Pulse oximetry 95 % 95 % [facility] ([facility]) Body weight 159.00 [lb_av] 159.00 [lb_av] [facility] ([facility]) Diastolic blood pressure 60 mm[Hg] 60 mm[Hg] [facility] ([facility] ) Heart rate 64 /min 64 /min [facility] ([facility] ) Body temperature 97.3 [degF] 97.3 [degF] [facility] ([facility] ) Body height 61 [in_i] 61 [in_i] [facility] ([facility] ) 5'1" Body weight 158.44 [lb_av] 158.44 [lb_av] [facility] ([facility] ) Body mass index (BMI) [Ratio] 29.9 kg/m2 29.9 k g/m2 [facility] ([facility] ) Oxygen saturation in Arterial blood by Pulse oximetry 98 % 98 % [facility] ([facility]) Systolic blood pressure 120 mm[Hg] 120 mm[Hg] M [facility] ([facility]) Oxygen saturation in Arterial blood by Pulse oximetry 96 % 96 % [facility] ([facility]) Systolic blood pressure 102 mm[Hg] 102 mm[Hg] [facility] Body temperature 99.2 [degF] 99.2 [degF] [facility] ([facility]) Diastolic blood pressure 62 mm[Hg] 62 mm[Hg] [facility] ([facility]) Heart rate 102 /min 102 /min [facility] ([facility]) Systolic blood pressure 123 mm[Hg] 123 mm[Hg] M [facility] ([facility]) Body temperature 98.2 [degF] 98.2 [degF] [facility] ([facility]) Diastolic blood pressure 73 mm[Hg] 73 mm[Hg] [facility] ([facility]) Heart rate 100 /min 100 /min [facility] ([facility]) Respiratory rate 16 /min 16 /min [facility] ( [facility]) Oxygen saturation in Arterial blood by Pulse oximetry 98 % 98 % [facility] ([facility]) Systolic blood pressure 102 mm[Hg] 102 mm[Hg] M [facility] ([facility]) Diastolic blood pressure 76 mm[Hg] 76 mm[Hg] [facility] ([facility]) Heart rate 107 /min 107 /min [facility] ([facility]) Body temperature 98.8 [degF] 98.8 [degF] [facility] ([facility]) Oxygen saturation in Arterial blood by Pulse oximetry 96 % 96 % [facility] ([facility]) Body temperature 98.6 [degF] 98.6 [degF] [facility] ([facility]) Oxygen saturation in Arterial blood by Pulse oximetry 96 % 96 % [facility] ([facility]) Systolic blood pressure 102 mm[Hg] 102 mm[Hg] [facility]) Diastolic blood pressure 80 mm[Hg] 80 mm[Hg] [facility] ([facility]) Heart rate 87 /min 87 /min [facility] ([facility]) Heart rate 113 /min 113 /min [facility] ([facility]) Body temperature 98.9 [degF] 98.9 [degF] [facility] Oxygen saturation in Arterial blood by Pulse oximetry 98 % 98 % [facility] ([facility]) Body weight 155.00 [lb_av] 155.00 [lb_av] [facility] ([facility]) Systolic blood pressure 90 mm[Hg] 90 mm[Hg] M [facility] ([facility]) Oxygen saturation in Arterial blood by Pulse oximetry 98 % 98 % [facility] ([facility]) Body height 61 [in_i] 61 [in_i] [facility] ([facility]) 5'1" Body mass index (BMI) [Ratio] 29.3 kg/m2 29.3 k g/m2 [facility] ([facility]) Body surface area Derived from formula 1.69 m2 1.69 m2 [facility] ([facility]) Body temperature 99.0 [degF] 99.0 [degF] [facility] ([facility]) Respiratory rate 18 /min 18 /min [facility] ( [facility]) Body weight 70.308 kg 70.308 kg [facility] Diastolic blood pressure 40 mm[Hg] 40 mm[Hg] [facility] Heart rate 98 /min 98 /min [facility] ([facility]) Diastolic blood pressure--sitting 52 mm[Hg] 52 mm[Hg] [facility] ([facility]) Manual Left Arm Respiratory rate 16 /min 16 /min [facility] ( [facility]) Oxygen saturation in Arterial blood by Pulse oximetry 98 % 98 % [facility] ([facility]) Body temperature 98.2 [degF] 98.2 [degF] [facility] Oral Heart rate 68 /min 68 /min [facility] ([facility]) Body height 61 [in_i] 61 [in_i] [facility] ([facility]) 5'1" Body weight 66.736 kg 66.736 kg [facility] ([facility]) Body weight 147.12 [lb_av] 147.12 [lb_av] [facility] ([facility]) Body surface area Derived from formula 1.66 m2 1.66 m2 [facility] ([facility]) Systolic blood pressure--sitting 98 mm[Hg] 98 mm[Hg] [facility] ([facility]) Manual Left Arm Body mass index (BMI) [Ratio] 27.8 kg/m2 27.8 k g/m2 [facility] ([facility]) Oxygen saturation in Arterial blood by Pulse oximetry 98 % 98 % [facility] ([facility] ) Diastolic blood pressure 88 mm[Hg] 88 mm[Hg] [facility] ([facility] ) Heart rate 84 /min 84 /min [facility] ([facility] ) Body temperature 98.4 [degF] 98.4 [degF] [facility] ([facility] ) Body height 61 [in_i] 61 [in_i] [facility] ([facility]) 5'1" Body weight 152.25 [lb_av] 152.25 [lb_av] [facility] ([facility] ) Body mass index (BMI) [Ratio] 28.8 kg/m2 28.8 k g/m2 [facility] ([facility] ) Systolic blood pressure 132 mm[Hg] 132 mm[Hg] M [facility] ([facility] ) Body temperature 98.9 [degF] 98.9 [degF] [facility] ([facility]) Oxygen saturation in Arterial blood by Pulse oximetry 98 % 98 % [facility] ([facility]) Body weight 152.00 [lb_av] 152.00 [lb_av] [facility] ([facility]) Respiratory rate 16 /min 16 /min [facility] ( [facility]) Body weight 68.947 kg 68.947 kg [facility] ([facility]) Body height 61 [in_i] 61 [in_i] [facility] ([facility]) 5'1" Body mass index (BMI) [Ratio] 28.7 kg/m2 28.7 k g/m2 [facility] ([facility]) Body surface area Derived from formula 1.68 m2 1.68 m2 [facility] ([facility]) Systolic blood pressure 116 mm[Hg] 116 mm[Hg] M [facility] ([facility]) Diastolic blood pressure 80 mm[Hg] 80 mm[Hg] [facility] ([facility]) Heart rate 73 /min 73 /min [facility] ([facility]) Systolic blood pressure 126 mm[Hg] 126 mm[Hg] M [facility] ([facility] ) Diastolic blood pressure 76 mm[Hg] 76 mm[Hg] [facility] ([facility] ) Heart rate 87 /min 87 /min [facility] ([facility]) Body temperature 97.6 [degF] 97.6 [degF] [facility] ([facility]) Body height 61 [in_i] 61 [in_i] [facility] ([facility]) 5'1" Body weight 133.50 [lb_av] 133.50 [lb_av] [facility] ([facility] ) Body mass index (BMI) [Ratio] 25.2 kg/m2 25.2 k g/m2 [facility] ([facility]) Oxygen saturation in Arterial blood by Pulse oximetry 98 % 98 % [facility] ([facility]) Respiratory rate 16 /min 16 /min [facility] ( [facility]) Diastolic blood pressure 80 mm[Hg] 80 mm[Hg] [facility] ([facility]) Heart rate 88 /min 88 /min [facility] ([facility]) Oxygen saturation in Arterial blood by Pulse oximetry 99 % 99 % [facility] ([facility]) Body temperature 98.2 [degF] 98.2 [degF] [facility] ([facility]) Systolic blood pressure 115 mm[Hg] 115 mm[Hg] M [facility] ([facility]) Heart rate 87 /min 87 /min [facility] ([facility]) Body temperature 98.7 [degF] 98.7 [degF] [facility] ([facility]) Systolic blood pressure 113 mm[Hg] 113 mm[Hg] M [facility] ([facility]) Oxygen saturation in Arterial blood by Pulse oximetry 99 % 99 % [facility] ([facility]) Diastolic blood pressure 74 mm[Hg] 74 mm[Hg] [facility] ([facility]) Respiratory rate 16 /min 16 /min [facility] ( [facility]) Systolic blood pressure 118 mm[Hg] 118 mm[Hg] M [facility] ([facility]) Diastolic blood pressure 74 mm[Hg] 74 mm[Hg] [facility] ([facility]) Heart rate 86 /min 86 /min [facility] ([facility]) Body temperature 97.2 [degF] 97.2 [degF] [facility] ([facility]) Respiratory rate 18 /min 18 /min [facility] ( [facility]) Oxygen saturation in Arterial blood by Pulse oximetry 96 % 96 % [facility] ([facility]) Body weight 138.00 [lb_av] 138.00 [lb_av] [facility] ([facility]) Body weight 62.597 kg 62.597 kg [facility] ([facility]) Body height 61 [in_i] 61 [in_i] [facility] ([facility]) 5'1" Body mass index (BMI) [Ratio] 26.1 kg/m2 26.1 k g/m2 [facility] ([facility]) Body surface area Derived from formula 1.61 m2 1.61 m2 [facility] ([facility])
[2021-06-21 22:15] LABS: HCG, SERUM QUALITATIVE NEGATIVE (NEGATIVE)
[2021-06-21 22:16] LABS: ACETAMINOPHEN LEVEL < 2.0 UG/ML (10.0-30.0); ALBUMIN 3.6 GM/DL (3.2-5.2); ALT/SGPT 20 U/L (12-78); BILIRUBIN,DIRECT < 0.1 MG/DL (0.0-0.2); BILIRUBIN,TOTAL 0.5 MG/DL (0.2-1.0); BLOOD UREA NITROGEN 14 MG/DL (7-18); CALCIUM LEVEL 8.7 MG/DL (8.5-10.1); CARBON DIOXIDE LEVEL 25 MEQ/L (21-32); CHLORIDE LEVEL 111 MEQ/L (98-107); CREATININE FOR GFR 0.58 MG/DL (0.55-1.30); ETHYL ALCOHOL (ETHANOL) < 0.003 % (0.000-0.010); GLOMERULAR FILTRATION RATE > 60.0 (>60); GLUCOSE, FASTING 93 MG/DL (70-100); LITHIUM LEVEL < 0.20 MEQ/L (0.60-1.20); POTASSIUM SERUM 3.6 MEQ/L (3.5-5.1); SALICYLATE LEVEL 3.6 MG/DL (5.0-30.0); SODIUM LEVEL 142 MEQ/L (136-145); TOTAL PROTEIN 6.7 GM/DL (6.4-8.2)
[2021-06-21 23:44] LABS: AMPHETAMINES LEVEL URINE NEGATIVE (NEGATIVE); BARBITURATES URINE POSITIVE (NEGATIVE); BENZODIAZEPINES URINE NEGATIVE (NEGATIVE); CANNABINOIDS URINE POSITIVE (NEGATIVE); COCAINE METABOLITE URINE NEGATIVE (NEGATIVE); METHADONE URINE NEGATIVE (NEGATIVE); OPIATES URINE NEGATIVE (NEGATIVE); PHENCYCLIDINE URINE NEGATIVE (NEGATIVE)
[2021-06-22 00:23] LABS: RSV AMPLIFICATION NEGATIVE (NEGATIVE)
[2021-06-22] MEDS ORDERED: VRAY1.5C PO (01:13)
[2021-06-22] MEDS ORDERED: HOME MED LIST COMPLETE! XX SCH (01:20)
[2021-06-22] MEDS ORDERED: CARIPRAZINE 1.5MG CAPSULE (VRAYLAR) PO SCH (09:00)
[2021-06-22] MEDS: LITHIUM CARBONATE 300 MG CAP PO SCH ×2 (09:28→16:08)
[2021-06-22 19:29] VITALS: BP 118/78
--- NOTE | 2021-06-23 05:39 | ECGEPIP ---
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
== END 2021-06-22 19:35 ==
LOC: M ED 20:52
DX: F31.89 Other bipolar disorder (principal); Z79.899 Other long term (current) drug therapy